=== PATIENT | male | born 1965 | race Caucasian/White ===

== ENCOUNTER 2019-02-11 17:53 | Inpatient (IN) | payer SELFPAY ==
[~2019-02-11] VITALS: Ht 177.8 cm; Wt 74.0 kg
[2019-02-11] MEDS ORDERED: METF500T16 PO (19:13)
[2019-02-11] MEDS ORDERED: IV NORMAL SALINE 1000ML BAG 1,000 ML IV ONE ×2 (19:15→20:00)
[2019-02-11 19:24] LABS: BASO % 0 % (0-3); EOS % 0 % (0-3); HEMATOCRIT 42.9 % (39.0-53.0); HEMOGLOBIN 14.2 g/dL (13.0-17.5); LYMPH # 0.2 x10^3/uL (1.0-4.8); LYMPH % 2 % (24-48); MEAN CORPUSCULAR HEMOGLOBIN 33 pg (25-35); MEAN CORPUSCULAR HGB CONC 33 g/dL (31-37); MEAN CORPUSCULAR VOLUME 99 fL (79-100); MONO # 0.8 x10^3/uL (0.0-1.1); MONO % 7 % (0-9); NEUT # 10.9 x10^3/uL (1.8-7.7); NEUT % 91 % (31-73); PLATELET COUNT 330 x10^3/uL (140-400); RED BLOOD COUNT 4.33 x10^6/uL (4.30-5.70); RED CELL DISTRIBUTION WIDTH 13.9 % (11.5-14.5)
[2019-02-11 19:34] LABS: PROTHROMBIN TIME PATIENT 16.1 SEC (11.7-14.0)
[2019-02-11 19:50] LABS: ALBUMIN 3.2 g/dL (3.4-5.0); ALBUMIN/GLOBULIN RATIO 0.6 (1.0-1.7); CALCIUM 7.3 mg/dL (8.5-10.1); MAGNESIUM 3.1 mg/dL (1.8-2.4); TOTAL BILIRUBIN 0.7 mg/dL (0.2-1.0); TOTAL PROTEIN 8.8 g/dL (6.4-8.2)
[2019-02-11] MEDS ORDERED: ASPIRIN RECTAL 300 MG SUPP. PR ONE (20:00)
[2019-02-11] MEDS ORDERED: INSULIN REGULAR VIAL 150 UNIT in 0.9 % SODIUM CHLORIDE 150ML 150 ML IV PRN (20:00)
[2019-02-11] MEDS ORDERED: INSULIN REGULAR 100 UNIT/ML 3ML VIAL. SQ ONE (20:00)
[2019-02-11] MEDS ORDERED: POTASSIUM CHLORIDE 10MEQ 100 ML IV PRN ×3 (20:00)
[2019-02-11] MEDS ORDERED: INSULIN,REGULAR 150 UNIT DRIP 150 ML IV PRN (20:15)
[2019-02-11 20:18] LABS: % BANDS 4 % (0-9); % LYMPHS 4 % (24-48); % MONOS 8 % (0-10); % SEGS 84 % (35-66); PLATELET CLUMP PRESENT; PLT ESTIMATE ADEQUATE (ADEQUATE)
--- NOTE | 2019-02-11 20:20 | RAD ---
PQRS Compliance Statement: One or more of the following individualized dose reduction techniques were utilized for this examination: 1. Automated exposure control 2. Adjustment of the mA and/or kV according to patient size 3. Use of iterative reconstruction technique CT head without contrast 02/11/2019 7:07 PM INDICATION: Altered mental status COMPARISON: None available TECHNIQUE: Multiple axial CT images of the head were obtained from skull base through the vertex without intravenous contrast. FINDINGS: Head: Ventricles, sulci and basal cisterns are within normal limits. There is no hydrocephalus. Keith-white matter differentiation is normal. There is no acute intracranial hemorrhage. There is no mass, mass effect or midline shift. Posterior fossa is normal in appearance. Visualized portions of the orbits are normal. Paranasal sinuses are well aerated. Mastoid air cells are well aerated. Scalp and calvaria are normal. IMPRESSION: No acute intracranial hemorrhage. Electronically signed by: Pretty Deal MD (02/11/2019 8:17 PM) [facility]
[2019-02-11 20:23] LABS: CREATININE 20.7 mg/dL (0.7-1.3); GFR 2.4
[2019-02-11] MEDS ORDERED: ONDANSETRON PF 4 MG/2 ML VIAL. IV PRN (20:30)
[2019-02-11 20:32] LABS: BASE EXCESS COOX -17 mmol/L (-3-3); HCO3 COOX 8 mmol/L (21-28); METHEMOGLOBIN 0.6 % (0.0-1.9); OXYHEMOGLOBIN 92.3 %; PCO2 COOX 21 mmHg (35-46); PO2 COOX 84 mmHg (75-108); SAT O2 COOX 93 % (92-99)
--- NOTE | 2019-02-11 20:48 | PHYS DOC ---
Past Medical History Past Medical History: Diabetes-Type II Past Medical History Limited due to altered mental status Past Surgical History: No Surgical History Past Surgical History Limited due to altered mental status Additional Information: Nonsmoker Alcohol Use: None Drug Use: None Social History Limited due to altered mental status Adult General Chief Complaint Chief Complaint: ALTERED MENTAL STATUS HPI HPI 53-year-old male presents by private vehicle with his family with report of being "ill �1 week ". Patient reports has been unable to keep any medication or fluid down. Patient reports history of diabetes mellitus. Reports his been noncompliant with his medications. She reports he has felt so weak that he has been unable to ambulate over the last 2 days. Family is concerned as patient intermittently is confused. Denies fever or chills. Reports sore throat. Denies trauma. Denies chest pain or headache. History of presents illness limited due to altered mental status. Review of Systems Review of Systems Constitutional: Denies fever or chills Eyes: Denies redness or eye pain HENT: Denies nasal congestion; reports sore throat Respiratory: Denies cough or shortness of breath Cardiovascular: Denies chest pain or palpitations GI: Reports nausea and vomiting : Denies dysuria or hematuria Musculoskeletal: Denies back pain Integument: Denies rash or skin lesions Neurologic: Reports generalized weakness Review of systems limited due to patient's altered mental status Current Medications Current Medications Current Medications Medications (Trade) Dose Ordered Sig/Ismael Start Time Stop Time Status Last Admin Dose Admin Aspirin (Aspirin Rectal Supp) 300 mg 1X ONCE 02/11/19 20:00 02/11/19 20:03 DC 02/11/19 20:21 300 MG Calcium Gluconate (Calcium Gluconate) 1,000 mg 1X ONCE 02/11/19 21:00 02/11/19 21:01 DC 02/11/19 21:29 1,000 MG Insulin Human Regular 150 ml @ 0 mls/hr CONT PRN PRN 02/11/19 20:15 02/11/19 23:00 02/11/19 20:21 1 MLS/HR Insulin Human Regular (HumuLIN R VIAL) 9 unit 1X ONCE 02/11/19 20:00 02/11/19 20:01 DC 02/11/19 20:21 9 UNIT Insulin Human Regular 150 unit/ Sodium Chloride 151.5 ml @ 0 mls/hr CONT PRN PRN 02/11/19 20:00 Ondansetron HCl (Zofran) 4 mg PRN Q8HRS PRN 02/11/19 20:30 02/12/19 20:29 Potassium Chloride/Water 100 ml @ 100 mls/hr PRN Q1HR PRN 02/11/19 20:00 Sodium Chloride 1,000 ml @ 1,000 mls/hr 1X ONCE 02/11/19 20:00 02/11/19 20:59 DC 02/11/19 20:21 1,000 MLS/HR Allergies Allergies Allergies Coded Allergies Type Severity Reaction Last Updated Verified No Known Drug Allergies 02/11/19 No Physical Exam Physical Exam Constitutional: Well developed, well nourished, no acute distress, dehydration noted HENT: Normocephalic, atraumatic, oropharynx dry Eyes: PERRL, EOMI, conjunctiva normal, no discharge Neck: Normal range of motion, no tenderness, supple, no meningeal signs noted Cardiovascular: Heart rate tachycardic, regular rhythm Lungs & Thorax: Bilateral breath sounds clear to auscultation, no wheezing Abdomen: Soft, no tenderness Skin: Warm, dry, no erythema, dry Back: No tenderness, no CVA tenderness Extremities: No tenderness, ROM intact, no edema Neurologic: Alert and oriented x3, slow to respond, generalized weakness, strength to BLE 4/5 and BUE 4/5, no focal deficits noted Psychologic: Affect normal, judgement normal Current Patient Data Vital Signs Vital Signs Date Time Temp Pulse Resp B/P (MAP) Pulse Ox O2 Delivery O2 Flow Rate FiO2 02/11/19 21:00 102 26 94 02/11/19 19:01 98.0 141/79 (99) Room Air 98.0 Lab Values Laboratory Tests Test 02/11/19 19:00 02/11/19 20:20 White Blood Count 12.0 x10^3/uL (4.0-11.0) H Red Blood Count 4.33 x10^6/uL (4.30-5.70) Hemoglobin 14.2 g/dL (13.0-17.5) Hematocrit 42.9 % (39.0-53.0) Mean Corpuscular Volume 99 fL (79-100) Mean Corpuscular Hemoglobin 33 pg (25-35) Mean Corpuscular Hemoglobin Concent 33 g/dL (31-37) Red Cell Distribution Width 13.9 % (11.5-14.5) Platelet Count 330 x10^3/uL (140-400) Neutrophils (%) (Auto) 91 % (31-73) H Lymphocytes (%) (Auto) 2 % (24-48) L Monocytes (%) (Auto) 7 % (0-9) Eosinophils (%) (Auto) 0 % (0-3) Basophils (%) (Auto) 0 % (0-3) Neutrophils # (Auto) 10.9 x10^3/uL (1.8-7.7) H Lymphocytes # (Auto) 0.2 x10^3/uL (1.0-4.8) L Monocytes # (Auto) 0.8 x10^3/uL (0.0-1.1) Eosinophils # (Auto) 0.0 x10^3/uL (0.0-0.7) Basophils # (Auto) 0.0 x10^3/uL (0.0-0.2) Segmented Neutrophils % 84 % (35-66) H Band Neutrophils % 4 % (0-9) Lymphocytes % 4 % (24-48) L Monocytes % 8 % (0-10) Platelet Estimate Adequate (ADEQUATE) Platelet Clumps, EDTA Present Prothrombin Time 16.1 SEC (11.7-14.0) H Prothrombin Time INR 1.3 (0.8-1.1) H Activated Partial Thromboplast Time 26 SEC (24-38) Sodium Level 141 mmol/L (136-145) Potassium Level 7.0 mmol/L (3.5-5.1) *H Chloride Level 91 mmol/L (98-107) L Carbon Dioxide Level 7 mmol/L (21-32) *L Anion Gap 43 (6-14) H Blood Urea Nitrogen 212 mg/dL (8-26) H Creatinine 20.7 mg/dL (0.7-1.3) H Estimated GFR (Cockcroft-Gault) 2.4 BUN/Creatinine Ratio 10 (6-20) Glucose Level 737 mg/dL (70-99) *H Lactic Acid Level 2.9 mmol/L (0.4-2.0) H Calcium Level 7.3 mg/dL (8.5-10.1) L Magnesium Level 3.1 mg/dL (1.8-2.4) H Total Bilirubin 0.7 mg/dL (0.2-1.0) Aspartate Amino Transferase (AST) 18 U/L (15-37) Alanine Aminotransferase (ALT) 16 U/L (16-63) Alkaline Phosphatase 161 U/L (46-116) H Ammonia < 10 mcmol/L (11-34) L Creatine Kinase 2033 U/L (39-308) H Creatine Kinase MB (Mass) 2.8 ng/mL (0.0-3.6) Creatine Kinase MB Relative Index 0.1 % (0-4) Troponin I Quantitative 0.104 ng/mL (0.000-0.055) Total Protein 8.8 g/dL (6.4-8.2) H Albumin 3.2 g/dL (3.4-5.0) L Albumin/Globulin Ratio 0.6 (1.0-1.7) L Acetone Level Sm pos (NEG) O2 Saturation 93 % (92-99) Arterial Blood pH 7.23 (7.35-7.45) L Arterial Blood pCO2 at Patient Temp 21 mmHg (35-46) L Arterial Blood pO2 at Patient Temp 84 mmHg (75-108) Arterial Blood HCO3 8 mmol/L (21-28) L Arterial Blood Base Excess -17 mmol/L (-3-3) L Oxyhemoglobin 92.3 % Methemoglobin 0.6 % (0.0-1.9) Carbon Monoxide, Quantitative 0.2 % (0.0-1.9) FiO2 21 Laboratory Tests 02/11/19 19:00 Laboratory Tests 02/11/19 19:00 EKG EKG @1904 Sinus tachycardia at 101bpm, NO ST elevation, hyperacute t waves noted, Radiology/Procedures Radiology/Procedures PROCEDURE: CT HEAD WO CONTRAST PQRS Compliance Statement: One or more of the following individualized dose reduction techniques were utilized for this examination: 1. Automated exposure control 2. Adjustment of the mA and/or kV according to patient size 3. Use of iterative reconstruction technique CT head without contrast 02/11/2019 7:07 PM INDICATION: Altered mental status COMPARISON: None available TECHNIQUE: Multiple axial CT images of the head were obtained from skull base through the vertex without intravenous contrast. FINDINGS: Head: Ventricles, sulci and basal cisterns are within normal limits. There is no hydrocephalus. Keith-white matter differentiation is normal. There is no acute intracranial hemorrhage. There is no mass, mass effect or midline shift. Posterior fossa is normal in appearance. Visualized portions of the orbits are normal. Paranasal sinuses are well aerated. Mastoid air cells are well aerated. Scalp and calvaria are normal. IMPRESSION: No acute intracranial hemorrhage. Electronically signed by: Pretty Deal MD (02/11/2019 8:17 PM) [facility] CXR AP (preliminary interpretation by ED physician) Course & Med Decision Making Course & Med Decision Making Pertinent Labs and Imaging studies reviewed. (See chart for details) Patient presents with history of present illness and physical exam concerning for acute diabetic ketoacidosis. Ketosis noted on patient's breath. Patient clinically appears very dry. IV fluid hydration boluses provided of 0.9% normal saline �2. EKG with sinus tachycardia and hyperacute t waves. CT head/chest x- ray without acute process. Labs obtained and posted to chart. Patient acidotic to 7.23 with high anion gap. Hyperkalemia noted. BUN and Creat significantly elevated. Corrected serum sodium 156.3. Lactic acid elevated. 0.45% NS provided at rate. Patient requiring ICU admission for further evaluation and treatment. Discussed with Dr. Howard (hospitalist) who is in agreement with ICU admission. Discussed case with Dr. Argueta (nephrology) who plans to dialyze patient this asia barroso. Requests interventional dialysis cath to be placed. Discussed case with Dr. Mobley (interventional radiology) regarding. Discussed findings and plan with patient and family, who acknowledge understanding and agreement. Dragon Disclaimer Dragon Disclaimer This electronic medical record was generated, in whole or in part, using a voice recognition dictation system. Departure Departure Impression: Primary Impression: DKA (diabetic ketoacidoses) Additional Impressions: Elevated troponin Renal failure Disposition: ADMITTED INPATIENT Admitting Physician: MIRANDA Alberto) Condition: CRITICAL Referrals: NO PCP (PCP) Critical Care Time Critical care time was 45 minutes which includes time at bedside, spent in discussion of patient's care with specialists and/or family members, with interpretation of laboratory and/or radiological studies and is exclusive of procedures. Problem Qualifiers Primary Impression: DKA (diabetic ketoacidoses) Diabetes mellitus type: type 2 Diabetes mellitus complication detail: without coma Qualified Codes: E11.10 - Type 2 diabetes mellitus with ketoacidosis without coma Additional Impressions: Renal failure Renal failure chronicity: acute Acute renal failure type: unspecified Qualified Codes: N17.9 - Acute kidney failure, unspecified SVEN COLLADO DO Feb 11, 2019 20:48
[2019-02-11] MEDS ORDERED: CALCIUM GLUCONATE 1,000 MG/10 ML VIAL. IVP ONE (21:00)
[2019-02-11] MEDS ORDERED: IV 1/2 NORMAL SALINE 1,000 ML IV ONE (21:30)
[2019-02-11 21:59] LABS: BILIRUBIN,URINE MODERATE (NEG); CLARITY,URINE CLEAR; COLOR,URINE YELLOW; NITRITE,URINE NEGATIVE (NEG); PH,URINE 6.5; PROTEIN,URINE 100 mg/dL (NEG-TRACE); UROBILINOGEN,URINE 0.2 mg/dL (0.2 mg/dL)
--- NOTE | 2019-02-11 22:00 | NUR ---
Pt arrived on unit accompanied by ED RN, pt on insulin drip per glucostabilizer and pt is being treated per DKA protocol. Family in waiting room were brought back and signed consent forms for placement of temporary hemodialysis catheter and hemodialysis treatment. ED bridge orders reviewed and drip rates verified.
[2019-02-11 22:08] LABS: BARBITURATES NEG (NEG); BENZODIAZEPINES NEG (NEG); CANNABINOIDS NEG (NEG); COCAINE NEG (NEG); METHADONE NEG (NEG); OPIATES NEG (NEG); PHENCYCLIDINE NEG (NEG)
[2019-02-11 22:09] LABS: SQUAMOUS EPITHELIAL CELL,UR MOD /LPF
[2019-02-11 22:10] LABS: AMPHETAMINE/METHAMPHETAMINE NEG (NEG); BACTERIA,URINE 0 /HPF (0-FEW)
[2019-02-11 22:15] VITALS: BP 169/86
[2019-02-11 22:30] VITALS: BP 163/85
[2019-02-11] MEDS ORDERED: LIDOCAINE WITH 8.4% SOD BICARB 3 ML DISP.SYRIN. ONE (22:37)
[2019-02-11 22:45] VITALS: BP 149/79
[2019-02-11 23:00] VITALS: BP 156/88
[2019-02-11] MEDS ORDERED: LIDOCAINE WITH 8.4% SOD BICARB 3 ML DISP.SYRIN. IJ ONE (23:00)
[2019-02-11 23:06] LABS: CALCIUM 6.9 mg/dL (8.5-10.1); MAGNESIUM 2.9 mg/dL (1.8-2.4); PHOSPHORUS 8.5 mg/dL (2.6-4.7); POTASSIUM 4.9 mmol/L (3.5-5.1)
[2019-02-11 23:15] VITALS: BP 173/96
[2019-02-11 23:17] LABS: GFR 2.5
[2019-02-11] MEDS ORDERED: IV NORMAL SALINE 1000ML BAG 1,000 ML IV PRN ×2 (23:23)
[2019-02-11] MEDS ORDERED: DIALYSIS PATIENT. MC PRN ×2 (23:30)
--- NOTE | 2019-02-11 23:48 | PDOC ---
Exam Security Compliance Specialist Security Compliance Specialist Itz Dispatch Clerk Dispatch Clerk None Pre-Procedure Diagnosis Pre-Procedure Diagnosis SARHA, DKA Post-Procedure Diagnosis Post-Procedure Diagnosis Same Procedure Performed Procedure Performed RIJ Temp HD catheter placement Type of Anesthesia Type of Anesthesia Local Estimated Blood Loss EBL: 10 cc Specimens Specimans None Drain/Tubes Drains/Tubes 20 cm trifusion HD cath Condition of Patient Condition of Patient Stable ZACHARY YOO MD Feb 11, 2019 23:48
[2019-02-12] VITALS (24 sets, daily range): BP systolic 104–165; BP diastolic 65–92
[2019-02-12] MEDS ORDERED: IV 1/2 NORMAL SALINE 1,000 ML IV SCH (00:14)
--- NOTE | 2019-02-12 00:31 | RAD ---
INDICATION: Catheter placement COMPARISON: Earlier same day FINDINGS: Single view of chest obtained. Cardiomediastinal silhouette mildly prominent but could be from portable technique. Hypoexpanded exam the lungs. Interstitial and groundglass opacities bilaterally. Right-sided vascular catheter with tip projecting over the expected location of the atriocaval junction. IMPRESSION: 1. Right-sided central venous catheter with tip near expected location of atriocaval junction. 2. Hypoexpanded exam with mild ground glass interstitial opacities bilaterally. Could be from mild edema unless there is suspicion for infection clinically. Electronically signed by: Negro Barrios MD (02/12/2019 12:28 AM) [facility]
--- NOTE | 2019-02-12 00:39 | NUR ---
Pt's Potassium at 4.9 mEq/L, pt to undergo dialysis, will withhold Potassium replacement due to pt undergoing hemodialysis. Discussed with customs compliance specialist.
--- NOTE | 2019-02-12 00:46 | NUR ---
CXR read by radiology stating trialysis catheter is placed properly and ok to use; also ok to draw labs and administer medication through 3rd lumen.
[2019-02-12] MEDS ORDERED: PIPERACILLIN/TAZOBACTAM 3.375 GM in IV NORMAL SALINE 50ML 50 ML IV SCH (01:00)
[2019-02-12] MEDS: PIPERACILLIN/TAZOBACTAM 2.25 GM in IV NORMAL SALINE 50ML 50 ML IV SCH ×4 (01:07→21:55)
[2019-02-12] MEDS: IV DEXTROSE 5 %-0.45 % NACL 1,000 ML IV SCH ×5 (01:43→17:32)
--- NOTE | 2019-02-12 02:30 | NUR ---
Pt finishing dialysis when pt began seizing. Full body tonic/clonic seizure lasting approximately 40 seconds was monitored by RN's and pt turned to his side until completion of seizure. Dr. Howard called and orders received for Valium IV 2-4 mg PRN for seizure activity. Contacted pharmacy and order was converted to ativan 1-2 mg PRN for seizure activity as valium IV is not currently available. Also received orders to consult neurology, cardiology, and infectious disease. Will continue to monitor pt.
[2019-02-12 03:25] LABS: CALCIUM 8.9 mg/dL (8.5-10.1); CREATININE 12.6 mg/dL (0.7-1.3); GFR 4.2
[2019-02-12 03:28] LABS: MAGNESIUM 2.4 mg/dL (1.8-2.4); PHOSPHORUS 4.6 mg/dL (2.6-4.7)
[2019-02-12 03:33] LABS: CHOLESTEROL/HDL RATIO 4.7
[2019-02-12] MEDS ORDERED: AZITHROMYCIN 500 MG in IV NORMAL SALINE 250ML 250 ML IV ONE (05:00)
[2019-02-12] MEDS ORDERED: IV NORMAL SALINE 250ML 250 ML IV ONE (05:00)
--- NOTE | 2019-02-12 06:21 | EKG ---
[facility] [address] [place] [address] Test Date: 2019-02-11 Test Time: 19:04:27 Pat Name: BK BUTT Department: Room: 111 1 Gender: M Endoscopic Technician: : 1965 Requested By: SVEN COLLADO Order Number: [id number] Reading MD: Sky Palmer MD Measurements Intervals [place] Rate: 101 P: 54 ME: 124 QRS: 42 QRSD: 72 T: 40 QT: 344 QTc: 446 Interpretive Statements SINUS TACHYCARDIA Electronically Signed On 02-12-2019 11:39:20 CDT by Sky Palmer MD
[2019-02-12 07:17] LABS: CALCIUM 6.8 mg/dL (8.5-10.1); CREATININE 14.3 mg/dL (0.7-1.3); GFR 3.7; POTASSIUM 3.5 mmol/L (3.5-5.1)
[2019-02-12 07:21] LABS: MAGNESIUM 1.9 mg/dL (1.8-2.4); PHOSPHORUS 4.5 mg/dL (2.6-4.7)
--- NOTE | 2019-02-12 07:52 | RAD ---
Examination: PORTABLE CHEST 1V History: Altered mental status Comparison/Correlation: None Findings: Portable upright frontal view of the chest was obtained. Heart size and pulmonary vasculature are normal. No focal dense consolidation or pleural effusion. No suspicious bony process. No pneumothorax. Impression: No active disease. Electronically signed by: Car Bradley MD (02/12/2019 7:50 AM) [facility]
[2019-02-12] MEDS: POTASSIUM CHL 20MEQ PREMIX 50 ML IV SCH ×4 (08:05→18:18)
[2019-02-12 08:14] LABS: BASE EXCESS ABG -1 mmol/L (-3-3); HCO3 ABG 22 mmol/L (21-28); PCO2 ABG 32 mmHg (35-46); PO2 ABG 95 mmHg (75-108); SAT O2 ABG 97 % (92-99)
--- NOTE | 2019-02-12 08:21 | NUR ---
SS following for discharge planning. SS reviewed pt chart. Pt is self pay pt. HCFS following for self pay status. Pt is from home and is currently requiring oxygen. No discharge needs noted at this time. SS will continue to follow for discharge planning.
[2019-02-12] MEDS ORDERED: MAGNESIUM SULFATE 4GM 100 ML IV PRN (09:00)
--- NOTE | 2019-02-12 09:09 | NUR ---
Functional screen complete. Pt admitted with one week of feeling very ill. Pt so we 2 days prior to admit that he was unable to walk. Spoke with Mitzi FREY who feels pt would benefit from PT/OT assessment. Please write PT/OT eval and treat orders if you agree. Addendum: 02/12/19 at 0910 by JULIANNE JALLOH PT Amended: Links added.
--- NOTE | 2019-02-12 10:19 | PDOC ---
Infectious Disease Note Vital Sign Vital Signs Vital Signs Date Time Temp Pulse Resp B/P (MAP) Pulse Ox O2 Delivery O2 Flow Rate FiO2 02/12/19 09:00 94 23 139/72 (94) 96 Nasal Cannula 3.0 02/12/19 08:00 97.7 97.7 Labs Lab Laboratory Tests Test 02/11/19 19:00 02/11/19 20:20 02/11/19 21:35 02/11/19 21:50 White Blood Count 12.0 x10^3/uL (4.0-11.0) Red Blood Count 4.33 x10^6/uL (4.30-5.70) Hemoglobin 14.2 g/dL (13.0-17.5) Hematocrit 42.9 % (39.0-53.0) Mean Corpuscular Volume 99 fL (79-100) Mean Corpuscular Hemoglobin 33 pg (25-35) Mean Corpuscular Hemoglobin Concent 33 g/dL (31-37) Red Cell Distribution Width 13.9 % (11.5-14.5) Platelet Count 330 x10^3/uL (140-400) Neutrophils (%) (Auto) 91 % (31-73) Lymphocytes (%) (Auto) 2 % (24-48) Monocytes (%) (Auto) 7 % (0-9) Eosinophils (%) (Auto) 0 % (0-3) Basophils (%) (Auto) 0 % (0-3) Neutrophils # (Auto) 10.9 x10^3/uL (1.8-7.7) Lymphocytes # (Auto) 0.2 x10^3/uL (1.0-4.8) Monocytes # (Auto) 0.8 x10^3/uL (0.0-1.1) Eosinophils # (Auto) 0.0 x10^3/uL (0.0-0.7) Basophils # (Auto) 0.0 x10^3/uL (0.0-0.2) Segmented Neutrophils % 84 % (35-66) Band Neutrophils % 4 % (0-9) Lymphocytes % 4 % (24-48) Monocytes % 8 % (0-10) Platelet Estimate Adequate (ADEQUATE) Platelet Clumps, EDTA Present Prothrombin Time 16.1 SEC (11.7-14.0) Prothromb Time International Ratio 1.3 (0.8-1.1) Activated Partial Thromboplast Time 26 SEC (24-38) Sodium Level 141 mmol/L (136-145) Potassium Level 7.0 mmol/L (3.5-5.1) Chloride Level 91 mmol/L (98-107) Carbon Dioxide Level 7 mmol/L (21-32) Anion Gap 43 (6-14) Blood Urea Nitrogen 212 mg/dL (8-26) Creatinine 20.7 mg/dL (0.7-1.3) Estimated GFR (Cockcroft-Gault) 2.4 BUN/Creatinine Ratio 10 (6-20) Glucose Level 737 mg/dL (70-99) 705 mg/dL (70-99) Lactic Acid Level 2.9 mmol/L (0.4-2.0) Calcium Level 7.3 mg/dL (8.5-10.1) Magnesium Level 3.1 mg/dL (1.8-2.4) Total Bilirubin 0.7 mg/dL (0.2-1.0) Aspartate Amino Transf (AST/SGOT) 18 U/L (15-37) Alanine Aminotransferase (ALT/SGPT) 16 U/L (16-63) Alkaline Phosphatase 161 U/L (46-116) Ammonia < 10 mcmol/L (11-34) Creatine Kinase 2033 U/L (39-308) Creatine Kinase MB (Mass) 2.8 ng/mL (0.0-3.6) Creatine Kinase MB Relative Index 0.1 % (0-4) Troponin I Quantitative 0.104 ng/mL (0.000-0.055) Total Protein 8.8 g/dL (6.4-8.2) Albumin 3.2 g/dL (3.4-5.0) Albumin/Globulin Ratio 0.6 (1.0-1.7) Acetone Level Sm pos (NEG) O2 Saturation 93 % (92-99) Arterial Blood pH 7.23 (7.35-7.45) Arterial Blood pCO2 at Patient Temp 21 mmHg (35-46) Arterial Blood pO2 at Patient Temp 84 mmHg (75-108) Arterial Blood HCO3 8 mmol/L (21-28) Arterial Blood Base Excess -17 mmol/L (-3-3) Oxyhemoglobin 92.3 % Methemoglobin 0.6 % (0.0-1.9) Carbon Monoxide, Quantitative 0.2 % (0.0-1.9) FiO2 21 Urine Collection Type Unknown Urine Color Yellow Urine Clarity Clear Urine pH 6.5 Urine Specific [place] 1.020 Urine Protein 100 mg/dL (NEG-TRACE) Urine Glucose (UA) >=1000 mg/dL (NEG) Urine Ketones (Stick) 15 mg/dL (NEG) Urine Blood Large (NEG) Urine Nitrite Negative (NEG) Urine Bilirubin Moderate (NEG) Urine Urobilinogen Dipstick 0.2 mg/dL (0.2 mg/dL) Urine Leukocyte Esterase Small (NEG) Urine RBC 6-10 /HPF (0-2) Urine WBC 11-20 /HPF (0-4) Urine Squamous Epithelial Cells Mod /LPF Urine Bacteria 0 /HPF (0-FEW) Urine Mucus Mod /LPF Urine Opiates Screen Neg (NEG) Urine Methadone Screen Neg (NEG) Urine Barbiturates Neg (NEG) Urine Phencyclidine Screen Neg (NEG) Urine Amphetamine/Methamphetamine Neg (NEG) Urine Benzodiazepines Screen Neg (NEG) Urine Cocaine Screen Neg (NEG) Urine Cannabinoids Screen Neg (NEG) Urine Ethyl Alcohol Neg (NEG) Test 02/11/19 22:09 02/11/19 22:30 02/11/19 23:18 02/11/19 23:45 Glucose (Fingerstick) 560 mg/dL (70-99) 438 mg/dL (70-99) Sodium Level 147 mmol/L (136-145) Potassium Level 4.9 mmol/L (3.5-5.1) Chloride Level 102 mmol/L (98-107) Carbon Dioxide Level 12 mmol/L (21-32) Anion Gap 33 (6-14) Blood Urea Nitrogen 221 mg/dL (8-26) Creatinine 20.0 mg/dL (0.7-1.3) Estimated GFR (Cockcroft-Gault) 2.5 Glucose Level 605 mg/dL (70-99) Lactic Acid Level 2.9 mmol/L (0.4-2.0) Calcium Level 6.9 mg/dL (8.5-10.1) Phosphorus Level 8.5 mg/dL (2.6-4.7) Magnesium Level 2.9 mg/dL (1.8-2.4) Troponin I Quantitative 0.098 ng/mL (0.000-0.055) Hepatitis B Surface Antigen Nonreactive (Nonreactive) Hepatitis B Surface Antibody Nonreactive Test 02/12/19 00:23 02/12/19 01:26 02/12/19 02:27 02/12/19 02:30 Glucose (Fingerstick) 296 mg/dL (70-99) 147 mg/dL (70-99) 132 mg/dL (70-99) Troponin I Quantitative 0.153 ng/mL (0.000-0.055) Triglycerides Level 344 mg/dL (0-150) Cholesterol Level 201 mg/dL (0-200) LDL Cholesterol, Calculated 89 mg/dL (0-100) VLDL Cholesterol, Calculated 69 mg/dL (0-40) Non-HDL Cholesterol Calculated 158 mg/dL (0-129) HDL Cholesterol 43 mg/dL (40-60) Cholesterol/HDL Ratio 4.7 Test 02/12/19 02:55 02/12/19 03:42 02/12/19 04:50 02/12/19 05:54 Sodium Level 148 mmol/L (136-145) Potassium Level 4.0 mmol/L (3.5-5.1) Chloride Level 99 mmol/L (98-107) Carbon Dioxide Level 23 mmol/L (21-32) Anion Gap 26 (6-14) Blood Urea Nitrogen 114 mg/dL (8-26) Creatinine 12.6 mg/dL (0.7-1.3) Estimated GFR (Cockcroft-Gault) 4.2 Glucose Level 150 mg/dL (70-99) Lactic Acid Level 5.9 mmol/L (0.4-2.0) Calcium Level 8.9 mg/dL (8.5-10.1) Phosphorus Level 4.6 mg/dL (2.6-4.7) Magnesium Level 2.4 mg/dL (1.8-2.4) Glucose (Fingerstick) 228 mg/dL (70-99) 251 mg/dL (70-99) 211 mg/dL (70-99) Test 02/12/19 06:40 02/12/19 07:11 02/12/19 08:00 02/12/19 08:14 Sodium Level 146 mmol/L (136-145) Potassium Level 3.5 mmol/L (3.5-5.1) Chloride Level 102 mmol/L (98-107) Carbon Dioxide Level 23 mmol/L (21-32) Anion Gap 21 (6-14) Blood Urea Nitrogen 122 mg/dL (8-26) Creatinine 14.3 mg/dL (0.7-1.3) Estimated GFR (Cockcroft-Gault) 3.7 Glucose Level 156 mg/dL (70-99) Lactic Acid Level 2.9 mmol/L (0.4-2.0) Calcium Level 6.8 mg/dL (8.5-10.1) Phosphorus Level 4.5 mg/dL (2.6-4.7) Magnesium Level 1.9 mg/dL (1.8-2.4) Glucose (Fingerstick) 130 mg/dL (70-99) 97 mg/dL (70-99) O2 Saturation 97 % (92-99) Arterial Blood pH 7.46 (7.35-7.45) Arterial Blood pCO2 at Patient Temp 32 mmHg (35-46) Arterial Blood pO2 at Patient Temp 95 mmHg (75-108) Arterial Blood HCO3 22 mmol/L (21-28) Arterial Blood Base Excess -1 mmol/L (-3-3) FiO2 2 lpm nc Test 02/12/19 09:23 Glucose (Fingerstick) 145 mg/dL (70-99) Objective Assessment Aspiration Leukocytosis Acute encephalopathy SARAH requiring HD DKA Seizure Pharyngitis Plan Plan of Care Continue Zosyn, renal dose One time dose azithromycin, 02/12 f/u cultures Monitor labs D/w mother at bedside D/w nursing Critically ill Thank you [phone] D/w mother at bedside who states last week he had such a sore throat he could not swallow his meds and had URI symptoms f/u strep screen ordered but not collected - d/w nursing this am CBC this am May need additional studies but clinically he is already improving 35 mins CC time Attending Co-Sign Attending Co-Sign The patient was seen and interviewed as well as examined at the bedside. The chart was reviewed. The case was discussed. Agree with the plan of care. TANIKA JOSEPH APRN Feb 12, 2019 10:19 NEAL MIRANDA MD Feb 12, 2019 11:35
--- NOTE | 2019-02-12 10:40 | PDOC2 ---
NEUROLOGY CONSULT Date of Admission Date of Admission DATE: 02/12/19 TIME: 10:29 Reason for Consult Reason for Consult: Seizures Referring Physician Referring Physician: Dr. Greer Source Source: Caregiver (Mother), Chart review History of Present Illness History of Present Illness The patient is a 53-year-old right-handed male who came to the emergency department yesterday with one week of increasing weakness, confusion, nausea, vomiting, anorexia, and therefore was not compliant with his diabetes medications. He was found to be in renal failure, diabetic ketoacidosis, along with lactic acidosis and evidence of sepsis. He had dialysis early this morning and shortly afterwards, had a 45-second seizure. The patient has remained confused. There is no history of stroke, seizure, or head injury. 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, lives with his aunt, occasional alcohol, no tobacco or street drugs Current Medications Current Medications Current Medications Sodium Chloride 1,000 ml @ 1,000 mls/hr 1X ONCE IV Last administered on 02/11/19at 19:19; Start 02/11/19 at 19:15; Stop 02/11/19 at 20:14; Status DC Sodium Chloride 1,000 ml @ 1,000 mls/hr 1X ONCE IV Last administered on 02/11/19at 20:21; Start 02/11/19 at 20:00; Stop 02/11/19 at 20:59; Status DC Insulin Human Regular (HumuLIN R VIAL) 9 unit 1X ONCE SQ Last administered on 02/11/19at 20:21; Start 02/11/19 at 20:00; Stop 02/11/19 at 20:01; Status DC Insulin Human Regular 150 unit/ Sodium Chloride 151.5 ml @ 0 mls/hr CONT PRN PRN IV PER PROTOCOL; Start 02/11/19 at 20:00 Potassium Chloride/Water 100 ml @ 100 mls/hr PRN Q1HR PRN IV SEE COMMENTS; Start 02/11/19 at 20:00 Potassium Chloride/Water 100 ml @ 100 mls/hr PRN Q1HR PRN IV SEE COMMENTS; Start 02/11/19 at 20:00 Potassium Chloride/Water 100 ml @ 100 mls/hr PRN Q1HR PRN IV SEE COMMENTS; Start 02/11/19 at 20:00 Magnesium Sulfate/ Dextrose 100 ml @ 25 mls/hr PRN DAILY PRN IV SEE COMMENTS; Start 02/12/19 at 09:00 Aspirin (Aspirin Rectal Supp) 300 mg 1X ONCE GA Last administered on 02/11/19at 20:21; Start 02/11/19 at 20:00; Stop 02/11/19 at 20:03; Status DC Insulin Human Regular 150 ml @ 0 mls/hr CONT PRN PRN IV PER PROTOCOL Last administered on 02/11/19at 20:21; Start 02/11/19 at 20:15; Stop 02/11/19 at 23:00; Status DC Ondansetron HCl (Zofran) 4 mg PRN Q8HRS PRN IV NAUSEA/VOMITING; Start 02/11/19 at 20:30; Stop 02/12/19 at 20:29 Calcium Gluconate (Calcium Gluconate) 1,000 mg 1X ONCE IVP Last administered on 02/11/19at 21:29; Start 02/11/19 at 21:00; Stop 02/11/19 at 21:01; Status DC Sodium Chloride 1,000 ml @ 500 mls/hr 1X ONCE IV Last administered on 02/11/19at 21:29; Start 02/11/19 at 21:30; Stop 02/11/19 at 23:29; Status DC Lidocaine/Sodium Bicarbonate (Buffered Lidocaine 1%) 3 ml STK-MED ONCE .ROUTE ; Start 02/11/19 at 22:37; Stop 02/11/19 at 22:37; Status DC Lidocaine/Sodium Bicarbonate (Buffered Lidocaine 1%) 3 ml 1X ONCE IJ Last administered on 02/11/19at 23:10; Start 02/11/19 at 23:00; Stop 02/11/19 at 23:01; Status DC Sodium Chloride 1,000 ml @ 1,000 mls/hr Q1H PRN IV hypotension; Start 02/11/19 at 23:23; Stop 02/12/19 at 05:22; Status DC Sodium Chloride 1,000 ml @ 400 mls/hr Q2H30M PRN IV PATENCY; Start 02/11/19 at 23:23; Stop 02/12/19 at 11:22 Info (PHARMACY MONITORING -- do not chart) 1 each PRN DAILY PRN MC SEE COMMENTS; Start 02/11/19 at 23:30; Status UNV Info (PHARMACY MONITORING -- do not chart) 1 each PRN DAILY PRN MC SEE COMMENTS; Start 02/11/19 at 23:30 Sodium Chloride 1,000 ml @ 250 mls/hr Q4H IV Last administered on 02/12/19at 00:20; Start 02/12/19 at 00:14; Stop 02/12/19 at 01:32; Status DC Piperacillin Sod/ Tazobactam Sod 3.375 gm/Sodium Chloride 50 ml @ 100 mls/hr Q6HRS IV ; Start 02/12/19 at 01:00; Status UNV Piperacillin Sod/ Tazobactam Sod 2.25 gm/Sodium Chloride 50 ml @ 100 mls/hr Q8HRS IV Last administered on 02/12/19at 06:48; Start 02/12/19 at 01:00 Dextrose/Sodium Chloride 1,000 ml @ 250 mls/hr Q4H IV Last administered on 02/12/19at 06:28; Start 02/12/19 at 01:32 Lorazepam (Ativan Inj) 1 mg PRN Q10MIN PRN IV SEIZURE; Start 02/12/19 at 03:00 Sodium Chloride 250 ml @ 250 mls/hr 1X ONCE IV Last administered on 02/12/19at 05:25; Start 02/12/19 at 05:00; Stop 02/12/19 at 05:59; Status DC Azithromycin 500 mg/Sodium Chloride 250 ml @ 250 mls/hr 1X ONCE IV Last administered on 02/12/19at 05:25; Start 02/12/19 at 05:00; Stop 02/12/19 at 05:59; Status DC Potassium Chloride/Water 50 ml @ 25 mls/hr Q2H IV Last administered on 02/12/19at 10:06; Start 02/12/19 at 08:00; Stop 02/12/19 at 11:59 Active Scripts Active Reported Metformin Hcl 500 Mg Tablet 500 Mg PO BIDWMEALS Allergies Allergies: Coded Allergies: No Known Drug Allergies (Unverified , 02/11/19) ROS Review of System Negative for fever, chills, weight loss, shortness of breath, chest pain, indigestion, hematochezia, melena, and dysuria (Before the current illness). Full 14-point review of systems is negative. Physical Exam Physical Examination General: Well-developed, well-nourished white male in no acute distress HEENT: Normocephalic and�atraumatic.�Temporal arteries�pulsatile and nontender. Neck: Supple without bruit, no meningismus� Musculoskeletal: Stability:�see neurologic. Gait exam:�see neurologic. Tone:�see neurologic.�Strength:�see neurologic.� Neurological: Mental Status: orientation, memory, attention span/concentration, language, fund of knowledge: eyes are open with dysconjugate gaze, he does not follow commands. Cranial Nerves:�Pupils equal and reactive to light, extraocular movements are�intact, gazed dysconjugate, visual mcadams are full to threat. There is no facial asymmetry. All other cranial related problems are negative except as mentioned before.�Reflexes:�0+ and symmetric with silent plantar responses. Motor:� withdraws all extremities to pain, nurse thinks he moves the right side less. Coordination and gait:�Not cooperative. Sensory:�Not cooperative.� Vitals VITALS Vital Signs Date Time Temp Pulse Resp B/P (MAP) Pulse Ox O2 Delivery O2 Flow Rate FiO2 02/12/19 09:00 94 23 139/72 (94) 96 Nasal Cannula 3.0 02/12/19 08:00 97.7 97.7 Labs Labs Laboratory Tests Test 02/11/19 19:00 02/11/19 20:20 02/11/19 21:35 02/11/19 21:50 White Blood Count 12.0 x10^3/uL (4.0-11.0) Red Blood Count 4.33 x10^6/uL (4.30-5.70) Hemoglobin 14.2 g/dL (13.0-17.5) Hematocrit 42.9 % (39.0-53.0) Mean Corpuscular Volume 99 fL (79-100) Mean Corpuscular Hemoglobin 33 pg (25-35) Mean Corpuscular Hemoglobin Concent 33 g/dL (31-37) Red Cell Distribution Width 13.9 % (11.5-14.5) Platelet Count 330 x10^3/uL (140-400) Neutrophils (%) (Auto) 91 % (31-73) Lymphocytes (%) (Auto) 2 % (24-48) Monocytes (%) (Auto) 7 % (0-9) Eosinophils (%) (Auto) 0 % (0-3) Basophils (%) (Auto) 0 % (0-3) Neutrophils # (Auto) 10.9 x10^3/uL (1.8-7.7) Lymphocytes # (Auto) 0.2 x10^3/uL (1.0-4.8) Monocytes # (Auto) 0.8 x10^3/uL (0.0-1.1) Eosinophils # (Auto) 0.0 x10^3/uL (0.0-0.7) Basophils # (Auto) 0.0 x10^3/uL (0.0-0.2) Segmented Neutrophils % 84 % (35-66) Band Neutrophils % 4 % (0-9) Lymphocytes % 4 % (24-48) Monocytes % 8 % (0-10) Platelet Estimate Adequate (ADEQUATE) Platelet Clumps, EDTA Present Prothrombin Time 16.1 SEC (11.7-14.0) Prothromb Time International Ratio 1.3 (0.8-1.1) Activated Partial Thromboplast Time 26 SEC (24-38) Sodium Level 141 mmol/L (136-145) Potassium Level 7.0 mmol/L (3.5-5.1) Chloride Level 91 mmol/L (98-107) Carbon Dioxide Level 7 mmol/L (21-32) Anion Gap 43 (6-14) Blood Urea Nitrogen 212 mg/dL (8-26) Creatinine 20.7 mg/dL (0.7-1.3) Estimated GFR (Cockcroft-Gault) 2.4 BUN/Creatinine Ratio 10 (6-20) Glucose Level 737 mg/dL (70-99) 705 mg/dL (70-99) Lactic Acid Level 2.9 mmol/L (0.4-2.0) Calcium Level 7.3 mg/dL (8.5-10.1) Magnesium Level 3.1 mg/dL (1.8-2.4) Total Bilirubin 0.7 mg/dL (0.2-1.0) Aspartate Amino Transf (AST/SGOT) 18 U/L (15-37) Alanine Aminotransferase (ALT/SGPT) 16 U/L (16-63) Alkaline Phosphatase 161 U/L (46-116) Ammonia < 10 mcmol/L (11-34) Creatine Kinase 2033 U/L (39-308) Creatine Kinase MB (Mass) 2.8 ng/mL (0.0-3.6) Creatine Kinase MB Relative Index 0.1 % (0-4) Troponin I Quantitative 0.104 ng/mL (0.000-0.055) Total Protein 8.8 g/dL (6.4-8.2) Albumin 3.2 g/dL (3.4-5.0) Albumin/Globulin Ratio 0.6 (1.0-1.7) Acetone Level Sm pos (NEG) O2 Saturation 93 % (92-99) Arterial Blood pH 7.23 (7.35-7.45) Arterial Blood pCO2 at Patient Temp 21 mmHg (35-46) Arterial Blood pO2 at Patient Temp 84 mmHg (75-108) Arterial Blood HCO3 8 mmol/L (21-28) Arterial Blood Base Excess -17 mmol/L (-3-3) Oxyhemoglobin 92.3 % Methemoglobin 0.6 % (0.0-1.9) Carbon Monoxide, Quantitative 0.2 % (0.0-1.9) FiO2 21 Urine Collection Type Unknown Urine Color Yellow Urine Clarity Clear Urine pH 6.5 Urine Specific [place] 1.020 Urine Protein 100 mg/dL (NEG-TRACE) Urine Glucose (UA) >=1000 mg/dL (NEG) Urine Ketones (Stick) 15 mg/dL (NEG) Urine Blood Large (NEG) Urine Nitrite Negative (NEG) Urine Bilirubin Moderate (NEG) Urine Urobilinogen Dipstick 0.2 mg/dL (0.2 mg/dL) Urine Leukocyte Esterase Small (NEG) Urine RBC 6-10 /HPF (0-2) Urine WBC 11-20 /HPF (0-4) Urine Squamous Epithelial Cells Mod /LPF Urine Bacteria 0 /HPF (0-FEW) Urine Mucus Mod /LPF Urine Opiates Screen Neg (NEG) Urine Methadone Screen Neg (NEG) Urine Barbiturates Neg (NEG) Urine Phencyclidine Screen Neg (NEG) Urine Amphetamine/Methamphetamine Neg (NEG) Urine Benzodiazepines Screen Neg (NEG) Urine Cocaine Screen Neg (NEG) Urine Cannabinoids Screen Neg (NEG) Urine Ethyl Alcohol Neg (NEG) Test 02/11/19 22:09 02/11/19 22:30 02/11/19 23:18 02/11/19 23:45 Glucose (Fingerstick) 560 mg/dL (70-99) 438 mg/dL (70-99) Sodium Level 147 mmol/L (136-145) Potassium Level 4.9 mmol/L (3.5-5.1) Chloride Level 102 mmol/L (98-107) Carbon Dioxide Level 12 mmol/L (21-32) Anion Gap 33 (6-14) Blood Urea Nitrogen 221 mg/dL (8-26) Creatinine 20.0 mg/dL (0.7-1.3) Estimated GFR (Cockcroft-Gault) 2.5 Glucose Level 605 mg/dL (70-99) Lactic Acid Level 2.9 mmol/L (0.4-2.0) Calcium Level 6.9 mg/dL (8.5-10.1) Phosphorus Level 8.5 mg/dL (2.6-4.7) Magnesium Level 2.9 mg/dL (1.8-2.4) Troponin I Quantitative 0.098 ng/mL (0.000-0.055) Hepatitis B Surface Antigen Nonreactive (Nonreactive) Hepatitis B Surface Antibody Nonreactive Test 02/12/19 00:23 02/12/19 01:26 02/12/19 02:27 02/12/19 02:30 Glucose (Fingerstick) 296 mg/dL (70-99) 147 mg/dL (70-99) 132 mg/dL (70-99) Troponin I Quantitative 0.153 ng/mL (0.000-0.055) Triglycerides Level 344 mg/dL (0-150) Cholesterol Level 201 mg/dL (0-200) LDL Cholesterol, Calculated 89 mg/dL (0-100) VLDL Cholesterol, Calculated 69 mg/dL (0-40) Non-HDL Cholesterol Calculated 158 mg/dL (0-129) HDL Cholesterol 43 mg/dL (40-60) Cholesterol/HDL Ratio 4.7 Test 02/12/19 02:55 02/12/19 03:42 02/12/19 04:50 02/12/19 05:54 Sodium Level 148 mmol/L (136-145) Potassium Level 4.0 mmol/L (3.5-5.1) Chloride Level 99 mmol/L (98-107) Carbon Dioxide Level 23 mmol/L (21-32) Anion Gap 26 (6-14) Blood Urea Nitrogen 114 mg/dL (8-26) Creatinine 12.6 mg/dL (0.7-1.3) Estimated GFR (Cockcroft-Gault) 4.2 Glucose Level 150 mg/dL (70-99) Lactic Acid Level 5.9 mmol/L (0.4-2.0) Calcium Level 8.9 mg/dL (8.5-10.1) Phosphorus Level 4.6 mg/dL (2.6-4.7) Magnesium Level 2.4 mg/dL (1.8-2.4) Glucose (Fingerstick) 228 mg/dL (70-99) 251 mg/dL (70-99) 211 mg/dL (70-99) Test 02/12/19 06:40 02/12/19 07:11 02/12/19 08:00 02/12/19 08:14 Sodium Level 146 mmol/L (136-145) Potassium Level 3.5 mmol/L (3.5-5.1) Chloride Level 102 mmol/L (98-107) Carbon Dioxide Level 23 mmol/L (21-32) Anion Gap 21 (6-14) Blood Urea Nitrogen 122 mg/dL (8-26) Creatinine 14.3 mg/dL (0.7-1.3) Estimated GFR (Cockcroft-Gault) 3.7 Glucose Level 156 mg/dL (70-99) Lactic Acid Level 2.9 mmol/L (0.4-2.0) Calcium Level 6.8 mg/dL (8.5-10.1) Phosphorus Level 4.5 mg/dL (2.6-4.7) Magnesium Level 1.9 mg/dL (1.8-2.4) Glucose (Fingerstick) 130 mg/dL (70-99) 97 mg/dL (70-99) O2 Saturation 97 % (92-99) Arterial Blood pH 7.46 (7.35-7.45) Arterial Blood pCO2 at Patient Temp 32 mmHg (35-46) Arterial Blood pO2 at Patient Temp 95 mmHg (75-108) Arterial Blood HCO3 22 mmol/L (21-28) Arterial Blood Base Excess -1 mmol/L (-3-3) FiO2 2 lpm nc Test 02/12/19 09:23 Glucose (Fingerstick) 145 mg/dL (70-99) Laboratory Tests Test 8/6/19 19:00 02/11/19 20:20 02/11/19 21:35 02/11/19 21:50 White Blood Count 12.0 x10^3/uL (4.0-11.0) Red Blood Count 4.33 x10^6/uL (4.30-5.70) Hemoglobin 14.2 g/dL (13.0-17.5) Hematocrit 42.9 % (39.0-53.0) Mean Corpuscular Volume 99 fL (79-100) Mean Corpuscular Hemoglobin 33 pg (25-35) Mean Corpuscular Hemoglobin Concent 33 g/dL (31-37) Red Cell Distribution Width 13.9 % (11.5-14.5) Platelet Count 330 x10^3/uL (140-400) Neutrophils (%) (Auto) 91 % (31-73) Lymphocytes (%) (Auto) 2 % (24-48) Monocytes (%) (Auto) 7 % (0-9) Eosinophils (%) (Auto) 0 % (0-3) Basophils (%) (Auto) 0 % (0-3) Neutrophils # (Auto) 10.9 x10^3/uL (1.8-7.7) Lymphocytes # (Auto) 0.2 x10^3/uL (1.0-4.8) Monocytes # (Auto) 0.8 x10^3/uL (0.0-1.1) Eosinophils # (Auto) 0.0 x10^3/uL (0.0-0.7) Basophils # (Auto) 0.0 x10^3/uL (0.0-0.2) Segmented Neutrophils % 84 % (35-66) Band Neutrophils % 4 % (0-9) Lymphocytes % 4 % (24-48) Monocytes % 8 % (0-10) Platelet Estimate Adequate (ADEQUATE) Platelet Clumps, EDTA Present Prothrombin Time 16.1 SEC (11.7-14.0) Prothromb Time International Ratio 1.3 (0.8-1.1) Activated Partial Thromboplast Time 26 SEC (24-38) Sodium Level 141 mmol/L (136-145) Potassium Level 7.0 mmol/L (3.5-5.1) Chloride Level 91 mmol/L (98-107) Carbon Dioxide Level 7 mmol/L (21-32) Anion Gap 43 (6-14) Blood Urea Nitrogen 212 mg/dL (8-26) Creatinine 20.7 mg/dL (0.7-1.3) Estimated GFR (Cockcroft-Gault) 2.4 BUN/Creatinine Ratio 10 (6-20) Glucose Level 737 mg/dL (70-99) 705 mg/dL (70-99) Lactic Acid Level 2.9 mmol/L (0.4-2.0) Calcium Level 7.3 mg/dL (8.5-10.1) Magnesium Level 3.1 mg/dL (1.8-2.4) Total Bilirubin 0.7 mg/dL (0.2-1.0) Aspartate Amino Transf (AST/SGOT) 18 U/L (15-37) Alanine Aminotransferase (ALT/SGPT) 16 U/L (16-63) Alkaline Phosphatase 161 U/L (46-116) Ammonia < 10 mcmol/L (11-34) Creatine Kinase 2033 U/L (39-308) Creatine Kinase MB (Mass) 2.8 ng/mL (0.0-3.6) Creatine Kinase MB Relative Index 0.1 % (0-4) Troponin I Quantitative 0.104 ng/mL (0.000-0.055) Total Protein 8.8 g/dL (6.4-8.2) Albumin 3.2 g/dL (3.4-5.0) Albumin/Globulin Ratio 0.6 (1.0-1.7) Acetone Level Sm pos (NEG) O2 Saturation 93 % (92-99) Arterial Blood pH 7.23 (7.35-7.45) Arterial Blood pCO2 at Patient Temp 21 mmHg (35-46) Arterial Blood pO2 at Patient Temp 84 mmHg (75-108) Arterial Blood HCO3 8 mmol/L (21-28) Arterial Blood Base Excess -17 mmol/L (-3-3) Oxyhemoglobin 92.3 % Methemoglobin 0.6 % (0.0-1.9) Carbon Monoxide, Quantitative 0.2 % (0.0-1.9) FiO2 21 Urine Collection Type Unknown Urine Color Yellow Urine Clarity Clear Urine pH 6.5 Urine Specific [place] 1.020 Urine Protein 100 mg/dL (NEG-TRACE) Urine Glucose (UA) >=1000 mg/dL (NEG) Urine Ketones (Stick) 15 mg/dL (NEG) Urine Blood Large (NEG) Urine Nitrite Negative (NEG) Urine Bilirubin Moderate (NEG) Urine Urobilinogen Dipstick 0.2 mg/dL (0.2 mg/dL) Urine Leukocyte Esterase Small (NEG) Urine RBC 6-10 /HPF (0-2) Urine WBC 11-20 /HPF (0-4) Urine Squamous Epithelial Cells Mod /LPF Urine Bacteria 0 /HPF (0-FEW) Urine Mucus Mod /LPF Urine Opiates Screen Neg (NEG) Urine Methadone Screen Neg (NEG) Urine Barbiturates Neg (NEG) Urine Phencyclidine Screen Neg (NEG) Urine Amphetamine/Methamphetamine Neg (NEG) Urine Benzodiazepines Screen Neg (NEG) Urine Cocaine Screen Neg (NEG) Urine Cannabinoids Screen Neg (NEG) Urine Ethyl Alcohol Neg (NEG) Test 02/11/19 22:09 02/11/19 22:30 02/11/19 23:18 02/11/19 23:45 Glucose (Fingerstick) 560 mg/dL (70-99) 438 mg/dL (70-99) Sodium Level 147 mmol/L (136-145) Potassium Level 4.9 mmol/L (3.5-5.1) Chloride Level 102 mmol/L (98-107) Carbon Dioxide Level 12 mmol/L (21-32) Anion Gap 33 (6-14) Blood Urea Nitrogen 221 mg/dL (8-26) Creatinine 20.0 mg/dL (0.7-1.3) Estimated GFR (Cockcroft-Gault) 2.5 Glucose Level 605 mg/dL (70-99) Lactic Acid Level 2.9 mmol/L (0.4-2.0) Calcium Level 6.9 mg/dL (8.5-10.1) Phosphorus Level 8.5 mg/dL (2.6-4.7) Magnesium Level 2.9 mg/dL (1.8-2.4) Troponin I Quantitative 0.098 ng/mL (0.000-0.055) Hepatitis B Surface Antigen Nonreactive (Nonreactive) Hepatitis B Surface Antibody Nonreactive Test 02/12/19 00:23 02/12/19 01:26 02/12/19 02:27 02/12/19 02:30 Glucose (Fingerstick) 296 mg/dL (70-99) 147 mg/dL (70-99) 132 mg/dL (70-99) Troponin I Quantitative 0.153 ng/mL (0.000-0.055) Triglycerides Level 344 mg/dL (0-150) Cholesterol Level 201 mg/dL (0-200) LDL Cholesterol, Calculated 89 mg/dL (0-100) VLDL Cholesterol, Calculated 69 mg/dL (0-40) Non-HDL Cholesterol Calculated 158 mg/dL (0-129) HDL Cholesterol 43 mg/dL (40-60) Cholesterol/HDL Ratio 4.7 Test 02/12/19 02:55 02/12/19 03:42 02/12/19 04:50 02/12/19 05:54 Sodium Level 148 mmol/L (136-145) Potassium Level 4.0 mmol/L (3.5-5.1) Chloride Level 99 mmol/L (98-107) Carbon Dioxide Level 23 mmol/L (21-32) Anion Gap 26 (6-14) Blood Urea Nitrogen 114 mg/dL (8-26) Creatinine 12.6 mg/dL (0.7-1.3) Estimated GFR (Cockcroft-Gault) 4.2 Glucose Level 150 mg/dL (70-99) Lactic Acid Level 5.9 mmol/L (0.4-2.0) Calcium Level 8.9 mg/dL (8.5-10.1) Phosphorus Level 4.6 mg/dL (2.6-4.7) Magnesium Level 2.4 mg/dL (1.8-2.4) Glucose (Fingerstick) 228 mg/dL (70-99) 251 mg/dL (70-99) 211 mg/dL (70-99) Test 02/12/19 06:40 02/12/19 07:11 02/12/19 08:00 02/12/19 08:14 Sodium Level 146 mmol/L (136-145) Potassium Level 3.5 mmol/L (3.5-5.1) Chloride Level 102 mmol/L (98-107) Carbon Dioxide Level 23 mmol/L (21-32) Anion Gap 21 (6-14) Blood Urea Nitrogen 122 mg/dL (8-26) Creatinine 14.3 mg/dL (0.7-1.3) Estimated GFR (Cockcroft-Gault) 3.7 Glucose Level 156 mg/dL (70-99) Lactic Acid Level 2.9 mmol/L (0.4-2.0) Calcium Level 6.8 mg/dL (8.5-10.1) Phosphorus Level 4.5 mg/dL (2.6-4.7) Magnesium Level 1.9 mg/dL (1.8-2.4) Glucose (Fingerstick) 130 mg/dL (70-99) 97 mg/dL (70-99) O2 Saturation 97 % (92-99) Arterial Blood pH 7.46 (7.35-7.45) Arterial Blood pCO2 at Patient Temp 32 mmHg (35-46) Arterial Blood pO2 at Patient Temp 95 mmHg (75-108) Arterial Blood HCO3 22 mmol/L (21-28) Arterial Blood Base Excess -1 mmol/L (-3-3) FiO2 2 lpm nc Test 02/12/19 09:23 Glucose (Fingerstick) 145 mg/dL (70-99) Images Images CT head without contrast 02/11/2019 7:07 PM INDICATION: Altered mental status COMPARISON: None available TECHNIQUE: Multiple axial CT images of the head were obtained from skull base through the vertex without intravenous contrast. FINDINGS: Head: Ventricles, sulci and basal cisterns are within normal limits. There is no hydrocephalus. Keith-white matter differentiation is normal. There is no acute intracranial hemorrhage. There is no mass, mass effect or midline shift. Posterior fossa is normal in appearance. Visualized portions of the orbits are normal. Paranasal sinuses are well aerated. Mastoid air cells are well aerated. Scalp and calvaria are normal. IMPRESSION: No acute intracranial hemorrhage. Assessment/Plan Assessment/Plan Impression: Seizure related to metabolic encephalopathy. Metabolic encephalopathy with leukocytosis, diabetic ketoacidosis, renal failure, hypocalcemia, rhabdomyolysis. Note transaminases are normal Recommendations: Lorazepam as needed for seizures but only if they last more than 3-5 minutes, I told the nurse. Seizure precautions EEG MRI brain I will also consider lumbar puncture Fully discussed with patient's mother. Think you for letting me help the patient's care. CITLALLI GONZALEZ MD Feb 12, 2019 10:40
--- NOTE | 2019-02-12 10:59 | PDOC2 ---
CARMELLA DERAS MATRIX SUPERVISOR 02/12/19 1059: CARDIAC CONSULT DATE OF CONSULT Date of Consult DATE: 02/12/19 TIME: 10:47 REASON FOR CONSULT Reason for Consult: Elevated troponin REFERRING PHYSICIAN Referring Physician: Dr. Barrientos SOURCE Source: Chart review, Patient HISTORY OF PRESENT ILLNESS HISTORY OF PRESENT ILLNESS This is a 53 yo male who presented secondary to increasing weakness, confusion, and nausea/vomiting. Family reports he was been ill for over a week. Mother reports cough, congestion, and sore throat since last Sunday. Throat has been so sore he has been unable to eat or take his DM medications. Began significantly weak on Sunday and began having intermittent confusion. Had episode of vomiting x1. No chest pain, dizziness, or diaphoresis. Mother report some mild SOA upon arrival. Labs significantly abnormal upon arrival with BUN 212, Cr 20.7, K+ 7, and glucose 737. Troponin noted to be mildly elevated, which prompted this consult. HD was initiated. Had seizure overnight following HD. PAST MEDICAL HISTORY Cardiovascular: Hyperlipidemia Endocrine: Diabetes PAST SURGICAL HISTORY Past Surgical History: No pertinent history FAMILY HISTORY Family History: Diabetes SOCIAL HISTORY Smoke: No ALCOHOL: none Drugs: None Lives: with Family Domestic Violence: Neg CURRENT MEDICATIONS CURRENT MEDICATIONS Current Medications Medications (Trade) Dose Ordered Sig/Ismael Route PRN Reason Start Time Stop Time Status Last Admin Dose Admin Sodium Chloride 1,000 ml @ 1,000 mls/hr 1X ONCE IV 02/11/19 19:15 02/11/19 20:14 DC 02/11/19 19:19 Sodium Chloride 1,000 ml @ 1,000 mls/hr 1X ONCE IV 02/11/19 20:00 02/11/19 20:59 DC 02/11/19 20:21 Insulin Human Regular (HumuLIN R VIAL) 9 unit 1X ONCE SQ 02/11/19 20:00 02/11/19 20:01 DC 02/11/19 20:21 Aspirin (Aspirin Rectal Supp) 300 mg 1X ONCE UT 02/11/19 20:00 02/11/19 20:03 DC 02/11/19 20:21 Insulin Human Regular 150 ml @ 0 mls/hr CONT PRN PRN IV PER PROTOCOL 02/11/19 20:15 02/11/19 23:00 DC 02/11/19 20:21 Calcium Gluconate (Calcium Gluconate) 1,000 mg 1X ONCE IVP 02/11/19 21:00 02/11/19 21:01 DC 02/11/19 21:29 Sodium Chloride 1,000 ml @ 500 mls/hr 1X ONCE IV 02/11/19 21:30 02/11/19 23:29 DC 02/11/19 21:29 Lidocaine/Sodium Bicarbonate (Buffered Lidocaine 1%) 3 ml 1X ONCE IJ 02/11/19 23:00 02/11/19 23:01 DC 02/11/19 23:10 Sodium Chloride 1,000 ml @ 250 mls/hr Q4H IV 02/12/19 00:14 02/12/19 01:32 DC 02/12/19 00:20 Piperacillin Sod/ Tazobactam Sod 2.25 gm/Sodium Chloride 50 ml @ 100 mls/hr Q8HRS IV 02/12/19 01:00 02/12/19 06:48 Dextrose/Sodium Chloride 1,000 ml @ 250 mls/hr Q4H IV 02/12/19 01:32 02/12/19 06:28 Sodium Chloride 250 ml @ 250 mls/hr 1X ONCE IV 02/12/19 05:00 02/12/19 05:59 DC 02/12/19 05:25 Azithromycin 500 mg/Sodium Chloride 250 ml @ 250 mls/hr 1X ONCE IV 02/12/19 05:00 02/12/19 05:59 DC 02/12/19 05:25 Potassium Chloride/Water 50 ml @ 25 mls/hr Q2H IV 02/12/19 08:00 02/12/19 11:59 02/12/19 10:06 ALLERGIES ALLERGIES: Coded Allergies: No Known Drug Allergies (Unverified , 02/11/19) ROS Review of System 14 point ROS conducted with pertinent positives noted above in HPI. PHYSICAL EXAM General: Alert, No acute distress, Other (non-verbal ) HEENT: Mucous membr. moist/pink Lungs: Other (rales) Heart: Regular rate, Other (distant heart tones) Abdomen: Soft, No tenderness Extremities: No edema, Normal pulses Skin: No breakdown, No significant lesion Neuro: Sensation intact, Other (non-verbal ) Psych/Mental Status: Other (unable to assess ) MUSCULOSKELETAL: No deformity VITALS/I&O VITALS/I&O: Vital Signs Date Time Temp Pulse Resp B/P (MAP) Pulse Ox O2 Delivery O2 Flow Rate FiO2 02/12/19 09:00 94 23 139/72 (94) 96 Nasal Cannula 3.0 02/12/19 08:00 97.7 97.7 I & O 02/11/19 02/11/19 02/12/19 14:59 22:59 06:59 Intake Total 2878 ml Output Total 100 ml 140 ml Balance -100 ml 2738 ml LABS Lab: Laboratory Tests Test 02/11/19 19:00 02/11/19 20:20 02/11/19 21:35 02/11/19 21:50 White Blood Count 12.0 x10^3/uL (4.0-11.0) H Red Blood Count 4.33 x10^6/uL (4.30-5.70) Hemoglobin 14.2 g/dL (13.0-17.5) Hematocrit 42.9 % (39.0-53.0) Mean Corpuscular Volume 99 fL (79-100) Mean Corpuscular Hemoglobin 33 pg (25-35) Mean Corpuscular Hemoglobin Concent 33 g/dL (31-37) Red Cell Distribution Width 13.9 % (11.5-14.5) Platelet Count 330 x10^3/uL (140-400) Neutrophils (%) (Auto) 91 % (31-73) H Lymphocytes (%) (Auto) 2 % (24-48) L Monocytes (%) (Auto) 7 % (0-9) Eosinophils (%) (Auto) 0 % (0-3) Basophils (%) (Auto) 0 % (0-3) Neutrophils # (Auto) 10.9 x10^3/uL (1.8-7.7) H Lymphocytes # (Auto) 0.2 x10^3/uL (1.0-4.8) L Monocytes # (Auto) 0.8 x10^3/uL (0.0-1.1) Eosinophils # (Auto) 0.0 x10^3/uL (0.0-0.7) Basophils # (Auto) 0.0 x10^3/uL (0.0-0.2) Segmented Neutrophils % 84 % (35-66) H Band Neutrophils % 4 % (0-9) Lymphocytes % 4 % (24-48) L Monocytes % 8 % (0-10) Platelet Estimate Adequate (ADEQUATE) Platelet Clumps, EDTA Present Prothrombin Time 16.1 SEC (11.7-14.0) H Prothrombin Time INR 1.3 (0.8-1.1) H Activated Partial Thromboplast Time 26 SEC (24-38) Sodium Level 141 mmol/L (136-145) Potassium Level 7.0 mmol/L (3.5-5.1) *H Chloride Level 91 mmol/L (98-107) L Carbon Dioxide Level 7 mmol/L (21-32) *L Anion Gap 43 (6-14) H Blood Urea Nitrogen 212 mg/dL (8-26) H Creatinine 20.7 mg/dL (0.7-1.3) H Estimated GFR (Cockcroft-Gault) 2.4 BUN/Creatinine Ratio 10 (6-20) Glucose Level 737 mg/dL (70-99) *H 705 mg/dL (70-99) *H Lactic Acid Level 2.9 mmol/L (0.4-2.0) H Calcium Level 7.3 mg/dL (8.5-10.1) L Magnesium Level 3.1 mg/dL (1.8-2.4) H Total Bilirubin 0.7 mg/dL (0.2-1.0) Aspartate Amino Transferase (AST) 18 U/L (15-37) Alanine Aminotransferase (ALT) 16 U/L (16-63) Alkaline Phosphatase 161 U/L (46-116) H Ammonia < 10 mcmol/L (11-34) L Creatine Kinase 2033 U/L (39-308) H Creatine Kinase MB (Mass) 2.8 ng/mL (0.0-3.6) Creatine Kinase MB Relative Index 0.1 % (0-4) Troponin I Quantitative 0.104 ng/mL (0.000-0.055) Total Protein 8.8 g/dL (6.4-8.2) H Albumin 3.2 g/dL (3.4-5.0) L Albumin/Globulin Ratio 0.6 (1.0-1.7) L Acetone Level Sm pos (NEG) O2 Saturation 93 % (92-99) Arterial Blood pH 7.23 (7.35-7.45) L Arterial Blood pCO2 at Patient Temp 21 mmHg (35-46) L Arterial Blood pO2 at Patient Temp 84 mmHg (75-108) Arterial Blood HCO3 8 mmol/L (21-28) L Arterial Blood Base Excess -17 mmol/L (-3-3) L Oxyhemoglobin 92.3 % Methemoglobin 0.6 % (0.0-1.9) Carbon Monoxide, Quantitative 0.2 % (0.0-1.9) FiO2 21 Urine Collection Type Unknown Urine Color Yellow Urine Clarity Clear Urine pH 6.5 Urine Specific [place] 1.020 Urine Protein 100 mg/dL (NEG-TRACE) Urine Glucose (UA) >=1000 mg/dL (NEG) Urine Ketones (Stick) 15 mg/dL (NEG) Urine Blood Large (NEG) Urine Nitrite Negative (NEG) Urine Bilirubin Moderate (NEG) Urine Urobilinogen Dipstick 0.2 mg/dL (0.2 mg/dL) Urine Leukocyte Esterase Small (NEG) Urine RBC 6-10 /HPF (0-2) Urine WBC 11-20 /HPF (0-4) Urine Squamous Epithelial Cells Mod /LPF Urine Bacteria 0 /HPF (0-FEW) Urine Mucus Mod /LPF Urine Opiates Screen Neg (NEG) Urine Methadone Screen Neg (NEG) Urine Barbiturates Neg (NEG) Urine Phencyclidine Screen Neg (NEG) Urine Amphetamine/Methamphetamine Neg (NEG) Urine Benzodiazepines Screen Neg (NEG) Urine Cocaine Screen Neg (NEG) Urine Cannabinoids Screen Neg (NEG) Urine Ethyl Alcohol Neg (NEG) Test 02/11/19 22:09 02/11/19 22:30 02/11/19 23:18 02/11/19 23:45 Glucose (Fingerstick) 560 mg/dL (70-99) *H 438 mg/dL (70-99) H Sodium Level 147 mmol/L (136-145) H Potassium Level 4.9 mmol/L (3.5-5.1) # Chloride Level 102 mmol/L (98-107) Carbon Dioxide Level 12 mmol/L (21-32) L Anion Gap 33 (6-14) H Blood Urea Nitrogen 221 mg/dL (8-26) H Creatinine 20.0 mg/dL (0.7-1.3) H Estimated GFR (Cockcroft-Gault) 2.5 Glucose Level 605 mg/dL (70-99) *H Lactic Acid Level 2.9 mmol/L (0.4-2.0) H Calcium Level 6.9 mg/dL (8.5-10.1) L Phosphorus Level 8.5 mg/dL (2.6-4.7) H Magnesium Level 2.9 mg/dL (1.8-2.4) H Troponin I Quantitative 0.098 ng/mL (0.000-0.055) Hepatitis B Surface Antigen Nonreactive (Nonreactive) Hepatitis B Surface Antibody Nonreactive Test 02/12/19 00:23 02/12/19 01:26 02/12/19 02:27 02/12/19 02:30 Glucose (Fingerstick) 296 mg/dL (70-99) H 147 mg/dL (70-99) H 132 mg/dL (70-99) H Troponin I Quantitative 0.153 ng/mL (0.000-0.055) Triglycerides Level 344 mg/dL (0-150) H Cholesterol Level 201 mg/dL (0-200) H LDL Cholesterol, Calculated 89 mg/dL (0-100) VLDL Cholesterol, Calculated 69 mg/dL (0-40) H Non-HDL Cholesterol Calculated 158 mg/dL (0-129) H HDL Cholesterol 43 mg/dL (40-60) Cholesterol/HDL Ratio 4.7 Test 02/12/19 02:55 02/12/19 03:42 02/12/19 04:50 02/12/19 05:54 Sodium Level 148 mmol/L (136-145) H Potassium Level 4.0 mmol/L (3.5-5.1) Chloride Level 99 mmol/L (98-107) Carbon Dioxide Level 23 mmol/L (21-32) Anion Gap 26 (6-14) H Blood Urea Nitrogen 114 mg/dL (8-26) H Creatinine 12.6 mg/dL (0.7-1.3) H Estimated GFR (Cockcroft-Gault) 4.2 Glucose Level 150 mg/dL (70-99) H Lactic Acid Level 5.9 mmol/L (0.4-2.0) *H Calcium Level 8.9 mg/dL (8.5-10.1) # Phosphorus Level 4.6 mg/dL (2.6-4.7) Magnesium Level 2.4 mg/dL (1.8-2.4) Glucose (Fingerstick) 228 mg/dL (70-99) H 251 mg/dL (70-99) H 211 mg/dL (70-99) H Test 02/12/19 06:40 02/12/19 07:11 02/12/19 08:00 02/12/19 08:14 Sodium Level 146 mmol/L (136-145) H Potassium Level 3.5 mmol/L (3.5-5.1) Chloride Level 102 mmol/L (98-107) Carbon Dioxide Level 23 mmol/L (21-32) Anion Gap 21 (6-14) H Blood Urea Nitrogen 122 mg/dL (8-26) H Creatinine 14.3 mg/dL (0.7-1.3) H Estimated GFR (Cockcroft-Gault) 3.7 Glucose Level 156 mg/dL (70-99) H Lactic Acid Level 2.9 mmol/L (0.4-2.0) H Calcium Level 6.8 mg/dL (8.5-10.1) #L Phosphorus Level 4.5 mg/dL (2.6-4.7) Magnesium Level 1.9 mg/dL (1.8-2.4) Glucose (Fingerstick) 130 mg/dL (70-99) H 97 mg/dL (70-99) O2 Saturation 97 % (92-99) Arterial Blood pH 7.46 (7.35-7.45) H Arterial Blood pCO2 at Patient Temp 32 mmHg (35-46) L Arterial Blood pO2 at Patient Temp 95 mmHg (75-108) Arterial Blood HCO3 22 mmol/L (21-28) Arterial Blood Base Excess -1 mmol/L (-3-3) FiO2 2 lpm nc Test 02/12/19 09:23 02/12/19 10:36 Glucose (Fingerstick) 145 mg/dL (70-99) H 173 mg/dL (70-99) H Laboratory Tests 02/11/19 19:00 Laboratory Tests 02/11/19 19:00 02/11/19 21:35 02/11/19 22:30 02/12/19 02:55 02/12/19 06:40 ASSESSMENT/PLAN ASSESSMENT/PLAN 1. SARAH with hyperkalemia; requiring HD 2. Diabetes II, DKA; as per PCP 3. Mild troponin elevation; highest 0.153. Most probably type II, demand ischemia, multifactorial 4. Metabolic encephalopathy 5. Seizure following HD; now non-verba 6. Leukocytosis, lactic acidosis 7. Hyperlipidemia 8. Hypomagnesemia Recommendations ASA Echo to assess LV systolic function Supportive care from a CV standpoint. CHANNING CERDA MD 02/12/19 9845: CARDIAC CONSULT ASSESSMENT/PLAN ASSESSMENT/PLAN Pt. seen and examined. Agree with above SUPERVISOR [employer] note. New onset DM and ESRD w/ seizure. Trop likely due to above No acute cardiac issues. Supportive care. Will follow along peripherally. CARMELLA DERAS APRN Feb 12, 2019 10:59 CHANNING CERDA MD Feb 12, 2019 18:45
[2019-02-12 11:06] LABS: CALCIUM 6.7 mg/dL (8.5-10.1); CREATININE 14.4 mg/dL (0.7-1.3); GFR 3.6; MAGNESIUM 1.7 mg/dL (1.8-2.4); PHOSPHORUS 4.7 mg/dL (2.6-4.7)
--- NOTE | 2019-02-12 11:26 | CONS ---
DATE OF CONSULTATION: HISTORY OF PRESENT ILLNESS: Following dialysis, he had a witnessed seizure. Neurology has been consulted and a MRI has been ordered. The patient's WBC count was 12,000. Lactic acid 2.9 from 5.9. Urinalysis unremarkable for infection. Blood cultures have been ordered. He is requiring supplemental oxygen. A recent chest x-ray showed interstitial and ground glass opacities bilaterally. He received a one-time dose of azithromycin and is currently on Zosyn. PAST MEDICAL HISTORY: Ten-year history of diabetes type 2. PAST SURGICAL HISTORY: No significant past surgical history. FAMILY HISTORY: Positive for malignant lymphoma, prostate cancer and diabetes. SOCIAL HISTORY: The patient lives with his aunt. 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 He is a nonsmoker. No history of alcohol or drug abuse. ALLERGIES: No known drug allergies. MEDICATIONS: Zosyn. One-time dose of azithromycin. Other medications are available and have been reviewed on the SEP. REVIEW OF SYSTEMS: Unobtainable as the patient is encephalopathic and noncommunicative. PHYSICAL EXAMINATION: VITAL SIGNS: Temperature is 97.7, blood pressure 139/72, heart rate 94, respiratory rate 23, pulse oximetry is 96% on 3 liters oxygen, BMI 24.5. GENERAL: The patient is propped up in bed. His eyes are open, but unresponsive to verbal. HEENT: Pupils equally round. Resists oral exam. NECK: Supple. LUNGS: Upper airway congestion. Nonlabored. HEART: S1 and S2. ABDOMEN: Nondistended, soft, no guarding. Bowel sounds present. GENITOURINARY: Indwelling [place] in place. EXTREMITIES: No gross edema or cyanosis. SKIN: Warm to touch without signs of rash. NEUROLOGIC: His eyes are open. He does not respond to questions or follow commands. LINES: RIJ/HDC (8-6) without signs of any complications. He also has a peripheral IV. LABORATORY SILVERIO: From 02/11; WBC 12.0, hemoglobin 14.2, platelets 330,000, segs 84% and bands 4%. Sodium 146, potassium 3.5, creatinine 14.3, BUN 122, glucose 156. Lactic acid 2.9. Troponin 0.153. Total bilirubin 0.7, AST 18, ALT 16. Ammonia less than 10. Urine toxicology negative. Urinalysis showed wbc's 11 to 20, small leukocyte esterase, blood, moderate squamous epithelial cells and no bacteria. Head CT showed no acute intracranial hemorrhage. MRI brain pending. Chest x-ray per HPI. Carbon dioxide on admission 7. IMPRESSION: 1. Aspiration. 2. Leukocytosis. 3. Acute encephalopathy. 4. Acute kidney injury requiring hemodialysis. 5. Diabetic ketoacidosis. 6. Seizure. PLAN: 1. Continue the Zosyn at renal dose. We will follow up on culture results. Continue to monitor laboratory values. Maintain aspiration precautions. Discussed with mother at bedside. 2. Critically ill. Thank you, Dr. Howard, for asking us to participate in the patient's care. Should you have further questions or concerns, please call. NEAL MIRANDA MD DR: MILAGROS/nts JOB#: [id number] / [id number]
--- NOTE | 2019-02-12 11:36 | PDOC2 ---
CONSULT Date of Consult Date of Consult DATE: 02/12/19 TIME: 11:13 Reason for Consult Reason for Consult: SARAH , Hyperkalemia Source Source: Chart review History of Present Illness Reason for Visit: 53-year-old C male brought to ER by his family with report of being "ill �1 week ". He was unable to keep any medication or fluid down. Pts mom reports he has felt so weak that he has been unable to ambulate over the last 2 days. Family was concerned as patient intermittently is confused. Per his mother he was in a normal state of health ,on Sunday he developed sore throat and unable to take his metformin. He had some chills , No fever. denies NSAID's use except very rarely would take Advil Didn't have any urinary complaints- No dysuria, hematuria . No OTC health supplements, No Rec drug use. No N/V/D . No abdominal pain . Per hx from ER provider, he was non complaint with metformin He has a few sec Sz last night at the end of HD Past Medical History Endocrine: Diabetes Past Surgical History Past Surgical History: No pertinent history Current Problem List Problem List Problems Medical Problems: (1) DKA (diabetic ketoacidoses) Status: Acute (2) Elevated troponin Status: Acute (3) Renal failure Status: Acute Current Medications Current Medications Current Medications Sodium Chloride 1,000 ml @ 1,000 mls/hr 1X ONCE IV Last administered on 02/11/19at 19:19; Start 02/11/19 at 19:15; Stop 02/11/19 at 20:14; Status DC Sodium Chloride 1,000 ml @ 1,000 mls/hr 1X ONCE IV Last administered on 02/11/19at 20:21; Start 02/11/19 at 20:00; Stop 02/11/19 at 20:59; Status DC Insulin Human Regular (HumuLIN R VIAL) 9 unit 1X ONCE SQ Last administered on 02/11/19at 20:21; Start 02/11/19 at 20:00; Stop 02/11/19 at 20:01; Status DC Insulin Human Regular 150 unit/ Sodium Chloride 151.5 ml @ 0 mls/hr CONT PRN PRN IV PER PROTOCOL; Start 02/11/19 at 20:00 Potassium Chloride/Water 100 ml @ 100 mls/hr PRN Q1HR PRN IV SEE COMMENTS; Start 02/11/19 at 20:00 Potassium Chloride/Water 100 ml @ 100 mls/hr PRN Q1HR PRN IV SEE COMMENTS; Start 02/11/19 at 20:00 Potassium Chloride/Water 100 ml @ 100 mls/hr PRN Q1HR PRN IV SEE COMMENTS; Start 02/11/19 at 20:00 Magnesium Sulfate/ Dextrose 100 ml @ 25 mls/hr PRN DAILY PRN IV SEE COMMENTS; Start 02/12/19 at 09:00 Aspirin (Aspirin Rectal Supp) 300 mg 1X ONCE MN Last administered on 02/11/19at 20:21; Start 02/11/19 at 20:00; Stop 02/11/19 at 20:03; Status DC Insulin Human Regular 150 ml @ 0 mls/hr CONT PRN PRN IV PER PROTOCOL Last administered on 02/11/19at 20:21; Start 02/11/19 at 20:15; Stop 02/11/19 at 23:00; Status DC Ondansetron HCl (Zofran) 4 mg PRN Q8HRS PRN IV NAUSEA/VOMITING; Start 02/11/19 at 20:30; Stop 02/12/19 at 20:29 Calcium Gluconate (Calcium Gluconate) 1,000 mg 1X ONCE IVP Last administered on 02/11/19at 21:29; Start 02/11/19 at 21:00; Stop 02/11/19 at 21:01; Status DC Sodium Chloride 1,000 ml @ 500 mls/hr 1X ONCE IV Last administered on 02/11/19at 21:29; Start 02/11/19 at 21:30; Stop 02/11/19 at 23:29; Status DC Lidocaine/Sodium Bicarbonate (Buffered Lidocaine 1%) 3 ml STK-MED ONCE .ROUTE ; Start 02/11/19 at 22:37; Stop 02/11/19 at 22:37; Status DC Lidocaine/Sodium Bicarbonate (Buffered Lidocaine 1%) 3 ml 1X ONCE IJ Last administered on 02/11/19at 23:10; Start 02/11/19 at 23:00; Stop 02/11/19 at 23:01; Status DC Sodium Chloride 1,000 ml @ 1,000 mls/hr Q1H PRN IV hypotension; Start 02/11/19 at 23:23; Stop 02/12/19 at 05:22; Status DC Sodium Chloride 1,000 ml @ 400 mls/hr Q2H30M PRN IV PATENCY; Start 02/11/19 at 23:23; Stop 02/12/19 at 11:22 Info (PHARMACY MONITORING -- do not chart) 1 each PRN DAILY PRN MC SEE COMMENTS; Start 02/11/19 at 23:30; Status UNV Info (PHARMACY MONITORING -- do not chart) 1 each PRN DAILY PRN MC SEE COMMENTS; Start 02/11/19 at 23:30 Sodium Chloride 1,000 ml @ 250 mls/hr Q4H IV Last administered on 02/12/19at 00:20; Start 02/12/19 at 00:14; Stop 02/12/19 at 01:32; Status DC Piperacillin Sod/ Tazobactam Sod 3.375 gm/Sodium Chloride 50 ml @ 100 mls/hr Q6HRS IV ; Start 02/12/19 at 01:00; Status UNV Piperacillin Sod/ Tazobactam Sod 2.25 gm/Sodium Chloride 50 ml @ 100 mls/hr Q8HRS IV Last administered on 02/12/19at 06:48; Start 02/12/19 at 01:00 Dextrose/Sodium Chloride 1,000 ml @ 250 mls/hr Q4H IV Last administered on 02/12/19at 06:28; Start 02/12/19 at 01:32 Lorazepam (Ativan Inj) 1 mg PRN Q10MIN PRN IV SEIZURE; Start 02/12/19 at 03:00 Sodium Chloride 250 ml @ 250 mls/hr 1X ONCE IV Last administered on 02/12/19at 05:25; Start 02/12/19 at 05:00; Stop 02/12/19 at 05:59; Status DC Azithromycin 500 mg/Sodium Chloride 250 ml @ 250 mls/hr 1X ONCE IV Last administered on 02/12/19at 05:25; Start 02/12/19 at 05:00; Stop 02/12/19 at 05:59; Status DC Potassium Chloride/Water 50 ml @ 25 mls/hr Q2H IV Last administered on 02/12/19at 10:06; Start 02/12/19 at 08:00; Stop 02/12/19 at 11:59 Active Scripts Active Reported Metformin Hcl 500 Mg Tablet 500 Mg PO BIDWMEALS Allergies Allergies: Coded Allergies: No Known Drug Allergies (Unverified , 02/11/19) ROS Review of System Unable to Obtain from Pt Physical Exam Physical Exam GEN: NAD HEEN OM moist, o2 by NC NECK: Supple CVS: No Rub RESP: CTA, No Acc. Muscle Use GI: BS + ve, NO Bruit, Non Tender, Non Distended : No CVA tenderness, No Suprapubic Tenderness, [place] + Neuro - Non verbal Skin No rash Vital Signs Vital Signs Date Time Temp Pulse Resp B/P (MAP) Pulse Ox O2 Delivery O2 Flow Rate FiO2 02/12/19 09:00 94 23 139/72 (94) 96 Nasal Cannula 3.0 02/12/19 08:00 97.7 97.7 Assessment & Plan SARAH - ATN , DKA BUN/CR at presentation 200/20 , CK mildly elevated , follow trend Emergent short HD last night to avoid Dysequilibrium syndrome Renal US, Dialyses today Hyperkalemia- 2/2 DKA, SARAH Resolved Metabolic acidosis- 2/2 dka Improved Hypernatremia- Mild DKA- On DKA protocol Per primary Discussed A/P with family and RN at bedside Labs Labs Laboratory Tests Test 02/11/19 19:00 02/11/19 20:20 02/11/19 21:35 02/11/19 21:50 White Blood Count 12.0 x10^3/uL (4.0-11.0) Red Blood Count 4.33 x10^6/uL (4.30-5.70) Hemoglobin 14.2 g/dL (13.0-17.5) Hematocrit 42.9 % (39.0-53.0) Mean Corpuscular Volume 99 fL (79-100) Mean Corpuscular Hemoglobin 33 pg (25-35) Mean Corpuscular Hemoglobin Concent 33 g/dL (31-37) Red Cell Distribution Width 13.9 % (11.5-14.5) Platelet Count 330 x10^3/uL (140-400) Neutrophils (%) (Auto) 91 % (31-73) Lymphocytes (%) (Auto) 2 % (24-48) Monocytes (%) (Auto) 7 % (0-9) Eosinophils (%) (Auto) 0 % (0-3) Basophils (%) (Auto) 0 % (0-3) Neutrophils # (Auto) 10.9 x10^3/uL (1.8-7.7) Lymphocytes # (Auto) 0.2 x10^3/uL (1.0-4.8) Monocytes # (Auto) 0.8 x10^3/uL (0.0-1.1) Eosinophils # (Auto) 0.0 x10^3/uL (0.0-0.7) Basophils # (Auto) 0.0 x10^3/uL (0.0-0.2) Segmented Neutrophils % 84 % (35-66) Band Neutrophils % 4 % (0-9) Lymphocytes % 4 % (24-48) Monocytes % 8 % (0-10) Platelet Estimate Adequate (ADEQUATE) Platelet Clumps, EDTA Present Prothrombin Time 16.1 SEC (11.7-14.0) Prothromb Time International Ratio 1.3 (0.8-1.1) Activated Partial Thromboplast Time 26 SEC (24-38) Sodium Level 141 mmol/L (136-145) Potassium Level 7.0 mmol/L (3.5-5.1) Chloride Level 91 mmol/L (98-107) Carbon Dioxide Level 7 mmol/L (21-32) Anion Gap 43 (6-14) Blood Urea Nitrogen 212 mg/dL (8-26) Creatinine 20.7 mg/dL (0.7-1.3) Estimated GFR (Cockcroft-Gault) 2.4 BUN/Creatinine Ratio 10 (6-20) Glucose Level 737 mg/dL (70-99) 705 mg/dL (70-99) Lactic Acid Level 2.9 mmol/L (0.4-2.0) Calcium Level 7.3 mg/dL (8.5-10.1) Magnesium Level 3.1 mg/dL (1.8-2.4) Total Bilirubin 0.7 mg/dL (0.2-1.0) Aspartate Amino Transf (AST/SGOT) 18 U/L (15-37) Alanine Aminotransferase (ALT/SGPT) 16 U/L (16-63) Alkaline Phosphatase 161 U/L (46-116) Ammonia < 10 mcmol/L (11-34) Creatine Kinase 2033 U/L (39-308) Creatine Kinase MB (Mass) 2.8 ng/mL (0.0-3.6) Creatine Kinase MB Relative Index 0.1 % (0-4) Troponin I Quantitative 0.104 ng/mL (0.000-0.055) Total Protein 8.8 g/dL (6.4-8.2) Albumin 3.2 g/dL (3.4-5.0) Albumin/Globulin Ratio 0.6 (1.0-1.7) Acetone Level Sm pos (NEG) O2 Saturation 93 % (92-99) Arterial Blood pH 7.23 (7.35-7.45) Arterial Blood pCO2 at Patient Temp 21 mmHg (35-46) Arterial Blood pO2 at Patient Temp 84 mmHg (75-108) Arterial Blood HCO3 8 mmol/L (21-28) Arterial Blood Base Excess -17 mmol/L (-3-3) Oxyhemoglobin 92.3 % Methemoglobin 0.6 % (0.0-1.9) Carbon Monoxide, Quantitative 0.2 % (0.0-1.9) FiO2 21 Urine Collection Type Unknown Urine Color Yellow Urine Clarity Clear Urine pH 6.5 Urine Specific Royal 1.020 Urine Protein 100 mg/dL (NEG-TRACE) Urine Glucose (UA) >=1000 mg/dL (NEG) Urine Ketones (Stick) 15 mg/dL (NEG) Urine Blood Large (NEG) Urine Nitrite Negative (NEG) Urine Bilirubin Moderate (NEG) Urine Urobilinogen Dipstick 0.2 mg/dL (0.2 mg/dL) Urine Leukocyte Esterase Small (NEG) Urine RBC 6-10 /HPF (0-2) Urine WBC 11-20 /HPF (0-4) Urine Squamous Epithelial Cells Mod /LPF Urine Bacteria 0 /HPF (0-FEW) Urine Mucus Mod /LPF Urine Opiates Screen Neg (NEG) Urine Methadone Screen Neg (NEG) Urine Barbiturates Neg (NEG) Urine Phencyclidine Screen Neg (NEG) Urine Amphetamine/Methamphetamine Neg (NEG) Urine Benzodiazepines Screen Neg (NEG) Urine Cocaine Screen Neg (NEG) Urine Cannabinoids Screen Neg (NEG) Urine Ethyl Alcohol Neg (NEG) Test 02/11/19 22:09 02/11/19 22:30 02/11/19 23:18 02/11/19 23:45 Glucose (Fingerstick) 560 mg/dL (70-99) 438 mg/dL (70-99) Sodium Level 147 mmol/L (136-145) Potassium Level 4.9 mmol/L (3.5-5.1) Chloride Level 102 mmol/L (98-107) Carbon Dioxide Level 12 mmol/L (21-32) Anion Gap 33 (6-14) Blood Urea Nitrogen 221 mg/dL (8-26) Creatinine 20.0 mg/dL (0.7-1.3) Estimated GFR (Cockcroft-Gault) 2.5 Glucose Level 605 mg/dL (70-99) Lactic Acid Level 2.9 mmol/L (0.4-2.0) Calcium Level 6.9 mg/dL (8.5-10.1) Phosphorus Level 8.5 mg/dL (2.6-4.7) Magnesium Level 2.9 mg/dL (1.8-2.4) Troponin I Quantitative 0.098 ng/mL (0.000-0.055) Hepatitis B Surface Antigen Nonreactive (Nonreactive) Hepatitis B Surface Antibody Nonreactive Test 02/12/19 00:23 02/12/19 01:26 02/12/19 02:27 02/12/19 02:30 Glucose (Fingerstick) 296 mg/dL (70-99) 147 mg/dL (70-99) 132 mg/dL (70-99) Troponin I Quantitative 0.153 ng/mL (0.000-0.055) Triglycerides Level 344 mg/dL (0-150) Cholesterol Level 201 mg/dL (0-200) LDL Cholesterol, Calculated 89 mg/dL (0-100) VLDL Cholesterol, Calculated 69 mg/dL (0-40) Non-HDL Cholesterol Calculated 158 mg/dL (0-129) HDL Cholesterol 43 mg/dL (40-60) Cholesterol/HDL Ratio 4.7 Test 02/12/19 02:55 02/12/19 03:42 02/12/19 04:50 02/12/19 05:54 Sodium Level 148 mmol/L (136-145) Potassium Level 4.0 mmol/L (3.5-5.1) Chloride Level 99 mmol/L (98-107) Carbon Dioxide Level 23 mmol/L (21-32) Anion Gap 26 (6-14) Blood Urea Nitrogen 114 mg/dL (8-26) Creatinine 12.6 mg/dL (0.7-1.3) Estimated GFR (Cockcroft-Gault) 4.2 Glucose Level 150 mg/dL (70-99) Lactic Acid Level 5.9 mmol/L (0.4-2.0) Calcium Level 8.9 mg/dL (8.5-10.1) Phosphorus Level 4.6 mg/dL (2.6-4.7) Magnesium Level 2.4 mg/dL (1.8-2.4) Glucose (Fingerstick) 228 mg/dL (70-99) 251 mg/dL (70-99) 211 mg/dL (70-99) Test 02/12/19 06:40 02/12/19 07:11 02/12/19 08:00 02/12/19 08:14 Sodium Level 146 mmol/L (136-145) Potassium Level 3.5 mmol/L (3.5-5.1) Chloride Level 102 mmol/L (98-107) Carbon Dioxide Level 23 mmol/L (21-32) Anion Gap 21 (6-14) Blood Urea Nitrogen 122 mg/dL (8-26) Creatinine 14.3 mg/dL (0.7-1.3) Estimated GFR (Cockcroft-Gault) 3.7 Glucose Level 156 mg/dL (70-99) Lactic Acid Level 2.9 mmol/L (0.4-2.0) Calcium Level 6.8 mg/dL (8.5-10.1) Phosphorus Level 4.5 mg/dL (2.6-4.7) Magnesium Level 1.9 mg/dL (1.8-2.4) Glucose (Fingerstick) 130 mg/dL (70-99) 97 mg/dL (70-99) O2 Saturation 97 % (92-99) Arterial Blood pH 7.46 (7.35-7.45) Arterial Blood pCO2 at Patient Temp 32 mmHg (35-46) Arterial Blood pO2 at Patient Temp 95 mmHg (75-108) Arterial Blood HCO3 22 mmol/L (21-28) Arterial Blood Base Excess -1 mmol/L (-3-3) FiO2 2 lpm nc Test 02/12/19 09:23 02/12/19 10:36 02/12/19 10:40 Glucose (Fingerstick) 145 mg/dL (70-99) 173 mg/dL (70-99) Sodium Level 145 mmol/L (136-145) Potassium Level 4.0 mmol/L (3.5-5.1) Chloride Level 104 mmol/L (98-107) Carbon Dioxide Level 23 mmol/L (21-32) Anion Gap 18 (6-14) Blood Urea Nitrogen 120 mg/dL (8-26) Creatinine 14.4 mg/dL (0.7-1.3) Estimated GFR (Cockcroft-Gault) 3.6 Glucose Level 174 mg/dL (70-99) Calcium Level 6.7 mg/dL (8.5-10.1) Phosphorus Level 4.7 mg/dL (2.6-4.7) Magnesium Level 1.7 mg/dL (1.8-2.4) Laboratory Tests Test 02/11/19 19:00 02/11/19 20:20 02/11/19 21:35 02/11/19 21:50 White Blood Count 12.0 x10^3/uL (4.0-11.0) Red Blood Count 4.33 x10^6/uL (4.30-5.70) Hemoglobin 14.2 g/dL (13.0-17.5) Hematocrit 42.9 % (39.0-53.0) Mean Corpuscular Volume 99 fL (79-100) Mean Corpuscular Hemoglobin 33 pg (25-35) Mean Corpuscular Hemoglobin Concent 33 g/dL (31-37) Red Cell Distribution Width 13.9 % (11.5-14.5) Platelet Count 330 x10^3/uL (140-400) Neutrophils (%) (Auto) 91 % (31-73) Lymphocytes (%) (Auto) 2 % (24-48) Monocytes (%) (Auto) 7 % (0-9) Eosinophils (%) (Auto) 0 % (0-3) Basophils (%) (Auto) 0 % (0-3) Neutrophils # (Auto) 10.9 x10^3/uL (1.8-7.7) Lymphocytes # (Auto) 0.2 x10^3/uL (1.0-4.8) Monocytes # (Auto) 0.8 x10^3/uL (0.0-1.1) Eosinophils # (Auto) 0.0 x10^3/uL (0.0-0.7) Basophils # (Auto) 0.0 x10^3/uL (0.0-0.2) Segmented Neutrophils % 84 % (35-66) Band Neutrophils % 4 % (0-9) Lymphocytes % 4 % (24-48) Monocytes % 8 % (0-10) Platelet Estimate Adequate (ADEQUATE) Platelet Clumps, EDTA Present Prothrombin Time 16.1 SEC (11.7-14.0) Prothromb Time International Ratio 1.3 (0.8-1.1) Activated Partial Thromboplast Time 26 SEC (24-38) Sodium Level 141 mmol/L (136-145) Potassium Level 7.0 mmol/L (3.5-5.1) Chloride Level 91 mmol/L (98-107) Carbon Dioxide Level 7 mmol/L (21-32) Anion Gap 43 (6-14) Blood Urea Nitrogen 212 mg/dL (8-26) Creatinine 20.7 mg/dL (0.7-1.3) Estimated GFR (Cockcroft-Gault) 2.4 BUN/Creatinine Ratio 10 (6-20) Glucose Level 737 mg/dL (70-99) 705 mg/dL (70-99) Lactic Acid Level 2.9 mmol/L (0.4-2.0) Calcium Level 7.3 mg/dL (8.5-10.1) Magnesium Level 3.1 mg/dL (1.8-2.4) Total Bilirubin 0.7 mg/dL (0.2-1.0) Aspartate Amino Transf (AST/SGOT) 18 U/L (15-37) Alanine Aminotransferase (ALT/SGPT) 16 U/L (16-63) Alkaline Phosphatase 161 U/L (46-116) Ammonia < 10 mcmol/L (11-34) Creatine Kinase 2033 U/L (39-308) Creatine Kinase MB (Mass) 2.8 ng/mL (0.0-3.6) Creatine Kinase MB Relative Index 0.1 % (0-4) Troponin I Quantitative 0.104 ng/mL (0.000-0.055) Total Protein 8.8 g/dL (6.4-8.2) Albumin 3.2 g/dL (3.4-5.0) Albumin/Globulin Ratio 0.6 (1.0-1.7) Acetone Level Sm pos (NEG) O2 Saturation 93 % (92-99) Arterial Blood pH 7.23 (7.35-7.45) Arterial Blood pCO2 at Patient Temp 21 mmHg (35-46) Arterial Blood pO2 at Patient Temp 84 mmHg (75-108) Arterial Blood HCO3 8 mmol/L (21-28) Arterial Blood Base Excess -17 mmol/L (-3-3) Oxyhemoglobin 92.3 % Methemoglobin 0.6 % (0.0-1.9) Carbon Monoxide, Quantitative 0.2 % (0.0-1.9) FiO2 21 Urine Collection Type Unknown Urine Color Yellow Urine Clarity Clear Urine pH 6.5 Urine Specific Royal 1.020 Urine Protein 100 mg/dL (NEG-TRACE) Urine Glucose (UA) >=1000 mg/dL (NEG) Urine Ketones (Stick) 15 mg/dL (NEG) Urine Blood Large (NEG) Urine Nitrite Negative (NEG) Urine Bilirubin Moderate (NEG) Urine Urobilinogen Dipstick 0.2 mg/dL (0.2 mg/dL) Urine Leukocyte Esterase Small (NEG) Urine RBC 6-10 /HPF (0-2) Urine WBC 11-20 /HPF (0-4) Urine Squamous Epithelial Cells Mod /LPF Urine Bacteria 0 /HPF (0-FEW) Urine Mucus Mod /LPF Urine Opiates Screen Neg (NEG) Urine Methadone Screen Neg (NEG) Urine Barbiturates Neg (NEG) Urine Phencyclidine Screen Neg (NEG) Urine Amphetamine/Methamphetamine Neg (NEG) Urine Benzodiazepines Screen Neg (NEG) Urine Cocaine Screen Neg (NEG) Urine Cannabinoids Screen Neg (NEG) Urine Ethyl Alcohol Neg (NEG) Test 02/11/19 22:09 02/11/19 22:30 02/11/19 23:18 02/11/19 23:45 Glucose (Fingerstick) 560 mg/dL (70-99) 438 mg/dL (70-99) Sodium Level 147 mmol/L (136-145) Potassium Level 4.9 mmol/L (3.5-5.1) Chloride Level 102 mmol/L (98-107) Carbon Dioxide Level 12 mmol/L (21-32) Anion Gap 33 (6-14) Blood Urea Nitrogen 221 mg/dL (8-26) Creatinine 20.0 mg/dL (0.7-1.3) Estimated GFR (Cockcroft-Gault) 2.5 Glucose Level 605 mg/dL (70-99) Lactic Acid Level 2.9 mmol/L (0.4-2.0) Calcium Level 6.9 mg/dL (8.5-10.1) Phosphorus Level 8.5 mg/dL (2.6-4.7) Magnesium Level 2.9 mg/dL (1.8-2.4) Troponin I Quantitative 0.098 ng/mL (0.000-0.055) Hepatitis B Surface Antigen Nonreactive (Nonreactive) Hepatitis B Surface Antibody Nonreactive Test 02/12/19 00:23 02/12/19 01:26 02/12/19 02:27 02/12/19 02:30 Glucose (Fingerstick) 296 mg/dL (70-99) 147 mg/dL (70-99) 132 mg/dL (70-99) Troponin I Quantitative 0.153 ng/mL (0.000-0.055) Triglycerides Level 344 mg/dL (0-150) Cholesterol Level 201 mg/dL (0-200) LDL Cholesterol, Calculated 89 mg/dL (0-100) VLDL Cholesterol, Calculated 69 mg/dL (0-40) Non-HDL Cholesterol Calculated 158 mg/dL (0-129) HDL Cholesterol 43 mg/dL (40-60) Cholesterol/HDL Ratio 4.7 Test 02/12/19 02:55 02/12/19 03:42 02/12/19 04:50 02/12/19 05:54 Sodium Level 148 mmol/L (136-145) Potassium Level 4.0 mmol/L (3.5-5.1) Chloride Level 99 mmol/L (98-107) Carbon Dioxide Level 23 mmol/L (21-32) Anion Gap 26 (6-14) Blood Urea Nitrogen 114 mg/dL (8-26) Creatinine 12.6 mg/dL (0.7-1.3) Estimated GFR (Cockcroft-Gault) 4.2 Glucose Level 150 mg/dL (70-99) Lactic Acid Level 5.9 mmol/L (0.4-2.0) Calcium Level 8.9 mg/dL (8.5-10.1) Phosphorus Level 4.6 mg/dL (2.6-4.7) Magnesium Level 2.4 mg/dL (1.8-2.4) Glucose (Fingerstick) 228 mg/dL (70-99) 251 mg/dL (70-99) 211 mg/dL (70-99) Test 02/12/19 06:40 02/12/19 07:11 02/12/19 08:00 02/12/19 08:14 Sodium Level 146 mmol/L (136-145) Potassium Level 3.5 mmol/L (3.5-5.1) Chloride Level 102 mmol/L (98-107) Carbon Dioxide Level 23 mmol/L (21-32) Anion Gap 21 (6-14) Blood Urea Nitrogen 122 mg/dL (8-26) Creatinine 14.3 mg/dL (0.7-1.3) Estimated GFR (Cockcroft-Gault) 3.7 Glucose Level 156 mg/dL (70-99) Lactic Acid Level 2.9 mmol/L (0.4-2.0) Calcium Level 6.8 mg/dL (8.5-10.1) Phosphorus Level 4.5 mg/dL (2.6-4.7) Magnesium Level 1.9 mg/dL (1.8-2.4) Glucose (Fingerstick) 130 mg/dL (70-99) 97 mg/dL (70-99) O2 Saturation 97 % (92-99) Arterial Blood pH 7.46 (7.35-7.45) Arterial Blood pCO2 at Patient Temp 32 mmHg (35-46) Arterial Blood pO2 at Patient Temp 95 mmHg (75-108) Arterial Blood HCO3 22 mmol/L (21-28) Arterial Blood Base Excess -1 mmol/L (-3-3) FiO2 2 lpm nc Test 02/12/19 09:23 02/12/19 10:36 02/12/19 10:40 Glucose (Fingerstick) 145 mg/dL (70-99) 173 mg/dL (70-99) Sodium Level 145 mmol/L (136-145) Potassium Level 4.0 mmol/L (3.5-5.1) Chloride Level 104 mmol/L (98-107) Carbon Dioxide Level 23 mmol/L (21-32) Anion Gap 18 (6-14) Blood Urea Nitrogen 120 mg/dL (8-26) Creatinine 14.4 mg/dL (0.7-1.3) Estimated GFR (Cockcroft-Gault) 3.6 Glucose Level 174 mg/dL (70-99) Calcium Level 6.7 mg/dL (8.5-10.1) Phosphorus Level 4.7 mg/dL (2.6-4.7) Magnesium Level 1.7 mg/dL (1.8-2.4) Review All relevant outside records, renal labs, imaging studies, telemetry/EKG's were reviewed. ROHIT KNOWLES MD Feb 12, 2019 11:36
[2019-02-12 14:45] LABS: BASO % 0 % (0-3); EOS % 0 % (0-3); HEMOGLOBIN 10.1 g/dL (13.0-17.5); LYMPH # 0.5 x10^3/uL (1.0-4.8); LYMPH % 5 % (24-48); MEAN CORPUSCULAR HEMOGLOBIN 33 pg (25-35); MEAN CORPUSCULAR HGB CONC 35 g/dL (31-37); MEAN CORPUSCULAR VOLUME 95 fL (79-100); MONO # 0.8 x10^3/uL (0.0-1.1); MONO % 8 % (0-9); NEUT % 85 % (31-73); PLATELET COUNT 210 x10^3/uL (140-400); RED BLOOD COUNT 3.07 x10^6/uL (4.30-5.70); RED CELL DISTRIBUTION WIDTH 13.1 % (11.5-14.5); WHITE BLOOD COUNT 9.4 x10^3/uL (4.0-11.0)
[2019-02-12] MEDS ORDERED: 0.9 % SODIUM CHLORIDE 10 ML DISP.SYRIN. IV PRN ×2 (15:00)
[2019-02-12] MEDS ORDERED: IV NORMAL SALINE 1000ML BAG 1,000 ML IV PRN ×2 (15:00)
[2019-02-12 15:03] LABS: CREATININE 14.2 mg/dL (0.7-1.3); GFR 3.7; MAGNESIUM 1.7 mg/dL (1.8-2.4); PHOSPHORUS 3.7 mg/dL (2.6-4.7); POTASSIUM 3.7 mmol/L (3.5-5.1)
--- NOTE | 2019-02-12 16:06 | CARD ---
MR#: [id number] Date of Study: 02/12/2019 Ordering Physician: CARMELLA DERAS, Referring Physician: RUFINO GRANDE, Tech: Marii Rodas APPROVED REPORT EXAM: Two-dimensional and M-mode echocardiogram with Doppler and color Doppler. Other Information Quality : AverageHR: 102bpm INDICATION Elevated Troponin 2D DIMENSIONS RVDd2.7 (2.9-3.5cm)Left Atrium(2D)2.2 (1.6-4.0cm) IVSd0.9 (0.7-1.1cm)Aortic Root(2D)3.1 (2.0-3.7cm) LVDd4.5 (3.9-5.9cm)LVOT Diameter2.0 (1.8-2.4cm) PWd0.9 (0.7-1.1cm)LVDs3.0 (2.5-4.0cm) FS (%) 33.1 %SV58.1 ml LVEF(%)61.9 (>50%) Aortic Valve AoV Peak Pablo.138.4cm/sAoV VTI23.9cm AO Peak GR.7.7mmHgLVOT VTI 13.48cm AO Mean GR.7mmHg TDI Lateral E' P. V7.92cm/sMedial E' P. V7.25cm/s Tricuspid Valve TR P. [id number] [id number] TR Peak Gr.[id number] Pulmonary Vein S1 Velocity2.0cm/sS2 Zoshabdp46.32cm/s D2 Uwrxkuxd27.3cm/sPVa [id number] LEFT VENTRICLE The left ventricle is normal size. There is normal left ventricular wall thickness. The left ventricu lar systolic function is normal. The Ejection Fraction is 55-60%. There is normal LV segmental wall m otion. Transmitral Doppler flow pattern is Grade I-abnormal relaxation pattern. RIGHT VENTRICLE The right ventricle is borderline dilated. There is normal right ventricular wall thickness. The righ t ventricular systolic function is normal. ATRIA The left atrium size is normal. The right atrium size is normal. The interatrial septum is intact wit h no evidence for an atrial septal defect or patent foramen ovale as noted on 2-D or Doppler imaging. AORTIC VALVE The aortic valve is calcified but opens well. Doppler and Color Flow revealed no significant aortic r egurgitation. There is no significant aortic valvular stenosis. MITRAL VALVE The mitral valve is normal in structure and function. There is no evidence of mitral valve prolapse. There is no mitral valve stenosis. Doppler and Color Flow revealed no mitral valve regurgitation note d. TRICUSPID VALVE The tricuspid valve is normal in structure and function. Doppler and Color Flow revealed trace tricus pid regurgitation with an estimated PAP of 35 mmHg. There is no tricuspid valve prolapse or vegetatio n. There is no tricuspid valve stenosis. PULMONIC VALVE The pulmonic valve is not well visualized. Doppler and Color Flow revealed no pulmonic valvular regur gitation. GREAT VESSELS The aortic root is normal in size. The IVC is normal in size and collapses >50% with inspiration. PERICARDIAL EFFUSION There is no evidence of significant pericardial effusion. Critical Notification Critical Value: No <Conclusion> The left ventricular systolic function is normal. The Ejection Fraction is 55-60%. There is normal LV segmental wall motion. Trace tricuspid regurgitation with an estimated PAP of 35 mmHg. There is no evidence of significant pericardial effusion. Signed by : Eitan Carolina, Electronically Approved : 02/12/2019 16:05:51
--- NOTE | 2019-02-12 17:05 | RAD ---
PROCEDURE: ULTRASOUND GUIDED RIGHT INTERNAL JUGULAR TEMPORARY HEMODIALYSIS CATHETER PLACEMENT Clinical Indication: 53-year-old male in with diabetic ketoacidosis and acute renal failure requiring emergent dialysis The procedure, risks, and complications, to include pneumothorax, air embolism, bleeding, infection, and arrhythmia, were explained at length to the patient and his family they understood and wished to proceed. Consent form signed. The patient was prepped and draped using maximum sterile technique, including the use of: Current guideline approved cutaneous antisepsis, a large sterile sheet to establish a sterile field. Additionally the operator ground based air defence wore a hat, mask, sterile gloves, a sterile gown during the procedure as well as practiced acceptable hand hygiene prior to placing the line. If ultrasound was utilized, sterile ultrasound technique was followed. Lidocaine was used for local anesthesia. ACCESS: Ultrasound evaluation of the right neck was performed and the internal jugular vein is patent. Utilizing ultrasound guidance, a micropuncture needle was advanced into the internal jugular vein. The needle tip position in the vein was documented and an image saved and sent to PACS. A 0.018" wire was advanced through the micropuncture needle into the SVC. Small dermatotomy was made. Micropuncture needle was removed and replaced with a micropuncture sheath. 0.018" wire and inner dilator were removed and replaced with a 0.035" wire which was advanced into the IVC. The neck access site was serially dilated. A 20 cm trifusion hemodialysis catheter was advanced iwithout complication. 5 cm was left exposed so the internal length was 15 cm. The catheter was sutured to the skin. The catheter was flushed with 1000 U/cc Heparin. Spot radiographicimage of the chest: The temporary hemodialysis catheter is in a satisfactory position at the superior cavoatrial junction. Negative for pneumothorax. Sedation: None. The patient was continually monitored by a member of the Radiology nursing staff. Continual cardiopulmonary monitoring was carried out during the procedure. The patient tolerated the procedure well and there were no immediate complications. Fluoroscopy time: None. Procedure was performed at bedside. COMPLICATIONS: None CONTRAST: None The patient tolerated procedure well. Patient remained within the ICU for the duration of the procedure. IMPRESSION: Successful placement of a temporary right internal jugular Trifusion hemodialysis catheter with ultrasound guidance. Catheter is okay to use. Electronically signed by: Joo Mobley MD (02/12/2019 5:02 PM) [id number]
--- NOTE | 2019-02-12 17:37 | EEG ---
DATE OF SERVICE: 02/12/2019 EEG NUMBER: [id number] OBJECTIVE: The patient is a 53-year-old male with multiple metabolic problems, who had a seizure earlier this morning. DESCRIPTION: This is a digital study. Electrodes are placed according to the international 10-20 system. Bipolar and referential montages are available. Activation procedures typically include hyperventilation and intermittent photic stimulation. INTERPRETATION: The waking background consists of 4-6 Hz, 50-100 microvolt activity without reactivity. Hyperventilation is not performed. Intermittent photic stimulation is noncontributory. IMPRESSION: This electroencephalogram with the patient in an obtunded state is abnormal. There is a moderate, diffuse disturbance of cerebral activity consistent with any of a variety of toxic or metabolic encephalopathies. There is no focal, paroxysmal, or epileptiform activity. Thank you for letting this help with the patient's care. CITLALLI GONZALEZ MD DR: CHRIS/cristiano JOB#: [id number] / [id number]
[2019-02-12] MEDS ORDERED: DIALYSIS PATIENT. MC PRN ×2 (18:00)
[2019-02-12 18:56] LABS: CALCIUM 7.4 mg/dL (8.5-10.1); CREATININE 6.3 mg/dL (0.7-1.3); GFR 9.4; MAGNESIUM 1.5 mg/dL (1.8-2.4); PHOSPHORUS 2.1 mg/dL (2.6-4.7); POTASSIUM 3.5 mmol/L (3.5-5.1)
[2019-02-12] MEDS ORDERED: DEXTROSE 50% 25 GM / 50ML DISP.SYRIN. IV PRN (20:45)
[2019-02-12] MEDS: IV NORMAL SALINE 1000ML BAG 1,000 ML IV SCH (20:49)
[2019-02-12] MEDS: hydrALAZINE 20 MG/ML VIAL. IVP PRN (20:49)
[2019-02-12] MEDS: INSULIN LISPRO 300 UNITS/3 ML INSULN.PEN. SQ SCH (23:40)
--- NOTE | 2019-02-12 23:48 | CONS ---
DATE OF CONSULTATION: 02/12/2019 REFERRING PHYSICIAN: Nicholas Howard MD REASON FOR CONSULTATION: Sepsis. HISTORY OF PRESENT ILLNESS: The patient is a 53-year-old male who is encephalopathic, unable to provide history of present illness, past medical history or review of systems. According to his mother, who is at the bedside, he had not been feeling well for over a week. He complained of a sore throat and difficulty swallowing. He is a diabetic and was unable to swallow his medications. He felt warm and had chills. He became increasingly weak, needing assistance to sit up and seemed confused. On arrival to the ER, he was found to have a glucose level greater than 700. He was in acute renal failure with a creatinine of 20.7, BUN 212 and potassium 7.0. A HD catheter was placed. Dictation Ends Here. NEAL MIRANDA MD DR: ROBB/cristiano JOB#: [id number] / [id number]
[2019-02-13] VITALS (24 sets, daily range): BP systolic 83–167; BP diastolic 48–85
[2019-02-13] MEDS ORDERED: ALBUTEROL SULFATE 2.5 MG/3 ML NEBU. NEB ONE (01:00)
[2019-02-13] MEDS: ONDANSETRON PF 4 MG/2 ML VIAL. IV PRN (03:39)
[2019-02-13] MEDS ORDERED: AZITHROMYCIN 500 MG in IV NORMAL SALINE 250ML 250 ML IV ONE (05:00)
[2019-02-13] MEDS ORDERED: AZITHRMYCN 500MG IVPB FOR OMNI 250 ML IV ONE (05:00)
[2019-02-13 05:39] LABS: INFLUENZA A PATIENT NEGATIVE (NEGATIVE); INFLUENZA B PATIENT NEGATIVE (NEGATIVE)
[2019-02-13] MEDS: PIPERACILLIN/TAZOBACTAM 2.25 GM in IV NORMAL SALINE 50ML 50 ML IV SCH ×3 (05:44→22:21)
[2019-02-13] MEDS: INSULIN LISPRO 300 UNITS/3 ML INSULN.PEN. SQ SCH ×3 (06:00→17:25)
[2019-02-13 06:05] LABS: BASO % 0 % (0-3); EOS % 0 % (0-3); HEMATOCRIT 28.9 % (39.0-53.0); HEMOGLOBIN 9.9 g/dL (13.0-17.5); LYMPH # 0.2 x10^3/uL (1.0-4.8); LYMPH % 2 % (24-48); MEAN CORPUSCULAR HEMOGLOBIN 33 pg (25-35); MEAN CORPUSCULAR HGB CONC 34 g/dL (31-37); MEAN CORPUSCULAR VOLUME 96 fL (79-100); MONO # 0.8 x10^3/uL (0.0-1.1); MONO % 8 % (0-9); NEUT # 8.8 x10^3/uL (1.8-7.7); NEUT % 90 % (31-73); PLATELET COUNT 173 x10^3/uL (140-400); RED BLOOD COUNT 3.01 x10^6/uL (4.30-5.70); RED CELL DISTRIBUTION WIDTH 13.1 % (11.5-14.5); WHITE BLOOD COUNT 9.8 x10^3/uL (4.0-11.0)
[2019-02-13 06:09] LABS: ALBUMIN 2.1 g/dL (3.4-5.0); ALBUMIN/GLOBULIN RATIO 0.6 (1.0-1.7); CALCIUM 7.1 mg/dL (8.5-10.1); CREATININE 8.1 mg/dL (0.7-1.3); POTASSIUM 5.2 mmol/L (3.5-5.1); TOTAL BILIRUBIN 0.9 mg/dL (0.2-1.0); TOTAL PROTEIN 5.8 g/dL (6.4-8.2)
--- NOTE | 2019-02-13 06:42 | NUR ---
Blood glucose is 427 this am, held sliding scale SQ insulin and re-started insulin gtt per glucostabilizer.
--- NOTE | 2019-02-13 08:28 | PDOC ---
Infectious Disease Note Subjective Subjective Comfortable, denies pain/SOA/chills/N/V Low-grade fevers over last 12 hours, Tmax 100.8 Venti-mask FiO2 50% and satting >95% Low UO <20 ml/hr Mother and sister at bedside. They feel he is doing much better, more responsive. ROS ROS per HPI Vital Sign Vital Signs Vital Signs Date Time Temp Pulse Resp B/P (MAP) Pulse Ox O2 Delivery O2 Flow Rate FiO2 02/13/19 07:00 111 30 155/75 (101) 96 Venturi Mask 02/13/19 06:00 100.7 100.7 02/13/19 01:00 4.0 Physical Exam PHYSICAL EXAM GENERAL: Propped up in bed, alert, NAD HEENT: Pupils equally round. Oral cavity clear. NECK: Supple. LUNGS: Improved aeration, nonlabored. HEART: S1 and S2. ABDOMEN: Nondistended, soft, no guarding. Bowel sounds present. GENITOURINARY: Indwelling G[place] in place. EXTREMITIES: No gross edema or cyanosis. SKIN: Warm to touch without signs of rash. NEUROLOGIC: ALert, answering simple questions appropriately RIJ/HDC (8-6) without signs of any complications. PIV Labs Lab Laboratory Tests Test 02/12/19 09:23 02/12/19 10:36 02/12/19 10:40 02/12/19 11:36 Glucose (Fingerstick) 145 mg/dL (70-99) 173 mg/dL (70-99) 183 mg/dL (70-99) Sodium Level 145 mmol/L (136-145) Potassium Level 4.0 mmol/L (3.5-5.1) Chloride Level 104 mmol/L (98-107) Carbon Dioxide Level 23 mmol/L (21-32) Anion Gap 18 (6-14) Blood Urea Nitrogen 120 mg/dL (8-26) Creatinine 14.4 mg/dL (0.7-1.3) Estimated GFR (Cockcroft-Gault) 3.6 Glucose Level 174 mg/dL (70-99) Calcium Level 6.7 mg/dL (8.5-10.1) Phosphorus Level 4.7 mg/dL (2.6-4.7) Magnesium Level 1.7 mg/dL (1.8-2.4) Test 02/12/19 12:00 02/12/19 12:41 02/12/19 14:03 02/12/19 14:40 Group A Streptococcus Rapid Negative (NEGATIVE) Glucose (Fingerstick) 163 mg/dL (70-99) 131 mg/dL (70-99) White Blood Count 9.4 x10^3/uL (4.0-11.0) Red Blood Count 3.07 x10^6/uL (4.30-5.70) Hemoglobin 10.1 g/dL (13.0-17.5) Hematocrit 29.0 % (39.0-53.0) Mean Corpuscular Volume 95 fL (79-100) Mean Corpuscular Hemoglobin 33 pg (25-35) Mean Corpuscular Hemoglobin Concent 35 g/dL (31-37) Red Cell Distribution Width 13.1 % (11.5-14.5) Platelet Count 210 x10^3/uL (140-400) Neutrophils (%) (Auto) 85 % (31-73) Lymphocytes (%) (Auto) 5 % (24-48) Monocytes (%) (Auto) 8 % (0-9) Eosinophils (%) (Auto) 0 % (0-3) Basophils (%) (Auto) 0 % (0-3) Neutrophils # (Auto) 8.0 x10^3/uL (1.8-7.7) Lymphocytes # (Auto) 0.5 x10^3/uL (1.0-4.8) Monocytes # (Auto) 0.8 x10^3/uL (0.0-1.1) Eosinophils # (Auto) 0.0 x10^3/uL (0.0-0.7) Basophils # (Auto) 0.0 x10^3/uL (0.0-0.2) Sodium Level 143 mmol/L (136-145) Potassium Level 3.7 mmol/L (3.5-5.1) Chloride Level 103 mmol/L (98-107) Carbon Dioxide Level 23 mmol/L (21-32) Anion Gap 17 (6-14) Blood Urea Nitrogen 123 mg/dL (8-26) Creatinine 14.2 mg/dL (0.7-1.3) Estimated GFR (Cockcroft-Gault) 3.7 Glucose Level 127 mg/dL (70-99) Calcium Level 7.0 mg/dL (8.5-10.1) Phosphorus Level 3.7 mg/dL (2.6-4.7) Magnesium Level 1.7 mg/dL (1.8-2.4) Test 02/12/19 15:13 02/12/19 16:19 02/12/19 17:23 02/12/19 18:27 Glucose (Fingerstick) 121 mg/dL (70-99) 119 mg/dL (70-99) 127 mg/dL (70-99) 136 mg/dL (70-99) Test 02/12/19 18:37 02/12/19 21:47 02/12/19 23:39 02/13/19 04:55 Sodium Level 140 mmol/L (136-145) Potassium Level 3.5 mmol/L (3.5-5.1) Chloride Level 99 mmol/L (98-107) Carbon Dioxide Level 31 mmol/L (21-32) Anion Gap 10 (6-14) Blood Urea Nitrogen 49 mg/dL (8-26) Creatinine 6.3 mg/dL (0.7-1.3) Estimated GFR (Cockcroft-Gault) 9.4 Glucose Level 139 mg/dL (70-99) Calcium Level 7.4 mg/dL (8.5-10.1) Phosphorus Level 2.1 mg/dL (2.6-4.7) Magnesium Level 1.5 mg/dL (1.8-2.4) Glucose (Fingerstick) 200 mg/dL (70-99) 253 mg/dL (70-99) Influenza Type A Antigen Negative (NEGATIVE) Influenza Type B Antigen Negative (NEGATIVE) Test 02/13/19 05:40 02/13/19 07:10 White Blood Count 9.8 x10^3/uL (4.0-11.0) Red Blood Count 3.01 x10^6/uL (4.30-5.70) Hemoglobin 9.9 g/dL (13.0-17.5) Hematocrit 28.9 % (39.0-53.0) Mean Corpuscular Volume 96 fL (79-100) Mean Corpuscular Hemoglobin 33 pg (25-35) Mean Corpuscular Hemoglobin Concent 34 g/dL (31-37) Red Cell Distribution Width 13.1 % (11.5-14.5) Platelet Count 173 x10^3/uL (140-400) Neutrophils (%) (Auto) 90 % (31-73) Lymphocytes (%) (Auto) 2 % (24-48) Monocytes (%) (Auto) 8 % (0-9) Eosinophils (%) (Auto) 0 % (0-3) Basophils (%) (Auto) 0 % (0-3) Neutrophils # (Auto) 8.8 x10^3/uL (1.8-7.7) Lymphocytes # (Auto) 0.2 x10^3/uL (1.0-4.8) Monocytes # (Auto) 0.8 x10^3/uL (0.0-1.1) Eosinophils # (Auto) 0.0 x10^3/uL (0.0-0.7) Basophils # (Auto) 0.0 x10^3/uL (0.0-0.2) Sodium Level 136 mmol/L (136-145) Potassium Level 5.2 mmol/L (3.5-5.1) Chloride Level 98 mmol/L (98-107) Carbon Dioxide Level 24 mmol/L (21-32) Anion Gap 14 (6-14) Blood Urea Nitrogen 63 mg/dL (8-26) Creatinine 8.1 mg/dL (0.7-1.3) Estimated GFR (Cockcroft-Gault) 7.0 BUN/Creatinine Ratio 8 (6-20) Glucose Level 434 mg/dL (70-99) Glucose (Fingerstick) 427 mg/dL (70-99) 383 mg/dL (70-99) Calcium Level 7.1 mg/dL (8.5-10.1) Total Bilirubin 0.9 mg/dL (0.2-1.0) Aspartate Amino Transf (AST/SGOT) 33 U/L (15-37) Alanine Aminotransferase (ALT/SGPT) 14 U/L (16-63) Alkaline Phosphatase 96 U/L (46-116) Total Protein 5.8 g/dL (6.4-8.2) Albumin 2.1 g/dL (3.4-5.0) Albumin/Globulin Ratio 0.6 (1.0-1.7) Micro Microbiology 02/12/19 Blood Culture - Preliminary, Resulted NO GROWTH AFTER 1 DAY Objective Assessment Aspiration - pharyngitis is better Fever - Group A rapid neg. - Leukocytosis - better Acute encephalopathy SARAH requiring HD DKA Seizure Plan Plan of Care Continue Zosyn, renal dose One time dose azithromycin, 02/12 today and will repeat in am 8 f/u cultures Monitor labs D/w mother and sister at bedside D/w nursing Critically ill Clinically improving Attending Co-Sign Attending Co-Sign The patient was seen and interviewed as well as examined at the bedside. The chart was reviewed. The case was discussed. Agree with the plan of care. TANIKA JOSEPH APRN Feb 13, 2019 08:28 NEAL MIRANDA MD Feb 13, 2019 13:37
[2019-02-13] MEDS: IV NORMAL SALINE 1000ML BAG 1,000 ML IV SCH ×2 (08:40→22:21)
--- NOTE | 2019-02-13 10:23 | PDOC ---
PROGRESS NOTES Assessment Problems Medical Problems: (1) DKA (diabetic ketoacidoses) Status: Acute (2) Elevated troponin Status: Acute (3) Renal failure Status: Acute Seizure related to metabolic encephalopathy, EEG negative for epileptic activity. Metabolic encephalopathy with leukocytosis, diabetic ketoacidosis, renal failure, hypocalcemia, rhabdomyolysis. Much better Plan Lorazepam as needed for seizures but only if they last more than 3-5 minutes Seizure precautions I canceled MRI brain given the marked improvement I will also consider lumbar puncture Discussed with patient's family. Subjective No complaints Objective Vital Signs Date Time Temp Pulse Resp B/P (MAP) Pulse Ox O2 Delivery O2 Flow Rate FiO2 02/13/19 09:00 100 18 135/74 (94) 99 Venturi Mask 02/13/19 08:00 99.0 99.0 02/13/19 08:00 15.0 Intake and Output 02/13/19 06:59 Intake Total 3837 ml Output Total 335 ml Balance 3502 ml IV Total 3837 ml Output Urine Total 335 ml # Bowel Movements 2 PHYSICAL EXAM Alert. Oriented to place and person, does not know the date. PERRL. EOMI. CN: no focal findings. Muscle tone: normal. Muscle strength: 4/5 DTR: 1+ Plantar reflex: Flexor Gait: not examined in bed. Sensory exam: no abnormal findings. No cerebellar signs elicited. Review of Relevant I have reviewed the following items mindy (where applicable) has been applied. Labs Laboratory Tests Test 02/11/19 19:00 02/11/19 20:00 02/11/19 20:20 02/11/19 21:35 White Blood Count 12.0 x10^3/uL (4.0-11.0) Red Blood Count 4.33 x10^6/uL (4.30-5.70) Hemoglobin 14.2 g/dL (13.0-17.5) Hematocrit 42.9 % (39.0-53.0) Mean Corpuscular Volume 99 fL (79-100) Mean Corpuscular Hemoglobin 33 pg (25-35) Mean Corpuscular Hemoglobin Concent 33 g/dL (31-37) Red Cell Distribution Width 13.9 % (11.5-14.5) Platelet Count 330 x10^3/uL (140-400) Neutrophils (%) (Auto) 91 % (31-73) Lymphocytes (%) (Auto) 2 % (24-48) Monocytes (%) (Auto) 7 % (0-9) Eosinophils (%) (Auto) 0 % (0-3) Basophils (%) (Auto) 0 % (0-3) Neutrophils # (Auto) 10.9 x10^3/uL (1.8-7.7) Lymphocytes # (Auto) 0.2 x10^3/uL (1.0-4.8) Monocytes # (Auto) 0.8 x10^3/uL (0.0-1.1) Eosinophils # (Auto) 0.0 x10^3/uL (0.0-0.7) Basophils # (Auto) 0.0 x10^3/uL (0.0-0.2) Segmented Neutrophils % 84 % (35-66) Band Neutrophils % 4 % (0-9) Lymphocytes % 4 % (24-48) Monocytes % 8 % (0-10) Platelet Estimate Adequate (ADEQUATE) Platelet Clumps, EDTA Present Prothrombin Time 16.1 SEC (11.7-14.0) Prothromb Time International Ratio 1.3 (0.8-1.1) Activated Partial Thromboplast Time 26 SEC (24-38) Sodium Level 141 mmol/L (136-145) Potassium Level 7.0 mmol/L (3.5-5.1) Chloride Level 91 mmol/L (98-107) Carbon Dioxide Level 7 mmol/L (21-32) Anion Gap 43 (6-14) Blood Urea Nitrogen 212 mg/dL (8-26) Creatinine 20.7 mg/dL (0.7-1.3) Estimated GFR (Cockcroft-Gault) 2.4 BUN/Creatinine Ratio 10 (6-20) Glucose Level 737 mg/dL (70-99) 705 mg/dL (70-99) Lactic Acid Level 2.9 mmol/L (0.4-2.0) Calcium Level 7.3 mg/dL (8.5-10.1) Magnesium Level 3.1 mg/dL (1.8-2.4) Total Bilirubin 0.7 mg/dL (0.2-1.0) Aspartate Amino Transf (AST/SGOT) 18 U/L (15-37) Alanine Aminotransferase (ALT/SGPT) 16 U/L (16-63) Alkaline Phosphatase 161 U/L (46-116) Ammonia < 10 mcmol/L (11-34) Creatine Kinase 2033 U/L (39-308) Creatine Kinase MB (Mass) 2.8 ng/mL (0.0-3.6) Creatine Kinase MB Relative Index 0.1 % (0-4) Troponin I Quantitative 0.104 ng/mL (0.000-0.055) Total Protein 8.8 g/dL (6.4-8.2) Albumin 3.2 g/dL (3.4-5.0) Albumin/Globulin Ratio 0.6 (1.0-1.7) Acetone Level Sm pos (NEG) Nasal Screen MRSA (PCR) Negative (Negative) O2 Saturation 93 % (92-99) Arterial Blood pH 7.23 (7.35-7.45) Arterial Blood pCO2 at Patient Temp 21 mmHg (35-46) Arterial Blood pO2 at Patient Temp 84 mmHg (75-108) Arterial Blood HCO3 8 mmol/L (21-28) Arterial Blood Base Excess -17 mmol/L (-3-3) Oxyhemoglobin 92.3 % Methemoglobin 0.6 % (0.0-1.9) Carbon Monoxide, Quantitative 0.2 % (0.0-1.9) FiO2 21 Test 02/11/19 21:50 02/11/19 22:09 02/11/19 22:30 02/11/19 23:18 Urine Collection Type Unknown Urine Color Yellow Urine Clarity Clear Urine pH 6.5 Urine Specific [place] 1.020 Urine Protein 100 mg/dL (NEG-TRACE) Urine Glucose (UA) >=1000 mg/dL (NEG) Urine Ketones (Stick) 15 mg/dL (NEG) Urine Blood Large (NEG) Urine Nitrite Negative (NEG) Urine Bilirubin Moderate (NEG) Urine Urobilinogen Dipstick 0.2 mg/dL (0.2 mg/dL) Urine Leukocyte Esterase Small (NEG) Urine RBC 6-10 /HPF (0-2) Urine WBC 11-20 /HPF (0-4) Urine Squamous Epithelial Cells Mod /LPF Urine Bacteria 0 /HPF (0-FEW) Urine Mucus Mod /LPF Urine Opiates Screen Neg (NEG) Urine Methadone Screen Neg (NEG) Urine Barbiturates Neg (NEG) Urine Phencyclidine Screen Neg (NEG) Urine Amphetamine/Methamphetamine Neg (NEG) Urine Benzodiazepines Screen Neg (NEG) Urine Cocaine Screen Neg (NEG) Urine Cannabinoids Screen Neg (NEG) Urine Ethyl Alcohol Neg (NEG) Glucose (Fingerstick) 560 mg/dL (70-99) 438 mg/dL (70-99) Sodium Level 147 mmol/L (136-145) Potassium Level 4.9 mmol/L (3.5-5.1) Chloride Level 102 mmol/L (98-107) Carbon Dioxide Level 12 mmol/L (21-32) Anion Gap 33 (6-14) Blood Urea Nitrogen 221 mg/dL (8-26) Creatinine 20.0 mg/dL (0.7-1.3) Estimated GFR (Cockcroft-Gault) 2.5 Glucose Level 605 mg/dL (70-99) Lactic Acid Level 2.9 mmol/L (0.4-2.0) Calcium Level 6.9 mg/dL (8.5-10.1) Phosphorus Level 8.5 mg/dL (2.6-4.7) Magnesium Level 2.9 mg/dL (1.8-2.4) Troponin I Quantitative 0.098 ng/mL (0.000-0.055) Test 02/11/19 23:45 02/12/19 00:23 02/12/19 01:26 02/12/19 02:27 Hepatitis B Surface Antigen Nonreactive (Nonreactive) Hepatitis B Surface Antibody Nonreactive Glucose (Fingerstick) 296 mg/dL (70-99) 147 mg/dL (70-99) 132 mg/dL (70-99) Test 02/12/19 02:30 02/12/19 02:55 02/12/19 03:42 02/12/19 04:50 Troponin I Quantitative 0.153 ng/mL (0.000-0.055) Triglycerides Level 344 mg/dL (0-150) Cholesterol Level 201 mg/dL (0-200) LDL Cholesterol, Calculated 89 mg/dL (0-100) VLDL Cholesterol, Calculated 69 mg/dL (0-40) Non-HDL Cholesterol Calculated 158 mg/dL (0-129) HDL Cholesterol 43 mg/dL (40-60) Cholesterol/HDL Ratio 4.7 Sodium Level 148 mmol/L (136-145) Potassium Level 4.0 mmol/L (3.5-5.1) Chloride Level 99 mmol/L (98-107) Carbon Dioxide Level 23 mmol/L (21-32) Anion Gap 26 (6-14) Blood Urea Nitrogen 114 mg/dL (8-26) Creatinine 12.6 mg/dL (0.7-1.3) Estimated GFR (Cockcroft-Gault) 4.2 Glucose Level 150 mg/dL (70-99) Lactic Acid Level 5.9 mmol/L (0.4-2.0) Calcium Level 8.9 mg/dL (8.5-10.1) Phosphorus Level 4.6 mg/dL (2.6-4.7) Magnesium Level 2.4 mg/dL (1.8-2.4) Glucose (Fingerstick) 228 mg/dL (70-99) 251 mg/dL (70-99) Test 02/12/19 05:54 02/12/19 06:40 02/12/19 07:11 02/12/19 08:00 Glucose (Fingerstick) 211 mg/dL (70-99) 130 mg/dL (70-99) Sodium Level 146 mmol/L (136-145) Potassium Level 3.5 mmol/L (3.5-5.1) Chloride Level 102 mmol/L (98-107) Carbon Dioxide Level 23 mmol/L (21-32) Anion Gap 21 (6-14) Blood Urea Nitrogen 122 mg/dL (8-26) Creatinine 14.3 mg/dL (0.7-1.3) Estimated GFR (Cockcroft-Gault) 3.7 Glucose Level 156 mg/dL (70-99) Lactic Acid Level 2.9 mmol/L (0.4-2.0) Calcium Level 6.8 mg/dL (8.5-10.1) Phosphorus Level 4.5 mg/dL (2.6-4.7) Magnesium Level 1.9 mg/dL (1.8-2.4) O2 Saturation 97 % (92-99) Arterial Blood pH 7.46 (7.35-7.45) Arterial Blood pCO2 at Patient Temp 32 mmHg (35-46) Arterial Blood pO2 at Patient Temp 95 mmHg (75-108) Arterial Blood HCO3 22 mmol/L (21-28) Arterial Blood Base Excess -1 mmol/L (-3-3) FiO2 2 lpm nc Test 8/7/19 08:14 02/12/19 09:23 02/12/19 10:36 02/12/19 10:40 Glucose (Fingerstick) 97 mg/dL (70-99) 145 mg/dL (70-99) 173 mg/dL (70-99) Sodium Level 145 mmol/L (136-145) Potassium Level 4.0 mmol/L (3.5-5.1) Chloride Level 104 mmol/L (98-107) Carbon Dioxide Level 23 mmol/L (21-32) Anion Gap 18 (6-14) Blood Urea Nitrogen 120 mg/dL (8-26) Creatinine 14.4 mg/dL (0.7-1.3) Estimated GFR (Cockcroft-Gault) 3.6 Glucose Level 174 mg/dL (70-99) Calcium Level 6.7 mg/dL (8.5-10.1) Phosphorus Level 4.7 mg/dL (2.6-4.7) Magnesium Level 1.7 mg/dL (1.8-2.4) Test 02/12/19 11:36 02/12/19 12:00 02/12/19 12:41 02/12/19 14:03 Glucose (Fingerstick) 183 mg/dL (70-99) 163 mg/dL (70-99) 131 mg/dL (70-99) Group A Streptococcus Rapid Negative (NEGATIVE) Test 02/12/19 14:40 02/12/19 15:13 02/12/19 16:19 02/12/19 17:23 White Blood Count 9.4 x10^3/uL (4.0-11.0) Red Blood Count 3.07 x10^6/uL (4.30-5.70) Hemoglobin 10.1 g/dL (13.0-17.5) Hematocrit 29.0 % (39.0-53.0) Mean Corpuscular Volume 95 fL (79-100) Mean Corpuscular Hemoglobin 33 pg (25-35) Mean Corpuscular Hemoglobin Concent 35 g/dL (31-37) Red Cell Distribution Width 13.1 % (11.5-14.5) Platelet Count 210 x10^3/uL (140-400) Neutrophils (%) (Auto) 85 % (31-73) Lymphocytes (%) (Auto) 5 % (24-48) Monocytes (%) (Auto) 8 % (0-9) Eosinophils (%) (Auto) 0 % (0-3) Basophils (%) (Auto) 0 % (0-3) Neutrophils # (Auto) 8.0 x10^3/uL (1.8-7.7) Lymphocytes # (Auto) 0.5 x10^3/uL (1.0-4.8) Monocytes # (Auto) 0.8 x10^3/uL (0.0-1.1) Eosinophils # (Auto) 0.0 x10^3/uL (0.0-0.7) Basophils # (Auto) 0.0 x10^3/uL (0.0-0.2) Sodium Level 143 mmol/L (136-145) Potassium Level 3.7 mmol/L (3.5-5.1) Chloride Level 103 mmol/L (98-107) Carbon Dioxide Level 23 mmol/L (21-32) Anion Gap 17 (6-14) Blood Urea Nitrogen 123 mg/dL (8-26) Creatinine 14.2 mg/dL (0.7-1.3) Estimated GFR (Cockcroft-Gault) 3.7 Glucose Level 127 mg/dL (70-99) Calcium Level 7.0 mg/dL (8.5-10.1) Phosphorus Level 3.7 mg/dL (2.6-4.7) Magnesium Level 1.7 mg/dL (1.8-2.4) Glucose (Fingerstick) 121 mg/dL (70-99) 119 mg/dL (70-99) 127 mg/dL (70-99) Test 02/12/19 18:27 02/12/19 18:37 02/12/19 21:47 02/12/19 23:39 Glucose (Fingerstick) 136 mg/dL (70-99) 200 mg/dL (70-99) 253 mg/dL (70-99) Sodium Level 140 mmol/L (136-145) Potassium Level 3.5 mmol/L (3.5-5.1) Chloride Level 99 mmol/L (98-107) Carbon Dioxide Level 31 mmol/L (21-32) Anion Gap 10 (6-14) Blood Urea Nitrogen 49 mg/dL (8-26) Creatinine 6.3 mg/dL (0.7-1.3) Estimated GFR (Cockcroft-Gault) 9.4 Glucose Level 139 mg/dL (70-99) Calcium Level 7.4 mg/dL (8.5-10.1) Phosphorus Level 2.1 mg/dL (2.6-4.7) Magnesium Level 1.5 mg/dL (1.8-2.4) Test 02/13/19 04:55 02/13/19 05:40 02/13/19 07:10 02/13/19 08:14 Influenza Type A Antigen Negative (NEGATIVE) Influenza Type B Antigen Negative (NEGATIVE) White Blood Count 9.8 x10^3/uL (4.0-11.0) Red Blood Count 3.01 x10^6/uL (4.30-5.70) Hemoglobin 9.9 g/dL (13.0-17.5) Hematocrit 28.9 % (39.0-53.0) Mean Corpuscular Volume 96 fL (79-100) Mean Corpuscular Hemoglobin 33 pg (25-35) Mean Corpuscular Hemoglobin Concent 34 g/dL (31-37) Red Cell Distribution Width 13.1 % (11.5-14.5) Platelet Count 173 x10^3/uL (140-400) Neutrophils (%) (Auto) 90 % (31-73) Lymphocytes (%) (Auto) 2 % (24-48) Monocytes (%) (Auto) 8 % (0-9) Eosinophils (%) (Auto) 0 % (0-3) Basophils (%) (Auto) 0 % (0-3) Neutrophils # (Auto) 8.8 x10^3/uL (1.8-7.7) Lymphocytes # (Auto) 0.2 x10^3/uL (1.0-4.8) Monocytes # (Auto) 0.8 x10^3/uL (0.0-1.1) Eosinophils # (Auto) 0.0 x10^3/uL (0.0-0.7) Basophils # (Auto) 0.0 x10^3/uL (0.0-0.2) Sodium Level 136 mmol/L (136-145) Potassium Level 5.2 mmol/L (3.5-5.1) Chloride Level 98 mmol/L (98-107) Carbon Dioxide Level 24 mmol/L (21-32) Anion Gap 14 (6-14) Blood Urea Nitrogen 63 mg/dL (8-26) Creatinine 8.1 mg/dL (0.7-1.3) Estimated GFR (Cockcroft-Gault) 7.0 BUN/Creatinine Ratio 8 (6-20) Glucose Level 434 mg/dL (70-99) Glucose (Fingerstick) 427 mg/dL (70-99) 383 mg/dL (70-99) 300 mg/dL (70-99) Calcium Level 7.1 mg/dL (8.5-10.1) Total Bilirubin 0.9 mg/dL (0.2-1.0) Aspartate Amino Transf (AST/SGOT) 33 U/L (15-37) Alanine Aminotransferase (ALT/SGPT) 14 U/L (16-63) Alkaline Phosphatase 96 U/L (46-116) Total Protein 5.8 g/dL (6.4-8.2) Albumin 2.1 g/dL (3.4-5.0) Albumin/Globulin Ratio 0.6 (1.0-1.7) Test 02/13/19 09:21 Glucose (Fingerstick) 228 mg/dL (70-99) Laboratory Tests Test 02/12/19 10:36 02/12/19 10:40 02/12/19 11:36 02/12/19 12:00 Glucose (Fingerstick) 173 mg/dL (70-99) 183 mg/dL (70-99) Sodium Level 145 mmol/L (136-145) Potassium Level 4.0 mmol/L (3.5-5.1) Chloride Level 104 mmol/L (98-107) Carbon Dioxide Level 23 mmol/L (21-32) Anion Gap 18 (6-14) Blood Urea Nitrogen 120 mg/dL (8-26) Creatinine 14.4 mg/dL (0.7-1.3) Estimated GFR (Cockcroft-Gault) 3.6 Glucose Level 174 mg/dL (70-99) Calcium Level 6.7 mg/dL (8.5-10.1) Phosphorus Level 4.7 mg/dL (2.6-4.7) Magnesium Level 1.7 mg/dL (1.8-2.4) Group A Streptococcus Rapid Negative (NEGATIVE) Test 02/12/19 12:41 02/12/19 14:03 02/12/19 14:40 02/12/19 15:13 Glucose (Fingerstick) 163 mg/dL (70-99) 131 mg/dL (70-99) 121 mg/dL (70-99) White Blood Count 9.4 x10^3/uL (4.0-11.0) Red Blood Count 3.07 x10^6/uL (4.30-5.70) Hemoglobin 10.1 g/dL (13.0-17.5) Hematocrit 29.0 % (39.0-53.0) Mean Corpuscular Volume 95 fL (79-100) Mean Corpuscular Hemoglobin 33 pg (25-35) Mean Corpuscular Hemoglobin Concent 35 g/dL (31-37) Red Cell Distribution Width 13.1 % (11.5-14.5) Platelet Count 210 x10^3/uL (140-400) Neutrophils (%) (Auto) 85 % (31-73) Lymphocytes (%) (Auto) 5 % (24-48) Monocytes (%) (Auto) 8 % (0-9) Eosinophils (%) (Auto) 0 % (0-3) Basophils (%) (Auto) 0 % (0-3) Neutrophils # (Auto) 8.0 x10^3/uL (1.8-7.7) Lymphocytes # (Auto) 0.5 x10^3/uL (1.0-4.8) Monocytes # (Auto) 0.8 x10^3/uL (0.0-1.1) Eosinophils # (Auto) 0.0 x10^3/uL (0.0-0.7) Basophils # (Auto) 0.0 x10^3/uL (0.0-0.2) Sodium Level 143 mmol/L (136-145) Potassium Level 3.7 mmol/L (3.5-5.1) Chloride Level 103 mmol/L (98-107) Carbon Dioxide Level 23 mmol/L (21-32) Anion Gap 17 (6-14) Blood Urea Nitrogen 123 mg/dL (8-26) Creatinine 14.2 mg/dL (0.7-1.3) Estimated GFR (Cockcroft-Gault) 3.7 Glucose Level 127 mg/dL (70-99) Calcium Level 7.0 mg/dL (8.5-10.1) Phosphorus Level 3.7 mg/dL (2.6-4.7) Magnesium Level 1.7 mg/dL (1.8-2.4) Test 02/12/19 16:19 02/12/19 17:23 02/12/19 18:27 02/12/19 18:37 Glucose (Fingerstick) 119 mg/dL (70-99) 127 mg/dL (70-99) 136 mg/dL (70-99) Sodium Level 140 mmol/L (136-145) Potassium Level 3.5 mmol/L (3.5-5.1) Chloride Level 99 mmol/L (98-107) Carbon Dioxide Level 31 mmol/L (21-32) Anion Gap 10 (6-14) Blood Urea Nitrogen 49 mg/dL (8-26) Creatinine 6.3 mg/dL (0.7-1.3) Estimated GFR (Cockcroft-Gault) 9.4 Glucose Level 139 mg/dL (70-99) Calcium Level 7.4 mg/dL (8.5-10.1) Phosphorus Level 2.1 mg/dL (2.6-4.7) Magnesium Level 1.5 mg/dL (1.8-2.4) Test 02/12/19 21:47 02/12/19 23:39 02/13/19 04:55 02/13/19 05:40 Glucose (Fingerstick) 200 mg/dL (70-99) 253 mg/dL (70-99) 427 mg/dL (70-99) Influenza Type A Antigen Negative (NEGATIVE) Influenza Type B Antigen Negative (NEGATIVE) White Blood Count 9.8 x10^3/uL (4.0-11.0) Red Blood Count 3.01 x10^6/uL (4.30-5.70) Hemoglobin 9.9 g/dL (13.0-17.5) Hematocrit 28.9 % (39.0-53.0) Mean Corpuscular Volume 96 fL (79-100) Mean Corpuscular Hemoglobin 33 pg (25-35) Mean Corpuscular Hemoglobin Concent 34 g/dL (31-37) Red Cell Distribution Width 13.1 % (11.5-14.5) Platelet Count 173 x10^3/uL (140-400) Neutrophils (%) (Auto) 90 % (31-73) Lymphocytes (%) (Auto) 2 % (24-48) Monocytes (%) (Auto) 8 % (0-9) Eosinophils (%) (Auto) 0 % (0-3) Basophils (%) (Auto) 0 % (0-3) Neutrophils # (Auto) 8.8 x10^3/uL (1.8-7.7) Lymphocytes # (Auto) 0.2 x10^3/uL (1.0-4.8) Monocytes # (Auto) 0.8 x10^3/uL (0.0-1.1) Eosinophils # (Auto) 0.0 x10^3/uL (0.0-0.7) Basophils # (Auto) 0.0 x10^3/uL (0.0-0.2) Sodium Level 136 mmol/L (136-145) Potassium Level 5.2 mmol/L (3.5-5.1) Chloride Level 98 mmol/L (98-107) Carbon Dioxide Level 24 mmol/L (21-32) Anion Gap 14 (6-14) Blood Urea Nitrogen 63 mg/dL (8-26) Creatinine 8.1 mg/dL (0.7-1.3) Estimated GFR (Cockcroft-Gault) 7.0 BUN/Creatinine Ratio 8 (6-20) Glucose Level 434 mg/dL (70-99) Calcium Level 7.1 mg/dL (8.5-10.1) Total Bilirubin 0.9 mg/dL (0.2-1.0) Aspartate Amino Transf (AST/SGOT) 33 U/L (15-37) Alanine Aminotransferase (ALT/SGPT) 14 U/L (16-63) Alkaline Phosphatase 96 U/L (46-116) Total Protein 5.8 g/dL (6.4-8.2) Albumin 2.1 g/dL (3.4-5.0) Albumin/Globulin Ratio 0.6 (1.0-1.7) Test 02/13/19 07:10 02/13/19 08:14 02/13/19 09:21 Glucose (Fingerstick) 383 mg/dL (70-99) 300 mg/dL (70-99) 228 mg/dL (70-99) Microbiology 02/12/19 Blood Culture - Preliminary, Resulted NO GROWTH AFTER 1 DAY Medications Current Medications Sodium Chloride 1,000 ml @ 1,000 mls/hr 1X ONCE IV Last administered on 02/11/19at 19:19; Start 02/11/19 at 19:15; Stop 02/11/19 at 20:14; Status DC Sodium Chloride 1,000 ml @ 1,000 mls/hr 1X ONCE IV Last administered on 02/11/19at 20:21; Start 02/11/19 at 20:00; Stop 02/11/19 at 20:59; Status DC Insulin Human Regular (HumuLIN R VIAL) 9 unit 1X ONCE SQ Last administered on 02/11/19at 20:21; Start 02/11/19 at 20:00; Stop 02/11/19 at 20:01; Status DC Insulin Human Regular 150 unit/ Sodium Chloride 151.5 ml @ 0 mls/hr CONT PRN PRN IV PER PROTOCOL Last administered on 02/13/19at 06:10; Start 02/11/19 at 20:00 Potassium Chloride/Water 100 ml @ 100 mls/hr PRN Q1HR PRN IV SEE COMMENTS; Start 02/11/19 at 20:00 Potassium Chloride/Water 100 ml @ 100 mls/hr PRN Q1HR PRN IV SEE COMMENTS; Start 02/11/19 at 20:00 Potassium Chloride/Water 100 ml @ 100 mls/hr PRN Q1HR PRN IV SEE COMMENTS; Start 02/11/19 at 20:00 Magnesium Sulfate/ Dextrose 100 ml @ 25 mls/hr PRN DAILY PRN IV SEE COMMENTS; Start 02/12/19 at 09:00 Aspirin (Aspirin Rectal Supp) 300 mg 1X ONCE OH Last administered on 02/11/19at 20:21; Start 02/11/19 at 20:00; Stop 02/11/19 at 20:03; Status DC Insulin Human Regular 150 ml @ 0 mls/hr CONT PRN PRN IV PER PROTOCOL Last administered on 02/11/19at 20:21; Start 02/11/19 at 20:15; Stop 02/11/19 at 23:00; Status DC Ondansetron HCl (Zofran) 4 mg PRN Q8HRS PRN IV NAUSEA/VOMITING; Start 02/11/19 at 20:30; Stop 02/12/19 at 20:29; Status DC Calcium Gluconate (Calcium Gluconate) 1,000 mg 1X ONCE IVP Last administered on 02/11/19at 21:29; Start 02/11/19 at 21:00; Stop 02/11/19 at 21:01; Status DC Sodium Chloride 1,000 ml @ 500 mls/hr 1X ONCE IV Last administered on 02/11/19at 21:29; Start 02/11/19 at 21:30; Stop 02/11/19 at 23:29; Status DC Lidocaine/Sodium Bicarbonate (Buffered Lidocaine 1%) 3 ml STK-MED ONCE .ROUTE ; Start 02/11/19 at 22:37; Stop 02/11/19 at 22:37; Status DC Lidocaine/Sodium Bicarbonate (Buffered Lidocaine 1%) 3 ml 1X ONCE IJ Last administered on 02/11/19at 23:10; Start 02/11/19 at 23:00; Stop 02/11/19 at 23:01; Status DC Sodium Chloride 1,000 ml @ 1,000 mls/hr Q1H PRN IV hypotension; Start 02/11/19 at 23:23; Stop 02/12/19 at 05:22; Status DC Sodium Chloride 1,000 ml @ 400 mls/hr Q2H30M PRN IV PATENCY; Start 02/11/19 at 23:23; Stop 02/12/19 at 11:22; Status DC Info (PHARMACY MONITORING -- do not chart) 1 each PRN DAILY PRN MC SEE COMMENTS; Start 02/11/19 at 23:30; Status UNV Info (PHARMACY MONITORING -- do not chart) 1 each PRN DAILY PRN MC SEE COMMENTS; Start 02/11/19 at 23:30; Stop 02/12/19 at 18:07; Status DC Sodium Chloride 1,000 ml @ 250 mls/hr Q4H IV Last administered on 02/12/19at 00:20; Start 02/12/19 at 00:14; Stop 02/12/19 at 01:32; Status DC Piperacillin Sod/ Tazobactam Sod 3.375 gm/Sodium Chloride 50 ml @ 100 mls/hr Q6HRS IV ; Start 02/12/19 at 01:00; Status UNV Piperacillin Sod/ Tazobactam Sod 2.25 gm/Sodium Chloride 50 ml @ 100 mls/hr Q8HRS IV Last administered on 02/13/19at 05:44; Start 02/12/19 at 01:00 Dextrose/Sodium Chloride 1,000 ml @ 250 mls/hr Q4H IV Last administered on 02/12/19at 15:39; Start 02/12/19 at 01:32; Stop 02/12/19 at 21:05; Status DC Lorazepam (Ativan Inj) 1 mg PRN Q10MIN PRN IV SEIZURE; Start 02/12/19 at 03:00 Sodium Chloride 250 ml @ 250 mls/hr 1X ONCE IV Last administered on 02/12/19at 05:25; Start 02/12/19 at 05:00; Stop 02/12/19 at 05:59; Status DC Azithromycin 500 mg/Sodium Chloride 250 ml @ 250 mls/hr 1X ONCE IV Last administered on 02/12/19at 05:25; Start 02/12/19 at 05:00; Stop 02/12/19 at 05:59; Status DC Potassium Chloride/Water 50 ml @ 25 mls/hr Q2H IV Last administered on 02/12/19at 10:06; Start 02/12/19 at 08:00; Stop 02/12/19 at 11:59; Status DC Azithromycin 250 ml @ 250 mls/hr 1X ONCE IV ; Start 02/13/19 at 05:00; Stop 02/12/19 at 11:37; Status DC Azithromycin 500 mg/Sodium Chloride 250 ml @ 250 mls/hr 1X ONCE IV Last administered on 02/13/19at 04:33; Start 02/13/19 at 05:00; Stop 02/13/19 at 05:59; Status DC Potassium Chloride/Water 50 ml @ 25 mls/hr Q2H IV Last administered on 02/12/19at 18:18; Start 02/12/19 at 16:00; Stop 02/12/19 at 19:59; Status DC Sodium Chloride 1,000 ml @ 1,000 mls/hr Q1H PRN IV hypotension; Start 02/12/19 at 15:00; Stop 02/12/19 at 20:59; Status DC Sodium Chloride (Normal Saline Flush) 10 ml 1X PRN PRN IV AP catheter pack; Start 02/12/19 at 15:00; Stop 02/13/19 at 14:59 Sodium Chloride (Normal Saline Flush) 10 ml 1X PRN PRN IV NON CLINICAL ADVISOR catheter pack; Start 02/12/19 at 15:00; Stop 02/13/19 at 14:59 Sodium Chloride 1,000 ml @ 400 mls/hr Q2H30M PRN IV PATENCY; Start 02/12/19 at 15:00; Stop 02/13/19 at 02:59; Status DC Info (PHARMACY MONITORING -- do not chart) 1 each PRN DAILY PRN MC SEE COMMENTS; Start 02/12/19 at 18:00; Stop 02/12/19 at 18:07; Status DC Info (PHARMACY MONITORING -- do not chart) 1 each PRN DAILY PRN MC SEE COMMENTS; Start 02/12/19 at 18:00 Sodium Chloride 1,000 ml @ 75 mls/hr [id number] IV Last administered on 02/13/19at 08:40; Start 02/12/19 at 20:45 Dextrose (Dextrose 50%-Water Syringe) 12.5 gm PRN Q15MIN PRN IV SEE COMMENTS; Start 02/12/19 at 20:45 Hydralazine HCl (Apresoline Inj) 10 mg PRN Q4HRS PRN IVP ELEVATED BP, SEE COMMENTS Last administered on 02/12/19at 20:49; Start 02/12/19 at 20:45 Insulin Human Lispro (HumaLOG) 0-5 UNITS Q6HRS SQ Last administered on 02/12/19at 23:40; Start 02/13/19 at 00:00 Albuterol Sulfate (Ventolin Neb Soln) 2.5 mg 1X ONCE NEB Last administered on 02/13/19at 01:01; Start 02/13/19 at 01:00; Stop 02/13/19 at 01:01; Status DC Ondansetron HCl (Zofran) 4 mg PRN Q6HRS PRN IV NAUSEA/VOMITING Last administered on 02/13/19at 03:39; Start 02/13/19 at 03:30 Active Scripts Active Reported Metformin Hcl 500 Mg Tablet 500 Mg PO BIDWMEALS Vitals/I & O Vital Sign - Last 24 Hours 02/12/19 02/12/19 02/12/19 02/12/19 11:00 12:00 12:00 13:00 Temp 99.2 99.2 Pulse 104 101 105 Resp 21 13 20 B/P (MAP) 163/80 (107) 149/76 (100) 146/75 (98) Pulse Ox 94 95 96 O2 Delivery Nasal Cannula Nasal Cannula Nasal Cannula Nasal Cannula O2 Flow Rate 3.0 3.0 3.0 3.0 02/12/19 02/12/19 02/12/19 02/12/19 14:00 15:00 16:00 16:00 Temp 98.8 98.8 Pulse 101 101 96 Resp 17 19 23 B/P (MAP) 149/73 (98) 148/80 (102) 144/68 (93) Pulse Ox 94 95 96 O2 Delivery Nasal Cannula Nasal Cannula Nasal Cannula Nasal Cannula O2 Flow Rate 3.0 3.0 3.0 3.0 02/12/19 02/12/19 02/12/19 02/12/19 17:00 18:00 19:00 20:00 Pulse 96 97 100 Resp 12 13 14 B/P (MAP) 158/78 (104) 151/79 (103) 165/89 (114) Pulse Ox 96 96 94 O2 Delivery Nasal Cannula Nasal Cannula Nasal Cannula Nasal Cannula O2 Flow Rate 3.0 2.0 2.0 2.0 02/12/19 02/12/19 02/12/19 02/12/19 20:00 20:49 21:00 22:00 Temp 99.1 99.8 99.1 99.8 Pulse 102 107 110 118 Resp 18 20 22 B/P (MAP) 162/88 (112) 162/88 140/69 (92) 136/70 (92) Pulse Ox 95 95 94 O2 Delivery Nasal Cannula Nasal Cannula Nasal Cannula O2 Flow Rate 2.0 2.0 2.0 02/12/19 02/12/19 02/13/19 02/13/19 23:00 23:42 00:00 01:00 Temp 100.0 100.0 Pulse 114 118 125 Resp 18 22 25 B/P (MAP) 118/65 (82) 134/79 (97) 110/62 (78) Pulse Ox 95 95 90 O2 Delivery Nasal Cannula Nasal Cannula Nasal Cannula Nasal Cannula O2 Flow Rate 2.0 2.0 2.0 4.0 02/13/19 02/13/19 02/13/1919 02:00 03:00 03:31 04:00 Temp 100.8 100.1 100.8 100.1 Pulse 114 106 115 Resp 24 22 22 B/P (MAP) 114/71 (85) 140/77 (98) 149/68 (95) Pulse Ox 96 96 95 O2 Delivery Venturi Mask Venturi Mask Venturi Mask Venturi Mask 02/13/19 02/13/19 02/13/19 02/13/19 05:00 06:00 07:00 08:00 Temp 100.7 100.7 Pulse 116 110 111 Resp 30 28 30 B/P (MAP) 163/78 (106) 154/70 (98) 155/75 (101) Pulse Ox 98 97 96 O2 Delivery Venturi Mask Venturi Mask Venturi Mask Nasal Cannula O2 Flow Rate 15.0 02/13/19 02/13/19 08:00 09:00 Temp 99.0 99.0 Pulse 112 100 Resp 26 18 B/P (MAP) 166/84 (111) 135/74 (94) Pulse Ox 97 99 O2 Delivery Venturi Mask Venturi Mask Intake and Output 02/12/19 02/12/19 02/13/19 14:59 22:59 06:59 Intake Total 50 ml 2812 ml 975 ml Output Total 95 ml 125 ml 115 ml Balance -45 ml 2687 ml 860 ml CITLALLI GONZALEZ MD Feb 13, 2019 10:23
--- NOTE | 2019-02-13 10:49 | PDOC ---
SUBJECTIVE ROS More alert , No new complaints OBJECTIVE Vital Signs Vital Signs Date Time Temp Pulse Resp B/P (MAP) Pulse Ox O2 Delivery O2 Flow Rate FiO2 02/13/19 09:00 100 18 135/74 (94) 99 Venturi Mask 02/13/19 08:00 99.0 99.0 02/13/19 08:00 15.0 I & 0 Intake and Output 02/13/19 07:00 Intake Total 3837 ml Output Total 335 ml Balance 3502 ml IV Total 3837 ml Output Urine Total 335 ml # Bowel Movements 2 PHYSICAL EXAM Physical Exam GEN: NAD HEEN OM moist, o2 by NC NECK: Supple CVS: No Rub RESP: CTA, No Acc. Muscle Use GI: BS + ve, NO Bruit, Non Tender, Non Distended : No CVA tenderness, No Suprapubic Tenderness, [place] + Neuro - Non verbal Skin No rash DIAGNOSIS/ASSESSMENT Assessment & Plan SARAH - ATN , DKA BUN/CR at presentation 200/20 HD x2 on 02/11 and 02/12 - E-Lytes stable, UOP marginal Monitor, Hold off HD today , Hyperkalemia- 2/2 DKA, SARAH Mild, still high BG Metabolic acidosis- 2/2 dka Improved Hypernatremia- resolved High Blood glucose DM/ DKA- Per primary Discussed A/P with RN at bedside COMMENT/RELEVANT DATA Meds Current Medications Medications (Trade) Dose Ordered Sig/Ismael Start Time Stop Time Status Last Admin Dose Admin Albuterol Sulfate (Ventolin Neb Soln) 2.5 mg 1X ONCE 02/13/19 01:00 02/13/19 01:01 DC 02/13/19 01:01 2.5 MG Aspirin (Aspirin Rectal Supp) 300 mg 1X ONCE 02/11/19 20:00 02/11/19 20:03 DC 02/11/19 20:21 300 MG Azithromycin 250 ml @ 250 mls/hr 1X ONCE 02/13/19 05:00 02/12/19 11:37 DC Azithromycin 500 mg/Sodium Chloride 250 ml @ 250 mls/hr 1X ONCE 02/13/19 05:00 02/13/19 05:59 DC 02/13/19 04:33 250 MLS/HR Calcium Gluconate (Calcium Gluconate) 1,000 mg 1X ONCE 02/11/19 21:00 02/11/19 21:01 DC 02/11/19 21:29 1,000 MG Dextrose (Dextrose 50%-Water Syringe) 12.5 gm PRN Q15MIN PRN 02/12/19 20:45 Dextrose/Sodium Chloride 1,000 ml @ 250 mls/hr Q4H 02/12/19 01:32 02/12/19 21:05 DC 02/12/19 15:39 250 MLS/HR Hydralazine HCl (Apresoline Inj) 10 mg PRN Q4HRS PRN 02/12/19 20:45 02/12/19 20:49 10 MG Info (PHARMACY MONITORING -- do not chart) 1 each PRN DAILY PRN 02/12/19 18:00 Insulin Human Lispro (HumaLOG) 0-5 UNITS Q6HRS 02/13/19 00:00 02/12/19 23:40 2 UNITS Insulin Human Regular 150 ml @ 0 mls/hr CONT PRN PRN 02/11/19 20:15 02/11/19 23:00 DC 02/11/19 20:21 1 MLS/HR Insulin Human Regular (HumuLIN R VIAL) 9 unit 1X ONCE 02/11/19 20:00 02/11/19 20:01 DC 02/11/19 20:21 9 UNIT Insulin Human Regular 150 unit/ Sodium Chloride 151.5 ml @ 0 mls/hr CONT PRN PRN 02/11/19 20:00 02/13/19 06:10 7 MLS/HR Lidocaine/Sodium Bicarbonate (Buffered Lidocaine 1%) 3 ml 1X ONCE 02/11/19 23:00 02/11/19 23:01 DC 02/11/19 23:10 4 ML Lorazepam (Ativan Inj) 1 mg PRN Q10MIN PRN 02/12/19 03:00 Magnesium Sulfate/ Dextrose 100 ml @ 25 mls/hr PRN DAILY PRN 02/12/19 09:00 Ondansetron HCl (Zofran) 4 mg PRN Q6HRS PRN 02/13/19 03:30 02/13/19 03:39 4 MG Piperacillin Sod/ Tazobactam Sod 2.25 gm/Sodium Chloride 50 ml @ 100 mls/hr Q8HRS 02/12/19 01:00 02/13/19 05:44 100 MLS/HR Piperacillin Sod/ Tazobactam Sod 3.375 gm/Sodium Chloride 50 ml @ 100 mls/hr Q6HRS 02/12/19 01:00 UNV Potassium Chloride/Water 50 ml @ 25 mls/hr Q2H 02/12/19 16:00 02/12/19 19:59 DC 02/12/19 18:18 25 MLS/HR Sodium Chloride 1,000 ml @ 75 mls/hr [id number] 02/12/19 20:45 02/13/19 08:40 75 MLS/HR Sodium Chloride (Normal Saline Flush) 10 ml 1X PRN PRN 02/12/19 15:00 02/13/19 14:59 Lab Laboratory Tests Test 02/12/19 11:36 02/12/19 12:00 02/12/19 12:41 02/12/19 14:03 Glucose (Fingerstick) 183 mg/dL (70-99) 163 mg/dL (70-99) 131 mg/dL (70-99) Group A Streptococcus Rapid Negative (NEGATIVE) Test 02/12/19 14:40 02/12/19 15:13 02/12/19 16:19 02/12/19 17:23 White Blood Count 9.4 x10^3/uL (4.0-11.0) Red Blood Count 3.07 x10^6/uL (4.30-5.70) Hemoglobin 10.1 g/dL (13.0-17.5) Hematocrit 29.0 % (39.0-53.0) Mean Corpuscular Volume 95 fL (79-100) Mean Corpuscular Hemoglobin 33 pg (25-35) Mean Corpuscular Hemoglobin Concent 35 g/dL (31-37) Red Cell Distribution Width 13.1 % (11.5-14.5) Platelet Count 210 x10^3/uL (140-400) Neutrophils (%) (Auto) 85 % (31-73) Lymphocytes (%) (Auto) 5 % (24-48) Monocytes (%) (Auto) 8 % (0-9) Eosinophils (%) (Auto) 0 % (0-3) Basophils (%) (Auto) 0 % (0-3) Neutrophils # (Auto) 8.0 x10^3/uL (1.8-7.7) Lymphocytes # (Auto) 0.5 x10^3/uL (1.0-4.8) Monocytes # (Auto) 0.8 x10^3/uL (0.0-1.1) Eosinophils # (Auto) 0.0 x10^3/uL (0.0-0.7) Basophils # (Auto) 0.0 x10^3/uL (0.0-0.2) Sodium Level 143 mmol/L (136-145) Potassium Level 3.7 mmol/L (3.5-5.1) Chloride Level 103 mmol/L (98-107) Carbon Dioxide Level 23 mmol/L (21-32) Anion Gap 17 (6-14) Blood Urea Nitrogen 123 mg/dL (8-26) Creatinine 14.2 mg/dL (0.7-1.3) Estimated GFR (Cockcroft-Gault) 3.7 Glucose Level 127 mg/dL (70-99) Calcium Level 7.0 mg/dL (8.5-10.1) Phosphorus Level 3.7 mg/dL (2.6-4.7) Magnesium Level 1.7 mg/dL (1.8-2.4) Glucose (Fingerstick) 121 mg/dL (70-99) 119 mg/dL (70-99) 127 mg/dL (70-99) Test 02/12/19 18:27 02/12/19 18:37 02/12/19 21:47 02/12/19 23:39 Glucose (Fingerstick) 136 mg/dL (70-99) 200 mg/dL (70-99) 253 mg/dL (70-99) Sodium Level 140 mmol/L (136-145) Potassium Level 3.5 mmol/L (3.5-5.1) Chloride Level 99 mmol/L (98-107) Carbon Dioxide Level 31 mmol/L (21-32) Anion Gap 10 (6-14) Blood Urea Nitrogen 49 mg/dL (8-26) Creatinine 6.3 mg/dL (0.7-1.3) Estimated GFR (Cockcroft-Gault) 9.4 Glucose Level 139 mg/dL (70-99) Calcium Level 7.4 mg/dL (8.5-10.1) Phosphorus Level 2.1 mg/dL (2.6-4.7) Magnesium Level 1.5 mg/dL (1.8-2.4) Test 02/13/19 04:55 02/13/19 05:40 02/13/19 07:10 02/13/19 08:14 Influenza Type A Antigen Negative (NEGATIVE) Influenza Type B Antigen Negative (NEGATIVE) White Blood Count 9.8 x10^3/uL (4.0-11.0) Red Blood Count 3.01 x10^6/uL (4.30-5.70) Hemoglobin 9.9 g/dL (13.0-17.5) Hematocrit 28.9 % (39.0-53.0) Mean Corpuscular Volume 96 fL (79-100) Mean Corpuscular Hemoglobin 33 pg (25-35) Mean Corpuscular Hemoglobin Concent 34 g/dL (31-37) Red Cell Distribution Width 13.1 % (11.5-14.5) Platelet Count 173 x10^3/uL (140-400) Neutrophils (%) (Auto) 90 % (31-73) Lymphocytes (%) (Auto) 2 % (24-48) Monocytes (%) (Auto) 8 % (0-9) Eosinophils (%) (Auto) 0 % (0-3) Basophils (%) (Auto) 0 % (0-3) Neutrophils # (Auto) 8.8 x10^3/uL (1.8-7.7) Lymphocytes # (Auto) 0.2 x10^3/uL (1.0-4.8) Monocytes # (Auto) 0.8 x10^3/uL (0.0-1.1) Eosinophils # (Auto) 0.0 x10^3/uL (0.0-0.7) Basophils # (Auto) 0.0 x10^3/uL (0.0-0.2) Sodium Level 136 mmol/L (136-145) Potassium Level 5.2 mmol/L (3.5-5.1) Chloride Level 98 mmol/L (98-107) Carbon Dioxide Level 24 mmol/L (21-32) Anion Gap 14 (6-14) Blood Urea Nitrogen 63 mg/dL (8-26) Creatinine 8.1 mg/dL (0.7-1.3) Estimated GFR (Cockcroft-Gault) 7.0 BUN/Creatinine Ratio 8 (6-20) Glucose Level 434 mg/dL (70-99) Glucose (Fingerstick) 427 mg/dL (70-99) 383 mg/dL (70-99) 300 mg/dL (70-99) Calcium Level 7.1 mg/dL (8.5-10.1) Total Bilirubin 0.9 mg/dL (0.2-1.0) Aspartate Amino Transf (AST/SGOT) 33 U/L (15-37) Alanine Aminotransferase (ALT/SGPT) 14 U/L (16-63) Alkaline Phosphatase 96 U/L (46-116) Total Protein 5.8 g/dL (6.4-8.2) Albumin 2.1 g/dL (3.4-5.0) Albumin/Globulin Ratio 0.6 (1.0-1.7) Test 02/13/19 09:21 02/13/19 10:21 Glucose (Fingerstick) 228 mg/dL (70-99) 114 mg/dL (70-99) Results All relevant outside records, renal labs, imaging studies, telemetry/EKG's were reviewed. ROHIT KNOWLES MD Feb 13, 2019 10:49
--- NOTE | 2019-02-13 11:39 | PDOC ---
[employer] PROGRESS NOTE Chief Complaint Chief Complaint Acute DKA Altered mental status Seizure SARAH Hyperkalemia T2DM Leukocytosis Lactic acidosis History of Present Illness History of Present Illness 02/13/19 Pt seen and examined in ICU Venti mask at 50% O2 Pt sitting up in bed marked improvement Anion gap trending down (21, 14 today) Vitals/I&O Vitals/I&O: Vital Signs Date Time Temp Pulse Resp B/P (MAP) Pulse Ox O2 Delivery O2 Flow Rate FiO2 02/13/19 09:00 100 18 135/74 (94) 99 Venturi Mask 02/13/19 08:00 99.0 99.0 02/13/19 08:00 15.0 I & O 02/12/19 02/12/19 02/13/19 15:00 23:00 07:00 Intake Total 50 ml 2812 ml 975 ml Output Total 95 ml 130 ml 110 ml Balance -45 ml 2682 ml 865 ml Physical Exam Physical Exam: GENERAL: Propped up in bed, alert, NAD HEENT: Pupils equally round. Oral cavity clear. NECK: Supple. LUNGS: Improved aeration, nonlabored. HEART: S1 and S2. ABDOMEN: Nondistended, soft, no guarding. Bowel sounds present. GENITOURINARY: Indwelling Gresham in place. EXTREMITIES: No gross edema or cyanosis. SKIN: Warm to touch without signs of rash. NEUROLOGIC: ALert, answering simple questions appropriately RIJ/HDC (8-6) without signs of any complications. PIV General: Alert, Oriented X3, Cooperative, No acute distress, Other (non-verbal ) Heart: Regular rate, Other (distant heart tones) Lungs: Crackles Abdomen: Soft, No tenderness Extremities: No clubbing, No edema, Normal pulses Skin: No breakdown, No significant lesion Labs Labs: Laboratory Tests Test 02/12/19 11:36 02/12/19 12:00 02/12/19 12:41 02/12/19 14:03 Glucose (Fingerstick) 183 mg/dL (70-99) 163 mg/dL (70-99) 131 mg/dL (70-99) Group A Streptococcus Rapid Negative (NEGATIVE) Test 02/12/19 14:40 02/12/19 15:13 02/12/19 16:19 02/12/19 17:23 White Blood Count 9.4 x10^3/uL (4.0-11.0) Red Blood Count 3.07 x10^6/uL (4.30-5.70) Hemoglobin 10.1 g/dL (13.0-17.5) Hematocrit 29.0 % (39.0-53.0) Mean Corpuscular Volume 95 fL (79-100) Mean Corpuscular Hemoglobin 33 pg (25-35) Mean Corpuscular Hemoglobin Concent 35 g/dL (31-37) Red Cell Distribution Width 13.1 % (11.5-14.5) Platelet Count 210 x10^3/uL (140-400) Neutrophils (%) (Auto) 85 % (31-73) Lymphocytes (%) (Auto) 5 % (24-48) Monocytes (%) (Auto) 8 % (0-9) Eosinophils (%) (Auto) 0 % (0-3) Basophils (%) (Auto) 0 % (0-3) Neutrophils # (Auto) 8.0 x10^3/uL (1.8-7.7) Lymphocytes # (Auto) 0.5 x10^3/uL (1.0-4.8) Monocytes # (Auto) 0.8 x10^3/uL (0.0-1.1) Eosinophils # (Auto) 0.0 x10^3/uL (0.0-0.7) Basophils # (Auto) 0.0 x10^3/uL (0.0-0.2) Sodium Level 143 mmol/L (136-145) Potassium Level 3.7 mmol/L (3.5-5.1) Chloride Level 103 mmol/L (98-107) Carbon Dioxide Level 23 mmol/L (21-32) Anion Gap 17 (6-14) Blood Urea Nitrogen 123 mg/dL (8-26) Creatinine 14.2 mg/dL (0.7-1.3) Estimated GFR (Cockcroft-Gault) 3.7 Glucose Level 127 mg/dL (70-99) Calcium Level 7.0 mg/dL (8.5-10.1) Phosphorus Level 3.7 mg/dL (2.6-4.7) Magnesium Level 1.7 mg/dL (1.8-2.4) Glucose (Fingerstick) 121 mg/dL (70-99) 119 mg/dL (70-99) 127 mg/dL (70-99) Test 02/12/19 18:27 02/12/19 18:37 02/12/19 21:47 02/12/19 23:39 Glucose (Fingerstick) 136 mg/dL (70-99) 200 mg/dL (70-99) 253 mg/dL (70-99) Sodium Level 140 mmol/L (136-145) Potassium Level 3.5 mmol/L (3.5-5.1) Chloride Level 99 mmol/L (98-107) Carbon Dioxide Level 31 mmol/L (21-32) Anion Gap 10 (6-14) Blood Urea Nitrogen 49 mg/dL (8-26) Creatinine 6.3 mg/dL (0.7-1.3) Estimated GFR (Cockcroft-Gault) 9.4 Glucose Level 139 mg/dL (70-99) Calcium Level 7.4 mg/dL (8.5-10.1) Phosphorus Level 2.1 mg/dL (2.6-4.7) Magnesium Level 1.5 mg/dL (1.8-2.4) Test 02/13/19 04:55 02/13/19 05:40 02/13/19 07:10 02/13/19 08:14 Influenza Type A Antigen Negative (NEGATIVE) Influenza Type B Antigen Negative (NEGATIVE) White Blood Count 9.8 x10^3/uL (4.0-11.0) Red Blood Count 3.01 x10^6/uL (4.30-5.70) Hemoglobin 9.9 g/dL (13.0-17.5) Hematocrit 28.9 % (39.0-53.0) Mean Corpuscular Volume 96 fL (79-100) Mean Corpuscular Hemoglobin 33 pg (25-35) Mean Corpuscular Hemoglobin Concent 34 g/dL (31-37) Red Cell Distribution Width 13.1 % (11.5-14.5) Platelet Count 173 x10^3/uL (140-400) Neutrophils (%) (Auto) 90 % (31-73) Lymphocytes (%) (Auto) 2 % (24-48) Monocytes (%) (Auto) 8 % (0-9) Eosinophils (%) (Auto) 0 % (0-3) Basophils (%) (Auto) 0 % (0-3) Neutrophils # (Auto) 8.8 x10^3/uL (1.8-7.7) Lymphocytes # (Auto) 0.2 x10^3/uL (1.0-4.8) Monocytes # (Auto) 0.8 x10^3/uL (0.0-1.1) Eosinophils # (Auto) 0.0 x10^3/uL (0.0-0.7) Basophils # (Auto) 0.0 x10^3/uL (0.0-0.2) Sodium Level 136 mmol/L (136-145) Potassium Level 5.2 mmol/L (3.5-5.1) Chloride Level 98 mmol/L (98-107) Carbon Dioxide Level 24 mmol/L (21-32) Anion Gap 14 (6-14) Blood Urea Nitrogen 63 mg/dL (8-26) Creatinine 8.1 mg/dL (0.7-1.3) Estimated GFR (Cockcroft-Gault) 7.0 BUN/Creatinine Ratio 8 (6-20) Glucose Level 434 mg/dL (70-99) Glucose (Fingerstick) 427 mg/dL (70-99) 383 mg/dL (70-99) 300 mg/dL (70-99) Calcium Level 7.1 mg/dL (8.5-10.1) Total Bilirubin 0.9 mg/dL (0.2-1.0) Aspartate Amino Transf (AST/SGOT) 33 U/L (15-37) Alanine Aminotransferase (ALT/SGPT) 14 U/L (16-63) Alkaline Phosphatase 96 U/L (46-116) Total Protein 5.8 g/dL (6.4-8.2) Albumin 2.1 g/dL (3.4-5.0) Albumin/Globulin Ratio 0.6 (1.0-1.7) Test 02/13/19 09:21 02/13/19 10:21 Glucose (Fingerstick) 228 mg/dL (70-99) 114 mg/dL (70-99) Review of Systems Review of Systems: Denies RAMIREZ Denies N/V/D Assessment and Plan Assessmemt and Plan Problems Medical Problems: (1) DKA (diabetic ketoacidoses) Status: Acute (2) Elevated troponin Status: Acute (3) Renal failure Status: Acute Assessment Acute DKA Altered mental status Seizure SARAH Hyperkalemia T2DM Leukocytosis Lactic acidosis Plan ICU monitoring Aspiration protocol IV zosyn IV insulin IV fluids HD per nephrology Scapolamine patch Appreciate subspecialist input Comment Review of Relevant I have reviewed the following items mindy (where applicable) has been applied. Medications: Current Medications Medications (Trade) Dose Ordered Sig/Ismael Route PRN Reason Start Time Stop Time Status Last Admin Dose Admin Azithromycin 500 mg/Sodium Chloride 250 ml @ 250 mls/hr 1X ONCE IV 02/13/19 05:00 02/13/19 05:59 DC 02/13/19 04:33 Potassium Chloride/Water 50 ml @ 25 mls/hr Q2H IV 02/12/19 16:00 02/12/19 19:59 DC 02/12/19 18:18 Sodium Chloride 1,000 ml @ 75 mls/hr [id number] IV 02/12/19 20:45 02/13/19 08:40 Hydralazine HCl (Apresoline Inj) 10 mg PRN Q4HRS PRN IVP ELEVATED BP, SEE COMMENTS 02/12/19 20:45 02/12/19 20:49 Insulin Human Lispro (HumaLOG) 0-5 UNITS Q6HRS SQ 02/13/19 00:00 02/12/19 23:40 Albuterol Sulfate (Ventolin Neb Soln) 2.5 mg 1X ONCE NEB 02/13/19 01:00 02/13/19 01:01 DC 02/13/19 01:01 Ondansetron HCl (Zofran) 4 mg PRN Q6HRS PRN IV NAUSEA/VOMITING 02/13/19 03:30 02/13/19 03:39 MONIQUE SIERRA III DO Feb 13, 2019 11:39
--- NOTE | 2019-02-13 11:43 | RAD ---
EXAM: Renal sonogram. HISTORY: Renal insufficiency. TECHNIQUE: Sonographic imaging of the kidneys and bladder was performed. COMPARISON: None. FINDINGS: The right kidney measures 11.3 cm [id number]. The left kidney measures 10.4 cm [id number]. No solid or cystic renal lesion is seen. There is no hydronephrosis. There is a Gresham catheter within a decompressed bladder. The left kidney is not well seen due to respiratory motion. IMPRESSION: Sonographically unremarkable kidneys, with slightly limited evaluation of the left kidney due to respiratory motion. Electronically signed by: Kaya Stone MD (02/13/2019 11:40 AM) [place] [id number]
[2019-02-13] MEDS ORDERED: SCOPOLAMINE 1.5MG PATCH. TD ONE (11:45)
--- NOTE | 2019-02-13 13:28 | PDOC ---
CARDIOLOGY PROGRESS NOTE SUBJECTIVE: No acute events overnight. OBJECTIVE: Vital Signs/I&O: Vital Signs Date Time Temp Pulse Resp B/P (MAP) Pulse Ox O2 Delivery O2 Flow Rate FiO2 02/13/19 09:00 100 18 135/74 (94) 99 Venturi Mask 02/13/19 08:00 99.0 99.0 02/13/19 08:00 15.0 I & O 02/12/19 02/12/19 02/13/19 15:00 23:00 07:00 Intake Total 50 ml 2812 ml 975 ml Output Total 95 ml 130 ml 110 ml Balance -45 ml 2682 ml 865 ml Objective: Cardiac; RRR, no m/r/g Lungs: bilateral rhonchi soft abd no edema. 2+ pulses CURRENT MEDICATIONS: No present cardiac meds. Other meds reviewed. DIAGNOSTIC TESTING: Labs: Cr improved. Blood sugars labile Tele unremarkable. ASSESSMENT: 1. Elevated troponin 2. Diastolic HF due to acute kidney injury 3. Aspiration 4. Seizure disorder PLAN: 1. Continue supportive care for now. 2. Echo stable. No further CV testing needed at this time. 3. F/u on an outpt basis for cardiac risk stratification CHANNING CERDA MD Feb 13, 2019 13:28
--- NOTE | 2019-02-13 16:57 | NUR ---
Motor ,cerebellar cerebral functions intact this afternoon. Communication w all MDs and mother w necessary questions answered. No dialysis 02/13. AM labs will determines am care. BP down when sound asleep(see flow sheet for specifics.) Remains NPO at this time. Oral secretions diminished ,no emesis this afternoon
[2019-02-14] VITALS (24 sets, daily range): BP systolic 102–180; BP diastolic 58–92
[2019-02-14] MEDS: INSULIN LISPRO 300 UNITS/3 ML INSULN.PEN. SQ SCH ×4 (00:33→18:00)
[2019-02-14] MEDS ORDERED: AZITHROMYCIN 500 MG in IV NORMAL SALINE 250ML 250 ML IV ONE (05:00)
[2019-02-14] MEDS: PIPERACILLIN/TAZOBACTAM 2.25 GM in IV NORMAL SALINE 50ML 50 ML IV SCH ×3 (05:54→22:33)
[2019-02-14 06:40] LABS: CALCIUM 7.5 mg/dL (8.5-10.1); GFR 5.5; POTASSIUM 4.9 mmol/L (3.5-5.1)
[2019-02-14 07:18] LABS: BASO % 0 % (0-3); EOS # 0.1 x10^3/uL (0.0-0.7); EOS % 1 % (0-3); HEMATOCRIT 26.5 % (39.0-53.0); LYMPH # 0.3 x10^3/uL (1.0-4.8); LYMPH % 3 % (24-48); MEAN CORPUSCULAR HEMOGLOBIN 33 pg (25-35); MEAN CORPUSCULAR HGB CONC 34 g/dL (31-37); MEAN CORPUSCULAR VOLUME 97 fL (79-100); MONO # 0.8 x10^3/uL (0.0-1.1); MONO % 8 % (0-9); NEUT # 8.2 x10^3/uL (1.8-7.7); NEUT % 87 % (31-73); PLATELET COUNT 154 x10^3/uL (140-400); RED BLOOD COUNT 2.73 x10^6/uL (4.30-5.70); RED CELL DISTRIBUTION WIDTH 12.9 % (11.5-14.5); WHITE BLOOD COUNT 9.4 x10^3/uL (4.0-11.0)
--- NOTE | 2019-02-14 09:11 | PDOC ---
SUBJECTIVE ROS alert , answering questions appropriately OBJECTIVE Vital Signs Vital Signs Date Time Temp Pulse Resp B/P (MAP) Pulse Ox O2 Delivery O2 Flow Rate FiO2 02/14/19 08:00 98.3 68 15 119/64 (82) Nasal Cannula 4.0 98.3 02/14/19 06:00 98 I & 0 Intake and Output 02/14/19 06:59 Intake Total 2140 ml Output Total 425 ml Balance 1715 ml Intake Oral 0 ml IV Total 2140 ml Output Urine Total 425 ml PHYSICAL EXAM Physical Exam GEN: NAD , propped up in bed HEEN OM moist, o2 by NC NECK: Supple CVS: No Rub RESP: CTA, No Acc. Muscle Use GI: BS + ve, NO Bruit, Non Tender, Non Distended : No CVA tenderness, No Suprapubic Tenderness, [place] + Neuro - AxOx 3 Skin No rash DIAGNOSIS/ASSESSMENT Assessment & Plan SARAH - ATN , DKA BUN/CR at presentation 200/20 HD x2 on 02/11 and 02/12 - E-Lytes stable, UOP some improvement , monitor HD today as ordered, Kade Beauchamp Hyperkalemia- 2/2 DKA, SARAH Normal K Metabolic acidosis- 2/2 dka Improved Hypernatremia- resolved DM/ DKA- Per primary Discussed A/P pt, family and RN at bedside COMMENT/RELEVANT DATA Meds Current Medications Medications (Trade) Dose Ordered Sig/Ismael Start Time Stop Time Status Last Admin Dose Admin Albuterol Sulfate (Ventolin Neb Soln) 2.5 mg 1X ONCE 02/13/19 01:00 02/13/19 01:01 DC 02/13/19 01:01 2.5 MG Aspirin (Aspirin Rectal Supp) 300 mg 1X ONCE 02/11/19 20:00 02/11/19 20:03 DC 02/11/19 20:21 300 MG Azithromycin 250 ml @ 250 mls/hr 1X ONCE 02/13/19 05:00 02/12/19 11:37 DC Azithromycin 500 mg/Sodium Chloride 250 ml @ 250 mls/hr 1X ONCE 02/14/19 05:00 02/14/19 05:59 DC 02/14/19 04:32 250 MLS/HR Calcium Gluconate (Calcium Gluconate) 1,000 mg 1X ONCE 02/11/19 21:00 02/11/19 21:01 DC 02/11/19 21:29 1,000 MG Dextrose (Dextrose 50%-Water Syringe) 12.5 gm PRN Q15MIN PRN 02/12/19 20:45 02/13/19 11:44 12.5 GM Dextrose/Sodium Chloride 1,000 ml @ 250 mls/hr Q4H 02/12/19 01:32 02/12/19 21:05 DC 02/12/19 15:39 250 MLS/HR Hydralazine HCl (Apresoline Inj) 10 mg PRN Q4HRS PRN 02/12/19 20:45 02/12/19 20:49 10 MG Info (PHARMACY MONITORING -- do not chart) 1 each PRN DAILY PRN 02/12/19 18:00 Insulin Human Lispro (HumaLOG) 0-5 UNITS Q6HRS 02/13/19 00:00 02/14/19 05:54 2 UNITS Insulin Human Regular 150 ml @ 0 mls/hr CONT PRN PRN 02/11/19 20:15 02/11/19 23:00 DC 02/11/19 20:21 1 MLS/HR Insulin Human Regular (HumuLIN R VIAL) 9 unit 1X ONCE 02/11/19 20:00 02/11/19 20:01 DC 02/11/19 20:21 9 UNIT Insulin Human Regular 150 unit/ Sodium Chloride 151.5 ml @ 0 mls/hr CONT PRN PRN 02/11/19 20:00 02/13/19 06:10 7 MLS/HR Lidocaine/Sodium Bicarbonate (Buffered Lidocaine 1%) 3 ml 1X ONCE 02/11/19 23:00 02/11/19 23:01 DC 02/11/19 23:10 4 ML Lorazepam (Ativan Inj) 1 mg PRN Q10MIN PRN 02/12/19 03:00 Magnesium Sulfate/ Dextrose 100 ml @ 25 mls/hr PRN DAILY PRN 02/12/19 09:00 Ondansetron HCl (Zofran) 4 mg PRN Q6HRS PRN 02/13/19 03:30 02/13/19 03:39 4 MG Piperacillin Sod/ Tazobactam Sod 2.25 gm/Sodium Chloride 50 ml @ 100 mls/hr Q8HRS 02/12/19 01:00 02/14/19 05:54 100 MLS/HR Piperacillin Sod/ Tazobactam Sod 3.375 gm/Sodium Chloride 50 ml @ 100 mls/hr Q6HRS 02/12/19 01:00 UNV Potassium Chloride/Water 50 ml @ 25 mls/hr Q2H 02/12/19 16:00 02/12/19 19:59 DC 02/12/19 18:18 25 MLS/HR Scopolamine (Transderm-Scop) 1 patch 1X ONCE 02/13/19 11:45 02/13/19 11:46 DC 02/13/19 13:44 1 PATCH Sodium Chloride 1,000 ml @ 75 mls/hr [id number] 02/12/19 20:45 02/13/19 22:21 75 MLS/HR Sodium Chloride (Normal Saline Flush) 10 ml 1X PRN PRN 02/12/19 15:00 02/13/19 14:17 DC Lab Laboratory Tests Test 02/13/19 09:21 02/13/19 10:21 02/13/19 11:27 02/13/19 11:54 Glucose (Fingerstick) 228 mg/dL (70-99) 114 mg/dL (70-99) 59 mg/dL (70-99) 130 mg/dL (70-99) Test 02/13/19 17:17 02/14/19 00:28 02/14/19 05:49 02/14/19 05:50 Glucose (Fingerstick) 257 mg/dL (70-99) 268 mg/dL (70-99) 283 mg/dL (70-99) White Blood Count 9.4 x10^3/uL (4.0-11.0) Red Blood Count 2.73 x10^6/uL (4.30-5.70) Hemoglobin 9.0 g/dL (13.0-17.5) Hematocrit 26.5 % (39.0-53.0) Mean Corpuscular Volume 97 fL (79-100) Mean Corpuscular Hemoglobin 33 pg (25-35) Mean Corpuscular Hemoglobin Concent 34 g/dL (31-37) Red Cell Distribution Width 12.9 % (11.5-14.5) Platelet Count 154 x10^3/uL (140-400) Neutrophils (%) (Auto) 87 % (31-73) Lymphocytes (%) (Auto) 3 % (24-48) Monocytes (%) (Auto) 8 % (0-9) Eosinophils (%) (Auto) 1 % (0-3) Basophils (%) (Auto) 0 % (0-3) Neutrophils # (Auto) 8.2 x10^3/uL (1.8-7.7) Lymphocytes # (Auto) 0.3 x10^3/uL (1.0-4.8) Monocytes # (Auto) 0.8 x10^3/uL (0.0-1.1) Eosinophils # (Auto) 0.1 x10^3/uL (0.0-0.7) Basophils # (Auto) 0.0 x10^3/uL (0.0-0.2) Sodium Level 141 mmol/L (136-145) Potassium Level 4.9 mmol/L (3.5-5.1) Chloride Level 103 mmol/L (98-107) Carbon Dioxide Level 21 mmol/L (21-32) Anion Gap 17 (6-14) Blood Urea Nitrogen 88 mg/dL (8-26) Creatinine 10.0 mg/dL (0.7-1.3) Estimated GFR (Cockcroft-Gault) 5.5 Glucose Level 311 mg/dL (70-99) Calcium Level 7.5 mg/dL (8.5-10.1) Results All relevant outside records, renal labs, imaging studies, telemetry/EKG's were reviewed. ROHIT KNOWLES MD Feb 14, 2019 09:11
--- NOTE | 2019-02-14 09:47 | NUR ---
NN :Swallowing easier today as evidenced by ability to take ice chips w/o ensuing coughing episode. Speech consult for detailed evaluation . Abbreviated nursg swallow completed. Ice chips sparingly till evaluation. Mentation clear,voice stronger, mild sore throat. Dr Argueta in,will do dialysis today-patient/family informed. continue POC
--- NOTE | 2019-02-14 11:00 | PDOC ---
Infectious Disease Note Subjective Subjective Enjoyed a grape popsicle Feeling better Now on 4L O2 No fevers last 24 hours Denies chills/SOA/CP/N/V/D ROS ROS per HPI Vital Sign Vital Signs Vital Signs Date Time Temp Pulse Resp B/P (MAP) Pulse Ox O2 Delivery O2 Flow Rate FiO2 02/14/19 10:03 94 21 144/76 (98) 96 Nasal Cannula 4.0 02/14/19 08:00 98.3 98.3 Physical Exam PHYSICAL EXAM GENERAL: Up in the chair, alert, smiling HEENT: Pupils equally round. Oral cavity dry NECK: Supple. LUNGS: Improved aeration, nonlabored. HEART: S1 and S2. ABDOMEN: Nondistended, soft, no guarding. Bowel sounds present. GENITOURINARY: Indwelling [place] in place. EXTREMITIES: No gross edema or cyanosis. SKIN: Warm to touch without signs of rash. NEUROLOGIC: Alert and oriented RIJ/HDC (8-6) without signs of any complications. Labs Lab Laboratory Tests Test 02/13/19 11:27 02/13/19 11:54 02/13/19 17:17 02/14/19 00:28 Glucose (Fingerstick) 59 mg/dL (70-99) 130 mg/dL (70-99) 257 mg/dL (70-99) 268 mg/dL (70-99) Test 02/14/19 05:49 02/14/19 05:50 Glucose (Fingerstick) 283 mg/dL (70-99) White Blood Count 9.4 x10^3/uL (4.0-11.0) Red Blood Count 2.73 x10^6/uL (4.30-5.70) Hemoglobin 9.0 g/dL (13.0-17.5) Hematocrit 26.5 % (39.0-53.0) Mean Corpuscular Volume 97 fL (79-100) Mean Corpuscular Hemoglobin 33 pg (25-35) Mean Corpuscular Hemoglobin Concent 34 g/dL (31-37) Red Cell Distribution Width 12.9 % (11.5-14.5) Platelet Count 154 x10^3/uL (140-400) Neutrophils (%) (Auto) 87 % (31-73) Lymphocytes (%) (Auto) 3 % (24-48) Monocytes (%) (Auto) 8 % (0-9) Eosinophils (%) (Auto) 1 % (0-3) Basophils (%) (Auto) 0 % (0-3) Neutrophils # (Auto) 8.2 x10^3/uL (1.8-7.7) Lymphocytes # (Auto) 0.3 x10^3/uL (1.0-4.8) Monocytes # (Auto) 0.8 x10^3/uL (0.0-1.1) Eosinophils # (Auto) 0.1 x10^3/uL (0.0-0.7) Basophils # (Auto) 0.0 x10^3/uL (0.0-0.2) Sodium Level 141 mmol/L (136-145) Potassium Level 4.9 mmol/L (3.5-5.1) Chloride Level 103 mmol/L (98-107) Carbon Dioxide Level 21 mmol/L (21-32) Anion Gap 17 (6-14) Blood Urea Nitrogen 88 mg/dL (8-26) Creatinine 10.0 mg/dL (0.7-1.3) Estimated GFR (Cockcroft-Gault) 5.5 Glucose Level 311 mg/dL (70-99) Calcium Level 7.5 mg/dL (8.5-10.1) Micro Microbiology 02/12/19 Blood Culture - Preliminary, Resulted NO GROWTH AFTER 2 DAY URINE CULTURE RES 1 Final No growth Objective Assessment Aspiration - pharyngitis is better Fever - Group A rapid neg. Leukocytosis - better Acute encephalopathy SARAH requiring HD DKA Seizure Plan Plan of Care Continue Zosyn, renal dose One time dose azithromycin, 02/12 today and will repeat in am 02/14 now off after today f/u cultures Monitor labs Clinically improving D/w mother Attending Co-Sign Attending Co-Sign The patient was seen and interviewed as well as examined at the bedside. The chart was reviewed. The case was discussed. Agree with the plan of care. TANIKA JOSEPH APRN Feb 14, 2019 11:00 NEAL MIRANDA MD Feb 14, 2019 13:20
[2019-02-14] MEDS ORDERED: IV NORMAL SALINE 1000ML BAG 1,000 ML IV PRN ×2 (11:09)
[2019-02-14] MEDS ORDERED: DIALYSIS PATIENT. MC PRN ×2 (11:15)
[2019-02-14] MEDS ORDERED: ALBUMIN HUMAN 25% 200 ML IV PRN (11:15)
[2019-02-14] MEDS ORDERED: 0.9 % SODIUM CHLORIDE 10 ML DISP.SYRIN. IV PRN ×2 (11:15)
--- NOTE | 2019-02-14 11:35 | PDOC ---
PROGRESS NOTES Assessment Problems Medical Problems: (1) DKA (diabetic ketoacidoses) Status: Acute (2) Elevated troponin Status: Acute (3) Renal failure Status: Acute Seizure related to metabolic encephalopathy, EEG negative for epileptic activity. Metabolic encephalopathy with leukocytosis, diabetic ketoacidosis, renal failure, hypocalcemia, rhabdomyolysis. Much better Plan Lorazepam as needed for seizures but only if they last more than 3-5 minutes Seizure precautions No additional neuro tests needed On-call neurologist will see as needed this weekend Discussed with patient's family. Subjective No complaints Objective Vital Signs Date Time Temp Pulse Resp B/P (MAP) Pulse Ox O2 Delivery O2 Flow Rate FiO2 02/14/19 10:03 94 21 144/76 (98) 96 Nasal Cannula 4.0 02/14/19 08:00 98.3 98.3 Intake and Output 02/14/19 07:00 Intake Total 2140 ml Output Total 440 ml Balance 1700 ml Intake Oral 0 ml IV Total 2140 ml Output Urine Total 440 ml PHYSICAL EXAM Alert. Oriented to place and person, does not know the date. PERRL. EOMI. CN: no focal findings. Muscle tone: normal. Muscle strength: 4/5 DTR: 1+ Plantar reflex: Flexor Gait: not examined in bed. Sensory exam: no abnormal findings. No cerebellar signs elicited. Review of Relevant I have reviewed the following items mindy (where applicable) has been applied. Labs Laboratory Tests Test 02/12/19 11:36 02/12/19 12:00 02/12/19 12:41 02/12/19 14:03 Glucose (Fingerstick) 183 mg/dL (70-99) 163 mg/dL (70-99) 131 mg/dL (70-99) Group A Streptococcus Rapid Negative (NEGATIVE) Test 02/12/19 14:40 02/12/19 15:13 02/12/19 16:19 02/12/19 17:23 White Blood Count 9.4 x10^3/uL (4.0-11.0) Red Blood Count 3.07 x10^6/uL (4.30-5.70) Hemoglobin 10.1 g/dL (13.0-17.5) Hematocrit 29.0 % (39.0-53.0) Mean Corpuscular Volume 95 fL (79-100) Mean Corpuscular Hemoglobin 33 pg (25-35) Mean Corpuscular Hemoglobin Concent 35 g/dL (31-37) Red Cell Distribution Width 13.1 % (11.5-14.5) Platelet Count 210 x10^3/uL (140-400) Neutrophils (%) (Auto) 85 % (31-73) Lymphocytes (%) (Auto) 5 % (24-48) Monocytes (%) (Auto) 8 % (0-9) Eosinophils (%) (Auto) 0 % (0-3) Basophils (%) (Auto) 0 % (0-3) Neutrophils # (Auto) 8.0 x10^3/uL (1.8-7.7) Lymphocytes # (Auto) 0.5 x10^3/uL (1.0-4.8) Monocytes # (Auto) 0.8 x10^3/uL (0.0-1.1) Eosinophils # (Auto) 0.0 x10^3/uL (0.0-0.7) Basophils # (Auto) 0.0 x10^3/uL (0.0-0.2) Sodium Level 143 mmol/L (136-145) Potassium Level 3.7 mmol/L (3.5-5.1) Chloride Level 103 mmol/L (98-107) Carbon Dioxide Level 23 mmol/L (21-32) Anion Gap 17 (6-14) Blood Urea Nitrogen 123 mg/dL (8-26) Creatinine 14.2 mg/dL (0.7-1.3) Estimated GFR (Cockcroft-Gault) 3.7 Glucose Level 127 mg/dL (70-99) Calcium Level 7.0 mg/dL (8.5-10.1) Phosphorus Level 3.7 mg/dL (2.6-4.7) Magnesium Level 1.7 mg/dL (1.8-2.4) Glucose (Fingerstick) 121 mg/dL (70-99) 119 mg/dL (70-99) 127 mg/dL (70-99) Test 02/12/19 18:27 02/12/19 18:37 02/12/19 21:47 02/12/19 23:39 Glucose (Fingerstick) 136 mg/dL (70-99) 200 mg/dL (70-99) 253 mg/dL (70-99) Sodium Level 140 mmol/L (136-145) Potassium Level 3.5 mmol/L (3.5-5.1) Chloride Level 99 mmol/L (98-107) Carbon Dioxide Level 31 mmol/L (21-32) Anion Gap 10 (6-14) Blood Urea Nitrogen 49 mg/dL (8-26) Creatinine 6.3 mg/dL (0.7-1.3) Estimated GFR (Cockcroft-Gault) 9.4 Glucose Level 139 mg/dL (70-99) Calcium Level 7.4 mg/dL (8.5-10.1) Phosphorus Level 2.1 mg/dL (2.6-4.7) Magnesium Level 1.5 mg/dL (1.8-2.4) Test 02/13/19 04:55 02/13/19 05:40 02/13/19 07:10 02/13/19 08:14 Influenza Type A Antigen Negative (NEGATIVE) Influenza Type B Antigen Negative (NEGATIVE) White Blood Count 9.8 x10^3/uL (4.0-11.0) Red Blood Count 3.01 x10^6/uL (4.30-5.70) Hemoglobin 9.9 g/dL (13.0-17.5) Hematocrit 28.9 % (39.0-53.0) Mean Corpuscular Volume 96 fL (79-100) Mean Corpuscular Hemoglobin 33 pg (25-35) Mean Corpuscular Hemoglobin Concent 34 g/dL (31-37) Red Cell Distribution Width 13.1 % (11.5-14.5) Platelet Count 173 x10^3/uL (140-400) Neutrophils (%) (Auto) 90 % (31-73) Lymphocytes (%) (Auto) 2 % (24-48) Monocytes (%) (Auto) 8 % (0-9) Eosinophils (%) (Auto) 0 % (0-3) Basophils (%) (Auto) 0 % (0-3) Neutrophils # (Auto) 8.8 x10^3/uL (1.8-7.7) Lymphocytes # (Auto) 0.2 x10^3/uL (1.0-4.8) Monocytes # (Auto) 0.8 x10^3/uL (0.0-1.1) Eosinophils # (Auto) 0.0 x10^3/uL (0.0-0.7) Basophils # (Auto) 0.0 x10^3/uL (0.0-0.2) Sodium Level 136 mmol/L (136-145) Potassium Level 5.2 mmol/L (3.5-5.1) Chloride Level 98 mmol/L (98-107) Carbon Dioxide Level 24 mmol/L (21-32) Anion Gap 14 (6-14) Blood Urea Nitrogen 63 mg/dL (8-26) Creatinine 8.1 mg/dL (0.7-1.3) Estimated GFR (Cockcroft-Gault) 7.0 BUN/Creatinine Ratio 8 (6-20) Glucose Level 434 mg/dL (70-99) Glucose (Fingerstick) 427 mg/dL (70-99) 383 mg/dL (70-99) 300 mg/dL (70-99) Calcium Level 7.1 mg/dL (8.5-10.1) Total Bilirubin 0.9 mg/dL (0.2-1.0) Aspartate Amino Transf (AST/SGOT) 33 U/L (15-37) Alanine Aminotransferase (ALT/SGPT) 14 U/L (16-63) Alkaline Phosphatase 96 U/L (46-116) Total Protein 5.8 g/dL (6.4-8.2) Albumin 2.1 g/dL (3.4-5.0) Albumin/Globulin Ratio 0.6 (1.0-1.7) Test 02/13/19 09:21 02/13/19 10:21 02/13/19 11:27 02/13/19 11:54 Glucose (Fingerstick) 228 mg/dL (70-99) 114 mg/dL (70-99) 59 mg/dL (70-99) 130 mg/dL (70-99) Test 02/13/19 17:17 02/14/19 00:28 02/14/19 05:49 02/14/19 05:50 Glucose (Fingerstick) 257 mg/dL (70-99) 268 mg/dL (70-99) 283 mg/dL (70-99) White Blood Count 9.4 x10^3/uL (4.0-11.0) Red Blood Count 2.73 x10^6/uL (4.30-5.70) Hemoglobin 9.0 g/dL (13.0-17.5) Hematocrit 26.5 % (39.0-53.0) Mean Corpuscular Volume 97 fL (79-100) Mean Corpuscular Hemoglobin 33 pg (25-35) Mean Corpuscular Hemoglobin Concent 34 g/dL (31-37) Red Cell Distribution Width 12.9 % (11.5-14.5) Platelet Count 154 x10^3/uL (140-400) Neutrophils (%) (Auto) 87 % (31-73) Lymphocytes (%) (Auto) 3 % (24-48) Monocytes (%) (Auto) 8 % (0-9) Eosinophils (%) (Auto) 1 % (0-3) Basophils (%) (Auto) 0 % (0-3) Neutrophils # (Auto) 8.2 x10^3/uL (1.8-7.7) Lymphocytes # (Auto) 0.3 x10^3/uL (1.0-4.8) Monocytes # (Auto) 0.8 x10^3/uL (0.0-1.1) Eosinophils # (Auto) 0.1 x10^3/uL (0.0-0.7) Basophils # (Auto) 0.0 x10^3/uL (0.0-0.2) Sodium Level 141 mmol/L (136-145) Potassium Level 4.9 mmol/L (3.5-5.1) Chloride Level 103 mmol/L (98-107) Carbon Dioxide Level 21 mmol/L (21-32) Anion Gap 17 (6-14) Blood Urea Nitrogen 88 mg/dL (8-26) Creatinine 10.0 mg/dL (0.7-1.3) Estimated GFR (Cockcroft-Gault) 5.5 Glucose Level 311 mg/dL (70-99) Calcium Level 7.5 mg/dL (8.5-10.1) Laboratory Tests Test 02/13/19 11:54 02/13/19 17:17 02/14/19 00:28 02/14/19 05:49 Glucose (Fingerstick) 130 mg/dL (70-99) 257 mg/dL (70-99) 268 mg/dL (70-99) 283 mg/dL (70-99) Test 02/14/19 05:50 White Blood Count 9.4 x10^3/uL (4.0-11.0) Red Blood Count 2.73 x10^6/uL (4.30-5.70) Hemoglobin 9.0 g/dL (13.0-17.5) Hematocrit 26.5 % (39.0-53.0) Mean Corpuscular Volume 97 fL (79-100) Mean Corpuscular Hemoglobin 33 pg (25-35) Mean Corpuscular Hemoglobin Concent 34 g/dL (31-37) Red Cell Distribution Width 12.9 % (11.5-14.5) Platelet Count 154 x10^3/uL (140-400) Neutrophils (%) (Auto) 87 % (31-73) Lymphocytes (%) (Auto) 3 % (24-48) Monocytes (%) (Auto) 8 % (0-9) Eosinophils (%) (Auto) 1 % (0-3) Basophils (%) (Auto) 0 % (0-3) Neutrophils # (Auto) 8.2 x10^3/uL (1.8-7.7) Lymphocytes # (Auto) 0.3 x10^3/uL (1.0-4.8) Monocytes # (Auto) 0.8 x10^3/uL (0.0-1.1) Eosinophils # (Auto) 0.1 x10^3/uL (0.0-0.7) Basophils # (Auto) 0.0 x10^3/uL (0.0-0.2) Sodium Level 141 mmol/L (136-145) Potassium Level 4.9 mmol/L (3.5-5.1) Chloride Level 103 mmol/L (98-107) Carbon Dioxide Level 21 mmol/L (21-32) Anion Gap 17 (6-14) Blood Urea Nitrogen 88 mg/dL (8-26) Creatinine 10.0 mg/dL (0.7-1.3) Estimated GFR (Cockcroft-Gault) 5.5 Glucose Level 311 mg/dL (70-99) Calcium Level 7.5 mg/dL (8.5-10.1) Microbiology 02/12/19 Blood Culture - Preliminary, Resulted NO GROWTH AFTER 2 DAYS 02/11/19 Urine Culture - Final, Complete 02/11/19 Urine Culture Result 1 (SABINE) - Final, Complete Medications Current Medications Sodium Chloride 1,000 ml @ 1,000 mls/hr 1X ONCE IV Last administered on 02/11/19at 19:19; Start 02/11/19 at 19:15; Stop 02/11/19 at 20:14; Status DC Sodium Chloride 1,000 ml @ 1,000 mls/hr 1X ONCE IV Last administered on 02/11/19at 20:21; Start 02/11/19 at 20:00; Stop 02/11/19 at 20:59; Status DC Insulin Human Regular (HumuLIN R VIAL) 9 unit 1X ONCE SQ Last administered on 02/11/19at 20:21; Start 02/11/19 at 20:00; Stop 02/11/19 at 20:01; Status DC Insulin Human Regular 150 unit/ Sodium Chloride 151.5 ml @ 0 mls/hr CONT PRN PRN IV PER PROTOCOL Last administered on 02/13/19at 06:10; Start 02/11/19 at 20:00 Potassium Chloride/Water 100 ml @ 100 mls/hr PRN Q1HR PRN IV SEE COMMENTS; Start 02/11/19 at 20:00 Potassium Chloride/Water 100 ml @ 100 mls/hr PRN Q1HR PRN IV SEE COMMENTS; Start 02/11/19 at 20:00 Potassium Chloride/Water 100 ml @ 100 mls/hr PRN Q1HR PRN IV SEE COMMENTS; Start 02/11/19 at 20:00 Magnesium Sulfate/ Dextrose 100 ml @ 25 mls/hr PRN DAILY PRN IV SEE COMMENTS; Start 02/12/19 at 09:00 Aspirin (Aspirin Rectal Supp) 300 mg 1X ONCE AR Last administered on 02/11/19at 20:21; Start 02/11/19 at 20:00; Stop 02/11/19 at 20:03; Status DC Insulin Human Regular 150 ml @ 0 mls/hr CONT PRN PRN IV PER PROTOCOL Last administered on 02/11/19at 20:21; Start 02/11/19 at 20:15; Stop 02/11/19 at 23:00; Status DC Ondansetron HCl (Zofran) 4 mg PRN Q8HRS PRN IV NAUSEA/VOMITING; Start 02/11/19 at 20:30; Stop 02/12/19 at 20:29; Status DC Calcium Gluconate (Calcium Gluconate) 1,000 mg 1X ONCE IVP Last administered o n 02/11/19at 21:29; Start 02/11/19 at 21:00; Stop 02/11/19 at 21:01; Status DC Sodium Chloride 1,000 ml @ 500 mls/hr 1X ONCE IV Last administered on 02/11/19at 21:29; Start 02/11/19 at 21:30; Stop 02/11/19 at 23:29; Status DC Lidocaine/Sodium Bicarbonate (Buffered Lidocaine 1%) 3 ml STK-MED ONCE .ROUTE ; Start 02/11/19 at 22:37; Stop 02/11/19 at 22:37; Status DC Lidocaine/Sodium Bicarbonate (Buffered Lidocaine 1%) 3 ml 1X ONCE IJ Last administered on 02/11/19at 23:10; Start 02/11/19 at 23:00; Stop 02/11/19 at 23:01; Status DC Sodium Chloride 1,000 ml @ 1,000 mls/hr Q1H PRN IV hypotension; Start 02/11/19 at 23:23; Stop 02/12/19 at 05:22; Status DC Sodium Chloride 1,000 ml @ 400 mls/hr Q2H30M PRN IV PATENCY; Start 02/11/19 at 23:23; Stop 02/12/19 at 11:22; Status DC Info (PHARMACY MONITORING -- do not chart) 1 each PRN DAILY PRN MC SEE COMMENTS; Start 02/11/19 at 23:30; Status UNV Info (PHARMACY MONITORING -- do not chart) 1 each PRN DAILY PRN MC SEE COMMENTS; Start 02/11/19 at 23:30; Stop 02/12/19 at 18:07; Status DC Sodium Chloride 1,000 ml @ 250 mls/hr Q4H IV Last administered on 02/12/19at 00:20; Start 02/12/19 at 00:14; Stop 02/12/19 at 01:32; Status DC Piperacillin Sod/ Tazobactam Sod 3.375 gm/Sodium Chloride 50 ml @ 100 mls/hr Q6HRS IV ; Start 02/12/19 at 01:00; Status UNV Piperacillin Sod/ Tazobactam Sod 2.25 gm/Sodium Chloride 50 ml @ 100 mls/hr Q8HRS IV Last administered on 02/14/19at 05:54; Start 02/12/19 at 01:00 Dextrose/Sodium Chloride 1,000 ml @ 250 mls/hr Q4H IV Last administered on 02/12/19at 15:39; Start 02/12/19 at 01:32; Stop 02/12/19 at 21:05; Status DC Lorazepam (Ativan Inj) 1 mg PRN Q10MIN PRN IV SEIZURE; Start 02/12/19 at 03:00 Sodium Chloride 250 ml @ 250 mls/hr 1X ONCE IV Last administered on 02/12/19at 05:25; Start 02/12/19 at 05:00; Stop 02/12/19 at 05:59; Status DC Azithromycin 500 mg/Sodium Chloride 250 ml @ 250 mls/hr 1X ONCE IV Last administered on 02/12/19at 05:25; Start 02/12/19 at 05:00; Stop 02/12/19 at 05:59; Status DC Potassium Chloride/Water 50 ml @ 25 mls/hr Q2H IV Last administered on 02/12/19at 10:06; Start 02/12/19 at 08:00; Stop 02/12/19 at 11:59; Status DC Azithromycin 250 ml @ 250 mls/hr 1X ONCE IV ; Start 02/13/19 at 05:00; Stop 02/12/19 at 11:37; Status DC Azithromycin 500 mg/Sodium Chloride 250 ml @ 250 mls/hr 1X ONCE IV Last administered on 02/13/19at 04:33; Start 02/13/19 at 05:00; Stop 02/13/19 at 05:59; Status DC Potassium Chloride/Water 50 ml @ 25 mls/hr Q2H IV Last administered on 02/12/19at 18:18; Start 02/12/19 at 16:00; Stop 02/12/19 at 19:59; Status DC Sodium Chloride 1,000 ml @ 1,000 mls/hr Q1H PRN IV hypotension; Start 02/12/19 at 15:00; Stop 02/12/19 at 20:59; Status DC Sodium Chloride (Normal Saline Flush) 10 ml 1X PRN PRN IV AP catheter pack; Start 02/12/19 at 15:00; Stop 02/13/19 at 14:17; Status DC Sodium Chloride (Normal Saline Flush) 10 ml 1X PRN PRN IV [employer] catheter pack; Start 02/12/19 at 15:00; Stop 02/13/19 at 14:17; Status DC Sodium Chloride 1,000 ml @ 400 mls/hr Q2H30M PRN IV PATENCY; Start 02/12/19 at 15:00; Stop 02/13/19 at 02:59; Status DC Info (PHARMACY MONITORING -- do not chart) 1 each PRN DAILY PRN MC SEE COMMENTS; Start 02/12/19 at 18:00; Stop 02/12/19 at 18:07; Status DC Info (PHARMACY MONITORING -- do not chart) 1 each PRN DAILY PRN MC SEE COMMENTS; Start 02/12/19 at 18:00 Sodium Chloride 1,000 ml @ 75 mls/hr [id number] IV Last administered on 02/13/19at 22:21; Start 02/12/19 at 20:45 Dextrose (Dextrose 50%-Water Syringe) 12.5 gm PRN Q15MIN PRN IV SEE COMMENTS Last administered on 02/13/19at 11:44; Start 02/12/19 at 20:45 Hydralazine HCl (Apresoline Inj) 10 mg PRN Q4HRS PRN IVP ELEVATED BP, SEE COMMENTS Last administered on 02/12/19at 20:49; Start 02/12/19 at 20:45 Insulin Human Lispro (HumaLOG) 0-5 UNITS Q6HRS SQ Last administered on 02/14/19at 05:54; Start 02/13/19 at 00:00 Albuterol Sulfate (Ventolin Neb Soln) 2.5 mg 1X ONCE NEB Last administered on 02/13/19at 01:01; Start 02/13/19 at 01:00; Stop 02/13/19 at 01:01; Status DC Ondansetron HCl (Zofran) 4 mg PRN Q6HRS PRN IV NAUSEA/VOMITING Last administered on 02/13/19 03:39; Start 02/13/19 at 03:30 Scopolamine (Transderm-Scop) 1 patch 1X ONCE TD Last administered on 02/13/19 13:44; Start 02/13/19 at 11:45; Stop 02/13/19 at 11:46; Status DC Azithromycin 500 mg/Sodium Chloride 250 ml @ 250 mls/hr 1X ONCE IV Last administered on 02/14/19at 04:32; Start 02/14/19 at 05:00; Stop 02/14/19 at 05:59; Status DC Sodium Chloride 1,000 ml @ 1,000 mls/hr Q1H PRN IV hypotension; Start 02/14/19 at 11:09; Stop 02/14/19 at 17:08 Albumin Human 200 ml @ 200 mls/hr 1X PRN PRN IV Hypotension; Start 02/14/19 at 11:15; Stop 02/14/19 at 17:14 Sodium Chloride (Normal Saline Flush) 10 ml 1X PRN PRN IV AP catheter pack; Start 02/14/19 at 11:15; Stop 02/15/19 at 11:14 Sodium Chloride (Normal Saline Flush) 10 ml 1X PRN PRN IV [employer] catheter pack; Start 02/14/19 at 11:15; Stop 02/15/19 at 11:14 Sodium Chloride 1,000 ml @ 400 mls/hr Q2H30M PRN IV PATENCY; Start 02/14/19 at 11:09; Stop 02/14/19 at 23:08 Info (PHARMACY MONITORING -- do not chart) 1 each PRN DAILY PRN MC SEE COMMENTS; Start 02/14/19 at 11:15; Status UNV Info (PHARMACY MONITORING -- do not chart) 1 each PRN DAILY PRN MC SEE COMMENTS; Start 02/14/19 at 11:15; Status UNV Active Scripts Active Reported Metformin Hcl 500 Mg Tablet 500 Mg PO BIDWMEALS Vitals/I & O Vital Sign - Last 24 Hours 02/13/19 02/13/19 02/13/19 02/13/19 12:00 12:00 13:00 14:00 Temp 98.4 98.4 Resp 21 15 16 B/P (MAP) 161/81 (107) 140/63 (88) 83/48 (60) Pulse Ox 98 98 96 O2 Delivery Nasal Cannula Nasal Cannula Nasal Cannula Nasal Cannula O2 Flow Rate 4.0 4.0 4.0 02/13/19 02/13/19 02/13/19 02/13/19 15:00 16:00 16:00 17:00 Temp 98.6 98.6 Pulse 102 102 107 Resp 21 23 25 B/P (MAP) 138/63 (88) 139/68 (91) 127/67 (87) Pulse Ox 98 97 93 O2 Delivery Nasal Cannula Nasal Cannula Nasal Cannula Nasal Cannula O2 Flow Rate 4.0 4.0 4.0 02/13/19 02/13/19 02/13/19 02/13/19 18:00 19:00 19:41 20:00 Temp 99.0 99.0 Pulse 108 109 106 Resp 23 19 22 B/P (MAP) 126/75 (92) 149/82 (104) 154/66 (95) Pulse Ox 95 93 98 O2 Delivery Nasal Cannula Nasal Cannula Nasal Cannula Nasal Cannula O2 Flow Rate 4.0 4.0 4.0 4.0 02/13/19 02/13/19 02/13/19 02/13/19 21:00 22:00 23:00 23:59 Pulse 104 101 103 Resp 14 17 20 B/P (MAP) 131/69 (89) 140/71 (94) 162/85 (110) Pulse Ox 98 98 98 O2 Delivery Nasal Cannula Nasal Cannula Nasal Cannula Nasal Cannula O2 Flow Rate 4.0 4.0 4.0 2.0 02/14/19 02/14/19 02/14/19 02/14/19 00:00 01:00 02:00 03:00 Temp 98.7 98.7 Pulse 100 106 101 98 Resp 18 16 20 23 B/P (MAP) 143/78 (99) 146/70 (95) 122/76 (91) 151/78 (102) Pulse Ox 94 90 96 99 O2 Delivery Nasal Cannula Nasal Cannula Nasal Cannula Nasal Cannula O2 Flow Rate 2.0 4.0 4.0 4.0 02/14/19 02/14/19 02/14/19 02/14/19 03:40 04:00 05:00 06:00 Temp 99.0 99.0 Pulse 93 107 94 Resp 16 18 14 B/P (MAP) 108/64 (79) 138/92 (107) 141/69 (93) Pulse Ox 98 90 98 O2 Delivery Nasal Cannula Nasal Cannula Nasal Cannula Nasal Cannula O2 Flow Rate 4.0 4.0 4.0 4.0 02/14/19 02/14/19 02/14/19 02/14/19 07:00 08:00 08:00 09:00 Temp 98.3 98.3 Pulse 74 68 92 Resp 16 15 18 B/P (MAP) 119/62 (81) 119/64 (82) 155/80 (105) Pulse Ox 95 O2 Delivery Nasal Cannula Nasal Cannula Nasal Cannula Nasal Cannula O2 Flow Rate 4.0 3.0 4.0 4.0 02/14/19 10:03 Pulse 94 Resp 21 B/P (MAP) 144/76 (98) Pulse Ox 96 O2 Delivery Nasal Cannula O2 Flow Rate 4.0 Intake and Output 02/13/19 02/13/19 02/14/19 15:00 23:00 07:00 Intake Total 50 ml 901 ml 1189 ml Output Total 120 ml 130 ml 190 ml Balance -70 ml 771 ml 999 ml CITLALLI GONZALEZ MD Feb 14, 2019 11:34
[2019-02-14] MEDS: IV NORMAL SALINE 1000ML BAG 1,000 ML IV SCH (12:45)
--- NOTE | 2019-02-14 13:22 | PDOC ---
[facility] PROGRESS NOTE Chief Complaint Chief Complaint Acute DKA Altered mental status Seizure SARAH Hyperkalemia T2DM Leukocytosis Lactic acidosis History of Present Illness History of Present Illness 02/14/19 Pt seen and examined in ICU [place] to BSD Pt sitting up in chair and communicative Anion gap 17 (14, 17 today) DW RN DW family 02/13/19 Pt seen and examined in ICU Venti mask at 50% O2 Pt sitting up in bed marked improvement Anion gap trending down (21, 14 today) Vitals/I&O Vitals/I&O: Vital Signs Date Time Temp Pulse Resp B/P (MAP) Pulse Ox O2 Delivery O2 Flow Rate FiO2 02/14/19 10:03 94 21 144/76 (98) 96 Nasal Cannula 4.0 02/14/19 08:00 98.3 98.3 I & O 02/13/19 02/13/19 02/14/19 14:59 22:59 06:59 Intake Total 50 ml 901 ml 1189 ml Output Total 110 ml 120 ml 195 ml Balance -60 ml 781 ml 994 ml Physical Exam Physical Exam: GENERAL: Up in the chair, alert, smiling HEENT: Pupils equally round. Oral cavity dry NECK: Supple. LUNGS: Improved aeration, nonlabored. HEART: S1 and S2. ABDOMEN: Nondistended, soft, no guarding. Bowel sounds present. GENITOURINARY: Indwelling [place] in place. EXTREMITIES: No gross edema or cyanosis. SKIN: Warm to touch without signs of rash. NEUROLOGIC: Alert and oriented RIJ/HDC (8-6) without signs of any complications. General: Alert, Oriented X3, Cooperative, No acute distress, Other (non-verbal ) Heart: Regular rate, Other (distant heart tones) Lungs: Crackles Abdomen: Soft, No tenderness Extremities: No clubbing, No edema, Normal pulses Skin: No breakdown, No significant lesion Labs Labs: Laboratory Tests Test 02/13/19 17:17 02/14/19 00:28 02/14/19 05:49 02/14/19 05:50 Glucose (Fingerstick) 257 mg/dL (70-99) 268 mg/dL (70-99) 283 mg/dL (70-99) White Blood Count 9.4 x10^3/uL (4.0-11.0) Red Blood Count 2.73 x10^6/uL (4.30-5.70) Hemoglobin 9.0 g/dL (13.0-17.5) Hematocrit 26.5 % (39.0-53.0) Mean Corpuscular Volume 97 fL (79-100) Mean Corpuscular Hemoglobin 33 pg (25-35) Mean Corpuscular Hemoglobin Concent 34 g/dL (31-37) Red Cell Distribution Width 12.9 % (11.5-14.5) Platelet Count 154 x10^3/uL (140-400) Neutrophils (%) (Auto) 87 % (31-73) Lymphocytes (%) (Auto) 3 % (24-48) Monocytes (%) (Auto) 8 % (0-9) Eosinophils (%) (Auto) 1 % (0-3) Basophils (%) (Auto) 0 % (0-3) Neutrophils # (Auto) 8.2 x10^3/uL (1.8-7.7) Lymphocytes # (Auto) 0.3 x10^3/uL (1.0-4.8) Monocytes # (Auto) 0.8 x10^3/uL (0.0-1.1) Eosinophils # (Auto) 0.1 x10^3/uL (0.0-0.7) Basophils # (Auto) 0.0 x10^3/uL (0.0-0.2) Sodium Level 141 mmol/L (136-145) Potassium Level 4.9 mmol/L (3.5-5.1) Chloride Level 103 mmol/L (98-107) Carbon Dioxide Level 21 mmol/L (21-32) Anion Gap 17 (6-14) Blood Urea Nitrogen 88 mg/dL (8-26) Creatinine 10.0 mg/dL (0.7-1.3) Estimated GFR (Cockcroft-Gault) 5.5 Glucose Level 311 mg/dL (70-99) Calcium Level 7.5 mg/dL (8.5-10.1) Test 02/14/19 12:22 Glucose (Fingerstick) 355 mg/dL (70-99) Review of Systems Review of Systems: Denies RAMIREZ Denies N/V/D Assessment and Plan Assessmemt and Plan Problems Medical Problems: (1) DKA (diabetic ketoacidoses) Status: Acute (2) Elevated troponin Status: Acute (3) Renal failure Status: Acute Assessment Acute DKA Altered mental status Seizure SARAH Hyperkalemia T2DM Leukocytosis Lactic acidosis Plan ICU monitoring IV Abx Insulin IV fluids Dialysis Home meds PTOT Appreciate subspecialist input Total time 34 minutes Comment Review of Relevant I have reviewed the following items mindy (where applicable) has been applied. Medications: Current Medications Medications (Trade) Dose Ordered Sig/Ismael Route PRN Reason Start Time Stop Time Status Last Admin Dose Admin Azithromycin 500 mg/Sodium Chloride 250 ml @ 250 mls/hr 1X ONCE IV 02/14/19 05:00 02/14/19 05:59 DC 02/14/19 04:32 MONIQUE SIERRA III DO Feb 14, 2019 13:22
--- NOTE | 2019-02-14 18:18 | NUR ---
1600 NN : Shy baca speech @ bedside for speech eval. Strong recommendation to keep NPO till re evaluation in am. #H dialysis run complete w 1.3 liters removed. Mentation better ,VSS,HR low 100s w good tolerance by patient
--- NOTE | 2019-02-14 19:31 | NUR ---
Coughing episode w desaturation.Mask placed w slooow recovery to 90s. Bed in chair position facilitating respers.
[2019-02-14] MEDS: ONDANSETRON PF 4 MG/2 ML VIAL. IV PRN (22:46)
[2019-02-15] VITALS (19 sets, daily range): BP systolic 118–174; BP diastolic 61–85
[2019-02-15] MEDS: INSULIN LISPRO 300 UNITS/3 ML INSULN.PEN. SQ SCH ×4 (00:24→17:44)
[2019-02-15] MEDS: ONDANSETRON PF 4 MG/2 ML VIAL. IV PRN (06:07)
[2019-02-15] MEDS: PIPERACILLIN/TAZOBACTAM 2.25 GM in IV NORMAL SALINE 50ML 50 ML IV SCH ×3 (06:07→22:35)
[2019-02-15] MEDS: IV NORMAL SALINE 1000ML BAG 1,000 ML IV SCH ×3 (06:07→22:35)
[2019-02-15 06:26] LABS: BASO % 0 % (0-3); EOS # 0.1 x10^3/uL (0.0-0.7); EOS % 2 % (0-3); HEMOGLOBIN 9.2 g/dL (13.0-17.5); LYMPH # 0.6 x10^3/uL (1.0-4.8); LYMPH % 6 % (24-48); MEAN CORPUSCULAR HEMOGLOBIN 33 pg (25-35); MEAN CORPUSCULAR HGB CONC 34 g/dL (31-37); MEAN CORPUSCULAR VOLUME 96 fL (79-100); MONO # 0.8 x10^3/uL (0.0-1.1); MONO % 9 % (0-9); NEUT # 7.2 x10^3/uL (1.8-7.7); NEUT % 83 % (31-73); PLATELET COUNT 133 x10^3/uL (140-400); RED BLOOD COUNT 2.81 x10^6/uL (4.30-5.70); RED CELL DISTRIBUTION WIDTH 13.1 % (11.5-14.5); WHITE BLOOD COUNT 8.7 x10^3/uL (4.0-11.0)
[2019-02-15 06:34] LABS: CALCIUM 8.1 mg/dL (8.5-10.1); CREATININE 5.9 mg/dL (0.7-1.3); GFR 10.2; POTASSIUM 4.6 mmol/L (3.5-5.1)
--- NOTE | 2019-02-15 10:34 | NUR ---
Bedside Swallow Evaluation completed. Please refer to full report for additional information. Impressions: Moderate to moderate-severe oropharyngeal dysphagia w/ pt demonstrating s/s aspiration on own secretions, single ice chips and 1/8 tsp amounts of honey thick liquids. Pt demonstrated absent swallow w/ ice chip trial at today's evaluation as well as 02/14 screening. When swallow was produced w/ honey thick liquid trial, hyolaryngeal excursion was decreased in upward and anterior movement followed by overt s/s aspiration and decreased O2 sats. Additionally pt presents w/ abnormal phonation quality and decreased phonation intensity which pt and pt's mother report are not pt's baseline. Undetermined if general weakness from current medical condition is the primary factor in pt's dysphagia vs other cause. NPO is indicated and duration of need for NPO is unknown at this time. Aggressive oral care indicated lane given pt's dentition status and pt's high potential to aspirate own saliva. Recommendations: Strict NPO for nutrition and meds. Oral care. WASTE BALER f/u for dysphagia and to assess readiness for PO intake. D/w w/ RN Don who will contact physician about need to remain NPO and discuss nutrition options while NPO.
--- NOTE | 2019-02-15 11:51 | PDOC ---
Infectious Disease Note Subjective Subjective c/o mild chest discomfort O2 2 L Denies SOA/cough/F/C/N/V No BM Vital Sign Vital Signs Vital Signs Date Time Temp Pulse Resp B/P (MAP) Pulse Ox O2 Delivery O2 Flow Rate FiO2 02/15/19 10:57 98.6 95 20 161/82 (108) 96 Nasal Cannula 2.0 98.6 Physical Exam PHYSICAL EXAM GENERAL: Up in the chair, alert, smiling HEENT: Pupils equally round. Oral cavity dry, black tongue NECK: Supple. LUNGS: Improved aeration, nonlabored. HEART: S1 and S2. ABDOMEN: Nondistended, soft, no guarding. Bowel sounds present. GENITOURINARY: Indwelling [place] in place. EXTREMITIES: No gross edema or cyanosis. SKIN: Warm to touch without signs of rash. NEUROLOGIC: Alert and oriented x 3 RIJ/HDC (8-6) without signs of any complications. Labs Lab Laboratory Tests Test 02/14/19 12:22 02/14/19 17:49 02/15/19 00:22 02/15/19 05:59 Glucose (Fingerstick) 355 mg/dL (70-99) 152 mg/dL (70-99) 284 mg/dL (70-99) 289 mg/dL (70-99) Test 02/15/19 06:00 White Blood Count 8.7 x10^3/uL (4.0-11.0) Red Blood Count 2.81 x10^6/uL (4.30-5.70) Hemoglobin 9.2 g/dL (13.0-17.5) Hematocrit 27.0 % (39.0-53.0) Mean Corpuscular Volume 96 fL (79-100) Mean Corpuscular Hemoglobin 33 pg (25-35) Mean Corpuscular Hemoglobin Concent 34 g/dL (31-37) Red Cell Distribution Width 13.1 % (11.5-14.5) Platelet Count 133 x10^3/uL (140-400) Neutrophils (%) (Auto) 83 % (31-73) Lymphocytes (%) (Auto) 6 % (24-48) Monocytes (%) (Auto) 9 % (0-9) Eosinophils (%) (Auto) 2 % (0-3) Basophils (%) (Auto) 0 % (0-3) Neutrophils # (Auto) 7.2 x10^3/uL (1.8-7.7) Lymphocytes # (Auto) 0.6 x10^3/uL (1.0-4.8) Monocytes # (Auto) 0.8 x10^3/uL (0.0-1.1) Eosinophils # (Auto) 0.1 x10^3/uL (0.0-0.7) Basophils # (Auto) 0.0 x10^3/uL (0.0-0.2) Sodium Level 140 mmol/L (136-145) Potassium Level 4.6 mmol/L (3.5-5.1) Chloride Level 100 mmol/L (98-107) Carbon Dioxide Level 25 mmol/L (21-32) Anion Gap 15 (6-14) Blood Urea Nitrogen 46 mg/dL (8-26) Creatinine 5.9 mg/dL (0.7-1.3) Estimated GFR (Cockcroft-Gault) 10.2 Glucose Level 301 mg/dL (70-99) Calcium Level 8.1 mg/dL (8.5-10.1) Micro Microbiology 02/12/19 Blood Culture - Preliminary, Resulted NO GROWTH AFTER 3 DAY URINE CULTURE RES 1 Final No growth THROAT CULT RESULT 1 Final Comment Routine respiratory shanel Objective Assessment Aspiration - pharyngitis is better - cults neg - failed swallow study - NPO Fever - Group A rapid neg. Leukocytosis - better Acute encephalopathy SARAH requiring HD DKA Seizure Plan Plan of Care Continue Zosyn, renal dose Off azithromycin, Cultures neg Monitor labs Clinically improving - looks well D/w mother Attending Co-Sign Attending Co-Sign The patient was seen and interviewed as well as examined at the bedside. The chart was reviewed. The case was discussed. Agree with the plan of care. TANIKA JOSEPH APRN Feb 15, 2019 11:51 NEAL MIRANDA MD Feb 15, 2019 12:05
--- NOTE | 2019-02-15 12:06 | PDOC ---
Dialysis Progress Note Dialysis Note Dialysis Note Patient set up for Hemodialysis later today General Appearance: Awake: Alert Oriented x 2 Neck: No JVD or JVP Chest: CTA Brody Heart: S1 S2 Abdomen - Soft NTND Extremities - No Edema ARF/ ATN : Dialysis as below F 180 NR 3.5 Hrs 3 K 2.5 Ca 140 Na 35 HC03 Qb 350 + Qd 500+ Heparin 0 Units Uf 2-3 Kgs or to dry weight as tolerated May give 25-50 gms of 25% Albumin if needed to maintain Hemodynamic stability Treatment plan reviewed and discussed with body shop estimator Vitals Vital Signs Vital Signs Date Time Temp Pulse Resp B/P (MAP) Pulse Ox O2 Delivery O2 Flow Rate FiO2 02/15/19 10:57 98.6 95 20 161/82 (108) 96 Nasal Cannula 2.0 98.6 Labs Last Labs Laboratory Tests Test 02/13/19 17:17 02/14/19 00:28 02/14/19 05:49 02/14/19 05:50 Glucose (Fingerstick) 257 mg/dL (70-99) 268 mg/dL (70-99) 283 mg/dL (70-99) White Blood Count 9.4 x10^3/uL (4.0-11.0) Red Blood Count 2.73 x10^6/uL (4.30-5.70) Hemoglobin 9.0 g/dL (13.0-17.5) Hematocrit 26.5 % (39.0-53.0) Mean Corpuscular Volume 97 fL (79-100) Mean Corpuscular Hemoglobin 33 pg (25-35) Mean Corpuscular Hemoglobin Concent 34 g/dL (31-37) Red Cell Distribution Width 12.9 % (11.5-14.5) Platelet Count 154 x10^3/uL (140-400) Neutrophils (%) (Auto) 87 % (31-73) Lymphocytes (%) (Auto) 3 % (24-48) Monocytes (%) (Auto) 8 % (0-9) Eosinophils (%) (Auto) 1 % (0-3) Basophils (%) (Auto) 0 % (0-3) Neutrophils # (Auto) 8.2 x10^3/uL (1.8-7.7) Lymphocytes # (Auto) 0.3 x10^3/uL (1.0-4.8) Monocytes # (Auto) 0.8 x10^3/uL (0.0-1.1) Eosinophils # (Auto) 0.1 x10^3/uL (0.0-0.7) Basophils # (Auto) 0.0 x10^3/uL (0.0-0.2) Sodium Level 141 mmol/L (136-145) Potassium Level 4.9 mmol/L (3.5-5.1) Chloride Level 103 mmol/L (98-107) Carbon Dioxide Level 21 mmol/L (21-32) Anion Gap 17 (6-14) Blood Urea Nitrogen 88 mg/dL (8-26) Creatinine 10.0 mg/dL (0.7-1.3) Estimated GFR (Cockcroft-Gault) 5.5 Glucose Level 311 mg/dL (70-99) Calcium Level 7.5 mg/dL (8.5-10.1) Test 02/14/19 12:22 02/14/19 17:49 02/15/19 00:22 02/15/19 05:59 Glucose (Fingerstick) 355 mg/dL (70-99) 152 mg/dL (70-99) 284 mg/dL (70-99) 289 mg/dL (70-99) Test 02/15/19 06:00 White Blood Count 8.7 x10^3/uL (4.0-11.0) Red Blood Count 2.81 x10^6/uL (4.30-5.70) Hemoglobin 9.2 g/dL (13.0-17.5) Hematocrit 27.0 % (39.0-53.0) Mean Corpuscular Volume 96 fL (79-100) Mean Corpuscular Hemoglobin 33 pg (25-35) Mean Corpuscular Hemoglobin Concent 34 g/dL (31-37) Red Cell Distribution Width 13.1 % (11.5-14.5) Platelet Count 133 x10^3/uL (140-400) Neutrophils (%) (Auto) 83 % (31-73) Lymphocytes (%) (Auto) 6 % (24-48) Monocytes (%) (Auto) 9 % (0-9) Eosinophils (%) (Auto) 2 % (0-3) Basophils (%) (Auto) 0 % (0-3) Neutrophils # (Auto) 7.2 x10^3/uL (1.8-7.7) Lymphocytes # (Auto) 0.6 x10^3/uL (1.0-4.8) Monocytes # (Auto) 0.8 x10^3/uL (0.0-1.1) Eosinophils # (Auto) 0.1 x10^3/uL (0.0-0.7) Basophils # (Auto) 0.0 x10^3/uL (0.0-0.2) Sodium Level 140 mmol/L (136-145) Potassium Level 4.6 mmol/L (3.5-5.1) Chloride Level 100 mmol/L (98-107) Carbon Dioxide Level 25 mmol/L (21-32) Anion Gap 15 (6-14) Blood Urea Nitrogen 46 mg/dL (8-26) Creatinine 5.9 mg/dL (0.7-1.3) Estimated GFR (Cockcroft-Gault) 10.2 Glucose Level 301 mg/dL (70-99) Calcium Level 8.1 mg/dL (8.5-10.1) Laboratory Tests Test 02/14/19 12:22 02/14/19 17:49 02/15/19 00:22 02/15/19 05:59 Glucose (Fingerstick) 355 mg/dL (70-99) 152 mg/dL (70-99) 284 mg/dL (70-99) 289 mg/dL (70-99) Test 02/15/19 06:00 White Blood Count 8.7 x10^3/uL (4.0-11.0) Red Blood Count 2.81 x10^6/uL (4.30-5.70) Hemoglobin 9.2 g/dL (13.0-17.5) Hematocrit 27.0 % (39.0-53.0) Mean Corpuscular Volume 96 fL (79-100) Mean Corpuscular Hemoglobin 33 pg (25-35) Mean Corpuscular Hemoglobin Concent 34 g/dL (31-37) Red Cell Distribution Width 13.1 % (11.5-14.5) Platelet Count 133 x10^3/uL (140-400) Neutrophils (%) (Auto) 83 % (31-73) Lymphocytes (%) (Auto) 6 % (24-48) Monocytes (%) (Auto) 9 % (0-9) Eosinophils (%) (Auto) 2 % (0-3) Basophils (%) (Auto) 0 % (0-3) Neutrophils # (Auto) 7.2 x10^3/uL (1.8-7.7) Lymphocytes # (Auto) 0.6 x10^3/uL (1.0-4.8) Monocytes # (Auto) 0.8 x10^3/uL (0.0-1.1) Eosinophils # (Auto) 0.1 x10^3/uL (0.0-0.7) Basophils # (Auto) 0.0 x10^3/uL (0.0-0.2) Sodium Level 140 mmol/L (136-145) Potassium Level 4.6 mmol/L (3.5-5.1) Chloride Level 100 mmol/L (98-107) Carbon Dioxide Level 25 mmol/L (21-32) Anion Gap 15 (6-14) Blood Urea Nitrogen 46 mg/dL (8-26) Creatinine 5.9 mg/dL (0.7-1.3) Estimated GFR (Cockcroft-Gault) 10.2 Glucose Level 301 mg/dL (70-99) Calcium Level 8.1 mg/dL (8.5-10.1) Assessment Assessment Problems Medical Problems: (1) DKA (diabetic ketoacidoses) Status: Acute (2) Elevated troponin Status: Acute (3) Renal failure Status: Acute Plan Plan of Care Problems Medical Problems: (1) DKA (diabetic ketoacidoses) Status: Acute (2) Elevated troponin Status: Acute (3) Renal failure Status: Acute JG XIONG MD Feb 15, 2019 12:06
--- NOTE | 2019-02-15 17:50 | PDOC ---
PROGRESS NOTES Chief Complaint Chief Complaint Acute DKA, resolved Altered mental status, resolved Seizure, resolved SARAH now on HD per nephro Hyperkalemia, resolved T2DM Leukocytosis Lactic acidosis Dysphagia History of Present Illness History of Present Illness 03/18/19: no issues overnight. wants something to eat continue zosyn, renally dosed cultures negative, including group A strep check barium swallow today given dysphagia continue to adjust insulin as needed 02/14/19 Pt seen and examined in ICU [place] to BSD Pt sitting up in chair and communicative Anion gap 17 (14, 17 today) DW RN DW family 02/13/19 Pt seen and examined in ICU Venti mask at 50% O2 Pt sitting up in bed marked improvement Anion gap trending down (21, 14 today) Vitals Vitals Vital Signs Date Time Temp Pulse Resp B/P (MAP) Pulse Ox O2 Delivery O2 Flow Rate FiO2 02/15/19 16:30 Nasal Cannula 2.0 02/15/19 16:23 98.0 110 26 134/68 (90) 98 98.0 Physical Exam Physical Exam GENERAL: Up in the chair, alert, smiling HEENT: Pupils equally round. Oral cavity dry, black tongue NECK: Supple. LUNGS: Improved aeration, nonlabored. HEART: S1 and S2. ABDOMEN: Nondistended, soft, no guarding. Bowel sounds present. GENITOURINARY: Indwelling [place] in place. EXTREMITIES: No gross edema or cyanosis. SKIN: Warm to touch without signs of rash. NEUROLOGIC: Alert and oriented x 3 RIJ/HDC (8-6) without signs of any complications. General: Alert, Oriented X3, Cooperative, No acute distress, Other (non-verbal ) Heart: Regular rate, Other (distant heart tones) Lungs: Crackles Abdomen: Soft, No tenderness Extremities: No clubbing, No edema, Normal pulses Skin: No breakdown, No significant lesion Labs LABS Laboratory Tests Test 02/14/19 17:49 02/15/19 00:22 02/15/19 05:59 02/15/19 06:00 Glucose (Fingerstick) 152 mg/dL (70-99) 284 mg/dL (70-99) 289 mg/dL (70-99) White Blood Count 8.7 x10^3/uL (4.0-11.0) Red Blood Count 2.81 x10^6/uL (4.30-5.70) Hemoglobin 9.2 g/dL (13.0-17.5) Hematocrit 27.0 % (39.0-53.0) Mean Corpuscular Volume 96 fL (79-100) Mean Corpuscular Hemoglobin 33 pg (25-35) Mean Corpuscular Hemoglobin Concent 34 g/dL (31-37) Red Cell Distribution Width 13.1 % (11.5-14.5) Platelet Count 133 x10^3/uL (140-400) Neutrophils (%) (Auto) 83 % (31-73) Lymphocytes (%) (Auto) 6 % (24-48) Monocytes (%) (Auto) 9 % (0-9) Eosinophils (%) (Auto) 2 % (0-3) Basophils (%) (Auto) 0 % (0-3) Neutrophils # (Auto) 7.2 x10^3/uL (1.8-7.7) Lymphocytes # (Auto) 0.6 x10^3/uL (1.0-4.8) Monocytes # (Auto) 0.8 x10^3/uL (0.0-1.1) Eosinophils # (Auto) 0.1 x10^3/uL (0.0-0.7) Basophils # (Auto) 0.0 x10^3/uL (0.0-0.2) Sodium Level 140 mmol/L (136-145) Potassium Level 4.6 mmol/L (3.5-5.1) Chloride Level 100 mmol/L (98-107) Carbon Dioxide Level 25 mmol/L (21-32) Anion Gap 15 (6-14) Blood Urea Nitrogen 46 mg/dL (8-26) Creatinine 5.9 mg/dL (0.7-1.3) Estimated GFR (Cockcroft-Gault) 10.2 Glucose Level 301 mg/dL (70-99) Calcium Level 8.1 mg/dL (8.5-10.1) Test 02/15/19 12:20 Glucose (Fingerstick) 278 mg/dL (70-99) Assessment and Plan Assessmemt and Plan Problems Medical Problems: (1) DKA (diabetic ketoacidoses) Status: Acute (2) Elevated troponin Status: Acute (3) Renal failure Status: Acute Comment Review of Relevant I have reviewed the following items mindy (where applicable) has been applied. Labs Laboratory Tests Test 02/14/19 00:28 02/14/19 05:49 02/14/19 05:50 02/14/19 12:22 Glucose (Fingerstick) 268 mg/dL (70-99) 283 mg/dL (70-99) 355 mg/dL (70-99) White Blood Count 9.4 x10^3/uL (4.0-11.0) Red Blood Count 2.73 x10^6/uL (4.30-5.70) Hemoglobin 9.0 g/dL (13.0-17.5) Hematocrit 26.5 % (39.0-53.0) Mean Corpuscular Volume 97 fL (79-100) Mean Corpuscular Hemoglobin 33 pg (25-35) Mean Corpuscular Hemoglobin Concent 34 g/dL (31-37) Red Cell Distribution Width 12.9 % (11.5-14.5) Platelet Count 154 x10^3/uL (140-400) Neutrophils (%) (Auto) 87 % (31-73) Lymphocytes (%) (Auto) 3 % (24-48) Monocytes (%) (Auto) 8 % (0-9) Eosinophils (%) (Auto) 1 % (0-3) Basophils (%) (Auto) 0 % (0-3) Neutrophils # (Auto) 8.2 x10^3/uL (1.8-7.7) Lymphocytes # (Auto) 0.3 x10^3/uL (1.0-4.8) Monocytes # (Auto) 0.8 x10^3/uL (0.0-1.1) Eosinophils # (Auto) 0.1 x10^3/uL (0.0-0.7) Basophils # (Auto) 0.0 x10^3/uL (0.0-0.2) Sodium Level 141 mmol/L (136-145) Potassium Level 4.9 mmol/L (3.5-5.1) Chloride Level 103 mmol/L (98-107) Carbon Dioxide Level 21 mmol/L (21-32) Anion Gap 17 (6-14) Blood Urea Nitrogen 88 mg/dL (8-26) Creatinine 10.0 mg/dL (0.7-1.3) Estimated GFR (Cockcroft-Gault) 5.5 Glucose Level 311 mg/dL (70-99) Calcium Level 7.5 mg/dL (8.5-10.1) Test 02/14/19 17:49 02/15/19 00:22 02/15/19 05:59 02/15/19 06:00 Glucose (Fingerstick) 152 mg/dL (70-99) 284 mg/dL (70-99) 289 mg/dL (70-99) White Blood Count 8.7 x10^3/uL (4.0-11.0) Red Blood Count 2.81 x10^6/uL (4.30-5.70) Hemoglobin 9.2 g/dL (13.0-17.5) Hematocrit 27.0 % (39.0-53.0) Mean Corpuscular Volume 96 fL (79-100) Mean Corpuscular Hemoglobin 33 pg (25-35) Mean Corpuscular Hemoglobin Concent 34 g/dL (31-37) Red Cell Distribution Width 13.1 % (11.5-14.5) Platelet Count 133 x10^3/uL (140-400) Neutrophils (%) (Auto) 83 % (31-73) Lymphocytes (%) (Auto) 6 % (24-48) Monocytes (%) (Auto) 9 % (0-9) Eosinophils (%) (Auto) 2 % (0-3) Basophils (%) (Auto) 0 % (0-3) Neutrophils # (Auto) 7.2 x10^3/uL (1.8-7.7) Lymphocytes # (Auto) 0.6 x10^3/uL (1.0-4.8) Monocytes # (Auto) 0.8 x10^3/uL (0.0-1.1) Eosinophils # (Auto) 0.1 x10^3/uL (0.0-0.7) Basophils # (Auto) 0.0 x10^3/uL (0.0-0.2) Sodium Level 140 mmol/L (136-145) Potassium Level 4.6 mmol/L (3.5-5.1) Chloride Level 100 mmol/L (98-107) Carbon Dioxide Level 25 mmol/L (21-32) Anion Gap 15 (6-14) Blood Urea Nitrogen 46 mg/dL (8-26) Creatinine 5.9 mg/dL (0.7-1.3) Estimated GFR (Cockcroft-Gault) 10.2 Glucose Level 301 mg/dL (70-99) Calcium Level 8.1 mg/dL (8.5-10.1) Test 02/15/19 12:20 Glucose (Fingerstick) 278 mg/dL (70-99) Laboratory Tests Test 02/14/19 17:49 02/15/19 00:22 02/15/19 05:59 02/15/19 06:00 Glucose (Fingerstick) 152 mg/dL (70-99) 284 mg/dL (70-99) 289 mg/dL (70-99) White Blood Count 8.7 x10^3/uL (4.0-11.0) Red Blood Count 2.81 x10^6/uL (4.30-5.70) Hemoglobin 9.2 g/dL (13.0-17.5) Hematocrit 27.0 % (39.0-53.0) Mean Corpuscular Volume 96 fL (79-100) Mean Corpuscular Hemoglobin 33 pg (25-35) Mean Corpuscular Hemoglobin Concent 34 g/dL (31-37) Red Cell Distribution Width 13.1 % (11.5-14.5) Platelet Count 133 x10^3/uL (140-400) Neutrophils (%) (Auto) 83 % (31-73) Lymphocytes (%) (Auto) 6 % (24-48) Monocytes (%) (Auto) 9 % (0-9) Eosinophils (%) (Auto) 2 % (0-3) Basophils (%) (Auto) 0 % (0-3) Neutrophils # (Auto) 7.2 x10^3/uL (1.8-7.7) Lymphocytes # (Auto) 0.6 x10^3/uL (1.0-4.8) Monocytes # (Auto) 0.8 x10^3/uL (0.0-1.1) Eosinophils # (Auto) 0.1 x10^3/uL (0.0-0.7) Basophils # (Auto) 0.0 x10^3/uL (0.0-0.2) Sodium Level 140 mmol/L (136-145) Potassium Level 4.6 mmol/L (3.5-5.1) Chloride Level 100 mmol/L (98-107) Carbon Dioxide Level 25 mmol/L (21-32) Anion Gap 15 (6-14) Blood Urea Nitrogen 46 mg/dL (8-26) Creatinine 5.9 mg/dL (0.7-1.3) Estimated GFR (Cockcroft-Gault) 10.2 Glucose Level 301 mg/dL (70-99) Calcium Level 8.1 mg/dL (8.5-10.1) Test 02/15/19 12:20 Glucose (Fingerstick) 278 mg/dL (70-99) Microbiology 02/12/19 Throat Culture - Final, Complete 02/12/19 - Final, Complete 02/12/19 Blood Culture - Preliminary, Resulted NO GROWTH AFTER 3 DAYS 02/11/19 Urine Culture - Final, Complete 02/11/19 Urine Culture Result 1 (SABINE) - Final, Complete Medications Current Medications Sodium Chloride 1,000 ml @ 1,000 mls/hr 1X ONCE IV Last administered on 02/11/19at 19:19; Start 02/11/19 at 19:15; Stop 02/11/19 at 20:14; Status DC Sodium Chloride 1,000 ml @ 1,000 mls/hr 1X ONCE IV Last administered on 02/11/19at 20:21; Start 02/11/19 at 20:00; Stop 02/11/19 at 20:59; Status DC Insulin Human Regular (HumuLIN R VIAL) 9 unit 1X ONCE SQ Last administered on 02/11/19at 20:21; Start 02/11/19 at 20:00; Stop 02/11/19 at 20:01; Status DC Insulin Human Regular 150 unit/ Sodium Chloride 151.5 ml @ 0 mls/hr CONT PRN PRN IV PER PROTOCOL Last administered on 02/13/19at 06:10; Start 02/11/19 at 20:00 Potassium Chloride/Water 100 ml @ 100 mls/hr PRN Q1HR PRN IV SEE COMMENTS; Start 02/11/19 at 20:00 Potassium Chloride/Water 100 ml @ 100 mls/hr PRN Q1HR PRN IV SEE COMMENTS; Start 02/11/19 at 20:00 Potassium Chloride/Water 100 ml @ 100 mls/hr PRN Q1HR PRN IV SEE COMMENTS; Start 02/11/19 at 20:00 Magnesium Sulfate/ Dextrose 100 ml @ 25 mls/hr PRN DAILY PRN IV SEE COMMENTS; Start 02/12/19 at 09:00 Aspirin (Aspirin Rectal Supp) 300 mg 1X ONCE MI Last administered on 02/11/19at 20:21; Start 02/11/19 at 20:00; Stop 02/11/19 at 20:03; Status DC Insulin Human Regular 150 ml @ 0 mls/hr CONT PRN PRN IV PER PROTOCOL Last administered on 02/11/19at 20:21; Start 02/11/19 at 20:15; Stop 02/11/19 at 23:00; Status DC Ondansetron HCl (Zofran) 4 mg PRN Q8HRS PRN IV NAUSEA/VOMITING; Start 02/11/19 at 20:30; Stop 02/12/19 at 20:29; Status DC Calcium Gluconate (Calcium Gluconate) 1,000 mg 1X ONCE IVP Last administered on 02/11/19at 21:29; Start 02/11/19 at 21:00; Stop 02/11/19 at 21:01; Status DC Sodium Chloride 1,000 ml @ 500 mls/hr 1X ONCE IV Last administered on 02/11/19at 21:29; Start 02/11/19 at 21:30; Stop 02/11/19 at 23:29; Status DC Lidocaine/Sodium Bicarbonate (Buffered Lidocaine 1%) 3 ml STK-MED ONCE .ROUTE ; Start 02/11/19 at 22:37; Stop 02/11/19 at 22:37; Status DC Lidocaine/Sodium Bicarbonate (Buffered Lidocaine 1%) 3 ml 1X ONCE IJ Last administered on 02/11/19at 23:10; Start 02/11/19 at 23:00; Stop 02/11/19 at 23:01; Status DC Sodium Chloride 1,000 ml @ 1,000 mls/hr Q1H PRN IV hypotension; Start 02/11/19 at 23:23; Stop 02/12/19 at 05:22; Status DC Sodium Chloride 1,000 ml @ 400 mls/hr Q2H30M PRN IV PATENCY; Start 02/11/19 at 23:23; Stop 02/12/19 at 11:22; Status DC Info (PHARMACY MONITORING -- do not chart) 1 each PRN DAILY PRN MC SEE COMMENTS; Start 02/11/19 at 23:30; Status UNV Info (PHARMACY MONITORING -- do not chart) 1 each PRN DAILY PRN MC SEE COMMENTS; Start 02/11/19 at 23:30; Stop 02/12/19 at 18:07; Status DC Sodium Chloride 1,000 ml @ 250 mls/hr Q4H IV Last administered on 02/12/19at 00:20; Start 02/12/19 at 00:14; Stop 02/12/19 at 01:32; Status DC Piperacillin Sod/ Tazobactam Sod 3.375 gm/Sodium Chloride 50 ml @ 100 mls/hr Q6HRS IV ; Start 02/12/19 at 01:00; Status UNV Piperacillin Sod/ Tazobactam Sod 2.25 gm/Sodium Chloride 50 ml @ 100 mls/hr Q8HRS IV Last administered on 02/15/19at 06:08; Start 02/12/19 at 01:00 Dextrose/Sodium Chloride 1,000 ml @ 250 mls/hr Q4H IV Last administered on 02/12/19at 15:39; Start 02/12/19 at 01:32; Stop 02/12/19 at 21:05; Status DC Lorazepam (Ativan Inj) 1 mg PRN Q10MIN PRN IV SEIZURE; Start 02/12/19 at 03:00 Sodium Chloride 250 ml @ 250 mls/hr 1X ONCE IV Last administered on 02/12/19at 05:25; Start 02/12/19 at 05:00; Stop 02/12/19 at 05:59; Status DC Azithromycin 500 mg/Sodium Chloride 250 ml @ 250 mls/hr 1X ONCE IV Last administered on 02/12/19at 05:25; Start 02/12/19 at 05:00; Stop 02/12/19 at 05:59; Status DC Potassium Chloride/Water 50 ml @ 25 mls/hr Q2H IV Last administered on 02/12/19at 10:06; Start 02/12/19 at 08:00; Stop 02/12/19 at 11:59; Status DC Azithromycin 250 ml @ 250 mls/hr 1X ONCE IV ; Start 02/13/19 at 05:00; Stop 02/12/19 at 11:37; Status DC Azithromycin 500 mg/Sodium Chloride 250 ml @ 250 mls/hr 1X ONCE IV Last a dministered on 02/13/19at 04:33; Start 02/13/19 at 05:00; Stop 02/13/19 at 05:59; Status DC Potassium Chloride/Water 50 ml @ 25 mls/hr Q2H IV Last administered on 02/12/19at 18:18; Start 02/12/19 at 16:00; Stop 02/12/19 at 19:59; Status DC Sodium Chloride 1,000 ml @ 1,000 mls/hr Q1H PRN IV hypotension; Start 02/12/19 at 15:00; Stop 02/12/19 at 20:59; Status DC Sodium Chloride (Normal Saline Flush) 10 ml 1X PRN PRN IV AP catheter pack; Start 02/12/19 at 15:00; Stop 02/13/19 at 14:17; Status DC Sodium Chloride (Normal Saline Flush) 10 ml 1X PRN PRN IV [employer] catheter pack; Start 02/12/19 at 15:00; Stop 02/13/19 at 14:17; Status DC Sodium Chloride 1,000 ml @ 400 mls/hr Q2H30M PRN IV PATENCY; Start 02/12/19 at 15:00; Stop 02/13/19 at 02:59; Status DC Info (PHARMACY MONITORING -- do not chart) 1 each PRN DAILY PRN MC SEE COMMENTS; Start 02/12/19 at 18:00; Stop 02/12/19 at 18:07; Status DC Info (PHARMACY MONITORING -- do not chart) 1 each PRN DAILY PRN MC SEE COMMENTS; Start 02/12/19 at 18:00 Sodium Chloride 1,000 ml @ 75 mls/hr [id number] IV Last administered on 02/15/19at 06:08; Start 02/12/19 at 20:45 Dextrose (Dextrose 50%-Water Syringe) 12.5 gm PRN Q15MIN PRN IV SEE COMMENTS Last administered on 02/13/19at 11:44; Start 02/12/19 at 20:45 Hydralazine HCl (Apresoline Inj) 10 mg PRN Q4HRS PRN IVP ELEVATED BP, SEE COMMENTS Last administered on 02/12/19at 20:49; Start 02/12/19 at 20:45 Insulin Human Lispro (HumaLOG) 0-5 UNITS Q6HRS SQ Last administered on 02/15/19at 12:23; Start 02/13/19 at 00:00 Albuterol Sulfate (Ventolin Neb Soln) 2.5 mg 1X ONCE NEB Last administered on 02/13/19at 01:01; Start 02/13/19 at 01:00; Stop 02/13/19 at 01:01; Status DC Ondansetron HCl (Zofran) 4 mg PRN Q6HRS PRN IV NAUSEA/VOMITING Last administered on 02/15/19at 06:08; Start 02/13/19 at 03:30 Scopolamine (Transderm-Scop) 1 patch 1X ONCE TD Last administered on 02/13/19at 13:44; Start 02/13/19 at 11:45; Stop 02/13/19 at 11:46; Status DC Azithromycin 500 mg/Sodium Chloride 250 ml @ 250 mls/hr 1X ONCE IV Last administered on 02/14/19at 04:32; Start 02/14/19 at 05:00; Stop 02/14/19 at 05:59; Status DC Sodium Chloride 1,000 ml @ 1,000 mls/hr Q1H PRN IV hypotension; Start 02/14/19 at 11:09; Stop 02/14/19 at 17:08; Status DC Albumin Human 200 ml @ 200 mls/hr 1X PRN PRN IV Hypotension; Start 02/14/19 at 11:15; Stop 02/14/19 at 17:14; Status DC Sodium Chloride (Normal Saline Flush) 10 ml 1X PRN PRN IV AP catheter pack; Start 02/14/19 at 11:15; Stop 02/15/19 at 11:14; Status DC Sodium Chloride (Normal Saline Flush) 10 ml 1X PRN PRN IV [employer] catheter pack; Start 02/14/19 at 11:15; Stop 02/15/19 at 11:14; Status DC Sodium Chloride 1,000 ml @ 400 mls/hr Q2H30M PRN IV PATENCY; Start 02/14/19 at 11:09; Stop 02/14/19 at 23:08; Status DC Info (PHARMACY MONITORING -- do not chart) 1 each PRN DAILY PRN MC SEE COMMENTS; Start 02/14/19 at 11:15; Status UNV Info (PHARMACY MONITORING -- do not chart) 1 each PRN DAILY PRN MC SEE COMMENTS; Start 02/14/19 at 11:15; Status UNV Active Scripts Active Reported Metformin Hcl 500 Mg Tablet 500 Mg PO BIDWMEALS Vitals/I & O Vital Sign - Last 24 Hours 02/14/19 02/14/19 02/14/19 02/14/19 18:00 19:00 20:00 20:00 Temp 98.7 98.7 Pulse 106 112 107 Resp 33 30 30 B/P (MAP) 133/67 (89) 105/72 (83) 105/72 (83) Pulse Ox 98 O2 Delivery Venturi Mask Venturi Mask Nasal Cannula Nasal Cannula O2 Flow Rate 15.0 15.0 6.0 02/14/19 02/14/19 02/14/19 02/15/19 21:00 22:00 23:00 00:00 Temp 98.6 98.6 Pulse 105 107 103 103 Resp 21 20 26 21 B/P (MAP) 132/72 (92) 133/67 (89) 154/71 (98) 122/62 (82) Pulse Ox 98 97 96 97 O2 Delivery Nasal Cannula Nasal Cannula Nasal Cannula Nasal Cannula O2 Flow Rate 6.0 3.0 3.0 3.0 02/15/19 02/15/19 02/15/19 02/15/19 00:00 01:00 02:00 03:00 Pulse 102 96 96 Resp 24 23 21 B/P (MAP) 122/62 (82) 118/61 (80) 145/80 (101) Pulse Ox 97 96 98 O2 Delivery Nasal Cannula Nasal Cannula Nasal Cannula Nasal Cannula O2 Flow Rate 3.0 3.0 3.0 02/15/19 02/15/19 02/15/19 02/15/19 04:00 04:00 05:00 06:00 Temp 98.4 98.4 Pulse 90 93 95 Resp 25 24 24 B/P (MAP) 119/68 (85) 145/74 (97) 145/74 (97) Pulse Ox 97 93 93 O2 Delivery Nasal Cannula Nasal Cannula Nasal Cannula Nasal Cannula O2 Flow Rate 3.0 2.0 2.0 02/15/19 02/15/19 02/15/19 02/15/19 07:20 07:52 08:13 08:58 Temp 98.1 98.1 Pulse 92 91 89 Resp 22 25 28 B/P (MAP) 141/73 (95) 140/65 (90) 138/65 (89) O2 Delivery Room Air Nasal Cannula Nasal Cannula Nasal Cannula O2 Flow Rate 2.0 2.0 2.0 02/15/19 02/15/19 02/15/19 02/15/19 10:00 10:57 12:15 12:26 Temp 98.6 98.6 98.6 98.6 Pulse 94 95 90 Resp 20 20 B/P (MAP) 165/77 (106) 161/82 (108) 157/81 (106) Pulse Ox 92 96 94 O2 Delivery Nasal Cannula Nasal Cannula Nasal Cannula Nasal Cannula O2 Flow Rate 2.0 2.0 2.0 2.0 02/15/19 02/15/19 02/15/19 02/15/19 13:00 14:06 15:01 16:23 Temp 98.4 98.6 98.3 98.0 98.4 98.6 98.3 98.0 Pulse 96 87 82 110 Resp 26 B/P (MAP) 125/71 (89) 139/66 (90) 174/71 (105) 134/68 (90) Pulse Ox 96 96 96 98 O2 Delivery Nasal Cannula Nasal Cannula Nasal Cannula Room Air O2 Flow Rate 2.0 2.0 2.0 02/15/19 16:30 O2 Delivery Nasal Cannula O2 Flow Rate 2.0 Intake and Output 02/14/19 02/14/19 02/15/19 15:00 23:00 07:00 Intake Total 10 ml 800 ml 815 ml Output Total 165 ml 95 ml 55 ml Balance -155 ml 705 ml 760 ml JH HERNADEZ MD Feb 15, 2019 17:50
[2019-02-15] MEDS: MORPHINE SULFATE 2 MG/ML VIAL. IV PRN (22:07)
[2019-02-16] MEDS: INSULIN LISPRO 300 UNITS/3 ML INSULN.PEN. SQ SCH ×4 (00:41→18:00)
[2019-02-16 03:47] VITALS: BP 151/83
[2019-02-16] MEDS: PIPERACILLIN/TAZOBACTAM 2.25 GM in IV NORMAL SALINE 50ML 50 ML IV SCH ×3 (05:46→21:13)
[2019-02-16 06:12] LABS: CALCIUM 8.2 mg/dL (8.5-10.1); CREATININE 4.2 mg/dL (0.7-1.3); POTASSIUM 4.3 mmol/L (3.5-5.1)
[2019-02-16 06:49] LABS: BASO % 0 % (0-3); EOS # 0.3 x10^3/uL (0.0-0.7); EOS % 3 % (0-3); HEMATOCRIT 26.8 % (39.0-53.0); HEMOGLOBIN 9.1 g/dL (13.0-17.5); LYMPH # 0.5 x10^3/uL (1.0-4.8); LYMPH % 6 % (24-48); MEAN CORPUSCULAR HEMOGLOBIN 33 pg (25-35); MEAN CORPUSCULAR HGB CONC 34 g/dL (31-37); MEAN CORPUSCULAR VOLUME 96 fL (79-100); MONO # 0.9 x10^3/uL (0.0-1.1); MONO % 10 % (0-9); NEUT # 7.5 x10^3/uL (1.8-7.7); NEUT % 80 % (31-73); PLATELET COUNT 118 x10^3/uL (140-400); RED BLOOD COUNT 2.79 x10^6/uL (4.30-5.70); RED CELL DISTRIBUTION WIDTH 12.6 % (11.5-14.5); WHITE BLOOD COUNT 9.4 x10^3/uL (4.0-11.0)
[2019-02-16 07:52] VITALS: BP 155/80
--- NOTE | 2019-02-16 09:31 | PDOC ---
Infectious Disease Note Subjective Subjective Participating in physical therapy Unsteady gait Matt pain/SOA/N/V/D/F/C ROS ROS per HPI Vital Sign Vital Signs Vital Signs Date Time Temp Pulse Resp B/P (MAP) Pulse Ox O2 Delivery O2 Flow Rate FiO2 02/16/19 07:52 97.9 92 18 155/80 (105) 95 Nasal Cannula 2.0 97.9 Physical Exam PHYSICAL EXAM GENERAL: Up in the chair, alert, smiling, performing exercises HEENT: Pupils equally round. Oral cavity dry, black tongue NECK: Supple. LUNGS: Improved aeration, nonlabored. HEART: S1 and S2. ABDOMEN: Nondistended, soft, no guarding. Bowel sounds present. GENITOURINARY: Indwelling G[place] in place. EXTREMITIES: No gross edema or cyanosis. SKIN: Warm to touch without signs of rash. NEUROLOGIC: Alert and oriented x 3 RIJ/HDC (8-6) without signs of any complications. Labs Lab Laboratory Tests Test 02/15/19 12:20 02/15/19 17:37 02/16/19 00:17 02/16/19 05:45 Glucose (Fingerstick) 278 mg/dL (70-99) 132 mg/dL (70-99) 205 mg/dL (70-99) White Blood Count 9.4 x10^3/uL (4.0-11.0) Red Blood Count 2.79 x10^6/uL (4.30-5.70) Hemoglobin 9.1 g/dL (13.0-17.5) Hematocrit 26.8 % (39.0-53.0) Mean Corpuscular Volume 96 fL (79-100) Mean Corpuscular Hemoglobin 33 pg (25-35) Mean Corpuscular Hemoglobin Concent 34 g/dL (31-37) Red Cell Distribution Width 12.6 % (11.5-14.5) Platelet Count 118 x10^3/uL (140-400) Neutrophils (%) (Auto) 80 % (31-73) Lymphocytes (%) (Auto) 6 % (24-48) Monocytes (%) (Auto) 10 % (0-9) Eosinophils (%) (Auto) 3 % (0-3) Basophils (%) (Auto) 0 % (0-3) Neutrophils # (Auto) 7.5 x10^3/uL (1.8-7.7) Lymphocytes # (Auto) 0.5 x10^3/uL (1.0-4.8) Monocytes # (Auto) 0.9 x10^3/uL (0.0-1.1) Eosinophils # (Auto) 0.3 x10^3/uL (0.0-0.7) Basophils # (Auto) 0.0 x10^3/uL (0.0-0.2) Sodium Level 140 mmol/L (136-145) Potassium Level 4.3 mmol/L (3.5-5.1) Chloride Level 100 mmol/L (98-107) Carbon Dioxide Level 25 mmol/L (21-32) Anion Gap 15 (6-14) Blood Urea Nitrogen 32 mg/dL (8-26) Creatinine 4.2 mg/dL (0.7-1.3) Estimated GFR (Cockcroft-Gault) 15.0 Glucose Level 231 mg/dL (70-99) Calcium Level 8.2 mg/dL (8.5-10.1) Test 02/16/19 06:30 Glucose (Fingerstick) 225 mg/dL (70-99) Micro Microbiology 02/12/19 Blood Culture - Preliminary, Resulted NO GROWTH AFTER 4 DAY URINE CULTURE RES 1 Final No growth THROAT CULT RESULT 1 Final Comment Routine respiratory shanel Objective Assessment Aspiration - pharyngitis is better - cults neg Dysphagia, failed swallow study - NPO Fever - Group A rapid neg. Leukocytosis - better Acute encephalopathy - improved SARAH requiring HD DKA Seizure Plan Plan of Care Continue Zosyn, renal dose Off azithromycin, Cultures neg Monitor labs PT/OT Clinically improving - looks well D/w family Attending Co-Sign Attending Co-Sign The patient was seen and interviewed as well as examined at the bedside. The chart was reviewed. The case was discussed. Agree with the plan of care. TANIKA JOSEPH APRN Feb 16, 2019 09:31 NEAL MIRANDA MD Feb 16, 2019 12:38
[2019-02-16] MEDS: MORPHINE SULFATE 2 MG/ML VIAL. IV PRN ×2 (10:39→23:05)
--- NOTE | 2019-02-16 10:44 | PDOC ---
PROGRESS NOTES Chief Complaint Chief Complaint impression Acute DKA, resolved Altered mental status, resolved Seizure, resolved SARAH now on HD per nephro Sonographically unremarkable kidneys, with slightly limited evaluation of the left kidney due to respiratory motion. Hyperkalemia, resolved T2DM Leukocytosis Lactic acidosis Dysphagia /// Moderate to moderate-severe oropharyngeal dysphagia w/ pt demonstrating s/s aspiration on own secretions, Unsteady gait 38 min pt exam, chart review, > 50% of time spent with exam, chart review, pt care coordination History of Present Illness History of Present Illness 02/16/19: continue zosyn, renally dosed cultures negative, including group A strep continue to adjust insulin as needed 02/14/19 Pt seen and examined in ICU [place] to BSD Pt sitting up in chair and communicative Anion gap 17 (14, 17 today) DW RN DW family 02/13/19 Pt seen and examined in ICU Venti mask at 50% O2 Pt sitting up in bed marked improvement Anion gap trending down (21, 14 today) Vitals Vitals Vital Signs Date Time Temp Pulse Resp B/P (MAP) Pulse Ox O2 Delivery O2 Flow Rate FiO2 02/16/19 10:39 Nasal Cannula 2.0 02/16/19 07:52 97.9 92 18 155/80 (105) 95 97.9 Physical Exam Physical Exam GENERAL: Up in the chair, HEENT: Pupils equally round. Oral cavity dry, black tongue NECK: Supple. LUNGS: Improved aeration, nonlabored. HEART: S1 and S2. ABDOMEN: Nondistended, soft, no guarding. Bowel sounds present. GENITOURINARY: Indwelling [place] in place. EXTREMITIES: No gross edema or cyanosis. SKIN: Warm to touch without signs of rash. NEUROLOGIC: Alert and oriented x 3 RIJ/HDC (8-6) without signs of any complications. General: Alert, Oriented X3, Cooperative, No acute distress, Other (non-verbal ) Heart: Regular rate, Normal S1, Other (distant heart tones) Lungs: Crackles Abdomen: Soft, No tenderness Extremities: No clubbing, No edema, Normal pulses Skin: No breakdown, No significant lesion Labs LABS Impressions: Moderate to moderate-severe oropharyngeal dysphagia w/ pt demonstra ting s/s aspiration on own secretions, single ice chips and 1/8 tsp amounts of honey thick liquids. Pt demonstrated absent swallow w/ ice chip trial at today's evaluation as well as 02/14 screening. When swallow was produced w/ honey thick liquid trial, hyolaryngeal excursion was decreased in upward and anterior movement followed by overt s/s aspiration and decreased O2 sats. Additionally pt presents w/ abnormal phonation quality and decreased phonation intensity which pt and pt's mother report are not pt's baseline. Undetermined if general weakness from current medical condition is the primary factor in pt's dysphagia vs other cause. NPO is indicated and duration of need for NPO is unknown at this time. Aggressive oral care indicated lane given pt's dentition status and pt's high potential to aspirate own saliva. Recommendations: Strict NPO for nutrition and meds. Oral care. [employer] f/u for dysphagia and to assess readiness for PO intake. D/w w/ RN Don who will contact physician about need to remain NPO and discuss nutrition options while NPO. EXAM: Renal sonogram. HISTORY: Renal insufficiency. TECHNIQUE: Sonographic imaging of the kidneys and bladder was performed. COMPARISON: None. FINDINGS: The right kidney measures 11.3 cm [id number]. The left kidney measures 10.4 cm [id number]. No solid or cystic renal lesion is seen. There is no hydronephrosis. There is a [place] catheter within a decompressed bladder. The left kidney is not well seen due to respiratory motion. IMPRESSION: Sonographically unremarkable kidneys, with slightly limited evaluation of the left kidney due to respiratory motion. Electronically signed by: Kaya Stone MD (02/13/2019 11:40 AM) [facility] Laboratory Tests Test 02/15/19 12:20 02/15/19 17:37 02/16/19 00:17 02/16/19 05:45 Glucose (Fingerstick) 278 mg/dL (70-99) 132 mg/dL (70-99) 205 mg/dL (70-99) White Blood Count 9.4 x10^3/uL (4.0-11.0) Red Blood Count 2.79 x10^6/uL (4.30-5.70) Hemoglobin 9.1 g/dL (13.0-17.5) Hematocrit 26.8 % (39.0-53.0) Mean Corpuscular Volume 96 fL (79-100) Mean Corpuscular Hemoglobin 33 pg (25-35) Mean Corpuscular Hemoglobin Concent 34 g/dL (31-37) Red Cell Distribution Width 12.6 % (11.5-14.5) Platelet Count 118 x10^3/uL (140-400) Neutrophils (%) (Auto) 80 % (31-73) Lymphocytes (%) (Auto) 6 % (24-48) Monocytes (%) (Auto) 10 % (0-9) Eosinophils (%) (Auto) 3 % (0-3) Basophils (%) (Auto) 0 % (0-3) Neutrophils # (Auto) 7.5 x10^3/uL (1.8-7.7) Lymphocytes # (Auto) 0.5 x10^3/uL (1.0-4.8) Monocytes # (Auto) 0.9 x10^3/uL (0.0-1.1) Eosinophils # (Auto) 0.3 x10^3/uL (0.0-0.7) Basophils # (Auto) 0.0 x10^3/uL (0.0-0.2) Sodium Level 140 mmol/L (136-145) Potassium Level 4.3 mmol/L (3.5-5.1) Chloride Level 100 mmol/L (98-107) Carbon Dioxide Level 25 mmol/L (21-32) Anion Gap 15 (6-14) Blood Urea Nitrogen 32 mg/dL (8-26) Creatinine 4.2 mg/dL (0.7-1.3) Estimated GFR (Cockcroft-Gault) 15.0 Glucose Level 231 mg/dL (70-99) Calcium Level 8.2 mg/dL (8.5-10.1) Test 02/16/19 06:30 Glucose (Fingerstick) 225 mg/dL (70-99) Assessment and Plan Assessmemt and Plan Problems Medical Problems: (1) DKA (diabetic ketoacidoses) Status: Acute (2) Elevated troponin Status: Acute (3) Renal failure Status: Acute Comment Review of Relevant I have reviewed the following items mindy (where applicable) has been applied. Labs Laboratory Tests Test 02/14/19 12:22 02/14/19 17:49 02/15/19 00:22 02/15/19 05:59 Glucose (Fingerstick) 355 mg/dL (70-99) 152 mg/dL (70-99) 284 mg/dL (70-99) 289 mg/dL (70-99) Test 02/15/19 06:00 02/15/19 12:20 02/15/19 17:37 02/16/19 00:17 White Blood Count 8.7 x10^3/uL (4.0-11.0) Red Blood Count 2.81 x10^6/uL (4.30-5.70) Hemoglobin 9.2 g/dL (13.0-17.5) Hematocrit 27.0 % (39.0-53.0) Mean Corpuscular Volume 96 fL (79-100) Mean Corpuscular Hemoglobin 33 pg (25-35) Mean Corpuscular Hemoglobin Concent 34 g/dL (31-37) Red Cell Distribution Width 13.1 % (11.5-14.5) Platelet Count 133 x10^3/uL (140-400) Neutrophils (%) (Auto) 83 % (31-73) Lymphocytes (%) (Auto) 6 % (24-48) Monocytes (%) (Auto) 9 % (0-9) Eosinophils (%) (Auto) 2 % (0-3) Basophils (%) (Auto) 0 % (0-3) Neutrophils # (Auto) 7.2 x10^3/uL (1.8-7.7) Lymphocytes # (Auto) 0.6 x10^3/uL (1.0-4.8) Monocytes # (Auto) 0.8 x10^3/uL (0.0-1.1) Eosinophils # (Auto) 0.1 x10^3/uL (0.0-0.7) Basophils # (Auto) 0.0 x10^3/uL (0.0-0.2) Sodium Level 140 mmol/L (136-145) Potassium Level 4.6 mmol/L (3.5-5.1) Chloride Level 100 mmol/L (98-107) Carbon Dioxide Level 25 mmol/L (21-32) Anion Gap 15 (6-14) Blood Urea Nitrogen 46 mg/dL (8-26) Creatinine 5.9 mg/dL (0.7-1.3) Estimated GFR (Cockcroft-Gault) 10.2 Glucose Level 301 mg/dL (70-99) Calcium Level 8.1 mg/dL (8.5-10.1) Glucose (Fingerstick) 278 mg/dL (70-99) 132 mg/dL (70-99) 205 mg/dL (70-99) Test 02/16/19 05:45 02/16/19 06:30 White Blood Count 9.4 x10^3/uL (4.0-11.0) Red Blood Count 2.79 x10^6/uL (4.30-5.70) Hemoglobin 9.1 g/dL (13.0-17.5) Hematocrit 26.8 % (39.0-53.0) Mean Corpuscular Volume 96 fL (79-100) Mean Corpuscular Hemoglobin 33 pg (25-35) Mean Corpuscular Hemoglobin Concent 34 g/dL (31-37) Red Cell Distribution Width 12.6 % (11.5-14.5) Platelet Count 118 x10^3/uL (140-400) Neutrophils (%) (Auto) 80 % (31-73) Lymphocytes (%) (Auto) 6 % (24-48) Monocytes (%) (Auto) 10 % (0-9) Eosinophils (%) (Auto) 3 % (0-3) Basophils (%) (Auto) 0 % (0-3) Neutrophils # (Auto) 7.5 x10^3/uL (1.8-7.7) Lymphocytes # (Auto) 0.5 x10^3/uL (1.0-4.8) Monocytes # (Auto) 0.9 x10^3/uL (0.0-1.1) Eosinophils # (Auto) 0.3 x10^3/uL (0.0-0.7) Basophils # (Auto) 0.0 x10^3/uL (0.0-0.2) Sodium Level 140 mmol/L (136-145) Potassium Level 4.3 mmol/L (3.5-5.1) Chloride Level 100 mmol/L (98-107) Carbon Dioxide Level 25 mmol/L (21-32) Anion Gap 15 (6-14) Blood Urea Nitrogen 32 mg/dL (8-26) Creatinine 4.2 mg/dL (0.7-1.3) Estimated GFR (Cockcroft-Gault) 15.0 Glucose Level 231 mg/dL (70-99) Calcium Level 8.2 mg/dL (8.5-10.1) Glucose (Fingerstick) 225 mg/dL (70-99) Laboratory Tests Test 02/15/19 12:20 02/15/19 17:37 02/16/19 00:17 02/16/19 05:45 Glucose (Fingerstick) 278 mg/dL (70-99) 132 mg/dL (70-99) 205 mg/dL (70-99) White Blood Count 9.4 x10^3/uL (4.0-11.0) Red Blood Count 2.79 x10^6/uL (4.30-5.70) Hemoglobin 9.1 g/dL (13.0-17.5) Hematocrit 26.8 % (39.0-53.0) Mean Corpuscular Volume 96 fL (79-100) Mean Corpuscular Hemoglobin 33 pg (25-35) Mean Corpuscular Hemoglobin Concent 34 g/dL (31-37) Red Cell Distribution Width 12.6 % (11.5-14.5) Platelet Count 118 x10^3/uL (140-400) Neutrophils (%) (Auto) 80 % (31-73) Lymphocytes (%) (Auto) 6 % (24-48) Monocytes (%) (Auto) 10 % (0-9) Eosinophils (%) (Auto) 3 % (0-3) Basophils (%) (Auto) 0 % (0-3) Neutrophils # (Auto) 7.5 x10^3/uL (1.8-7.7) Lymphocytes # (Auto) 0.5 x10^3/uL (1.0-4.8) Monocytes # (Auto) 0.9 x10^3/uL (0.0-1.1) Eosinophils # (Auto) 0.3 x10^3/uL (0.0-0.7) Basophils # (Auto) 0.0 x10^3/uL (0.0-0.2) Sodium Level 140 mmol/L (136-145) Potassium Level 4.3 mmol/L (3.5-5.1) Chloride Level 100 mmol/L (98-107) Carbon Dioxide Level 25 mmol/L (21-32) Anion Gap 15 (6-14) Blood Urea Nitrogen 32 mg/dL (8-26) Creatinine 4.2 mg/dL (0.7-1.3) Estimated GFR (Cockcroft-Gault) 15.0 Glucose Level 231 mg/dL (70-99) Calcium Level 8.2 mg/dL (8.5-10.1) Test 02/16/19 06:30 Glucose (Fingerstick) 225 mg/dL (70-99) Microbiology 02/12/19 Throat Culture - Final, Complete 02/12/19 - Final, Complete 02/12/19 Blood Culture - Preliminary, Resulted NO GROWTH AFTER 4 DAYS 02/11/19 Urine Culture - Final, Complete 02/11/19 Urine Culture Result 1 (SABINE) - Final, Complete Medications Current Medications Sodium Chloride 1,000 ml @ 1,000 mls/hr 1X ONCE IV Last administered on 02/11/19at 19:19; Start 02/11/19 at 19:15; Stop 02/11/19 at 20:14; Status DC Sodium Chloride 1,000 ml @ 1,000 mls/hr 1X ONCE IV Last administered on 02/11/19at 20:21; Start 02/11/19 at 20:00; Stop 02/11/19 at 20:59; Status DC Insulin Human Regular (HumuLIN R VIAL) 9 unit 1X ONCE SQ Last administered on 02/11/19at 20:21; Start 02/11/19 at 20:00; Stop 02/11/19 at 20:01; Status DC Insulin Human Regular 150 unit/ Sodium Chloride 151.5 ml @ 0 mls/hr CONT PRN PRN IV PER PROTOCOL Last administered on 02/13/19at 06:10; Start 02/11/19 at 20:00 Potassium Chloride/Water 100 ml @ 100 mls/hr PRN Q1HR PRN IV SEE COMMENTS; Start 02/11/19 at 20:00 Potassium Chloride/Water 100 ml @ 100 mls/hr PRN Q1HR PRN IV SEE COMMENTS; Start 02/11/19 at 20:00 Potassium Chloride/Water 100 ml @ 100 mls/hr PRN Q1HR PRN IV SEE COMMENTS; Start 02/11/19 at 20:00 Magnesium Sulfate/ Dextrose 100 ml @ 25 mls/hr PRN DAILY PRN IV SEE COMMENTS; Start 02/12/19 at 09:00 Aspirin (Aspirin Rectal Supp) 300 mg 1X ONCE MO Last administered on 02/11/19at 20:21; Start 02/11/19 at 20:00; Stop 02/11/19 at 20:03; Status DC Insulin Human Regular 150 ml @ 0 mls/hr CONT PRN PRN IV PER PROTOCOL Last administered on 02/11/19at 20:21; Start 02/11/19 at 20:15; Stop 02/11/19 at 23:00; Status DC Ondansetron HCl (Zofran) 4 mg PRN Q8HRS PRN IV NAUSEA/VOMITING; Start 02/11/19 at 20:30; Stop 02/12/19 at 20:29; Status DC Calcium Gluconate (Calcium Gluconate) 1,000 mg 1X ONCE IVP Last administered on 02/11/19at 21:29; Start 02/11/19 at 21:00; Stop 02/11/19 at 21:01; Status DC Sodium Chloride 1,000 ml @ 500 mls/hr 1X ONCE IV Last administered on 02/11/19at 21:29; Start 02/11/19 at 21:30; Stop 02/11/19 at 23:29; Status DC Lidocaine/Sodium Bicarbonate (Buffered Lidocaine 1%) 3 ml STK-MED ONCE .ROUTE ; Start 02/11/19 at 22:37; Stop 02/11/19 at 22:37; Status DC Lidocaine/Sodium Bicarbonate (Buffered Lidocaine 1%) 3 ml 1X ONCE IJ Last administered on 02/11/19at 23:10; Start 02/11/19 at 23:00; Stop 02/11/19 at 23:01; Status DC Sodium Chloride 1,000 ml @ 1,000 mls/hr Q1H PRN IV hypotension; Start 02/11/19 at 23:23; Stop 02/12/19 at 05:22; Status DC Sodium Chloride 1,000 ml @ 400 mls/hr Q2H30M PRN IV PATENCY; Start 02/11/19 at 23:23; Stop 02/12/19 at 11:22; Status DC Info (PHARMACY MONITORING -- do not chart) 1 each PRN DAILY PRN MC SEE COMMENTS; Start 02/11/19 at 23:30; Status UNV Info (PHARMACY MONITORING -- do not chart) 1 each PRN DAILY PRN MC SEE COMMENTS; Start 02/11/19 at 23:30; Stop 02/12/19 at 18:07; Status DC Sodium Chloride 1,000 ml @ 250 mls/hr Q4H IV Last administered on 02/12/19at 00:20; Start 02/12/19 at 00:14; Stop 02/12/19 at 01:32; Status DC Piperacillin Sod/ Tazobactam Sod 3.375 gm/Sodium Chloride 50 ml @ 100 mls/hr Q6HRS IV ; Start 02/12/19 at 01:00; Status UNV Piperacillin Sod/ Tazobactam Sod 2.25 gm/Sodium Chloride 50 ml @ 100 mls/hr Q8HRS IV Last administered on 02/16/19at 05:46; Start 02/12/19 at 01:00 Dextrose/Sodium Chloride 1,000 ml @ 250 mls/hr Q4H IV Last administered on 02/12/19at 15:39; Start 02/12/19 at 01:32; Stop 02/12/19 at 21:05; Status DC Lorazepam (Ativan Inj) 1 mg PRN Q10MIN PRN IV SEIZURE; Start 02/12/19 at 03:00 Sodium Chloride 250 ml @ 250 mls/hr 1X ONCE IV Last administered on 02/12/19at 05:25; Start 02/12/19 at 05:00; Stop 02/12/19 at 05:59; Status DC Azithromycin 500 mg/Sodium Chloride 250 ml @ 250 mls/hr 1X ONCE IV Last administered on 02/12/19at 05:25; Start 02/12/19 at 05:00; Stop 02/12/19 at 05:59; Status DC Potassium Chloride/Water 50 ml @ 25 mls/hr Q2H IV Last administered on 02/12/19at 10:06; Start 02/12/19 at 08:00; Stop 02/12/19 at 11:59; Status DC Azithromycin 250 ml @ 250 mls/hr 1X ONCE IV ; Start 02/13/19 at 05:00; Stop 02/12/19 at 11:37; Status DC Azithromycin 500 mg/Sodium Chloride 250 ml @ 250 mls/hr 1X ONCE IV Last administered on 02/13/19at 04:33; Start 02/13/19 at 05:00; Stop 02/13/19 at 05:59; Status DC Potassium Chloride/Water 50 ml @ 25 mls/hr Q2H IV Last administered on 02/12/19at 18:18; Start 02/12/19 at 16:00; Stop 02/12/19 at 19:59; Status DC Sodium Chloride 1,000 ml @ 1,000 mls/hr Q1H PRN IV hypotension; Start 02/12/19 at 15:00; Stop 02/12/19 at 20:59; Status DC Sodium Chloride (Normal Saline Flush) 10 ml 1X PRN PRN IV AP catheter pack; Start 02/12/19 at 15:00; Stop 02/13/19 at 14:17; Status DC Sodium Chloride (Normal Saline Flush) 10 ml 1X PRN PRN IV CORRECTIONS OFFICER catheter pack; Start 02/12/19 at 15:00; Stop 02/13/19 at 14:17; Status DC Sodium Chloride 1,000 ml @ 400 mls/hr Q2H30M PRN IV PATENCY; Start 02/12/19 at 15:00; Stop 02/13/19 at 02:59; Status DC Info (PHARMACY MONITORING -- do not chart) 1 each PRN DAILY PRN MC SEE COMMENTS; Start 02/12/19 at 18:00; Stop 02/12/19 at 18:07; Status DC Info (PHARMACY MONITORING -- do not chart) 1 each PRN DAILY PRN MC SEE COMMENTS; Start 02/12/19 at 18:00 Sodium Chloride 1,000 ml @ 75 mls/hr [id number] IV Last administered on 02/15/19at 22:35; Start 02/12/19 at 20:45 Dextrose (Dextrose 50%-Water Syringe) 12.5 gm PRN Q15MIN PRN IV SEE COMMENTS Last administered on 02/13/19at 11:44; Start 02/12/19 at 20:45 Hydralazine HCl (Apresoline Inj) 10 mg PRN Q4HRS PRN IVP ELEVATED BP, SEE COMMENTS Last administered on 02/12/19at 20:49; Start 02/12/19 at 20:45 Insulin Human Lispro (HumaLOG) 0-5 UNITS Q6HRS SQ Last administered on 02/15/19at 12:23; Start 02/13/19 at 00:00 Albuterol Sulfate (Ventolin Neb Soln) 2.5 mg 1X ONCE NEB Last administered on 02/13/19at 01:01; Start 02/13/19 at 01:00; Stop 02/13/19 at 01:01; Status DC Ondansetron HCl (Zofran) 4 mg PRN Q6HRS PRN IV NAUSEA/VOMITING Last administered on 02/15/19at 06:08; Start 02/13/19 at 03:30 Scopolamine (Transderm-Scop) 1 patch 1X ONCE TD Last administered on 02/13/19at 13:44; Start 02/13/19 at 11:45; Stop 02/13/19 at 11:46; Status DC Azithromycin 500 mg/Sodium Chloride 250 ml @ 250 mls/hr 1X ONCE IV Last administered on 02/14/19at 04:32; Start 02/14/19 at 05:00; Stop 02/14/19 at 05:59; Status DC Sodium Chloride 1,000 ml @ 1,000 mls/hr Q1H PRN IV hypotension; Start 02/14/19 at 11:09; Stop 02/14/19 at 17:08; Status DC Albumin Human 200 ml @ 200 mls/hr 1X PRN PRN IV Hypotension; Start 02/14/19 at 11:15; Stop 02/14/19 at 17:14; Status DC Sodium Chloride (Normal Saline Flush) 10 ml 1X PRN PRN IV AP catheter pack; Start 02/14/19 at 11:15; Stop 02/15/19 at 11:14; Status DC Sodium Chloride (Normal Saline Flush) 10 ml 1X PRN PRN IV CORRECTIONS OFFICER catheter pack; Start 02/14/19 at 11:15; Stop 02/15/19 at 11:14; Status DC Sodium Chloride 1,000 ml @ 400 mls/hr Q2H30M PRN IV PATENCY; Start 02/14/19 at 11:09; Stop 02/14/19 at 23:08; Status DC Info (PHARMACY MONITORING -- do not chart) 1 each PRN DAILY PRN MC SEE COMMENTS; Start 02/14/19 at 11:15; Status UNV Info (PHARMACY MONITORING -- do not chart) 1 each PRN DAILY PRN MC SEE COMMENTS; Start 02/14/19 at 11:15; Status UNV Morphine Sulfate (Morphine Sulfate) 2 mg PRN Q4HRS PRN IV PAIN Last administered on 02/16/19at 10:39; Start 02/15/19 at 21:30 Active Scripts Active Reported Metformin Hcl 500 Mg Tablet 500 Mg PO BIDWMEALS Vitals/I & O Vital Sign - Last 24 Hours 02/15/19 02/15/19 02/15/19 02/15/19 10:57 12:15 12:26 13:00 Temp 98.6 98.6 98.4 98.6 98.6 98.4 Pulse 95 90 96 Resp B/P (MAP) 161/82 (108) 157/81 (106) 125/71 (89) Pulse Ox 96 94 96 O2 Delivery Nasal Cannula Nasal Cannula Nasal Cannula Nasal Cannula O2 Flow Rate 2.0 2.0 2.0 2.0 02/15/19 02/15/19 02/15/19 02/15/19 14:06 15:01 16:23 16:30 Temp 98.6 98.3 98.0 98.6 98.3 98.0 Pulse 87 82 110 Resp B/P (MAP) 139/66 (90) 174/71 (105) 134/68 (90) Pulse Ox 96 96 98 O2 Delivery Nasal Cannula Nasal Cannula Room Air Nasal Cannula O2 Flow Rate 2.0 2.0 2.0 02/15/19 02/15/19 02/15/19 02/16/19 17:00 20:00 23:49 03:47 Temp 98.3 98.5 98.3 98.5 Pulse 92 103 93 Resp 18 B/P (MAP) 142/84 (103) 150/85 (106) 151/83 (105) Pulse Ox 98 93 95 O2 Delivery Room Air Nasal Cannula Nasal Cannula Nasal Cannula O2 Flow Rate 2.0 2.0 2.0 02/16/19 02/16/19 07:52 10:39 Temp 97.9 97.9 Pulse 92 Resp 18 B/P (MAP) 155/80 (105) Pulse Ox 95 O2 Delivery Nasal Cannula Nasal Cannula O2 Flow Rate 2.0 2.0 Intake and Output 02/15/19 02/15/19 02/16/19 14:59 22:59 06:59 Intake Total 0 ml 1741 ml 0 ml Output Total 205 ml 60 ml 400 ml Balance -205 ml 1681 ml -400 ml RUFINO GRANDE MD Feb 16, 2019 10:44
--- NOTE | 2019-02-16 10:46 | PDOC1 ---
History and Physical Date of Admission Date of Admission DATE: 02/11/19 TIME: 10:45 Identification/Chief Complaint Chief Complaint seen in er , presents by private vehicle with his family with report of being "ill �1 week ". Patient reports has been unable to keep any medication or fluid down. Patient reports history of diabetes mellitus. Reports his been noncompliant with his medications. he reports he has felt so weak that he has been unable to ambulate over the last 2 days. Family is concerned as patient intermittently is confused. Denies fever or chills. Reports sore throat. Denies trauma. Denies chest pain or headache. History of presents illness limited due to altered mental status. Past Medical History Past Medical History Past Medical History Past Medical History: Diabetes-Type II Past Medical History Limited due to altered mental status Past Surgical History: No Surgical History Past Surgical History Limited due to altered mental status Additional Information: Nonsmoker Alcohol Use: None Drug Use: None Social History Limited due to altered mental status fhx diabetes Cardiovascular: Hyperlipidemia Endocrine: Diabetes Past Surgical History Past Surgical History: No pertinent history Family History Family History: Diabetes Social History Smoke: No ALCOHOL: none Drugs: None Current Problem List Problem List Problems Medical Problems: (1) DKA (diabetic ketoacidoses) Status: Acute (2) Elevated troponin Status: Acute (3) Renal failure Status: Acute Current Medications Current Medications Current Medications Sodium Chloride 1,000 ml @ 1,000 mls/hr 1X ONCE IV Last administered on 02/11/19at 19:19; Start 02/11/19 at 19:15; Stop 02/11/19 at 20:14; Status DC Sodium Chloride 1,000 ml @ 1,000 mls/hr 1X ONCE IV Last administered on 02/11/19at 20:21; Start 02/11/19 at 20:00; Stop 02/11/19 at 20:59; Status DC Insulin Human Regular (HumuLIN R VIAL) 9 unit 1X ONCE SQ Last administered on 02/11/19at 20:21; Start 02/11/19 at 20:00; Stop 02/11/19 at 20:01; Status DC Insulin Human Regular 150 unit/ Sodium Chloride 151.5 ml @ 0 mls/hr CONT PRN PRN IV PER PROTOCOL Last administered on 02/13/19at 06:10; Start 02/11/19 at 20:00 Potassium Chloride/Water 100 ml @ 100 mls/hr PRN Q1HR PRN IV SEE COMMENTS; Start 02/11/19 at 20:00 Potassium Chloride/Water 100 ml @ 100 mls/hr PRN Q1HR PRN IV SEE COMMENTS; Start 02/11/19 at 20:00 Potassium Chloride/Water 100 ml @ 100 mls/hr PRN Q1HR PRN IV SEE COMMENTS; Start 02/11/19 at 20:00 Magnesium Sulfate/ Dextrose 100 ml @ 25 mls/hr PRN DAILY PRN IV SEE COMMENTS; Start 02/12/19 at 09:00 Aspirin (Aspirin Rectal Supp) 300 mg 1X ONCE NV Last administered on 02/11/19at 20:21; Start 02/11/19 at 20:00; Stop 02/11/19 at 20:03; Status DC Insulin Human Regular 150 ml @ 0 mls/hr CONT PRN PRN IV PER PROTOCOL Last administered on 02/11/19at 20:21; Start 02/11/19 at 20:15; Stop 02/11/19 at 23:00; Status DC Ondansetron HCl (Zofran) 4 mg PRN Q8HRS PRN IV NAUSEA/VOMITING; Start 02/11/19 at 20:30; Stop 02/12/19 at 20:29; Status DC Calcium Gluconate (Calcium Gluconate) 1,000 mg 1X ONCE IVP Last administered on 02/11/19at 21:29; Start 02/11/19 at 21:00; Stop 02/11/19 at 21:01; Status DC Sodium Chloride 1,000 ml @ 500 mls/hr 1X ONCE IV Last administered on 02/11/19at 21:29; Start 02/11/19 at 21:30; Stop 02/11/19 at 23:29; Status DC Lidocaine/Sodium Bicarbonate (Buffered Lidocaine 1%) 3 ml STK-MED ONCE .ROUTE ; Start 02/11/19 at 22:37; Stop 02/11/19 at 22:37; Status DC Lidocaine/Sodium Bicarbonate (Buffered Lidocaine 1%) 3 ml 1X ONCE IJ Last administered on 02/11/19at 23:10; Start 02/11/19 at 23:00; Stop 02/11/19 at 23:01; Status DC Sodium Chloride 1,000 ml @ 1,000 mls/hr Q1H PRN IV hypotension; Start 02/11/19 at 23:23; Stop 02/12/19 at 05:22; Status DC Sodium Chloride 1,000 ml @ 400 mls/hr Q2H30M PRN IV PATENCY; Start 02/11/19 at 23:23; Stop 02/12/19 at 11:22; Status DC Info (PHARMACY MONITORING -- do not chart) 1 each PRN DAILY PRN MC SEE COMMENTS; Start 02/11/19 at 23:30; Status UNV Info (PHARMACY MONITORING -- do not chart) 1 each PRN DAILY PRN MC SEE COMMENTS; Start 02/11/19 at 23:30; Stop 02/12/19 at 18:07; Status DC Sodium Chloride 1,000 ml @ 250 mls/hr Q4H IV Last administered on 02/12/19at 00:20; Start 02/12/19 at 00:14; Stop 02/12/19 at 01:32; Status DC Piperacillin Sod/ Tazobactam Sod 3.375 gm/Sodium Chloride 50 ml @ 100 mls/hr Q6HRS IV ; Start 02/12/19 at 01:00; Status UNV Piperacillin Sod/ Tazobactam Sod 2.25 gm/Sodium Chloride 50 ml @ 100 mls/hr Q8HRS IV Last administered on 02/16/19at 05:46; Start 02/12/19 at 01:00 Dextrose/Sodium Chloride 1,000 ml @ 250 mls/hr Q4H IV Last administered on 02/12/19at 15:39; Start 02/12/19 at 01:32; Stop 02/12/19 at 21:05; Status DC Lorazepam (Ativan Inj) 1 mg PRN Q10MIN PRN IV SEIZURE; Start 02/12/19 at 03:00 Sodium Chloride 250 ml @ 250 mls/hr 1X ONCE IV Last administered on 02/12/19at 05:25; Start 02/12/19 at 05:00; Stop 02/12/19 at 05:59; Status DC Azithromycin 500 mg/Sodium Chloride 250 ml @ 250 mls/hr 1X ONCE IV Last administered on 02/12/19at 05:25; Start 02/12/19 at 05:00; Stop 02/12/19 at 05:59; Status DC Potassium Chloride/Water 50 ml @ 25 mls/hr Q2H IV Last administered on 02/12/19at 10:06; Start 02/12/19 at 08:00; Stop 02/12/19 at 11:59; Status DC Azithromycin 250 ml @ 250 mls/hr 1X ONCE IV ; Start 02/13/19 at 05:00; Stop 02/12/19 at 11:37; Status DC Azithromycin 500 mg/Sodium Chloride 250 ml @ 250 mls/hr 1X ONCE IV Last administered on 02/13/19at 04:33; Start 02/13/19 at 05:00; Stop 02/13/19 at 05:59; Status DC Potassium Chloride/Water 50 ml @ 25 mls/hr Q2H IV Last administered on 02/12/19at 18:18; Start 02/12/19 at 16:00; Stop 02/12/19 at 19:59; Status DC Sodium Chloride 1,000 ml @ 1,000 mls/hr Q1H PRN IV hypotension; Start 02/12/19 at 15:00; Stop 02/12/19 at 20:59; Status DC Sodium Chloride (Normal Saline Flush) 10 ml 1X PRN PRN IV AP catheter pack; Start 02/12/19 at 15:00; Stop 02/13/19 at 14:17; Status DC Sodium Chloride (Normal Saline Flush) 10 ml 1X PRN PRN IV ABRASIVE SAWYER catheter pack; Start 02/12/19 at 15:00; Stop 02/13/19 at 14:17; Status DC Sodium Chloride 1,000 ml @ 400 mls/hr Q2H30M PRN IV PATENCY; Start 02/12/19 at 15:00; Stop 02/13/19 at 02:59; Status DC Info (PHARMACY MONITORING -- do not chart) 1 each PRN DAILY PRN MC SEE COMMENTS; Start 02/12/19 at 18:00; Stop 02/12/19 at 18:07; Status DC Info (PHARMACY MONITORING -- do not chart) 1 each PRN DAILY PRN MC SEE COMMENTS; Start 02/12/19 at 18:00 Sodium Chloride 1,000 ml @ 75 mls/hr [id number] IV Last administered on 02/15/19at 22:35; Start 02/12/19 at 20:45 Dextrose (Dextrose 50%-Water Syringe) 12.5 gm PRN Q15MIN PRN IV SEE COMMENTS Last administered on 02/13/19at 11:44; Start 02/12/19 at 20:45 Hydralazine HCl (Apresoline Inj) 10 mg PRN Q4HRS PRN IVP ELEVATED BP, SEE COMMENTS Last administered on 02/12/19at 20:49; Start 02/12/19 at 20:45 Insulin Human Lispro (HumaLOG) 0-5 UNITS Q6HRS SQ Last administered on 02/15/19at 12:23; Start 02/13/19 at 00:00 Albuterol Sulfate (Ventolin Neb Soln) 2.5 mg 1X ONCE NEB Last administered on 02/13/19at 01:01; Start 02/13/19 at 01:00; Stop 02/13/19 at 01:01; Status DC Ondansetron HCl (Zofran) 4 mg PRN Q6HRS PRN IV NAUSEA/VOMITING Last administered on 02/15/19at 06:08; Start 02/13/19 at 03:30 Scopolamine (Transderm-Scop) 1 patch 1X ONCE TD Last administered on 02/13/19at 13:44; Start 02/13/19 at 11:45; Stop 02/13/19 at 11:46; Status DC Azithromycin 500 mg/Sodium Chloride 250 ml @ 250 mls/hr 1X ONCE IV Last administered on 02/14/19at 04:32; Start 02/14/19 at 05:00; Stop 02/14/19 at 05:59; Status DC Sodium Chloride 1,000 ml @ 1,000 mls/hr Q1H PRN IV hypotension; Start 02/14/19 at 11:09; Stop 02/14/19 at 17:08; Status DC Albumin Human 200 ml @ 200 mls/hr 1X PRN PRN IV Hypotension; Start 02/14/19 at 11:15; Stop 02/14/19 at 17:14; Status DC Sodium Chloride (Normal Saline Flush) 10 ml 1X PRN PRN IV AP catheter pack; Start 02/14/19 at 11:15; Stop 02/15/19 at 11:14; Status DC Sodium Chloride (Normal Saline Flush) 10 ml 1X PRN PRN IV ABRASIVE SAWYER catheter pack; Start 02/14/19 at 11:15; Stop 02/15/19 at 11:14; Status DC Sodium Chloride 1,000 ml @ 400 mls/hr Q2H30M PRN IV PATENCY; Start 02/14/19 at 11:09; Stop 02/14/19 at 23:08; Status DC Info (PHARMACY MONITORING -- do not chart) 1 each PRN DAILY PRN MC SEE COMMENTS; Start 02/14/19 at 11:15; Status UNV Info (PHARMACY MONITORING -- do not chart) 1 each PRN DAILY PRN MC SEE COMMENTS; Start 02/14/19 at 11:15; Status UNV Morphine Sulfate (Morphine Sulfate) 2 mg PRN Q4HRS PRN IV PAIN Last administered on 02/16/19at 10:39; Start 02/15/19 at 21:30 Active Scripts Active Reported Metformin Hcl 500 Mg Tablet 500 Mg PO BIDWMEALS Allergies Allergies: Coded Allergies: No Known Drug Allergies (Unverified , 02/11/19) ROS Review of System HPI HPI 53-year-old male presents by private vehicle with his family with report of viry martinez "ill �1 week ". Patient reports has been unable to keep any medication or fluid down. Patient reports history of diabetes mellitus. Reports his been noncompliant with his medications. She reports he has felt so weak that he has been unable to ambulate over the last 2 days. Family is concerned as patient intermittently is confused. Denies fever or chills. Reports sore throat. Denies trauma. Denies chest pain or headache. History of presents illness limited due to altered mental status. Review of Systems Review of Systems Constitutional: Denies fever or chills Eyes: Denies redness or eye pain HENT: Denies nasal congestion; reports sore throat Respiratory: Denies cough or shortness of breath Cardiovascular: Denies chest pain or palpitations GI: Reports nausea and vomiting : Denies dysuria or hematuria Musculoskeletal: Denies back pain Integument: Denies rash or skin lesions Neurologic: Reports generalized weakness Review of systems limited due to patient's altered mental status Current Medications Current Medications Current Medications Medications (Trade) Dose Ordered Sig/Ismael Start Time Stop Time Status Last Admin Dose Admin Aspirin (Aspirin Rectal Supp) 300 mg 1X ONCE 02/11/19 20:00 02/11/19 20:03 DC 02/11/19 20:21 300 MG Calcium Gluconate (Calcium Gluconate) 1,000 mg 1X ONCE 02/11/19 21:00 02/11/19 21:01 DC 02/11/19 21:29 1,000 MG Insulin Human Regular 150 ml @ 0 mls/hr CONT PRN PRN 02/11/19 20:15 02/11/19 23:00 02/11/19 20:21 1 MLS/HR Insulin Human Regular (HumuLIN R VIAL) 9 unit 1X ONCE 02/11/19 20:00 02/11/19 20:01 DC 02/11/19 20:21 9 UNIT Insulin Human Regular 150 unit/ Sodium Chloride 151.5 ml @ 0 mls/hr CONT PRN PRN 02/11/19 20:00 Ondansetron HCl (Zofran) 4 mg PRN Q8HRS PRN 02/11/19 20:30 02/12/19 20:29 Potassium Chloride/Water 100 ml @ 100 mls/hr PRN Q1HR PRN 02/11/19 20:00 Sodium Chloride 1,000 ml @ 1,000 mls/hr 1X ONCE 02/11/19 20:00 02/11/19 20:59 DC 02/11/19 20:21 1,000 MLS/HR Allergies Allergies Allergies Coded Allergies Type Severity Reaction Last Updated Verified No Known Drug Allergies 02/11/19 No Physical Exam Physical Exam Constitutional: Well developed, well nourished, no acute distress, dehydration noted HENT: Normocephalic, atraumatic, oropharynx dry Eyes: PERRL, EOMI, conjunctiva normal, no discharge Neck: Normal range of motion, no tenderness, supple, no meningeal signs noted Cardiovascular: Heart rate tachycardic, regular rhythm Lungs & Thorax: Bilateral breath sounds clear to auscultation, no wheezing Abdomen: Soft, no tenderness Skin: Warm, dry, no erythema, dry Back: No tenderness, no CVA tenderness Extremities: No tenderness, ROM intact, no edema Neurologic: Alert and oriented x3, slow to respond, generalized weakness, strength to BLE 4/5 and BUE 4/5, no focal deficits noted Psychologic: Affect normal, judgement normal Vitals Vitals Vital Signs Date Time Temp Pulse Resp B/P (MAP) Pulse Ox O2 Delivery O2 Flow Rate FiO2 02/16/19 10:39 Nasal Cannula 2.0 02/16/19 07:52 97.9 92 18 155/80 (105) 95 97.9 Labs Labs Laboratory Tests Test 02/14/19 12:22 02/14/19 17:49 02/15/19 00:22 02/15/19 05:59 Glucose (Fingerstick) 355 mg/dL (70-99) 152 mg/dL (70-99) 284 mg/dL (70-99) 289 mg/dL (70-99) Test 02/15/19 06:00 02/15/19 12:20 02/15/19 17:37 02/16/19 00:17 White Blood Count 8.7 x10^3/uL (4.0-11.0) Red Blood Count 2.81 x10^6/uL (4.30-5.70) Hemoglobin 9.2 g/dL (13.0-17.5) Hematocrit 27.0 % (39.0-53.0) Mean Corpuscular Volume 96 fL (79-100) Mean Corpuscular Hemoglobin 33 pg (25-35) Mean Corpuscular Hemoglobin Concent 34 g/dL (31-37) Red Cell Distribution Width 13.1 % (11.5-14.5) Platelet Count 133 x10^3/uL (140-400) Neutrophils (%) (Auto) 83 % (31-73) Lymphocytes (%) (Auto) 6 % (24-48) Monocytes (%) (Auto) 9 % (0-9) Eosinophils (%) (Auto) 2 % (0-3) Basophils (%) (Auto) 0 % (0-3) Neutrophils # (Auto) 7.2 x10^3/uL (1.8-7.7) Lymphocytes # (Auto) 0.6 x10^3/uL (1.0-4.8) Monocytes # (Auto) 0.8 x10^3/uL (0.0-1.1) Eosinophils # (Auto) 0.1 x10^3/uL (0.0-0.7) Basophils # (Auto) 0.0 x10^3/uL (0.0-0.2) Sodium Level 140 mmol/L (136-145) Potassium Level 4.6 mmol/L (3.5-5.1) Chloride Level 100 mmol/L (98-107) Carbon Dioxide Level 25 mmol/L (21-32) Anion Gap 15 (6-14) Blood Urea Nitrogen 46 mg/dL (8-26) Creatinine 5.9 mg/dL (0.7-1.3) Estimated GFR (Cockcroft-Gault) 10.2 Glucose Level 301 mg/dL (70-99) Calcium Level 8.1 mg/dL (8.5-10.1) Glucose (Fingerstick) 278 mg/dL (70-99) 132 mg/dL (70-99) 205 mg/dL (70-99) Test 02/16/19 05:45 02/16/19 06:30 White Blood Count 9.4 x10^3/uL (4.0-11.0) Red Blood Count 2.79 x10^6/uL (4.30-5.70) Hemoglobin 9.1 g/dL (13.0-17.5) Hematocrit 26.8 % (39.0-53.0) Mean Corpuscular Volume 96 fL (79-100) Mean Corpuscular Hemoglobin 33 pg (25-35) Mean Corpuscular Hemoglobin Concent 34 g/dL (31-37) Red Cell Distribution Width 12.6 % (11.5-14.5) Platelet Count 118 x10^3/uL (140-400) Neutrophils (%) (Auto) 80 % (31-73) Lymphocytes (%) (Auto) 6 % (24-48) Monocytes (%) (Auto) 10 % (0-9) Eosinophils (%) (Auto) 3 % (0-3) Basophils (%) (Auto) 0 % (0-3) Neutrophils # (Auto) 7.5 x10^3/uL (1.8-7.7) Lymphocytes # (Auto) 0.5 x10^3/uL (1.0-4.8) Monocytes # (Auto) 0.9 x10^3/uL (0.0-1.1) Eosinophils # (Auto) 0.3 x10^3/uL (0.0-0.7) Basophils # (Auto) 0.0 x10^3/uL (0.0-0.2) Sodium Level 140 mmol/L (136-145) Potassium Level 4.3 mmol/L (3.5-5.1) Chloride Level 100 mmol/L (98-107) Carbon Dioxide Level 25 mmol/L (21-32) Anion Gap 15 (6-14) Blood Urea Nitrogen 32 mg/dL (8-26) Creatinine 4.2 mg/dL (0.7-1.3) Estimated GFR (Cockcroft-Gault) 15.0 Glucose Level 231 mg/dL (70-99) Calcium Level 8.2 mg/dL (8.5-10.1) Glucose (Fingerstick) 225 mg/dL (70-99) Laboratory Tests Test 02/15/19 12:20 02/15/19 17:37 02/16/19 00:17 02/16/19 05:45 Glucose (Fingerstick) 278 mg/dL (70-99) 132 mg/dL (70-99) 205 mg/dL (70-99) White Blood Count 9.4 x10^3/uL (4.0-11.0) Red Blood Count 2.79 x10^6/uL (4.30-5.70) Hemoglobin 9.1 g/dL (13.0-17.5) Hematocrit 26.8 % (39.0-53.0) Mean Corpuscular Volume 96 fL (79-100) Mean Corpuscular Hemoglobin 33 pg (25-35) Mean Corpuscular Hemoglobin Concent 34 g/dL (31-37) Red Cell Distribution Width 12.6 % (11.5-14.5) Platelet Count 118 x10^3/uL (140-400) Neutrophils (%) (Auto) 80 % (31-73) Lymphocytes (%) (Auto) 6 % (24-48) Monocytes (%) (Auto) 10 % (0-9) Eosinophils (%) (Auto) 3 % (0-3) Basophils (%) (Auto) 0 % (0-3) Neutrophils # (Auto) 7.5 x10^3/uL (1.8-7.7) Lymphocytes # (Auto) 0.5 x10^3/uL (1.0-4.8) Monocytes # (Auto) 0.9 x10^3/uL (0.0-1.1) Eosinophils # (Auto) 0.3 x10^3/uL (0.0-0.7) Basophils # (Auto) 0.0 x10^3/uL (0.0-0.2) Sodium Level 140 mmol/L (136-145) Potassium Level 4.3 mmol/L (3.5-5.1) Chloride Level 100 mmol/L (98-107) Carbon Dioxide Level 25 mmol/L (21-32) Anion Gap 15 (6-14) Blood Urea Nitrogen 32 mg/dL (8-26) Creatinine 4.2 mg/dL (0.7-1.3) Estimated GFR (Cockcroft-Gault) 15.0 Glucose Level 231 mg/dL (70-99) Calcium Level 8.2 mg/dL (8.5-10.1) Test 02/16/19 06:30 Glucose (Fingerstick) 225 mg/dL (70-99) Images Images CT head without contrast 02/11/2019 7:07 PM INDICATION: Altered mental status COMPARISON: None available TECHNIQUE: Multiple axial CT images of the head were obtained from skull base through the vertex without intravenous contrast. FINDINGS: Head: Ventricles, sulci and basal cisterns are within normal limits. There is no hydrocephalus. Keith-white matter differentiation is normal. There is no acute intracranial hemorrhage. There is no mass, mass effect or midline shift. Posterior fossa is normal in appearance. Visualized portions of the orbits are normal. Paranasal sinuses are well aerated. Mastoid air cells are well aerated. Scalp and calvaria are normal. IMPRESSION: No acute intracranial hemorrhage. 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
[2019-02-16 11:13] VITALS: BP 111/62
[2019-02-16 15:21] VITALS: BP 152/79
[2019-02-16] MEDS ORDERED: IV NORMAL SALINE 1000ML BAG 1,000 ML IV SCH (18:00)
[2019-02-16 19:24] VITALS: BP 170/80
[2019-02-16] MEDS: hydrALAZINE 20 MG/ML VIAL. IVP PRN (21:14)
[2019-02-16 23:48] VITALS: BP 162/70
[2019-02-17] MEDS: INSULIN LISPRO 300 UNITS/3 ML INSULN.PEN. SQ SCH ×4 (00:29→18:00)
[2019-02-17 03:56] VITALS: BP 106/60
[2019-02-17] MEDS: PIPERACILLIN/TAZOBACTAM 2.25 GM in IV NORMAL SALINE 50ML 50 ML IV SCH (05:54)
[2019-02-17 06:12] LABS: BASO % 0 % (0-3); EOS # 0.3 x10^3/uL (0.0-0.7); EOS % 3 % (0-3); HEMATOCRIT 26.1 % (39.0-53.0); HEMOGLOBIN 8.9 g/dL (13.0-17.5); LYMPH # 0.4 x10^3/uL (1.0-4.8); LYMPH % 4 % (24-48); MEAN CORPUSCULAR HEMOGLOBIN 33 pg (25-35); MEAN CORPUSCULAR HGB CONC 34 g/dL (31-37); MEAN CORPUSCULAR VOLUME 96 fL (79-100); MONO % 9 % (0-9); NEUT # 8.5 x10^3/uL (1.8-7.7); NEUT % 83 % (31-73); PLATELET COUNT 125 x10^3/uL (140-400); RED BLOOD COUNT 2.71 x10^6/uL (4.30-5.70); RED CELL DISTRIBUTION WIDTH 12.9 % (11.5-14.5); WHITE BLOOD COUNT 10.2 x10^3/uL (4.0-11.0)
[2019-02-17 06:19] LABS: CALCIUM 8.3 mg/dL (8.5-10.1); CREATININE 6.5 mg/dL (0.7-1.3); GFR 9.1; POTASSIUM 4.2 mmol/L (3.5-5.1)
[2019-02-17 07:00] VITALS: BP 157/79
[2019-02-17] MEDS ORDERED: IV NORMAL SALINE 1000ML BAG 1,000 ML IV PRN ×2 (07:39)
[2019-02-17] MEDS ORDERED: DIALYSIS PATIENT. MC PRN (07:45)
[2019-02-17] MEDS ORDERED: diphenhydrAMINE 50 MG/ML VIAL IV PRN ×2 (07:45)
--- NOTE | 2019-02-17 10:36 | NUR ---
SW following pt. Discussed with VICENTE Figueroa, Pt is a transfer from ICU and is self pay. ID following and IV Zosyn. PT/OT recommends Acute rehab- pt is min assist/standby with roller walker-walked 5 feet. SW unable to do rehab screen as pt is self pay. Will continue to follow.
--- NOTE | 2019-02-17 10:42 | PDOC ---
PROGRESS NOTES Chief Complaint Chief Complaint impression Acute DKA, resolved Altered mental status, resolved Seizure, resolved SARAH now on HD per nephro Sonographically unremarkable kidneys, with slightly limited evaluation of the left kidney due to respiratory motion. Hyperkalemia, resolved T2DM Leukocytosis Lactic acidosis Dysphagia /// Moderate to moderate-severe oropharyngeal dysphagia w/ pt demonstrating s/s aspiration on own secretions, Unsteady gait 29 min pt exam, chart review, > 50% of time spent with exam, chart review, pt care coordination History of Present Illness History of Present Illness 02/16/19: continue zosyn, renally dosed cultures negative, including group A strep continue to adjust insulin as needed 02/14/19 Pt seen and examined in ICU [place] to BSD Pt sitting up in chair and communicative Anion gap 17 (14, 17 today) DW RN DW family 02/13/19 Pt seen and examined in ICU Venti mask at 50% O2 Pt sitting up in bed marked improvement Anion gap trending down (21, 14 today) 02/17 OP HD WILL HAVE IR CONVERT TEMP TO TUNNELED HD CATHETER Vitals Vitals Vital Signs Date Time Temp Pulse Resp B/P (MAP) Pulse Ox O2 Delivery O2 Flow Rate FiO2 02/17/19 08:09 Nasal Cannula 2.0 02/17/19 07:00 97.7 87 20 157/79 (105) 94 97.7 Physical Exam Physical Exam GENERAL: Up in the chair, HEENT: Pupils equally round. Oral cavity dry, black tongue NECK: Supple. LUNGS: Improved aeration, nonlabored. HEART: S1 and S2. ABDOMEN: Nondistended, soft, no guarding. Bowel sounds present. GENITOURINARY: Indwelling [place] in place. EXTREMITIES: No gross edema or cyanosis. SKIN: Warm to touch without signs of rash. NEUROLOGIC: Alert and oriented x 3 RIJ/HDC (8-6) without signs of any complications. General: Alert, Oriented X3, Cooperative, No acute distress, Other (non-verbal ) Heart: Regular rate, Normal S1, Other (distant heart tones) Lungs: Crackles Abdomen: Soft, No tenderness Extremities: No clubbing, No edema, Normal pulses Skin: No breakdown, No significant lesion Labs LABS Laboratory Tests Test 02/16/19 11:52 02/16/19 18:20 02/17/19 00:24 02/17/19 05:58 Glucose (Fingerstick) 236 mg/dL (70-99) 227 mg/dL (70-99) 219 mg/dL (70-99) 247 mg/dL (70-99) Test 02/17/19 06:00 White Blood Count 10.2 x10^3/uL (4.0-11.0) Red Blood Count 2.71 x10^6/uL (4.30-5.70) Hemoglobin 8.9 g/dL (13.0-17.5) Hematocrit 26.1 % (39.0-53.0) Mean Corpuscular Volume 96 fL (79-100) Mean Corpuscular Hemoglobin 33 pg (25-35) Mean Corpuscular Hemoglobin Concent 34 g/dL (31-37) Red Cell Distribution Width 12.9 % (11.5-14.5) Platelet Count 125 x10^3/uL (140-400) Neutrophils (%) (Auto) 83 % (31-73) Lymphocytes (%) (Auto) 4 % (24-48) Monocytes (%) (Auto) 9 % (0-9) Eosinophils (%) (Auto) 3 % (0-3) Basophils (%) (Auto) 0 % (0-3) Neutrophils # (Auto) 8.5 x10^3/uL (1.8-7.7) Lymphocytes # (Auto) 0.4 x10^3/uL (1.0-4.8) Monocytes # (Auto) 1.0 x10^3/uL (0.0-1.1) Eosinophils # (Auto) 0.3 x10^3/uL (0.0-0.7) Basophils # (Auto) 0.0 x10^3/uL (0.0-0.2) Sodium Level 144 mmol/L (136-145) Potassium Level 4.2 mmol/L (3.5-5.1) Chloride Level 105 mmol/L (98-107) Carbon Dioxide Level 25 mmol/L (21-32) Anion Gap 14 (6-14) Blood Urea Nitrogen 49 mg/dL (8-26) Creatinine 6.5 mg/dL (0.7-1.3) Estimated GFR (Cockcroft-Gault) 9.1 Glucose Level 254 mg/dL (70-99) Calcium Level 8.3 mg/dL (8.5-10.1) Assessment and Plan Assessmemt and Plan Problems Medical Problems: (1) DKA (diabetic ketoacidoses) Status: Acute (2) Elevated troponin Status: Acute (3) Renal failure Status: Acute Comment Review of Relevant I have reviewed the following items mindy (where applicable) has been applied. Labs Laboratory Tests Test 02/15/19 12:20 02/15/19 17:37 02/16/19 00:17 02/16/19 05:45 Glucose (Fingerstick) 278 mg/dL (70-99) 132 mg/dL (70-99) 205 mg/dL (70-99) White Blood Count 9.4 x10^3/uL (4.0-11.0) Red Blood Count 2.79 x10^6/uL (4.30-5.70) Hemoglobin 9.1 g/dL (13.0-17.5) Hematocrit 26.8 % (39.0-53.0) Mean Corpuscular Volume 96 fL (79-100) Mean Corpuscular Hemoglobin 33 pg (25-35) Mean Corpuscular Hemoglobin Concent 34 g/dL (31-37) Red Cell Distribution Width 12.6 % (11.5-14.5) Platelet Count 118 x10^3/uL (140-400) Neutrophils (%) (Auto) 80 % (31-73) Lymphocytes (%) (Auto) 6 % (24-48) Monocytes (%) (Auto) 10 % (0-9) Eosinophils (%) (Auto) 3 % (0-3) Basophils (%) (Auto) 0 % (0-3) Neutrophils # (Auto) 7.5 x10^3/uL (1.8-7.7) Lymphocytes # (Auto) 0.5 x10^3/uL (1.0-4.8) Monocytes # (Auto) 0.9 x10^3/uL (0.0-1.1) Eosinophils # (Auto) 0.3 x10^3/uL (0.0-0.7) Basophils # (Auto) 0.0 x10^3/uL (0.0-0.2) Sodium Level 140 mmol/L (136-145) Potassium Level 4.3 mmol/L (3.5-5.1) Chloride Level 100 mmol/L (98-107) Carbon Dioxide Level 25 mmol/L (21-32) Anion Gap 15 (6-14) Blood Urea Nitrogen 32 mg/dL (8-26) Creatinine 4.2 mg/dL (0.7-1.3) Estimated GFR (Cockcroft-Gault) 15.0 Glucose Level 231 mg/dL (70-99) Calcium Level 8.2 mg/dL (8.5-10.1) Test 02/16/19 06:30 02/16/19 11:52 02/16/19 18:20 02/17/19 00:24 Glucose (Fingerstick) 225 mg/dL (70-99) 236 mg/dL (70-99) 227 mg/dL (70-99) 219 mg/dL (70-99) Test 02/17/19 05:58 02/17/19 06:00 Glucose (Fingerstick) 247 mg/dL (70-99) White Blood Count 10.2 x10^3/uL (4.0-11.0) Red Blood Count 2.71 x10^6/uL (4.30-5.70) Hemoglobin 8.9 g/dL (13.0-17.5) Hematocrit 26.1 % (39.0-53.0) Mean Corpuscular Volume 96 fL (79-100) Mean Corpuscular Hemoglobin 33 pg (25-35) Mean Corpuscular Hemoglobin Concent 34 g/dL (31-37) Red Cell Distribution Width 12.9 % (11.5-14.5) Platelet Count 125 x10^3/uL (140-400) Neutrophils (%) (Auto) 83 % (31-73) Lymphocytes (%) (Auto) 4 % (24-48) Monocytes (%) (Auto) 9 % (0-9) Eosinophils (%) (Auto) 3 % (0-3) Basophils (%) (Auto) 0 % (0-3) Neutrophils # (Auto) 8.5 x10^3/uL (1.8-7.7) Lymphocytes # (Auto) 0.4 x10^3/uL (1.0-4.8) Monocytes # (Auto) 1.0 x10^3/uL (0.0-1.1) Eosinophils # (Auto) 0.3 x10^3/uL (0.0-0.7) Basophils # (Auto) 0.0 x10^3/uL (0.0-0.2) Sodium Level 144 mmol/L (136-145) Potassium Level 4.2 mmol/L (3.5-5.1) Chloride Level 105 mmol/L (98-107) Carbon Dioxide Level 25 mmol/L (21-32) Anion Gap 14 (6-14) Blood Urea Nitrogen 49 mg/dL (8-26) Creatinine 6.5 mg/dL (0.7-1.3) Estimated GFR (Cockcroft-Gault) 9.1 Glucose Level 254 mg/dL (70-99) Calcium Level 8.3 mg/dL (8.5-10.1) Laboratory Tests Test 02/16/19 11:52 02/16/19 18:20 02/17/19 00:24 02/17/19 05:58 Glucose (Fingerstick) 236 mg/dL (70-99) 227 mg/dL (70-99) 219 mg/dL (70-99) 247 mg/dL (70-99) Test 02/17/19 06:00 White Blood Count 10.2 x10^3/uL (4.0-11.0) Red Blood Count 2.71 x10^6/uL (4.30-5.70) Hemoglobin 8.9 g/dL (13.0-17.5) Hematocrit 26.1 % (39.0-53.0) Mean Corpuscular Volume 96 fL (79-100) Mean Corpuscular Hemoglobin 33 pg (25-35) Mean Corpuscular Hemoglobin Concent 34 g/dL (31-37) Red Cell Distribution Width 12.9 % (11.5-14.5) Platelet Count 125 x10^3/uL (140-400) Neutrophils (%) (Auto) 83 % (31-73) Lymphocytes (%) (Auto) 4 % (24-48) Monocytes (%) (Auto) 9 % (0-9) Eosinophils (%) (Auto) 3 % (0-3) Basophils (%) (Auto) 0 % (0-3) Neutrophils # (Auto) 8.5 x10^3/uL (1.8-7.7) Lymphocytes # (Auto) 0.4 x10^3/uL (1.0-4.8) Monocytes # (Auto) 1.0 x10^3/uL (0.0-1.1) Eosinophils # (Auto) 0.3 x10^3/uL (0.0-0.7) Basophils # (Auto) 0.0 x10^3/uL (0.0-0.2) Sodium Level 144 mmol/L (136-145) Potassium Level 4.2 mmol/L (3.5-5.1) Chloride Level 105 mmol/L (98-107) Carbon Dioxide Level 25 mmol/L (21-32) Anion Gap 14 (6-14) Blood Urea Nitrogen 49 mg/dL (8-26) Creatinine 6.5 mg/dL (0.7-1.3) Estimated GFR (Cockcroft-Gault) 9.1 Glucose Level 254 mg/dL (70-99) Calcium Level 8.3 mg/dL (8.5-10.1) Microbiology 02/12/19 Throat Culture - Final, Complete 02/12/19 - Final, Complete 02/12/19 Blood Culture - Final, Complete NO GROWTH AFTER 5 DAYS 02/11/19 Urine Culture - Final, Complete 02/11/19 Urine Culture Result 1 (SABINE) - Final, Complete Medications Current Medications Sodium Chloride 1,000 ml @ 1,000 mls/hr 1X ONCE IV Last administered on 02/11/19at 19:19; Start 02/11/19 at 19:15; Stop 02/11/19 at 20:14; Status DC Sodium Chloride 1,000 ml @ 1,000 mls/hr 1X ONCE IV Last administered on 02/11/19at 20:21; Start 02/11/19 at 20:00; Stop 02/11/19 at 20:59; Status DC Insulin Human Regular (HumuLIN R VIAL) 9 unit 1X ONCE SQ Last administered on 02/11/19at 20:21; Start 02/11/19 at 20:00; Stop 02/11/19 at 20:01; Status DC Insulin Human Regular 150 unit/ Sodium Chloride 151.5 ml @ 0 mls/hr CONT PRN PRN IV PER PROTOCOL Last administered on 02/13/19at 06:10; Start 02/11/19 at 20:00 Potassium Chloride/Water 100 ml @ 100 mls/hr PRN Q1HR PRN IV SEE COMMENTS; Start 02/11/19 at 20:00 Potassium Chloride/Water 100 ml @ 100 mls/hr PRN Q1HR PRN IV SEE COMMENTS; Start 02/11/19 at 20:00 Potassium Chloride/Water 100 ml @ 100 mls/hr PRN Q1HR PRN IV SEE COMMENTS; Start 02/11/19 at 20:00 Magnesium Sulfate/ Dextrose 100 ml @ 25 mls/hr PRN DAILY PRN IV SEE COMMENTS; Start 02/12/19 at 09:00 Aspirin (Aspirin Rectal Supp) 300 mg 1X ONCE CA Last administered on 02/11/19at 20:21; Start 02/11/19 at 20:00; Stop 02/11/19 at 20:03; Status DC Insulin Human Regular 150 ml @ 0 mls/hr CONT PRN PRN IV PER PROTOCOL Last administered on 02/11/19at 20:21; Start 02/11/19 at 20:15; Stop 02/11/19 at 23:00; Status DC Ondansetron HCl (Zofran) 4 mg PRN Q8HRS PRN IV NAUSEA/VOMITING; Start 02/11/19 at 20:30; Stop 02/12/19 at 20:29; Status DC Calcium Gluconate (Calcium Gluconate) 1,000 mg 1X ONCE IVP Last administered on 02/11/19at 21:29; Start 02/11/19 at 21:00; Stop 02/11/19 at 21:01; Status DC Sodium Chloride 1,000 ml @ 500 mls/hr 1X ONCE IV Last administered on 02/11/19at 21:29; Start 02/11/19 at 21:30; Stop 02/11/19 at 23:29; Status DC Lidocaine/Sodium Bicarbonate (Buffered Lidocaine 1%) 3 ml STK-MED ONCE .ROUTE ; Start 02/11/19 at 22:37; Stop 02/11/19 at 22:37; Status DC Lidocaine/Sodium Bicarbonate (Buffered Lidocaine 1%) 3 ml 1X ONCE IJ Last administered on 02/11/19at 23:10; Start 02/11/19 at 23:00; Stop 02/11/19 at 23:01; Status DC Sodium Chloride 1,000 ml @ 1,000 mls/hr Q1H PRN IV hypotension; Start 02/11/19 at 23:23; Stop 02/12/19 at 05:22; Status DC Sodium Chloride 1,000 ml @ 400 mls/hr Q2H30M PRN IV PATENCY; Start 02/11/19 at 23:23; Stop 02/12/19 at 11:22; Status DC Info (PHARMACY MONITORING -- do not chart) 1 each PRN DAILY PRN MC SEE COMMENTS; Start 02/11/19 at 23:30; Status UNV Info (PHARMACY MONITORING -- do not chart) 1 each PRN DAILY PRN MC SEE C OMMENTS; Start 02/11/19 at 23:30; Stop 02/12/19 at 18:07; Status DC Sodium Chloride 1,000 ml @ 250 mls/hr Q4H IV Last administered on 02/12/19at 00:20; Start 02/12/19 at 00:14; Stop 02/12/19 at 01:32; Status DC Piperacillin Sod/ Tazobactam Sod 3.375 gm/Sodium Chloride 50 ml @ 100 mls/hr Q6HRS IV ; Start 02/12/19 at 01:00; Status UNV Piperacillin Sod/ Tazobactam Sod 2.25 gm/Sodium Chloride 50 ml @ 100 mls/hr Q8HRS IV Last administered on 02/17/19at 05:59; Start 02/12/19 at 01:00 Dextrose/Sodium Chloride 1,000 ml @ 250 mls/hr Q4H IV Last administered on 02/12/19at 15:39; Start 02/12/19 at 01:32; Stop 02/12/19 at 21:05; Status DC Lorazepam (Ativan Inj) 1 mg PRN Q10MIN PRN IV SEIZURE; Start 02/12/19 at 03:00 Sodium Chloride 250 ml @ 250 mls/hr 1X ONCE IV Last administered on 02/12/19at 05:25; Start 02/12/19 at 05:00; Stop 02/12/19 at 05:59; Status DC Azithromycin 500 mg/Sodium Chloride 250 ml @ 250 mls/hr 1X ONCE IV Last administered on 02/12/19at 05:25; Start 02/12/19 at 05:00; Stop 02/12/19 at 05:59; Status DC Potassium Chloride/Water 50 ml @ 25 mls/hr Q2H IV Last administered on 02/12/19at 10:06; Start 02/12/19 at 08:00; Stop 02/12/19 at 11:59; Status DC Azithromycin 250 ml @ 250 mls/hr 1X ONCE IV ; Start 02/13/19 at 05:00; Stop 02/12/19 at 11:37; Status DC Azithromycin 500 mg/Sodium Chloride 250 ml @ 250 mls/hr 1X ONCE IV Last administered on 02/13/19at 04:33; Start 02/13/19 at 05:00; Stop 02/13/19 at 05:59; Status DC Potassium Chloride/Water 50 ml @ 25 mls/hr Q2H IV Last administered on 02/12/19at 18:18; Start 02/12/19 at 16:00; Stop 02/12/19 at 19:59; Status DC Sodium Chloride 1,000 ml @ 1,000 mls/hr Q1H PRN IV hypotension; Start 02/12/19 at 15:00; Stop 02/12/19 at 20:59; Status DC Sodium Chloride (Normal Saline Flush) 10 ml 1X PRN PRN IV AP catheter pack; Start 02/12/19 at 15:00; Stop 02/13/19 at 14:17; Status DC Sodium Chloride (Normal Saline Flush) 10 ml 1X PRN PRN IV VEHICLE MONITOR TECHNICIAN catheter pack; Start 02/12/19 at 15:00; Stop 02/13/19 at 14:17; Status DC Sodium Chloride 1,000 ml @ 400 mls/hr Q2H30M PRN IV PATENCY; Start 02/12/19 at 15:00; Stop 02/13/19 at 02:59; Status DC Info (PHARMACY MONITORING -- do not chart) 1 each PRN DAILY PRN MC SEE RICH TS; Start 02/12/19 at 18:00; Stop 02/12/19 at 18:07; Status DC Info (PHARMACY MONITORING -- do not chart) 1 each PRN DAILY PRN MC SEE COMMENTS; Start 02/12/19 at 18:00; Status Cancel Sodium Chloride 1,000 ml @ 75 mls/hr [id number] IV Last administered on 02/15/19at 22:35; Start 02/12/19 at 20:45; Stop 02/16/19 at 13:48; Status DC Dextrose (Dextrose 50%-Water Syringe) 12.5 gm PRN Q15MIN PRN IV SEE COMMENTS Last administered on 02/13/19at 11:44; Start 02/12/19 at 20:45 Hydralazine HCl (Apresoline Inj) 10 mg PRN Q4HRS PRN IVP ELEVATED BP, SEE COMMENTS Last administered on 02/16/19at 21:14; Start 02/12/19 at 20:45 Insulin Human Lispro (HumaLOG) 0-5 UNITS Q6HRS SQ Last administered on 02/15/19at 12:23; Start 02/13/19 at 00:00 Albuterol Sulfate (Ventolin Neb Soln) 2.5 mg 1X ONCE NEB Last administered on 02/13/19at 01:01; Start 02/13/19 at 01:00; Stop 02/13/19 at 01:01; Status DC Ondansetron HCl (Zofran) 4 mg PRN Q6HRS PRN IV NAUSEA/VOMITING Last administered on 02/15/19at 06:08; Start 02/13/19 at 03:30 Scopolamine (Transderm-Scop) 1 patch 1X ONCE TD Last administered on 02/13/19at 13:44; Start 02/13/19 at 11:45; Stop 02/13/19 at 11:46; Status DC Azithromycin 500 mg/Sodium Chloride 250 ml @ 250 mls/hr 1X ONCE IV Last administered on 02/14/19at 04:32; Start 02/14/19 at 05:00; Stop 02/14/19 at 05:59; Status DC Sodium Chloride 1,000 ml @ 1,000 mls/hr Q1H PRN IV hypotension; Start 02/14/19 at 11:09; Stop 02/14/19 at 17:08; Status DC Albumin Human 200 ml @ 200 mls/hr 1X PRN PRN IV Hypotension; Start 02/14/19 at 11:15; Stop 02/14/19 at 17:14; Status DC Sodium Chloride (Normal Saline Flush) 10 ml 1X PRN PRN IV AP catheter pack; Start 02/14/19 at 11:15; Stop 02/15/19 at 11:14; Status DC Sodium Chloride (Normal Saline Flush) 10 ml 1X PRN PRN IV VEHICLE MONITOR TECHNICIAN catheter pack; Start 02/14/19 at 11:15; Stop 02/15/19 at 11:14; Status DC Sodium Chloride 1,000 ml @ 400 mls/hr Q2H30M PRN IV PATENCY; Start 02/14/19 at 11:09; Stop 02/14/19 at 23:08; Status DC Info (PHARMACY MONITORING -- do not chart) 1 each PRN DAILY PRN MC SEE COMMENTS; Start 02/14/19 at 11:15; Status UNV Info (PHARMACY MONITORING -- do not chart) 1 each PRN DAILY PRN MC SEE COMMENTS; Start 02/14/19 at 11:15; Status UNV Morphine Sulfate (Morphine Sulfate) 2 mg PRN Q4HRS PRN IV PAIN Last administered on 02/16/19at 23:05; Start 02/15/19 at 21:30 Sodium Chloride 1,000 ml @ 50 mls/hr Q20H IV Last administered on 02/16/19at 18:29; Start 02/16/19 at 18:00 Sodium Chloride 1,000 ml @ 1,000 mls/hr Q1H PRN IV hypotension; Start 02/17/19 at 07:39; Stop 02/17/19 at 13:38 Diphenhydramine HCl (Benadryl) 25 mg 1X PRN PRN IV ITCHING; Start 02/17/19 at 07:45; Stop 02/18/19 at 07:44 Diphenhydramine HCl (Benadryl) 25 mg 1X PRN PRN IV ITCHING; Start 02/17/19 at 07:45; Stop 02/18/19 at 07:44 Sodium Chloride 1,000 ml @ 400 mls/hr Q2H30M PRN IV PATENCY; Start 02/17/19 at 07:39; Stop 02/17/19 at 19:38 Info (PHARMACY MONITORING -- do not chart) 1 each PRN DAILY PRN MC SEE COMMENTS; Start 02/17/19 at 07:45 Active Scripts Active Reported Metformin Hcl 500 Mg Tablet 500 Mg PO BIDWMEALS Vitals/I & O Vital Sign - Last 24 Hours 02/16/19 02/16/19 02/16/19 02/16/19 11:13 12:37 15:21 19:24 Temp 97.7 98.0 97.7 97.7 98.0 97.7 Pulse 88 88 87 Resp 18 18 18 B/P (MAP) 111/62 (78) 152/79 (103) 170/80 (110) Pulse Ox 98 97 96 O2 Delivery Nasal Cannula Nasal Cannula Nasal Cannula Nasal Cannula O2 Flow Rate 2.0 2.0 2.0 2.0 02/16/19 02/16/19 02/16/19 02/17/19 20:00 21:14 23:48 03:56 Temp 98.1 98.1 98.1 98.1 Pulse 87 98 70 Resp 18 18 B/P (MAP) 170/80 162/70 (100) 106/60 (75) Pulse Ox 94 96 O2 Delivery Nasal Cannula Nasal Cannula Nasal Cannula O2 Flow Rate 2.0 2.0 2.0 02/17/19 02/17/19 07:00 08:09 Temp 97.7 97.7 Pulse 87 Resp 20 B/P (MAP) 157/79 (105) Pulse Ox 94 O2 Delivery Nasal Cannula Nasal Cannula O2 Flow Rate 2.0 2.0 Intake and Output 02/16/19 02/16/19 02/17/19 15:00 23:00 07:00 Intake Total 0 ml 0 ml Output Total 350 ml 300 ml 300 ml Balance -350 ml -300 ml -300 ml RUFINO GRANDE MD Feb 17, 2019 10:42
[2019-02-17] MEDS: ASPIRIN CHEWABLE 81 MG TABLET. PO SCH (12:30)
--- NOTE | 2019-02-17 12:33 | PDOC ---
Renal-Progress Notes Subjective Notes Notes NO COMPLAINTS History of Present Illness Hx of present illness STABLE Vitals Vitals Vital Signs Date Time Temp Pulse Resp B/P (MAP) Pulse Ox O2 Delivery O2 Flow Rate FiO2 02/17/19 08:09 Nasal Cannula 2.0 02/17/19 07:00 97.7 87 20 157/79 (105) 94 97.7 Weight Weight [ ] I.O. Intake and Output Intake and Output 02/17/19 07:00 Intake Total 0 ml Output Total 950 ml Balance -950 ml Intake Oral 0 ml Output Urine Total 950 ml Labs Labs Laboratory Tests Test 02/16/19 18:20 02/17/19 00:24 02/17/19 05:58 02/17/19 06:00 Glucose (Fingerstick) 227 mg/dL (70-99) 219 mg/dL (70-99) 247 mg/dL (70-99) White Blood Count 10.2 x10^3/uL (4.0-11.0) Red Blood Count 2.71 x10^6/uL (4.30-5.70) Hemoglobin 8.9 g/dL (13.0-17.5) Hematocrit 26.1 % (39.0-53.0) Mean Corpuscular Volume 96 fL (79-100) Mean Corpuscular Hemoglobin 33 pg (25-35) Mean Corpuscular Hemoglobin Concent 34 g/dL (31-37) Red Cell Distribution Width 12.9 % (11.5-14.5) Platelet Count 125 x10^3/uL (140-400) Neutrophils (%) (Auto) 83 % (31-73) Lymphocytes (%) (Auto) 4 % (24-48) Monocytes (%) (Auto) 9 % (0-9) Eosinophils (%) (Auto) 3 % (0-3) Basophils (%) (Auto) 0 % (0-3) Neutrophils # (Auto) 8.5 x10^3/uL (1.8-7.7) Lymphocytes # (Auto) 0.4 x10^3/uL (1.0-4.8) Monocytes # (Auto) 1.0 x10^3/uL (0.0-1.1) Eosinophils # (Auto) 0.3 x10^3/uL (0.0-0.7) Basophils # (Auto) 0.0 x10^3/uL (0.0-0.2) Sodium Level 144 mmol/L (136-145) Potassium Level 4.2 mmol/L (3.5-5.1) Chloride Level 105 mmol/L (98-107) Carbon Dioxide Level 25 mmol/L (21-32) Anion Gap 14 (6-14) Blood Urea Nitrogen 49 mg/dL (8-26) Creatinine 6.5 mg/dL (0.7-1.3) Estimated GFR (Cockcroft-Gault) 9.1 Glucose Level 254 mg/dL (70-99) Calcium Level 8.3 mg/dL (8.5-10.1) Test 02/17/19 12:14 Glucose (Fingerstick) 133 mg/dL (70-99) Micro Micro Microbiology 02/12/19 Throat Culture - Final, Complete 02/12/19 - Final, Complete 02/12/19 Blood Culture - Final, Complete NO GROWTH AFTER 5 DAYS 02/11/19 Urine Culture - Final, Complete 02/11/19 Urine Culture Result 1 (SABINE) - Final, Complete Review of Systems Constitutional: yes: alert, oriented Ears/Nose/Throat: Yes: no symptom reported Eyes: Yes: no symptom reported Pulmonary: Yes no symptom reported Cardiovascular: Yes no symptom reported Gastrointestional: Yes: no symptom reported Genitourinary: Yes: no symptom reported Musculoskeletal: Yes: no symptom reported Skin: Yes no symptom reported Psychiatric/Neurological: Yes: no symptom reported Endocrine: Yes: no symptom reported Physical Exam General Appearance: no apparent distress Skin: warm Respiratory: bilateral CTA Heart: S1S2, RRR Abdomen: soft, bowel sounds present Genitourinary: bladder flat Extremities: pulses present Neurology: alert, oriented Assessment Assessment IMP ASRAH-NOT ENOUGH CLEARANCE-POSSIBLE ESRD SINCE WE HAVE NO BASELINE ANEMIA HTN DM II DKA-RESOLED PLAN HD TODAY UF TO DW START BRAD SW WILL NEED TO SET UP OP HD WILL HAVE IR CONVERT TEMP TO TUNNELED HD CATHETER JONI COX MD Feb 17, 2019 12:33
--- NOTE | 2019-02-17 13:25 | PDOC ---
Infectious Disease Note Subjective Subjective Participating in physical therapy Unsteady gait Matt pain/SOA/N/V/D/F/C Vital Sign Vital Signs Vital Signs Date Time Temp Pulse Resp B/P (MAP) Pulse Ox O2 Delivery O2 Flow Rate FiO2 02/17/19 08:09 Nasal Cannula 2.0 02/17/19 07:00 97.7 87 20 157/79 (105) 94 97.7 Physical Exam PHYSICAL EXAM GENERAL: Up in the chair, HEENT: Pupils equally round. Oral cavity dry, black tongue NECK: Supple. LUNGS: Improved aeration, nonlabored. HEART: S1 and S2. ABDOMEN: Nondistended, soft, no guarding. Bowel sounds present. GENITOURINARY: Indwelling [place] in place. EXTREMITIES: No gross edema or cyanosis. SKIN: Warm to touch without signs of rash. NEUROLOGIC: Alert and oriented x 3 RIJ/HDC (8-6) without signs of any complications. Labs Lab Laboratory Tests Test 02/16/19 18:20 02/17/19 00:24 02/17/19 05:58 02/17/19 06:00 Glucose (Fingerstick) 227 mg/dL (70-99) 219 mg/dL (70-99) 247 mg/dL (70-99) White Blood Count 10.2 x10^3/uL (4.0-11.0) Red Blood Count 2.71 x10^6/uL (4.30-5.70) Hemoglobin 8.9 g/dL (13.0-17.5) Hematocrit 26.1 % (39.0-53.0) Mean Corpuscular Volume 96 fL (79-100) Mean Corpuscular Hemoglobin 33 pg (25-35) Mean Corpuscular Hemoglobin Concent 34 g/dL (31-37) Red Cell Distribution Width 12.9 % (11.5-14.5) Platelet Count 125 x10^3/uL (140-400) Neutrophils (%) (Auto) 83 % (31-73) Lymphocytes (%) (Auto) 4 % (24-48) Monocytes (%) (Auto) 9 % (0-9) Eosinophils (%) (Auto) 3 % (0-3) Basophils (%) (Auto) 0 % (0-3) Neutrophils # (Auto) 8.5 x10^3/uL (1.8-7.7) Lymphocytes # (Auto) 0.4 x10^3/uL (1.0-4.8) Monocytes # (Auto) 1.0 x10^3/uL (0.0-1.1) Eosinophils # (Auto) 0.3 x10^3/uL (0.0-0.7) Basophils # (Auto) 0.0 x10^3/uL (0.0-0.2) Sodium Level 144 mmol/L (136-145) Potassium Level 4.2 mmol/L (3.5-5.1) Chloride Level 105 mmol/L (98-107) Carbon Dioxide Level 25 mmol/L (21-32) Anion Gap 14 (6-14) Blood Urea Nitrogen 49 mg/dL (8-26) Creatinine 6.5 mg/dL (0.7-1.3) Estimated GFR (Cockcroft-Gault) 9.1 Glucose Level 254 mg/dL (70-99) Calcium Level 8.3 mg/dL (8.5-10.1) Test 02/17/19 12:14 Glucose (Fingerstick) 133 mg/dL (70-99) Micro Microbiology 02/12/19 Throat Culture - Final, Complete 02/12/19 - Final, Complete 02/12/19 Blood Culture - Final, Complete NO GROWTH AFTER 5 DAYS 02/11/19 Urine Culture - Final, Complete 02/11/19 Urine Culture Result 1 (SABINE) - Final, Complete Objective Assessment Aspiration - pharyngitis is better - cults neg Dysphagia, failed swallow study - NPO Fever - Group A rapid neg. Leukocytosis - better Acute encephalopathy - improved SARAH requiring HD DKA Seizure Plan Plan of Care change Zosyn, renal dose to po augmentin Off azithromycin, Cultures neg Monitor labs PT/OT Clinically improving - looks well D/w family LUCRETIA XIONG MD Feb 17, 2019 13:25
[2019-02-17 15:00] VITALS: BP 175/76
[2019-02-17] MEDS: AMINO AC 3%/ELECTROLYTE/GLYCER 1,000 ML IV SCH (17:02)
[2019-02-17] MEDS: MORPHINE SULFATE 2 MG/ML VIAL. IV PRN (18:07)
[2019-02-17 19:04] VITALS: BP 112/82
[2019-02-17] MEDS: ATORVASTATIN CALCIUM 20 MG TABLET PO SCH (19:14)
[2019-02-17] MEDS: AMOXICILLIN/K CLAV 500/125MG TABLET. PO SCH (19:14)
[2019-02-17] MEDS: LACTOBACILLUS RHAMNOSUS GG 1 CAPSULE. PO SCH (19:14)
[2019-02-17] MEDS: DARBEPOETIN ALFA 60 MCG/0.3 ML DISP.SYRIN. SQ SCH (19:41)
--- NOTE | 2019-02-17 19:47 | PDOC ---
PROGRESS NOTES Assessment Assessment IMPRESSION: Metabolic encephalopathy. Seizure, provoked. Hyperglycemia, glucose level 737 on 02/11/19. Diabetic ketoacidosis. DM, poorly controlled. Leukocytosis. Hyperkalemia. Hypocalcemia. Rhabdomyolysis. Acute renal failure. HTN. HLD. RECOMMENDATIONS/PLAN: Treat medical diseases. Continue ASA daily. Continue Lipitor HS. Control hyperglycemia. 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 Full 14-point review of systems is negative. MEDICATIONS: Refer to MAR PHYSICAL EXAMINATION: General appearance in no acute distress. HEENT: Normocephalic and nontraumatic. Eyes, nose, ears, and throat are unremarkable. Hearing decrease. Neck is supple. No lymphadenopathy. No bruits are heard over the carotid artery. No Crepitus. Cardiovascular: S1, S2, regular rate and rhythm. Pulmonary: Clear to auscultation bilaterally. Abdomen: Bowel sounds are positive. Abdomen is soft, nontender, and nondistended. Extremities: No rash, lesions, or edema. No restriction of range of motion NEUROLOGICAL EXAMINATION: Alert. Oriented to time, place and person. PERRL. EOMI. CN: no focal findings. Muscle tone: within normal. Muscle strength: 5- DTR: 2 Plantar reflex: Flexor response bilaterally Gait: not examined in bed. Sensory exam: no abnormal findings. No cerebellar signs elicited. F-T-N test fine. Objective Objective Vital Signs Date Time Temp Pulse Resp B/P (MAP) Pulse Ox O2 Delivery O2 Flow Rate FiO2 02/17/19 18:44 96 Nasal Cannula 2.0 02/17/19 15:00 97.3 99 18 175/76 (109) 97.3 Intake and Output 02/17/19 07:00 Intake Total 0 ml Output Total 950 ml Balance -950 ml Intake Oral 0 ml Output Urine Total 950 ml Vitals Signs Vitals VS - Last 72 Hours, by Label Date Time Temp Pulse Resp B/P (MAP) Pulse Ox O2 Delivery O2 Flow Rate FiO2 02/17/19 18:44 96 Nasal Cannula 2.0 02/17/19 18:07 96 Nasal Cannula 2.0 02/17/19 15:00 97.3 99 18 175/76 (109) 96 Nasal Cannula 2.0 97.3 02/17/19 08:09 Nasal Cannula 2.0 02/17/19 07:00 97.7 87 20 157/79 (105) 94 Nasal Cannula 2.0 97.7 02/17/19 03:56 98.1 70 18 106/60 (75) 96 Nasal Cannula 2.0 98.1 02/16/19 23:48 98.1 98 18 162/70 (100) 94 Nasal Cannula 2.0 98.1 02/16/19 21:14 87 170/80 02/16/19 20:00 Nasal Cannula 2.0 02/16/19 19:24 97.7 87 18 170/80 (110) 96 Nasal Cannula 2.0 97.7 02/16/19 15:21 98.0 88 18 152/79 (103) 97 Nasal Cannula 2.0 98.0 02/16/19 12:37 Nasal Cannula 2.0 02/16/19 11:13 97.7 88 18 111/62 (78) 98 Nasal Cannula 2.0 97.7 02/16/19 10:39 Nasal Cannula 2.0 02/16/19 07:52 97.9 92 18 155/80 (105) 95 Nasal Cannula 2.0 97.9 02/16/19 07:35 Nasal Cannula 2.0 Laboratory Laboratory Laboratory Tests Test 02/17/19 00:24 02/17/19 05:58 02/17/19 06:00 02/17/19 12:14 Glucose (Fingerstick) 219 mg/dL (70-99) 247 mg/dL (70-99) 133 mg/dL (70-99) White Blood Count 10.2 x10^3/uL (4.0-11.0) Red Blood Count 2.71 x10^6/uL (4.30-5.70) Hemoglobin 8.9 g/dL (13.0-17.5) Hematocrit 26.1 % (39.0-53.0) Mean Corpuscular Volume 96 fL (79-100) Mean Corpuscular Hemoglobin 33 pg (25-35) Mean Corpuscular Hemoglobin Concent 34 g/dL (31-37) Red Cell Distribution Width 12.9 % (11.5-14.5) Platelet Count 125 x10^3/uL (140-400) Neutrophils (%) (Auto) 83 % (31-73) Lymphocytes (%) (Auto) 4 % (24-48) Monocytes (%) (Auto) 9 % (0-9) Eosinophils (%) (Auto) 3 % (0-3) Basophils (%) (Auto) 0 % (0-3) Neutrophils # (Auto) 8.5 x10^3/uL (1.8-7.7) Lymphocytes # (Auto) 0.4 x10^3/uL (1.0-4.8) Monocytes # (Auto) 1.0 x10^3/uL (0.0-1.1) Eosinophils # (Auto) 0.3 x10^3/uL (0.0-0.7) Basophils # (Auto) 0.0 x10^3/uL (0.0-0.2) Sodium Level 144 mmol/L (136-145) Potassium Level 4.2 mmol/L (3.5-5.1) Chloride Level 105 mmol/L (98-107) Carbon Dioxide Level 25 mmol/L (21-32) Anion Gap 14 (6-14) Blood Urea Nitrogen 49 mg/dL (8-26) Creatinine 6.5 mg/dL (0.7-1.3) Estimated GFR (Cockcroft-Gault) 9.1 Glucose Level 254 mg/dL (70-99) Calcium Level 8.3 mg/dL (8.5-10.1) Hepatitis B Core Total Antibody Nonreactive (Nonreactive) Test 02/17/19 18:11 Glucose (Fingerstick) 214 mg/dL (70-99) Microbiology 02/12/19 Throat Culture - Final, Complete 02/12/19 - Final, Complete 02/12/19 Blood Culture - Final, Complete NO GROWTH AFTER 5 DAYS 02/11/19 Urine Culture - Final, Complete 02/11/19 Urine Culture Result 1 (SABINE) - Final, Complete Medication Medications Current Medications Amino Acids/ Glycerin/ Electrolytes 1,000 ml @ 80 mls/hr [id number] IV Last administered on 02/17/19at 17:02; Start 02/17/19 at 15:15 Amoxicillin/ Clavulanate Potassium (Augmentin 500/ 125mg) 1 tab BID PO ; Start 02/17/19 at 21:00 Aspirin (Children'S Aspirin) 81 mg [id number] PO ; Start 02/17/19 at 12:30 Atorvastatin Calcium (Lipitor) 20 mg QHS PO ; Start 02/17/19 at 21:00 Darbepoetin Michael (ARANESP for DIALYSIS PTS) 60 mcg [id number] SQ ; Start 02/17/19 at 21:00 Diphenhydramine HCl (Benadryl) 25 mg 1X PRN PRN IV ITCHING; Start 02/17/19 at 07:45; Stop 02/18/19 at 07:44 Diphenhydramine HCl (Benadryl) 25 mg 1X PRN PRN IV ITCHING; Start 02/17/19 at 07:45; Stop 02/18/19 at 07:44 Info (PHARMACY MONITORING -- do not chart) 1 each PRN DAILY PRN MC SEE COMMENTS; Start 02/17/19 at 07:45 Lactobacillus Rhamnosus (Culturelle) 1 cap BID PO ; Start 02/17/19 at 21:00 Sodium Chloride 1,000 ml @ 400 mls/hr Q2H30M PRN IV PATENCY; Start 02/17/19 at 07:39; Stop 02/17/19 at 19:38; Status DC Sodium Chloride 1,000 ml @ 1,000 mls/hr Q1H PRN IV hypotension; Start 02/17/19 at 07:39; Stop 02/17/19 at 13:38; Status DC Comment Review of Relevant I have reviewed the following items mindy (where applicable) has been applied. VINCENT CALIXTO MD Feb 17, 2019 19:47
[2019-02-17 23:45] VITALS: BP 146/81
[2019-02-18] VITALS (7 sets, daily range): BP systolic 141–166; BP diastolic 71–85
[2019-02-18] MEDS: AMINO AC 3%/ELECTROLYTE/GLYCER 1,000 ML IV SCH ×2 (05:42→20:03)
[2019-02-18] MEDS: INSULIN LISPRO 300 UNITS/3 ML INSULN.PEN. SQ SCH ×4 (05:54→17:25)
[2019-02-18 06:11] LABS: BASO % 0 % (0-3); EOS # 0.2 x10^3/uL (0.0-0.7); EOS % 2 % (0-3); HEMOGLOBIN 8.9 g/dL (13.0-17.5); LYMPH # 0.5 x10^3/uL (1.0-4.8); LYMPH % 4 % (24-48); MEAN CORPUSCULAR HEMOGLOBIN 33 pg (25-35); MEAN CORPUSCULAR HGB CONC 34 g/dL (31-37); MEAN CORPUSCULAR VOLUME 96 fL (79-100); MONO % 9 % (0-9); NEUT # 9.5 x10^3/uL (1.8-7.7); NEUT % 85 % (31-73); PLATELET COUNT 157 x10^3/uL (140-400); RED BLOOD COUNT 2.72 x10^6/uL (4.30-5.70); RED CELL DISTRIBUTION WIDTH 12.7 % (11.5-14.5); WHITE BLOOD COUNT 11.2 x10^3/uL (4.0-11.0)
[2019-02-18 06:25] LABS: CALCIUM 8.6 mg/dL (8.5-10.1); CREATININE 4.6 mg/dL (0.7-1.3); GFR 13.5; POTASSIUM 4.2 mmol/L (3.5-5.1)
[2019-02-18] MEDS: ASPIRIN CHEWABLE 81 MG TABLET. PO SCH (08:00)
[2019-02-18] MEDS: AMOXICILLIN/K CLAV 500/125MG TABLET. PO SCH (09:00)
[2019-02-18] MEDS: LACTOBACILLUS RHAMNOSUS GG 1 CAPSULE. PO SCH ×2 (09:00→19:52)
--- NOTE | 2019-02-18 09:33 | PDOC ---
PROGRESS NOTES Chief Complaint Chief Complaint impression Acute DKA, resolved Altered mental status, resolved Seizure, resolved SARAH now on HD per nephro Sonographically unremarkable kidneys, with slightly limited evaluation of the left kidney due to respiratory motion. Hyperkalemia, resolved T2DM Leukocytosis Lactic acidosis Dysphagia /// Moderate to moderate-severe oropharyngeal dysphagia w/ pt demonstrating s/s aspiration on own secretions, Unsteady gait 26 min pt exam, chart review, > 50% of time spent with exam, chart review, pt care coordination History of Present Illness History of Present Illness 02/18/19: renal dose to po augmentin Off azithromycin, cultures negative, including group A strep continue to adjust insulin as needed 02/14/19 Pt seen and examined in ICU [place] to BSD Pt sitting up in chair and communicative Anion gap 17 (14, 17 today) DW RN DW family 02/13/19 Pt seen and examined in ICU Venti mask at 50% O2 Pt sitting up in bed marked improvement Anion gap trending down ( 02/17 OP HD WILL HAVE IR CONVERT TEMP TO TUNNELED HD CATHETER Vitals Vitals Vital Signs Date Time Temp Pulse Resp B/P (MAP) Pulse Ox O2 Delivery O2 Flow Rate FiO2 02/18/19 07:00 97.8 94 18 166/83 (110) 93 Nasal Cannula 2.0 97.8 Physical Exam Physical Exam GENERAL: Up in the chair, HEENT: Pupils equally round. Oral cavity dry, black tongue NECK: Supple. LUNGS: Improved aeration, nonlabored. HEART: S1 and S2. ABDOMEN: Nondistended, soft, no guarding. Bowel sounds present. GENITOURINARY: Indwelling [place] in place. EXTREMITIES: No gross edema or cyanosis. SKIN: Warm to touch without signs of rash. NEUROLOGIC: Alert and oriented x 3 RIJ/HDC (8-6) without signs of any complications. General: Alert, Oriented X3, Cooperative, No acute distress, Other (non-verbal ) Heart: Regular rate, Normal S1, Other (distant heart tones) Lungs: Crackles Abdomen: Soft, No tenderness Extremities: No clubbing, No edema, Normal pulses Skin: No breakdown, No significant lesion Labs LABS Laboratory Tests Test 02/17/19 12:14 02/17/19 18:11 02/18/19 01:11 02/18/19 05:49 Glucose (Fingerstick) 133 mg/dL (70-99) 214 mg/dL (70-99) 266 mg/dL (70-99) 278 mg/dL (70-99) Test 02/18/19 06:00 02/18/19 08:05 White Blood Count 11.2 x10^3/uL (4.0-11.0) Red Blood Count 2.72 x10^6/uL (4.30-5.70) Hemoglobin 8.9 g/dL (13.0-17.5) Hematocrit 26.0 % (39.0-53.0) Mean Corpuscular Volume 96 fL (79-100) Mean Corpuscular Hemoglobin 33 pg (25-35) Mean Corpuscular Hemoglobin Concent 34 g/dL (31-37) Red Cell Distribution Width 12.7 % (11.5-14.5) Platelet Count 157 x10^3/uL (140-400) Neutrophils (%) (Auto) 85 % (31-73) Lymphocytes (%) (Auto) 4 % (24-48) Monocytes (%) (Auto) 9 % (0-9) Eosinophils (%) (Auto) 2 % (0-3) Basophils (%) (Auto) 0 % (0-3) Neutrophils # (Auto) 9.5 x10^3/uL (1.8-7.7) Lymphocytes # (Auto) 0.5 x10^3/uL (1.0-4.8) Monocytes # (Auto) 1.0 x10^3/uL (0.0-1.1) Eosinophils # (Auto) 0.2 x10^3/uL (0.0-0.7) Basophils # (Auto) 0.0 x10^3/uL (0.0-0.2) Sodium Level 138 mmol/L (136-145) Potassium Level 4.2 mmol/L (3.5-5.1) Chloride Level 99 mmol/L (98-107) Carbon Dioxide Level 25 mmol/L (21-32) Anion Gap 14 (6-14) Blood Urea Nitrogen 35 mg/dL (8-26) Creatinine 4.6 mg/dL (0.7-1.3) Estimated GFR (Cockcroft-Gault) 13.5 Glucose Level 306 mg/dL (70-99) Calcium Level 8.6 mg/dL (8.5-10.1) Glucose (Fingerstick) 299 mg/dL (70-99) Assessment and Plan Assessmemt and Plan Problems Medical Problems: (1) DKA (diabetic ketoacidoses) Status: Acute (2) Elevated troponin Status: Acute (3) Renal failure Status: Acute Comment Review of Relevant I have reviewed the following items mindy (where applicable) has been applied. Labs Laboratory Tests Test 02/16/19 11:52 02/16/19 18:20 02/17/19 00:24 02/17/19 05:58 Glucose (Fingerstick) 236 mg/dL (70-99) 227 mg/dL (70-99) 219 mg/dL (70-99) 247 mg/dL (70-99) Test 02/17/19 06:00 02/17/19 12:14 02/17/19 18:11 02/18/19 01:11 White Blood Count 10.2 x10^3/uL (4.0-11.0) Red Blood Count 2.71 x10^6/uL (4.30-5.70) Hemoglobin 8.9 g/dL (13.0-17.5) Hematocrit 26.1 % (39.0-53.0) Mean Corpuscular Volume 96 fL (79-100) Mean Corpuscular Hemoglobin 33 pg (25-35) Mean Corpuscular Hemoglobin Concent 34 g/dL (31-37) Red Cell Distribution Width 12.9 % (11.5-14.5) Platelet Count 125 x10^3/uL (140-400) Neutrophils (%) (Auto) 83 % (31-73) Lymphocytes (%) (Auto) 4 % (24-48) Monocytes (%) (Auto) 9 % (0-9) Eosinophils (%) (Auto) 3 % (0-3) Basophils (%) (Auto) 0 % (0-3) Neutrophils # (Auto) 8.5 x10^3/uL (1.8-7.7) Lymphocytes # (Auto) 0.4 x10^3/uL (1.0-4.8) Monocytes # (Auto) 1.0 x10^3/uL (0.0-1.1) Eosinophils # (Auto) 0.3 x10^3/uL (0.0-0.7) Basophils # (Auto) 0.0 x10^3/uL (0.0-0.2) Sodium Level 144 mmol/L (136-145) Potassium Level 4.2 mmol/L (3.5-5.1) Chloride Level 105 mmol/L (98-107) Carbon Dioxide Level 25 mmol/L (21-32) Anion Gap 14 (6-14) Blood Urea Nitrogen 49 mg/dL (8-26) Creatinine 6.5 mg/dL (0.7-1.3) Estimated GFR (Cockcroft-Gault) 9.1 Glucose Level 254 mg/dL (70-99) Calcium Level 8.3 mg/dL (8.5-10.1) Hepatitis B Core Total Antibody Nonreactive (Nonreactive) Glucose (Fingerstick) 133 mg/dL (70-99) 214 mg/dL (70-99) 266 mg/dL (70-99) Test 02/18/19 05:49 02/18/19 06:00 02/18/19 08:05 Glucose (Fingerstick) 278 mg/dL (70-99) 299 mg/dL (70-99) White Blood Count 11.2 x10^3/uL (4.0-11.0) Red Blood Count 2.72 x10^6/uL (4.30-5.70) Hemoglobin 8.9 g/dL (13.0-17.5) Hematocrit 26.0 % (39.0-53.0) Mean Corpuscular Volume 96 fL (79-100) Mean Corpuscular Hemoglobin 33 pg (25-35) Mean Corpuscular Hemoglobin Concent 34 g/dL (31-37) Red Cell Distribution Width 12.7 % (11.5-14.5) Platelet Count 157 x10^3/uL (140-400) Neutrophils (%) (Auto) 85 % (31-73) Lymphocytes (%) (Auto) 4 % (24-48) Monocytes (%) (Auto) 9 % (0-9) Eosinophils (%) (Auto) 2 % (0-3) Basophils (%) (Auto) 0 % (0-3) Neutrophils # (Auto) 9.5 x10^3/uL (1.8-7.7) Lymphocytes # (Auto) 0.5 x10^3/uL (1.0-4.8) Monocytes # (Auto) 1.0 x10^3/uL (0.0-1.1) Eosinophils # (Auto) 0.2 x10^3/uL (0.0-0.7) Basophils # (Auto) 0.0 x10^3/uL (0.0-0.2) Sodium Level 138 mmol/L (136-145) Potassium Level 4.2 mmol/L (3.5-5.1) Chloride Level 99 mmol/L (98-107) Carbon Dioxide Level 25 mmol/L (21-32) Anion Gap 14 (6-14) Blood Urea Nitrogen 35 mg/dL (8-26) Creatinine 4.6 mg/dL (0.7-1.3) Estimated GFR (Cockcroft-Gault) 13.5 Glucose Level 306 mg/dL (70-99) Calcium Level 8.6 mg/dL (8.5-10.1) Laboratory Tests Test 02/17/19 12:14 02/17/19 18:11 02/18/19 01:11 02/18/19 05:49 Glucose (Fingerstick) 133 mg/dL (70-99) 214 mg/dL (70-99) 266 mg/dL (70-99) 278 mg/dL (70-99) Test 02/18/19 06:00 02/18/19 08:05 White Blood Count 11.2 x10^3/uL (4.0-11.0) Red Blood Count 2.72 x10^6/uL (4.30-5.70) Hemoglobin 8.9 g/dL (13.0-17.5) Hematocrit 26.0 % (39.0-53.0) Mean Corpuscular Volume 96 fL (79-100) Mean Corpuscular Hemoglobin 33 pg (25-35) Mean Corpuscular Hemoglobin Concent 34 g/dL (31-37) Red Cell Distribution Width 12.7 % (11.5-14.5) Platelet Count 157 x10^3/uL (140-400) Neutrophils (%) (Auto) 85 % (31-73) Lymphocytes (%) (Auto) 4 % (24-48) Monocytes (%) (Auto) 9 % (0-9) Eosinophils (%) (Auto) 2 % (0-3) Basophils (%) (Auto) 0 % (0-3) Neutrophils # (Auto) 9.5 x10^3/uL (1.8-7.7) Lymphocytes # (Auto) 0.5 x10^3/uL (1.0-4.8) Monocytes # (Auto) 1.0 x10^3/uL (0.0-1.1) Eosinophils # (Auto) 0.2 x10^3/uL (0.0-0.7) Basophils # (Auto) 0.0 x10^3/uL (0.0-0.2) Sodium Level 138 mmol/L (136-145) Potassium Level 4.2 mmol/L (3.5-5.1) Chloride Level 99 mmol/L (98-107) Carbon Dioxide Level 25 mmol/L (21-32) Anion Gap 14 (6-14) Blood Urea Nitrogen 35 mg/dL (8-26) Creatinine 4.6 mg/dL (0.7-1.3) Estimated GFR (Cockcroft-Gault) 13.5 Glucose Level 306 mg/dL (70-99) Calcium Level 8.6 mg/dL (8.5-10.1) Glucose (Fingerstick) 299 mg/dL (70-99) Microbiology 02/12/19 Throat Culture - Final, Complete 02/12/19 - Final, Complete 02/12/19 Blood Culture - Final, Complete NO GROWTH AFTER 5 DAYS 02/11/19 Urine Culture - Final, Complete 02/11/19 Urine Culture Result 1 (SABINE) - Final, Complete Medications Current Medications Sodium Chloride 1,000 ml @ 1,000 mls/hr 1X ONCE IV Last administered on 02/11/19at 19:19; Start 02/11/19 at 19:15; Stop 02/11/19 at 20:14; Status DC Sodium Chloride 1,000 ml @ 1,000 mls/hr 1X ONCE IV Last administered on 02/11/19at 20:21; Start 02/11/19 at 20:00; Stop 02/11/19 at 20:59; Status DC Insulin Human Regular (HumuLIN R VIAL) 9 unit 1X ONCE SQ Last administered on 02/11/19at 20:21; Start 02/11/19 at 20:00; Stop 02/11/19 at 20:01; Status DC Insulin Human Regular 150 unit/ Sodium Chloride 151.5 ml @ 0 mls/hr CONT PRN PRN IV PER PROTOCOL Last administered on 02/13/19at 06:10; Start 02/11/19 at 20:00 Potassium Chloride/Water 100 ml @ 100 mls/hr PRN Q1HR PRN IV SEE COMMENTS; Start 02/11/19 at 20:00 Potassium Chloride/Water 100 ml @ 100 mls/hr PRN Q1HR PRN IV SEE COMMENTS; Start 02/11/19 at 20:00 Potassium Chloride/Water 100 ml @ 100 mls/hr PRN Q1HR PRN IV SEE COMMENTS; Start 02/11/19 at 20:00 Magnesium Sulfate/ Dextrose 100 ml @ 25 mls/hr PRN DAILY PRN IV SEE COMMENTS; Start 02/12/19 at 09:00 Aspirin (Aspirin Rectal Supp) 300 mg 1X ONCE MT Last administered on 02/11/19at 20:21; Start 02/11/19 at 20:00; Stop 02/11/19 at 20:03; Status DC Insulin Human Regular 150 ml @ 0 mls/hr CONT PRN PRN IV PER PROTOCOL Last administered on 02/11/19at 20:21; Start 02/11/19 at 20:15; Stop 02/11/19 at 23:00; Status DC Ondansetron HCl (Zofran) 4 mg PRN Q8HRS PRN IV NAUSEA/VOMITING; Start 02/11/19 at 20:30; Stop 02/12/19 at 20:29; Status DC Calcium Gluconate (Calcium Gluconate) 1,000 mg 1X ONCE IVP Last administered on 02/11/19at 21:29; Start 02/11/19 at 21:00; Stop 02/11/19 at 21:01; Status DC Sodium Chloride 1,000 ml @ 500 mls/hr 1X ONCE IV Last administered on 02/11/19at 21:29; Start 02/11/19 at 21:30; Stop 02/11/19 at 23:29; Status DC Lidocaine/Sodium Bicarbonate (Buffered Lidocaine 1%) 3 ml STK-MED ONCE .ROUTE ; Start 02/11/19 at 22:37; Stop 02/11/19 at 22:37; Status DC Lidocaine/Sodium Bicarbonate (Buffered Lidocaine 1%) 3 ml 1X ONCE IJ Last administered on 02/11/19at 23:10; Start 02/11/19 at 23:00; Stop 02/11/19 at 23:01; Status DC Sodium Chloride 1,000 ml @ 1,000 mls/hr Q1H PRN IV hypotension; Start 02/11/19 at 23:23; Stop 02/12/19 at 05:22; Status DC Sodium Chloride 1,000 ml @ 400 mls/hr Q2H30M PRN IV PATENCY; Start 02/11/19 at 23:23; Stop 02/12/19 at 11:22; Status DC Info (PHARMACY MONITORING -- do not chart) 1 each PRN DAILY PRN MC SEE COMMENTS; Start 02/11/19 at 23:30; Status UNV Info (PHARMACY MONITORING -- do not chart) 1 each PRN DAILY PRN MC SEE COMMENTS; Start 02/11/19 at 23:30; Stop 02/12/19 at 18:07; Status DC Sodium Chloride 1,000 ml @ 250 mls/hr Q4H IV Last administered on 02/12/19at 00:20; Start 02/12/19 at 00:14; Stop 02/12/19 at 01:32; Status DC Piperacillin Sod/ Tazobactam Sod 3.375 gm/Sodium Chloride 50 ml @ 100 mls/hr Q6HRS IV ; Start 02/12/19 at 01:00; Status UNV Piperacillin Sod/ Tazobactam Sod 2.25 gm/Sodium Chloride 50 ml @ 100 mls/hr Q8HRS IV Last administered on 02/17/19at 05:59; Start 02/12/19 at 01:00; Stop 02/17/19 at 13:26; Status DC Dextrose/Sodium Chloride 1,000 ml @ 250 mls/hr Q4H IV Last administered on 02/12/19at 15:39; Start 02/12/19 at 01:32; Stop 02/12/19 at 21:05; Status DC Lorazepam (Ativan Inj) 1 mg PRN Q10MIN PRN IV SEIZURE; Start 02/12/19 at 03:00 Sodium Chloride 250 ml @ 250 mls/hr 1X ONCE IV Last administered on 02/12/19at 05:25; Start 02/12/19 at 05:00; Stop 02/12/19 at 05:59; Status DC Azithromycin 500 mg/Sodium Chloride 250 ml @ 250 mls/hr 1X ONCE IV Last administered on 02/12/19at 05:25; Start 02/12/19 at 05:00; Stop 02/12/19 at 05:59; Status DC Potassium Chloride/Water 50 ml @ 25 mls/hr Q2H IV Last administered on 02/12/19at 10:06; Start 02/12/19 at 08:00; Stop 02/12/19 at 11:59; Status DC Azithromycin 250 ml @ 250 mls/hr 1X ONCE IV ; Start 02/13/19 at 05:00; Stop 02/12/19 at 11:37; Status DC Azithromycin 500 mg/Sodium Chloride 250 ml @ 250 mls/hr 1X ONCE IV Last administered on 02/13/19at 04:33; Start 02/13/19 at 05:00; Stop 02/13/19 at 05:59; Status DC Potassium Chloride/Water 50 ml @ 25 mls/hr Q2H IV Last administered on 02/12/19at 18:18; Start 02/12/19 at 16:00; Stop 02/12/19 at 19:59; Status DC Sodium Chloride 1,000 ml @ 1,000 mls/hr Q1H PRN IV hypotension; Start 02/12/19 at 15:00; Stop 02/12/19 at 20:59; Status DC Sodium Chloride (Normal Saline Flush) 10 ml 1X PRN PRN IV AP catheter pack; Start 02/12/19 at 15:00; Stop 02/13/19 at 14:17; Status DC Sodium Chloride (Normal Saline Flush) 10 ml 1X PRN PRN IV INSTALLATION & MAINTENANCE EXECUTIVE catheter pack; Start 02/12/19 at 15:00; Stop 02/13/19 at 14:17; Status DC Sodium Chloride 1,000 ml @ 400 mls/hr Q2H30M PRN IV PATENCY; Start 02/12/19 at 15:00; Stop 02/13/19 at 02:59; Status DC Info (PHARMACY MONITORING -- do not chart) 1 each PRN DAILY PRN MC SEE COMMENTS; Start 02/12/19 at 18:00; Stop 02/12/19 at 18:07; Status DC Info (PHARMACY MONITORING -- do not chart) 1 each PRN DAILY PRN MC SEE COMMENTS; Start 02/12/19 at 18:00; Status Cancel Sodium Chloride 1,000 ml @ 75 mls/hr [id number] IV Last administered on 02/15/19at 22:35; Start 02/12/19 at 20:45; Stop 02/16/19 at 13:48; Status DC Dextrose (Dextrose 50%-Water Syringe) 12.5 gm PRN Q15MIN PRN IV SEE COMMENTS Last administered on 02/13/19at 11:44; Start 02/12/19 at 20:45 Hydralazine HCl (Apresoline Inj) 10 mg PRN Q4HRS PRN IVP ELEVATED BP, SEE COMMENTS Last administered on 02/16/19at 21:14; Start 02/12/19 at 20:45 Insulin Human Lispro (HumaLOG) 0-5 UNITS Q6HRS SQ Last administered on 02/18/19at 05:54; Start 02/13/19 at 00:00 Albuterol Sulfate (Ventolin Neb Soln) 2.5 mg 1X ONCE NEB Last administered on 02/13/19at 01:01; Start 02/13/19 at 01:00; Stop 02/13/19 at 01:01; Status DC Ondansetron HCl (Zofran) 4 mg PRN Q6HRS PRN IV NAUSEA/VOMITING Last administered on 02/15/19at 06:08; Start 02/13/19 at 03:30 Scopolamine (Transderm-Scop) 1 patch 1X ONCE TD Last administered on 02/13/19at 13:44; Start 02/13/19 at 11:45; Stop 02/13/19 at 11:46; Status DC Azithromycin 500 mg/Sodium Chloride 250 ml @ 250 mls/hr 1X ONCE IV Last administered on 02/14/19at 04:32; Start 02/14/19 at 05:00; Stop 02/14/19 at 05:59; Status DC Sodium Chloride 1,000 ml @ 1,000 mls/hr Q1H PRN IV hypotension; Start 02/14/19 at 11:09; Stop 02/14/19 at 17:08; Status DC Albumin Human 200 ml @ 200 mls/hr 1X PRN PRN IV Hypotension; Start 02/14/19 at 11:15; Stop 02/14/19 at 17:14; Status DC Sodium Chloride (Normal Saline Flush) 10 ml 1X PRN PRN IV AP catheter pack; Start 02/14/19 at 11:15; Stop 02/15/19 at 11:14; Status DC Sodium Chloride (Normal Saline Flush) 10 ml 1X PRN PRN IV INSTALLATION & MAINTENANCE EXECUTIVE catheter pack; Start 02/14/19 at 11:15; Stop 02/15/19 at 11:14; Status DC Sodium Chloride 1,000 ml @ 400 mls/hr Q2H30M PRN IV PATENCY; Start 02/14/19 at 11:09; Stop 02/14/19 at 23:08; Status DC Info (PHARMACY MONITORING -- do not chart) 1 each PRN DAILY PRN MC SEE COMMENTS; Start 02/14/19 at 11:15; Status UNV Info (PHARMACY MONITORING -- do not chart) 1 each PRN DAILY PRN MC SEE COMMENTS; Start 02/14/19 at 11:15; Status UNV Morphine Sulfate (Morphine Sulfate) 2 mg PRN Q4HRS PRN IV PAIN Last administered on 02/17/19at 18:07; Start 02/15/19 at 21:30 Sodium Chloride 1,000 ml @ 50 mls/hr Q20H IV Last administered on 02/16/19at 18:29; Start 02/16/19 at 18:00; Stop 02/17/19 at 15:12; Status DC Sodium Chloride 1,000 ml @ 1,000 mls/hr Q1H PRN IV hypotension; Start 02/17/19 at 07:39; Stop 02/17/19 at 13:38; Status DC Diphenhydramine HCl (Benadryl) 25 mg 1X PRN PRN IV ITCHING; Start 02/17/19 at 07:45; Stop 02/18/19 at 07:44; Status DC Diphenhydramine HCl (Benadryl) 25 mg 1X PRN PRN IV ITCHING; Start 02/17/19 at 07:45; Stop 02/18/19 at 07:44; Status DC Sodium Chloride 1,000 ml @ 400 mls/hr Q2H30M PRN IV PATENCY; Start 02/17/19 at 07:39; Stop 02/17/19 at 19:38; Status DC Info (PHARMACY MONITORING -- do not chart) 1 each PRN DAILY PRN MC SEE COMMENTS; Start 02/17/19 at 07:45 Aspirin (Children'S Aspirin) 81 mg [id number] PO ; Start 02/17/19 at 12:30 Atorvastatin Calcium (Lipitor) 20 mg QHS PO ; Start 02/17/19 at 21:00 Darbepoetin Michael (ARANESP for DIALYSIS PTS) 60 mcg WEEKLYHS SQ Last administered on 02/17/19at 19:41; Start 02/17/19 at 21:00 Amoxicillin/ Clavulanate Potassium (Augmentin 500/ 125mg) 1 tab BID PO ; Start 02/17/19 at 21:00 Amino Acids/ Glycerin/ Electrolytes 1,000 ml @ 80 mls/hr [id number] IV Last administered on 02/18/19at 05:42; Start 02/17/19 at 15:15 Lactobacillus Rhamnosus (Culturelle) 1 cap BID PO ; Start 02/17/19 at 21:00 Active Scripts Active Reported Metformin Hcl 500 Mg Tablet 500 Mg PO BIDWMEALS Vitals/I & O Vital Sign - Last 24 Hours 02/17/19 02/17/19 02/17/19 02/17/19 15:00 18:07 18:44 19:04 Temp 97.3 98.2 97.3 98.2 Pulse 99 95 Resp 18 18 B/P (MAP) 175/76 (109) 112/82 (92) Pulse Ox 96 96 96 94 O2 Delivery Nasal Cannula Nasal Cannula Nasal Cannula Nasal Cannula O2 Flow Rate 2.0 2.0 2.0 2.0 02/17/19 02/17/19 02/18/19 02/18/19 20:00 23:45 03:55 07:00 Temp 98.7 98.8 97.8 98.7 98.8 97.8 Pulse 93 93 94 Resp 18 18 18 B/P (MAP) 146/81 (102) 163/85 (111) 166/83 (110) Pulse Ox 94 95 93 O2 Delivery Nasal Cannula Nasal Cannula Nasal Cannula Nasal Cannula O2 Flow Rate 2.0 2.0 2.0 2.0 Intake and Output 02/17/19 02/17/19 02/18/19 15:00 23:00 07:00 Output Total 450 ml 350 ml Balance -450 ml -350 ml RUFINO GRANDE MD Feb 18, 2019 09:33
--- NOTE | 2019-02-18 11:20 | PDOC ---
Infectious Disease Note Subjective Subjective pt is feeling ok, throat is feeling better ROS ROS no n/v/d/sob Vital Sign Vital Signs Vital Signs Date Time Temp Pulse Resp B/P (MAP) Pulse Ox O2 Delivery O2 Flow Rate FiO2 02/18/19 08:00 Nasal Cannula 2.0 02/18/19 07:00 97.8 94 18 166/83 (110) 93 97.8 Physical Exam PHYSICAL EXAM GENERAL: Up in the chair, HEENT: Pupils equally round. Oral cavity dry, black tongue NECK: Supple. LUNGS: Improved aeration, nonlabored. HEART: S1 and S2. ABDOMEN: Nondistended, soft, no guarding. Bowel sounds present. GENITOURINARY: Indwelling [place] in place. EXTREMITIES: No gross edema or cyanosis. SKIN: Warm to touch without signs of rash. NEUROLOGIC: Alert and oriented x 3 RIJ/HDC (8-6) without signs of any complications. Labs Lab Laboratory Tests Test 02/17/19 12:14 02/17/19 18:11 02/18/19 01:11 02/18/19 05:49 Glucose (Fingerstick) 133 mg/dL (70-99) 214 mg/dL (70-99) 266 mg/dL (70-99) 278 mg/dL (70-99) Test 02/18/19 06:00 02/18/19 08:05 White Blood Count 11.2 x10^3/uL (4.0-11.0) Red Blood Count 2.72 x10^6/uL (4.30-5.70) Hemoglobin 8.9 g/dL (13.0-17.5) Hematocrit 26.0 % (39.0-53.0) Mean Corpuscular Volume 96 fL (79-100) Mean Corpuscular Hemoglobin 33 pg (25-35) Mean Corpuscular Hemoglobin Concent 34 g/dL (31-37) Red Cell Distribution Width 12.7 % (11.5-14.5) Platelet Count 157 x10^3/uL (140-400) Neutrophils (%) (Auto) 85 % (31-73) Lymphocytes (%) (Auto) 4 % (24-48) Monocytes (%) (Auto) 9 % (0-9) Eosinophils (%) (Auto) 2 % (0-3) Basophils (%) (Auto) 0 % (0-3) Neutrophils # (Auto) 9.5 x10^3/uL (1.8-7.7) Lymphocytes # (Auto) 0.5 x10^3/uL (1.0-4.8) Monocytes # (Auto) 1.0 x10^3/uL (0.0-1.1) Eosinophils # (Auto) 0.2 x10^3/uL (0.0-0.7) Basophils # (Auto) 0.0 x10^3/uL (0.0-0.2) Sodium Level 138 mmol/L (136-145) Potassium Level 4.2 mmol/L (3.5-5.1) Chloride Level 99 mmol/L (98-107) Carbon Dioxide Level 25 mmol/L (21-32) Anion Gap 14 (6-14) Blood Urea Nitrogen 35 mg/dL (8-26) Creatinine 4.6 mg/dL (0.7-1.3) Estimated GFR (Cockcroft-Gault) 13.5 Glucose Level 306 mg/dL (70-99) Calcium Level 8.6 mg/dL (8.5-10.1) Glucose (Fingerstick) 299 mg/dL (70-99) Micro Microbiology 02/12/19 Throat Culture - Final, Complete 02/12/19 - Final, Complete 02/12/19 Blood Culture - Final, Complete NO GROWTH AFTER 5 DAYS 02/11/19 Urine Culture - Final, Complete 02/11/19 Urine Culture Result 1 (SABINE) - Final, Complete Objective Assessment Aspiration - pharyngitis is better - cults neg Dysphagia, failed swallow study - NPO ? etilogy Fever - Group A rapid neg. Leukocytosis - better Acute encephalopathy - improved SARAH requiring HD DKA Seizure Plan Plan of Care change Zosyn, renal dose to po augmentin Off azithromycin, Cultures neg Monitor labs PT/OT May need MRI head Clinically improving - looks well D/w family LUCRETIA XIONG MD Feb 18, 2019 11:20
[2019-02-18] MEDS ORDERED: MIDAZOLAM HCL/PF 2 MG/2 ML VIAL. ONE (13:05)
[2019-02-18] MEDS ORDERED: fentaNYL PF VIAL 100 MCG/2 ML VIAL ONE (13:05)
[2019-02-18] MEDS ORDERED: LIDOCAINE 1%/EPI 1:100,000 20 ML VIAL. ONE (13:16)
[2019-02-18] MEDS ORDERED: fentaNYL PF VIAL 100 MCG/2 ML VIAL IV ONE (14:00)
[2019-02-18] MEDS ORDERED: MIDAZOLAM HCL/PF 2 MG/2 ML VIAL. IV ONE (14:00)
[2019-02-18] MEDS ORDERED: IOHEXOL 240 MG/ML 50ML VIAL. IV ONE (14:00)
[2019-02-18] MEDS ORDERED: LIDOCAINE 1%/EPI 1:100,000 20 ML VIAL. SQ ONE (14:00)
--- NOTE | 2019-02-18 16:37 | PDOC ---
Renal-Progress Notes Subjective Notes Notes NO NEW COMPLAINTS History of Present Illness Hx of present illness STABLE Vitals Vitals Vital Signs Date Time Temp Pulse Resp B/P (MAP) Pulse Ox O2 Delivery O2 Flow Rate FiO2 02/18/19 15:00 97.5 91 18 155/75 (101) 96 Nasal Cannula 2.0 97.5 Weight Weight [ ] I.O. Intake and Output Intake and Output 02/18/19 07:00 Output Total 800 ml Balance -800 ml Output Urine Total 800 ml Labs Labs Laboratory Tests Test 02/17/19 18:11 02/18/19 01:11 02/18/19 05:49 02/18/19 06:00 Glucose (Fingerstick) 214 mg/dL (70-99) 266 mg/dL (70-99) 278 mg/dL (70-99) White Blood Count 11.2 x10^3/uL (4.0-11.0) Red Blood Count 2.72 x10^6/uL (4.30-5.70) Hemoglobin 8.9 g/dL (13.0-17.5) Hematocrit 26.0 % (39.0-53.0) Mean Corpuscular Volume 96 fL (79-100) Mean Corpuscular Hemoglobin 33 pg (25-35) Mean Corpuscular Hemoglobin Concent 34 g/dL (31-37) Red Cell Distribution Width 12.7 % (11.5-14.5) Platelet Count 157 x10^3/uL (140-400) Neutrophils (%) (Auto) 85 % (31-73) Lymphocytes (%) (Auto) 4 % (24-48) Monocytes (%) (Auto) 9 % (0-9) Eosinophils (%) (Auto) 2 % (0-3) Basophils (%) (Auto) 0 % (0-3) Neutrophils # (Auto) 9.5 x10^3/uL (1.8-7.7) Lymphocytes # (Auto) 0.5 x10^3/uL (1.0-4.8) Monocytes # (Auto) 1.0 x10^3/uL (0.0-1.1) Eosinophils # (Auto) 0.2 x10^3/uL (0.0-0.7) Basophils # (Auto) 0.0 x10^3/uL (0.0-0.2) Sodium Level 138 mmol/L (136-145) Potassium Level 4.2 mmol/L (3.5-5.1) Chloride Level 99 mmol/L (98-107) Carbon Dioxide Level 25 mmol/L (21-32) Anion Gap 14 (6-14) Blood Urea Nitrogen 35 mg/dL (8-26) Creatinine 4.6 mg/dL (0.7-1.3) Estimated GFR (Cockcroft-Gault) 13.5 Glucose Level 306 mg/dL (70-99) Calcium Level 8.6 mg/dL (8.5-10.1) Test 02/18/19 08:05 02/18/19 11:40 Glucose (Fingerstick) 299 mg/dL (70-99) 325 mg/dL (70-99) Micro Micro Microbiology 02/12/19 Throat Culture - Final, Complete 02/12/19 - Final, Complete 02/12/19 Blood Culture - Final, Complete NO GROWTH AFTER 5 DAYS 02/11/19 Urine Culture - Final, Complete 02/11/19 Urine Culture Result 1 (SABINE) - Final, Complete Review of Systems Constitutional: yes: alert, oriented Ears/Nose/Throat: Yes: no symptom reported Eyes: Yes: no symptom reported Pulmonary: Yes no symptom reported Cardiovascular: Yes no symptom reported Gastrointestional: Yes: no symptom reported Genitourinary: Yes: no symptom reported Musculoskeletal: Yes: no symptom reported Skin: Yes no symptom reported Psychiatric/Neurological: Yes: no symptom reported Endocrine: Yes: no symptom reported Physical Exam General Appearance: no apparent distress Skin: warm Respiratory: bilateral CTA Heart: S1S2, RRR Abdomen: soft, bowel sounds present Genitourinary: bladder flat Extremities: pulses present Neurology: alert, oriented Assessment Assessment IMP SARAH-NOT ENOUGH CLEARANCE-POSSIBLE ESRD SINCE WE HAVE NO BASELINE ANEMIA HTN DM II DKA-RESOLED PLAN HD TOMORROW CONT BRAD SW WILL NEED TO SET UP OP HD WILL HAVE IR CONVERT TEMP TO TUNNELED HD CATHETER JONI COX MD Feb 18, 2019 16:37
[2019-02-18] MEDS: ATORVASTATIN CALCIUM 20 MG TABLET PO SCH (19:52)
--- NOTE | 2019-02-18 20:29 | PDOC ---
PROGRESS NOTES Assessment Assessment Metabolic encephalopathy. Seizure, provoked. Hyperglycemia, glucose level 737 on 02/11/19. Diabetic ketoacidosis. DM, poorly controlled. Leukocytosis. Hyperkalemia. Hypocalcemia. Rhabdomyolysis. Acute renal failure. HTN. HLD. RECOMMENDATIONS/PLAN: Treat medical diseases. Continue ASA daily. Continue Lipitor HS. Control hyperglycemia. Discussed with his mother at bedside on 02/18/19. 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 Full 14-point review of systems is negative. MEDICATIONS: Refer to MAR PHYSICAL EXAMINATION: General appearance in no acute distress. HEENT: Normocephalic and nontraumatic. Eyes, nose, ears, and throat are unremarkable. Hearing decrease. Neck is supple. No lymphadenopathy. No bruits are heard over the carotid artery. No Crepitus. Cardiovascular: S1, S2, regular rate and rhythm. Pulmonary: Clear to auscultation bilaterally. Abdomen: Bowel sounds are positive. Abdomen is soft, nontender, and nondistended. Extremities: No rash, lesions, or edema. No restriction of range of motion NEUROLOGICAL EXAMINATION: Alert. Oriented to time, place and person. PERRL. EOMI. CN: no focal findings. Muscle tone: within normal. Muscle strength: 4+ DTR: 1-2 Plantar reflex: Flexor response bilaterally Gait: not examined in bed. Sensory exam: no abnormal findings. No cerebellar signs elicited. F-T-N test fine. Objective Objective Vital Signs Date Time Temp Pulse Resp B/P (MAP) Pulse Ox O2 Delivery O2 Flow Rate FiO2 02/18/19 15:00 97.5 91 18 155/75 (101) 96 Nasal Cannula 2.0 97.5 Intake and Output 02/18/19 07:00 Output Total 800 ml Balance -800 ml Output Urine Total 800 ml Vitals Signs Vitals VS - Last 72 Hours, by Label Date Time Temp Pulse Resp B/P (MAP) Pulse Ox O2 Delivery O2 Flow Rate FiO2 02/18/19 15:00 97.5 91 18 155/75 (101) 96 Nasal Cannula 2.0 97.5 02/18/19 14:13 97 18 92 Nasal Cannula 3.0 02/18/19 14:06 18 93 Nasal Cannula 2.0 02/18/19 11:00 97.4 98 18 163/80 (107) 92 Nasal Cannula 2.0 97.4 02/18/19 08:00 Nasal Cannula 2.0 02/18/19 07:00 97.8 94 18 166/83 (110) 93 Nasal Cannula 2.0 97.8 02/18/19 03:55 98.8 93 18 163/85 (111) 95 Nasal Cannula 2.0 98.8 02/17/19 23:45 98.7 93 18 146/81 (102) 94 Nasal Cannula 2.0 98.7 02/17/19 20:00 Nasal Cannula 2.0 02/17/19 19:04 98.2 95 18 112/82 (92) 94 Nasal Cannula 2.0 98.2 02/17/19 18:44 96 Nasal Cannula 2.0 02/17/19 18:07 96 Nasal Cannula 2.0 02/17/19 15:00 97.3 99 18 175/76 (109) 96 Nasal Cannula 2.0 97.3 02/17/19 08:09 Nasal Cannula 2.0 02/17/19 07:00 97.7 87 20 157/79 (105) 94 Nasal Cannula 2.0 97.7 Laboratory Laboratory Laboratory Tests Test 02/18/19 01:11 02/18/19 05:49 02/18/19 06:00 02/18/19 08:05 Glucose (Fingerstick) 266 mg/dL (70-99) 278 mg/dL (70-99) 299 mg/dL (70-99) White Blood Count 11.2 x10^3/uL (4.0-11.0) Red Blood Count 2.72 x10^6/uL (4.30-5.70) Hemoglobin 8.9 g/dL (13.0-17.5) Hematocrit 26.0 % (39.0-53.0) Mean Corpuscular Volume 96 fL (79-100) Mean Corpuscular Hemoglobin 33 pg (25-35) Mean Corpuscular Hemoglobin Concent 34 g/dL (31-37) Red Cell Distribution Width 12.7 % (11.5-14.5) Platelet Count 157 x10^3/uL (140-400) Neutrophils (%) (Auto) 85 % (31-73) Lymphocytes (%) (Auto) 4 % (24-48) Monocytes (%) (Auto) 9 % (0-9) Eosinophils (%) (Auto) 2 % (0-3) Basophils (%) (Auto) 0 % (0-3) Neutrophils # (Auto) 9.5 x10^3/uL (1.8-7.7) Lymphocytes # (Auto) 0.5 x10^3/uL (1.0-4.8) Monocytes # (Auto) 1.0 x10^3/uL (0.0-1.1) Eosinophils # (Auto) 0.2 x10^3/uL (0.0-0.7) Basophils # (Auto) 0.0 x10^3/uL (0.0-0.2) Sodium Level 138 mmol/L (136-145) Potassium Level 4.2 mmol/L (3.5-5.1) Chloride Level 99 mmol/L (98-107) Carbon Dioxide Level 25 mmol/L (21-32) Anion Gap 14 (6-14) Blood Urea Nitrogen 35 mg/dL (8-26) Creatinine 4.6 mg/dL (0.7-1.3) Estimated GFR (Cockcroft-Gault) 13.5 Glucose Level 306 mg/dL (70-99) Calcium Level 8.6 mg/dL (8.5-10.1) Test 02/18/19 11:40 02/18/19 16:48 Glucose (Fingerstick) 325 mg/dL (70-99) 362 mg/dL (70-99) Microbiology 02/12/19 Throat Culture - Final, Complete 02/12/19 - Final, Complete 02/12/19 Blood Culture - Final, Complete NO GROWTH AFTER 5 DAYS 02/11/19 Urine Culture - Final, Complete 02/11/19 Urine Culture Result 1 (SABINE) - Final, Complete Medication Medications Current Medications Amoxicillin/ Clavulanate Potassium (Augmentin 500/ 125mg) 1 tab BID PO ; Start 02/17/19 at 21:00; Stop 02/18/19 at 16:44; Status DC Amoxicillin/ Clavulanate Potassium (Augmentin 500/ 125mg) 1 tab QHS PO ; Start 02/18/19 at 21:00; Stop 02/18/19 at 17:20; Status DC Atorvastatin Calcium (Lipitor) 20 mg QHS PO ; Start 02/17/19 at 21:00 Darbepoetin Michael (ARANESP for DIALYSIS PTS) 60 mcg WEEKLYHS SQ Last administered on 02/17/19at 19:41; Start 02/17/19 at 21:00 Fentanyl Citrate (Fentanyl 2ml Vial) 100 mcg 1X ONCE IV Last administered on 02/18/19at 14:06; Start 02/18/19 at 14:00; Stop 02/18/19 at 14:03; Status DC Fentanyl Citrate (Fentanyl 2ml Vial) 100 mcg STK-MED ONCE .ROUTE ; Start 02/18/19 at 13:05; Stop 02/18/19 at 13:06; Status DC Iohexol (Omnipaque 240 Mg/ml) 50 ml 1X ONCE IV ; Start 02/18/19 at 14:00; Stop 02/18/19 at 14:07; Status DC Lactobacillus Rhamnosus (Culturelle) 1 cap BID PO ; Start 02/17/19 at 21:00 Lidocaine/ Epinephrine (LIDOCAINE 1%-EPI 1:100,000 Multi-Dose) 20 ml 1X ONCE SQ Last administered on 02/18/19at 14:06; Start 02/18/19 at 14:00; Stop 02/18/19 at 14:03; Status DC Lidocaine/ Epinephrine (LIDOCAINE 1%-EPI 1:100,000 Multi-Dose) 20 ml STK-MED ONCE .ROUTE ; Start 02/18/19 at 13:16; Stop 02/18/19 at 13:16; Status DC Midazolam HCl (Versed) 2 mg 1X ONCE IV Last administered on 02/18/19at 14:06; Start 02/18/19 at 14:00; Stop 02/18/19 at 14:03; Status DC Midazolam HCl (Versed) 2 mg STK-MED ONCE .ROUTE ; Start 02/18/19 at 13:05; Stop 02/18/19 at 13:06; Status DC Comment Review of Relevant I have reviewed the following items mindy (where applicable) has been applied. VINCENT CALIXTO MD Feb 18, 2019 20:29
[2019-02-18] MEDS ORDERED: AMOXICILLIN/K CLAV 500/125MG TABLET. PO SCH (21:00)
[2019-02-19] MEDS: INSULIN LISPRO 300 UNITS/3 ML INSULN.PEN. SQ SCH ×5 (01:24→21:18)
[2019-02-19 03:20] VITALS: BP 157/79
[2019-02-19] MEDS: AMINO AC 3%/ELECTROLYTE/GLYCER 1,000 ML IV SCH ×2 (06:46→17:15)
[2019-02-19 07:35] VITALS: BP 161/79
[2019-02-19] MEDS: ASPIRIN CHEWABLE 81 MG TABLET. PO SCH (08:00)
[2019-02-19] MEDS ORDERED: IV NORMAL SALINE 1000ML BAG 1,000 ML IV PRN ×2 (08:53)
[2019-02-19] MEDS ORDERED: DIALYSIS PATIENT. MC PRN ×2 (09:00)
[2019-02-19] MEDS ORDERED: ALBUMIN HUMAN 25% 200 ML IV PRN (09:00)
[2019-02-19] MEDS ORDERED: 0.9 % SODIUM CHLORIDE 10 ML DISP.SYRIN. IV PRN ×2 (09:00)
[2019-02-19] MEDS: LACTOBACILLUS RHAMNOSUS GG 1 CAPSULE. PO SCH ×2 (09:00→21:10)
--- NOTE | 2019-02-19 09:40 | PDOC ---
PROGRESS NOTES Chief Complaint Chief Complaint impression Acute DKA, resolved Altered mental status, resolved Seizure, resolved SARAH now on HD per nephro Sonographically unremarkable kidneys, with slightly limited evaluation of the left kidney due to respiratory motion. Hyperkalemia, resolved T2DM Leukocytosis Lactic acidosis Dysphagia /// Moderate to moderate-severe oropharyngeal dysphagia w/ pt demonstrating s/s aspiration on own secretions, Unsteady gait consider mri head 36 min pt exam, chart review, > 50% of time spent with exam, chart review, pt care coordination History of Present Illness History of Present Illness 02/18/19: renal dose to po augmentin Off azithromycin, cultures negative, including group A strep continue to adjust insulin as needed 02/14/19 Pt seen and examined in ICU [place] to BSD Pt sitting up in chair and communicative Anion gap 17 (14, 17 today) DW RN DW family 02/13/19 Pt seen and examined in ICU Venti mask at 50% O2 Pt sitting up in bed marked improvement Anion gap trending down ( 02/17 OP HD WILL HAVE IR CONVERT TEMP TO TUNNELED HD CATHETER Vitals Vitals Vital Signs Date Time Temp Pulse Resp B/P (MAP) Pulse Ox O2 Delivery O2 Flow Rate FiO2 02/19/19 07:35 97.7 89 20 161/79 (106) 95 Nasal Cannula 2.0 97.7 Physical Exam Physical Exam GENERAL: Up in the chair, HEENT: Pupils equally round. Oral cavity dry, black tongue NECK: Supple. LUNGS: Improved aeration, nonlabored. HEART: S1 and S2. ABDOMEN: Nondistended, soft, no guarding. Bowel sounds present. GENITOURINARY: Indwelling [place] in place. EXTREMITIES: No gross edema or cyanosis. SKIN: Warm to touch without signs of rash. NEUROLOGIC: Alert and oriented x 3 RIJ/HDC (8-6) without signs of any complications. General: Alert, Oriented X3, Cooperative, No acute distress, Other (non-verbal ) Heart: Regular rate, Normal S1, Other (distant heart tones) Lungs: Crackles Abdomen: Normal bowel sounds, Soft, No tenderness Extremities: No clubbing, No edema, Normal pulses Skin: No breakdown, No significant lesion Labs LABS Laboratory Tests Test 02/18/19 11:40 02/18/19 16:48 02/19/19 00:25 02/19/19 05:52 Glucose (Fingerstick) 325 mg/dL (70-99) 362 mg/dL (70-99) 323 mg/dL (70-99) 326 mg/dL (70-99) Assessment and Plan Assessmemt and Plan Problems Medical Problems: (1) DKA (diabetic ketoacidoses) Status: Acute (2) Elevated troponin Status: Acute (3) Renal failure Status: Acute Comment Review of Relevant I have reviewed the following items mindy (where applicable) has been applied. Labs Laboratory Tests Test 02/17/19 12:14 02/17/19 18:11 02/18/19 01:11 02/18/19 05:49 Glucose (Fingerstick) 133 mg/dL (70-99) 214 mg/dL (70-99) 266 mg/dL (70-99) 278 mg/dL (70-99) Test 02/18/19 06:00 02/18/19 08:05 02/18/19 11:40 02/18/19 16:48 White Blood Count 11.2 x10^3/uL (4.0-11.0) Red Blood Count 2.72 x10^6/uL (4.30-5.70) Hemoglobin 8.9 g/dL (13.0-17.5) Hematocrit 26.0 % (39.0-53.0) Mean Corpuscular Volume 96 fL (79-100) Mean Corpuscular Hemoglobin 33 pg (25-35) Mean Corpuscular Hemoglobin Concent 34 g/dL (31-37) Red Cell Distribution Width 12.7 % (11.5-14.5) Platelet Count 157 x10^3/uL (140-400) Neutrophils (%) (Auto) 85 % (31-73) Lymphocytes (%) (Auto) 4 % (24-48) Monocytes (%) (Auto) 9 % (0-9) Eosinophils (%) (Auto) 2 % (0-3) Basophils (%) (Auto) 0 % (0-3) Neutrophils # (Auto) 9.5 x10^3/uL (1.8-7.7) Lymphocytes # (Auto) 0.5 x10^3/uL (1.0-4.8) Monocytes # (Auto) 1.0 x10^3/uL (0.0-1.1) Eosinophils # (Auto) 0.2 x10^3/uL (0.0-0.7) Basophils # (Auto) 0.0 x10^3/uL (0.0-0.2) Sodium Level 138 mmol/L (136-145) Potassium Level 4.2 mmol/L (3.5-5.1) Chloride Level 99 mmol/L (98-107) Carbon Dioxide Level 25 mmol/L (21-32) Anion Gap 14 (6-14) Blood Urea Nitrogen 35 mg/dL (8-26) Creatinine 4.6 mg/dL (0.7-1.3) Estimated GFR (Cockcroft-Gault) 13.5 Glucose Level 306 mg/dL (70-99) Calcium Level 8.6 mg/dL (8.5-10.1) Glucose (Fingerstick) 299 mg/dL (70-99) 325 mg/dL (70-99) 362 mg/dL (70-99) Test 02/19/19 00:25 02/19/19 05:52 Glucose (Fingerstick) 323 mg/dL (70-99) 326 mg/dL (70-99) Laboratory Tests Test 02/18/19 11:40 02/18/19 16:48 02/19/19 00:25 02/19/19 05:52 Glucose (Fingerstick) 325 mg/dL (70-99) 362 mg/dL (70-99) 323 mg/dL (70-99) 326 mg/dL (70-99) Microbiology 02/12/19 Throat Culture - Final, Complete 02/12/19 - Final, Complete 02/12/19 Blood Culture - Final, Complete NO GROWTH AFTER 5 DAYS 02/11/19 Urine Culture - Final, Complete 02/11/19 Urine Culture Result 1 (SABINE) - Final, Complete Medications Current Medications Sodium Chloride 1,000 ml @ 1,000 mls/hr 1X ONCE IV Last administered on 02/11/19at 19:19; Start 02/11/19 at 19:15; Stop 02/11/19 at 20:14; Status DC Sodium Chloride 1,000 ml @ 1,000 mls/hr 1X ONCE IV Last administered on 02/11/19at 20:21; Start 02/11/19 at 20:00; Stop 02/11/19 at 20:59; Status DC Insulin Human Regular (HumuLIN R VIAL) 9 unit 1X ONCE SQ Last administered on 02/11/19at 20:21; Start 02/11/19 at 20:00; Stop 02/11/19 at 20:01; Status DC Insulin Human Regular 150 unit/ Sodium Chloride 151.5 ml @ 0 mls/hr CONT PRN PRN IV PER PROTOCOL Last administered on 02/13/19at 06:10; Start 02/11/19 at 20:00 Potassium Chloride/Water 100 ml @ 100 mls/hr PRN Q1HR PRN IV SEE COMMENTS; Start 02/11/19 at 20:00 Potassium Chloride/Water 100 ml @ 100 mls/hr PRN Q1HR PRN IV SEE COMMENTS; Start 02/11/19 at 20:00 Potassium Chloride/Water 100 ml @ 100 mls/hr PRN Q1HR PRN IV SEE COMMENTS; Start 02/11/19 at 20:00 Magnesium Sulfate/ Dextrose 100 ml @ 25 mls/hr PRN DAILY PRN IV SEE COMMENTS; Start 02/12/19 at 09:00 Aspirin (Aspirin Rectal Supp) 300 mg 1X ONCE IL Last administered on 02/11/19at 20:21; Start 02/11/19 at 20:00; Stop 02/11/19 at 20:03; Status DC Insulin Human Regular 150 ml @ 0 mls/hr CONT PRN PRN IV PER PROTOCOL Last administered on 02/11/19at 20:21; Start 02/11/19 at 20:15; Stop 02/11/19 at 23:00; Status DC Ondansetron HCl (Zofran) 4 mg PRN Q8HRS PRN IV NAUSEA/VOMITING; Start 02/11/19 at 20:30; Stop 02/12/19 at 20:29; Status DC Calcium Gluconate (Calcium Gluconate) 1,000 mg 1X ONCE IVP Last administered on 02/11/19at 21:29; Start 02/11/19 at 21:00; Stop 02/11/19 at 21:01; Status DC Sodium Chloride 1,000 ml @ 500 mls/hr 1X ONCE IV Last administered on 02/11/19at 21:29; Start 02/11/19 at 21:30; Stop 02/11/19 at 23:29; Status DC Lidocaine/Sodium Bicarbonate (Buffered Lidocaine 1%) 3 ml STK-MED ONCE .ROUTE ; Start 02/11/19 at 22:37; Stop 02/11/19 at 22:37; Status DC Lidocaine/Sodium Bicarbonate (Buffered Lidocaine 1%) 3 ml 1X ONCE IJ Last a dministered on 02/11/19at 23:10; Start 02/11/19 at 23:00; Stop 02/11/19 at 23:01; Status DC Sodium Chloride 1,000 ml @ 1,000 mls/hr Q1H PRN IV hypotension; Start 02/11/19 at 23:23; Stop 02/12/19 at 05:22; Status DC Sodium Chloride 1,000 ml @ 400 mls/hr Q2H30M PRN IV PATENCY; Start 02/11/19 at 23:23; Stop 02/12/19 at 11:22; Status DC Info (PHARMACY MONITORING -- do not chart) 1 each PRN DAILY PRN MC SEE COMMENTS; Start 02/11/19 at 23:30; Status UNV Info (PHARMACY MONITORING -- do not chart) 1 each PRN DAILY PRN MC SEE COMMENTS; Start 02/11/19 at 23:30; Stop 02/12/19 at 18:07; Status DC Sodium Chloride 1,000 ml @ 250 mls/hr Q4H IV Last administered on 02/12/19at 00:20; Start 02/12/19 at 00:14; Stop 02/12/19 at 01:32; Status DC Piperacillin Sod/ Tazobactam Sod 3.375 gm/Sodium Chloride 50 ml @ 100 mls/hr Q6HRS IV ; Start 02/12/19 at 01:00; Status UNV Piperacillin Sod/ Tazobactam Sod 2.25 gm/Sodium Chloride 50 ml @ 100 mls/hr Q8HRS IV Last administered on 02/17/19at 05:59; Start 02/12/19 at 01:00; Stop 02/17/19 at 13:26; Status DC Dextrose/Sodium Chloride 1,000 ml @ 250 mls/hr Q4H IV Last administered on 02/12/19at 15:39; Start 02/12/19 at 01:32; Stop 02/12/19 at 21:05; Status DC Lorazepam (Ativan Inj) 1 mg PRN Q10MIN PRN IV SEIZURE; Start 02/12/19 at 03:00 Sodium Chloride 250 ml @ 250 mls/hr 1X ONCE IV Last administered on 02/12/19at 05:25; Start 02/12/19 at 05:00; Stop 02/12/19 at 05:59; Status DC Azithromycin 500 mg/Sodium Chloride 250 ml @ 250 mls/hr 1X ONCE IV Last administered on 02/12/19at 05:25; Start 02/12/19 at 05:00; Stop 02/12/19 at 05:59; Status DC Potassium Chloride/Water 50 ml @ 25 mls/hr Q2H IV Last administered on 02/12/19at 10:06; Start 02/12/19 at 08:00; Stop 02/12/19 at 11:59; Status DC Azithromycin 250 ml @ 250 mls/hr 1X ONCE IV ; Start 02/13/19 at 05:00; Stop 02/12/19 at 11:37; Status DC Azithromycin 500 mg/Sodium Chloride 250 ml @ 250 mls/hr 1X ONCE IV Last administered on 02/13/19at 04:33; Start 02/13/19 at 05:00; Stop 02/13/19 at 05:59; Status DC Potassium Chloride/Water 50 ml @ 25 mls/hr Q2H IV Last administered on 02/12/19at 18:18; Start 02/12/19 at 16:00; Stop 02/12/19 at 19:59; Status DC Sodium Chloride 1,000 ml @ 1,000 mls/hr Q1H PRN IV hypotension; Start 02/12/19 at 15:00; Stop 02/12/19 at 20:59; Status DC Sodium Chloride (Normal Saline Flush) 10 ml 1X PRN PRN IV AP catheter pack; Start 02/12/19 at 15:00; Stop 02/13/19 at 14:17; Status DC Sodium Chloride (Normal Saline Flush) 10 ml 1X PRN PRN IV PRODUCTION GRIP catheter pack; Start 02/12/19 at 15:00; Stop 02/13/19 at 14:17; Status DC Sodium Chloride 1,000 ml @ 400 mls/hr Q2H30M PRN IV PATENCY; Start 02/12/19 at 15:00; Stop 02/13/19 at 02:59; Status DC Info (PHARMACY MONITORING -- do not chart) 1 each PRN DAILY PRN MC SEE COMMENTS; Start 02/12/19 at 18:00; Stop 02/12/19 at 18:07; Status DC Info (PHARMACY MONITORING -- do not chart) 1 each PRN DAILY PRN MC SEE COMMENTS; Start 02/12/19 at 18:00; Status Cancel Sodium Chloride 1,000 ml @ 75 mls/hr [id number] IV Last administered on 02/15/19at 22:35; Start 02/12/19 at 20:45; Stop 02/16/19 at 13:48; Status DC Dextrose (Dextrose 50%-Water Syringe) 12.5 gm PRN Q15MIN PRN IV SEE COMMENTS Last administered on 02/13/19at 11:44; Start 02/12/19 at 20:45 Hydralazine HCl (Apresoline Inj) 10 mg PRN Q4HRS PRN IVP ELEVATED BP, SEE COMMENTS Last administered on 02/16/19at 21:14; Start 02/12/19 at 20:45 Insulin Human Lispro (HumaLOG) 0-5 UNITS Q6HRS SQ Last administered on 02/19/19at 05:57; Start 02/13/19 at 00:00 Albuterol Sulfate (Ventolin Neb Soln) 2.5 mg 1X ONCE NEB Last administered on 02/13/19at 01:01; Start 02/13/19 at 01:00; Stop 02/13/19 at 01:01; Status DC Ondansetron HCl (Zofran) 4 mg PRN Q6HRS PRN IV NAUSEA/VOMITING Last administered on 02/15/19at 06:08; Start 02/13/19 at 03:30 Scopolamine (Transderm-Scop) 1 patch 1X ONCE TD Last administered on 02/13/19at 13:44; Start 02/13/19 at 11:45; Stop 02/13/19 at 11:46; Status DC Azithromycin 500 mg/Sodium Chloride 250 ml @ 250 mls/hr 1X ONCE IV Last administered on 02/14/19at 04:32; Start 02/14/19 at 05:00; Stop 02/14/19 at 05:59; Status DC Sodium Chloride 1,000 ml @ 1,000 mls/hr Q1H PRN IV hypotension; Start 02/14/19 at 11:09; Stop 02/14/19 at 17:08; Status DC Albumin Human 200 ml @ 200 mls/hr 1X PRN PRN IV Hypotension; Start 02/14/19 at 11:15; Stop 02/14/19 at 17:14; Status DC Sodium Chloride (Normal Saline Flush) 10 ml 1X PRN PRN IV AP catheter pack; Start 02/14/19 at 11:15; Stop 02/15/19 at 11:14; Status DC Sodium Chloride (Normal Saline Flush) 10 ml 1X PRN PRN IV PRODUCTION GRIP catheter pack; Start 02/14/19 at 11:15; Stop 02/15/19 at 11:14; Status DC Sodium Chloride 1,000 ml @ 400 mls/hr Q2H30M PRN IV PATENCY; Start 02/14/19 at 11:09; Stop 02/14/19 at 23:08; Status DC Info (PHARMACY MONITORING -- do not chart) 1 each PRN DAILY PRN MC SEE COMMENTS; Start 02/14/19 at 11:15; Status UNV Info (PHARMACY MONITORING -- do not chart) 1 each PRN DAILY PRN MC SEE COMMENTS; Start 02/14/19 at 11:15; Status UNV Morphine Sulfate (Morphine Sulfate) 2 mg PRN Q4HRS PRN IV PAIN Last ad ministered on 02/17/19at 18:07; Start 02/15/19 at 21:30 Sodium Chloride 1,000 ml @ 50 mls/hr Q20H IV Last administered on 02/16/19at 18:29; Start 02/16/19 at 18:00; Stop 02/17/19 at 15:12; Status DC Sodium Chloride 1,000 ml @ 1,000 mls/hr Q1H PRN IV hypotension; Start 02/17/19 at 07:39; Stop 02/17/19 at 13:38; Status DC Diphenhydramine HCl (Benadryl) 25 mg 1X PRN PRN IV ITCHING; Start 02/17/19 at 07:45; Stop 02/18/19 at 07:44; Status DC Diphenhydramine HCl (Benadryl) 25 mg 1X PRN PRN IV ITCHING; Start 02/17/19 at 07:45; Stop 02/18/19 at 07:44; Status DC Sodium Chloride 1,000 ml @ 400 mls/hr Q2H30M PRN IV PATENCY; Start 02/17/19 at 07:39; Stop 02/17/19 at 19:38; Status DC Info (PHARMACY MONITORING -- do not chart) 1 each PRN DAILY PRN MC SEE COMMENT S; Start 02/17/19 at 07:45 Aspirin (Children'S Aspirin) 81 mg DAILYWBKFT PO ; Start 02/17/19 at 12:30 Atorvastatin Calcium (Lipitor) 20 mg QHS PO ; Start 02/17/19 at 21:00 Darbepoetin Michael (ARANESP for DIALYSIS PTS) 60 mcg WEEKLYHS SQ Last administered on 02/17/19at 19:41; Start 02/17/19 at 21:00 Amoxicillin/ Clavulanate Potassium (Augmentin 500/ 125mg) 1 tab BID PO ; Start 02/17/19 at 21:00; Stop 02/18/19 at 16:44; Status DC Amino Acids/ Glycerin/ Electrolytes 1,000 ml @ 80 mls/hr [id number] IV Last administered on 02/19/19at 06:46; Start 02/17/19 at 15:15 Lactobacillus Rhamnosus (Culturelle) 1 cap BID PO ; Start 02/17/19 at 21:00 Midazolam HCl (Versed) 2 mg STK-MED ONCE .ROUTE ; Start 02/18/19 at 13:05; Stop 02/18/19 at 13:06; Status DC Fentanyl Citrate (Fentanyl 2ml Vial) 100 mcg STK-MED ONCE .ROUTE ; Start 02/18/19 at 13:05; Stop 02/18/19 at 13:06; Status DC Lidocaine/ Epinephrine (LIDOCAINE 1%-EPI 1:100,000 Multi-Dose) 20 ml STK-MED ONCE .ROUTE ; Start 02/18/19 at 13:16; Stop 02/18/19 at 13:16; Status DC Midazolam HCl (Versed) 2 mg 1X ONCE IV Last administered on 02/18/19at 14:06; Start 02/18/19 at 14:00; Stop 02/18/19 at 14:03; Status DC Fentanyl Citrate (Fentanyl 2ml Vial) 100 mcg 1X ONCE IV Last administered on 02/18/19at 14:06; Start 02/18/19 at 14:00; Stop 02/18/19 at 14:03; Status DC Lidocaine/ Epinephrine (LIDOCAINE 1%-EPI 1:100,000 Multi-Dose) 20 ml 1X ONCE SQ Last administered on 02/18/19at 14:06; Start 02/18/19 at 14:00; Stop 02/18/19 at 14:03; Status DC Iohexol (Omnipaque 240 Mg/ml) 50 ml 1X ONCE IV ; Start 02/18/19 at 14:00; Stop 02/18/19 at 14:07; Status DC Amoxicillin/ Clavulanate Potassium (Augmentin 500/ 125mg) 1 tab QHS PO ; Start 02/18/19 at 21:00; Stop 02/18/19 at 17:20; Status DC Sodium Chloride 1,000 ml @ 1,000 mls/hr Q1H PRN IV hypotension; Start 02/19/19 at 08:53; Stop 02/19/19 at 14:52 Albumin Human 200 ml @ 200 mls/hr 1X PRN PRN IV Hypotension; Start 02/19/19 at 09:00; Stop 02/19/19 at 14:59 Sodium Chloride (Normal Saline Flush) 10 ml 1X PRN PRN IV AP catheter pack; S tart 02/19/19 at 09:00; Stop 02/20/19 at 08:59 Sodium Chloride (Normal Saline Flush) 10 ml 1X PRN PRN IV PRODUCTION GRIP catheter pack; Start 02/19/19 at 09:00; Stop 02/20/19 at 08:59 Sodium Chloride 1,000 ml @ 400 mls/hr Q2H30M PRN IV PATENCY; Start 02/19/19 at 08:53; Stop 02/19/19 at 20:52 Info (PHARMACY MONITORING -- do not chart) 1 each PRN DAILY PRN MC SEE COMMENTS; Start 02/19/19 at 09:00; Status UNV Info (PHARMACY MONITORING -- do not chart) 1 each PRN DAILY PRN MC SEE COMMENTS; Start 02/19/19 at 09:00 Active Scripts Active Reported Metformin Hcl 500 Mg Tablet 500 Mg PO BIDWMEALS Vitals/I & O Vital Sign - Last 24 Hours 02/18/19 02/18/19 02/18/19 02/18/19 11:00 14:06 14:13 15:00 Temp 97.4 97.5 97.4 97.5 Pulse 98 97 91 Resp 18 18 18 18 B/P (MAP) 163/80 (107) 155/75 (101) Pulse Ox 92 93 92 96 O2 Delivery Nasal Cannula Nasal Cannula Nasal Cannula Nasal Cannula O2 Flow Rate 2.0 2.0 3.0 2.0 02/18/19 02/18/19 02/18/19 02/19/19 19:17 20:00 23:00 03:20 Temp 97.6 98.3 98.4 97.6 98.3 98.4 Pulse 88 86 90 Resp 18 18 18 B/P (MAP) 141/80 (100) 161/77 (105) 157/79 (105) Pulse Ox 94 96 93 O2 Delivery Nasal Cannula Nasal Cannula Nasal Cannula Nasal Cannula O2 Flow Rate 2.0 2.0 2.0 2.0 02/19/19 07:35 Temp 97.7 97.7 Pulse 89 Resp 20 B/P (MAP) 161/79 (106) Pulse Ox 95 O2 Delivery Nasal Cannula O2 Flow Rate 2.0 Intake and Output 02/18/19 02/18/19 02/19/19 14:59 22:59 06:59 Intake Total 0 ml Output Total 550 ml 450 ml 650 ml Balance -550 ml -450 ml -650 ml RUFINO GRANDE MD Feb 19, 2019 09:40
--- NOTE | 2019-02-19 12:01 | PDOC ---
Infectious Disease Note Subjective Subjective pt is feeling ok, throat is feeling better ROS ROS no n/v/d/sob Vital Sign Vital Signs Vital Signs Date Time Temp Pulse Resp B/P (MAP) Pulse Ox O2 Delivery O2 Flow Rate FiO2 02/19/19 08:00 Nasal Cannula 2.0 02/19/19 07:35 97.7 89 20 161/79 (106) 95 97.7 Physical Exam PHYSICAL EXAM GENERAL: Up in the chair, HEENT: Pupils equally round. Oral cavity dry, black tongue NECK: Supple. LUNGS: Improved aeration, nonlabored. HEART: S1 and S2. ABDOMEN: Nondistended, soft, no guarding. Bowel sounds present. GENITOURINARY: Indwelling [place] in place. EXTREMITIES: No gross edema or cyanosis. SKIN: Warm to touch without signs of rash. NEUROLOGIC: Alert and oriented x 3 RIJ/HDC (8-6) without signs of any complications. Labs Lab Laboratory Tests Test 02/18/19 16:48 02/19/19 00:25 02/19/19 05:52 Glucose (Fingerstick) 362 mg/dL (70-99) 323 mg/dL (70-99) 326 mg/dL (70-99) Micro Microbiology 02/12/19 Throat Culture - Final, Complete 02/12/19 - Final, Complete 02/12/19 Blood Culture - Final, Complete NO GROWTH AFTER 5 DAYS 02/11/19 Urine Culture - Final, Complete 02/11/19 Urine Culture Result 1 (SABINE) - Final, Complete Objective Assessment Aspiration - pharyngitis is better - cults neg Dysphagia, failed swallow study - NPO ? etilogy Fever - Group A rapid neg. Leukocytosis - better Acute encephalopathy - improved SARAH requiring HD DKA Seizure Plan Plan of Care off antibiotics Cultures neg Monitor labs PT/OT May need MRI head Clinically improving - looks well D/w family LUCRETIA XIONG MD Feb 19, 2019 12:01
[2019-02-19] MEDS ORDERED: BARIUM SULFATE 40% (APPLE) 148 GM PWD. PO ONE (14:15)
--- NOTE | 2019-02-19 14:32 | PDOC ---
Renal-Progress Notes Subjective Notes Notes NO NEW COMPLAINTS History of Present Illness Hx of present illness STABLE Vitals Vitals Vital Signs Date Time Temp Pulse Resp B/P (MAP) Pulse Ox O2 Delivery O2 Flow Rate FiO2 02/19/19 08:00 Nasal Cannula 2.0 02/19/19 07:35 97.7 89 20 161/79 (106) 95 97.7 Weight Weight [ ] I.O. Intake and Output Intake and Output 02/19/19 07:00 Intake Total 0 ml Output Total 1650 ml Balance -1650 ml Intake Oral 0 ml Output Urine Total 1650 ml Labs Labs Laboratory Tests Test 02/18/19 16:48 02/19/19 00:25 02/19/19 05:52 02/19/19 13:55 Glucose (Fingerstick) 362 mg/dL (70-99) 323 mg/dL (70-99) 326 mg/dL (70-99) 174 mg/dL (70-99) Micro Micro Microbiology 02/12/19 Throat Culture - Final, Complete 02/12/19 - Final, Complete 02/12/19 Blood Culture - Final, Complete NO GROWTH AFTER 5 DAYS 02/11/19 Urine Culture - Final, Complete 02/11/19 Urine Culture Result 1 (SABINE) - Final, Complete Review of Systems Constitutional: yes: alert, oriented Ears/Nose/Throat: Yes: no symptom reported Eyes: Yes: no symptom reported Pulmonary: Yes no symptom reported Cardiovascular: Yes no symptom reported Gastrointestional: Yes: no symptom reported Genitourinary: Yes: no symptom reported Musculoskeletal: Yes: no symptom reported Skin: Yes no symptom reported Psychiatric/Neurological: Yes: no symptom reported Endocrine: Yes: no symptom reported Physical Exam General Appearance: no apparent distress Skin: warm Respiratory: bilateral CTA Heart: S1S2, RRR Abdomen: soft, bowel sounds present Genitourinary: bladder flat Extremities: pulses present Neurology: alert, oriented Assessment Assessment IMP SARAH-NOT ENOUGH CLEARANCE-POSSIBLE ESRD SINCE WE HAVE NO BASELINE ANEMIA HTN DM II DKA-RESOLED S/P TUNNELED HD CATHETER PLAN HD TODAY UF TO DW CONT BRAD SW WILL NEED TO SET UP OP HD WILL HAVE IR CONVERT TEMP TO TUNNELED HD CATHETER JONI COX MD Feb 19, 2019 14:32
[2019-02-19 15:20] VITALS: BP 137/76
[2019-02-19 16:32] LABS: BASO # 0.1 x10^3/uL (0.0-0.2); BASO % 1 % (0-3); EOS # 0.1 x10^3/uL (0.0-0.7); EOS % 1 % (0-3); HEMATOCRIT 28.5 % (39.0-53.0); HEMOGLOBIN 9.7 g/dL (13.0-17.5); LYMPH # 0.4 x10^3/uL (1.0-4.8); LYMPH % 3 % (24-48); MEAN CORPUSCULAR HEMOGLOBIN 32 pg (25-35); MEAN CORPUSCULAR HGB CONC 34 g/dL (31-37); MEAN CORPUSCULAR VOLUME 95 fL (79-100); MONO # 1.1 x10^3/uL (0.0-1.1); MONO % 8 % (0-9); NEUT # 12.6 x10^3/uL (1.8-7.7); NEUT % 88 % (31-73); PLATELET COUNT 170 x10^3/uL (140-400); RED CELL DISTRIBUTION WIDTH 12.6 % (11.5-14.5); WHITE BLOOD COUNT 14.2 x10^3/uL (4.0-11.0)
--- NOTE | 2019-02-19 16:33 | RAD ---
Exam: Video Swallowing Study Date: 02/19/2019 History: Clinical suspicion for aspiration Comparison: None Procedure: Video fluoroscopy of the neck was performed from the lateral projection following ingestion of various consistency barium which was administered by the speech pathologist. Fluoroscopy time: 1.4 minutes Findings/ Impression: There was aspiration with thin consistency barium were administered to the patient. When patient administered himself the various contrast materials no definite aspiration. Please see speech pathology's report for further details of examination. Electronically signed by: Vinh Harris MD (02/19/2019 4:30 PM) [facility]
[2019-02-19 16:43] LABS: CALCIUM 8.9 mg/dL (8.5-10.1); CREATININE 3.1 mg/dL (0.7-1.3); GFR 21.3; POTASSIUM 4.3 mmol/L (3.5-5.1)
[2019-02-19] MEDS: MORPHINE SULFATE 2 MG/ML VIAL. IV PRN (16:44)
[2019-02-19 17:09] LABS: % EOS 1 % (0-5); % LYMPHS 2 % (24-48); % MONOS 7 % (0-10); % SEGS 90 % (35-66)
[2019-02-19 17:10] LABS: PLT ESTIMATE ADEQUATE (ADEQUATE)
[2019-02-19 17:12] LABS: TOXIC GRANULATION SLIGHT
--- NOTE | 2019-02-19 17:46 | PDOC ---
PROGRESS NOTES Assessment Assessment Metabolic encephalopathy. Seizure, provoked. Hyperglycemia, glucose level 737 on 02/11/19. Diabetic ketoacidosis. DM, poorly controlled. Leukocytosis. Hyperkalemia. Hypocalcemia. Rhabdomyolysis. Acute renal failure. HTN. HLD. Dysphagia, passed swallow test reportedly. RECOMMENDATIONS/PLAN: Treat medical diseases. Continue ASA daily. Continue Lipitor HS. Control hyperglycemia. Discussed with his mother again at bedside on 02/19/19. 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 Full 14-point review of systems is negative. MEDICATIONS: Refer to MAR PHYSICAL EXAMINATION: General appearance in no acute distress. HEENT: Normocephalic and nontraumatic. Eyes, nose, ears, and throat are unremarkable. Hearing decrease. Neck is supple. No lymphadenopathy. No bruits are heard over the carotid artery. No Crepitus. Cardiovascular: S1, S2, regular rate and rhythm. Pulmonary: Clear to auscultation bilaterally. Abdomen: Bowel sounds are positive. Abdomen is soft, nontender, and nondistended. Extremities: No rash, lesions, or edema. No restriction of range of motion NEUROLOGICAL EXAMINATION: Alert. Oriented to time, place and person. PERRL. EOMI. CN: no focal findings. Muscle tone: within normal. Muscle strength: 4+ DTR: 1-2 Plantar reflex: Flexor response bilaterally Gait: not examined in bed. Sensory exam: no abnormal findings. No cerebellar signs elicited. F-T-N test fine. Objective Objective Vital Signs Date Time Temp Pulse Resp B/P (MAP) Pulse Ox O2 Delivery O2 Flow Rate FiO2 02/19/19 17:23 95 Nasal Cannula 2.0 02/19/19 15:20 99.2 100 20 137/76 (96) 99.2 Intake and Output 02/19/19 07:00 Intake Total 0 ml Output Total 1650 ml Balance -1650 ml Intake Oral 0 ml Output Urine Total 1650 ml Vitals Signs Vitals VS - Last 72 Hours, by Label Date Time Temp Pulse Resp B/P (MAP) Pulse Ox O2 Delivery O2 Flow Rate FiO2 02/19/19 17:23 95 Nasal Cannula 2.0 02/19/19 16:44 95 Nasal Cannula 2.0 02/19/19 15:20 99.2 100 20 137/76 (96) 96 Nasal Cannula 2.0 99.2 02/19/19 08:00 Nasal Cannula 2.0 02/19/19 07:35 97.7 89 20 161/79 (106) 95 Nasal Cannula 2.0 97.7 02/19/19 03:20 98.4 90 18 157/79 (105) 93 Nasal Cannula 2.0 98.4 02/18/19 23:00 98.3 86 18 161/77 (105) 96 Nasal Cannula 2.0 98.3 02/18/19 20:00 Nasal Cannula 2.0 02/18/19 19:17 97.6 88 18 141/80 (100) 94 Nasal Cannula 2.0 97.6 02/18/19 15:00 97.5 91 18 155/75 (101) 96 Nasal Cannula 2.0 97.5 02/18/19 14:13 97 18 92 Nasal Cannula 3.0 02/18/19 14:06 18 93 Nasal Cannula 2.0 02/18/19 11:00 97.4 98 18 163/80 (107) 92 Nasal Cannula 2.0 97.4 02/18/19 08:00 Nasal Cannula 2.0 02/18/19 07:00 97.8 94 18 166/83 (110) 93 Nasal Cannula 2.0 97.8 Laboratory Laboratory Laboratory Tests Test 02/19/19 00:25 02/19/19 05:52 02/19/19 13:55 02/19/19 16:25 Glucose (Fingerstick) 323 mg/dL (70-99) 326 mg/dL (70-99) 174 mg/dL (70-99) White Blood Count 14.2 x10^3/uL (4.0-11.0) Red Blood Count 3.00 x10^6/uL (4.30-5.70) Hemoglobin 9.7 g/dL (13.0-17.5) Hematocrit 28.5 % (39.0-53.0) Mean Corpuscular Volume 95 fL (79-100) Mean Corpuscular Hemoglobin 32 pg (25-35) Mean Corpuscular Hemoglobin Concent 34 g/dL (31-37) Red Cell Distribution Width 12.6 % (11.5-14.5) Platelet Count 170 x10^3/uL (140-400) Neutrophils (%) (Auto) 88 % (31-73) Lymphocytes (%) (Auto) 3 % (24-48) Monocytes (%) (Auto) 8 % (0-9) Eosinophils (%) (Auto) 1 % (0-3) Basophils (%) (Auto) 1 % (0-3) Neutrophils # (Auto) 12.6 x10^3/uL (1.8-7.7) Lymphocytes # (Auto) 0.4 x10^3/uL (1.0-4.8) Monocytes # (Auto) 1.1 x10^3/uL (0.0-1.1) Eosinophils # (Auto) 0.1 x10^3/uL (0.0-0.7) Basophils # (Auto) 0.1 x10^3/uL (0.0-0.2) Segmented Neutrophils % 90 % (35-66) Lymphocytes % 2 % (24-48) Monocytes % 7 % (0-10) Eosinophils % 1 % (0-5) Toxic Granulation Slight Platelet Estimate Adequate (ADEQUATE) Sodium Level 137 mmol/L (136-145) Potassium Level 4.3 mmol/L (3.5-5.1) Chloride Level 98 mmol/L (98-107) Carbon Dioxide Level 24 mmol/L (21-32) Anion Gap 15 (6-14) Blood Urea Nitrogen 23 mg/dL (8-26) Creatinine 3.1 mg/dL (0.7-1.3) Estimated GFR (Cockcroft-Gault) 21.3 Glucose Level 251 mg/dL (70-99) Calcium Level 8.9 mg/dL (8.5-10.1) Test 02/19/19 17:07 Glucose (Fingerstick) 245 mg/dL (70-99) Microbiology 02/12/19 Throat Culture - Final, Complete 02/12/19 - Final, Complete 02/12/19 Blood Culture - Final, Complete NO GROWTH AFTER 5 DAYS 02/11/19 Urine Culture - Final, Complete 02/11/19 Urine Culture Result 1 (SABINE) - Final, Complete Medication Medications Current Medications Albumin Human 200 ml @ 200 mls/hr 1X PRN PRN IV Hypotension; Start 02/19/19 at 09:00; Stop 02/19/19 at 14:59; Status DC Amoxicillin/ Clavulanate Potassium (Augmentin 500/ 125mg) 1 tab QHS PO ; Start 02/18/19 at 21:00; Stop 02/18/19 at 17:20; Status DC Barium Sulfate (Varibar Thin Liquid Apple) 148 gm 1X ONCE PO Last administered on 02/19/19at 14:39; Start 02/19/19 at 14:15; Stop 02/19/19 at 14:16; Status DC Info (PHARMACY MONITORING -- do not chart) 1 each PRN DAILY PRN MC SEE COMMENTS; Start 02/19/19 at 09:00 Info (PHARMACY MONITORING -- do not chart) 1 each PRN DAILY PRN MC SEE COMMENTS; Start 02/19/19 at 09:00; Status UNV Insulin Human Lispro (HumaLOG) 0-5 UNITS QIDACHS SQ ; Start 02/19/19 at 16:30 Sodium Chloride 1,000 ml @ 400 mls/hr Q2H30M PRN IV PATENCY; Start 02/19/19 at 08:53; Stop 02/19/19 at 20:52 Sodium Chloride 1,000 ml @ 1,000 mls/hr Q1H PRN IV hypotension; Start 02/19/19 at 08:53; Stop 02/19/19 at 14:52; Status DC Sodium Chloride (Normal Saline Flush) 10 ml 1X PRN PRN IV AP catheter pack; Start 02/19/19 at 09:00; Stop 02/20/19 at 08:59 Sodium Chloride (Normal Saline Flush) 10 ml 1X PRN PRN IV PHOTOGRAPHS CURATOR catheter pack; Start 02/19/19 at 09:00; Stop 02/20/19 at 08:59 Comment Review of Relevant I have reviewed the following items mindy (where applicable) has been applied. VINCENT CALIXTO MD Feb 19, 2019 17:46
[2019-02-19 19:20] VITALS: BP 140/79
[2019-02-19] MEDS: ATORVASTATIN CALCIUM 20 MG TABLET PO SCH (21:10)
[2019-02-19 23:12] VITALS: BP 141/76
[2019-02-20 03:39] VITALS: BP 161/81
[2019-02-20 04:55] LABS: BASO % 0 % (0-3); EOS # 0.1 x10^3/uL (0.0-0.7); EOS % 1 % (0-3); HEMATOCRIT 26.7 % (39.0-53.0); HEMOGLOBIN 9.2 g/dL (13.0-17.5); LYMPH # 0.5 x10^3/uL (1.0-4.8); LYMPH % 4 % (24-48); MEAN CORPUSCULAR HEMOGLOBIN 33 pg (25-35); MEAN CORPUSCULAR HGB CONC 35 g/dL (31-37); MEAN CORPUSCULAR VOLUME 95 fL (79-100); MONO # 1.1 x10^3/uL (0.0-1.1); MONO % 10 % (0-9); NEUT # 9.2 x10^3/uL (1.8-7.7); NEUT % 84 % (31-73); PLATELET COUNT 185 x10^3/uL (140-400); RED BLOOD COUNT 2.81 x10^6/uL (4.30-5.70); RED CELL DISTRIBUTION WIDTH 12.7 % (11.5-14.5)
[2019-02-20] MEDS: AMINO AC 3%/ELECTROLYTE/GLYCER 1,000 ML IV SCH ×3 (05:04→21:29)
[2019-02-20 05:20] LABS: ALBUMIN 1.9 g/dL (3.4-5.0); ALBUMIN/GLOBULIN RATIO 0.4 (1.0-1.7); CALCIUM 8.8 mg/dL (8.5-10.1); CREATININE 4.3 mg/dL (0.7-1.3); GFR 14.6; POTASSIUM 4.5 mmol/L (3.5-5.1); TOTAL BILIRUBIN 0.7 mg/dL (0.2-1.0); TOTAL PROTEIN 6.3 g/dL (6.4-8.2)
[2019-02-20 07:51] VITALS: BP 147/80
[2019-02-20] MEDS: ASPIRIN CHEWABLE 81 MG TABLET. PO SCH (08:36)
[2019-02-20] MEDS: LACTOBACILLUS RHAMNOSUS GG 1 CAPSULE. PO SCH ×2 (08:36→21:04)
[2019-02-20] MEDS: INSULIN LISPRO 300 UNITS/3 ML INSULN.PEN. SQ SCH ×4 (08:43→21:15)
--- NOTE | 2019-02-20 09:57 | RAD ---
MRI Brain without contrast History: Dysphagia Technique: Multiplanar, multisequential noncontrast MR imaging was performed of the brain. Comparison: None Findings: There is mild motion. There is no evidence of recent infarct or cytotoxic edema. The ventricles, sulci, and cisterns are within normal limits in size and configuration. There is no significant midline shift, intraaxial mass effect, or focal abnormal extra-axial fluid collection. There is minimal T2 and FLAIR hyperintense signal near the bilateral frontal horns, also small focus right frontal deep white matter. Left vertebral artery flow-void is hypoplastic. The mastoid air cells are aerated. The cerebellar tonsils are normal in location. There is no significant abnormality of the pineal gland or pituitary gland. There is mild bilateral ethmoid air cell mucosal thickening. There is preserved marrow signal of the clivus. Impression: 1. There is minimal T2 and FLAIR hyperintense signal of the frontal horns and right frontal deep white matter, nonspecific findings likely nonspecific gliosis, degree of which can be seen in asymptomatic individuals. Findings could be due to sequela of chronic microvascular ischemic disease. Otherwise no other significant intracranial abnormality is identified. Electronically signed by: Jose Bower MD (02/20/2019 9:54 AM) [id number]
[2019-02-20 11:20] VITALS: BP 136/75
--- NOTE | 2019-02-20 11:22 | PDOC ---
Infectious Disease Note Subjective Subjective pt is feeling better, passed swallow eval ROS ROS no n/v/d/ Vital Sign Vital Signs Vital Signs Date Time Temp Pulse Resp B/P (MAP) Pulse Ox O2 Delivery O2 Flow Rate FiO2 02/20/19 11:20 97.3 84 18 136/75 (95) 96 Nasal Cannula 2.0 97.3 Physical Exam PHYSICAL EXAM GENERAL: Up in the chair, HEENT: Pupils equally round. Oral cavity dry, black tongue NECK: Supple. LUNGS: Improved aeration, nonlabored. HEART: S1 and S2. ABDOMEN: Nondistended, soft, no guarding. Bowel sounds present. GENITOURINARY: Indwelling Garcia in place. EXTREMITIES: No gross edema or cyanosis. SKIN: Warm to touch without signs of rash. NEUROLOGIC: Alert and oriented x 3 RIJ/HDC (8-6) without signs of any complications. Labs Lab Laboratory Tests Test 02/19/19 13:55 02/19/19 16:25 02/19/19 17:07 02/19/19 19:46 Glucose (Fingerstick) 174 mg/dL (70-99) 245 mg/dL (70-99) 262 mg/dL (70-99) White Blood Count 14.2 x10^3/uL (4.0-11.0) Red Blood Count 3.00 x10^6/uL (4.30-5.70) Hemoglobin 9.7 g/dL (13.0-17.5) Hematocrit 28.5 % (39.0-53.0) Mean Corpuscular Volume 95 fL (79-100) Mean Corpuscular Hemoglobin 32 pg (25-35) Mean Corpuscular Hemoglobin Concent 34 g/dL (31-37) Red Cell Distribution Width 12.6 % (11.5-14.5) Platelet Count 170 x10^3/uL (140-400) Neutrophils (%) (Auto) 88 % (31-73) Lymphocytes (%) (Auto) 3 % (24-48) Monocytes (%) (Auto) 8 % (0-9) Eosinophils (%) (Auto) 1 % (0-3) Basophils (%) (Auto) 1 % (0-3) Neutrophils # (Auto) 12.6 x10^3/uL (1.8-7.7) Lymphocytes # (Auto) 0.4 x10^3/uL (1.0-4.8) Monocytes # (Auto) 1.1 x10^3/uL (0.0-1.1) Eosinophils # (Auto) 0.1 x10^3/uL (0.0-0.7) Basophils # (Auto) 0.1 x10^3/uL (0.0-0.2) Segmented Neutrophils % 90 % (35-66) Lymphocytes % 2 % (24-48) Monocytes % 7 % (0-10) Eosinophils % 1 % (0-5) Toxic Granulation Slight Platelet Estimate Adequate (ADEQUATE) Sodium Level 137 mmol/L (136-145) Potassium Level 4.3 mmol/L (3.5-5.1) Chloride Level 98 mmol/L (98-107) Carbon Dioxide Level 24 mmol/L (21-32) Anion Gap 15 (6-14) Blood Urea Nitrogen 23 mg/dL (8-26) Creatinine 3.1 mg/dL (0.7-1.3) Estimated GFR (Cockcroft-Gault) 21.3 Glucose Level 251 mg/dL (70-99) Calcium Level 8.9 mg/dL (8.5-10.1) Test 02/20/19 03:55 02/20/19 07:20 White Blood Count 11.0 x10^3/uL (4.0-11.0) Red Blood Count 2.81 x10^6/uL (4.30-5.70) Hemoglobin 9.2 g/dL (13.0-17.5) Hematocrit 26.7 % (39.0-53.0) Mean Corpuscular Volume 95 fL (79-100) Mean Corpuscular Hemoglobin 33 pg (25-35) Mean Corpuscular Hemoglobin Concent 35 g/dL (31-37) Red Cell Distribution Width 12.7 % (11.5-14.5) Platelet Count 185 x10^3/uL (140-400) Neutrophils (%) (Auto) 84 % (31-73) Lymphocytes (%) (Auto) 4 % (24-48) Monocytes (%) (Auto) 10 % (0-9) Eosinophils (%) (Auto) 1 % (0-3) Basophils (%) (Auto) 0 % (0-3) Neutrophils # (Auto) 9.2 x10^3/uL (1.8-7.7) Lymphocytes # (Auto) 0.5 x10^3/uL (1.0-4.8) Monocytes # (Auto) 1.1 x10^3/uL (0.0-1.1) Eosinophils # (Auto) 0.1 x10^3/uL (0.0-0.7) Basophils # (Auto) 0.0 x10^3/uL (0.0-0.2) Sodium Level 135 mmol/L (136-145) Potassium Level 4.5 mmol/L (3.5-5.1) Chloride Level 96 mmol/L (98-107) Carbon Dioxide Level 27 mmol/L (21-32) Anion Gap 12 (6-14) Blood Urea Nitrogen 37 mg/dL (8-26) Creatinine 4.3 mg/dL (0.7-1.3) Estimated GFR (Cockcroft-Gault) 14.6 BUN/Creatinine Ratio 9 (6-20) Glucose Level 302 mg/dL (70-99) Calcium Level 8.8 mg/dL (8.5-10.1) Total Bilirubin 0.7 mg/dL (0.2-1.0) Aspartate Amino Transf (AST/SGOT) 16 U/L (15-37) Alanine Aminotransferase (ALT/SGPT) 21 U/L (16-63) Alkaline Phosphatase 161 U/L (46-116) Total Protein 6.3 g/dL (6.4-8.2) Albumin 1.9 g/dL (3.4-5.0) Albumin/Globulin Ratio 0.4 (1.0-1.7) Glucose (Fingerstick) 305 mg/dL (70-99) Micro Microbiology 02/12/19 Throat Culture - Final, Complete 02/12/19 - Final, Complete 02/12/19 Blood Culture - Final, Complete NO GROWTH AFTER 5 DAYS 02/11/19 Urine Culture - Final, Complete 02/11/19 Urine Culture Result 1 (SABINE) - Final, Complete Objective Assessment Aspiration - pharyngitis is better - cults neg Dysphagia, failed swallow study - NPO ? etilogy Fever - Group A rapid neg. Leukocytosis - better Acute encephalopathy - improved SARAH requiring HD DKA Seizure Plan Plan of Care off antibiotics Cultures neg Monitor labs PT/OT d/c garcia Clinically improving - looks well D/w family LUCRETIA XIONG MD Feb 20, 2019 11:22
--- NOTE | 2019-02-20 11:35 | RAD ---
Conversion of a right internal jugular temporary dialysis catheter to tunneled catheter 02/18/2019 3:05 PM Indication: Need for longer term dialysis access Discussion: The risks and benefits of the procedure were discussed the patient. Informed consent was obtained. Timeout procedure was performed. The right neck and chest prepped and draped using sterile barrier technique. All elements of maximal sterile barrier technique including the use of a cap, mask, sterile gown, sterile gloves, large sterile sheet, appropriate hand hygiene, and 2% chlorhexidine for cutaneous antisepsis (or acceptable alternative antiseptic per current guidelines) were followed for this procedure. Fluoroscopic evaluation demonstrates the pre-existing catheter to be in the appropriate position. A guidewire was advanced through the pre-existing catheter, into the IVC. A tunneled dialysis catheter was advanced from a small dermatotomy several inches inferior to the right clavicle to the access site. The pre-existing catheter was removed over a wire. A peel-away sheath was placed. The wire was removed and the new catheter was advanced through the peel-away sheath such that its catheter tip was at the mid right atrium with the patient supine. The new catheter was found to flush and aspirate normally. The catheter was secured in place. Sterile dressings were applied. Total fluoroscopy time: 1.6 minutes Dose area product: 4 Gycmn2 The procedure was performed under conscious sedation including continuous cardiopulmonary monitoring via a dedicated sedation nurse. [id number] sedation time: 15 minutes Impression: Conversion of a temporary dialysis catheter to a tunneled dialysis catheter as described
--- NOTE | 2019-02-20 11:45 | PDOC ---
[facility] [facility] PROGRESS NOTE Chief Complaint Chief Complaint Unsteady Gait Acute DKA Altered mental status Seizure SARAH Hyperkalemia T2DM Leukocytosis Lactic acidosis Dysphagia History of Present Illness History of Present Illness 02/20/19 Pt seen/examined at bedside Pt returned from MRI of head, await results Pt has [place] to bsd Previous Days Notes per Dr. Howard 02/18/19: renal dose to po augmentin Off azithromycin, cultures negative, including group A strep continue to adjust insulin as needed 02/14/19 Pt seen and examined in ICU [place] to BSD Pt sitting up in chair and communicative Anion gap 17 (14, 17 today) DW RN DW family 02/13/19 Pt seen and examined in ICU Venti mask at 50% O2 Pt sitting up in bed marked improvement Anion gap trending down ( 02/17 OP HD WILL HAVE IR CONVERT TEMP TO TUNNELED HD CATHETER Vitals/I&O Vitals/I&O: Vital Signs Date Time Temp Pulse Resp B/P (MAP) Pulse Ox O2 Delivery O2 Flow Rate FiO2 02/20/19 11:20 97.3 84 18 136/75 (95) 96 Nasal Cannula 2.0 97.3 I & O 02/19/19 02/19/19 02/20/19 15:00 23:00 07:00 Intake Total 0 ml 230 ml 220 ml Output Total 625 ml 250 ml Balance 0 ml -395 ml -30 ml Physical Exam General: Alert, Oriented X3, Cooperative, No acute distress Heart: Regular rate, Normal S1, Other (distant heart tones) Lungs: Crackles Abdomen: Normal bowel sounds, Soft, No tenderness Extremities: No clubbing, No edema, Normal pulses Skin: No breakdown, No significant lesion Labs Labs: Laboratory Tests Test 02/19/19 13:55 02/19/19 16:25 02/19/19 17:07 02/19/19 19:46 Glucose (Fingerstick) 174 mg/dL (70-99) 245 mg/dL (70-99) 262 mg/dL (70-99) White Blood Count 14.2 x10^3/uL (4.0-11.0) Red Blood Count 3.00 x10^6/uL (4.30-5.70) Hemoglobin 9.7 g/dL (13.0-17.5) Hematocrit 28.5 % (39.0-53.0) Mean Corpuscular Volume 95 fL (79-100) Mean Corpuscular Hemoglobin 32 pg (25-35) Mean Corpuscular Hemoglobin Concent 34 g/dL (31-37) Red Cell Distribution Width 12.6 % (11.5-14.5) Platelet Count 170 x10^3/uL (140-400) Neutrophils (%) (Auto) 88 % (31-73) Lymphocytes (%) (Auto) 3 % (24-48) Monocytes (%) (Auto) 8 % (0-9) Eosinophils (%) (Auto) 1 % (0-3) Basophils (%) (Auto) 1 % (0-3) Neutrophils # (Auto) 12.6 x10^3/uL (1.8-7.7) Lymphocytes # (Auto) 0.4 x10^3/uL (1.0-4.8) Monocytes # (Auto) 1.1 x10^3/uL (0.0-1.1) Eosinophils # (Auto) 0.1 x10^3/uL (0.0-0.7) Basophils # (Auto) 0.1 x10^3/uL (0.0-0.2) Segmented Neutrophils % 90 % (35-66) Lymphocytes % 2 % (24-48) Monocytes % 7 % (0-10) Eosinophils % 1 % (0-5) Toxic Granulation Slight Platelet Estimate Adequate (ADEQUATE) Sodium Level 137 mmol/L (136-145) Potassium Level 4.3 mmol/L (3.5-5.1) Chloride Level 98 mmol/L (98-107) Carbon Dioxide Level 24 mmol/L (21-32) Anion Gap 15 (6-14) Blood Urea Nitrogen 23 mg/dL (8-26) Creatinine 3.1 mg/dL (0.7-1.3) Estimated GFR (Cockcroft-Gault) 21.3 Glucose Level 251 mg/dL (70-99) Calcium Level 8.9 mg/dL (8.5-10.1) Test 02/20/19 03:55 02/20/19 07:20 White Blood Count 11.0 x10^3/uL (4.0-11.0) Red Blood Count 2.81 x10^6/uL (4.30-5.70) Hemoglobin 9.2 g/dL (13.0-17.5) Hematocrit 26.7 % (39.0-53.0) Mean Corpuscular Volume 95 fL (79-100) Mean Corpuscular Hemoglobin 33 pg (25-35) Mean Corpuscular Hemoglobin Concent 35 g/dL (31-37) Red Cell Distribution Width 12.7 % (11.5-14.5) Platelet Count 185 x10^3/uL (140-400) Neutrophils (%) (Auto) 84 % (31-73) Lymphocytes (%) (Auto) 4 % (24-48) Monocytes (%) (Auto) 10 % (0-9) Eosinophils (%) (Auto) 1 % (0-3) Basophils (%) (Auto) 0 % (0-3) Neutrophils # (Auto) 9.2 x10^3/uL (1.8-7.7) Lymphocytes # (Auto) 0.5 x10^3/uL (1.0-4.8) Monocytes # (Auto) 1.1 x10^3/uL (0.0-1.1) Eosinophils # (Auto) 0.1 x10^3/uL (0.0-0.7) Basophils # (Auto) 0.0 x10^3/uL (0.0-0.2) Sodium Level 135 mmol/L (136-145) Potassium Level 4.5 mmol/L (3.5-5.1) Chloride Level 96 mmol/L (98-107) Carbon Dioxide Level 27 mmol/L (21-32) Anion Gap 12 (6-14) Blood Urea Nitrogen 37 mg/dL (8-26) Creatinine 4.3 mg/dL (0.7-1.3) Estimated GFR (Cockcroft-Gault) 14.6 BUN/Creatinine Ratio 9 (6-20) Glucose Level 302 mg/dL (70-99) Calcium Level 8.8 mg/dL (8.5-10.1) Total Bilirubin 0.7 mg/dL (0.2-1.0) Aspartate Amino Transf (AST/SGOT) 16 U/L (15-37) Alanine Aminotransferase (ALT/SGPT) 21 U/L (16-63) Alkaline Phosphatase 161 U/L (46-116) Total Protein 6.3 g/dL (6.4-8.2) Albumin 1.9 g/dL (3.4-5.0) Albumin/Globulin Ratio 0.4 (1.0-1.7) Glucose (Fingerstick) 305 mg/dL (70-99) Review of Systems Review of Systems: No CO pain No confusion Assessment and Plan Assessmemt and Plan Problems Medical Problems: (1) DKA (diabetic ketoacidoses) Status: Acute (2) Elevated troponin Status: Acute (3) Renal failure Status: Acute Assessment Unsteady Gait Acute DKA Altered mental status Seizure SARAH Hyperkalemia T2DM Leukocytosis Lactic acidosis Dysphagia Plan O2 per NC Await MRI results Home meds PT/OT DVT prophylaxis Full code Await chair time for renal failure Comment Review of Relevant I have reviewed the following items mindy (where applicable) has been applied. Medications: Current Medications Medications (Trade) Dose Ordered Sig/Ismael Route PRN Reason Start Time Stop Time Status Last Admin Dose Admin Barium Sulfate (Varibar Thin Liquid Apple) 148 gm 1X ONCE PO 02/19/19 14:15 02/19/19 14:16 DC 02/19/19 14:39 Insulin Human Lispro (HumaLOG) 0-5 UNITS QIDACHS SQ 02/19/19 16:30 02/20/19 08:43 MONIQUE SIERRA III DO Feb 20, 2019 11:45
--- NOTE | 2019-02-20 12:16 | PDOC ---
Renal-Progress Notes Subjective Notes Notes NO NEW COMPLAINTS History of Present Illness Hx of present illness STABLE Vitals Vitals Vital Signs Date Time Temp Pulse Resp B/P (MAP) Pulse Ox O2 Delivery O2 Flow Rate FiO2 02/20/19 11:20 97.3 84 18 136/75 (95) 96 Nasal Cannula 2.0 97.3 Weight Weight [ ] I.O. Intake and Output Intake and Output 02/20/19 07:00 Intake Total 450 ml Output Total 875 ml Balance -425 ml Intake Oral 450 ml Output Urine Total 875 ml Labs Labs Laboratory Tests Test 02/19/19 13:55 02/19/19 16:25 02/19/19 17:07 02/19/19 19:46 Glucose (Fingerstick) 174 mg/dL (70-99) 245 mg/dL (70-99) 262 mg/dL (70-99) White Blood Count 14.2 x10^3/uL (4.0-11.0) Red Blood Count 3.00 x10^6/uL (4.30-5.70) Hemoglobin 9.7 g/dL (13.0-17.5) Hematocrit 28.5 % (39.0-53.0) Mean Corpuscular Volume 95 fL (79-100) Mean Corpuscular Hemoglobin 32 pg (25-35) Mean Corpuscular Hemoglobin Concent 34 g/dL (31-37) Red Cell Distribution Width 12.6 % (11.5-14.5) Platelet Count 170 x10^3/uL (140-400) Neutrophils (%) (Auto) 88 % (31-73) Lymphocytes (%) (Auto) 3 % (24-48) Monocytes (%) (Auto) 8 % (0-9) Eosinophils (%) (Auto) 1 % (0-3) Basophils (%) (Auto) 1 % (0-3) Neutrophils # (Auto) 12.6 x10^3/uL (1.8-7.7) Lymphocytes # (Auto) 0.4 x10^3/uL (1.0-4.8) Monocytes # (Auto) 1.1 x10^3/uL (0.0-1.1) Eosinophils # (Auto) 0.1 x10^3/uL (0.0-0.7) Basophils # (Auto) 0.1 x10^3/uL (0.0-0.2) Segmented Neutrophils % 90 % (35-66) Lymphocytes % 2 % (24-48) Monocytes % 7 % (0-10) Eosinophils % 1 % (0-5) Toxic Granulation Slight Platelet Estimate Adequate (ADEQUATE) Sodium Level 137 mmol/L (136-145) Potassium Level 4.3 mmol/L (3.5-5.1) Chloride Level 98 mmol/L (98-107) Carbon Dioxide Level 24 mmol/L (21-32) Anion Gap 15 (6-14) Blood Urea Nitrogen 23 mg/dL (8-26) Creatinine 3.1 mg/dL (0.7-1.3) Estimated GFR (Cockcroft-Gault) 21.3 Glucose Level 251 mg/dL (70-99) Calcium Level 8.9 mg/dL (8.5-10.1) Test 02/20/19 03:55 02/20/19 07:20 02/20/19 11:51 White Blood Count 11.0 x10^3/uL (4.0-11.0) Red Blood Count 2.81 x10^6/uL (4.30-5.70) Hemoglobin 9.2 g/dL (13.0-17.5) Hematocrit 26.7 % (39.0-53.0) Mean Corpuscular Volume 95 fL (79-100) Mean Corpuscular Hemoglobin 33 pg (25-35) Mean Corpuscular Hemoglobin Concent 35 g/dL (31-37) Red Cell Distribution Width 12.7 % (11.5-14.5) Platelet Count 185 x10^3/uL (140-400) Neutrophils (%) (Auto) 84 % (31-73) Lymphocytes (%) (Auto) 4 % (24-48) Monocytes (%) (Auto) 10 % (0-9) Eosinophils (%) (Auto) 1 % (0-3) Basophils (%) (Auto) 0 % (0-3) Neutrophils # (Auto) 9.2 x10^3/uL (1.8-7.7) Lymphocytes # (Auto) 0.5 x10^3/uL (1.0-4.8) Monocytes # (Auto) 1.1 x10^3/uL (0.0-1.1) Eosinophils # (Auto) 0.1 x10^3/uL (0.0-0.7) Basophils # (Auto) 0.0 x10^3/uL (0.0-0.2) Sodium Level 135 mmol/L (136-145) Potassium Level 4.5 mmol/L (3.5-5.1) Chloride Level 96 mmol/L (98-107) Carbon Dioxide Level 27 mmol/L (21-32) Anion Gap 12 (6-14) Blood Urea Nitrogen 37 mg/dL (8-26) Creatinine 4.3 mg/dL (0.7-1.3) Estimated GFR (Cockcroft-Gault) 14.6 BUN/Creatinine Ratio 9 (6-20) Glucose Level 302 mg/dL (70-99) Calcium Level 8.8 mg/dL (8.5-10.1) Total Bilirubin 0.7 mg/dL (0.2-1.0) Aspartate Amino Transf (AST/SGOT) 16 U/L (15-37) Alanine Aminotransferase (ALT/SGPT) 21 U/L (16-63) Alkaline Phosphatase 161 U/L (46-116) Total Protein 6.3 g/dL (6.4-8.2) Albumin 1.9 g/dL (3.4-5.0) Albumin/Globulin Ratio 0.4 (1.0-1.7) Glucose (Fingerstick) 305 mg/dL (70-99) 314 mg/dL (70-99) Micro Micro Microbiology 02/12/19 Throat Culture - Final, Complete 02/12/19 - Final, Complete 02/12/19 Blood Culture - Final, Complete NO GROWTH AFTER 5 DAYS 02/11/19 Urine Culture - Final, Complete 02/11/19 Urine Culture Result 1 (SABINE) - Final, Complete Review of Systems Constitutional: yes: alert, oriented Ears/Nose/Throat: Yes: no symptom reported Eyes: Yes: no symptom reported Pulmonary: Yes no symptom reported Cardiovascular: Yes no symptom reported Gastrointestional: Yes: no symptom reported Genitourinary: Yes: no symptom reported Musculoskeletal: Yes: no symptom reported Skin: Yes no symptom reported Psychiatric/Neurological: Yes: no symptom reported Endocrine: Yes: no symptom reported Physical Exam General Appearance: no apparent distress Skin: warm Respiratory: bilateral CTA Heart: S1S2, RRR Abdomen: soft, bowel sounds present Genitourinary: bladder flat Extremities: pulses present Neurology: alert, oriented Assessment Assessment IMP SARAH-NOT ENOUGH CLEARANCE-POSSIBLE ESRD SINCE WE HAVE NO BASELINE ANEMIA HTN DM II DKA-RESOLED S/P TUNNELED HD 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
[2019-02-20 15:46] VITALS: BP 138/74
--- NOTE | 2019-02-20 16:56 | PDOC ---
PROGRESS NOTES Assessment Assessment Metabolic encephalopathy. Seizure, provoked. Hyperglycemia, glucose level 737 on 02/11/19. Diabetic ketoacidosis. DM, poorly controlled. Leukocytosis. Hyperkalemia. Hypocalcemia. Rhabdomyolysis. Acute renal failure. HTN. HLD. Dysphagia, passed swallow test reportedly. No evidence of acute CVA this time. RECOMMENDATIONS/PLAN: Treat medical diseases. Continue ASA daily. Continue Lipitor HS. Control hyperglycemia. Discussed with his mother again at bedside on 02/20/19. 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 Full 14-point review of systems is negative. MEDICATIONS: Refer to [facility] PHYSICAL EXAMINATION: General appearance in no acute distress. HEENT: Normocephalic and nontraumatic. Eyes, nose, ears, and throat are unremarkable. Hearing decrease. Neck is supple. No lymphadenopathy. No bruits are heard over the carotid artery. No Crepitus. Cardiovascular: S1, S2, regular rate and rhythm. Pulmonary: Clear to auscultation bilaterally. Abdomen: Bowel sounds are positive. Abdomen is soft, nontender, and nondistended. Extremities: No rash, lesions, or edema. No restriction of range of motion NEUROLOGICAL EXAMINATION: Alert. Oriented to time, place and person. PERRL. EOMI. CN: no focal findings. Muscle tone: within normal. Muscle strength: 4+ DTR: 1-2 Plantar reflex: Flexor response bilaterally Gait: Able to walk in room. Sensory exam: no abnormal findings. No cerebellar signs elicited. F-T-N test fine. Objective Objective Vital Signs Date Time Temp Pulse Resp B/P (MAP) Pulse Ox O2 Delivery O2 Flow Rate FiO2 02/20/19 15:46 97.4 87 18 138/74 (95) 95 Nasal Cannula 2.0 97.4 Intake and Output 02/20/19 07:00 Intake Total 450 ml Output Total 875 ml Balance -425 ml Intake Oral 450 ml Output Urine Total 875 ml Vitals Signs Vitals VS - Last 72 Hours, by Label Date Time Temp Pulse Resp B/P (MAP) Pulse Ox O2 Delivery O2 Flow Rate FiO2 02/20/19 15:46 97.4 87 18 138/74 (95) 95 Nasal Cannula 2.0 97.4 02/20/19 11:20 97.3 84 18 136/75 (95) 96 Nasal Cannula 2.0 97.3 02/20/19 08:00 Nasal Cannula 2.0 02/20/19 07:51 97.8 87 20 147/80 (102) 95 Nasal Cannula 2.0 97.8 02/20/19 03:39 98.1 88 18 161/81 (107) 97 Nasal Cannula 2.0 98.1 02/19/19 23:12 98.3 96 18 141/76 (97) 95 Nasal Cannula 2.0 98.3 02/19/19 20:00 Nasal Cannula 2.0 02/19/19 19:20 97.3 96 18 140/79 (99) 96 Nasal Cannula 2.0 97.3 02/19/19 17:23 95 Nasal Cannula 2.0 02/19/19 16:44 95 Nasal Cannula 2.0 02/19/19 15:20 99.2 100 20 137/76 (96) 96 Nasal Cannula 2.0 99.2 02/19/19 08:00 Nasal Cannula 2.0 02/19/19 07:35 97.7 89 20 161/79 (106) 95 Nasal Cannula 2.0 97.7 Laboratory Laboratory Laboratory Tests Test 02/19/19 17:07 02/19/19 19:46 02/20/19 03:55 02/20/19 07:20 Glucose (Fingerstick) 245 mg/dL (70-99) 262 mg/dL (70-99) 305 mg/dL (70-99) White Blood Count 11.0 x10^3/uL (4.0-11.0) Red Blood Count 2.81 x10^6/uL (4.30-5.70) Hemoglobin 9.2 g/dL (13.0-17.5) Hematocrit 26.7 % (39.0-53.0) Mean Corpuscular Volume 95 fL (79-100) Mean Corpuscular Hemoglobin 33 pg (25-35) Mean Corpuscular Hemoglobin Concent 35 g/dL (31-37) Red Cell Distribution Width 12.7 % (11.5-14.5) Platelet Count 185 x10^3/uL (140-400) Neutrophils (%) (Auto) 84 % (31-73) Lymphocytes (%) (Auto) 4 % (24-48) Monocytes (%) (Auto) 10 % (0-9) Eosinophils (%) (Auto) 1 % (0-3) Basophils (%) (Auto) 0 % (0-3) Neutrophils # (Auto) 9.2 x10^3/uL (1.8-7.7) Lymphocytes # (Auto) 0.5 x10^3/uL (1.0-4.8) Monocytes # (Auto) 1.1 x10^3/uL (0.0-1.1) Eosinophils # (Auto) 0.1 x10^3/uL (0.0-0.7) Basophils # (Auto) 0.0 x10^3/uL (0.0-0.2) Sodium Level 135 mmol/L (136-145) Potassium Level 4.5 mmol/L (3.5-5.1) Chloride Level 96 mmol/L (98-107) Carbon Dioxide Level 27 mmol/L (21-32) Anion Gap 12 (6-14) Blood Urea Nitrogen 37 mg/dL (8-26) Creatinine 4.3 mg/dL (0.7-1.3) Estimated GFR (Cockcroft-Gault) 14.6 BUN/Creatinine Ratio 9 (6-20) Glucose Level 302 mg/dL (70-99) Calcium Level 8.8 mg/dL (8.5-10.1) Total Bilirubin 0.7 mg/dL (0.2-1.0) Aspartate Amino Transf (AST/SGOT) 16 U/L (15-37) Alanine Aminotransferase (ALT/SGPT) 21 U/L (16-63) Alkaline Phosphatase 161 U/L (46-116) Total Protein 6.3 g/dL (6.4-8.2) Albumin 1.9 g/dL (3.4-5.0) Albumin/Globulin Ratio 0.4 (1.0-1.7) Test 02/20/19 11:51 Glucose (Fingerstick) 314 mg/dL (70-99) Microbiology 02/12/19 Throat Culture - Final, Complete 02/12/19 - Final, Complete 02/12/19 Blood Culture - Final, Complete NO GROWTH AFTER 5 DAYS 02/11/19 Urine Culture - Final, Complete 02/11/19 Urine Culture Result 1 (SABINE) - Final, Complete Comment Review of Relevant I have reviewed the following items mindy (where applicable) has been applied. VINCENT CALIXTO MD Feb 20, 2019 16:56
[2019-02-20] MEDS: MORPHINE SULFATE 2 MG/ML VIAL. IV PRN (18:20)
[2019-02-20 19:42] VITALS: BP 156/81
[2019-02-20] MEDS: ATORVASTATIN CALCIUM 20 MG TABLET PO SCH (21:04)
[2019-02-20 23:15] VITALS: BP 101/74
[2019-02-21 03:26] VITALS: BP 148/70
[2019-02-21 04:45] LABS: BASO # 0.1 x10^3/uL (0.0-0.2); BASO % 1 % (0-3); EOS # 0.1 x10^3/uL (0.0-0.7); EOS % 1 % (0-3); HEMATOCRIT 26.5 % (39.0-53.0); HEMOGLOBIN 9.3 g/dL (13.0-17.5); LYMPH # 0.5 x10^3/uL (1.0-4.8); LYMPH % 5 % (24-48); MEAN CORPUSCULAR HEMOGLOBIN 33 pg (25-35); MEAN CORPUSCULAR HGB CONC 35 g/dL (31-37); MEAN CORPUSCULAR VOLUME 94 fL (79-100); MONO # 1.1 x10^3/uL (0.0-1.1); MONO % 11 % (0-9); NEUT # 8.2 x10^3/uL (1.8-7.7); NEUT % 82 % (31-73); PLATELET COUNT 229 x10^3/uL (140-400); RED BLOOD COUNT 2.82 x10^6/uL (4.30-5.70); RED CELL DISTRIBUTION WIDTH 12.5 % (11.5-14.5)
[2019-02-21 05:03] LABS: CALCIUM 9.5 mg/dL (8.5-10.1); CREATININE 5.6 mg/dL (0.7-1.3); GFR 10.8; POTASSIUM 4.8 mmol/L (3.5-5.1)
[2019-02-21 07:00] VITALS: BP 144/74
[2019-02-21] MEDS ORDERED: IV NORMAL SALINE 1000ML BAG 1,000 ML IV PRN ×2 (07:14)
[2019-02-21] MEDS ORDERED: DIALYSIS PATIENT. MC PRN (07:15)
[2019-02-21] MEDS ORDERED: ALBUMIN HUMAN 25% 200 ML IV PRN (07:15)
[2019-02-21] MEDS ORDERED: ACETAMINOPHEN 500 MG TABLET PO PRN (07:15)
[2019-02-21] MEDS ORDERED: 0.9 % SODIUM CHLORIDE 10 ML DISP.SYRIN. IV PRN ×2 (07:15)
[2019-02-21] MEDS ORDERED: diphenhydrAMINE 50 MG/ML VIAL IV PRN ×2 (07:15)
[2019-02-21] MEDS: LACTOBACILLUS RHAMNOSUS GG 1 CAPSULE. PO SCH ×2 (08:27→21:07)
[2019-02-21] MEDS: ASPIRIN CHEWABLE 81 MG TABLET. PO SCH (08:27)
[2019-02-21] MEDS: INSULIN LISPRO 300 UNITS/3 ML INSULN.PEN. SQ SCH ×4 (08:30→21:12)
--- NOTE | 2019-02-21 13:00 | PDOC ---
[facility] PROGRESS NOTE Chief Complaint Chief Complaint Unsteady Gait Acute DKA Altered mental status Seizure SARAH Hyperkalemia T2DM Leukocytosis Lactic acidosis Dysphagia History of Present Illness History of Present Illness 02/21/19 Pt seen/examined in HD MRI indicates no significant findings DW 02/20/19 Pt seen/examined at bedside Pt returned from MRI of head, await results Pt has [place] to bsd Previous Days Notes per Dr. Howard 02/18/19: renal dose to po augmentin Off azithromycin, cultures negative, including group A strep continue to adjust insulin as needed 02/14/19 Pt seen and examined in ICU [place] to BSD Pt sitting up in chair and communicative Anion gap 17 (14, 17 today) DW RN DW family 02/13/19 Pt seen and examined in ICU Venti mask at 50% O2 Pt sitting up in bed marked improvement Anion gap trending down ( 02/17 OP HD WILL HAVE IR CONVERT TEMP TO TUNNELED HD CATHETER Vitals/I&O Vitals/I&O: Vital Signs Date Time Temp Pulse Resp B/P (MAP) Pulse Ox O2 Delivery O2 Flow Rate FiO2 02/21/19 07:56 Nasal Cannula 2.0 02/21/19 07:00 98.4 84 20 144/74 (97) 95 98.4 I & O 02/20/19 02/20/19 02/21/19 14:59 22:59 06:59 Intake Total 220 ml 300 ml 50 ml Output Total 250 ml 350 ml Balance -30 ml 300 ml -300 ml Physical Exam General: Alert, Oriented X3, Cooperative, No acute distress Heart: Regular rate, Normal S1, Other (distant heart tones) Lungs: Crackles Abdomen: Normal bowel sounds, Soft, No tenderness Extremities: No clubbing, No edema, Normal pulses Skin: No breakdown, No significant lesion Labs Labs: Laboratory Tests Test 02/20/19 17:00 02/20/19 19:13 02/21/19 04:35 02/21/19 07:44 Glucose (Fingerstick) 302 mg/dL (70-99) 303 mg/dL (70-99) 351 mg/dL (70-99) White Blood Count 10.0 x10^3/uL (4.0-11.0) Red Blood Count 2.82 x10^6/uL (4.30-5.70) Hemoglobin 9.3 g/dL (13.0-17.5) Hematocrit 26.5 % (39.0-53.0) Mean Corpuscular Volume 94 fL (79-100) Mean Corpuscular Hemoglobin 33 pg (25-35) Mean Corpuscular Hemoglobin Concent 35 g/dL (31-37) Red Cell Distribution Width 12.5 % (11.5-14.5) Platelet Count 229 x10^3/uL (140-400) Neutrophils (%) (Auto) 82 % (31-73) Lymphocytes (%) (Auto) 5 % (24-48) Monocytes (%) (Auto) 11 % (0-9) Eosinophils (%) (Auto) 1 % (0-3) Basophils (%) (Auto) 1 % (0-3) Neutrophils # (Auto) 8.2 x10^3/uL (1.8-7.7) Lymphocytes # (Auto) 0.5 x10^3/uL (1.0-4.8) Monocytes # (Auto) 1.1 x10^3/uL (0.0-1.1) Eosinophils # (Auto) 0.1 x10^3/uL (0.0-0.7) Basophils # (Auto) 0.1 x10^3/uL (0.0-0.2) Sodium Level 134 mmol/L (136-145) Potassium Level 4.8 mmol/L (3.5-5.1) Chloride Level 97 mmol/L (98-107) Carbon Dioxide Level 26 mmol/L (21-32) Anion Gap 11 (6-14) Blood Urea Nitrogen 58 mg/dL (8-26) Creatinine 5.6 mg/dL (0.7-1.3) Estimated GFR (Cockcroft-Gault) 10.8 Glucose Level 335 mg/dL (70-99) Calcium Level 9.5 mg/dL (8.5-10.1) Review of Systems Review of Systems: CO being tired No confusion Assessment and Plan Assessmemt and Plan Problems Medical Problems: (1) DKA (diabetic ketoacidoses) Status: Acute (2) Elevated troponin Status: Acute (3) Renal failure Status: Acute Assessment Unsteady Gait Acute DKA Altered mental status Seizure SARAH Hyperkalemia T2DM Leukocytosis Lactic acidosis Dysphagia Plan DVT prophylaxis Home meds PT/OT Full code Appreciate subspecialist input Awaiting chair time for HD Comment Review of Relevant I have reviewed the following items mindy (where applicable) has been applied. MONIQUE SIERRA III DO Feb 21, 2019 13:00
--- NOTE | 2019-02-21 14:35 | PDOC ---
PROGRESS NOTES Assessment Assessment Metabolic encephalopathy. Seizure, provoked. Hyperglycemia, glucose level 737 on 02/11/19. Diabetic ketoacidosis. DM, poorly controlled. Leukocytosis. Hyperkalemia. Hypocalcemia. Rhabdomyolysis. Acute renal failure. HTN. HLD. Dysphagia, passed swallow test reportedly. No evidence of acute CVA this time. RECOMMENDATIONS/PLAN: Treat medical diseases. Continue ASA daily. Continue Lipitor HS. Dialysis. Control hyperglycemia. 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 Full 14-point review of systems is negative. MEDICATIONS: Refer to [facility] PHYSICAL EXAMINATION: General appearance in no acute distress. HEENT: Normocephalic and nontraumatic. Eyes, nose, ears, and throat are unremarkable. Hearing decrease. Neck is supple. No lymphadenopathy. No bruits are heard over the carotid artery. No Crepitus. Cardiovascular: S1, S2, regular rate and rhythm. Pulmonary: Clear to auscultation bilaterally. Abdomen: Bowel sounds are positive. Abdomen is soft, nontender, and nondistended. Extremities: No rash, lesions, or edema. No restriction of range of motion NEUROLOGICAL EXAMINATION: Alert. Oriented to time, place and person. PERRL. EOMI. CN: no focal findings. Muscle tone: within normal. Muscle strength: 4+ DTR: 1-2 Plantar reflex: Flexor response bilaterally Gait: Able to walk in room. Sensory exam: no abnormal findings. No cerebellar signs elicited. F-T-N test fine. Objective Objective Vital Signs Date Time Temp Pulse Resp B/P (MAP) Pulse Ox O2 Delivery O2 Flow Rate FiO2 02/21/19 07:56 Nasal Cannula 2.0 02/21/19 07:00 98.4 84 20 144/74 (97) 95 98.4 Intake and Output 02/21/19 07:00 Intake Total 570 ml Output Total 600 ml Balance -30 ml Intake Oral 570 ml Output Urine Total 600 ml Vitals Signs Vitals VS - Last 72 Hours, by Label Date Time Temp Pulse Resp B/P (MAP) Pulse Ox O2 Delivery O2 Flow Rate FiO2 02/21/19 07:56 Nasal Cannula 2.0 02/21/19 07:00 98.4 84 20 144/74 (97) 95 Nasal Cannula 2.0 98.4 02/21/19 03:26 98.2 86 18 148/70 (96) 94 Nasal Cannula 2.0 98.2 02/20/19 23:15 97.6 89 18 101/74 (83) 94 Nasal Cannula 2.0 97.6 02/20/19 22:59 95 Nasal Cannula 2.0 02/20/19 20:00 Nasal Cannula 2.0 02/20/19 19:42 98.1 85 18 156/81 (106) 95 Nasal Cannula 2.0 98.1 02/20/19 15:46 97.4 87 18 138/74 (95) 95 Nasal Cannula 2.0 97.4 02/20/19 11:20 97.3 84 18 136/75 (95) 96 Nasal Cannula 2.0 97.3 02/20/19 08:00 Nasal Cannula 2.0 02/20/19 07:51 97.8 87 20 147/80 (102) 95 Nasal Cannula 2.0 97.8 Laboratory Laboratory Laboratory Tests Test 02/20/19 17:00 02/20/19 19:13 02/21/19 04:35 02/21/19 07:44 Glucose (Fingerstick) 302 mg/dL (70-99) 303 mg/dL (70-99) 351 mg/dL (70-99) White Blood Count 10.0 x10^3/uL (4.0-11.0) Red Blood Count 2.82 x10^6/uL (4.30-5.70) Hemoglobin 9.3 g/dL (13.0-17.5) Hematocrit 26.5 % (39.0-53.0) Mean Corpuscular Volume 94 fL (79-100) Mean Corpuscular Hemoglobin 33 pg (25-35) Mean Corpuscular Hemoglobin Concent 35 g/dL (31-37) Red Cell Distribution Width 12.5 % (11.5-14.5) Platelet Count 229 x10^3/uL (140-400) Neutrophils (%) (Auto) 82 % (31-73) Lymphocytes (%) (Auto) 5 % (24-48) Monocytes (%) (Auto) 11 % (0-9) Eosinophils (%) (Auto) 1 % (0-3) Basophils (%) (Auto) 1 % (0-3) Neutrophils # (Auto) 8.2 x10^3/uL (1.8-7.7) Lymphocytes # (Auto) 0.5 x10^3/uL (1.0-4.8) Monocytes # (Auto) 1.1 x10^3/uL (0.0-1.1) Eosinophils # (Auto) 0.1 x10^3/uL (0.0-0.7) Basophils # (Auto) 0.1 x10^3/uL (0.0-0.2) Sodium Level 134 mmol/L (136-145) Potassium Level 4.8 mmol/L (3.5-5.1) Chloride Level 97 mmol/L (98-107) Carbon Dioxide Level 26 mmol/L (21-32) Anion Gap 11 (6-14) Blood Urea Nitrogen 58 mg/dL (8-26) Creatinine 5.6 mg/dL (0.7-1.3) Estimated GFR (Cockcroft-Gault) 10.8 Glucose Level 335 mg/dL (70-99) Calcium Level 9.5 mg/dL (8.5-10.1) Microbiology 02/12/19 Throat Culture - Final, Complete 02/12/19 - Final, Complete 02/12/19 Blood Culture - Final, Complete NO GROWTH AFTER 5 DAYS 02/11/19 Urine Culture - Final, Complete 02/11/19 Urine Culture Result 1 (SABINE) - Final, Complete Medication Medications Current Medications Acetaminophen (Tylenol) 500 mg 1X PRN PRN PO MILD PAIN / TEMP; Start 02/21/19 at 07:15; Stop 02/22/19 at 07:14 Albumin Human 200 ml @ 200 mls/hr 1X PRN PRN IV Hypotension; Start 02/21/19 at 07:15; Stop 02/21/19 at 13:14; Status DC Diphenhydramine HCl (Benadryl) 25 mg 1X PRN PRN IV ITCHING; Start 02/21/19 at 07:15; Stop 02/22/19 at 07:14 Diphenhydramine HCl (Benadryl) 25 mg 1X PRN PRN IV ITCHING; Start 02/21/19 at 07:15; Stop 02/22/19 at 07:14 Info (PHARMACY MONITORING -- do not chart) 1 each PRN DAILY PRN MC SEE COMMENTS; Start 02/21/19 at 07:15 Sodium Chloride 1,000 ml @ 400 mls/hr Q2H30M PRN IV PATENCY; Start 02/21/19 at 07:14; Stop 02/21/19 at 19:13 Sodium Chloride 1,000 ml @ 1,000 mls/hr Q1H PRN IV hypotension; Start 02/21/19 at 07:14; Stop 02/21/19 at 13:13; Status DC Sodium Chloride (Normal Saline Flush) 10 ml 1X PRN PRN IV AP catheter pack; Start 02/21/19 at 07:15; Stop 02/22/19 at 07:14 Sodium Chloride (Normal Saline Flush) 10 ml 1X PRN PRN IV ASSOCIATE FINANCIAL ANALYST catheter pack; Start 02/21/19 at 07:15; Stop 02/22/19 at 07:14 Comment Review of Relevant I have reviewed the following items mindy (where applicable) has been applied. VINCENT CALIXTO MD Feb 21, 2019 14:35
[2019-02-21 15:52] VITALS: BP 126/70
--- NOTE | 2019-02-21 16:28 | PDOC ---
Renal-Progress Notes Subjective Notes Notes NOTHING NEW History of Present Illness Hx of present illness STABLE Vitals Vitals Vital Signs Date Time Temp Pulse Resp B/P (MAP) Pulse Ox O2 Delivery O2 Flow Rate FiO2 02/21/19 15:52 99.0 97 18 126/70 (88) 97 Nasal Cannula 2.0 99.0 Weight Weight [ ] I.O. Intake and Output Intake and Output 02/21/19 06:59 Intake Total 570 ml Output Total 600 ml Balance -30 ml Intake Oral 570 ml Output Urine Total 600 ml Labs Labs Laboratory Tests Test 02/20/19 17:00 02/20/19 19:13 02/21/19 04:35 02/21/19 07:44 Glucose (Fingerstick) 302 mg/dL (70-99) 303 mg/dL (70-99) 351 mg/dL (70-99) White Blood Count 10.0 x10^3/uL (4.0-11.0) Red Blood Count 2.82 x10^6/uL (4.30-5.70) Hemoglobin 9.3 g/dL (13.0-17.5) Hematocrit 26.5 % (39.0-53.0) Mean Corpuscular Volume 94 fL (79-100) Mean Corpuscular Hemoglobin 33 pg (25-35) Mean Corpuscular Hemoglobin Concent 35 g/dL (31-37) Red Cell Distribution Width 12.5 % (11.5-14.5) Platelet Count 229 x10^3/uL (140-400) Neutrophils (%) (Auto) 82 % (31-73) Lymphocytes (%) (Auto) 5 % (24-48) Monocytes (%) (Auto) 11 % (0-9) Eosinophils (%) (Auto) 1 % (0-3) Basophils (%) (Auto) 1 % (0-3) Neutrophils # (Auto) 8.2 x10^3/uL (1.8-7.7) Lymphocytes # (Auto) 0.5 x10^3/uL (1.0-4.8) Monocytes # (Auto) 1.1 x10^3/uL (0.0-1.1) Eosinophils # (Auto) 0.1 x10^3/uL (0.0-0.7) Basophils # (Auto) 0.1 x10^3/uL (0.0-0.2) Sodium Level 134 mmol/L (136-145) Potassium Level 4.8 mmol/L (3.5-5.1) Chloride Level 97 mmol/L (98-107) Carbon Dioxide Level 26 mmol/L (21-32) Anion Gap 11 (6-14) Blood Urea Nitrogen 58 mg/dL (8-26) Creatinine 5.6 mg/dL (0.7-1.3) Estimated GFR (Cockcroft-Gault) 10.8 Glucose Level 335 mg/dL (70-99) Calcium Level 9.5 mg/dL (8.5-10.1) Micro Micro Microbiology 02/12/19 Throat Culture - Final, Complete 02/12/19 - Final, Complete 02/12/19 Blood Culture - Final, Complete NO GROWTH AFTER 5 DAYS 02/11/19 Urine Culture - Final, Complete 02/11/19 Urine Culture Result 1 (SABINE) - Final, Complete Review of Systems Constitutional: yes: alert, oriented Ears/Nose/Throat: Yes: no symptom reported Eyes: Yes: no symptom reported Pulmonary: Yes no symptom reported Cardiovascular: Yes no symptom reported Gastrointestional: Yes: no symptom reported Genitourinary: Yes: no symptom reported Musculoskeletal: Yes: no symptom reported Skin: Yes no symptom reported Psychiatric/Neurological: Yes: no symptom reported Endocrine: Yes: no symptom reported Physical Exam General Appearance: no apparent distress Skin: warm Respiratory: bilateral CTA Heart: S1S2, RRR Abdomen: soft, bowel sounds present Genitourinary: bladder flat Extremities: pulses present Neurology: alert, oriented Assessment Assessment IMP SARAH-NOT ENOUGH CLEARANCE-POSSIBLE ESRD SINCE WE HAVE NO BASELINE ANEMIA HTN DM II DKA-RESOLED S/P TUNNELED HD CATHETER PLAN HD TODAY UF TO DW CONT BRAD SW WILL NEED TO SET UP OP HD JONI COX MD Feb 21, 2019 16:28
[2019-02-21 19:10] VITALS: BP 128/73
[2019-02-21] MEDS: AMINO AC 3%/ELECTROLYTE/GLYCER 1,000 ML IV SCH (19:15)
[2019-02-21] MEDS: ATORVASTATIN CALCIUM 20 MG TABLET PO SCH (21:07)
[2019-02-21 23:10] VITALS: BP 129/71
[2019-02-22 03:10] VITALS: BP 127/69
[2019-02-22] MEDS: MORPHINE SULFATE 2 MG/ML VIAL. IV PRN (05:11)
[2019-02-22] MEDS: AMINO AC 3%/ELECTROLYTE/GLYCER 1,000 ML IV SCH (05:56)
[2019-02-22 07:47] VITALS: BP 137/75
[2019-02-22 09:19] LABS: BASO # 0.1 x10^3/uL (0.0-0.2); BASO % 1 % (0-3); EOS # 0.1 x10^3/uL (0.0-0.7); EOS % 1 % (0-3); HEMATOCRIT 25.9 % (39.0-53.0); LYMPH # 0.5 x10^3/uL (1.0-4.8); LYMPH % 5 % (24-48); MEAN CORPUSCULAR HEMOGLOBIN 33 pg (25-35); MEAN CORPUSCULAR HGB CONC 35 g/dL (31-37); MEAN CORPUSCULAR VOLUME 95 fL (79-100); MONO % 11 % (0-9); NEUT # 7.6 x10^3/uL (1.8-7.7); NEUT % 82 % (31-73); PLATELET COUNT 280 x10^3/uL (140-400); RED BLOOD COUNT 2.72 x10^6/uL (4.30-5.70); RED CELL DISTRIBUTION WIDTH 12.8 % (11.5-14.5); WHITE BLOOD COUNT 9.3 x10^3/uL (4.0-11.0)
[2019-02-22] MEDS: ASPIRIN CHEWABLE 81 MG TABLET. PO SCH (09:20)
[2019-02-22] MEDS: LACTOBACILLUS RHAMNOSUS GG 1 CAPSULE. PO SCH ×2 (09:20→21:08)
[2019-02-22] MEDS: INSULIN LISPRO 300 UNITS/3 ML INSULN.PEN. SQ SCH ×4 (09:22→21:00)
[2019-02-22 09:37] LABS: CALCIUM 8.9 mg/dL (8.5-10.1); CREATININE 4.2 mg/dL (0.7-1.3); POTASSIUM 4.8 mmol/L (3.5-5.1)
[2019-02-22 11:08] VITALS: BP 151/76
--- NOTE | 2019-02-22 13:22 | PDOC ---
[facility] PROGRESS NOTE Chief Complaint Chief Complaint Unsteady Gait Acute DKA Altered mental status Seizure SARAH Hyperkalemia T2DM Leukocytosis Lactic acidosis Dysphagia History of Present Illness History of Present Illness 02/22/19 Resting w/ NAD DW RN who said she is titrating off O2 02/21/19 Pt seen/examined in HD MRI indicates no significant findings DW 02/20/19 Pt seen/examined at bedside Pt returned from MRI of head, await results Pt has [place] to bsd Previous Days Notes per Dr. Howard 02/18/19: renal dose to po augmentin Off azithromycin, cultures negative, including group A strep continue to adjust insulin as needed 02/14/19 Pt seen and examined in ICU [place] to BSD Pt sitting up in chair and communicative Anion gap 17 (14, 17 today) CHUCKY RN DW family 02/13/19 Pt seen and examined in ICU Venti mask at 50% O2 Pt sitting up in bed marked improvement Anion gap trending down ( 02/17 OP HD WILL HAVE IR CONVERT TEMP TO TUNNELED HD CATHETER Vitals/I&O Vitals/I&O: Vital Signs Date Time Temp Pulse Resp B/P (MAP) Pulse Ox O2 Delivery O2 Flow Rate FiO2 02/22/19 11:08 98.4 101 18 151/76 (101) 91 Room Air 98.4 02/22/19 08:00 2.0 I & O 02/21/19 02/21/19 02/22/19 15:00 23:00 07:00 Intake Total 180 ml 1000 ml 0 ml Output Total 400 ml 400 ml 100 ml Balance -220 ml 600 ml -100 ml Physical Exam General: Alert, Oriented X3, Cooperative, No acute distress Heart: Regular rate, Normal S1, Other (distant heart tones) Lungs: Crackles Abdomen: Normal bowel sounds, Soft, No tenderness Extremities: No clubbing, No edema, Normal pulses Skin: No breakdown, No significant lesion Labs Labs: Laboratory Tests Test 02/21/19 17:39 02/21/19 20:56 02/22/19 07:27 02/22/19 08:45 Glucose (Fingerstick) 220 mg/dL (70-99) 284 mg/dL (70-99) 284 mg/dL (70-99) White Blood Count 9.3 x10^3/uL (4.0-11.0) Red Blood Count 2.72 x10^6/uL (4.30-5.70) Hemoglobin 9.0 g/dL (13.0-17.5) Hematocrit 25.9 % (39.0-53.0) Mean Corpuscular Volume 95 fL (79-100) Mean Corpuscular Hemoglobin 33 pg (25-35) Mean Corpuscular Hemoglobin Concent 35 g/dL (31-37) Red Cell Distribution Width 12.8 % (11.5-14.5) Platelet Count 280 x10^3/uL (140-400) Neutrophils (%) (Auto) 82 % (31-73) Lymphocytes (%) (Auto) 5 % (24-48) Monocytes (%) (Auto) 11 % (0-9) Eosinophils (%) (Auto) 1 % (0-3) Basophils (%) (Auto) 1 % (0-3) Neutrophils # (Auto) 7.6 x10^3/uL (1.8-7.7) Lymphocytes # (Auto) 0.5 x10^3/uL (1.0-4.8) Monocytes # (Auto) 1.0 x10^3/uL (0.0-1.1) Eosinophils # (Auto) 0.1 x10^3/uL (0.0-0.7) Basophils # (Auto) 0.1 x10^3/uL (0.0-0.2) Sodium Level 134 mmol/L (136-145) Potassium Level 4.8 mmol/L (3.5-5.1) Chloride Level 97 mmol/L (98-107) Carbon Dioxide Level 26 mmol/L (21-32) Anion Gap 11 (6-14) Blood Urea Nitrogen 39 mg/dL (8-26) Creatinine 4.2 mg/dL (0.7-1.3) Estimated GFR (Cockcroft-Gault) 15.0 Glucose Level 322 mg/dL (70-99) Calcium Level 8.9 mg/dL (8.5-10.1) Test 02/22/19 11:45 Glucose (Fingerstick) 322 mg/dL (70-99) Review of Systems Review of Systems: Unable to obtain, pt resting with NAD Assessment and Plan Assessmemt and Plan Problems Medical Problems: (1) DKA (diabetic ketoacidoses) Status: Acute (2) Elevated troponin Status: Acute (3) Renal failure Status: Acute Assessment Unsteady Gait Acute DKA Altered mental status Seizure SARAH Hyperkalemia T2DM Leukocytosis Lactic acidosis Dysphagia Plan Discontinue PPN Titrate off O2 Awaiting chair time When he has a chair time he will be D/C to home with his mom and sister Home meds DVT prophylaxis Full code PT/OT Comment Review of Relevant I have reviewed the following items mindy (where applicable) has been applied. MONIQUE SIERRA III DO Feb 22, 2019 13:22
--- NOTE | 2019-02-22 15:01 | PDOC ---
PROGRESS NOTES Assessment Assessment Metabolic encephalopathy. Seizure, provoked. Hyperglycemia, glucose level 737 on 02/11/19. Diabetic ketoacidosis. DM, poorly controlled. Leukocytosis. Hyperkalemia. Hypocalcemia. Rhabdomyolysis. Acute renal failure. HTN. HLD. Dysphagia, passed swallow test reportedly. No evidence of acute CVA this time. RECOMMENDATIONS/PLAN: Treat medical diseases. Continue ASA daily. Continue Lipitor HS. Dialysis. Control hyperglycemia. OT/PT. Discussed with his mother at bedside again on 02/22/19. 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 Full 14-point review of systems is negative. MEDICATIONS: Refer to [facility] PHYSICAL EXAMINATION: General appearance in no acute distress. HEENT: Normocephalic and nontraumatic. Eyes, nose, ears, and throat are unremarkable. Hearing decrease. Neck is supple. No lymphadenopathy. No bruits are heard over the carotid artery. No Crepitus. Cardiovascular: S1, S2, regular rate and rhythm. Pulmonary: Clear to auscultation bilaterally. Abdomen: Bowel sounds are positive. Abdomen is soft, nontender, and nondistended. Extremities: No rash, lesions, or edema. No restriction of range of motion NEUROLOGICAL EXAMINATION: Alert. Oriented to time, place and person. PERRL. EOMI. CN: no focal findings. Muscle tone: within normal. Muscle strength: 4+ DTR: 1-2 Plantar reflex: Flexor response bilaterally Gait: Able to walk in room. Sensory exam: no abnormal findings. No cerebellar signs elicited. F-T-N test fine. Objective Objective Vital Signs Date Time Temp Pulse Resp B/P (MAP) Pulse Ox O2 Delivery O2 Flow Rate FiO2 02/22/19 11:08 98.4 101 18 151/76 (101) 91 Room Air 98.4 02/22/19 08:00 2.0 Intake and Output 02/22/19 07:00 Intake Total 1180 ml Output Total 900 ml Balance 280 ml Intake Oral 180 ml IV Total 1000 ml Output Urine Total 900 ml Vitals Signs Vitals VS - Last 72 Hours, by Label Date Time Temp Pulse Resp B/P (MAP) Pulse Ox O2 Delivery O2 Flow Rate FiO2 02/22/19 11:08 98.4 101 18 151/76 (101) 91 Room Air 98.4 02/22/19 08:00 Nasal Cannula 2.0 02/22/19 07:47 98.9 92 17 137/75 (95) 98 Nasal Cannula 2.0 98.9 02/22/19 05:11 18 Room Air 02/22/19 03:10 98.1 82 16 127/69 (88) 97 Nasal Cannula 2.0 98.1 02/21/19 23:10 98.5 85 16 129/71 (90) 98 Nasal Cannula 2.0 98.5 02/21/19 20:17 Nasal Cannula 2.0 02/21/19 19:10 98.2 86 16 128/73 (91) 98 Nasal Cannula 2.0 98.2 02/21/19 15:52 99.0 97 18 126/70 (88) 97 Nasal Cannula 2.0 99.0 02/21/19 07:56 Nasal Cannula 2.0 02/21/19 07:00 98.4 84 20 144/74 (97) 95 Nasal Cannula 2.0 98.4 Laboratory Laboratory Laboratory Tests Test 02/21/19 17:39 02/21/19 20:56 02/22/19 07:27 02/22/19 08:45 Glucose (Fingerstick) 220 mg/dL (70-99) 284 mg/dL (70-99) 284 mg/dL (70-99) White Blood Count 9.3 x10^3/uL (4.0-11.0) Red Blood Count 2.72 x10^6/uL (4.30-5.70) Hemoglobin 9.0 g/dL (13.0-17.5) Hematocrit 25.9 % (39.0-53.0) Mean Corpuscular Volume 95 fL (79-100) Mean Corpuscular Hemoglobin 33 pg (25-35) Mean Corpuscular Hemoglobin Concent 35 g/dL (31-37) Red Cell Distribution Width 12.8 % (11.5-14.5) Platelet Count 280 x10^3/uL (140-400) Neutrophils (%) (Auto) 82 % (31-73) Lymphocytes (%) (Auto) 5 % (24-48) Monocytes (%) (Auto) 11 % (0-9) Eosinophils (%) (Auto) 1 % (0-3) Basophils (%) (Auto) 1 % (0-3) Neutrophils # (Auto) 7.6 x10^3/uL (1.8-7.7) Lymphocytes # (Auto) 0.5 x10^3/uL (1.0-4.8) Monocytes # (Auto) 1.0 x10^3/uL (0.0-1.1) Eosinophils # (Auto) 0.1 x10^3/uL (0.0-0.7) Basophils # (Auto) 0.1 x10^3/uL (0.0-0.2) Sodium Level 134 mmol/L (136-145) Potassium Level 4.8 mmol/L (3.5-5.1) Chloride Level 97 mmol/L (98-107) Carbon Dioxide Level 26 mmol/L (21-32) Anion Gap 11 (6-14) Blood Urea Nitrogen 39 mg/dL (8-26) Creatinine 4.2 mg/dL (0.7-1.3) Estimated GFR (Cockcroft-Gault) 15.0 Glucose Level 322 mg/dL (70-99) Calcium Level 8.9 mg/dL (8.5-10.1) Test 02/22/19 11:45 Glucose (Fingerstick) 322 mg/dL (70-99) Microbiology 02/12/19 Throat Culture - Final, Complete 02/12/19 - Final, Complete 02/12/19 Blood Culture - Final, Complete NO GROWTH AFTER 5 DAYS 02/11/19 Urine Culture - Final, Complete 02/11/19 Urine Culture Result 1 (SABINE) - Final, Complete Comment Review of Relevant I have reviewed the following items mindy (where applicable) has been applied. VINCENT CALIXTO MD Feb 22, 2019 15:01
[2019-02-22 15:25] VITALS: BP 150/74
[2019-02-22] MEDS ORDERED: INSULIN LISPRO 300 UNITS/3 ML VIAL. SQ ONE (17:15)
[2019-02-22 19:15] VITALS: BP 134/77
[2019-02-22] MEDS: ATORVASTATIN CALCIUM 20 MG TABLET PO SCH (21:08)
[2019-02-22 23:15] VITALS: BP 140/73
[2019-02-23 03:15] VITALS: BP 134/79
[2019-02-23 07:20] VITALS: BP 146/77
[2019-02-23] MEDS: ASPIRIN CHEWABLE 81 MG TABLET. PO SCH (08:06)
[2019-02-23] MEDS: LACTOBACILLUS RHAMNOSUS GG 1 CAPSULE. PO SCH ×2 (08:06→20:55)
[2019-02-23] MEDS: INSULIN LISPRO 300 UNITS/3 ML INSULN.PEN. SQ SCH ×4 (08:16→21:00)
[2019-02-23 10:14] LABS: BASO # 0.1 x10^3/uL (0.0-0.2); BASO % 1 % (0-3); EOS # 0.1 x10^3/uL (0.0-0.7); EOS % 1 % (0-3); HEMATOCRIT 28.2 % (39.0-53.0); HEMOGLOBIN 9.8 g/dL (13.0-17.5); LYMPH # 0.5 x10^3/uL (1.0-4.8); LYMPH % 6 % (24-48); MEAN CORPUSCULAR HEMOGLOBIN 33 pg (25-35); MEAN CORPUSCULAR HGB CONC 35 g/dL (31-37); MEAN CORPUSCULAR VOLUME 95 fL (79-100); MONO # 0.9 x10^3/uL (0.0-1.1); MONO % 11 % (0-9); NEUT % 81 % (31-73); PLATELET COUNT 284 x10^3/uL (140-400); RED BLOOD COUNT 2.97 x10^6/uL (4.30-5.70); RED CELL DISTRIBUTION WIDTH 12.7 % (11.5-14.5); WHITE BLOOD COUNT 8.6 x10^3/uL (4.0-11.0)
[2019-02-23 10:31] LABS: CALCIUM 9.1 mg/dL (8.5-10.1); CREATININE 5.2 mg/dL (0.7-1.3); GFR 11.8; POTASSIUM 3.9 mmol/L (3.5-5.1)
[2019-02-23 11:02] VITALS: BP 129/71
--- NOTE | 2019-02-23 13:22 | PDOC ---
[facility] [facility] PROGRESS NOTE Chief Complaint Chief Complaint Unsteady Gait Acute DKA Altered mental status Seizure SARAH Hyperkalemia T2DM Leukocytosis Lactic acidosis Dysphagia History of Present Illness History of Present Illness 02/23/19 Pt seen/examined at bedside DW pt and his mom 02/22/19 Resting w/ NAD DW RN who said she is titrating off O2 02/21/19 Pt seen/examined in HD MRI indicates no significant findings DW 02/20/19 Pt seen/examined at bedside Pt returned from MRI of head, await results Pt has [place] to bsd Previous Days Notes per Dr. Howard 02/18/19: renal dose to po augmentin Off azithromycin, cultures negative, including group A strep continue to adjust insulin as needed 02/14/19 Pt seen and examined in ICU [place] to BSD Pt sitting up in chair and communicative Anion gap 17 (14, 17 today) CHUCKY RN DW family 02/13/19 Pt seen and examined in ICU Venti mask at 50% O2 Pt sitting up in bed marked improvement Anion gap trending down ( 02/17 OP HD WILL HAVE IR CONVERT TEMP TO TUNNELED HD CATHETER Vitals/I&O Vitals/I&O: Vital Signs Date Time Temp Pulse Resp B/P (MAP) Pulse Ox O2 Delivery O2 Flow Rate FiO2 02/23/19 11:02 97.8 96 18 129/71 (90) 100 Room Air 97.8 02/22/19 08:00 2.0 I & O 02/22/19 02/22/19 02/23/19 15:00 23:00 07:00 Intake Total 480 ml 200 ml 100 ml Output Total 300 ml Balance 480 ml 200 ml -200 ml Physical Exam General: Alert, Oriented X3, Cooperative, No acute distress Heart: Regular rate, Normal S1, Other (distant heart tones) Lungs: Crackles Abdomen: Normal bowel sounds, Soft, No tenderness Extremities: No clubbing, No edema, Normal pulses Skin: No breakdown, No significant lesion Labs Labs: Laboratory Tests Test 02/22/19 16:51 02/22/19 21:07 02/23/19 07:35 02/23/19 09:27 Glucose (Fingerstick) 429 mg/dL (70-99) 206 mg/dL (70-99) 265 mg/dL (70-99) White Blood Count 8.6 x10^3/uL (4.0-11.0) Red Blood Count 2.97 x10^6/uL (4.30-5.70) Hemoglobin 9.8 g/dL (13.0-17.5) Hematocrit 28.2 % (39.0-53.0) Mean Corpuscular Volume 95 fL (79-100) Mean Corpuscular Hemoglobin 33 pg (25-35) Mean Corpuscular Hemoglobin Concent 35 g/dL (31-37) Red Cell Distribution Width 12.7 % (11.5-14.5) Platelet Count 284 x10^3/uL (140-400) Neutrophils (%) (Auto) 81 % (31-73) Lymphocytes (%) (Auto) 6 % (24-48) Monocytes (%) (Auto) 11 % (0-9) Eosinophils (%) (Auto) 1 % (0-3) Basophils (%) (Auto) 1 % (0-3) Neutrophils # (Auto) 7.0 x10^3/uL (1.8-7.7) Lymphocytes # (Auto) 0.5 x10^3/uL (1.0-4.8) Monocytes # (Auto) 0.9 x10^3/uL (0.0-1.1) Eosinophils # (Auto) 0.1 x10^3/uL (0.0-0.7) Basophils # (Auto) 0.1 x10^3/uL (0.0-0.2) Sodium Level 135 mmol/L (136-145) Potassium Level 3.9 mmol/L (3.5-5.1) Chloride Level 97 mmol/L (98-107) Carbon Dioxide Level 26 mmol/L (21-32) Anion Gap 12 (6-14) Blood Urea Nitrogen 51 mg/dL (8-26) Creatinine 5.2 mg/dL (0.7-1.3) Estimated GFR (Cockcroft-Gault) 11.8 Glucose Level 268 mg/dL (70-99) Calcium Level 9.1 mg/dL (8.5-10.1) Test 02/23/19 11:36 Glucose (Fingerstick) 256 mg/dL (70-99) Review of Systems Review of Systems: No confusion No CO pain Assessment and Plan Assessmemt and Plan Problems Medical Problems: (1) DKA (diabetic ketoacidoses) Status: Acute (2) Elevated troponin Status: Acute (3) Renal failure Status: Acute Assessment Unsteady Gait Acute DKA Altered mental status Seizure SARAH Hyperkalemia T2DM Leukocytosis Lactic acidosis Dysphagia Plan Await chair time When he has a chair time he will be D/C to home with his mom and sister DVT prophylaxis Home meds Labs PT/OT Full code Comment Review of Relevant I have reviewed the following items mindy (where applicable) has been applied. Medications: Current Medications Medications (Trade) Dose Ordered Sig/Ismael Route PRN Reason Start Time Stop Time Status Last Admin Dose Admin Insulin Human Lispro (HumaLOG) 10 units 1X ONCE SQ 02/22/19 17:15 02/22/19 17:16 DC 02/22/19 17:24 MONIQUE SIERRA III DO Feb 23, 2019 13:22
--- NOTE | 2019-02-23 14:21 | PDOC ---
PROGRESS NOTES Assessment Assessment Metabolic encephalopathy. Seizure, provoked. Hyperglycemia, glucose level 737 on 02/11/19. Diabetic ketoacidosis. DM, poorly controlled. Leukocytosis. Hyperkalemia. Hypocalcemia. Rhabdomyolysis. Acute renal failure. HTN. HLD. Dysphagia, passed swallow test reportedly. No evidence of acute CVA this time. RECOMMENDATIONS/PLAN: Treat medical diseases. Continue ASA daily. Continue Lipitor HS. Dialysis. Control hyperglycemia. OT/PT. Discussed with his mother at bedside again on 02/23/19. 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 Full 14-point review of systems is negative. MEDICATIONS: Refer to [facility] PHYSICAL EXAMINATION: General appearance in no acute distress. HEENT: Normocephalic and nontraumatic. Eyes, nose, ears, and throat are unremarkable. Hearing decrease. Neck is supple. No lymphadenopathy. No bruits are heard over the carotid artery. No Crepitus. Cardiovascular: S1, S2, regular rate and rhythm. Pulmonary: Clear to auscultation bilaterally. Abdomen: Bowel sounds are positive. Abdomen is soft, nontender, and nondistended. Extremities: No rash, lesions, or edema. No restriction of range of motion NEUROLOGICAL EXAMINATION: Alert. Oriented to time, place and person. PERRL. EOMI. CN: no focal findings. Muscle tone: within normal. Muscle strength: 4+ DTR: 1-2 Plantar reflex: Flexor response bilaterally Gait: Able to walk with a walker in room. Sensory exam: no abnormal findings. No cerebellar signs elicited. F-T-N test fine. Objective Objective Vital Signs Date Time Temp Pulse Resp B/P (MAP) Pulse Ox O2 Delivery O2 Flow Rate FiO2 02/23/19 11:02 97.8 96 18 129/71 (90) 100 Room Air 97.8 02/22/19 08:00 2.0 Intake and Output 02/23/19 07:00 Intake Total 780 ml Output Total 300 ml Balance 480 ml Intake Oral 780 ml Output Urine Total 300 ml # Voids 1 # Bowel Movements 1 Vitals Signs Vitals VS - Last 72 Hours, by Label Date Time Temp Pulse Resp B/P (MAP) Pulse Ox O2 Delivery O2 Flow Rate FiO2 02/23/19 11:02 97.8 96 18 129/71 (90) 100 Room Air 97.8 02/23/19 08:00 Room Air 02/23/19 07:20 98.2 97 17 146/77 (100) 94 Room Air 98.2 02/23/19 03:15 99.1 86 17 134/79 (97) 92 Room Air 99.1 02/22/19 23:15 98.5 84 17 140/73 (95) 92 Room Air 98.5 02/22/19 20:00 Room Air 02/22/19 19:15 98.8 88 20 134/77 (96) 94 Room Air 98.8 02/22/19 15:25 97.7 92 18 150/74 (99) 91 Room Air 97.7 02/22/19 11:08 98.4 101 18 151/76 (101) 91 Room Air 98.4 02/22/19 08:00 Nasal Cannula 2.0 02/22/19 07:47 98.9 92 17 137/75 (95) 98 Nasal Cannula 2.0 98.9 Laboratory Laboratory Laboratory Tests Test 02/22/19 16:51 02/22/19 21:07 02/23/19 07:35 02/23/19 09:27 Glucose (Fingerstick) 429 mg/dL (70-99) 206 mg/dL (70-99) 265 mg/dL (70-99) White Blood Count 8.6 x10^3/uL (4.0-11.0) Red Blood Count 2.97 x10^6/uL (4.30-5.70) Hemoglobin 9.8 g/dL (13.0-17.5) Hematocrit 28.2 % (39.0-53.0) Mean Corpuscular Volume 95 fL (79-100) Mean Corpuscular Hemoglobin 33 pg (25-35) Mean Corpuscular Hemoglobin Concent 35 g/dL (31-37) Red Cell Distribution Width 12.7 % (11.5-14.5) Platelet Count 284 x10^3/uL (140-400) Neutrophils (%) (Auto) 81 % (31-73) Lymphocytes (%) (Auto) 6 % (24-48) Monocytes (%) (Auto) 11 % (0-9) Eosinophils (%) (Auto) 1 % (0-3) Basophils (%) (Auto) 1 % (0-3) Neutrophils # (Auto) 7.0 x10^3/uL (1.8-7.7) Lymphocytes # (Auto) 0.5 x10^3/uL (1.0-4.8) Monocytes # (Auto) 0.9 x10^3/uL (0.0-1.1) Eosinophils # (Auto) 0.1 x10^3/uL (0.0-0.7) Basophils # (Auto) 0.1 x10^3/uL (0.0-0.2) Sodium Level 135 mmol/L (136-145) Potassium Level 3.9 mmol/L (3.5-5.1) Chloride Level 97 mmol/L (98-107) Carbon Dioxide Level 26 mmol/L (21-32) Anion Gap 12 (6-14) Blood Urea Nitrogen 51 mg/dL (8-26) Creatinine 5.2 mg/dL (0.7-1.3) Estimated GFR (Cockcroft-Gault) 11.8 Glucose Level 268 mg/dL (70-99) Calcium Level 9.1 mg/dL (8.5-10.1) Test 02/23/19 11:36 Glucose (Fingerstick) 256 mg/dL (70-99) Microbiology 02/12/19 Throat Culture - Final, Complete 02/12/19 - Final, Complete 02/12/19 Blood Culture - Final, Complete NO GROWTH AFTER 5 DAYS 02/11/19 Urine Culture - Final, Complete 02/11/19 Urine Culture Result 1 (SABINE) - Final, Complete Medication Medications Current Medications Insulin Human Lispro (HumaLOG) 10 units 1X ONCE SQ Last administered on 02/22/19at 17:24; Start 02/22/19 at 17:15; Stop 02/22/19 at 17:16; Status DC Comment Review of Relevant I have reviewed the following items mindy (where applicable) has been applied. VINCENT CALIXTO MD Feb 23, 2019 14:21
[2019-02-23 15:30] VITALS: BP 133/80
[2019-02-23 19:15] VITALS: BP 139/70
[2019-02-23] MEDS: ATORVASTATIN CALCIUM 20 MG TABLET PO SCH (20:55)
[2019-02-23 23:15] VITALS: BP 140/74
[2019-02-24] VITALS (7 sets, daily range): BP systolic 127–137; BP diastolic 73–83
[2019-02-24 04:55] LABS: BASO # 0.1 x10^3/uL (0.0-0.2); BASO % 1 % (0-3); EOS # 0.2 x10^3/uL (0.0-0.7); EOS % 3 % (0-3); HEMATOCRIT 26.4 % (39.0-53.0); HEMOGLOBIN 9.3 g/dL (13.0-17.5); LYMPH # 0.4 x10^3/uL (1.0-4.8); LYMPH % 6 % (24-48); MEAN CORPUSCULAR HEMOGLOBIN 33 pg (25-35); MEAN CORPUSCULAR HGB CONC 35 g/dL (31-37); MEAN CORPUSCULAR VOLUME 95 fL (79-100); MONO # 0.9 x10^3/uL (0.0-1.1); MONO % 12 % (0-9); NEUT # 5.6 x10^3/uL (1.8-7.7); NEUT % 78 % (31-73); PLATELET COUNT 260 x10^3/uL (140-400); RED BLOOD COUNT 2.79 x10^6/uL (4.30-5.70); RED CELL DISTRIBUTION WIDTH 12.5 % (11.5-14.5); WHITE BLOOD COUNT 7.2 x10^3/uL (4.0-11.0)
[2019-02-24 05:35] LABS: CALCIUM 8.9 mg/dL (8.5-10.1); CREATININE 5.7 mg/dL (0.7-1.3); GFR 10.6; POTASSIUM 3.8 mmol/L (3.5-5.1)
[2019-02-24] MEDS ORDERED: IV NORMAL SALINE 1000ML BAG 1,000 ML IV PRN ×2 (07:43)
[2019-02-24] MEDS ORDERED: 0.9 % SODIUM CHLORIDE 10 ML DISP.SYRIN. IV PRN ×2 (07:45)
[2019-02-24] MEDS ORDERED: ALBUMIN HUMAN 25% 200 ML IV PRN (07:45)
[2019-02-24] MEDS ORDERED: DIALYSIS PATIENT. MC PRN ×2 (07:45)
[2019-02-24] MEDS: INSULIN LISPRO 300 UNITS/3 ML INSULN.PEN. SQ SCH ×4 (07:54→19:39)
--- NOTE | 2019-02-24 08:00 | NUR ---
Report to Rodrigo FREYclerical office worker, patient blood sugar 277, to give SSE, see emar. Patient verb.understanding POC. Patient to dialysis per bed.
--- NOTE | 2019-02-24 10:18 | PDOC ---
PROGRESS NOTES Assessment Problems Medical Problems: (1) DKA (diabetic ketoacidoses) Status: Acute (2) Elevated troponin Status: Acute (3) Renal failure Status: Acute Metabolic encephalopathy. Seizure, provoked, EEG negative for epileptic activity. Rhabdomyolysis. Dysphagia, passed swallow test reportedly. No evidence of acute CVA Plan Treat medical diseases. Continue ASA daily. Continue Lipitor HS. OT/PT. Subjective No complaints Objective Vital Signs Date Time Temp Pulse Resp B/P (MAP) Pulse Ox O2 Delivery O2 Flow Rate FiO2 02/24/19 08:00 Room Air 02/24/19 07:00 98.6 87 18 127/73 (91) 93 98.6 Intake and Output 02/24/19 06:59 Intake Total 1010 ml Output Total 500 ml Balance 510 ml Intake Oral 1010 ml Output Urine Total 500 ml # Voids 4 # Bowel Movements 2 PHYSICAL EXAM Alert. Oriented to time, place and person. PERRL. EOMI. CN: no focal findings. Muscle tone: normal. Muscle strength: 4+/5 DTR: 1+ Plantar reflex: flexor Gait: not examined in bed. Sensory exam: no abnormal findings. No cerebellar signs elicited. Review of Relevant I have reviewed the following items mindy (where applicable) has been applied. Labs Laboratory Tests Test 02/22/19 11:45 02/22/19 16:51 02/22/19 21:07 02/23/19 07:35 Glucose (Fingerstick) 322 mg/dL (70-99) 429 mg/dL (70-99) 206 mg/dL (70-99) 265 mg/dL (70-99) Test 02/23/19 09:27 02/23/19 11:36 02/23/19 16:20 02/23/19 20:56 White Blood Count 8.6 x10^3/uL (4.0-11.0) Red Blood Count 2.97 x10^6/uL (4.30-5.70) Hemoglobin 9.8 g/dL (13.0-17.5) Hematocrit 28.2 % (39.0-53.0) Mean Corpuscular Volume 95 fL (79-100) Mean Corpuscular Hemoglobin 33 pg (25-35) Mean Corpuscular Hemoglobin Concent 35 g/dL (31-37) Red Cell Distribution Width 12.7 % (11.5-14.5) Platelet Count 284 x10^3/uL (140-400) Neutrophils (%) (Auto) 81 % (31-73) Lymphocytes (%) (Auto) 6 % (24-48) Monocytes (%) (Auto) 11 % (0-9) Eosinophils (%) (Auto) 1 % (0-3) Basophils (%) (Auto) 1 % (0-3) Neutrophils # (Auto) 7.0 x10^3/uL (1.8-7.7) Lymphocytes # (Auto) 0.5 x10^3/uL (1.0-4.8) Monocytes # (Auto) 0.9 x10^3/uL (0.0-1.1) Eosinophils # (Auto) 0.1 x10^3/uL (0.0-0.7) Basophils # (Auto) 0.1 x10^3/uL (0.0-0.2) Sodium Level 135 mmol/L (136-145) Potassium Level 3.9 mmol/L (3.5-5.1) Chloride Level 97 mmol/L (98-107) Carbon Dioxide Level 26 mmol/L (21-32) Anion Gap 12 (6-14) Blood Urea Nitrogen 51 mg/dL (8-26) Creatinine 5.2 mg/dL (0.7-1.3) Estimated GFR (Cockcroft-Gault) 11.8 Glucose Level 268 mg/dL (70-99) Calcium Level 9.1 mg/dL (8.5-10.1) Glucose (Fingerstick) 256 mg/dL (70-99) 303 mg/dL (70-99) 266 mg/dL (70-99) Test 02/24/19 04:10 02/24/19 07:14 White Blood Count 7.2 x10^3/uL (4.0-11.0) Red Blood Count 2.79 x10^6/uL (4.30-5.70) Hemoglobin 9.3 g/dL (13.0-17.5) Hematocrit 26.4 % (39.0-53.0) Mean Corpuscular Volume 95 fL (79-100) Mean Corpuscular Hemoglobin 33 pg (25-35) Mean Corpuscular Hemoglobin Concent 35 g/dL (31-37) Red Cell Distribution Width 12.5 % (11.5-14.5) Platelet Count 260 x10^3/uL (140-400) Neutrophils (%) (Auto) 78 % (31-73) Lymphocytes (%) (Auto) 6 % (24-48) Monocytes (%) (Auto) 12 % (0-9) Eosinophils (%) (Auto) 3 % (0-3) Basophils (%) (Auto) 1 % (0-3) Neutrophils # (Auto) 5.6 x10^3/uL (1.8-7.7) Lymphocytes # (Auto) 0.4 x10^3/uL (1.0-4.8) Monocytes # (Auto) 0.9 x10^3/uL (0.0-1.1) Eosinophils # (Auto) 0.2 x10^3/uL (0.0-0.7) Basophils # (Auto) 0.1 x10^3/uL (0.0-0.2) Sodium Level 135 mmol/L (136-145) Potassium Level 3.8 mmol/L (3.5-5.1) Chloride Level 96 mmol/L (98-107) Carbon Dioxide Level 24 mmol/L (21-32) Anion Gap 15 (6-14) Blood Urea Nitrogen 57 mg/dL (8-26) Creatinine 5.7 mg/dL (0.7-1.3) Estimated GFR (Cockcroft-Gault) 10.6 Glucose Level 282 mg/dL (70-99) Calcium Level 8.9 mg/dL (8.5-10.1) Glucose (Fingerstick) 277 mg/dL (70-99) Laboratory Tests Test 02/23/19 11:36 02/23/19 16:20 02/23/19 20:56 02/24/19 04:10 Glucose (Fingerstick) 256 mg/dL (70-99) 303 mg/dL (70-99) 266 mg/dL (70-99) White Blood Count 7.2 x10^3/uL (4.0-11.0) Red Blood Count 2.79 x10^6/uL (4.30-5.70) Hemoglobin 9.3 g/dL (13.0-17.5) Hematocrit 26.4 % (39.0-53.0) Mean Corpuscular Volume 95 fL (79-100) Mean Corpuscular Hemoglobin 33 pg (25-35) Mean Corpuscular Hemoglobin Concent 35 g/dL (31-37) Red Cell Distribution Width 12.5 % (11.5-14.5) Platelet Count 260 x10^3/uL (140-400) Neutrophils (%) (Auto) 78 % (31-73) Lymphocytes (%) (Auto) 6 % (24-48) Monocytes (%) (Auto) 12 % (0-9) Eosinophils (%) (Auto) 3 % (0-3) Basophils (%) (Auto) 1 % (0-3) Neutrophils # (Auto) 5.6 x10^3/uL (1.8-7.7) Lymphocytes # (Auto) 0.4 x10^3/uL (1.0-4.8) Monocytes # (Auto) 0.9 x10^3/uL (0.0-1.1) Eosinophils # (Auto) 0.2 x10^3/uL (0.0-0.7) Basophils # (Auto) 0.1 x10^3/uL (0.0-0.2) Sodium Level 135 mmol/L (136-145) Potassium Level 3.8 mmol/L (3.5-5.1) Chloride Level 96 mmol/L (98-107) Carbon Dioxide Level 24 mmol/L (21-32) Anion Gap 15 (6-14) Blood Urea Nitrogen 57 mg/dL (8-26) Creatinine 5.7 mg/dL (0.7-1.3) Estimated GFR (Cockcroft-Gault) 10.6 Glucose Level 282 mg/dL (70-99) Calcium Level 8.9 mg/dL (8.5-10.1) Test 02/24/19 07:14 Glucose (Fingerstick) 277 mg/dL (70-99) Microbiology 02/12/19 Throat Culture - Final, Complete 02/12/19 - Final, Complete 02/12/19 Blood Culture - Final, Complete NO GROWTH AFTER 5 DAYS 02/11/19 Urine Culture - Final, Complete 02/11/19 Urine Culture Result 1 (SABINE) - Final, Complete Medications Current Medications Sodium Chloride 1,000 ml @ 1,000 mls/hr 1X ONCE IV Last administered on 02/11/19at 19:19; Start 02/11/19 at 19:15; Stop 02/11/19 at 20:14; Status DC Sodium Chloride 1,000 ml @ 1,000 mls/hr 1X ONCE IV Last administered on 02/11/19at 20:21; Start 02/11/19 at 20:00; Stop 02/11/19 at 20:59; Status DC Insulin Human Regular (HumuLIN R VIAL) 9 unit 1X ONCE SQ Last administered on 02/11/19at 20:21; Start 02/11/19 at 20:00; Stop 02/11/19 at 20:01; Status DC Insulin Human Regular 150 unit/ Sodium Chloride 151.5 ml @ 0 mls/hr CONT PRN PRN IV PER PROTOCOL Last administered on 02/13/19at 06:10; Start 02/11/19 at 20:00; Stop 02/23/19 at 17:03; Status DC Potassium Chloride/Water 100 ml @ 100 mls/hr PRN Q1HR PRN IV SEE COMMENTS; Start 02/11/19 at 20:00 Potassium Chloride/Water 100 ml @ 100 mls/hr PRN Q1HR PRN IV SEE COMMENTS; Start 02/11/19 at 20:00 Potassium Chloride/Water 100 ml @ 100 mls/hr PRN Q1HR PRN IV SEE COMMENTS; Start 02/11/19 at 20:00 Magnesium Sulfate/ Dextrose 100 ml @ 25 mls/hr PRN DAILY PRN IV SEE COMMENTS; Start 02/12/19 at 09:00 Aspirin (Aspirin Rectal Supp) 300 mg 1X ONCE GA Last administered on 02/11/19at 20:21; Start 02/11/19 at 20:00; Stop 02/11/19 at 20:03; Status DC Insulin Human Regular 150 ml @ 0 mls/hr CONT PRN PRN IV PER PROTOCOL Last administered on 02/11/19at 20:21; Start 02/11/19 at 20:15; Stop 02/11/19 at 23:00; Status DC Ondansetron HCl (Zofran) 4 mg PRN Q8HRS PRN IV NAUSEA/VOMITING; Start 02/11/19 at 20:30; Stop 02/12/19 at 20:29; Status DC Calcium Gluconate (Calcium Gluconate) 1,000 mg 1X ONCE IVP Last administered on 02/11/19at 21:29; Start 02/11/19 at 21:00; Stop 02/11/19 at 21:01; Status DC Sodium Chloride 1,000 ml @ 500 mls/hr 1X ONCE IV Last administered on 02/11/19at 21:29; Start 02/11/19 at 21:30; Stop 02/11/19 at 23:29; Status DC Lidocaine/Sodium Bicarbonate (Buffered Lidocaine 1%) 3 ml STK-MED ONCE .ROUTE ; Start 02/11/19 at 22:37; Stop 02/11/19 at 22:37; Status DC Lidocaine/Sodium Bicarbonate (Buffered Lidocaine 1%) 3 ml 1X ONCE IJ Last administered on 02/11/19at 23:10; Start 02/11/19 at 23:00; Stop 02/11/19 at 23:01; Status DC Sodium Chloride 1,000 ml @ 1,000 mls/hr Q1H PRN IV hypotension; Start 02/11/19 at 23:23; Stop 02/12/19 at 05:22; Status DC Sodium Chloride 1,000 ml @ 400 mls/hr Q2H30M PRN IV PATENCY; Start 02/11/19 at 23:23; Stop 02/12/19 at 11:22; Status DC Info (PHARMACY MONITORING -- do not chart) 1 each PRN DAILY PRN MC SEE COMMENTS; Start 02/11/19 at 23:30; Status UNV Info (PHARMACY MONITORING -- do not chart) 1 each PRN DAILY PRN MC SEE COMMENTS; Start 02/11/19 at 23:30; Stop 02/12/19 at 18:07; Status DC Sodium Chloride 1,000 ml @ 250 mls/hr Q4H IV Last administered on 02/12/19at 00:20; Start 02/12/19 at 00:14; Stop 02/12/19 at 01:32; Status DC Piperacillin Sod/ Tazobactam Sod 3.375 gm/Sodium Chloride 50 ml @ 100 mls/hr Q6HRS IV ; Start 02/12/19 at 01:00; Status UNV Piperacillin Sod/ Tazobactam Sod 2.25 gm/Sodium Chloride 50 ml @ 100 mls/hr Q8HRS IV Last administered on 02/17/19at 05:59; Start 02/12/19 at 01:00; Stop 02/17/19 at 13:26; Status DC Dextrose/Sodium Chloride 1,000 ml @ 250 mls/hr Q4H IV Last administered on 02/12/19at 15:39; Start 02/12/19 at 01:32; Stop 02/12/19 at 21:05; Status DC Lorazepam (Ativan Inj) 1 mg PRN Q10MIN PRN IV SEIZURE; Start 02/12/19 at 03:00 Sodium Chloride 250 ml @ 250 mls/hr 1X ONCE IV Last administered on 02/12/19at 05:25; Start 02/12/19 at 05:00; Stop 02/12/19 at 05:59; Status DC Azithromycin 500 mg/Sodium Chloride 250 ml @ 250 mls/hr 1X ONCE IV Last adm inistered on 02/12/19at 05:25; Start 02/12/19 at 05:00; Stop 02/12/19 at 05:59; Status DC Potassium Chloride/Water 50 ml @ 25 mls/hr Q2H IV Last administered on 02/12/19at 10:06; Start 02/12/19 at 08:00; Stop 02/12/19 at 11:59; Status DC Azithromycin 250 ml @ 250 mls/hr 1X ONCE IV ; Start 02/13/19 at 05:00; Stop 02/12/19 at 11:37; Status DC Azithromycin 500 mg/Sodium Chloride 250 ml @ 250 mls/hr 1X ONCE IV Last administered on 02/13/19at 04:33; Start 02/13/19 at 05:00; Stop 02/13/19 at 05:59; Status DC Potassium Chloride/Water 50 ml @ 25 mls/hr Q2H IV Last administered on 02/12/19at 18:18; Start 02/12/19 at 16:00; Stop 02/12/19 at 19:59; Status DC Sodium Chloride 1,000 ml @ 1,000 mls/hr Q1H PRN IV hypotension; Start 02/12/19 at 15:00; Stop 02/12/19 at 20:59; Status DC Sodium Chloride (Normal Saline Flush) 10 ml 1X PRN PRN IV AP catheter pack; Start 02/12/19 at 15:00; Stop 02/13/19 at 14:17; Status DC Sodium Chloride (Normal Saline Flush) 10 ml 1X PRN PRN IV TANK TERMINAL GAUGER catheter pack; Start 02/12/19 at 15:00; Stop 02/13/19 at 14:17; Status DC Sodium Chloride 1,000 ml @ 400 mls/hr Q2H30M PRN IV PATENCY; Start 02/12/19 at 15:00; Stop 02/13/19 at 02:59; Status DC Info (PHARMACY MONITORING -- do not chart) 1 each PRN DAILY PRN MC SEE COMMENTS; Start 02/12/19 at 18:00; Stop 02/12/19 at 18:07; Status DC Info (PHARMACY MONITORING -- do not chart) 1 each PRN DAILY PRN MC SEE COMMENTS; Start 02/12/19 at 18:00; Status Cancel Sodium Chloride 1,000 ml @ 75 mls/hr [id number] IV Last administered on 02/15/19at 22:35; Start 02/12/19 at 20:45; Stop 02/16/19 at 13:48; Status DC Dextrose (Dextrose 50%-Water Syringe) 12.5 gm PRN Q15MIN PRN IV SEE COMMENTS Last administered on 02/13/19at 11:44; Start 02/12/19 at 20:45 Hydralazine HCl (Apresoline Inj) 10 mg PRN Q4HRS PRN IVP ELEVATED BP, SEE COMMENTS Last administered on 02/16/19at 21:14; Start 02/12/19 at 20:45 Insulin Human Lispro (HumaLOG) 0-5 UNITS Q6HRS SQ Last administered on 02/19/19at 05:57; Start 02/13/19 at 00:00; Stop 02/19/19 at 15:54; Status DC Albuterol Sulfate (Ventolin Neb Soln) 2.5 mg 1X ONCE NEB Last administered on 02/13/19at 01:01; Start 02/13/19 at 01:00; Stop 02/13/19 at 01:01; Status DC Ondansetron HCl (Zofran) 4 mg PRN Q6HRS PRN IV NAUSEA/VOMITING Last administered on 02/15/19at 06:08; Start 02/13/19 at 03:30 Scopolamine (Transderm-Scop) 1 patch 1X ONCE TD Last administered on 02/13/19at 13:44; Start 02/13/19 at 11:45; Stop 02/13/19 at 11:46; Status DC Azithromycin 500 mg/Sodium Chloride 250 ml @ 250 mls/hr 1X ONCE IV Last administered on 02/14/19at 04:32; Start 02/14/19 at 05:00; Stop 02/14/19 at 05:59; Status DC Sodium Chloride 1,000 ml @ 1,000 mls/hr Q1H PRN IV hypotension; Start 02/14/19 at 11:09; Stop 02/14/19 at 17:08; Status DC Albumin Human 200 ml @ 200 mls/hr 1X PRN PRN IV Hypotension; Start 02/14/19 at 11:15; Stop 02/14/19 at 17:14; Status DC Sodium Chloride (Normal Saline Flush) 10 ml 1X PRN PRN IV AP catheter pack; Start 02/14/19 at 11:15; Stop 02/15/19 at 11:14; Status DC Sodium Chloride (Normal Saline Flush) 10 ml 1X PRN PRN IV TANK TERMINAL GAUGER catheter pack; Start 02/14/19 at 11:15; Stop 02/15/19 at 11:14; Status DC Sodium Chloride 1,000 ml @ 400 mls/hr Q2H30M PRN IV PATENCY; Start 02/14/19 at 11:09; Stop 02/14/19 at 23:08; Status DC Info (PHARMACY MONITORING -- do not chart) 1 each PRN DAILY PRN MC SEE COMMENTS; Start 02/14/19 at 11:15; Status UNV Info (PHARMACY MONITORING -- do not chart) 1 each PRN DAILY PRN MC SEE COMMENTS; Start 02/14/19 at 11:15; Status UNV Morphine Sulfate (Morphine Sulfate) 2 mg PRN Q4HRS PRN IV PAIN Last administered on 02/22/19at 05:11; Start 02/15/19 at 21:30 Sodium Chloride 1,000 ml @ 50 mls/hr Q20H IV Last administered on 02/16/19at 18:29; Start 02/16/19 at 18:00; Stop 02/17/19 at 15:12; Status DC Sodium Chloride 1,000 ml @ 1,000 mls/hr Q1H PRN IV hypotension; Start 02/17/19 at 07:39; Stop 02/17/19 at 13:38; Status DC Diphenhydramine HCl (Benadryl) 25 mg 1X PRN PRN IV ITCHING; Start 02/17/19 at 07:45; Stop 02/18/19 at 07:44; Status DC Diphenhydramine HCl (Benadryl) 25 mg 1X PRN PRN IV ITCHING; Start 02/17/19 at 07:45; Stop 02/18/19 at 07:44; Status DC Sodium Chloride 1,000 ml @ 400 mls/hr Q2H30M PRN IV PATENCY; Start 02/17/19 at 07:39; Stop 02/17/19 at 19:38; Status DC Info (PHARMACY MONITORING -- do not chart) 1 each PRN DAILY PRN MC SEE COMMENTS; Start 02/17/19 at 07:45; Stop 02/21/19 at 14:29; Status DC Aspirin (Children'S Aspirin) 81 mg [id number] PO Last administered on 02/23/19at 08:07; Start 02/17/19 at 12:30 Atorvastatin Calcium (Lipitor) 20 mg QHS PO Last administered on 02/23/19at 20:55; Start 02/17/19 at 21:00 Darbepoetin Michael (ARANESP for DIALYSIS PTS) 60 mcg [id number] SQ Last administered on 02/17/19at 19:41; Start 02/17/19 at 21:00 Amoxicillin/ Clavulanate Potassium (Augmentin 500/ 125mg) 1 tab BID PO ; Start 02/17/19 at 21:00; Stop 02/18/19 at 16:44; Status DC Amino Acids/ Glycerin/ Electrolytes 1,000 ml @ 80 mls/hr [id number] IV Last administered on 02/22/19at 05:57; Start 02/17/19 at 15:15; Stop 02/22/19 at 17:26; Status DC Lactobacillus Rhamnosus (Culturelle) 1 cap BID PO Last administered on 02/23/19at 20:55; Start 02/17/19 at 21:00 Midazolam HCl (Versed) 2 mg STK-MED ONCE .ROUTE ; Start 02/18/19 at 13:05; Stop 02/18/19 at 13:06; Status DC Fentanyl Citrate (Fentanyl 2ml Vial) 100 mcg STK-MED ONCE .ROUTE ; Start 02/18/19 at 13:05; Stop 02/18/19 at 13:06; Status DC Lidocaine/ Epinephrine (LIDOCAINE 1%-EPI 1:100,000 Multi-Dose) 20 ml STK-MED ONCE .ROUTE ; Start 02/18/19 at 13:16; Stop 02/18/19 at 13:16; Status DC Midazolam HCl (Versed) 2 mg 1X ONCE IV Last administered on 02/18/19at 14:06; Start 02/18/19 at 14:00; Stop 02/18/19 at 14:03; Status DC Fentanyl Citrate (Fentanyl 2ml Vial) 100 mcg 1X ONCE IV Last administered on 02/18/19at 14:06; Start 02/18/19 at 14:00; Stop 02/18/19 at 14:03; Status DC Lidocaine/ Epinephrine (LIDOCAINE 1%-EPI 1:100,000 Multi-Dose) 20 ml 1X ONCE SQ Last administered on 02/18/19at 14:06; Start 02/18/19 at 14:00; Stop 02/18/19 at 14:03; Status DC Iohexol (Omnipaque 240 Mg/ml) 50 ml 1X ONCE IV ; Start 02/18/19 at 14:00; Stop 02/18/19 at 14:07; Status DC Amoxicillin/ Clavulanate Potassium (Augmentin 500/ 125mg) 1 tab QHS PO ; Start 02/18/19 at 21:00; Stop 02/18/19 at 17:20; Status DC Sodium Chloride 1,000 ml @ 1,000 mls/hr Q1H PRN IV hypotension; Start 02/19/19 at 08:53; Stop 02/19/19 at 14:52; Status DC Albumin Human 200 ml @ 200 mls/hr 1X PRN PRN IV Hypotension; Start 02/19/19 at 09:00; Stop 02/19/19 at 14:59; Status DC Sodium Chloride (Normal Saline Flush) 10 ml 1X PRN PRN IV AP catheter pack; Start 02/19/19 at 09:00; Stop 02/20/19 at 08:59; Status DC Sodium Chloride (Normal Saline Flush) 10 ml 1X PRN PRN IV TANK TERMINAL GAUGER catheter pack; Start 02/19/19 at 09:00; Stop 02/20/19 at 08:59; Status DC Sodium Chloride 1,000 ml @ 400 mls/hr Q2H30M PRN IV PATENCY; Start 02/19/19 at 08:53; Stop 02/19/19 at 20:52; Status DC Info (PHARMACY MONITORING -- do not chart) 1 each PRN DAILY PRN MC SEE COMMENTS; Start 02/19/19 at 09:00; Status UNV Info (PHARMACY MONITORING -- do not chart) 1 each PRN DAILY PRN MC SEE COMMENTS; Start 02/19/19 at 09:00; Stop 02/21/19 at 14:29; Status DC Barium Sulfate (Varibar Thin Liquid Apple) 148 gm 1X ONCE PO Last administered on 02/19/19at 14:39; Start 02/19/19 at 14:15; Stop 02/19/19 at 14:16; Status DC Insulin Human Lispro (HumaLOG) 0-5 UNITS QIDACHS SQ Last administered on 02/24/19at 07:54; Start 02/19/19 at 16:30 Sodium Chloride 1,000 ml @ 1,000 mls/hr Q1H PRN IV hypotension; Start 02/21/19 at 07:14; Stop 02/21/19 at 13:13; Status DC Albumin Human 200 ml @ 200 mls/hr 1X PRN PRN IV Hypotension; Start 02/21/19 at 07:15; Stop 02/21/19 at 13:14; Status DC Acetaminophen (Tylenol) 500 mg 1X PRN PRN PO MILD PAIN / TEMP Last administered on 02/21/19at 20:09; Start 02/21/19 at 07:15; Stop 02/22/19 at 07:14; Status DC Diphenhydramine HCl (Benadryl) 25 mg 1X PRN PRN IV ITCHING; Start 02/21/19 at 07:15; Stop 02/22/19 at 07:14; Status DC Diphenhydramine HCl (Benadryl) 25 mg 1X PRN PRN IV ITCHING; Start 02/21/19 at 07:15; Stop 02/22/19 at 07:14; Status DC Sodium Chloride (Normal Saline Flush) 10 ml 1X PRN PRN IV AP catheter pack; Start 02/21/19 at 07:15; Stop 02/22/19 at 07:14; Status DC Sodium Chloride (Normal Saline Flush) 10 ml 1X PRN PRN IV TANK TERMINAL GAUGER catheter pack; Start 02/21/19 at 07:15; Stop 02/22/19 at 07:14; Status DC Sodium Chloride 1,000 ml @ 400 mls/hr Q2H30M PRN IV PATENCY; Start 02/21/19 at 07:14; Stop 02/21/19 at 19:13; Status DC Info (PHARMACY MONITORING -- do not chart) 1 each PRN DAILY PRN MC SEE COMMENTS; Start 02/21/19 at 07:15 Insulin Human Lispro (HumaLOG) 10 units 1X ONCE SQ Last administered on 02/22/19at 17:24; Start 02/22/19 at 17:15; Stop 02/22/19 at 17:16; Status DC Sodium Chloride 1,000 ml @ 1,000 mls/hr Q1H PRN IV hypotension; Start 02/24/19 at 07:43; Stop 02/24/19 at 13:42 Albumin Human 200 ml @ 200 mls/hr 1X PRN PRN IV Hypotension; Start 02/24/19 at 07:45; Stop 02/24/19 at 13:44 Sodium Chloride (Normal Saline Flush) 10 ml 1X PRN PRN IV AP catheter pack; Start 02/24/19 at 07:45; Stop 02/25/19 at 07:44 Sodium Chloride (Normal Saline Flush) 10 ml 1X PRN PRN IV TANK TERMINAL GAUGER catheter pack; Start 02/24/19 at 07:45; Stop 02/25/19 at 07:44 Sodium Chloride 1,000 ml @ 400 mls/hr Q2H30M PRN IV PATENCY; Start 02/24/19 at 07:43; Stop 02/24/19 at 19:42 Info (PHARMACY MONITORING -- do not chart) 1 each PRN DAILY PRN MC SEE COMMENTS; Start 02/24/19 at 07:45; Status UNV Info (PHARMACY MONITORING -- do not chart) 1 each PRN DAILY PRN MC SEE COMMENTS; Start 02/24/19 at 07:45 Active Scripts Active Reported Metformin Hcl 500 Mg Tablet 500 Mg PO BIDWMEALS Vitals/I & O Vital Sign - Last 24 Hours 02/23/19 02/23/19 02/23/19 02/23/19 11:02 15:30 19:15 20:00 Temp 97.8 97.7 98.1 97.8 97.7 98.1 Pulse 96 97 82 Resp 18 18 16 B/P (MAP) 129/71 (90) 133/80 (97) 139/70 (93) Pulse Ox 100 95 96 O2 Delivery Room Air Room Air Room Air Room Air 02/23/19 02/24/19 02/24/19 02/24/19 23:15 03:15 07:00 08:00 Temp 97.7 98.4 98.6 97.7 98.4 98.6 Pulse 85 90 87 Resp 16 16 18 B/P (MAP) 140/74 (96) 133/83 (100) 127/73 (91) Pulse Ox 94 93 93 O2 Delivery Room Air Room Air Room Air Room Air Intake and Output 02/23/19 02/23/19 02/24/19 14:59 22:59 06:59 Intake Total 460 ml 300 ml 250 ml Output Total 300 ml 200 ml Balance 460 ml 0 ml 50 ml CITLALLI GONZALEZ MD Feb 24, 2019 10:18
--- NOTE | 2019-02-24 10:46 | PDOC ---
SUBJECTIVE ROS Seen on HD , tolerating well OBJECTIVE Vital Signs Vital Signs Date Time Temp Pulse Resp B/P (MAP) Pulse Ox O2 Delivery O2 Flow Rate FiO2 02/24/19 08:00 Room Air 02/24/19 07:00 98.6 87 18 127/73 (91) 93 98.6 I & 0 Intake and Output 02/24/19 07:00 Intake Total 1010 ml Output Total 500 ml Balance 510 ml Intake Oral 1010 ml Output Urine Total 500 ml # Voids 4 # Bowel Movements 2 PHYSICAL EXAM Physical Exam GENERAL: NAD HEENT: OM moist NECK: Supple. LUNGS: Improved aeration, nonlabored. HEART: S1 and S2. ABDOMEN: Nondistended, soft, EXTREMITIES: No gross edema SKIN: No rash. NEUROLOGIC: Alert and oriented x 3 DIAGNOSIS/ASSESSMENT Assessment & Plan ? New Onset ESRD- has been on HD MWF , as no renal recovery noted Seen on HD , tolerating well, continue as ordered, Kade Dawson Awaiting OP chair time Access- Tunneled HDC SARAH - suspected ATN at presentation BUN/CR at presentation 200/20 , No baseline available Was initiated on HD ,No improvement in renal function Anemia- On BRAD per protocol HTN - stable DM II- per primary DKA- at presntation Resolved COMMENT/RELEVANT DATA Meds Current Medications Medications (Trade) Dose Ordered Sig/Ismael Start Time Stop Time Status Last Admin Dose Admin Acetaminophen (Tylenol) 500 mg 1X PRN PRN 02/21/19 07:15 02/22/19 07:14 DC 02/21/19 20:09 500 MG Albumin Human 200 ml @ 200 mls/hr 1X PRN PRN 02/24/19 07:45 02/24/19 13:44 Albuterol Sulfate (Ventolin Neb Soln) 2.5 mg 1X ONCE 02/13/19 01:00 02/13/19 01:01 DC 02/13/19 01:01 2.5 MG Amino Acids/ Glycerin/ Electrolytes 1,000 ml @ 80 mls/hr [id number] 02/17/19 15:15 02/22/19 17:26 DC 02/22/19 05:57 80 MLS/HR Amoxicillin/ Clavulanate Potassium (Augmentin 500/ 125mg) 1 tab QHS 02/18/19 21:00 02/18/19 17:20 DC Aspirin (Aspirin Rectal Supp) 300 mg 1X ONCE 02/11/19 20:00 02/11/19 20:03 DC 02/11/19 20:21 300 MG Aspirin (Children'S Aspirin) 81 mg [id number] 02/17/19 12:30 02/23/19 08:07 81 MG Atorvastatin Calcium (Lipitor) 20 mg QHS 02/17/19 21:00 02/23/19 20:55 20 MG Azithromycin 250 ml @ 250 mls/hr 1X ONCE 02/13/19 05:00 02/12/19 11:37 DC Azithromycin 500 mg/Sodium Chloride 250 ml @ 250 mls/hr 1X ONCE 02/14/19 05:00 02/14/19 05:59 DC 02/14/19 04:32 250 MLS/HR Barium Sulfate (Varibar Thin Liquid Apple) 148 gm 1X ONCE 02/19/19 14:15 02/19/19 14:16 DC 02/19/19 14:39 148 GM Calcium Gluconate (Calcium Gluconate) 1,000 mg 1X ONCE 02/11/19 21:00 02/11/19 21:01 DC 02/11/19 21:29 1,000 MG Darbepoetin Michael (ARANESP for DIALYSIS PTS) 60 mcg [id number] 02/17/19 21:00 02/17/19 19:41 60 MCG Dextrose (Dextrose 50%-Water Syringe) 12.5 gm PRN Q15MIN PRN 02/12/19 20:45 02/13/19 11:44 12.5 GM Dextrose/Sodium Chloride 1,000 ml @ 250 mls/hr Q4H 02/12/19 01:32 02/12/19 21:05 DC 02/12/19 15:39 250 MLS/HR Diphenhydramine HCl (Benadryl) 25 mg 1X PRN PRN 02/21/19 07:15 02/22/19 07:14 DC Fentanyl Citrate (Fentanyl 2ml Vial) 100 mcg 1X ONCE 02/18/19 14:00 02/18/19 14:03 DC 02/18/19 14:06 100 MCG Hydralazine HCl (Apresoline Inj) 10 mg PRN Q4HRS PRN 02/12/19 20:45 02/16/19 21:14 10 MG Info (PHARMACY MONITORING -- do not chart) 1 each PRN DAILY PRN 02/24/19 07:45 Insulin Human Lispro (HumaLOG) 10 units 1X ONCE 02/22/19 17:15 02/22/19 17:16 DC 02/22/19 17:24 10 UNITS Insulin Human Regular 150 ml @ 0 mls/hr CONT PRN PRN 02/11/19 20:15 02/11/19 23:00 DC 02/11/19 20:21 1 MLS/HR Insulin Human Regular (HumuLIN R VIAL) 9 unit 1X ONCE 02/11/19 20:00 02/11/19 20:01 DC 02/11/19 20:21 9 UNIT Insulin Human Regular 150 unit/ Sodium Chloride 151.5 ml @ 0 mls/hr CONT PRN PRN 02/11/19 20:00 02/23/19 17:03 DC 02/13/19 06:10 7 MLS/HR Iohexol (Omnipaque 240 Mg/ml) 50 ml 1X ONCE 02/18/19 14:00 02/18/19 14:07 DC Lactobacillus Rhamnosus (Culturelle) 1 cap BID 02/17/19 21:00 02/23/19 20:55 1 CAP Lidocaine/ Epinephrine (LIDOCAINE 1%-EPI 1:100,000 Multi-Dose) 20 ml 1X ONCE 02/18/19 14:00 02/18/19 14:03 DC 02/18/19 14:06 8 ML Lidocaine/Sodium Bicarbonate (Buffered Lidocaine 1%) 3 ml 1X ONCE 02/11/19 23:00 02/11/19 23:01 DC 02/11/19 23:10 4 ML Lorazepam (Ativan Inj) 1 mg PRN Q10MIN PRN 02/12/19 03:00 Magnesium Sulfate/ Dextrose 100 ml @ 25 mls/hr PRN DAILY PRN 02/12/19 09:00 Midazolam HCl (Versed) 2 mg 1X ONCE 02/18/19 14:00 02/18/19 14:03 DC 02/18/19 14:06 1 MG Morphine Sulfate (Morphine Sulfate) 2 mg PRN Q4HRS PRN 02/15/19 21:30 02/22/19 05:11 2 MG Ondansetron HCl (Zofran) 4 mg PRN Q6HRS PRN 02/13/19 03:30 02/15/19 06:08 4 MG Piperacillin Sod/ Tazobactam Sod 2.25 gm/Sodium Chloride 50 ml @ 100 mls/hr Q8HRS 02/12/19 01:00 02/17/19 13:26 DC 02/17/19 05:59 100 MLS/HR Piperacillin Sod/ Tazobactam Sod 3.375 gm/Sodium Chloride 50 ml @ 100 mls/hr Q6HRS 02/12/19 01:00 UNV Potassium Chloride/Water 50 ml @ 25 mls/hr Q2H 02/12/19 16:00 02/12/19 19:59 DC 02/12/19 18:18 25 MLS/HR Scopolamine (Transderm-Scop) 1 patch 1X ONCE 02/13/19 11:45 02/13/19 11:46 DC 02/13/19 13:44 1 PATCH Sodium Chloride 1,000 ml @ 400 mls/hr Q2H30M PRN 02/24/19 07:43 02/24/19 19:42 Sodium Chloride (Normal Saline Flush) 10 ml 1X PRN PRN 02/24/19 07:45 02/25/19 07:44 Lab Laboratory Tests Test 02/23/19 11:36 02/23/19 16:20 02/23/19 20:56 02/24/19 04:10 Glucose (Fingerstick) 256 mg/dL (70-99) 303 mg/dL (70-99) 266 mg/dL (70-99) White Blood Count 7.2 x10^3/uL (4.0-11.0) Red Blood Count 2.79 x10^6/uL (4.30-5.70) Hemoglobin 9.3 g/dL (13.0-17.5) Hematocrit 26.4 % (39.0-53.0) Mean Corpuscular Volume 95 fL (79-100) Mean Corpuscular Hemoglobin 33 pg (25-35) Mean Corpuscular Hemoglobin Concent 35 g/dL (31-37) Red Cell Distribution Width 12.5 % (11.5-14.5) Platelet Count 260 x10^3/uL (140-400) Neutrophils (%) (Auto) 78 % (31-73) Lymphocytes (%) (Auto) 6 % (24-48) Monocytes (%) (Auto) 12 % (0-9) Eosinophils (%) (Auto) 3 % (0-3) Basophils (%) (Auto) 1 % (0-3) Neutrophils # (Auto) 5.6 x10^3/uL (1.8-7.7) Lymphocytes # (Auto) 0.4 x10^3/uL (1.0-4.8) Monocytes # (Auto) 0.9 x10^3/uL (0.0-1.1) Eosinophils # (Auto) 0.2 x10^3/uL (0.0-0.7) Basophils # (Auto) 0.1 x10^3/uL (0.0-0.2) Sodium Level 135 mmol/L (136-145) Potassium Level 3.8 mmol/L (3.5-5.1) Chloride Level 96 mmol/L (98-107) Carbon Dioxide Level 24 mmol/L (21-32) Anion Gap 15 (6-14) Blood Urea Nitrogen 57 mg/dL (8-26) Creatinine 5.7 mg/dL (0.7-1.3) Estimated GFR (Cockcroft-Gault) 10.6 Glucose Level 282 mg/dL (70-99) Calcium Level 8.9 mg/dL (8.5-10.1) Test 02/24/19 07:14 Glucose (Fingerstick) 277 mg/dL (70-99) Results All relevant outside records, renal labs, imaging studies, telemetry/EKG's were reviewed. ROHIT KNOWLES MD Feb 24, 2019 10:46
--- NOTE | 2019-02-24 11:02 | NUR ---
SS following up with discharge planning. Pt is self pay pt. [facility] following for self pay status. Pt is from home and is currently on room air. Pt may need hemodialysis chair time at discharge. SS currently awaiting final determination on status from nephrology. SS will continue to follow for discharge planning.
--- NOTE | 2019-02-24 12:19 | NUR ---
Patient return from dialysis per bed. Patient alert and oriented times four. Patient family at bedside. Side rails up times two, call light at hand. Continue cares and monitor. Patient blood sugar 138, no insulin for noon meal per SSI. Patient verb. understanding POC.
[2019-02-24] MEDS: ASPIRIN CHEWABLE 81 MG TABLET. PO SCH (13:16)
[2019-02-24] MEDS: LACTOBACILLUS RHAMNOSUS GG 1 CAPSULE. PO SCH ×2 (13:16→19:33)
--- NOTE | 2019-02-24 13:39 | PDOC ---
PROGRESS NOTES Objective Objective Vital Signs Date Time Temp Pulse Resp B/P (MAP) Pulse Ox O2 Delivery O2 Flow Rate FiO2 02/24/19 12:21 95 137/79 (98) 02/24/19 11:00 98.5 18 94 Room Air 98.5 02/22/19 08:00 2.0 Intake and Output 02/24/19 07:00 Intake Total 1010 ml Output Total 500 ml Balance 510 ml Intake Oral 1010 ml Output Urine Total 500 ml # Voids 4 # Bowel Movements 2 Assessment Assessment Problems Medical Problems: (1) DKA (diabetic ketoacidoses) Status: Acute (2) Elevated troponin Status: Acute (3) Renal failure Status: Acute Comment Labs Laboratory Tests Test 02/22/19 16:51 02/22/19 21:07 02/23/19 07:35 02/23/19 09:27 Glucose (Fingerstick) 429 mg/dL (70-99) 206 mg/dL (70-99) 265 mg/dL (70-99) White Blood Count 8.6 x10^3/uL (4.0-11.0) Red Blood Count 2.97 x10^6/uL (4.30-5.70) Hemoglobin 9.8 g/dL (13.0-17.5) Hematocrit 28.2 % (39.0-53.0) Mean Corpuscular Volume 95 fL (79-100) Mean Corpuscular Hemoglobin 33 pg (25-35) Mean Corpuscular Hemoglobin Concent 35 g/dL (31-37) Red Cell Distribution Width 12.7 % (11.5-14.5) Platelet Count 284 x10^3/uL (140-400) Neutrophils (%) (Auto) 81 % (31-73) Lymphocytes (%) (Auto) 6 % (24-48) Monocytes (%) (Auto) 11 % (0-9) Eosinophils (%) (Auto) 1 % (0-3) Basophils (%) (Auto) 1 % (0-3) Neutrophils # (Auto) 7.0 x10^3/uL (1.8-7.7) Lymphocytes # (Auto) 0.5 x10^3/uL (1.0-4.8) Monocytes # (Auto) 0.9 x10^3/uL (0.0-1.1) Eosinophils # (Auto) 0.1 x10^3/uL (0.0-0.7) Basophils # (Auto) 0.1 x10^3/uL (0.0-0.2) Sodium Level 135 mmol/L (136-145) Potassium Level 3.9 mmol/L (3.5-5.1) Chloride Level 97 mmol/L (98-107) Carbon Dioxide Level 26 mmol/L (21-32) Anion Gap 12 (6-14) Blood Urea Nitrogen 51 mg/dL (8-26) Creatinine 5.2 mg/dL (0.7-1.3) Estimated GFR (Cockcroft-Gault) 11.8 Glucose Level 268 mg/dL (70-99) Calcium Level 9.1 mg/dL (8.5-10.1) Test 02/23/19 11:36 02/23/19 16:20 02/23/19 20:56 02/24/19 04:10 Glucose (Fingerstick) 256 mg/dL (70-99) 303 mg/dL (70-99) 266 mg/dL (70-99) White Blood Count 7.2 x10^3/uL (4.0-11.0) Red Blood Count 2.79 x10^6/uL (4.30-5.70) Hemoglobin 9.3 g/dL (13.0-17.5) Hematocrit 26.4 % (39.0-53.0) Mean Corpuscular Volume 95 fL (79-100) Mean Corpuscular Hemoglobin 33 pg (25-35) Mean Corpuscular Hemoglobin Concent 35 g/dL (31-37) Red Cell Distribution Width 12.5 % (11.5-14.5) Platelet Count 260 x10^3/uL (140-400) Neutrophils (%) (Auto) 78 % (31-73) Lymphocytes (%) (Auto) 6 % (24-48) Monocytes (%) (Auto) 12 % (0-9) Eosinophils (%) (Auto) 3 % (0-3) Basophils (%) (Auto) 1 % (0-3) Neutrophils # (Auto) 5.6 x10^3/uL (1.8-7.7) Lymphocytes # (Auto) 0.4 x10^3/uL (1.0-4.8) Monocytes # (Auto) 0.9 x10^3/uL (0.0-1.1) Eosinophils # (Auto) 0.2 x10^3/uL (0.0-0.7) Basophils # (Auto) 0.1 x10^3/uL (0.0-0.2) Sodium Level 135 mmol/L (136-145) Potassium Level 3.8 mmol/L (3.5-5.1) Chloride Level 96 mmol/L (98-107) Carbon Dioxide Level 24 mmol/L (21-32) Anion Gap 15 (6-14) Blood Urea Nitrogen 57 mg/dL (8-26) Creatinine 5.7 mg/dL (0.7-1.3) Estimated GFR (Cockcroft-Gault) 10.6 Glucose Level 282 mg/dL (70-99) Calcium Level 8.9 mg/dL (8.5-10.1) Test 02/24/19 07:14 02/24/19 11:59 Glucose (Fingerstick) 277 mg/dL (70-99) 138 mg/dL (70-99) Laboratory Tests Test 02/23/19 16:20 02/23/19 20:56 02/24/19 04:10 02/24/19 07:14 Glucose (Fingerstick) 303 mg/dL (70-99) 266 mg/dL (70-99) 277 mg/dL (70-99) White Blood Count 7.2 x10^3/uL (4.0-11.0) Red Blood Count 2.79 x10^6/uL (4.30-5.70) Hemoglobin 9.3 g/dL (13.0-17.5) Hematocrit 26.4 % (39.0-53.0) Mean Corpuscular Volume 95 fL (79-100) Mean Corpuscular Hemoglobin 33 pg (25-35) Mean Corpuscular Hemoglobin Concent 35 g/dL (31-37) Red Cell Distribution Width 12.5 % (11.5-14.5) Platelet Count 260 x10^3/uL (140-400) Neutrophils (%) (Auto) 78 % (31-73) Lymphocytes (%) (Auto) 6 % (24-48) Monocytes (%) (Auto) 12 % (0-9) Eosinophils (%) (Auto) 3 % (0-3) Basophils (%) (Auto) 1 % (0-3) Neutrophils # (Auto) 5.6 x10^3/uL (1.8-7.7) Lymphocytes # (Auto) 0.4 x10^3/uL (1.0-4.8) Monocytes # (Auto) 0.9 x10^3/uL (0.0-1.1) Eosinophils # (Auto) 0.2 x10^3/uL (0.0-0.7) Basophils # (Auto) 0.1 x10^3/uL (0.0-0.2) Sodium Level 135 mmol/L (136-145) Potassium Level 3.8 mmol/L (3.5-5.1) Chloride Level 96 mmol/L (98-107) Carbon Dioxide Level 24 mmol/L (21-32) Anion Gap 15 (6-14) Blood Urea Nitrogen 57 mg/dL (8-26) Creatinine 5.7 mg/dL (0.7-1.3) Estimated GFR (Cockcroft-Gault) 10.6 Glucose Level 282 mg/dL (70-99) Calcium Level 8.9 mg/dL (8.5-10.1) Test 02/24/19 11:59 Glucose (Fingerstick) 138 mg/dL (70-99) Microbiology 02/12/19 Throat Culture - Final, Complete 02/12/19 - Final, Complete 02/12/19 Blood Culture - Final, Complete NO GROWTH AFTER 5 DAYS 02/11/19 Urine Culture - Final, Complete 02/11/19 Urine Culture Result 1 (SABINE) - Final, Complete Medications Current Medications Sodium Chloride 1,000 ml @ 1,000 mls/hr 1X ONCE IV Last administered on 02/11/19at 19:19; Start 02/11/19 at 19:15; Stop 02/11/19 at 20:14; Status DC Sodium Chloride 1,000 ml @ 1,000 mls/hr 1X ONCE IV Last administered on 02/11/19at 20:21; Start 02/11/19 at 20:00; Stop 02/11/19 at 20:59; Status DC Insulin Human Regular (HumuLIN R VIAL) 9 unit 1X ONCE SQ Last administered on 02/11/19at 20:21; Start 02/11/19 at 20:00; Stop 02/11/19 at 20:01; Status DC Insulin Human Regular 150 unit/ Sodium Chloride 151.5 ml @ 0 mls/hr CONT PRN PRN IV PER PROTOCOL Last administered on 02/13/19at 06:10; Start 02/11/19 at 20:00; Stop 02/23/19 at 17:03; Status DC Potassium Chloride/Water 100 ml @ 100 mls/hr PRN Q1HR PRN IV SEE COMMENTS; Start 02/11/19 at 20:00 Potassium Chloride/Water 100 ml @ 100 mls/hr PRN Q1HR PRN IV SEE COMMENTS; Start 02/11/19 at 20:00 Potassium Chloride/Water 100 ml @ 100 mls/hr PRN Q1HR PRN IV SEE COMMENTS; Start 02/11/19 at 20:00 Magnesium Sulfate/ Dextrose 100 ml @ 25 mls/hr PRN DAILY PRN IV SEE COMMENTS; Start 02/12/19 at 09:00 Aspirin (Aspirin Rectal Supp) 300 mg 1X ONCE NC Last administered on 02/11/19at 20:21; Start 02/11/19 at 20:00; Stop 02/11/19 at 20:03; Status DC Insulin Human Regular 150 ml @ 0 mls/hr CONT PRN PRN IV PER PROTOCOL Last administered on 02/11/19at 20:21; Start 02/11/19 at 20:15; Stop 02/11/19 at 23:00; Status DC Ondansetron HCl (Zofran) 4 mg PRN Q8HRS PRN IV NAUSEA/VOMITING; Start 02/11/19 at 20:30; Stop 02/12/19 at 20:29; Status DC Calcium Gluconate (Calcium Gluconate) 1,000 mg 1X ONCE IVP Last administered on 02/11/19at 21:29; Start 02/11/19 at 21:00; Stop 02/11/19 at 21:01; Status DC Sodium Chloride 1,000 ml @ 500 mls/hr 1X ONCE IV Last administered on 02/11/19at 21:29; Start 02/11/19 at 21:30; Stop 02/11/19 at 23:29; Status DC Lidocaine/Sodium Bicarbonate (Buffered Lidocaine 1%) 3 ml STK-MED ONCE .ROUTE ; Start 02/11/19 at 22:37; Stop 02/11/19 at 22:37; Status DC Lidocaine/Sodium Bicarbonate (Buffered Lidocaine 1%) 3 ml 1X ONCE IJ Last administered on 02/11/19at 23:10; Start 02/11/19 at 23:00; Stop 02/11/19 at 23:01; Status DC Sodium Chloride 1,000 ml @ 1,000 mls/hr Q1H PRN IV hypotension; Start 02/11/19 at 23:23; Stop 02/12/19 at 05:22; Status DC Sodium Chloride 1,000 ml @ 400 mls/hr Q2H30M PRN IV PATENCY; Start 02/11/19 at 23:23; Stop 02/12/19 at 11:22; Status DC Info (PHARMACY MONITORING -- do not chart) 1 each PRN DAILY PRN MC SEE COMMENTS; Start 02/11/19 at 23:30; Status UNV Info (PHARMACY MONITORING -- do not chart) 1 each PRN DAILY PRN MC SEE COMMENTS; Start 02/11/19 at 23:30; Stop 02/12/19 at 18:07; Status DC Sodium Chloride 1,000 ml @ 250 mls/hr Q4H IV Last administered on 02/12/19at 00:20; Start 02/12/19 at 00:14; Stop 02/12/19 at 01:32; Status DC Piperacillin Sod/ Tazobactam Sod 3.375 gm/Sodium Chloride 50 ml @ 100 mls/hr Q6HRS IV ; Start 02/12/19 at 01:00; Status UNV Piperacillin Sod/ Tazobactam Sod 2.25 gm/Sodium Chloride 50 ml @ 100 mls/hr Q8HRS IV Last administered on 02/17/19at 05:59; Start 02/12/19 at 01:00; Stop 02/17/19 at 13:26; Status DC Dextrose/Sodium Chloride 1,000 ml @ 250 mls/hr Q4H IV Last administered on 02/12/19at 15:39; Start 02/12/19 at 01:32; Stop 02/12/19 at 21:05; Status DC Lorazepam (Ativan Inj) 1 mg PRN Q10MIN PRN IV SEIZURE; Start 02/12/19 at 03:00 Sodium Chloride 250 ml @ 250 mls/hr 1X ONCE IV Last administered on 02/12/19at 05:25; Start 02/12/19 at 05:00; Stop 02/12/19 at 05:59; Status DC Azithromycin 500 mg/Sodium Chloride 250 ml @ 250 mls/hr 1X ONCE IV Last administered on 02/12/19at 05:25; Start 02/12/19 at 05:00; Stop 02/12/19 at 05:59; Status DC Potassium Chloride/Water 50 ml @ 25 mls/hr Q2H IV Last administered on 02/12/19at 10:06; Start 02/12/19 at 08:00; Stop 02/12/19 at 11:59; Status DC Azithromycin 250 ml @ 250 mls/hr 1X ONCE IV ; Start 02/13/19 at 05:00; Stop 02/12/19 at 11:37; Status DC Azithromycin 500 mg/Sodium Chloride 250 ml @ 250 mls/hr 1X ONCE IV Last administered on 02/13/19at 04:33; Start 02/13/19 at 05:00; Stop 02/13/19 at 05:59; Status DC Potassium Chloride/Water 50 ml @ 25 mls/hr Q2H IV Last administered on 02/12/19at 18:18; Start 02/12/19 at 16:00; Stop 02/12/19 at 19:59; Status DC Sodium Chloride 1,000 ml @ 1,000 mls/hr Q1H PRN IV hypotension; Start 02/12/19 at 15:00; Stop 02/12/19 at 20:59; Status DC Sodium Chloride (Normal Saline Flush) 10 ml 1X PRN PRN IV AP catheter pack; Start 02/12/19 at 15:00; Stop 02/13/19 at 14:17; Status DC Sodium Chloride (Normal Saline Flush) 10 ml 1X PRN PRN IV BANK OFFICER catheter pack; Start 02/12/19 at 15:00; Stop 02/13/19 at 14:17; Status DC Sodium Chloride 1,000 ml @ 400 mls/hr Q2H30M PRN IV PATENCY; Start 02/12/19 at 15:00; Stop 02/13/19 at 02:59; Status DC Info (PHARMACY MONITORING -- do not chart) 1 each PRN DAILY PRN MC SEE COMMENTS; Start 02/12/19 at 18:00; Stop 02/12/19 at 18:07; Status DC Info (PHARMACY MONITORING -- do not chart) 1 each PRN DAILY PRN MC SEE CO MMENTS; Start 02/12/19 at 18:00; Status Cancel Sodium Chloride 1,000 ml @ 75 mls/hr [id number] IV Last administered on 02/15/19at 22:35; Start 02/12/19 at 20:45; Stop 02/16/19 at 13:48; Status DC Dextrose (Dextrose 50%-Water Syringe) 12.5 gm PRN Q15MIN PRN IV SEE COMMENTS Last administered on 02/13/19at 11:44; Start 02/12/19 at 20:45 Hydralazine HCl (Apresoline Inj) 10 mg PRN Q4HRS PRN IVP ELEVATED BP, SEE COMMENTS Last administered on 02/16/19at 21:14; Start 02/12/19 at 20:45 Insulin Human Lispro (HumaLOG) 0-5 UNITS Q6HRS SQ Last administered on 02/19/19at 05:57; Start 02/13/19 at 00:00; Stop 02/19/19 at 15:54; Status DC Albuterol Sulfate (Ventolin Neb Soln) 2.5 mg 1X ONCE NEB Last administered on 02/13/19at 01:01; Start 02/13/19 at 01:00; Stop 02/13/19 at 01:01; Status DC Ondansetron HCl (Zofran) 4 mg PRN Q6HRS PRN IV NAUSEA/VOMITING Last administered on 02/15/19at 06:08; Start 02/13/19 at 03:30 Scopolamine (Transderm-Scop) 1 patch 1X ONCE TD Last administered on 02/13/19at 13:44; Start 02/13/19 at 11:45; Stop 02/13/19 at 11:46; Status DC Azithromycin 500 mg/Sodium Chloride 250 ml @ 250 mls/hr 1X ONCE IV Last administered on 02/14/19at 04:32; Start 02/14/19 at 05:00; Stop 02/14/19 at 05:59; Status DC Sodium Chloride 1,000 ml @ 1,000 mls/hr Q1H PRN IV hypotension; Start 02/14/19 at 11:09; Stop 02/14/19 at 17:08; Status DC Albumin Human 200 ml @ 200 mls/hr 1X PRN PRN IV Hypotension; Start 02/14/19 at 11:15; Stop 02/14/19 at 17:14; Status DC Sodium Chloride (Normal Saline Flush) 10 ml 1X PRN PRN IV AP catheter pack; Start 02/14/19 at 11:15; Stop 02/15/19 at 11:14; Status DC Sodium Chloride (Normal Saline Flush) 10 ml 1X PRN PRN IV BANK OFFICER catheter pack; Start 02/14/19 at 11:15; Stop 02/15/19 at 11:14; Status DC Sodium Chloride 1,000 ml @ 400 mls/hr Q2H30M PRN IV PATENCY; Start 02/14/19 at 11:09; Stop 02/14/19 at 23:08; Status DC Info (PHARMACY MONITORING -- do not chart) 1 each PRN DAILY PRN MC SEE COMMENTS; Start 02/14/19 at 11:15; Status UNV Info (PHARMACY MONITORING -- do not chart) 1 each PRN DAILY PRN MC SEE COMMENTS ; Start 02/14/19 at 11:15; Status UNV Morphine Sulfate (Morphine Sulfate) 2 mg PRN Q4HRS PRN IV PAIN Last administered on 02/22/19at 05:11; Start 02/15/19 at 21:30 Sodium Chloride 1,000 ml @ 50 mls/hr Q20H IV Last administered on 02/16/19at 18:29; Start 02/16/19 at 18:00; Stop 02/17/19 at 15:12; Status DC Sodium Chloride 1,000 ml @ 1,000 mls/hr Q1H PRN IV hypotension; Start 02/17/19 at 07:39; Stop 02/17/19 at 13:38; Status DC Diphenhydramine HCl (Benadryl) 25 mg 1X PRN PRN IV ITCHING; Start 02/17/19 at 07:45; Stop 02/18/19 at 07:44; Status DC Diphenhydramine HCl (Benadryl) 25 mg 1X PRN PRN IV ITCHING; Start 02/17/19 at 07:45; Stop 02/18/19 at 07:44; Status DC Sodium Chloride 1,000 ml @ 400 mls/hr Q2H30M PRN IV PATENCY; Start 02/17/19 at 07:39; Stop 02/17/19 at 19:38; Status DC Info (PHARMACY MONITORING -- do not chart) 1 each PRN DAILY PRN MC SEE COMMENTS; Start 02/17/19 at 07:45; Stop 02/21/19 at 14:29; Status DC Aspirin (Children'S Aspirin) 81 mg [id number] PO Last administered on 02/24/19at 13:16; Start 02/17/19 at 12:30 Atorvastatin Calcium (Lipitor) 20 mg QHS PO Last administered on 02/23/19at 20:55; Start 02/17/19 at 21:00 Darbepoetin Michael (ARANESP for DIALYSIS PTS) 60 mcg WEEKLYHS SQ Last administered on 02/17/19at 19:41; Start 02/17/19 at 21:00 Amoxicillin/ Clavulanate Potassium (Augmentin 500/ 125mg) 1 tab BID PO ; Start 02/17/19 at 21:00; Stop 02/18/19 at 16:44; Status DC Amino Acids/ Glycerin/ Electrolytes 1,000 ml @ 80 mls/hr [id number] IV Last administered on 02/22/19at 05:57; Start 02/17/19 at 15:15; Stop 02/22/19 at 17:26; Status DC Lactobacillus Rhamnosus (Culturelle) 1 cap BID PO Last administered on 9at 13:16; Start 02/17/19 at 21:00 Midazolam HCl (Versed) 2 mg STK-MED ONCE .ROUTE ; Start 02/18/19 at 13:05; Stop 02/18/19 at 13:06; Status DC Fentanyl Citrate (Fentanyl 2ml Vial) 100 mcg STK-MED ONCE .ROUTE ; Start 02/18/19 at 13:05; Stop 02/18/19 at 13:06; Status DC Lidocaine/ Epinephrine (LIDOCAINE 1%-EPI 1:100,000 Multi-Dose) 20 ml STK-MED ONCE .ROUTE ; Start 02/18/19 at 13:16; Stop 02/18/19 at 13:16; Status DC Midazolam HCl (Versed) 2 mg 1X ONCE IV Last administered on 02/18/19at 14:06; Start 02/18/19 at 14:00; Stop 02/18/19 at 14:03; Status DC Fentanyl Citrate (Fentanyl 2ml Vial) 100 mcg 1X ONCE IV Last administered on 02/18/19at 14:06; Start 02/18/19 at 14:00; Stop 02/18/19 at 14:03; Status DC Lidocaine/ Epinephrine (LIDOCAINE 1%-EPI 1:100,000 Multi-Dose) 20 ml 1X ONCE SQ Last administered on 02/18/19at 14:06; Start 02/18/19 at 14:00; Stop 02/18/19 at 14:03; Status DC Iohexol (Omnipaque 240 Mg/ml) 50 ml 1X ONCE IV ; Start 02/18/19 at 14:00; Stop 02/18/19 at 14:07; Status DC Amoxicillin/ Clavulanate Potassium (Augmentin 500/ 125mg) 1 tab QHS PO ; Start 02/18/19 at 21:00; Stop 02/18/19 at 17:20; Status DC Sodium Chloride 1,000 ml @ 1,000 mls/hr Q1H PRN IV hypotension; Start 02/19/19 at 08:53; Stop 02/19/19 at 14:52; Status DC Albumin Human 200 ml @ 200 mls/hr 1X PRN PRN IV Hypotension; Start 02/19/19 at 09:00; Stop 02/19/19 at 14:59; Status DC Sodium Chloride (Normal Saline Flush) 10 ml 1X PRN PRN IV AP catheter pack; Start 02/19/19 at 09:00; Stop 02/20/19 at 08:59; Status DC Sodium Chloride (Normal Saline Flush) 10 ml 1X PRN PRN IV BANK OFFICER catheter pack; Start 02/19/19 at 09:00; Stop 02/20/19 at 08:59; Status DC Sodium Chloride 1,000 ml @ 400 mls/hr Q2H30M PRN IV PATENCY; Start 02/19/19 at 08:53; Stop 02/19/19 at 20:52; Status DC Info (PHARMACY MONITORING -- do not chart) 1 each PRN DAILY PRN MC SEE COMMENTS; Start 02/19/19 at 09:00; Status UNV Info (PHARMACY MONITORING -- do not chart) 1 each PRN DAILY PRN MC SEE COMMENTS; Start 02/19/19 at 09:00; Stop 02/21/19 at 14:29; Status DC Barium Sulfate (Varibar Thin Liquid Apple) 148 gm 1X ONCE PO Last administered on 02/19/19at 14:39; Start 02/19/19 at 14:15; Stop 02/19/19 at 14:16; Status DC Insulin Human Lispro (HumaLOG) 0-5 UNITS QIDACHS SQ Last administered on 02/24/19at 07:54; Start 02/19/19 at 16:30 Sodium Chloride 1,000 ml @ 1,000 mls/hr Q1H PRN IV hypotension; Start 02/21/19 at 07:14; Stop 02/21/19 at 13:13; Status DC Albumin Human 200 ml @ 200 mls/hr 1X PRN PRN IV Hypotension; Start 02/21/19 at 07:15; Stop 02/21/19 at 13:14; Status DC Acetaminophen (Tylenol) 500 mg 1X PRN PRN PO MILD PAIN / TEMP Last administered on 02/21/19at 20:09; Start 02/21/19 at 07:15; Stop 02/22/19 at 07:14; Status DC Diphenhydramine HCl (Benadryl) 25 mg 1X PRN PRN IV ITCHING; Start 02/21/19 at 07:15; Stop 02/22/19 at 07:14; Status DC Diphenhydramine HCl (Benadryl) 25 mg 1X PRN PRN IV ITCHING; Start 02/21/19 at 07:15; Stop 02/22/19 at 07:14; Status DC Sodium Chloride (Normal Saline Flush) 10 ml 1X PRN PRN IV AP catheter pack; Start 02/21/19 at 07:15; Stop 02/22/19 at 07:14; Status DC Sodium Chloride (Normal Saline Flush) 10 ml 1X PRN PRN IV BANK OFFICER catheter pack; Start 02/21/19 at 07:15; Stop 02/22/19 at 07:14; Status DC Sodium Chloride 1,000 ml @ 400 mls/hr Q2H30M PRN IV PATENCY; Start 02/21/19 at 07:14; Stop 02/21/19 at 19:13; Status DC Info (PHARMACY MONITORING -- do not chart) 1 each PRN DAILY PRN MC SEE COMMENTS; Start 02/21/19 at 07:15 Insulin Human Lispro (HumaLOG) 10 units 1X ONCE SQ Last administered on 02/22/19at 17:24; Start 02/22/19 at 17:15; Stop 02/22/19 at 17:16; Status DC Sodium Chloride 1,000 ml @ 1,000 mls/hr Q1H PRN IV hypotension; Start 02/24/19 at 07:43; Stop 02/24/19 at 13:42 Albumin Human 200 ml @ 200 mls/hr 1X PRN PRN IV Hypotension; Start 02/24/19 at 07:45; Stop 02/24/19 at 13:44 Sodium Chloride (Normal Saline Flush) 10 ml 1X PRN PRN IV AP catheter pack; Start 02/24/19 at 07:45; Stop 02/25/19 at 07:44 Sodium Chloride (Normal Saline Flush) 10 ml 1X PRN PRN IV BANK OFFICER catheter pack; Start 02/24/19 at 07:45; Stop 02/25/19 at 07:44 Sodium Chloride 1,000 ml @ 400 mls/hr Q2H30M PRN IV PATENCY; Start 02/24/19 at 07:43; Stop 02/24/19 at 19:42 Info (PHARMACY MONITORING -- do not chart) 1 each PRN DAILY PRN MC SEE COMMENTS; Start 02/24/19 at 07:45; Status UNV Info (PHARMACY MONITORING -- do not chart) 1 each PRN DAILY PRN MC SEE COMMENTS; Start 02/24/19 at 07:45 Active Scripts Active Reported Metformin Hcl 500 Mg Tablet 500 Mg PO BIDWMEALS Vitals/I & O Vital Sign - Last 24 Hours 02/23/19 02/23/19 02/23/19 02/23/19 15:30 19:15 20:00 23:15 Temp 97.7 98.1 97.7 97.7 98.1 97.7 Pulse 97 82 85 Resp 18 16 16 B/P (MAP) 133/80 (97) 139/70 (93) 140/74 (96) Pulse Ox 95 96 94 O2 Delivery Room Air Room Air Room Air Room Air 02/24/19 02/24/19 02/24/19 02/24/19 03:15 07:00 08:00 11:00 Temp 98.4 98.6 98.5 98.4 98.6 98.5 Pulse 90 87 89 Resp 16 18 18 B/P (MAP) 133/83 (100) 127/73 (91) 137/82 (100) Pulse Ox 93 93 94 O2 Delivery Room Air Room Air Room Air Room Air 02/24/19 12:21 Pulse 95 B/P (MAP) 137/79 (98) Intake and Output 02/23/19 02/23/19 02/24/19 15:00 23:00 07:00 Intake Total 460 ml 300 ml 250 ml Output Total 300 ml 200 ml Balance 460 ml 0 ml 50 ml MONIQUE SIERRA III DO Feb 24, 2019 13:39
--- NOTE | 2019-02-24 14:03 | PDOC ---
[facility] PROGRESS NOTE Chief Complaint Chief Complaint Unsteady Gait Acute DKA Altered mental status Seizure SARAH Hyperkalemia T2DM Leukocytosis Lactic acidosis Dysphagia History of Present Illness History of Present Illness 02/24/19 Pt seen and examined at bedside Pt is resting comfortably on HD CHUCKY RN 02/23/19 Pt seen/examined at bedside DW pt and his mom 02/22/19 Resting w/ NAD DW RN who said she is titrating off O2 02/21/19 Pt seen/examined in HD MRI indicates no significant findings DW 02/20/19 Pt seen/examined at bedside Pt returned from MRI of head, await results Pt has [place] to bsd Previous Days Notes per Dr. Howard 02/18/19: renal dose to po augmentin Off azithromycin, cultures negative, including group A strep continue to adjust insulin as needed 02/14/19 Pt seen and examined in ICU [place] to BSD Pt sitting up in chair and communicative Anion gap 17 (14, 17 today) DW RN DW family 02/13/19 Pt seen and examined in ICU Venti mask at 50% O2 Pt sitting up in bed marked improvement Anion gap trending down ( 02/17 OP HD WILL HAVE IR CONVERT TEMP TO TUNNELED HD CATHETER Vitals/I&O Vitals/I&O: Vital Signs Date Time Temp Pulse Resp B/P (MAP) Pulse Ox O2 Delivery O2 Flow Rate FiO2 02/24/19 12:21 95 137/79 (98) 02/24/19 11:00 98.5 18 94 Room Air 98.5 I & O 02/23/19 02/23/19 02/24/19 14:59 22:59 06:59 Intake Total 460 ml 300 ml 250 ml Output Total 300 ml 200 ml Balance 460 ml 0 ml 50 ml Physical Exam General: Alert, Oriented X3, Cooperative, No acute distress Heart: Regular rate, Normal S1, Other (distant heart tones) Lungs: Crackles Abdomen: Normal bowel sounds, Soft, No tenderness Extremities: No clubbing, No edema, Normal pulses Skin: No breakdown, No significant lesion Labs Labs: Laboratory Tests Test 02/23/19 16:20 02/23/19 20:56 02/24/19 04:10 02/24/19 07:14 Glucose (Fingerstick) 303 mg/dL (70-99) 266 mg/dL (70-99) 277 mg/dL (70-99) White Blood Count 7.2 x10^3/uL (4.0-11.0) Red Blood Count 2.79 x10^6/uL (4.30-5.70) Hemoglobin 9.3 g/dL (13.0-17.5) Hematocrit 26.4 % (39.0-53.0) Mean Corpuscular Volume 95 fL (79-100) Mean Corpuscular Hemoglobin 33 pg (25-35) Mean Corpuscular Hemoglobin Concent 35 g/dL (31-37) Red Cell Distribution Width 12.5 % (11.5-14.5) Platelet Count 260 x10^3/uL (140-400) Neutrophils (%) (Auto) 78 % (31-73) Lymphocytes (%) (Auto) 6 % (24-48) Monocytes (%) (Auto) 12 % (0-9) Eosinophils (%) (Auto) 3 % (0-3) Basophils (%) (Auto) 1 % (0-3) Neutrophils # (Auto) 5.6 x10^3/uL (1.8-7.7) Lymphocytes # (Auto) 0.4 x10^3/uL (1.0-4.8) Monocytes # (Auto) 0.9 x10^3/uL (0.0-1.1) Eosinophils # (Auto) 0.2 x10^3/uL (0.0-0.7) Basophils # (Auto) 0.1 x10^3/uL (0.0-0.2) Sodium Level 135 mmol/L (136-145) Potassium Level 3.8 mmol/L (3.5-5.1) Chloride Level 96 mmol/L (98-107) Carbon Dioxide Level 24 mmol/L (21-32) Anion Gap 15 (6-14) Blood Urea Nitrogen 57 mg/dL (8-26) Creatinine 5.7 mg/dL (0.7-1.3) Estimated GFR (Cockcroft-Gault) 10.6 Glucose Level 282 mg/dL (70-99) Calcium Level 8.9 mg/dL (8.5-10.1) Test 02/24/19 11:59 Glucose (Fingerstick) 138 mg/dL (70-99) Review of Systems Review of Systems: No change of vision No headaches Assessment and Plan Assessmemt and Plan Problems Medical Problems: (1) DKA (diabetic ketoacidoses) Status: Acute (2) Elevated troponin Status: Acute (3) Renal failure Status: Acute Assessment Unsteady Gait Acute DKA Altered mental status Seizure SARAH Hyperkalemia T2DM Leukocytosis Lactic acidosis Dysphagia Plan Await chair time When he has a chair time he will be D/C to home with his mom and sister DVT prophylaxis Home meds Labs PT/OT Full code Comment Review of Relevant I have reviewed the following items mindy (where applicable) has been applied. MONIQUE SIERRA III DO Feb 24, 2019 14:03
[2019-02-24] MEDS: ATORVASTATIN CALCIUM 20 MG TABLET PO SCH (19:33)
[2019-02-25] MEDS: DARBEPOETIN ALFA 60 MCG/0.3 ML DISP.SYRIN. SQ SCH (00:30)
[2019-02-25 03:29] VITALS: BP 136/70
[2019-02-25] MEDS: MORPHINE SULFATE 2 MG/ML VIAL. IV PRN (04:14)
[2019-02-25 04:31] LABS: BASO # 0.1 x10^3/uL (0.0-0.2); BASO % 1 % (0-3); EOS # 0.2 x10^3/uL (0.0-0.7); EOS % 3 % (0-3); HEMATOCRIT 26.7 % (39.0-53.0); HEMOGLOBIN 9.2 g/dL (13.0-17.5); LYMPH # 0.6 x10^3/uL (1.0-4.8); LYMPH % 8 % (24-48); MEAN CORPUSCULAR HEMOGLOBIN 33 pg (25-35); MEAN CORPUSCULAR HGB CONC 35 g/dL (31-37); MEAN CORPUSCULAR VOLUME 95 fL (79-100); MONO # 0.9 x10^3/uL (0.0-1.1); MONO % 14 % (0-9); NEUT # 4.9 x10^3/uL (1.8-7.7); NEUT % 74 % (31-73); PLATELET COUNT 231 x10^3/uL (140-400); RED BLOOD COUNT 2.81 x10^6/uL (4.30-5.70); RED CELL DISTRIBUTION WIDTH 12.7 % (11.5-14.5); WHITE BLOOD COUNT 6.7 x10^3/uL (4.0-11.0)
[2019-02-25 04:46] LABS: CALCIUM 8.8 mg/dL (8.5-10.1); CREATININE 3.8 mg/dL (0.7-1.3); GFR 16.9; POTASSIUM 4.1 mmol/L (3.5-5.1)
[2019-02-25 07:00] VITALS: BP 119/64
[2019-02-25] MEDS: LACTOBACILLUS RHAMNOSUS GG 1 CAPSULE. PO SCH ×2 (08:23→20:44)
[2019-02-25] MEDS: ASPIRIN CHEWABLE 81 MG TABLET. PO SCH (08:23)
[2019-02-25] MEDS: INSULIN LISPRO 300 UNITS/3 ML INSULN.PEN. SQ SCH ×4 (08:31→20:52)
--- NOTE | 2019-02-25 10:20 | PDOC ---
[facility] [facility] PROGRESS NOTE Chief Complaint Chief Complaint Unsteady Gait Acute DKA Altered mental status Seizure SARAH Hyperkalemia T2DM Leukocytosis Lactic acidosis Dysphagia History of Present Illness History of Present Illness 02/25/19 Pt seen and examined at bedside Pt in NAD and eating breakfast while sitting up comfortably DW RN 02/24/19 Pt seen and examined at bedside Pt is resting comfortably on HD CHUCKY RN 02/23/19 Pt seen/examined at bedside DW pt and his mom 02/22/19 Resting w/ NAD DW RN who said she is titrating off O2 02/21/19 Pt seen/examined in HD MRI indicates no significant findings DW 02/20/19 Pt seen/examined at bedside Pt returned from MRI of head, await results Pt has [place] to bsd Previous Days Notes per Dr. Howard 02/18/19: renal dose to po augmentin Off azithromycin, cultures negative, including group A strep continue to adjust insulin as needed 02/14/19 Pt seen and examined in ICU [place] to BSD Pt sitting up in chair and communicative Anion gap 17 (14, 17 today) DW RN DW family 02/13/19 Pt seen and examined in ICU Venti mask at 50% O2 Pt sitting up in bed marked improvement Anion gap trending down ( 02/17 OP HD WILL HAVE IR CONVERT TEMP TO TUNNELED HD CATHETER Vitals/I&O Vitals/I&O: Vital Signs Date Time Temp Pulse Resp B/P (MAP) Pulse Ox O2 Delivery O2 Flow Rate FiO2 02/25/19 07:00 98.7 92 18 119/64 (82) 95 Room Air 98.7 I & O 02/24/19 02/24/19 02/25/19 15:00 23:00 07:00 Intake Total 220 ml 340 ml Output Total 250 ml Balance 220 ml 90 ml Physical Exam General: Alert, Oriented X3, Cooperative, No acute distress Heart: Regular rate, Normal S1, Other (distant heart tones) Lungs: Crackles Abdomen: Normal bowel sounds, Soft, No tenderness Extremities: No clubbing, No edema, Normal pulses Skin: No breakdown, No significant lesion Labs Labs: Laboratory Tests Test 02/24/19 11:59 02/24/19 16:52 02/24/19 19:17 02/25/19 04:10 Glucose (Fingerstick) 138 mg/dL (70-99) 271 mg/dL (70-99) 285 mg/dL (70-99) White Blood Count 6.7 x10^3/uL (4.0-11.0) Red Blood Count 2.81 x10^6/uL (4.30-5.70) Hemoglobin 9.2 g/dL (13.0-17.5) Hematocrit 26.7 % (39.0-53.0) Mean Corpuscular Volume 95 fL (79-100) Mean Corpuscular Hemoglobin 33 pg (25-35) Mean Corpuscular Hemoglobin Concent 35 g/dL (31-37) Red Cell Distribution Width 12.7 % (11.5-14.5) Platelet Count 231 x10^3/uL (140-400) Neutrophils (%) (Auto) 74 % (31-73) Lymphocytes (%) (Auto) 8 % (24-48) Monocytes (%) (Auto) 14 % (0-9) Eosinophils (%) (Auto) 3 % (0-3) Basophils (%) (Auto) 1 % (0-3) Neutrophils # (Auto) 4.9 x10^3/uL (1.8-7.7) Lymphocytes # (Auto) 0.6 x10^3/uL (1.0-4.8) Monocytes # (Auto) 0.9 x10^3/uL (0.0-1.1) Eosinophils # (Auto) 0.2 x10^3/uL (0.0-0.7) Basophils # (Auto) 0.1 x10^3/uL (0.0-0.2) Sodium Level 139 mmol/L (136-145) Potassium Level 4.1 mmol/L (3.5-5.1) Chloride Level 100 mmol/L (98-107) Carbon Dioxide Level 29 mmol/L (21-32) Anion Gap 10 (6-14) Blood Urea Nitrogen 30 mg/dL (8-26) Creatinine 3.8 mg/dL (0.7-1.3) Estimated GFR (Cockcroft-Gault) 16.9 Glucose Level 260 mg/dL (70-99) Calcium Level 8.8 mg/dL (8.5-10.1) Test 02/25/19 07:17 Glucose (Fingerstick) 292 mg/dL (70-99) Review of Systems Review of Systems: Pt denies difficulty swallowing Pt denies vision change Assessment and Plan Assessmemt and Plan Problems Medical Problems: (1) DKA (diabetic ketoacidoses) Status: Acute (2) Elevated troponin Status: Acute (3) Renal failure Status: Acute Assessment Unsteady Gait Acute DKA Altered mental status Seizure SARAH Hyperkalemia T2DM Leukocytosis Lactic acidosis Dysphagia Plan Await chair time When he has a chair time he will be D/C to home with his mom and sister Renal Diet Labs Home meds DVT prophylaxis PT/OT Full code Comment Review of Relevant I have reviewed the following items mindy (where applicable) has been applied. MONIQUE SIERRA III DO Feb 25, 2019 10:20
[2019-02-25 11:00] VITALS: BP 117/69
--- NOTE | 2019-02-25 12:01 | PDOC ---
PROGRESS NOTES Assessment Problems Medical Problems: (1) DKA (diabetic ketoacidoses) Status: Acute (2) Elevated troponin Status: Acute (3) Renal failure Status: Acute Metabolic encephalopathy. Seizure, provoked, EEG negative for epileptic activity. Rhabdomyolysis. Dysphagia, passed swallow test reportedly. No evidence of acute CVA Plan Treat medical diseases. Continue ASA daily. Continue Lipitor HS. OT/PT. Subjective No complaints Objective Vital Signs Date Time Temp Pulse Resp B/P (MAP) Pulse Ox O2 Delivery O2 Flow Rate FiO2 02/25/19 11:00 98.0 84 18 117/69 (85) 95 Room Air 98.0 Intake and Output0 02/25/19 06:59 Intake Total 560 ml Output Total 250 ml Balance 310 ml Intake Oral 560 ml Output Urine Total 250 ml # Voids 1 PHYSICAL EXAM Alert. Oriented to time, place and person. PERRL. EOMI. CN: no focal findings. Muscle tone: normal. Muscle strength: 4+/5 DTR: 1+ Plantar reflex: flexor Gait: not examined in bed. Sensory exam: no abnormal findings. No cerebellar signs elicited. Review of Relevant I have reviewed the following items mindy (where applicable) has been applied. Labs Laboratory Tests Test 02/23/19 16:20 02/23/19 20:56 02/24/19 04:10 02/24/19 07:14 Glucose (Fingerstick) 303 mg/dL (70-99) 266 mg/dL (70-99) 277 mg/dL (70-99) White Blood Count 7.2 x10^3/uL (4.0-11.0) Red Blood Count 2.79 x10^6/uL (4.30-5.70) Hemoglobin 9.3 g/dL (13.0-17.5) Hematocrit 26.4 % (39.0-53.0) Mean Corpuscular Volume 95 fL (79-100) Mean Corpuscular Hemoglobin 33 pg (25-35) Mean Corpuscular Hemoglobin Concent 35 g/dL (31-37) Red Cell Distribution Width 12.5 % (11.5-14.5) Platelet Count 260 x10^3/uL (140-400) Neutrophils (%) (Auto) 78 % (31-73) Lymphocytes (%) (Auto) 6 % (24-48) Monocytes (%) (Auto) 12 % (0-9) Eosinophils (%) (Auto) 3 % (0-3) Basophils (%) (Auto) 1 % (0-3) Neutrophils # (Auto) 5.6 x10^3/uL (1.8-7.7) Lymphocytes # (Auto) 0.4 x10^3/uL (1.0-4.8) Monocytes # (Auto) 0.9 x10^3/uL (0.0-1.1) Eosinophils # (Auto) 0.2 x10^3/uL (0.0-0.7) Basophils # (Auto) 0.1 x10^3/uL (0.0-0.2) Sodium Level 135 mmol/L (136-145) Potassium Level 3.8 mmol/L (3.5-5.1) Chloride Level 96 mmol/L (98-107) Carbon Dioxide Level 24 mmol/L (21-32) Anion Gap 15 (6-14) Blood Urea Nitrogen 57 mg/dL (8-26) Creatinine 5.7 mg/dL (0.7-1.3) Estimated GFR (Cockcroft-Gault) 10.6 Glucose Level 282 mg/dL (70-99) Calcium Level 8.9 mg/dL (8.5-10.1) Test 02/24/19 11:59 02/24/19 16:52 02/24/19 19:17 02/25/19 04:10 Glucose (Fingerstick) 138 mg/dL (70-99) 271 mg/dL (70-99) 285 mg/dL (70-99) White Blood Count 6.7 x10^3/uL (4.0-11.0) Red Blood Count 2.81 x10^6/uL (4.30-5.70) Hemoglobin 9.2 g/dL (13.0-17.5) Hematocrit 26.7 % (39.0-53.0) Mean Corpuscular Volume 95 fL (79-100) Mean Corpuscular Hemoglobin 33 pg (25-35) Mean Corpuscular Hemoglobin Concent 35 g/dL (31-37) Red Cell Distribution Width 12.7 % (11.5-14.5) Platelet Count 231 x10^3/uL (140-400) Neutrophils (%) (Auto) 74 % (31-73) Lymphocytes (%) (Auto) 8 % (24-48) Monocytes (%) (Auto) 14 % (0-9) Eosinophils (%) (Auto) 3 % (0-3) Basophils (%) (Auto) 1 % (0-3) Neutrophils # (Auto) 4.9 x10^3/uL (1.8-7.7) Lymphocytes # (Auto) 0.6 x10^3/uL (1.0-4.8) Monocytes # (Auto) 0.9 x10^3/uL (0.0-1.1) Eosinophils # (Auto) 0.2 x10^3/uL (0.0-0.7) Basophils # (Auto) 0.1 x10^3/uL (0.0-0.2) Sodium Level 139 mmol/L (136-145) Potassium Level 4.1 mmol/L (3.5-5.1) Chloride Level 100 mmol/L (98-107) Carbon Dioxide Level 29 mmol/L (21-32) Anion Gap 10 (6-14) Blood Urea Nitrogen 30 mg/dL (8-26) Creatinine 3.8 mg/dL (0.7-1.3) Estimated GFR (Cockcroft-Gault) 16.9 Glucose Level 260 mg/dL (70-99) Calcium Level 8.8 mg/dL (8.5-10.1) Test 02/25/19 07:17 02/25/19 11:34 Glucose (Fingerstick) 292 mg/dL (70-99) 248 mg/dL (70-99) Laboratory Tests Test 02/24/19 16:52 02/24/19 19:17 02/25/19 04:10 02/25/19 07:17 Glucose (Fingerstick) 271 mg/dL (70-99) 285 mg/dL (70-99) 292 mg/dL (70-99) White Blood Count 6.7 x10^3/uL (4.0-11.0) Red Blood Count 2.81 x10^6/uL (4.30-5.70) Hemoglobin 9.2 g/dL (13.0-17.5) Hematocrit 26.7 % (39.0-53.0) Mean Corpuscular Volume 95 fL (79-100) Mean Corpuscular Hemoglobin 33 pg (25-35) Mean Corpuscular Hemoglobin Concent 35 g/dL (31-37) Red Cell Distribution Width 12.7 % (11.5-14.5) Platelet Count 231 x10^3/uL (140-400) Neutrophils (%) (Auto) 74 % (31-73) Lymphocytes (%) (Auto) 8 % (24-48) Monocytes (%) (Auto) 14 % (0-9) Eosinophils (%) (Auto) 3 % (0-3) Basophils (%) (Auto) 1 % (0-3) Neutrophils # (Auto) 4.9 x10^3/uL (1.8-7.7) Lymphocytes # (Auto) 0.6 x10^3/uL (1.0-4.8) Monocytes # (Auto) 0.9 x10^3/uL (0.0-1.1) Eosinophils # (Auto) 0.2 x10^3/uL (0.0-0.7) Basophils # (Auto) 0.1 x10^3/uL (0.0-0.2) Sodium Level 139 mmol/L (136-145) Potassium Level 4.1 mmol/L (3.5-5.1) Chloride Level 100 mmol/L (98-107) Carbon Dioxide Level 29 mmol/L (21-32) Anion Gap 10 (6-14) Blood Urea Nitrogen 30 mg/dL (8-26) Creatinine 3.8 mg/dL (0.7-1.3) Estimated GFR (Cockcroft-Gault) 16.9 Glucose Level 260 mg/dL (70-99) Calcium Level 8.8 mg/dL (8.5-10.1) Test 02/25/19 11:34 Glucose (Fingerstick) 248 mg/dL (70-99) Microbiology 02/12/19 Throat Culture - Final, Complete 02/12/19 - Final, Complete 02/12/19 Blood Culture - Final, Complete NO GROWTH AFTER 5 DAYS 02/11/19 Urine Culture - Final, Complete 02/11/19 Urine Culture Result 1 (SABINE) - Final, Complete Medications Current Medications Sodium Chloride 1,000 ml @ 1,000 mls/hr 1X ONCE IV Last administered on 02/11/19at 19:19; Start 02/11/19 at 19:15; Stop 02/11/19 at 20:14; Status DC Sodium Chloride 1,000 ml @ 1,000 mls/hr 1X ONCE IV Last administered on 02/11/19at 20:21; Start 02/11/19 at 20:00; Stop 02/11/19 at 20:59; Status DC Insulin Human Regular (HumuLIN R VIAL) 9 unit 1X ONCE SQ Last administered on 02/11/19at 20:21; Start 02/11/19 at 20:00; Stop 02/11/19 at 20:01; Status DC Insulin Human Regular 150 unit/ Sodium Chloride 151.5 ml @ 0 mls/hr CONT PRN PRN IV PER PROTOCOL Last administered on 02/13/19at 06:10; Start 02/11/19 at 20:00; Stop 02/23/19 at 17:03; Status DC Potassium Chloride/Water 100 ml @ 100 mls/hr PRN Q1HR PRN IV SEE COMMENTS; Start 02/11/19 at 20:00 Potassium Chloride/Water 100 ml @ 100 mls/hr PRN Q1HR PRN IV SEE COMMENTS; Start 02/11/19 at 20:00 Potassium Chloride/Water 100 ml @ 100 mls/hr PRN Q1HR PRN IV SEE COMMENTS; Start 02/11/19 at 20:00 Magnesium Sulfate/ Dextrose 100 ml @ 25 mls/hr PRN DAILY PRN IV SEE COMMENTS; Start 02/12/19 at 09:00 Aspirin (Aspirin Rectal Supp) 300 mg 1X ONCE [place] Last administered on 02/11/19at 20:21; Start 02/11/19 at 20:00; Stop 02/11/19 at 20:03; Status DC Insulin Human Regular 150 ml @ 0 mls/hr CONT PRN PRN IV PER PROTOCOL Last administered on 02/11/19at 20:21; Start 02/11/19 at 20:15; Stop 02/11/19 at 23:00; Status DC Ondansetron HCl (Zofran) 4 mg PRN Q8HRS PRN IV NAUSEA/VOMITING; Start 02/11/19 at 20:30; Stop 02/12/19 at 20:29; Status DC Calcium Gluconate (Calcium Gluconate) 1,000 mg 1X ONCE IVP Last administered on 02/11/19at 21:29; Start 02/11/19 at 21:00; Stop 02/11/19 at 21:01; Status DC Sodium Chloride 1,000 ml @ 500 mls/hr 1X ONCE IV Last administered on 02/11/19at 21:29; Start 02/11/19 at 21:30; Stop 02/11/19 at 23:29; Status DC Lidocaine/Sodium Bicarbonate (Buffered Lidocaine 1%) 3 ml STK-MED ONCE .ROUTE ; Start 02/11/19 at 22:37; Stop 02/11/19 at 22:37; Status DC Lidocaine/Sodium Bicarbonate (Buffered Lidocaine 1%) 3 ml 1X ONCE IJ Last administered on 02/11/19at 23:10; Start 02/11/19 at 23:00; Stop 02/11/19 at 23:01; Status DC Sodium Chloride 1,000 ml @ 1,000 mls/hr Q1H PRN IV hypotension; Start 02/11/19 at 23:23; Stop 02/12/19 at 05:22; Status DC Sodium Chloride 1,000 ml @ 400 mls/hr Q2H30M PRN IV PATENCY; Start 02/11/19 at 23:23; Stop 02/12/19 at 11:22; Status DC Info (PHARMACY MONITORING -- do not chart) 1 each PRN DAILY PRN MC SEE COMMENTS; Start 02/11/19 at 23:30; Status UNV Info (PHARMACY MONITORING -- do not chart) 1 each PRN DAILY PRN MC SEE COMMENTS; Start 02/11/19 at 23:30; Stop 02/12/19 at 18:07; Status DC Sodium Chloride 1,000 ml @ 250 mls/hr Q4H IV Last administered on 02/12/19at 00:20; Start 02/12/19 at 00:14; Stop 02/12/19 at 01:32; Status DC Piperacillin Sod/ Tazobactam Sod 3.375 gm/Sodium Chloride 50 ml @ 100 mls/hr Q6HRS IV ; Start 02/12/19 at 01:00; Status UNV Piperacillin Sod/ Tazobactam Sod 2.25 gm/Sodium Chloride 50 ml @ 100 mls/hr Q8HRS IV Last administered on 02/17/19at 05:59; Start 02/12/19 at 01:00; Stop 02/17/19 at 13:26; Status DC Dextrose/Sodium Chloride 1,000 ml @ 250 mls/hr Q4H IV Last administered on 02/12/19at 15:39; Start 02/12/19 at 01:32; Stop 02/12/19 at 21:05; Status DC Lorazepam (Ativan Inj) 1 mg PRN Q10MIN PRN IV SEIZURE; Start 02/12/19 at 03:00 Sodium Chloride 250 ml @ 250 mls/hr 1X ONCE IV Last administered on 02/12/19at 05:25; Start 02/12/19 at 05:00; Stop 02/12/19 at 05:59; Status DC Azithromycin 500 mg/Sodium Chloride 250 ml @ 250 mls/hr 1X ONCE IV Last administered on 02/12/19at 05:25; Start 02/12/19 at 05:00; Stop 02/12/19 at 05:59; Status DC Potassium Chloride/Water 50 ml @ 25 mls/hr Q2H IV Last administered on 02/12/19at 10:06; Start 02/12/19 at 08:00; Stop 02/12/19 at 11:59; Status DC Azithromycin 250 ml @ 250 mls/hr 1X ONCE IV ; Start 02/13/19 at 05:00; Stop 02/12/19 at 11:37; Status DC Azithromycin 500 mg/Sodium Chloride 250 ml @ 250 mls/hr 1X ONCE IV Last administered on 02/13/19at 04:33; Start 02/13/19 at 05:00; Stop 02/13/19 at 05:59; Status DC Potassium Chloride/Water 50 ml @ 25 mls/hr Q2H IV Last administered on 02/12/19at 18:18; Start 02/12/19 at 16:00; Stop 02/12/19 at 19:59; Status DC Sodium Chloride 1,000 ml @ 1,000 mls/hr Q1H PRN IV hypotension; Start 02/12/19 at 15:00; Stop 02/12/19 at 20:59; Status DC Sodium Chloride (Normal Saline Flush) 10 ml 1X PRN PRN IV AP catheter pack; Start 02/12/19 at 15:00; Stop 02/13/19 at 14:17; Status DC Sodium Chloride (Normal Saline Flush) 10 ml 1X PRN PRN IV MARKETING SPECIALIST catheter pack; Start 02/12/19 at 15:00; Stop 02/13/19 at 14:17; Status DC Sodium Chloride 1,000 ml @ 400 mls/hr Q2H30M PRN IV PATENCY; Start 02/12/19 at 15:00; Stop 02/13/19 at 02:59; Status DC Info (PHARMACY MONITORING -- do not chart) 1 each PRN DAILY PRN MC SEE COMMENTS; Start 02/12/19 at 18:00; Stop 02/12/19 at 18:07; Status DC Info (PHARMACY MONITORING -- do not chart) 1 each PRN DAILY PRN MC SEE COMMENTS; Start 02/12/19 at 18:00; Status Cancel Sodium Chloride 1,000 ml @ 75 mls/hr [id number] IV Last administered on 02/15/19at 22:35; Start 02/12/19 at 20:45; Stop 02/16/19 at 13:48; Status DC Dextrose (Dextrose 50%-Water Syringe) 12.5 gm PRN Q15MIN PRN IV SEE COMMENTS Last administered on 02/13/19at 11:44; Start 02/12/19 at 20:45 Hydralazine HCl (Apresoline Inj) 10 mg PRN Q4HRS PRN IVP ELEVATED BP, SEE COMMENTS Last administered on 02/16/19at 21:14; Start 02/12/19 at 20:45 Insulin Human Lispro (HumaLOG) 0-5 UNITS Q6HRS SQ Last administered on 02/19/19at 05:57; Start 02/13/19 at 00:00; Stop 02/19/19 at 15:54; Status DC Albuterol Sulfate (Ventolin Neb Soln) 2.5 mg 1X ONCE NEB Last administered on 02/13/19at 01:01; Start 02/13/19 at 01:00; Stop 02/13/19 at 01:01; Status DC Ondansetron HCl (Zofran) 4 mg PRN Q6HRS PRN IV NAUSEA/VOMITING Last administered on 02/15/19at 06:08; Start 02/13/19 at 03:30 Scopolamine (Transderm-Scop) 1 patch 1X ONCE TD Last administered on 02/13/19at 13:44; Start 02/13/19 at 11:45; Stop 02/13/19 at 11:46; Status DC Azithromycin 500 mg/Sodium Chloride 250 ml @ 250 mls/hr 1X ONCE IV Last administered on 02/14/19at 04:32; Start 02/14/19 at 05:00; Stop 02/14/19 at 05:59; Status DC Sodium Chloride 1,000 ml @ 1,000 mls/hr Q1H PRN IV hypotension; Start 02/14/19 at 11:09; Stop 02/14/19 at 17:08; Status DC Albumin Human 200 ml @ 200 mls/hr 1X PRN PRN IV Hypotension; Start 02/14/19 at 11:15; Stop 02/14/19 at 17:14; Status DC Sodium Chloride (Normal Saline Flush) 10 ml 1X PRN PRN IV AP catheter pack; Start 02/14/19 at 11:15; Stop 02/15/19 at 11:14; Status DC Sodium Chloride (Normal Saline Flush) 10 ml 1X PRN PRN IV MARKETING SPECIALIST catheter pack; Start 02/14/19 at 11:15; Stop 02/15/19 at 11:14; Status DC Sodium Chloride 1,000 ml @ 400 mls/hr Q2H30M PRN IV PATENCY; Start 02/14/19 at 11:09; Stop 02/14/19 at 23:08; Status DC Info (PHARMACY MONITORING -- do not chart) 1 each PRN DAILY PRN MC SEE COMMENTS; Start 02/14/19 at 11:15; Status UNV Info (PHARMACY MONITORING -- do not chart) 1 each PRN DAILY PRN MC SEE COMMENTS; Start 02/14/19 at 11:15; Status UNV Morphine Sulfate (Morphine Sulfate) 2 mg PRN Q4HRS PRN IV PAIN Last administered on 02/25/19at 04:14; Start 02/15/19 at 21:30 Sodium Chloride 1,000 ml @ 50 mls/hr Q20H IV Last administered on 02/16/19at 18:29; Start 02/16/19 at 18:00; Stop 02/17/19 at 15:12; Status DC Sodium Chloride 1,000 ml @ 1,000 mls/hr Q1H PRN IV hypotension; Start 02/17/19 at 07:39; Stop 02/17/19 at 13:38; Status DC Diphenhydramine HCl (Benadryl) 25 mg 1X PRN PRN IV ITCHING; Start 02/17/19 at 07:45; Stop 02/18/19 at 07:44; Status DC Diphenhydramine HCl (Benadryl) 25 mg 1X PRN PRN IV ITCHING; Start 02/17/19 at 07:45; Stop 02/18/19 at 07:44; Status DC Sodium Chloride 1,000 ml @ 400 mls/hr Q2H30M PRN IV PATENCY; Start 02/17/19 at 07:39; Stop 02/17/19 at 19:38; Status DC Info (PHARMACY MONITORING -- do not chart) 1 each PRN DAILY PRN MC SEE COMMENTS; Start 02/17/19 at 07:45; Stop 02/21/19 at 14:29; Status DC Aspirin (Children'S Aspirin) 81 mg [id number] PO Last administered on 02/25/19at 08:32; Start 02/17/19 at 12:30 Atorvastatin Calcium (Lipitor) 20 mg QHS PO Last administered on 02/24/19at 19:40; Start 02/17/19 at 21:00 Darbepoetin Michael (ARANESP for DIALYSIS PTS) 60 mcg WEEKLYHS SQ Last a dministered on 02/25/19at 00:30; Start 02/17/19 at 21:00 Amoxicillin/ Clavulanate Potassium (Augmentin 500/ 125mg) 1 tab BID PO ; Start 02/17/19 at 21:00; Stop 02/18/19 at 16:44; Status DC Amino Acids/ Glycerin/ Electrolytes 1,000 ml @ 80 mls/hr [id number] IV Last administered on 02/22/19at 05:57; Start 02/17/19 at 15:15; Stop 02/22/19 at 17:26; Status DC Lactobacillus Rhamnosus (Culturelle) 1 cap BID PO Last administered on 02/25/19at 08:32; Start 02/17/19 at 21:00 Midazolam HCl (Versed) 2 mg STK-MED ONCE .ROUTE ; Start 02/18/19 at 13:05; Stop 02/18/19 at 13:06; Status DC Fentanyl Citrate (Fentanyl 2ml Vial) 100 mcg STK-MED ONCE .ROUTE ; Start 02/18/19 at 13:05; Stop 02/18/19 at 13:06; Status DC Lidocaine/ Epinephrine (LIDOCAINE 1%-EPI 1:100,000 Multi-Dose) 20 ml STK-MED ONCE .ROUTE ; Start 02/18/19 at 13:16; Stop 02/18/19 at 13:16; Status DC Midazolam HCl (Versed) 2 mg 1X ONCE IV Last administered on 02/18/19at 14:06; Start 02/18/19 at 14:00; Stop 02/18/19 at 14:03; Status DC Fentanyl Citrate (Fentanyl 2ml Vial) 100 mcg 1X ONCE IV Last administered on 02/18/19at 14:06; Start 02/18/19 at 14:00; Stop 02/18/19 at 14:03; Status DC Lidocaine/ Epinephrine (LIDOCAINE 1%-EPI 1:100,000 Multi-Dose) 20 ml 1X ONCE SQ Last administered on 02/18/19at 14:06; Start 02/18/19 at 14:00; Stop 02/18/19 at 14:03; Status DC Iohexol (Omnipaque 240 Mg/ml) 50 ml 1X ONCE IV ; Start 02/18/19 at 14:00; Stop 02/18/19 at 14:07; Status DC Amoxicillin/ Clavulanate Potassium (Augmentin 500/ 125mg) 1 tab QHS PO ; Start 02/18/19 at 21:00; Stop 02/18/19 at 17:20; Status DC Sodium Chloride 1,000 ml @ 1,000 mls/hr Q1H PRN IV hypotension; Start 02/19/19 at 08:53; Stop 02/19/19 at 14:52; Status DC Albumin Human 200 ml @ 200 mls/hr 1X PRN PRN IV Hypotension; Start 02/19/19 at 09:00; Stop 02/19/19 at 14:59; Status DC Sodium Chloride (Normal Saline Flush) 10 ml 1X PRN PRN IV AP catheter pack; Start 02/19/19 at 09:00; Stop 02/20/19 at 08:59; Status DC Sodium Chloride (Normal Saline Flush) 10 ml 1X PRN PRN IV MARKETING SPECIALIST catheter pack; Start 02/19/19 at 09:00; Stop 02/20/19 at 08:59; Status DC Sodium Chloride 1,000 ml @ 400 mls/hr Q2H30M PRN IV PATENCY; Start 02/19/19 at 08:53; Stop 02/19/19 at 20:52; Status DC Info (PHARMACY MONITORING -- do not chart) 1 each PRN DAILY PRN MC SEE COMMENTS; Start 02/19/19 at 09:00; Status UNV Info (PHARMACY MONITORING -- do not chart) 1 each PRN DAILY PRN MC SEE COMMENTS; Start 02/19/19 at 09:00; Stop 02/21/19 at 14:29; Status DC Barium Sulfate (Varibar Thin Liquid Apple) 148 gm 1X ONCE PO Last administered on 02/19/19at 14:39; Start 02/19/19 at 14:15; Stop 02/19/19 at 14:16; Status DC Insulin Human Lispro (HumaLOG) 0-5 UNITS QIDACHS SQ Last administered on 02/25/19at 08:32; Start 02/19/19 at 16:30 Sodium Chloride 1,000 ml @ 1,000 mls/hr Q1H PRN IV hypotension; Start 02/21/19 at 07:14; Stop 02/21/19 at 13:13; Status DC Albumin Human 200 ml @ 200 mls/hr 1X PRN PRN IV Hypotension; Start 02/21/19 at 07:15; Stop 02/21/19 at 13:14; Status DC Acetaminophen (Tylenol) 500 mg 1X PRN PRN PO MILD PAIN / TEMP Last administered on 02/21/19at 20:09; Start 02/21/19 at 07:15; Stop 02/22/19 at 07:14; Status DC Diphenhydramine HCl (Benadryl) 25 mg 1X PRN PRN IV ITCHING; Start 02/21/19 at 07:15; Stop 02/22/19 at 07:14; Status DC Diphenhydramine HCl (Benadryl) 25 mg 1X PRN PRN IV ITCHING; Start 02/21/19 at 07:15; Stop 02/22/19 at 07:14; Status DC Sodium Chloride (Normal Saline Flush) 10 ml 1X PRN PRN IV AP catheter pack; Start 02/21/19 at 07:15; Stop 02/22/19 at 07:14; Status DC Sodium Chloride (Normal Saline Flush) 10 ml 1X PRN PRN IV MARKETING SPECIALIST catheter pack; Start 02/21/19 at 07:15; Stop 02/22/19 at 07:14; Status DC Sodium Chloride 1,000 ml @ 400 mls/hr Q2H30M PRN IV PATENCY; Start 02/21/19 at 07:14; Stop 02/21/19 at 19:13; Status DC Info (PHARMACY MONITORING -- do not chart) 1 each PRN DAILY PRN MC SEE COMMENTS; Start 02/21/19 at 07:15 Insulin Human Lispro (HumaLOG) 10 units 1X ONCE SQ Last administered on 02/22/19at 17:24; Start 02/22/19 at 17:15; Stop 02/22/19 at 17:16; Status DC Sodium Chloride 1,000 ml @ 1,000 mls/hr Q1H PRN IV hypotension; Start 02/24/19 at 07:43; Stop 02/24/19 at 13:42; Status DC Albumin Human 200 ml @ 200 mls/hr 1X PRN PRN IV Hypotension; Start 02/24/19 at 07:45; Stop 02/24/19 at 13:44; Status DC Sodium Chloride (Normal Saline Flush) 10 ml 1X PRN PRN IV AP catheter pack; Start 02/24/19 at 07:45; Stop 02/25/19 at 07:44; Status DC Sodium Chloride (Normal Saline Flush) 10 ml 1X PRN PRN IV 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3 98.2 98.1 98.3 Pulse 95 89 88 87 Resp 17 18 18 B/P (MAP) 137/79 (98) 130/73 (92) 136/74 (94) 128/73 (91) Pulse Ox 91 92 92 O2 Delivery Room Air Room Air Room Air 02/25/19 02/25/19 02/25/19 03:29 07:00 11:00 Temp 98.2 98.7 98.0 98.2 98.7 98.0 Pulse 85 92 84 Resp 18 B/P (MAP) 136/70 (92) 119/64 (82) 117/69 (85) Pulse Ox 92 95 95 O2 Delivery Room Air Room Air Room Air Intake and Output 02/24/19 02/24/19 02/25/19 14:59 22:59 06:59 Intake Total 220 ml 340 ml Output Total 250 ml Balance 220 ml 90 ml CITLALLI GONZALEZ MD Feb 25, 2019 12:01
--- NOTE | 2019-02-25 12:19 | PDOC ---
SUBJECTIVE ROS No Complaints, mother at bedside. Pt states Good UOP, OBJECTIVE Vital Signs Vital Signs Date Time Temp Pulse Resp B/P (MAP) Pulse Ox O2 Delivery O2 Flow Rate FiO2 02/25/19 11:00 98.0 84 18 117/69 (85) 95 Room Air 98.0 I & 0 Intake and Output 02/25/19 06:59 Intake Total 560 ml Output Total 250 ml Balance 310 ml Intake Oral 560 ml Output Urine Total 250 ml # Voids 1 PHYSICAL EXAM Physical Exam GENERAL: NAD HEENT: OM moist NECK: Supple. LUNGS: Improved aeration, nonlabored. HEART: S1 and S2. ABDOMEN: Nondistended, soft, EXTREMITIES: No gross edema SKIN: No rash. NEUROLOGIC: Alert and oriented x 3 DIAGNOSIS/ASSESSMENT Assessment & Plan ? New Onset ESRD- has been on HD MWF , as no renal recovery noted per labs No indiccation for HD today Pt reports good uop, ? accuracy of recorded uop Awaiting OP chair time Access- Tunneled HDC SARAH - suspected ATN at presentation BUN/CR at presentation 200/20 , No baseline available Was initiated on HD ,No improvement in renal function Anemia- On BRAD per protocol HTN - stable DM II- per primary DKA- at presentation Resolved COMMENT/RELEVANT DATA Meds Current Medications Medications (Trade) Dose Ordered Sig/Ismael Start Time Stop Time Status Last Admin Dose Admin Acetaminophen (Tylenol) 500 mg 1X PRN PRN 02/21/19 07:15 02/22/19 07:14 DC 02/21/19 20:09 500 MG Albumin Human 200 ml @ 200 mls/hr 1X PRN PRN 02/24/19 07:45 02/24/19 13:44 DC Albuterol Sulfate (Ventolin Neb Soln) 2.5 mg 1X ONCE 02/13/19 01:00 02/13/19 01:01 DC 02/13/19 01:01 2.5 MG Amino Acids/ Glycerin/ Electrolytes 1,000 ml @ 80 mls/hr [id number] 02/17/19 15:15 02/22/19 17:26 DC 02/22/19 05:57 80 MLS/HR Amoxicillin/ Clavulanate Potassium (Augmentin 500/ 125mg) 1 tab QHS 02/18/19 21:00 02/18/19 17:20 DC Aspirin (Aspirin Rectal Supp) 300 mg 1X ONCE 02/11/19 20:00 02/11/19 20:03 DC 02/11/19 20:21 300 MG Aspirin (Children'S Aspirin) 81 mg [id number] 02/17/19 12:30 02/25/19 08:32 81 MG Atorvastatin Calcium (Lipitor) 20 mg QHS 02/17/19 21:00 02/24/19 19:40 20 MG Azithromycin 250 ml @ 250 mls/hr 1X ONCE 02/13/19 05:00 02/12/19 11:37 DC Azithromycin 500 mg/Sodium Chloride 250 ml @ 250 mls/hr 1X ONCE 02/14/19 05:00 02/14/19 05:59 DC 02/14/19 04:32 250 MLS/HR Barium Sulfate (Varibar Thin Liquid Apple) 148 gm 1X ONCE 02/19/19 14:15 02/19/19 14:16 DC 02/19/19 14:39 148 GM Calcium Gluconate (Calcium Gluconate) 1,000 mg 1X ONCE 02/11/19 21:00 02/11/19 21:01 DC 02/11/19 21:29 1,000 MG Darbepoetin Michael (ARANESP for DIALYSIS PTS) 60 mcg WEEKLYHS 02/17/19 21:00 02/25/19 00:30 60 MCG Dextrose (Dextrose 50%-Water Syringe) 12.5 gm PRN Q15MIN PRN 02/12/19 20:45 02/13/19 11:44 12.5 GM Dextrose/Sodium Chloride 1,000 ml @ 250 mls/hr Q4H 02/12/19 01:32 02/12/19 21:05 DC 02/12/19 15:39 250 MLS/HR Diphenhydramine HCl (Benadryl) 25 mg 1X PRN PRN 02/21/19 07:15 02/22/19 07:14 DC Fentanyl Citrate (Fentanyl 2ml Vial) 100 mcg 1X ONCE 02/18/19 14:00 02/18/19 14:03 DC 02/18/19 14:06 100 MCG Hydralazine HCl (Apresoline Inj) 10 mg PRN Q4HRS PRN 02/12/19 20:45 02/16/19 21:14 10 MG Info (PHARMACY MONITORING -- do not chart) 1 each PRN DAILY PRN 02/24/19 07:45 Insulin Human Lispro (HumaLOG) 10 units 1X ONCE 02/22/19 17:15 02/22/19 17:16 DC 02/22/19 17:24 10 UNITS Insulin Human Regular 150 ml @ 0 mls/hr CONT PRN PRN 02/11/19 20:15 02/11/19 23:00 DC 02/11/19 20:21 1 MLS/HR Insulin Human Regular (HumuLIN R VIAL) 9 unit 1X ONCE 02/11/19 20:00 02/11/19 20:01 DC 02/11/19 20:21 9 UNIT Insulin Human Regular 150 unit/ Sodium Chloride 151.5 ml @ 0 mls/hr CONT PRN PRN 02/11/19 20:00 02/23/19 17:03 DC 02/13/19 06:10 7 MLS/HR Iohexol (Omnipaque 240 Mg/ml) 50 ml 1X ONCE 02/18/19 14:00 02/18/19 14:07 DC Lactobacillus Rhamnosus (Culturelle) 1 cap BID 02/17/19 21:00 02/25/19 08:32 1 CAP Lidocaine/ Epinephrine (LIDOCAINE 1%-EPI 1:100,000 Multi-Dose) 20 ml 1X ONCE 02/18/19 14:00 02/18/19 14:03 DC 02/18/19 14:06 8 ML Lidocaine/Sodium Bicarbonate (Buffered Lidocaine 1%) 3 ml 1X ONCE 02/11/19 23:00 02/11/19 23:01 DC 02/11/19 23:10 4 ML Lorazepam (Ativan Inj) 1 mg PRN Q10MIN PRN 02/12/19 03:00 Magnesium Sulfate/ Dextrose 100 ml @ 25 mls/hr PRN DAILY PRN 02/12/19 09:00 Midazolam HCl (Versed) 2 mg 1X ONCE 02/18/19 14:00 02/18/19 14:03 DC 02/18/19 14:06 1 MG Morphine Sulfate (Morphine Sulfate) 2 mg PRN Q4HRS PRN 02/15/19 21:30 02/25/19 04:14 2 MG Ondansetron HCl (Zofran) 4 mg PRN Q6HRS PRN 02/13/19 03:30 02/15/19 06:08 4 MG Piperacillin Sod/ Tazobactam Sod 2.25 gm/Sodium Chloride 50 ml @ 100 mls/hr Q8HRS 02/12/19 01:00 02/17/19 13:26 DC 02/17/19 05:59 100 MLS/HR Piperacillin Sod/ Tazobactam Sod 3.375 gm/Sodium Chloride 50 ml @ 100 mls/hr Q6HRS 02/12/19 01:00 UNV Potassium Chloride/Water 50 ml @ 25 mls/hr Q2H 02/12/19 16:00 02/12/19 19:59 DC 02/12/19 18:18 25 MLS/HR Scopolamine (Transderm-Scop) 1 patch 1X ONCE 02/13/19 11:45 02/13/19 11:46 DC 02/13/19 13:44 1 PATCH Sodium Chloride 1,000 ml @ 400 mls/hr Q2H30M PRN 02/24/19 07:43 02/24/19 19:42 DC Sodium Chloride (Normal Saline Flush) 10 ml 1X PRN PRN 02/24/19 07:45 02/25/19 07:44 DC Lab Laboratory Tests Test 02/24/19 16:52 02/24/19 19:17 02/25/19 04:10 02/25/19 07:17 Glucose (Fingerstick) 271 mg/dL (70-99) 285 mg/dL (70-99) 292 mg/dL (70-99) White Blood Count 6.7 x10^3/uL (4.0-11.0) Red Blood Count 2.81 x10^6/uL (4.30-5.70) Hemoglobin 9.2 g/dL (13.0-17.5) Hematocrit 26.7 % (39.0-53.0) Mean Corpuscular Volume 95 fL (79-100) Mean Corpuscular Hemoglobin 33 pg (25-35) Mean Corpuscular Hemoglobin Concent 35 g/dL (31-37) Red Cell Distribution Width 12.7 % (11.5-14.5) Platelet Count 231 x10^3/uL (140-400) Neutrophils (%) (Auto) 74 % (31-73) Lymphocytes (%) (Auto) 8 % (24-48) Monocytes (%) (Auto) 14 % (0-9) Eosinophils (%) (Auto) 3 % (0-3) Basophils (%) (Auto) 1 % (0-3) Neutrophils # (Auto) 4.9 x10^3/uL (1.8-7.7) Lymphocytes # (Auto) 0.6 x10^3/uL (1.0-4.8) Monocytes # (Auto) 0.9 x10^3/uL (0.0-1.1) Eosinophils # (Auto) 0.2 x10^3/uL (0.0-0.7) Basophils # (Auto) 0.1 x10^3/uL (0.0-0.2) Sodium Level 139 mmol/L (136-145) Potassium Level 4.1 mmol/L (3.5-5.1) Chloride Level 100 mmol/L (98-107) Carbon Dioxide Level 29 mmol/L (21-32) Anion Gap 10 (6-14) Blood Urea Nitrogen 30 mg/dL (8-26) Creatinine 3.8 mg/dL (0.7-1.3) Estimated GFR (Cockcroft-Gault) 16.9 Glucose Level 260 mg/dL (70-99) Calcium Level 8.8 mg/dL (8.5-10.1) Test 02/25/19 11:34 Glucose (Fingerstick) 248 mg/dL (70-99) Results All relevant outside records, renal labs, imaging studies, telemetry/EKG's were reviewed. ROHIT KNOWLES MD Feb 25, 2019 12:19
[2019-02-25 15:00] VITALS: BP 118/67
--- NOTE | 2019-02-25 16:06 | NUR ---
SW phoned and faxed referral to [facility] Admission. Pt acceptance and admission pending. Discussed with pt and pt's mother in room.
[2019-02-25 19:38] VITALS: BP 139/79
[2019-02-25] MEDS: ATORVASTATIN CALCIUM 20 MG TABLET PO SCH (20:45)
[2019-02-25] MEDS: INSULIN GLARGINE SYRINGE. SQ SCH (21:13)
[2019-02-25 23:50] VITALS: BP 117/66
[2019-02-26 03:58] VITALS: BP 130/74
[2019-02-26 07:15] VITALS: BP 130/77
[2019-02-26] MEDS: INSULIN LISPRO 300 UNITS/3 ML INSULN.PEN. SQ SCH ×4 (07:30→21:42)
[2019-02-26] MEDS ORDERED: IV NORMAL SALINE 1000ML BAG 1,000 ML IV PRN ×2 (07:34)
[2019-02-26] MEDS ORDERED: ALBUMIN HUMAN 25% 200 ML IV PRN (07:45)
[2019-02-26] MEDS ORDERED: DIALYSIS PATIENT. MC PRN ×2 (07:45)
[2019-02-26] MEDS ORDERED: 0.9 % SODIUM CHLORIDE 10 ML DISP.SYRIN. IV PRN ×2 (07:45)
[2019-02-26] MEDS: ASPIRIN CHEWABLE 81 MG TABLET. PO SCH (08:00)
[2019-02-26] MEDS: LACTOBACILLUS RHAMNOSUS GG 1 CAPSULE. PO SCH ×2 (09:00→21:43)
[2019-02-26 09:03] LABS: BASO # 0.1 x10^3/uL (0.0-0.2); BASO % 2 % (0-3); EOS # 0.2 x10^3/uL (0.0-0.7); EOS % 3 % (0-3); HEMATOCRIT 27.1 % (39.0-53.0); HEMOGLOBIN 9.3 g/dL (13.0-17.5); LYMPH # 0.7 x10^3/uL (1.0-4.8); LYMPH % 10 % (24-48); MEAN CORPUSCULAR HEMOGLOBIN 33 pg (25-35); MEAN CORPUSCULAR HGB CONC 34 g/dL (31-37); MEAN CORPUSCULAR VOLUME 95 fL (79-100); MONO # 0.9 x10^3/uL (0.0-1.1); MONO % 14 % (0-9); NEUT # 4.6 x10^3/uL (1.8-7.7); NEUT % 71 % (31-73); PLATELET COUNT 229 x10^3/uL (140-400); RED BLOOD COUNT 2.85 x10^6/uL (4.30-5.70); RED CELL DISTRIBUTION WIDTH 12.7 % (11.5-14.5); WHITE BLOOD COUNT 6.4 x10^3/uL (4.0-11.0)
[2019-02-26 09:12] LABS: CALCIUM 8.9 mg/dL (8.5-10.1); CREATININE 4.8 mg/dL (0.7-1.3); GFR 12.9
--- NOTE | 2019-02-26 09:51 | PDOC ---
SUBJECTIVE ROS No Complaints, seen on HD OBJECTIVE Vital Signs Vital Signs Date Time Temp Pulse Resp B/P (MAP) Pulse Ox O2 Delivery O2 Flow Rate FiO2 02/26/19 07:15 97.9 90 20 130/77 (94) 95 Room Air 97.9 I & 0 Intake and Output 02/26/19 06:59 Intake Total 450 ml Output Total 450 ml Balance 0 ml Intake Oral 450 ml Output Urine Total 450 ml PHYSICAL EXAM Physical Exam GENERAL: NAD HEENT: OM moist NECK: Supple. LUNGS: Improved aeration, nonlabored. HEART: S1 and S2. ABDOMEN: Nondistended, soft, EXTREMITIES: No gross edema SKIN: No rash. 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 Awaiting OP chair time Access- Tunneled HDC SARAH - suspected ATN at presentation BUN/CR at presentation 200/20 , No baseline available Was initiated on HD ,No improvement in renal function Anemia- On BRAD per protocol HTN - stable DM II- per primary DKA- at presentation Resolved COMMENT/RELEVANT DATA Meds Current Medications Medications (Trade) Dose Ordered Sig/Ismael Start Time Stop Time Status Last Admin Dose Admin Acetaminophen (Tylenol) 500 mg 1X PRN PRN 02/21/19 07:15 02/22/19 07:14 DC 02/21/19 20:09 500 MG Albumin Human 200 ml @ 200 mls/hr 1X PRN PRN 02/26/19 07:45 02/26/19 13:44 Albuterol Sulfate (Ventolin Neb Soln) 2.5 mg 1X ONCE 02/13/19 01:00 02/13/19 01:01 DC 02/13/19 01:01 2.5 MG Amino Acids/ Glycerin/ Electrolytes 1,000 ml @ 80 mls/hr [id number] 02/17/19 15:15 02/22/19 17:26 DC 02/22/19 05:57 80 MLS/HR Amoxicillin/ Clavulanate Potassium (Augmentin 500/ 125mg) 1 tab QHS 02/18/19 21:00 02/18/19 17:20 DC Aspirin (Aspirin Rectal Supp) 300 mg 1X ONCE 02/11/19 20:00 02/11/19 20:03 DC 02/11/19 20:21 300 MG Aspirin (Children'S Aspirin) 81 mg [id number] 02/17/19 12:30 02/25/19 08:32 81 MG Atorvastatin Calcium (Lipitor) 20 mg QHS 02/17/19 21:00 02/25/19 20:52 20 MG Azithromycin 250 ml @ 250 mls/hr 1X ONCE 02/13/19 05:00 02/12/19 11:37 DC Azithromycin 500 mg/Sodium Chloride 250 ml @ 250 mls/hr 1X ONCE 02/14/19 05:00 02/14/19 05:59 DC 02/14/19 04:32 250 MLS/HR Barium Sulfate (Varibar Thin Liquid Apple) 148 gm 1X ONCE 02/19/19 14:15 02/19/19 14:16 DC 02/19/19 14:39 148 GM Calcium Gluconate (Calcium Gluconate) 1,000 mg 1X ONCE 02/11/19 21:00 02/11/19 21:01 DC 02/11/19 21:29 1,000 MG Darbepoetin Michael (ARANESP for DIALYSIS PTS) 60 mcg WEEKLYHS 02/17/19 21:00 02/25/19 00:30 60 MCG Dextrose (Dextrose 50%-Water Syringe) 12.5 gm PRN Q15MIN PRN 02/12/19 20:45 02/13/19 11:44 12.5 GM Dextrose/Sodium Chloride 1,000 ml @ 250 mls/hr Q4H 02/12/19 01:32 02/12/19 21:05 DC 02/12/19 15:39 250 MLS/HR Diphenhydramine HCl (Benadryl) 25 mg 1X PRN PRN 02/21/19 07:15 02/22/19 07:14 DC Fentanyl Citrate (Fentanyl 2ml Vial) 100 mcg 1X ONCE 02/18/19 14:00 02/18/19 14:03 DC 02/18/19 14:06 100 MCG Hydralazine HCl (Apresoline Inj) 10 mg PRN Q4HRS PRN 02/12/19 20:45 02/16/19 21:14 10 MG Info (PHARMACY MONITORING -- do not chart) 1 each PRN DAILY PRN 02/26/19 07:45 Insulin Glargine (Lantus Syringe) 10 unit QHS 02/25/19 21:00 02/25/19 21:45 10 UNIT Insulin Human Lispro (HumaLOG) 10 units 1X ONCE 02/22/19 17:15 02/22/19 17:16 DC 02/22/19 17:24 10 UNITS Insulin Human Regular 150 ml @ 0 mls/hr CONT PRN PRN 02/11/19 20:15 02/11/19 23:00 DC 02/11/19 20:21 1 MLS/HR Insulin Human Regular (HumuLIN R VIAL) 9 unit 1X ONCE 02/11/19 20:00 02/11/19 20:01 DC 02/11/19 20:21 9 UNIT Insulin Human Regular 150 unit/ Sodium Chloride 151.5 ml @ 0 mls/hr CONT PRN PRN 02/11/19 20:00 02/23/19 17:03 DC 02/13/19 06:10 7 MLS/HR Iohexol (Omnipaque 240 Mg/ml) 50 ml 1X ONCE 02/18/19 14:00 02/18/19 14:07 DC Lactobacillus Rhamnosus (Culturelle) 1 cap BID 02/17/19 21:00 02/25/19 20:52 1 CAP Lidocaine/ Epinephrine (LIDOCAINE 1%-EPI 1:100,000 Multi-Dose) 20 ml 1X ONCE 02/18/19 14:00 02/18/19 14:03 DC 02/18/19 14:06 8 ML Lidocaine/Sodium Bicarbonate (Buffered Lidocaine 1%) 3 ml 1X ONCE 02/11/19 23:00 02/11/19 23:01 DC 02/11/19 23:10 4 ML Lorazepam (Ativan Inj) 1 mg PRN Q10MIN PRN 02/12/19 03:00 Magnesium Sulfate/ Dextrose 100 ml @ 25 mls/hr PRN DAILY PRN 02/12/19 09:00 Midazolam HCl (Versed) 2 mg 1X ONCE 02/18/19 14:00 02/18/19 14:03 DC 02/18/19 14:06 1 MG Morphine Sulfate (Morphine Sulfate) 2 mg PRN Q4HRS PRN 02/15/19 21:30 02/25/19 04:14 2 MG Ondansetron HCl (Zofran) 4 mg PRN Q6HRS PRN 02/13/19 03:30 02/15/19 06:08 4 MG Piperacillin Sod/ Tazobactam Sod 2.25 gm/Sodium Chloride 50 ml @ 100 mls/hr Q8HRS 02/12/19 01:00 02/17/19 13:26 DC 02/17/19 05:59 100 MLS/HR Piperacillin Sod/ Tazobactam Sod 3.375 gm/Sodium Chloride 50 ml @ 100 mls/hr Q6HRS 02/12/19 01:00 UNV Potassium Chloride/Water 50 ml @ 25 mls/hr Q2H 02/12/19 16:00 02/12/19 19:59 DC 02/12/19 18:18 25 MLS/HR Scopolamine (Transderm-Scop) 1 patch 1X ONCE 02/13/19 11:45 02/13/19 11:46 DC 02/13/19 13:44 1 PATCH Sodium Chloride 1,000 ml @ 400 mls/hr Q2H30M PRN 02/26/19 07:34 02/26/19 19:33 Sodium Chloride (Normal Saline Flush) 10 ml 1X PRN PRN 02/26/19 07:45 02/27/19 07:44 Lab Laboratory Tests Test 02/25/19 11:34 02/25/19 17:03 02/25/19 19:16 02/26/19 07:14 Glucose (Fingerstick) 248 mg/dL (70-99) 317 mg/dL (70-99) 290 mg/dL (70-99) 199 mg/dL (70-99) Test 02/26/19 08:45 White Blood Count 6.4 x10^3/uL (4.0-11.0) Red Blood Count 2.85 x10^6/uL (4.30-5.70) Hemoglobin 9.3 g/dL (13.0-17.5) Hematocrit 27.1 % (39.0-53.0) Mean Corpuscular Volume 95 fL (79-100) Mean Corpuscular Hemoglobin 33 pg (25-35) Mean Corpuscular Hemoglobin Concent 34 g/dL (31-37) Red Cell Distribution Width 12.7 % (11.5-14.5) Platelet Count 229 x10^3/uL (140-400) Neutrophils (%) (Auto) 71 % (31-73) Lymphocytes (%) (Auto) 10 % (24-48) Monocytes (%) (Auto) 14 % (0-9) Eosinophils (%) (Auto) 3 % (0-3) Basophils (%) (Auto) 2 % (0-3) Neutrophils # (Auto) 4.6 x10^3/uL (1.8-7.7) Lymphocytes # (Auto) 0.7 x10^3/uL (1.0-4.8) Monocytes # (Auto) 0.9 x10^3/uL (0.0-1.1) Eosinophils # (Auto) 0.2 x10^3/uL (0.0-0.7) Basophils # (Auto) 0.1 x10^3/uL (0.0-0.2) Sodium Level 139 mmol/L (136-145) Potassium Level 4.0 mmol/L (3.5-5.1) Chloride Level 100 mmol/L (98-107) Carbon Dioxide Level 28 mmol/L (21-32) Anion Gap 11 (6-14) Blood Urea Nitrogen 39 mg/dL (8-26) Creatinine 4.8 mg/dL (0.7-1.3) Estimated GFR (Cockcroft-Gault) 12.9 Glucose Level 251 mg/dL (70-99) Calcium Level 8.9 mg/dL (8.5-10.1) Results All relevant outside records, renal labs, imaging studies, telemetry/EKG's were reviewed. ROHIT KNOWLES MD Feb 26, 2019 09:50
--- NOTE | 2019-02-26 10:31 | NUR ---
SW following pt. Spoke with [facility], approval for insurability and admission is still pending. Will continue to follow.
--- NOTE | 2019-02-26 13:09 | PDOC ---
[employer] PROGRESS NOTE Chief Complaint Chief Complaint ESRD Unsteady Gait Acute DKA Altered mental status Seizure SARAH Hyperkalemia T2DM Leukocytosis Lactic acidosis Dysphagia History of Present Illness History of Present Illness 02/26/19 Pt seen and examined at bedside and in NAD Pt expresses he is ready to go home DW RN 02/25/19 Pt seen and examined at bedside Pt in NAD and eating breakfast while sitting up comfortably DW RN 02/24/19 Pt seen and examined at bedside Pt is resting comfortably on HD DW RN 02/23/19 Pt seen/examined at bedside DW pt and his mom 02/22/19 Resting w/ NAD DW RN who said she is titrating off O2 02/21/19 Pt seen/examined in HD MRI indicates no significant findings DW 02/20/19 Pt seen/examined at bedside Pt returned from MRI of head, await results Pt has [place] to bsd Previous Days Notes per Dr. Howard 02/18/19: renal dose to po augmentin Off azithromycin, cultures negative, including group A strep continue to adjust insulin as needed 02/14/19 Pt seen and examined in ICU [place] to BSD Pt sitting up in chair and communicative Anion gap 17 (14, 17 today) DW RN DW family 02/13/19 Pt seen and examined in ICU Venti mask at 50% O2 Pt sitting up in bed marked improvement Anion gap trending down ( 02/17 OP HD WILL HAVE IR CONVERT TEMP TO TUNNELED HD CATHETER Vitals/I&O Vitals/I&O: Vital Signs Date Time Temp Pulse Resp B/P (MAP) Pulse Ox O2 Delivery O2 Flow Rate FiO2 02/26/19 08:00 Room Air 02/26/19 07:15 97.9 90 20 130/77 (94) 95 97.9 I & O 02/25/19 02/25/19 02/26/19 15:00 23:00 07:00 Intake Total 100 ml 250 ml 100 ml Output Total 450 ml Balance 100 ml -200 ml 100 ml Physical Exam General: Alert, Oriented X3, Cooperative, No acute distress Heart: Regular rate, Normal S1, Other (distant heart tones) Lungs: Crackles Abdomen: Normal bowel sounds, Soft, No tenderness Extremities: No clubbing, No edema, Normal pulses Skin: No breakdown, No significant lesion Labs Labs: Laboratory Tests Test 02/25/19 17:03 02/25/19 19:16 02/26/19 07:14 02/26/19 08:45 Glucose (Fingerstick) 317 mg/dL (70-99) 290 mg/dL (70-99) 199 mg/dL (70-99) White Blood Count 6.4 x10^3/uL (4.0-11.0) Red Blood Count 2.85 x10^6/uL (4.30-5.70) Hemoglobin 9.3 g/dL (13.0-17.5) Hematocrit 27.1 % (39.0-53.0) Mean Corpuscular Volume 95 fL (79-100) Mean Corpuscular Hemoglobin 33 pg (25-35) Mean Corpuscular Hemoglobin Concent 34 g/dL (31-37) Red Cell Distribution Width 12.7 % (11.5-14.5) Platelet Count 229 x10^3/uL (140-400) Neutrophils (%) (Auto) 71 % (31-73) Lymphocytes (%) (Auto) 10 % (24-48) Monocytes (%) (Auto) 14 % (0-9) Eosinophils (%) (Auto) 3 % (0-3) Basophils (%) (Auto) 2 % (0-3) Neutrophils # (Auto) 4.6 x10^3/uL (1.8-7.7) Lymphocytes # (Auto) 0.7 x10^3/uL (1.0-4.8) Monocytes # (Auto) 0.9 x10^3/uL (0.0-1.1) Eosinophils # (Auto) 0.2 x10^3/uL (0.0-0.7) Basophils # (Auto) 0.1 x10^3/uL (0.0-0.2) Sodium Level 139 mmol/L (136-145) Potassium Level 4.0 mmol/L (3.5-5.1) Chloride Level 100 mmol/L (98-107) Carbon Dioxide Level 28 mmol/L (21-32) Anion Gap 11 (6-14) Blood Urea Nitrogen 39 mg/dL (8-26) Creatinine 4.8 mg/dL (0.7-1.3) Estimated GFR (Cockcroft-Gault) 12.9 Glucose Level 251 mg/dL (70-99) Calcium Level 8.9 mg/dL (8.5-10.1) Review of Systems Review of Systems: Denies vision change Denies headache Assessment and Plan Assessmemt and Plan Problems Medical Problems: (1) DKA (diabetic ketoacidoses) Status: Acute (2) Elevated troponin Status: Acute (3) Renal failure Status: Acute Assessment ESRD Unsteady Gait Acute DKA Altered mental status Seizure SARAH Hyperkalemia T2DM Leukocytosis Lactic acidosis Dysphagia Plan M-W-F Dialysis Renal Diet Labs Home meds DVT prophylaxis PT/OT Full code Discharge disposition pending Comment Review of Relevant I have reviewed the following items mindy (where applicable) has been applied. Medications: Current Medications Medications (Trade) Dose Ordered Sig/Ismael Route PRN Reason Start Time Stop Time Status Last Admin Dose Admin Insulin Glargine (Lantus Syringe) 10 unit QHS SQ 02/25/19 21:00 02/25/19 21:45 MONIQUE SIERRA III DO Feb 26, 2019 13:09
[2019-02-26 13:16] VITALS: BP 117/78
[2019-02-26 15:03] VITALS: BP 122/66
[2019-02-26 19:57] VITALS: BP 122/77
[2019-02-26] MEDS: ATORVASTATIN CALCIUM 20 MG TABLET PO SCH (21:43)
[2019-02-26] MEDS: INSULIN GLARGINE SYRINGE. SQ SCH (21:43)
[2019-02-26 23:14] VITALS: BP 110/72
[2019-02-27 03:36] VITALS: BP 104/68
[2019-02-27 07:15] VITALS: BP 117/72
[2019-02-27] MEDS: LACTOBACILLUS RHAMNOSUS GG 1 CAPSULE. PO SCH (08:51)
[2019-02-27] MEDS: ASPIRIN CHEWABLE 81 MG TABLET. PO SCH (08:51)
[2019-02-27] MEDS: INSULIN LISPRO 300 UNITS/3 ML INSULN.PEN. SQ SCH ×2 (09:39→11:30)
[2019-02-27 10:10] LABS: BASO # 0.1 x10^3/uL (0.0-0.2); BASO % 1 % (0-3); EOS # 0.2 x10^3/uL (0.0-0.7); EOS % 3 % (0-3); HEMATOCRIT 30.8 % (39.0-53.0); HEMOGLOBIN 10.5 g/dL (13.0-17.5); LYMPH # 0.8 x10^3/uL (1.0-4.8); LYMPH % 11 % (24-48); MEAN CORPUSCULAR HEMOGLOBIN 33 pg (25-35); MEAN CORPUSCULAR HGB CONC 34 g/dL (31-37); MEAN CORPUSCULAR VOLUME 95 fL (79-100); MONO # 0.9 x10^3/uL (0.0-1.1); MONO % 13 % (0-9); NEUT % 72 % (31-73); PLATELET COUNT 241 x10^3/uL (140-400); RED BLOOD COUNT 3.23 x10^6/uL (4.30-5.70); RED CELL DISTRIBUTION WIDTH 13.3 % (11.5-14.5); WHITE BLOOD COUNT 6.9 x10^3/uL (4.0-11.0)
[2019-02-27 10:25] LABS: CALCIUM 9.3 mg/dL (8.5-10.1); GFR 15.9; POTASSIUM 4.3 mmol/L (3.5-5.1)
--- NOTE | 2019-02-27 11:03 | PDOC ---
[employer] PROGRESS NOTE Chief Complaint Chief Complaint ESRD Unsteady Gait Acute DKA Altered mental status Seizure SARAH Hyperkalemia T2DM Leukocytosis Lactic acidosis Dysphagia History of Present Illness History of Present Illness 02/27/19 Pt seen and examined at bedside and is sitting in bed talking comfortably Pt verbally expresses his desire to go home 02/26/19 Pt seen and examined at bedside and in NAD Pt expresses he is ready to go home DW RN 02/25/19 Pt seen and examined at bedside Pt in NAD and eating breakfast while sitting up comfortably DW RN 02/24/19 Pt seen and examined at bedside Pt is resting comfortably on HD DW RN 02/23/19 Pt seen/examined at bedside DW pt and his mom 02/22/19 Resting w/ NAD DW RN who said she is titrating off O2 02/21/19 Pt seen/examined in HD MRI indicates no significant findings DW 02/20/19 Pt seen/examined at bedside Pt returned from MRI of head, await results Pt has [place] to bsd Previous Days Notes per Dr. Howard 02/18/19: renal dose to po augmentin Off azithromycin, cultures negative, including group A strep continue to adjust insulin as needed 02/14/19 Pt seen and examined in ICU [place] to BSD Pt sitting up in chair and communicative Anion gap 17 (14, 17 today) DW RN DW family 02/13/19 Pt seen and examined in ICU Venti mask at 50% O2 Pt sitting up in bed marked improvement Anion gap trending down ( 02/17 OP HD WILL HAVE IR CONVERT TEMP TO TUNNELED HD CATHETER Vitals/I&O Vitals/I&O: Vital Signs Date Time Temp Pulse Resp B/P (MAP) Pulse Ox O2 Delivery O2 Flow Rate FiO2 02/27/19 08:00 Room Air 02/27/19 07:15 98.1 88 20 117/72 (87) 95 98.1 I & O 02/26/19 02/26/19 02/27/19 14:59 22:59 06:59 Intake Total 120 ml 350 ml 50 ml Output Total 0 ml Balance 120 ml 350 ml 50 ml Physical Exam General: Alert, Oriented X3, Cooperative, No acute distress Heart: Regular rate, Normal S1, Other (distant heart tones) Lungs: Crackles Abdomen: Normal bowel sounds, Soft, No tenderness Extremities: No clubbing, No edema, Normal pulses Skin: No breakdown, No significant lesion Labs Labs: Laboratory Tests Test 02/26/19 13:09 02/26/19 17:15 02/26/19 20:31 02/27/19 07:17 Glucose (Fingerstick) 144 mg/dL (70-99) 203 mg/dL (70-99) 341 mg/dL (70-99) 228 mg/dL (70-99) Test 02/27/19 08:47 White Blood Count 6.9 x10^3/uL (4.0-11.0) Red Blood Count 3.23 x10^6/uL (4.30-5.70) Hemoglobin 10.5 g/dL (13.0-17.5) Hematocrit 30.8 % (39.0-53.0) Mean Corpuscular Volume 95 fL (79-100) Mean Corpuscular Hemoglobin 33 pg (25-35) Mean Corpuscular Hemoglobin Concent 34 g/dL (31-37) Red Cell Distribution Width 13.3 % (11.5-14.5) Platelet Count 241 x10^3/uL (140-400) Neutrophils (%) (Auto) 72 % (31-73) Lymphocytes (%) (Auto) 11 % (24-48) Monocytes (%) (Auto) 13 % (0-9) Eosinophils (%) (Auto) 3 % (0-3) Basophils (%) (Auto) 1 % (0-3) Neutrophils # (Auto) 5.0 x10^3/uL (1.8-7.7) Lymphocytes # (Auto) 0.8 x10^3/uL (1.0-4.8) Monocytes # (Auto) 0.9 x10^3/uL (0.0-1.1) Eosinophils # (Auto) 0.2 x10^3/uL (0.0-0.7) Basophils # (Auto) 0.1 x10^3/uL (0.0-0.2) Sodium Level 138 mmol/L (136-145) Potassium Level 4.3 mmol/L (3.5-5.1) Chloride Level 98 mmol/L (98-107) Carbon Dioxide Level 29 mmol/L (21-32) Anion Gap 11 (6-14) Blood Urea Nitrogen 30 mg/dL (8-26) Creatinine 4.0 mg/dL (0.7-1.3) Estimated GFR (Cockcroft-Gault) 15.9 Glucose Level 222 mg/dL (70-99) Calcium Level 9.3 mg/dL (8.5-10.1) Review of Systems Review of Systems: Denies headache Denies vision change Assessment and Plan Assessmemt and Plan Problems Medical Problems: (1) DKA (diabetic ketoacidoses) Status: Acute (2) Elevated troponin Status: Acute (3) Renal failure Status: Acute Assessment ESRD Unsteady Gait Acute DKA Altered mental status Seizure SARAH Hyperkalemia T2DM Leukocytosis Lactic acidosis Dysphagia Plan M-W-F Dialysis Labs Renal Diet DVT prophylaxis PT/OT Home meds Full code Plan is to discharge today Comment Review of Relevant I have reviewed the following items mindy (where applicable) has been applied. MONIQUE SIERRA III DO Feb 27, 2019 11:03
[2019-02-27 11:13] VITALS: BP 106/66
--- NOTE | 2019-02-27 11:21 | DS ---
DATE OF DISCHARGE: 02/27/2019 ADMISSION DIAGNOSES: Diabetic ketoacidosis, sepsis, elevated troponin, seizure, metabolic encephalopathy, acute kidney injury, hyperkalemia, diabetes, leukocytosis and lactic acidosis. DISCHARGE DIAGNOSES: New diagnosis of end-stage renal disease (we now have him on dialysis), resolving sepsis, resolving metabolic encephalopathy, resolving diabetic ketoacidosis. CONSULTS: Dr. Singletary, Infectious Disease; Dr. Argueta, Nephrology; Dr. Bartlett, Neurology. PROCEDURES: Dialysis catheter placement. HOSPITAL COURSE: The patient is a pleasant elderly male who basically presented with septic and in DKA. He was admitted. He also had acute kidney injury. We gave him fluids and IV antibiotics. He was observed in the ICU for several days. His creatinine never really rebounded much. We ended up having to start dialysis. The sepsis has resolved. For the past few days, he looks great. We have confirmed he is going to need dialysis for the life. Insurance is pending, but the patient wants to go home. I did see him and examined this morning, he looks great, heart tones are normal. Lungs are clear. We plan to discharge with outpatient dialysis. DISPOSITION: Home. ACTIVITY: As tolerated. DIET: Renal. MEDICATIONS: Please see the MRAD. TOTAL TIME: 39 minutes. MONIQUE SIERRA DO DR: JENNY/cristiano JOB#: [id number] / [id number]
--- NOTE | 2019-02-27 13:20 | PDOC ---
SUBJECTIVE ROS No Complaints OBJECTIVE Vital Signs Vital Signs Date Time Temp Pulse Resp B/P (MAP) Pulse Ox O2 Delivery O2 Flow Rate FiO2 02/27/19 11:13 98.7 109 20 106/66 (79) 96 Room Air 98.7 I & 0 Intake and Output 02/27/19 07:00 Intake Total 520 ml Output Total 0 ml Balance 520 ml Intake Oral 520 ml Output Urine Total 0 ml PHYSICAL EXAM Physical Exam GENERAL: NAD HEENT: OM moist NECK: Supple. LUNGS: Improved aeration, nonlabored. HEART: S1 and S2. ABDOMEN: Nondistended, soft, EXTREMITIES: No gross edema SKIN: No rash. NEUROLOGIC: Alert and oriented x 3 DIAGNOSIS/ASSESSMENT Assessment & Plan New Onset ESRD - has been on HD MWF , no renal recovery Currently MWF dialysis, no indication today Awaiting OP chair time Access- Tunneled HDC SARAH - suspected ATN at presentation BUN/CR at presentation 200/20 , No baseline available Was initiated on HD ,No improvement in renal function Anemia- On BRAD per protocol HTN - stable DM II- per primary DKA- at presentation Resolved COMMENT/RELEVANT DATA Meds Current Medications Medications (Trade) Dose Ordered Sig/Ismael Start Time Stop Time Status Last Admin Dose Admin Acetaminophen (Tylenol) 500 mg 1X PRN PRN 02/21/19 07:15 02/22/19 07:14 DC 02/21/19 20:09 500 MG Albumin Human 200 ml @ 200 mls/hr 1X PRN PRN 02/26/19 07:45 02/26/19 13:44 DC Albuterol Sulfate (Ventolin Neb Soln) 2.5 mg 1X ONCE 02/13/19 01:00 02/13/19 01:01 DC 02/13/19 01:01 2.5 MG Amino Acids/ Glycerin/ Electrolytes 1,000 ml @ 80 mls/hr [id number] 02/17/19 15:15 02/22/19 17:26 DC 02/22/19 05:57 80 MLS/HR Amoxicillin/ Clavulanate Potassium (Augmentin 500/ 125mg) 1 tab QHS 02/18/19 21:00 02/18/19 17:20 DC Aspirin (Aspirin Rectal Supp) 300 mg 1X ONCE 02/11/19 20:00 02/11/19 20:03 DC 02/11/19 20:21 300 MG Aspirin (Children'S Aspirin) 81 mg [id number] 02/17/19 12:30 02/27/19 09:39 81 MG Atorvastatin Calcium (Lipitor) 20 mg QHS 02/17/19 21:00 02/25/19 20:52 20 MG Azithromycin 250 ml @ 250 mls/hr 1X ONCE 02/13/19 05:00 02/12/19 11:37 DC Azithromycin 500 mg/Sodium Chloride 250 ml @ 250 mls/hr 1X ONCE 02/14/19 05:00 02/14/19 05:59 DC 02/14/19 04:32 250 MLS/HR Barium Sulfate (Varibar Thin Liquid Apple) 148 gm 1X ONCE 02/19/19 14:15 02/19/19 14:16 DC 02/19/19 14:39 148 GM Calcium Gluconate (Calcium Gluconate) 1,000 mg 1X ONCE 02/11/19 21:00 02/11/19 21:01 DC 02/11/19 21:29 1,000 MG Darbepoetin Michael (ARANESP for DIALYSIS PTS) 60 mcg WEEKLYHS 02/17/19 21:00 02/25/19 00:30 60 MCG Dextrose (Dextrose 50%-Water Syringe) 12.5 gm PRN Q15MIN PRN 02/12/19 20:45 02/13/19 11:44 12.5 GM Dextrose/Sodium Chloride 1,000 ml @ 250 mls/hr Q4H 02/12/19 01:32 02/12/19 21:05 DC 02/12/19 15:39 250 MLS/HR Diphenhydramine HCl (Benadryl) 25 mg 1X PRN PRN 02/21/19 07:15 02/22/19 07:14 DC Fentanyl Citrate (Fentanyl 2ml Vial) 100 mcg 1X ONCE 02/18/19 14:00 02/18/19 14:03 DC 02/18/19 14:06 100 MCG Hydralazine HCl (Apresoline Inj) 10 mg PRN Q4HRS PRN 02/12/19 20:45 02/16/19 21:14 10 MG Info (PHARMACY MONITORING -- do not chart) 1 each PRN DAILY PRN 02/26/19 07:45 Insulin Glargine (Lantus Syringe) 10 unit QHS 02/25/19 21:00 02/26/19 21:43 10 UNIT Insulin Human Lispro (HumaLOG) 10 units 1X ONCE 02/22/19 17:15 02/22/19 17:16 DC 02/22/19 17:24 10 UNITS Insulin Human Regular 150 ml @ 0 mls/hr CONT PRN PRN 02/11/19 20:15 02/11/19 23:00 DC 02/11/19 20:21 1 MLS/HR Insulin Human Regular (HumuLIN R VIAL) 9 unit 1X ONCE 02/11/19 20:00 02/11/19 20:01 DC 02/11/19 20:21 9 UNIT Insulin Human Regular 150 unit/ Sodium Chloride 151.5 ml @ 0 mls/hr CONT PRN PRN 02/11/19 20:00 02/23/19 17:03 DC 02/13/19 06:10 7 MLS/HR Iohexol (Omnipaque 240 Mg/ml) 50 ml 1X ONCE 02/18/19 14:00 02/18/19 14:07 DC Lactobacillus Rhamnosus (Culturelle) 1 cap BID 02/17/19 21:00 02/27/19 09:39 1 CAP Lidocaine/ Epinephrine (LIDOCAINE 1%-EPI 1:100,000 Multi-Dose) 20 ml 1X ONCE 02/18/19 14:00 02/18/19 14:03 DC 02/18/19 14:06 8 ML Lidocaine/Sodium Bicarbonate (Buffered Lidocaine 1%) 3 ml 1X ONCE 02/11/19 23:00 02/11/19 23:01 DC 02/11/19 23:10 4 ML Lorazepam (Ativan Inj) 1 mg PRN Q10MIN PRN 02/12/19 03:00 Magnesium Sulfate/ Dextrose 100 ml @ 25 mls/hr PRN DAILY PRN 02/12/19 09:00 Midazolam HCl (Versed) 2 mg 1X ONCE 02/18/19 14:00 02/18/19 14:03 DC 02/18/19 14:06 1 MG Morphine Sulfate (Morphine Sulfate) 2 mg PRN Q4HRS PRN 02/15/19 21:30 02/25/19 04:14 2 MG Ondansetron HCl (Zofran) 4 mg PRN Q6HRS PRN 02/13/19 03:30 02/15/19 06:08 4 MG Piperacillin Sod/ Tazobactam Sod 2.25 gm/Sodium Chloride 50 ml @ 100 mls/hr Q8HRS 02/12/19 01:00 02/17/19 13:26 DC 02/17/19 05:59 100 MLS/HR Piperacillin Sod/ Tazobactam Sod 3.375 gm/Sodium Chloride 50 ml @ 100 mls/hr Q6HRS 02/12/19 01:00 UNV Potassium Chloride/Water 50 ml @ 25 mls/hr Q2H 02/12/19 16:00 02/12/19 19:59 DC 02/12/19 18:18 25 MLS/HR Scopolamine (Transderm-Scop) 1 patch 1X ONCE 02/13/19 11:45 02/13/19 11:46 DC 02/13/19 13:44 1 PATCH Sodium Chloride 1,000 ml @ 400 mls/hr Q2H30M PRN 02/26/19 07:34 02/26/19 19:33 DC Sodium Chloride (Normal Saline Flush) 10 ml 1X PRN PRN 02/26/19 07:45 02/26/19 19:00 DC Lab Laboratory Tests Test 02/26/19 17:15 02/26/19 20:31 02/27/19 07:17 02/27/19 08:47 Glucose (Fingerstick) 203 mg/dL (70-99) 341 mg/dL (70-99) 228 mg/dL (70-99) White Blood Count 6.9 x10^3/uL (4.0-11.0) Red Blood Count 3.23 x10^6/uL (4.30-5.70) Hemoglobin 10.5 g/dL (13.0-17.5) Hematocrit 30.8 % (39.0-53.0) Mean Corpuscular Volume 95 fL (79-100) Mean Corpuscular Hemoglobin 33 pg (25-35) Mean Corpuscular Hemoglobin Concent 34 g/dL (31-37) Red Cell Distribution Width 13.3 % (11.5-14.5) Platelet Count 241 x10^3/uL (140-400) Neutrophils (%) (Auto) 72 % (31-73) Lymphocytes (%) (Auto) 11 % (24-48) Monocytes (%) (Auto) 13 % (0-9) Eosinophils (%) (Auto) 3 % (0-3) Basophils (%) (Auto) 1 % (0-3) Neutrophils # (Auto) 5.0 x10^3/uL (1.8-7.7) Lymphocytes # (Auto) 0.8 x10^3/uL (1.0-4.8) Monocytes # (Auto) 0.9 x10^3/uL (0.0-1.1) Eosinophils # (Auto) 0.2 x10^3/uL (0.0-0.7) Basophils # (Auto) 0.1 x10^3/uL (0.0-0.2) Sodium Level 138 mmol/L (136-145) Potassium Level 4.3 mmol/L (3.5-5.1) Chloride Level 98 mmol/L (98-107) Carbon Dioxide Level 29 mmol/L (21-32) Anion Gap 11 (6-14) Blood Urea Nitrogen 30 mg/dL (8-26) Creatinine 4.0 mg/dL (0.7-1.3) Estimated GFR (Cockcroft-Gault) 15.9 Glucose Level 222 mg/dL (70-99) Calcium Level 9.3 mg/dL (8.5-10.1) Test 02/27/19 11:31 Glucose (Fingerstick) 245 mg/dL (70-99) Results All relevant outside records, renal labs, imaging studies, telemetry/EKG's were reviewed. ROHIT KNOWLES MD Feb 27, 2019 13:20
--- NOTE | 2019-02-27 14:00 | NUR ---
Pt escorted down to Main Entrance via wheelchair by Katerina FONG, patient faired well. Educated on insulin and diet prior to leaving.
[2019-02-27 19:55] VITALS: BP 154/84
--- NOTE | 2019-02-28 10:28 | NUR ---
POST DC note: Pt has a confirmed chair time on MWF at 1415 at [facility]. SW phoned pt's mother and provided her with location and scheduled. Pt is scheduled today at 1415 and pt's mother agreeable to take pt to clinic today. Discussed with Robyn at [facility].
== END 2019-02-27 19:00 | disposition home or self-care (01) | DRG 871 ==
LOC: ER 17:53 → 1 WEST ICU 21:29 → 6 SOUTH 02-15 19:46
PROVIDERS: ADMIT Family Medicine; ATTEND Family Medicine
PROC: 02HV33Z Insertion of Infusion Device into Superior Vena Cava, Percutaneous Approach (ICD-10-PCS; principal; 2019-02-11)
PROC: B543ZZA Ultrasonography of Right Jugular Veins, Guidance (ICD-10-PCS; 2019-02-11)
PROC: 5A1D70Z Performance of Urinary Filtration, Intermittent, Less than 6 Hours Per Day (ICD-10-PCS; 2019-02-11)
PROC: 5A1D70Z Performance of Urinary Filtration, Intermittent, Less than 6 Hours Per Day (ICD-10-PCS; 2019-02-12)
PROC: 5A1D70Z Performance of Urinary Filtration, Intermittent, Less than 6 Hours Per Day (ICD-10-PCS; 2019-02-14)
PROC: 5A1D70Z Performance of Urinary Filtration, Intermittent, Less than 6 Hours Per Day (ICD-10-PCS; 2019-02-17)
PROC: 02PYX3Z Removal of Infusion Device from Great Vessel, External Approach (ICD-10-PCS; 2019-02-18)
PROC: 02H633Z Insertion of Infusion Device into Right Atrium, Percutaneous Approach (ICD-10-PCS; 2019-02-18)
PROC: 0JH63XZ Insertion of Tunneled Vascular Access Device into Chest Subcutaneous Tissue and Fascia, Percutaneous Approach (ICD-10-PCS; 2019-02-18)
PROC: B2141ZZ Fluoroscopy of Right Heart using Low Osmolar Contrast (ICD-10-PCS; 2019-02-18)
PROC: 5A1D70Z Performance of Urinary Filtration, Intermittent, Less than 6 Hours Per Day (ICD-10-PCS; 2019-02-19)
PROC: 5A1D70Z Performance of Urinary Filtration, Intermittent, Less than 6 Hours Per Day (ICD-10-PCS; 2019-02-21)
PROC: 5A1D70Z Performance of Urinary Filtration, Intermittent, Less than 6 Hours Per Day (ICD-10-PCS; 2019-02-24)
PROC: 5A1D70Z Performance of Urinary Filtration, Intermittent, Less than 6 Hours Per Day (ICD-10-PCS; 2019-02-26)
DX: A41.9 Sepsis, unspecified organism (principal); E11.10 Type 2 diabetes mellitus with ketoacidosis without coma; G93.41 Metabolic encephalopathy; N18.6 End stage renal disease; N17.0 Acute kidney failure with tubular necrosis; I13.2 Hypertensive heart and chronic kidney disease with heart failure and with stage 5 chronic kidney disease, or end stage renal disease; I50.30 Unspecified diastolic (congestive) heart failure; M62.82 Rhabdomyolysis; I24.8 Other forms of acute ischemic heart disease; E11.22 Type 2 diabetes mellitus with diabetic chronic kidney disease; E78.5 Hyperlipidemia, unspecified; E83.42 Hypomagnesemia; E83.51 Hypocalcemia; E87.5 Hyperkalemia; G40.909 Epilepsy, unspecified, not intractable, without status epilepticus; J02.9 Acute pharyngitis, unspecified; E86.0 Dehydration; D64.9 Anemia, unspecified; R13.12 Dysphagia, oropharyngeal phase; Z79.82 Long term (current) use of aspirin; Z80.42 Family history of malignant neoplasm of prostate; Z80.7 Family history of other malignant neoplasms of lymphoid, hematopoietic and related tissues; Z82.49 Family history of ischemic heart disease and other diseases of the circulatory system; Z83.3 Family history of diabetes mellitus; Z91.14 Patient's other noncompliance with medication regimen; Z99.2 Dependence on renal dialysis; Z79.899 Other long term (current) drug therapy
CPT/HCPCS: 36415; 36556; 36558; 36600; 51702; 51798; 70450; 70551; 71045; 74230; 76770; 76937; 77001; 80048; 80053; 80061; 80307; 81001; 82010; 82140; 82553; 82805; 82947; 82962; 83605; 83735; 83930; 84100; 84484; 85007; 85025; 85610; 85730; 86704; 86706; 87040; 87070; 87086; 87340; 87641; 87804; 87880; 93005; 93306; 94640; 95816; 96361; 96365; 96372; 99152; A4215; C1750; C1892; J0360; J0456; J0610; J0882; J1815; J2250; J2270; J2405; J2543; J3010; J3480; J3490; J7030; J7042; J7050; J7613; 92526; 92610; 92611; 97110; 97116; 97530; 97535; 99291-25; G0378

== ENCOUNTER 2019-03-11 09:16 | Observation (INO) | payer SELFPAY ==
[~2019-03-11] VITALS: Ht 177.8 cm; Wt 72.1 kg
[~2019-03-11 09:16] MED LIST: METF500T16 PO
--- NOTE | 2019-03-11 09:29 | PHYS DOC ---
Past Medical History Past Medical History: Diabetes-Type II (SVEN DALTON APRN) Past Surgical History: No Surgical History (SVEN DALTON APRN) Alcohol Use: None Drug Use: None (SVEN DALTON APRN) Adult General Chief Complaint Chief Complaint: DIALYSIS PROBLEM HPI HPI Patient is a 53 year old male that presents to the ER stating that his dialysis port clogged yesterday while he was getting dialysis. He states his putting 3 weeks ago as a temporary port and that he gets dialysis on Sunday and Sunday. Denies any other symptoms. (SVEN DALTON APRN) Review of Systems Review of Systems Constitutional: Denies fever or chills [] Eyes: Denies change in visual acuity, redness, or eye pain [] HENT: Denies nasal congestion or sore throat [] Respiratory: Denies cough or shortness of breath [] Cardiovascular: No additional information not addressed in HPI [] GI: Denies abdominal pain, nausea, vomiting, bloody stools or diarrhea [] : Denies dysuria or hematuria [] Musculoskeletal: Denies back pain or joint pain [] Integument: Denies rash or skin lesions [] Neurologic: Denies headache, focal weakness or sensory changes [] Endocrine: Denies polyuria or polydipsia [] Complete systems were reviewed and found to be within normal limits, except as documented in this note. (SVEN DALTON APRN) Allergies Allergies Allergies Coded Allergies Type Severity Reaction Last Updated Verified No Known Drug Allergies 02/11/19 No (DWIGHT FORD MD) Physical Exam Physical Exam Constitutional: Well developed, well nourished, no acute distress, non-toxic appearance. [] HENT: Normocephalic, atraumatic, bilateral external ears normal, oropharynx moist, no oral exudates, nose normal. [] Eyes: PERRLA, EOMI, conjunctiva normal, no discharge. [] Neck: Normal range of motion, no tenderness, supple, no stridor. [] Cardiovascular:Heart rate regular rhythm, no murmur [] Lungs & Thorax: Bilateral breath sounds clear to auscultation [] Abdomen: Bowel sounds normal, soft, no tenderness, no masses, no pulsatile masses. [] Skin: Warm, dry, no erythema, no rash. [] Back: No tenderness, no CVA tenderness. [] Extremities: No tenderness, no cyanosis, no clubbing, ROM intact, no edema. [] Neurologic: Alert and oriented X 3, normal motor function, normal sensory function, no focal deficits noted. [] Psychologic: Affect normal, judgement normal, mood normal. [] (SVEN DALTON APRN) Current Patient Data Vital Signs Vital Signs Date Time Temp Pulse Resp B/P (MAP) Pulse Ox O2 Delivery O2 Flow Rate FiO2 03/11/19 10:55 98 18 124/76 (92) 96 Room Air 03/11/19 09:21 98.7 98.7 (DWIGHT FORD MD) Lab Values Laboratory Tests Test 03/11/19 09:35 White Blood Count 6.0 x10^3/uL (4.0-11.0) Red Blood Count 2.89 x10^6/uL (4.30-5.70) L Hemoglobin 9.5 g/dL (13.0-17.5) L Hematocrit 27.9 % (39.0-53.0) L Mean Corpuscular Volume 96 fL (79-100) Mean Corpuscular Hemoglobin 33 pg (25-35) Mean Corpuscular Hemoglobin Concent 34 g/dL (31-37) Red Cell Distribution Width 14.0 % (11.5-14.5) Platelet Count 247 x10^3/uL (140-400) Neutrophils (%) (Auto) 74 % (31-73) H Lymphocytes (%) (Auto) 13 % (24-48) L Monocytes (%) (Auto) 9 % (0-9) Eosinophils (%) (Auto) 3 % (0-3) Basophils (%) (Auto) 2 % (0-3) Neutrophils # (Auto) 4.4 x10^3/uL (1.8-7.7) Lymphocytes # (Auto) 0.8 x10^3/uL (1.0-4.8) L Monocytes # (Auto) 0.5 x10^3/uL (0.0-1.1) Eosinophils # (Auto) 0.2 x10^3/uL (0.0-0.7) Basophils # (Auto) 0.1 x10^3/uL (0.0-0.2) Prothrombin Time 12.8 SEC (11.7-14.0) Prothrombin Time INR 1.0 (0.8-1.1) Sodium Level 138 mmol/L (136-145) Potassium Level 4.1 mmol/L (3.5-5.1) Chloride Level 99 mmol/L (98-107) Carbon Dioxide Level 30 mmol/L (21-32) Anion Gap 9 (6-14) Blood Urea Nitrogen 12 mg/dL (8-26) Creatinine 2.8 mg/dL (0.7-1.3) H Estimated GFR (Cockcroft-Gault) 24.0 BUN/Creatinine Ratio 4 (6-20) L Glucose Level 436 mg/dL (70-99) H Hemoglobin A1c 10.0 % (4.8-5.6) H Calcium Level 8.9 mg/dL (8.5-10.1) Total Bilirubin 0.4 mg/dL (0.2-1.0) Aspartate Amino Transferase (AST) 14 U/L (15-37) L Alanine Aminotransferase (ALT) 28 U/L (16-63) Alkaline Phosphatase 166 U/L (46-116) H Total Protein 7.4 g/dL (6.4-8.2) Albumin 3.0 g/dL (3.4-5.0) L Albumin/Globulin Ratio 0.7 (1.0-1.7) L Laboratory Tests 03/11/19 09:35 Laboratory Tests 03/11/19 09:35 (DWIGHT FORD MD) Lab Values Laboratory Tests Test 03/11/19 09:35 White Blood Count 6.0 x10^3/uL (4.0-11.0) Red Blood Count 2.89 x10^6/uL (4.30-5.70) L Hemoglobin 9.5 g/dL (13.0-17.5) L Hematocrit 27.9 % (39.0-53.0) L Mean Corpuscular Volume 96 fL (79-100) Mean Corpuscular Hemoglobin 33 pg (25-35) Mean Corpuscular Hemoglobin Concent 34 g/dL (31-37) Red Cell Distribution Width 14.0 % (11.5-14.5) Platelet Count 247 x10^3/uL (140-400) Neutrophils (%) (Auto) 74 % (31-73) H Lymphocytes (%) (Auto) 13 % (24-48) L Monocytes (%) (Auto) 9 % (0-9) Eosinophils (%) (Auto) 3 % (0-3) Basophils (%) (Auto) 2 % (0-3) Neutrophils # (Auto) 4.4 x10^3/uL (1.8-7.7) Lymphocytes # (Auto) 0.8 x10^3/uL (1.0-4.8) L Monocytes # (Auto) 0.5 x10^3/uL (0.0-1.1) Eosinophils # (Auto) 0.2 x10^3/uL (0.0-0.7) Basophils # (Auto) 0.1 x10^3/uL (0.0-0.2) Prothrombin Time 12.8 SEC (11.7-14.0) Prothrombin Time INR 1.0 (0.8-1.1) Sodium Level 138 mmol/L (136-145) Potassium Level 4.1 mmol/L (3.5-5.1) Chloride Level 99 mmol/L (98-107) Carbon Dioxide Level 30 mmol/L (21-32) Anion Gap 9 (6-14) Blood Urea Nitrogen 12 mg/dL (8-26) Creatinine 2.8 mg/dL (0.7-1.3) H Estimated GFR (Cockcroft-Gault) 24.0 BUN/Creatinine Ratio 4 (6-20) L Glucose Level 436 mg/dL (70-99) H Calcium Level 8.9 mg/dL (8.5-10.1) Total Bilirubin 0.4 mg/dL (0.2-1.0) Aspartate Amino Transferase (AST) 14 U/L (15-37) L Alanine Aminotransferase (ALT) 28 U/L (16-63) Alkaline Phosphatase 166 U/L (46-116) H Total Protein 7.4 g/dL (6.4-8.2) Albumin 3.0 g/dL (3.4-5.0) L Albumin/Globulin Ratio 0.7 (1.0-1.7) L Laboratory Tests 03/11/19 09:35 Laboratory Tests 03/11/19 09:35 (SVEN DALTON APRN) EKG EKG [] (SVEN DALTON APRN) Radiology/Procedures Radiology/Procedures [] (SVEN DALTON APRN) Course & Med Decision Making Course & Med Decision Making Pertinent Labs and Imaging studies reviewed. (See chart for details) Will obtain basic set of labs and then call Dr. Argueta his [place]. Labs are unremarkable with exception of glucose of 436 (will give 10 of IV insulin) and creatinine of 2.8 which has improved since last set of labs. Discussed with Dr. Argueta ([id number]) who asked that the patient be admitted to hosp ital and IR be consulted. Will page Dr. Dukes. Dr. Dukes agrees to admission ([id number]). IR performed procedure and fixed HD shunt. HD catheter is now working. BG is 172. Nursing discussed with Dr. Dukes who is ok with patient being discharged but is unable to do it currently due to being away from hospital. Will d/c home (1600). (SVEN DALTON APRN) Course & Med Decision Making Staff Physician Addendum: I was working in the ER during the course of this patient's visit. I was available for consultation as needed, but I was not directly involved in the care of this patient. (DWIGHT FORD MD) Dragon Disclaimer Dragon Disclaimer This electronic medical record was generated, in whole or in part, using a voice recognition dictation system. (SVEN DALTON APRN) Departure Departure Impression: Primary Impression: Dialysis catheter clot or failure Additional Impression: Hyperglycemia Disposition: 01 HOME, SELF-CARE Admitting Physician: MIRANDA (SVEN DALTON APRN) Condition: STABLE Referrals: NO PCP (PCP) Patient Instructions: Dialysis (AV) Shunt, Malfunction Additional Instructions: Thank you for visiting [facility]. We appreciate you trusting us with your care. If any additional problems come up don't hesitate to return to visit us. Please follow up with your primary care provider so they can plan ad ditional care if needed and know about the problem that you had. If symptoms worsen come back to the Emergency Department. Any concerning symptoms that start such as chest pain, shortness of air, weakness or numbness on one side of the body, running high fevers or any other concerning symptoms return to the ER. Please obtain a primary care doctor for further care, please continue with dialysis as scheduled tomorrow. Scripts No Active Prescriptions or Reported Meds Problem Qualifiers SVEN DALTON APRN Mar 11, 2019 09:29 DWIGHT FORD MD Mar 14, 2019 08:25
[2019-03-11 09:55] LABS: CALCIUM 8.9 mg/dL (8.5-10.1); CREATININE 2.8 mg/dL (0.7-1.3); POTASSIUM 4.1 mmol/L (3.5-5.1)
[2019-03-11 10:01] LABS: ALBUMIN/GLOBULIN RATIO 0.7 (1.0-1.7); TOTAL BILIRUBIN 0.4 mg/dL (0.2-1.0); TOTAL PROTEIN 7.4 g/dL (6.4-8.2)
[2019-03-11 10:11] LABS: BASO # 0.1 x10^3/uL (0.0-0.2); BASO % 2 % (0-3); EOS # 0.2 x10^3/uL (0.0-0.7); EOS % 3 % (0-3); HEMATOCRIT 27.9 % (39.0-53.0); HEMOGLOBIN 9.5 g/dL (13.0-17.5); LYMPH # 0.8 x10^3/uL (1.0-4.8); LYMPH % 13 % (24-48); MEAN CORPUSCULAR HEMOGLOBIN 33 pg (25-35); MEAN CORPUSCULAR HGB CONC 34 g/dL (31-37); MEAN CORPUSCULAR VOLUME 96 fL (79-100); MONO # 0.5 x10^3/uL (0.0-1.1); MONO % 9 % (0-9); NEUT # 4.4 x10^3/uL (1.8-7.7); NEUT % 74 % (31-73); PLATELET COUNT 247 x10^3/uL (140-400); RED BLOOD COUNT 2.89 x10^6/uL (4.30-5.70)
[2019-03-11] MEDS ORDERED: ACETAMINOPHEN 500 MG TABLET PO PRN (11:00)
[2019-03-11] MEDS ORDERED: INSULIN REGULAR 100 UNIT/ML 3ML VIAL. IV ONE (11:00)
[2019-03-11] MEDS ORDERED: ACETAMINOPHEN/CODEINE 300/30MG TABLET. PO PRN (11:00)
[2019-03-11] MEDS ORDERED: ONDANSETRON PF 4 MG/2 ML VIAL. IV PRN (11:00)
[2019-03-11] MEDS ORDERED: DEXTROSE 50% 25 GM / 50ML DISP.SYRIN. IV PRN (11:00)
[2019-03-11] MEDS ORDERED: IV DEXTROSE 5% 250 ML BAG. IV PRN (11:00)
[2019-03-11] MEDS ORDERED: MORPHINE SULFATE 2 MG/ML VIAL. IV PRN (11:00)
[2019-03-11] MEDS ORDERED: INSULIN LISPRO 300 UNITS/3 ML VIAL. SQ SCH (12:00)
--- NOTE | 2019-03-11 12:25 | PDOC1 ---
History and Physical Date of Admission Date of Admission DATE: 03/11/19 TIME: 12:19 Identification/Chief Complaint Chief Complaint Malfunctioning HD catheter Source Source: Caregiver, Chart review, Patient History of Present Illness History of Present Illness 53-year-old male, I see at the emergency room, sent in by renal service because of reports of malfunctioning HD catheter. He was able to complete dialysis yesterday, he has a right permanent catheter for the past 3 weeks. He's a recent dialysis for uncontrolled diabetes, and unable to afford insulin. Blood sugars are running 300s at home. Also hypertension which is rather controlled. Hemoglobin 9.5, creatinine 2.8 with GFR of 29. Patient's last meal was this morning 8 AM. I'm consulting IR, making nothing by mouth until we are sure that there is no procedure to be done today Full code Seen at ER #20 Past Medical History Cardiovascular: HTN, Hyperlipidemia Endocrine: Diabetes Past Surgical History Past Surgical History: No pertinent history Family History Family History: Diabetes Social History Smoke: No ALCOHOL: none Drugs: None Current Problem List Problem List Problems Medical Problems: (1) Dialysis catheter clot or failure Status: Acute (2) Hyperglycemia Status: Acute Current Medications Current Medications Current Medications Insulin Human Regular (HumuLIN R VIAL) 10 unit 1X ONCE IV Last administered on 03/11/19at 10:28; Start 03/11/19 at 11:00; Stop 03/11/19 at 11:01; Status DC Insulin Human Lispro (HumaLOG) 0-9 UNITS TIDWMEALS SQ ; Start 03/11/19 at 12:00 Dextrose (Dextrose 50%-Water Syringe) 12.5 gm PRN Q15MIN PRN IV SEE COMMENTS; Start 03/11/19 at 11:00 Dextrose 250 ml PRN Q15MIN PRN IV SEE COMMENTS; Start 03/11/19 at 11:00 Acetaminophen (Tylenol) 500 mg PRN Q6HRS PRN PO MILD PAIN / TEMP; Start 03/11/19 at 11:00 Acetaminophen/ Codeine Phosphate (Tylenol #3) 1 tab PRN Q6HRS PRN PO MODERATE PAIN; Start 03/11/19 at 11:00 Ondansetron HCl (Zofran) 4 mg PRN Q6HRS PRN IV NAUSEA/VOMITING; Start 03/11/19 at 11:00 Morphine Sulfate (Morphine Sulfate) 2 mg PRN Q2HR PRN IV PAIN; Start 03/11/19 at 11:00 Active Scripts Active No Active Prescriptions or Reported Medications Allergies Allergies: Coded Allergies: No Known Drug Allergies (Unverified , 02/11/19) ROS Review of System A 14 point ROS was completed with the following noted as positive: Other systems reviewed and negative. \CONSTITUTIONAL: No fever or chills EYES: No recent changes SKIN: No rash or itching CARDIOVASCULAR: No chest pain, syncope, palpitations, or edema RESPIRATORY: No SOB or cough GASTROINTESTINAL: No nausea, vomiting or abdominal pain NEUROLOGICAL: No headaches or weakness ENDOCRINE: No cold or heat intolerance GENITOURINARY: No urgency or frequency of urination MUSCULOSKELETAL: No back pain or joint pain LYMPHATICS: No enlarged lymph nodes PSYCHIATRIC: No anxiety or depression Physical Exam General: Alert, Oriented X3, Cooperative, No acute distress, Other (right permanent HD catheter) HEENT: Atraumatic, PERRLA, EOMI Lungs: Clear to auscultation, Normal air movement Heart: S1S2, RRR, no thrills, no rubs, no gallops, no murmurs Cardiovascular: S1 Abdomen: Normal bowel sounds, Soft, No tenderness, No hepatosplenomegaly, No masses Rectal Exam: not examined, mass PELVIC: Nml ext genitalia Extremities: No clubbing, No cyanosis, No edema, Normal pulses, No tenderness/swelling Skin: No rashes, No breakdown, No significant lesion Neuro: Normal gait, Normal speech, Strength at 5/5 X4 ext, Normal tone, Sensation intact, Cranial nerves 3-12 NL, Reflexes 2+ Psych/Mental Status: Mental status NL, Mood NL Vitals Vitals Vital Signs Date Time Temp Pulse Resp B/P (MAP) Pulse Ox O2 Delivery O2 Flow Rate FiO2 03/11/19 09:55 86 18 104/72 (83) 98 Room Air 03/11/19 09:21 98.7 98.7 Labs Labs Laboratory Tests Test 03/11/19 09:35 White Blood Count 6.0 x10^3/uL (4.0-11.0) Red Blood Count 2.89 x10^6/uL (4.30-5.70) Hemoglobin 9.5 g/dL (13.0-17.5) Hematocrit 27.9 % (39.0-53.0) Mean Corpuscular Volume 96 fL (79-100) Mean Corpuscular Hemoglobin 33 pg (25-35) Mean Corpuscular Hemoglobin Concent 34 g/dL (31-37) Red Cell Distribution Width 14.0 % (11.5-14.5) Platelet Count 247 x10^3/uL (140-400) Neutrophils (%) (Auto) 74 % (31-73) Lymphocytes (%) (Auto) 13 % (24-48) Monocytes (%) (Auto) 9 % (0-9) Eosinophils (%) (Auto) 3 % (0-3) Basophils (%) (Auto) 2 % (0-3) Neutrophils # (Auto) 4.4 x10^3/uL (1.8-7.7) Lymphocytes # (Auto) 0.8 x10^3/uL (1.0-4.8) Monocytes # (Auto) 0.5 x10^3/uL (0.0-1.1) Eosinophils # (Auto) 0.2 x10^3/uL (0.0-0.7) Basophils # (Auto) 0.1 x10^3/uL (0.0-0.2) Sodium Level 138 mmol/L (136-145) Potassium Level 4.1 mmol/L (3.5-5.1) Chloride Level 99 mmol/L (98-107) Carbon Dioxide Level 30 mmol/L (21-32) Anion Gap 9 (6-14) Blood Urea Nitrogen 12 mg/dL (8-26) Creatinine 2.8 mg/dL (0.7-1.3) Estimated GFR (Cockcroft-Gault) 24.0 BUN/Creatinine Ratio 4 (6-20) Glucose Level 436 mg/dL (70-99) Calcium Level 8.9 mg/dL (8.5-10.1) Total Bilirubin 0.4 mg/dL (0.2-1.0) Aspartate Amino Transf (AST/SGOT) 14 U/L (15-37) Alanine Aminotransferase (ALT/SGPT) 28 U/L (16-63) Alkaline Phosphatase 166 U/L (46-116) Total Protein 7.4 g/dL (6.4-8.2) Albumin 3.0 g/dL (3.4-5.0) Albumin/Globulin Ratio 0.7 (1.0-1.7) Laboratory Tests Test 03/11/19 09:35 White Blood Count 6.0 x10^3/uL (4.0-11.0) Red Blood Count 2.89 x10^6/uL (4.30-5.70) Hemoglobin 9.5 g/dL (13.0-17.5) Hematocrit 27.9 % (39.0-53.0) Mean Corpuscular Volume 96 fL (79-100) Mean Corpuscular Hemoglobin 33 pg (25-35) Mean Corpuscular Hemoglobin Concent 34 g/dL (31-37) Red Cell Distribution Width 14.0 % (11.5-14.5) Platelet Count 247 x10^3/uL (140-400) Neutrophils (%) (Auto) 74 % (31-73) Lymphocytes (%) (Auto) 13 % (24-48) Monocytes (%) (Auto) 9 % (0-9) Eosinophils (%) (Auto) 3 % (0-3) Basophils (%) (Auto) 2 % (0-3) Neutrophils # (Auto) 4.4 x10^3/uL (1.8-7.7) Lymphocytes # (Auto) 0.8 x10^3/uL (1.0-4.8) Monocytes # (Auto) 0.5 x10^3/uL (0.0-1.1) Eosinophils # (Auto) 0.2 x10^3/uL (0.0-0.7) Basophils # (Auto) 0.1 x10^3/uL (0.0-0.2) Sodium Level 138 mmol/L (136-145) Potassium Level 4.1 mmol/L (3.5-5.1) Chloride Level 99 mmol/L (98-107) Carbon Dioxide Level 30 mmol/L (21-32) Anion Gap 9 (6-14) Blood Urea Nitrogen 12 mg/dL (8-26) Creatinine 2.8 mg/dL (0.7-1.3) Estimated GFR (Cockcroft-Gault) 24.0 BUN/Creatinine Ratio 4 (6-20) Glucose Level 436 mg/dL (70-99) Calcium Level 8.9 mg/dL (8.5-10.1) Total Bilirubin 0.4 mg/dL (0.2-1.0) Aspartate Amino Transf (AST/SGOT) 14 U/L (15-37) Alanine Aminotransferase (ALT/SGPT) 28 U/L (16-63) Alkaline Phosphatase 166 U/L (46-116) Total Protein 7.4 g/dL (6.4-8.2) Albumin 3.0 g/dL (3.4-5.0) Albumin/Globulin Ratio 0.7 (1.0-1.7) VTE Prophylaxis Ordered VTE Prophylaxis Devices: Yes VTE Pharmacological Prophylaxi: Yes Assessment/Plan Assessment/Plan None functioning right permanent HD catheter Anemia of ESRD ESRD on Sunday AOCD Hypertension controlled DM 2 insulin req but none compliant bec of cost issues PLAn: Med surg floor NPO until IR consult HD per renal Renal consult Ok to resume home meds except any blood thinners, nsaids, asa in case IR intervention FULL CODE dw ROSI THOMPSON MD Mar 11, 2019 12:25
[2019-03-11 13:04] LABS: PROTHROMBIN TIME PATIENT 12.8 SEC (11.7-14.0)
[2019-03-11] MEDS ORDERED: MIDAZOLAM HCL/PF 2 MG/2 ML VIAL. IV ONE (14:45)
[2019-03-11] MEDS ORDERED: LIDOCAINE 1%/EPI 1:100,000 20 ML VIAL. INJ ONE (14:45)
[2019-03-11] MEDS ORDERED: fentaNYL PF VIAL 100 MCG/2 ML VIAL IV ONE (14:45)
[2019-03-11 15:38] VITALS: BP 149/78
--- NOTE | 2019-03-11 16:02 | RAD ---
Chest radiograph 03/11/2019 1:16 PM INDICATION: Dialysis catheter positioned COMPARISON: 02/11/2019 TECHNIQUE: Portable upright frontal view of the chest is provided. FINDINGS: The cardiomediastinal silhouette is within normal limits. Right IJ dialysis catheter is identified with the distal tip projecting over the cavoatrial junction. There are no pleural effusions. There is no pulmonary vascular congestion. There is no pneumothorax. The lungs are clear. No significant osseous abnormality is identified. IMPRESSION: No acute cardiopulmonary process. Right IJ dialysis catheter is identified with the distal tip projecting over the cavoatrial junction. Electronically signed by: Pretty Deal MD (03/11/2019 3:59 PM) [facility]
--- NOTE | 2019-03-11 16:16 | RAD ---
Replacement of right internal jugular tunnel dialysis catheter 03/11/2019 Indication: Nonfunctional right internal jugular dialysis catheter Discussion: The procedure was explained in its entirety to the patient or the patients designated service representative by a member of the treatment team, including a discussion of the risks, benefits and commonly accepted alternatives to the procedure, as well as the expected consequences of no therapy whatsoever. Discussion of the risks included, but was not limited to, those that are most frequent and those that are rare but possibly severe or life-threatening, as well as the possibility of unforeseen complications. All elements of maximal sterile barrier technique including the use of a cap, mask, sterile gown, sterile gloves, large sterile sheet, appropriate hand hygiene, and 2% chlorhexidine for cutaneous antisepsis (or acceptable alternative antiseptic per current guidelines) were followed for this procedure. The right neck and chest including the pre-existing catheter were prepped and draped as described. A guidewire was advanced into the IVC. The catheter was removed over this wire. A new 28 cm tip to cuff palindrome dialysis catheter was advanced such the catheter tip was in the mid right atrium with the patient supine. The new catheter was found to flush and aspirate normally. The new catheter was flushed, secured in place, and sterile dressings were applied. No immediate complications were identified. Fluoroscopy time: 1.5 MIN Dose area product:: 2 Gycm2 IMPRESSION: Replacement of right internal jugular tunneled hemodialysis catheter as described
--- NOTE | 2019-03-11 18:04 | PDOC3 ---
Discharge Summary Visit Information Date of Admission: Mar 11, 2019 Date of Discharge: Mar 11, 2019 Admitting Diagnosis Comment: malfunctioning HD cath, resolved - fixed by IR Final Diagnosis Problems Medical Problems: (1) Dialysis catheter clot or failure Status: Acute (2) Hyperglycemia Status: Acute Brief Hospital Course Allergies Allergies Coded Allergies Type Severity Reaction Last Updated Verified No Known Drug Allergies 02/11/19 No Vital Signs Vital Signs Date Time Temp Pulse Resp B/P (MAP) Pulse Ox O2 Delivery O2 Flow Rate FiO2 03/11/19 15:38 149/78 (101) 03/11/19 14:25 82 18 98 Room Air 03/11/19 09:21 98.7 98.7 Lab Results Laboratory Tests Test 03/11/19 09:35 03/11/19 15:39 White Blood Count 6.0 x10^3/uL (4.0-11.0) Red Blood Count 2.89 x10^6/uL (4.30-5.70) Hemoglobin 9.5 g/dL (13.0-17.5) Hematocrit 27.9 % (39.0-53.0) Mean Corpuscular Volume 96 fL (79-100) Mean Corpuscular Hemoglobin 33 pg (25-35) Mean Corpuscular Hemoglobin Concent 34 g/dL (31-37) Red Cell Distribution Width 14.0 % (11.5-14.5) Platelet Count 247 x10^3/uL (140-400) Neutrophils (%) (Auto) 74 % (31-73) Lymphocytes (%) (Auto) 13 % (24-48) Monocytes (%) (Auto) 9 % (0-9) Eosinophils (%) (Auto) 3 % (0-3) Basophils (%) (Auto) 2 % (0-3) Neutrophils # (Auto) 4.4 x10^3/uL (1.8-7.7) Lymphocytes # (Auto) 0.8 x10^3/uL (1.0-4.8) Monocytes # (Auto) 0.5 x10^3/uL (0.0-1.1) Eosinophils # (Auto) 0.2 x10^3/uL (0.0-0.7) Basophils # (Auto) 0.1 x10^3/uL (0.0-0.2) Prothrombin Time 12.8 SEC (11.7-14.0) Prothromb Time International Ratio 1.0 (0.8-1.1) Sodium Level 138 mmol/L (136-145) Potassium Level 4.1 mmol/L (3.5-5.1) Chloride Level 99 mmol/L (98-107) Carbon Dioxide Level 30 mmol/L (21-32) Anion Gap 9 (6-14) Blood Urea Nitrogen 12 mg/dL (8-26) Creatinine 2.8 mg/dL (0.7-1.3) Estimated GFR (Cockcroft-Gault) 24.0 BUN/Creatinine Ratio 4 (6-20) Glucose Level 436 mg/dL (70-99) Calcium Level 8.9 mg/dL (8.5-10.1) Total Bilirubin 0.4 mg/dL (0.2-1.0) Aspartate Amino Transf (AST/SGOT) 14 U/L (15-37) Alanine Aminotransferase (ALT/SGPT) 28 U/L (16-63) Alkaline Phosphatase 166 U/L (46-116) Total Protein 7.4 g/dL (6.4-8.2) Albumin 3.0 g/dL (3.4-5.0) Albumin/Globulin Ratio 0.7 (1.0-1.7) Glucose (Fingerstick) 172 mg/dL (70-99) Laboratory Tests Test 03/11/19 09:35 03/11/19 15:39 White Blood Count 6.0 x10^3/uL (4.0-11.0) Red Blood Count 2.89 x10^6/uL (4.30-5.70) Hemoglobin 9.5 g/dL (13.0-17.5) Hematocrit 27.9 % (39.0-53.0) Mean Corpuscular Volume 96 fL (79-100) Mean Corpuscular Hemoglobin 33 pg (25-35) Mean Corpuscular Hemoglobin Concent 34 g/dL (31-37) Red Cell Distribution Width 14.0 % (11.5-14.5) Platelet Count 247 x10^3/uL (140-400) Neutrophils (%) (Auto) 74 % (31-73) Lymphocytes (%) (Auto) 13 % (24-48) Monocytes (%) (Auto) 9 % (0-9) Eosinophils (%) (Auto) 3 % (0-3) Basophils (%) (Auto) 2 % (0-3) Neutrophils # (Auto) 4.4 x10^3/uL (1.8-7.7) Lymphocytes # (Auto) 0.8 x10^3/uL (1.0-4.8) Monocytes # (Auto) 0.5 x10^3/uL (0.0-1.1) Eosinophils # (Auto) 0.2 x10^3/uL (0.0-0.7) Basophils # (Auto) 0.1 x10^3/uL (0.0-0.2) Prothrombin Time 12.8 SEC (11.7-14.0) Prothromb Time International Ratio 1.0 (0.8-1.1) Sodium Level 138 mmol/L (136-145) Potassium Level 4.1 mmol/L (3.5-5.1) Chloride Level 99 mmol/L (98-107) Carbon Dioxide Level 30 mmol/L (21-32) Anion Gap 9 (6-14) Blood Urea Nitrogen 12 mg/dL (8-26) Creatinine 2.8 mg/dL (0.7-1.3) Estimated GFR (Cockcroft-Gault) 24.0 BUN/Creatinine Ratio 4 (6-20) Glucose Level 436 mg/dL (70-99) Calcium Level 8.9 mg/dL (8.5-10.1) Total Bilirubin 0.4 mg/dL (0.2-1.0) Aspartate Amino Transf (AST/SGOT) 14 U/L (15-37) Alanine Aminotransferase (ALT/SGPT) 28 U/L (16-63) Alkaline Phosphatase 166 U/L (46-116) Total Protein 7.4 g/dL (6.4-8.2) Albumin 3.0 g/dL (3.4-5.0) Albumin/Globulin Ratio 0.7 (1.0-1.7) Glucose (Fingerstick) 172 mg/dL (70-99) Brief Hospital Course Mr. Ramírez is a 53 old [sex] who presented with [ ] History of Present Illness 53-year-old male, I see at the emergency room, sent in by renal service because of reports of malfunctioning HD catheter. He was able to complete dialysis yesterday, he has a right permanent catheter for the past 3 weeks. He's a recent dialysis for uncontrolled diabetes, and unable to afford insulin. Blood sugars are running 300s at home. Also hypertension which is rather controlled. Hemoglobin 9.5, creatinine 2.8 with GFR of 29. Patient's last meal was this morning 8 AM. I'm consulting IR, making nothing by mouth until we are sure that there is no procedure to be done today COURSE; IR fixed it, functioning fine now, HOME TODAY Discharge Information Condition at Discharge: Improved, Stable Disposition/Orders: D/C to Home No Active Prescriptions or Reported Meds ROSI THOMPSON MD Mar 11, 2019 18:04
== END 2019-03-11 18:12 | disposition home or self-care (01) ==
LOC: ER 09:16 → ED HOLD 10:55 → 5 SOUTH 16:42 → ED HOLD 16:42
PROVIDERS: ADMIT Internal Medicine; ATTEND Internal Medicine
DX: T82.41XA Breakdown (mechanical) of vascular dialysis catheter, initial encounter (principal); E11.22 Type 2 diabetes mellitus with diabetic chronic kidney disease; I12.0 Hypertensive chronic kidney disease with stage 5 chronic kidney disease or end stage renal disease; N18.6 End stage renal disease; D63.1 Anemia in chronic kidney disease; Z99.2 Dependence on renal dialysis; E78.5 Hyperlipidemia, unspecified; E11.65 Type 2 diabetes mellitus with hyperglycemia; Z83.3 Family history of diabetes mellitus; Y71.2 Prosthetic and other implants, materials and accessory cardiovascular devices associated with adverse incidents
CPT/HCPCS: 36415; 36581; 71045; 77001; 80053; 82962; 83036; 85025; 85610; 96365; 96375; 99284; C1750; C1769; G0378; J0690; J1815; J3490; G0379

== ENCOUNTER 2019-04-26 12:41 | Inpatient (IN) | payer SELFPAY ==
[~2019-04-26] VITALS: Ht 177.8 cm; Wt 74.2 kg
[2019-04-26 14:13] LABS: BASO # 0.2 x10^3/uL (0.0-0.2); BASO % 4 % (0-3); EOS # 0.5 x10^3/uL (0.0-0.7); EOS % 10 % (0-3); HEMATOCRIT 38.8 % (39.0-53.0); LYMPH # 0.9 x10^3/uL (1.0-4.8); LYMPH % 17 % (24-48); MEAN CORPUSCULAR HEMOGLOBIN 32 pg (25-35); MEAN CORPUSCULAR HGB CONC 34 g/dL (31-37); MEAN CORPUSCULAR VOLUME 95 fL (79-100); MONO # 0.5 x10^3/uL (0.0-1.1); MONO % 9 % (0-9); NEUT # 3.2 x10^3/uL (1.8-7.7); NEUT % 60 % (31-73); PLATELET COUNT 279 x10^3/uL (140-400); RED BLOOD COUNT 4.09 x10^6/uL (4.30-5.70); RED CELL DISTRIBUTION WIDTH 13.8 % (11.5-14.5); WHITE BLOOD COUNT 5.3 x10^3/uL (4.0-11.0)
[2019-04-26 14:23] LABS: PROTHROMBIN TIME PATIENT 12.3 SEC (11.7-14.0)
[2019-04-26 14:34] LABS: ALBUMIN 3.7 g/dL (3.4-5.0); CALCIUM 8.9 mg/dL (8.5-10.1); CREATININE 2.2 mg/dL (0.7-1.3); GFR 31.7; POTASSIUM 4.8 mmol/L (3.5-5.1); TOTAL BILIRUBIN 0.2 mg/dL (0.2-1.0); TOTAL PROTEIN 7.5 g/dL (6.4-8.2)
--- NOTE | 2019-04-26 14:35 | RAD ---
Exam performed: One view chest. Indication: Catheter fell out Date of Service: 04/26/2019 1:51 PM Comparison: One view chest from 03/11/2019. Single AP upright portable view chest findings: Cardiomediastinal silhouette is within limits of normal. No acute infiltrates, effusion or pneumothorax is detected. The bony structures are normal. Impression: No acute cardiopulmonary process is detected. Electronically signed by: Jessy Hayden MD (04/26/2019 2:32 PM) [facility]
[2019-04-26 14:44] LABS: % BASOS 1 % (0-3); % EOS 9 % (0-5); % LYMPHS 19 % (24-48); % MONOS 8 % (0-10); % SEGS 63 % (35-66); PLT ESTIMATE ADEQUATE (ADEQUATE)
[2019-04-26] MEDS ORDERED: INSULIN REGULAR 100 UNIT/ML 3ML VIAL. IV ONE (15:45)
--- NOTE | 2019-04-26 15:58 | PHYS DOC ---
Past Medical History Past Medical History: Diabetes-Type II Past Surgical History: No Surgical History Alcohol Use: None Drug Use: None Adult General Chief Complaint Chief Complaint: DIALYSIS PROBLEM HPI HPI Patient is a 53 year old male dialysis catheter fell out he said it just fell out while he was standing there denies any trauma no bleeding no shortness of breath had dialysis yesterday he says he has most of his medications but he does not know what they are he claims he does not have a doctor here at all. Review of Systems Review of Systems Constitutional: Denies fever or chills [] Eyes: Denies change in visual acuity, redness, or eye pain [] Musculoskeletal: Denies back pain or joint pain [] Integument: Denies rash or skin lesions [] Neurologic: Denies headache, focal weakness or sensory changes [] Endocrine: Denies polyuria or polydipsia [] All other systems were reviewed and found to be within normal limits, except as documented in this note. Current Medications Current Medications Current Medications Medications (Trade) Dose Ordered Sig/Ismael Start Time Stop Time Status Last Admin Dose Admin Insulin Human Regular (HumuLIN R VIAL) 5 unit 1X ONCE 04/26/19 15:45 04/26/19 15:46 DC Allergies Allergies Allergies Coded Allergies Type Severity Reaction Last Updated Verified No Known Drug Allergies 02/11/19 No Physical Exam Physical Exam Constitutional: Well developed, well nourished, no acute distress, non-toxic appearance. [] HENT: Normocephalic, atraumatic, bilateral external ears normal, oropharynx mois t, no oral exudates, nose normal. [] Eyes: PERRLA, EOMI, conjunctiva normal, no discharge. [] Neck: Normal range of motion, no tenderness, supple, no stridor. [] Cardiovascular:Heart rate regular rhythm, no murmur [] Lungs & Thorax: Bilateral breath sounds clear to auscultation []there is a recent appearing hole in the right chest no active bleeding no crepitus no hematoma no signs of infection Abdomen: Bowel sounds normal, soft, no tenderness, no masses, no pulsatile masses. [] Skin: Warm, dry, no erythema, no rash. [] Back: No tenderness, no CVA tenderness. [] Extremities: No tenderness, no cyanosis, no clubbing, ROM intact, no edema. [] Neurologic: Alert and oriented X 3, normal motor function, normal sensory function, no focal deficits noted. [] Psychologic: Affect normal, judgement normal, mood normal. [] Current Patient Data Vital Signs Vital Signs Date Time Temp Pulse Resp B/P (MAP) Pulse Ox O2 Delivery O2 Flow Rate FiO2 04/26/19 13:30 98.4 99 18 147/85 (105) 98 Room Air 98.4 Lab Values Laboratory Tests Test 04/26/19 14:00 White Blood Count 5.3 x10^3/uL (4.0-11.0) Red Blood Count 4.09 x10^6/uL (4.30-5.70) L Hemoglobin 13.0 g/dL (13.0-17.5) Hematocrit 38.8 % (39.0-53.0) L Mean Corpuscular Volume 95 fL (79-100) Mean Corpuscular Hemoglobin 32 pg (25-35) Mean Corpuscular Hemoglobin Concent 34 g/dL (31-37) Red Cell Distribution Width 13.8 % (11.5-14.5) Platelet Count 279 x10^3/uL (140-400) Neutrophils (%) (Auto) 60 % (31-73) Lymphocytes (%) (Auto) 17 % (24-48) L Monocytes (%) (Auto) 9 % (0-9) Eosinophils (%) (Auto) 10 % (0-3) H Basophils (%) (Auto) 4 % (0-3) H Neutrophils # (Auto) 3.2 x10^3/uL (1.8-7.7) Lymphocytes # (Auto) 0.9 x10^3/uL (1.0-4.8) L Monocytes # (Auto) 0.5 x10^3/uL (0.0-1.1) Eosinophils # (Auto) 0.5 x10^3/uL (0.0-0.7) Basophils # (Auto) 0.2 x10^3/uL (0.0-0.2) Segmented Neutrophils % 63 % (35-66) Lymphocytes % 19 % (24-48) L Monocytes % 8 % (0-10) Eosinophils % 9 % (0-5) H Basophils % 1 % (0-3) Platelet Estimate Adequate (ADEQUATE) Prothrombin Time 12.3 SEC (11.7-14.0) Prothrombin Time INR 0.9 (0.8-1.1) Sodium Level 130 mmol/L (136-145) L Potassium Level 4.8 mmol/L (3.5-5.1) Chloride Level 95 mmol/L (98-107) L Carbon Dioxide Level 29 mmol/L (21-32) Anion Gap 6 (6-14) Blood Urea Nitrogen 22 mg/dL (8-26) Creatinine 2.2 mg/dL (0.7-1.3) H Estimated GFR (Cockcroft-Gault) 31.7 BUN/Creatinine Ratio 10 (6-20) Glucose Level 635 mg/dL (70-99) *H Calcium Level 8.9 mg/dL (8.5-10.1) Total Bilirubin 0.2 mg/dL (0.2-1.0) Aspartate Amino Transferase (AST) 12 U/L (15-37) L Alanine Aminotransferase (ALT) 27 U/L (16-63) Alkaline Phosphatase 209 U/L (46-116) H Troponin I Quantitative < 0.017 ng/mL (0.000-0.055) GJ-Nhq-H-Type Natriuretic Peptide 126 pg/mL (0-124) H Total Protein 7.5 g/dL (6.4-8.2) Albumin 3.7 g/dL (3.4-5.0) Albumin/Globulin Ratio 1.0 (1.0-1.7) Laboratory Tests 04/26/19 14:00 Laboratory Tests 04/26/19 14:00 EKG EKG []Normal sinus rhythm rate 87 no STEMI no hyperkalemia changes intervals normal Radiology/Procedures Radiology/Procedures [] Impressions: Chest x-ray clear Course & Med Decision Making Course & Med Decision Making Pertinent Labs and Imaging studies reviewed. (See chart for details) []Discussed with Anita for admission for care complaining of replacement dialysis catheter and treatment of hyperglycemia insulin was given in the emergency room I held off on IV fluids due to patient's end-stage renal status and no dialysis access at this time although does not need any kind of emergency dialysis i at this time however does not have any good primary care follow-up he tells me Dragon Disclaimer Dragon Disclaimer This electronic medical record was generated, in whole or in part, using a voice recognition dictation system. Departure Departure Impression: Primary Impression: Dialysis catheter clot or failure Additional Impression: Hyperglycemia Disposition: 09 ADMITTED INPATIENT Admitting Physician: HIMS Condition: STABLE Referrals: NO PCP (PCP) Scripts No Active Prescriptions or Reported Meds Problem Qualifiers DWIGHT FORD MD Apr 26, 2019 15:57
--- NOTE | 2019-04-26 16:00 | PDOC1 ---
History and Physical Date of Admission Date of Admission DATE: 04/26/19 TIME: 15:57 Identification/Chief Complaint Chief Complaint seen in er , 53 year old male dialysis catheter fell out he said it just fell out while he was standing there denies any trauma no bleeding no shortness of breath had dialysis yesterday DR KNOWLES IS [employer] Past Medical History Past Medical History Past Medical History Cardiovascular: HTN, Hyperlipidemia //ESRD Endocrine: Diabetes Past Surgical History Past Surgical History: No pertinent history Family History Family History: Diabetes Social History Smoke: No ALCOHOL: none Drugs: None disabled Cardiovascular: HTN, Hyperlipidemia Endocrine: Diabetes Past Surgical History Past Surgical History: No pertinent history Family History Family History: Diabetes, Hypertension Social History Smoke: No ALCOHOL: none Drugs: None Current Medications Current Medications Current Medications Insulin Human Regular (HumuLIN R VIAL) 5 unit 1X ONCE IV ; Start 04/26/19 at 15:45; Stop 04/26/19 at 15:46; Status DC Active Scripts Active No Active Prescriptions or Reported Medications Allergies Allergies: Coded Allergies: No Known Drug Allergies (Unverified , 02/11/19) ROS Review of System Review of Systems Review of Systems Constitutional: Denies fever or chills [] Eyes: Denies change in visual acuity, redness, or eye pain [] Musculoskeletal: Denies back pain or joint pain [] Integument: Denies rash or skin lesions [] Neurologic: Denies headache, focal weakness or sensory changes [] Endocrine: Denies polyuria or polydipsia [] 14 PT systems were reviewed and found to be within normal limits, except as documented ALLERGY AND IMMUNOLOGY: No: Hives, Insect Bite Sensitivity, Itchy/Watery Eyes, Nasal Congestion, Post Nasal Drip, Seasonal Allergies, Other Hematological and Lymphatic: No: Bleeding Problems, Blood Clots, Blood Transfusions, Brusing, Night Sweats, Pallor, Swollen Lymph Nodes, Other Respiratory: No: Cough, Hemoptysis, Orthopnea, Pleuritic Pain, Shortness of breath, SOB with excertion, Sputum Changes, Stridor, Tachypnea, Wheezing, Other Gastrointestinal: Yes Nausea; No Vomiting, No Abdominal Pain, No Diarrhea, No Constipation, No Melena, No Hematochezia, No Other Physical Exam Physical Exam Physical Exam Physical Exam Constitutional: Well developed, well nourished, no acute distress, non-toxic appearance. [] HENT: Normocephalic, atraumatic, bilateral external ears normal, oropharynx moist, no oral exudates, nose normal. [] Eyes: PERRLA, EOMI, conjunctiva normal, no discharge. [] Neck: Normal range of motion, no tenderness, supple, no stridor. [] Cardiovascular:Heart rate regular rhythm, no murmur [] Lungs & Thorax: Bilateral breath sounds clear to auscultation []there is a recent appearing hole in the right chest no active bleeding no crepitus no hematoma no signs of infection Abdomen: Bowel sounds normal, soft, no tenderness, no masses, no pulsatile masses. [] Skin: Warm, dry, no erythema, no rash. [] Back: No tenderness, no CVA tenderness. [] Extremities: No tenderness, no cyanosis, no clubbing, ROM intact, no edema. [] Neurologic: Alert and oriented X 3, normal motor function, normal sensory function, no focal deficits noted. [] Psychologic: Affect normal, judgement normal, mood normal. [] General: Alert, Oriented X3, Cooperative, No acute distress HEENT: Atraumatic, PERRLA, EOMI, Mucous membr. moist/pink Lungs: Clear to auscultation, Normal air movement Heart: no thrills Abdomen: Soft Rectal Exam: not examined Extremities: No cyanosis Neuro: Normal speech, Cranial nerves 3-12 NL Psych/Mental Status: Mental status NL, Mood NL Vitals Vitals Vital Signs Date Time Temp Pulse Resp B/P (MAP) Pulse Ox O2 Delivery O2 Flow Rate FiO2 04/26/19 13:30 98.4 99 18 147/85 (105) 98 Room Air 98.4 Labs Labs Laboratory Tests Test 04/26/19 14:00 White Blood Count 5.3 x10^3/uL (4.0-11.0) Red Blood Count 4.09 x10^6/uL (4.30-5.70) Hemoglobin 13.0 g/dL (13.0-17.5) Hematocrit 38.8 % (39.0-53.0) Mean Corpuscular Volume 95 fL (79-100) Mean Corpuscular Hemoglobin 32 pg (25-35) Mean Corpuscular Hemoglobin Concent 34 g/dL (31-37) Red Cell Distribution Width 13.8 % (11.5-14.5) Platelet Count 279 x10^3/uL (140-400) Neutrophils (%) (Auto) 60 % (31-73) Lymphocytes (%) (Auto) 17 % (24-48) Monocytes (%) (Auto) 9 % (0-9) Eosinophils (%) (Auto) 10 % (0-3) Basophils (%) (Auto) 4 % (0-3) Neutrophils # (Auto) 3.2 x10^3/uL (1.8-7.7) Lymphocytes # (Auto) 0.9 x10^3/uL (1.0-4.8) Monocytes # (Auto) 0.5 x10^3/uL (0.0-1.1) Eosinophils # (Auto) 0.5 x10^3/uL (0.0-0.7) Basophils # (Auto) 0.2 x10^3/uL (0.0-0.2) Segmented Neutrophils % 63 % (35-66) Lymphocytes % 19 % (24-48) Monocytes % 8 % (0-10) Eosinophils % 9 % (0-5) Basophils % 1 % (0-3) Platelet Estimate Adequate (ADEQUATE) Prothrombin Time 12.3 SEC (11.7-14.0) Prothromb Time International Ratio 0.9 (0.8-1.1) Sodium Level 130 mmol/L (136-145) Potassium Level 4.8 mmol/L (3.5-5.1) Chloride Level 95 mmol/L (98-107) Carbon Dioxide Level 29 mmol/L (21-32) Anion Gap 6 (6-14) Blood Urea Nitrogen 22 mg/dL (8-26) Creatinine 2.2 mg/dL (0.7-1.3) Estimated GFR (Cockcroft-Gault) 31.7 BUN/Creatinine Ratio 10 (6-20) Glucose Level 635 mg/dL (70-99) Calcium Level 8.9 mg/dL (8.5-10.1) Total Bilirubin 0.2 mg/dL (0.2-1.0) Aspartate Amino Transf (AST/SGOT) 12 U/L (15-37) Alanine Aminotransferase (ALT/SGPT) 27 U/L (16-63) Alkaline Phosphatase 209 U/L (46-116) Troponin I Quantitative < 0.017 ng/mL (0.000-0.055) DY-Skg-I-Type Natriuretic Peptide 126 pg/mL (0-124) Total Protein 7.5 g/dL (6.4-8.2) Albumin 3.7 g/dL (3.4-5.0) Albumin/Globulin Ratio 1.0 (1.0-1.7) Laboratory Tests Test 04/26/19 14:00 White Blood Count 5.3 x10^3/uL (4.0-11.0) Red Blood Count 4.09 x10^6/uL (4.30-5.70) Hemoglobin 13.0 g/dL (13.0-17.5) Hematocrit 38.8 % (39.0-53.0) Mean Corpuscular Volume 95 fL (79-100) Mean Corpuscular Hemoglobin 32 pg (25-35) Mean Corpuscular Hemoglobin Concent 34 g/dL (31-37) Red Cell Distribution Width 13.8 % (11.5-14.5) Platelet Count 279 x10^3/uL (140-400) Neutrophils (%) (Auto) 60 % (31-73) Lymphocytes (%) (Auto) 17 % (24-48) Monocytes (%) (Auto) 9 % (0-9) Eosinophils (%) (Auto) 10 % (0-3) Basophils (%) (Auto) 4 % (0-3) Neutrophils # (Auto) 3.2 x10^3/uL (1.8-7.7) Lymphocytes # (Auto) 0.9 x10^3/uL (1.0-4.8) Monocytes # (Auto) 0.5 x10^3/uL (0.0-1.1) Eosinophils # (Auto) 0.5 x10^3/uL (0.0-0.7) Basophils # (Auto) 0.2 x10^3/uL (0.0-0.2) Segmented Neutrophils % 63 % (35-66) Lymphocytes % 19 % (24-48) Monocytes % 8 % (0-10) Eosinophils % 9 % (0-5) Basophils % 1 % (0-3) Platelet Estimate Adequate (ADEQUATE) Prothrombin Time 12.3 SEC (11.7-14.0) Prothromb Time International Ratio 0.9 (0.8-1.1) Sodium Level 130 mmol/L (136-145) Potassium Level 4.8 mmol/L (3.5-5.1) Chloride Level 95 mmol/L (98-107) Carbon Dioxide Level 29 mmol/L (21-32) Anion Gap 6 (6-14) Blood Urea Nitrogen 22 mg/dL (8-26) Creatinine 2.2 mg/dL (0.7-1.3) Estimated GFR (Cockcroft-Gault) 31.7 BUN/Creatinine Ratio 10 (6-20) Glucose Level 635 mg/dL (70-99) Calcium Level 8.9 mg/dL (8.5-10.1) Total Bilirubin 0.2 mg/dL (0.2-1.0) Aspartate Amino Transf (AST/SGOT) 12 U/L (15-37) Alanine Aminotransferase (ALT/SGPT) 27 U/L (16-63) Alkaline Phosphatase 209 U/L (46-116) Troponin I Quantitative < 0.017 ng/mL (0.000-0.055) MN-Zfi-Y-Type Natriuretic Peptide 126 pg/mL (0-124) Total Protein 7.5 g/dL (6.4-8.2) Albumin 3.7 g/dL (3.4-5.0) Albumin/Globulin Ratio 1.0 (1.0-1.7) Images Images DICATION Elevated Troponin 2D DIMENSIONS RVDd 2.7 (2.9-3.5cm) Left Atrium(2D) 2.2 (1.6-4.0cm) IVSd 0.9 (0.7-1.1cm) Aortic Root(2D) 3.1 (2.0-3.7cm) LVDd 4.5 (3.9-5.9cm) LVOT Diameter 2.0 (1.8-2.4cm) PWd 0.9 (0.7-1.1cm) LVDs 3.0 (2.5-4.0cm) FS (%) 33.1 % SV 58.1 ml LVEF(%) 61.9 (>50%) Aortic Valve AoV Peak Pablo. 138.4cm/s AoV VTI 23.9cm AO Peak GR. 7.7mmHg LVOT VTI 13.48cm AO Mean GR. 7mmHg TDI Lateral E' P. V 7.92cm/s Medial E' P. V 7.25cm/s Tricuspid Valve TR P. Velocity 267cm/s RAP ESTIMATE 3mmHg TR Peak Gr. 32mmHg RVSP 35mmHg Pulmonary Vein S1 Velocity 2.0cm/s S2 Velocity 53.32cm/s D2 Velocity 53.3cm/s PVa duration 86msec LEFT VENTRICLE The left ventricle is normal size. There is normal left ventricular wall thickness. The left ventricular systolic function is normal. The Ejection Fraction is 55-60%. There is normal LV segmental wall motion. Transmitral Doppler flow pattern is Grade I-abnormal relaxation pattern. RIGHT VENTRICLE The right ventricle is borderline dilated. There is normal right ventricular wall thickness. The right ventricular systolic function is normal. ATRIA The left atrium size is normal. The right atrium size is normal. The interatrial septum is intact with no evidence for an atrial septal defect or patent foramen ovale as noted on 2-D or Doppler imaging. AORTIC VALVE The aortic valve is calcified but opens well. Doppler and Color Flow revealed no significant aortic regurgitation. There is no significant aortic valvular stenosis. MITRAL VALVE The mitral valve is normal in structure and function. There is no evidence of mitral valve prolapse. There is no mitral valve stenosis. Doppler and Color Flow revealed no mitral valve regurgitation noted. TRICUSPID VALVE The tricuspid valve is normal in structure and function. Doppler and Color Flow revealed trace tricuspid regurgitation with an estimated PAP of 35 mmHg. There is no tricuspid valve prolapse or vegetation. There is no tricuspid valve stenosis. PULMONIC VALVE The pulmonic valve is not well visualized. Doppler and Color Flow revealed no pulmonic valvular regurgitation. GREAT VESSELS The aortic root is normal in size. The IVC is normal in size and collapses >50% with inspiration. PERICARDIAL EFFUSION There is no evidence of significant pericardial effusion. Critical Notification Critical Value: No <Conclusion> The left ventricular systolic function is normal. The Ejection Fraction is 55-60%. There is normal LV segmental wall motion. Trace tricuspid regurgitation with an estimated PAP of 35 mmHg. There is no evidence of significant pericardial effusion. Signed by : Yvonne Cosby, Electronically Approved : 02/12/2019 16:05:51 DICTATED and SIGNED BY: YVONNE COSBY MD DATE: 02/12/19 5972 MRI Brain without contrast History: Dysphagia Technique: Multiplanar, multisequential noncontrast MR imaging was performed of the brain. Comparison: None Findings: There is mild motion. There is no evidence of recent infarct or cytotoxic edema. The ventricles, sulci, and cisterns are within normal limits in size and configuration. There is no significant midline shift, intraaxial mass effect, or focal abnormal extra-axial fluid collection. There is minimal T2 and FLAIR hyperintense signal near the bilateral frontal horns, also small focus right frontal deep white matter. Left vertebral artery flow-void is hypoplastic. The mastoid air cells are aerated. The cerebellar tonsils are normal in location. There is no significant abnormality of the pineal gland or pituitary gland. There is mild bilateral ethmoid air cell mucosal thickening. There is preserved marrow signal of the clivus. Impression: 1. There is minimal T2 and FLAIR hyperintense signal of the frontal horns and right frontal deep white matter, nonspecific findings likely nonspecific gliosis, degree of which can be seen in asymptomatic individuals. Findings could be due to sequela of chronic microvascular ischemic disease. Otherwise no other significant intracranial abnormality is identified. Electronically signed by: Vanessa Bojorquez MD (02/20/2019 9:54 AM) [id number] DICTATED and SIGNED BY: VANESSA BOJORQUEZ MD DATE: 02/20/19 0954 VTE Prophylaxis Ordered VTE Prophylaxis Devices: Yes VTE Pharmacological Prophylaxi: Yes Assessment/Plan Assessment/Plan DIAGNOSIS/ASSESSMENT ESRD - has been on HD MWF , no renal recovery Access- Tunneled HDC OUT SARAH - suspected ATN at presentation Was initiated on HD ,No improvement in renal function Anemia- On BRAD per protocol HTN - stable DM II- UNCONTROLLED PLAN ADMIT CONSULT NEPHROLOGY DIALYSIS CATHETER SS INSULIN IV NS DVT PROPHYLAXIS, HEPARIN 54 MIN PT EXAM, CHART REVIEW, > 50% OF TIME SPENT WITH EXAM, CHART REVIEW, PT CARE COORDINATION RUFINO GRANDE MD Apr 26, 2019 16:00
[2019-04-26] MEDS ORDERED: 0.9 % SODIUM CHLORIDE 10 ML DISP.SYRIN. IV PRN (18:00)
[2019-04-26] MEDS ORDERED: LORazepam 0.5 MG TABLET PO PRN (18:00)
[2019-04-26] MEDS ORDERED: ONDANSETRON PF 4 MG/2 ML VIAL. IV PRN (18:00)
[2019-04-26] MEDS ORDERED: DEXTROSE 50% 25 GM / 50ML DISP.SYRIN. IV PRN (18:00)
[2019-04-26] MEDS ORDERED: DOCUSATE SODIUM 100 MG CAPSULE. PO PRN (18:00)
[2019-04-26] MEDS ORDERED: ALBUTEROL SULFATE 2.5 MG/3 ML NEBU. NEB PRN (18:00)
[2019-04-26] MEDS ORDERED: ACETAMINOPHEN 325 MG TABLET. PO PRN (18:00)
[2019-04-26] MEDS ORDERED: IV NORMAL SALINE 1000ML BAG 1,000 ML IV SCH (18:00)
[2019-04-26] MEDS: INSULIN LISPRO 300 UNITS/3 ML VIAL. SQ SCH (18:11)
[2019-04-26 19:00] VITALS: BP 118/69
[2019-04-26] MEDS: HEPARIN for SUB-Q USE 5,000 UNIT/ML VIAL. SQ SCH (22:59)
[2019-04-26 23:00] VITALS: BP 122/78
[2019-04-27 03:32] VITALS: BP 104/66
[2019-04-27 06:36] LABS: BASO # 0.2 x10^3/uL (0.0-0.2); BASO % 3 % (0-3); EOS # 0.6 x10^3/uL (0.0-0.7); EOS % 9 % (0-3); HEMATOCRIT 37.4 % (39.0-53.0); HEMOGLOBIN 12.3 g/dL (13.0-17.5); LYMPH # 1.8 x10^3/uL (1.0-4.8); LYMPH % 27 % (24-48); MEAN CORPUSCULAR HEMOGLOBIN 31 pg (25-35); MEAN CORPUSCULAR HGB CONC 33 g/dL (31-37); MEAN CORPUSCULAR VOLUME 95 fL (79-100); MONO # 0.6 x10^3/uL (0.0-1.1); MONO % 9 % (0-9); NEUT # 3.5 x10^3/uL (1.8-7.7); NEUT % 52 % (31-73); PLATELET COUNT 283 x10^3/uL (140-400); RED BLOOD COUNT 3.94 x10^6/uL (4.30-5.70); RED CELL DISTRIBUTION WIDTH 13.6 % (11.5-14.5); WHITE BLOOD COUNT 6.8 x10^3/uL (4.0-11.0)
[2019-04-27] MEDS: HEPARIN for SUB-Q USE 5,000 UNIT/ML VIAL. SQ SCH ×3 (06:41→21:38)
[2019-04-27 06:48] LABS: ALBUMIN 3.3 g/dL (3.4-5.0); CALCIUM 8.9 mg/dL (8.5-10.1); CREATININE 1.9 mg/dL (0.7-1.3); GFR 37.6; PHOSPHORUS 4.5 mg/dL (2.6-4.7)
[2019-04-27 07:00] VITALS: BP 133/79
[2019-04-27] MEDS: INSULIN LISPRO 300 UNITS/3 ML VIAL. SQ SCH ×3 (08:34→17:43)
--- NOTE | 2019-04-27 08:50 | PDOC ---
PROGRESS NOTES Chief Complaint Chief Complaint A/P: ESRD - has been on HD MWF , no renal recovery - Access- Tunneled HDC OUT. Has been outpatient on dialysis since 02/28/19 SARAH - suspected ATN at presentation - Was initiated on HD ,No improvement in renal function Anemia- On BRAD per protocol HTN - stable DM II- UNCONTROLLED, glucose in 600s on admit PLAN ADMIT CONSULT NEPHROLOGY DIALYSIS CATHETER SS INSULIN IV NS DVT PROPHYLAXIS, HEPARIN History of Present Illness History of Present Illness Mr Ramírez is a 53yo M w/ PMHx DM2, HTN, new ESRD, anemia who presents after his dialysis catheter fell out. Found with glucose of 635 and elevated Cr consistent with his renal disease. He notes the sutures had come undone earlier this week and was told not to worry about it. He says he thinks the catheter broke in half. No SOB or CP today. HD cath site clean puncture wound. CXR negative for retained catheter. Vitals Vitals Vital Signs Date Time Temp Pulse Resp B/P (MAP) Pulse Ox O2 Delivery O2 Flow Rate FiO2 04/27/19 03:32 97.6 92 16 104/66 (79) 98 Room Air 97.6 Physical Exam General: Alert, Oriented X3, Cooperative, No acute distress Lungs: Crackles Abdomen: Soft Extremities: No cyanosis Labs LABS Laboratory Tests Test 04/26/19 14:00 04/26/19 17:20 04/26/19 20:14 04/27/19 06:04 White Blood Count 5.3 x10^3/uL (4.0-11.0) 6.8 x10^3/uL (4.0-11.0) Red Blood Count 4.09 x10^6/uL (4.30-5.70) 3.94 x10^6/uL (4.30-5.70) Hemoglobin 13.0 g/dL (13.0-17.5) 12.3 g/dL (13.0-17.5) Hematocrit 38.8 % (39.0-53.0) 37.4 % (39.0-53.0) Mean Corpuscular Volume 95 fL (79-100) 95 fL (79-100) Mean Corpuscular Hemoglobin 32 pg (25-35) 31 pg (25-35) Mean Corpuscular Hemoglobin Concent 34 g/dL (31-37) 33 g/dL (31-37) Red Cell Distribution Width 13.8 % (11.5-14.5) 13.6 % (11.5-14.5) Platelet Count 279 x10^3/uL (140-400) 283 x10^3/uL (140-400) Neutrophils (%) (Auto) 60 % (31-73) 52 % (31-73) Lymphocytes (%) (Auto) 17 % (24-48) 27 % (24-48) Monocytes (%) (Auto) 9 % (0-9) 9 % (0-9) Eosinophils (%) (Auto) 10 % (0-3) 9 % (0-3) Basophils (%) (Auto) 4 % (0-3) 3 % (0-3) Neutrophils # (Auto) 3.2 x10^3/uL (1.8-7.7) 3.5 x10^3/uL (1.8-7.7) Lymphocytes # (Auto) 0.9 x10^3/uL (1.0-4.8) 1.8 x10^3/uL (1.0-4.8) Monocytes # (Auto) 0.5 x10^3/uL (0.0-1.1) 0.6 x10^3/uL (0.0-1.1) Eosinophils # (Auto) 0.5 x10^3/uL (0.0-0.7) 0.6 x10^3/uL (0.0-0.7) Basophils # (Auto) 0.2 x10^3/uL (0.0-0.2) 0.2 x10^3/uL (0.0-0.2) Segmented Neutrophils % 63 % (35-66) Lymphocytes % 19 % (24-48) Monocytes % 8 % (0-10) Eosinophils % 9 % (0-5) Basophils % 1 % (0-3) Platelet Estimate Adequate (ADEQUATE) Prothrombin Time 12.3 SEC (11.7-14.0) Prothromb Time International Ratio 0.9 (0.8-1.1) Sodium Level 130 mmol/L (136-145) 139 mmol/L (136-145) Potassium Level 4.8 mmol/L (3.5-5.1) 4.0 mmol/L (3.5-5.1) Chloride Level 95 mmol/L (98-107) 102 mmol/L (98-107) Carbon Dioxide Level 29 mmol/L (21-32) 28 mmol/L (21-32) Anion Gap 6 (6-14) 9 (6-14) Blood Urea Nitrogen 22 mg/dL (8-26) 25 mg/dL (8-26) Creatinine 2.2 mg/dL (0.7-1.3) 1.9 mg/dL (0.7-1.3) Estimated GFR (Cockcroft-Gault) 31.7 37.6 BUN/Creatinine Ratio 10 (6-20) Glucose Level 635 mg/dL (70-99) 286 mg/dL (70-99) Calcium Level 8.9 mg/dL (8.5-10.1) 8.9 mg/dL (8.5-10.1) Total Bilirubin 0.2 mg/dL (0.2-1.0) Aspartate Amino Transf (AST/SGOT) 12 U/L (15-37) Alanine Aminotransferase (ALT/SGPT) 27 U/L (16-63) Alkaline Phosphatase 209 U/L (46-116) Troponin I Quantitative < 0.017 ng/mL (0.000-0.055) OU-Huk-I-Type Natriuretic Peptide 126 pg/mL (0-124) Total Protein 7.5 g/dL (6.4-8.2) Albumin 3.7 g/dL (3.4-5.0) 3.3 g/dL (3.4-5.0) Albumin/Globulin Ratio 1.0 (1.0-1.7) Glucose (Fingerstick) 259 mg/dL (70-99) 176 mg/dL (70-99) Phosphorus Level 4.5 mg/dL (2.6-4.7) Test 04/27/19 07:48 Glucose (Fingerstick) 279 mg/dL (70-99) Assessment and Plan Assessmemt and Plan Problems Medical Problems: (1) Complication, dialysis catheter clot or failure Status: Acute (2) Hyperglycemia Status: Acute Comment Review of Relevant I have reviewed the following items mindy (where applicable) has been applied. Labs Laboratory Tests Test 04/26/19 14:00 04/26/19 17:20 04/26/19 20:14 04/27/19 06:04 White Blood Count 5.3 x10^3/uL (4.0-11.0) 6.8 x10^3/uL (4.0-11.0) Red Blood Count 4.09 x10^6/uL (4.30-5.70) 3.94 x10^6/uL (4.30-5.70) Hemoglobin 13.0 g/dL (13.0-17.5) 12.3 g/dL (13.0-17.5) Hematocrit 38.8 % (39.0-53.0) 37.4 % (39.0-53.0) Mean Corpuscular Volume 95 fL (79-100) 95 fL (79-100) Mean Corpuscular Hemoglobin 32 pg (25-35) 31 pg (25-35) Mean Corpuscular Hemoglobin Concent 34 g/dL (31-37) 33 g/dL (31-37) Red Cell Distribution Width 13.8 % (11.5-14.5) 13.6 % (11.5-14.5) Platelet Count 279 x10^3/uL (140-400) 283 x10^3/uL (140-400) Neutrophils (%) (Auto) 60 % (31-73) 52 % (31-73) Lymphocytes (%) (Auto) 17 % (24-48) 27 % (24-48) Monocytes (%) (Auto) 9 % (0-9) 9 % (0-9) Eosinophils (%) (Auto) 10 % (0-3) 9 % (0-3) Basophils (%) (Auto) 4 % (0-3) 3 % (0-3) Neutrophils # (Auto) 3.2 x10^3/uL (1.8-7.7) 3.5 x10^3/uL (1.8-7.7) Lymphocytes # (Auto) 0.9 x10^3/uL (1.0-4.8) 1.8 x10^3/uL (1.0-4.8) Monocytes # (Auto) 0.5 x10^3/uL (0.0-1.1) 0.6 x10^3/uL (0.0-1.1) Eosinophils # (Auto) 0.5 x10^3/uL (0.0-0.7) 0.6 x10^3/uL (0.0-0.7) Basophils # (Auto) 0.2 x10^3/uL (0.0-0.2) 0.2 x10^3/uL (0.0-0.2) Segmented Neutrophils % 63 % (35-66) Lymphocytes % 19 % (24-48) Monocytes % 8 % (0-10) Eosinophils % 9 % (0-5) Basophils % 1 % (0-3) Platelet Estimate Adequate (ADEQUATE) Prothrombin Time 12.3 SEC (11.7-14.0) Prothromb Time International Ratio 0.9 (0.8-1.1) Sodium Level 130 mmol/L (136-145) 139 mmol/L (136-145) Potassium Level 4.8 mmol/L (3.5-5.1) 4.0 mmol/L (3.5-5.1) Chloride Level 95 mmol/L (98-107) 102 mmol/L (98-107) Carbon Dioxide Level 29 mmol/L (21-32) 28 mmol/L (21-32) Anion Gap 6 (6-14) 9 (6-14) Blood Urea Nitrogen 22 mg/dL (8-26) 25 mg/dL (8-26) Creatinine 2.2 mg/dL (0.7-1.3) 1.9 mg/dL (0.7-1.3) Estimated GFR (Cockcroft-Gault) 31.7 37.6 BUN/Creatinine Ratio 10 (6-20) Glucose Level 635 mg/dL (70-99) 286 mg/dL (70-99) Calcium Level 8.9 mg/dL (8.5-10.1) 8.9 mg/dL (8.5-10.1) Total Bilirubin 0.2 mg/dL (0.2-1.0) Aspartate Amino Transf (AST/SGOT) 12 U/L (15-37) Alanine Aminotransferase (ALT/SGPT) 27 U/L (16-63) Alkaline Phosphatase 209 U/L (46-116) Troponin I Quantitative < 0.017 ng/mL (0.000-0.055) IC-Dnq-M-Type Natriuretic Peptide 126 pg/mL (0-124) Total Protein 7.5 g/dL (6.4-8.2) Albumin 3.7 g/dL (3.4-5.0) 3.3 g/dL (3.4-5.0) Albumin/Globulin Ratio 1.0 (1.0-1.7) Glucose (Fingerstick) 259 mg/dL (70-99) 176 mg/dL (70-99) Phosphorus Level 4.5 mg/dL (2.6-4.7) Test 04/27/19 07:48 Glucose (Fingerstick) 279 mg/dL (70-99) Laboratory Tests Test 04/26/19 14:00 04/26/19 17:20 04/26/19 20:14 04/27/19 06:04 White Blood Count 5.3 x10^3/uL (4.0-11.0) 6.8 x10^3/uL (4.0-11.0) Red Blood Count 4.09 x10^6/uL (4.30-5.70) 3.94 x10^6/uL (4.30-5.70) Hemoglobin 13.0 g/dL (13.0-17.5) 12.3 g/dL (13.0-17.5) Hematocrit 38.8 % (39.0-53.0) 37.4 % (39.0-53.0) Mean Corpuscular Volume 95 fL (79-100) 95 fL (79-100) Mean Corpuscular Hemoglobin 32 pg (25-35) 31 pg (25-35) Mean Corpuscular Hemoglobin Concent 34 g/dL (31-37) 33 g/dL (31-37) Red Cell Distribution Width 13.8 % (11.5-14.5) 13.6 % (11.5-14.5) Platelet Count 279 x10^3/uL (140-400) 283 x10^3/uL (140-400) Neutrophils (%) (Auto) 60 % (31-73) 52 % (31-73) Lymphocytes (%) (Auto) 17 % (24-48) 27 % (24-48) Monocytes (%) (Auto) 9 % (0-9) 9 % (0-9) Eosinophils (%) (Auto) 10 % (0-3) 9 % (0-3) Basophils (%) (Auto) 4 % (0-3) 3 % (0-3) Neutrophils # (Auto) 3.2 x10^3/uL (1.8-7.7) 3.5 x10^3/uL (1.8-7.7) Lymphocytes # (Auto) 0.9 x10^3/uL (1.0-4.8) 1.8 x10^3/uL (1.0-4.8) Monocytes # (Auto) 0.5 x10^3/uL (0.0-1.1) 0.6 x10^3/uL (0.0-1.1) Eosinophils # (Auto) 0.5 x10^3/uL (0.0-0.7) 0.6 x10^3/uL (0.0-0.7) Basophils # (Auto) 0.2 x10^3/uL (0.0-0.2) 0.2 x10^3/uL (0.0-0.2) Segmented Neutrophils % 63 % (35-66) Lymphocytes % 19 % (24-48) Monocytes % 8 % (0-10) Eosinophils % 9 % (0-5) Basophils % 1 % (0-3) Platelet Estimate Adequate (ADEQUATE) Prothrombin Time 12.3 SEC (11.7-14.0) Prothromb Time International Ratio 0.9 (0.8-1.1) Sodium Level 130 mmol/L (136-145) 139 mmol/L (136-145) Potassium Level 4.8 mmol/L (3.5-5.1) 4.0 mmol/L (3.5-5.1) Chloride Level 95 mmol/L (98-107) 102 mmol/L (98-107) Carbon Dioxide Level 29 mmol/L (21-32) 28 mmol/L (21-32) Anion Gap 6 (6-14) 9 (6-14) Blood Urea Nitrogen 22 mg/dL (8-26) 25 mg/dL (8-26) Creatinine 2.2 mg/dL (0.7-1.3) 1.9 mg/dL (0.7-1.3) Estimated GFR (Cockcroft-Gault) 31.7 37.6 BUN/Creatinine Ratio 10 (6-20) Glucose Level 635 mg/dL (70-99) 286 mg/dL (70-99) Calcium Level 8.9 mg/dL (8.5-10.1) 8.9 mg/dL (8.5-10.1) Total Bilirubin 0.2 mg/dL (0.2-1.0) Aspartate Amino Transf (AST/SGOT) 12 U/L (15-37) Alanine Aminotransferase (ALT/SGPT) 27 U/L (16-63) Alkaline Phosphatase 209 U/L (46-116) Troponin I Quantitative < 0.017 ng/mL (0.000-0.055) WX-Tok-I-Type Natriuretic Peptide 126 pg/mL (0-124) Total Protein 7.5 g/dL (6.4-8.2) Albumin 3.7 g/dL (3.4-5.0) 3.3 g/dL (3.4-5.0) Albumin/Globulin Ratio 1.0 (1.0-1.7) Glucose (Fingerstick) 259 mg/dL (70-99) 176 mg/dL (70-99) Phosphorus Level 4.5 mg/dL (2.6-4.7) Test 04/27/19 07:48 Glucose (Fingerstick) 279 mg/dL (70-99) Medications Current Medications Insulin Human Regular (HumuLIN R VIAL) 5 unit 1X ONCE IV Last administered on 04/26/19at 16:14; Start 04/26/19 at 15:45; Stop 04/26/19 at 15:46; Status DC Sodium Chloride 1,000 ml @ 30 mls/hr Q24H IV ; Start 04/26/19 at 18:00; Stop 04/26/19 at 18:03; Status DC Insulin Human Lispro (HumaLOG) 0-5 UNITS TIDWMEALS SQ Last administered on 04/27/19at 08:34; Start 04/26/19 at 18:00 Dextrose (Dextrose 50%-Water Syringe) 12.5 gm PRN Q15MIN PRN IV SEE COMMENTS; Start 04/26/19 at 18:00 Sodium Chloride (Normal Saline Flush) 3 ml QSHIFT PRN IV AFTER MEDS AND BLOOD DRAWS; Start 04/26/19 at 18:00 Ondansetron HCl (Zofran) 4 mg PRN Q4HRS PRN IV NAUSEA/VOMITING; Start 04/26/19 at 18:00 Acetaminophen (Tylenol) 650 mg PRN Q4HRS PRN PO TEMP OVER 100.4F OR MILD PAIN; Start 04/26/19 at 18:00 Docusate Sodium (Colace) 100 mg PRN BID PRN PO CONSTIPATION; Start 04/26/19 at 18:00 Albuterol Sulfate (Ventolin Neb Soln) 2.5 mg PRN Q4HRS PRN NEB SHORTNESS OF BREATH; Start 04/26/19 at 18:00 Lorazepam (Ativan) 0.5 mg PRN Q4HRS PRN PO ANXIETY / AGITATION; Start 04/26/19 at 18:00 Heparin Sodium (Porcine) (Heparin Sodium) 5,000 unit Q8HRS SQ Last administered on 04/27/19at 06:41; Start 04/26/19 at 22:00 Active Scripts Active No Active Prescriptions or Reported Medications Vitals/I & O Vital Sign - Last 24 Hours 04/26/19 04/26/19 04/26/19 04/26/19 13:30 14:00 14:30 15:00 Temp 98.4 98.4 Pulse 99 87 87 89 Resp 18 18 18 15 B/P (MAP) 147/85 (105) 123/73 (90) 99/62 (74) 115/62 (79) Pulse Ox 98 98 98 99 O2 Delivery Room Air Room Air Room Air Room Air 04/26/19 04/26/19 04/26/19 04/26/19 15:30 16:00 16:30 17:41 Pulse 87 88 95 Resp 16 16 14 B/P (MAP) 107/69 (82) 102/69 (80) 99/67 (78) Pulse Ox 96 96 97 O2 Delivery Room Air Room Air Room Air Room Air 04/26/19 04/26/19 04/26/19 04/27/19 19:00 20:00 23:00 03:32 Temp 98.2 97.9 97.6 98.2 97.9 97.6 Pulse 92 88 92 Resp 18 16 16 B/P (MAP) 118/69 (85) 122/78 (93) 104/66 (79) Pulse Ox 96 97 98 O2 Delivery Room Air Room Air Room Air Room Air Intake and Output 04/26/19 04/26/19 04/27/19 15:00 23:00 07:00 Intake Total 0 ml Balance 0 ml VON HORTON MD Apr 27, 2019 08:50
[2019-04-27 11:00] VITALS: BP 119/79
--- NOTE | 2019-04-27 12:03 | PDOC2 ---
CONSULT Date of Consult Date of Consult DATE: 04/27/19 TIME: 12:03 Reason for Consult Reason for Consult: ?ESRD Source Source: Chart review, Patient History of Present Illness Reason for Visit: Mr Ramírez is a 53yo M w/ PMHx DM2, HTN, new ESRD, anemia who presents after his dialysis catheter fell out. Found with glucose of 635 . He notes the sutures had come undone earlier this week and was told not to worry about it. He says he thinks the catheter broke in half. Denies any sob, No N/V. No CP, Reports Good UOP Past Medical History Cardiovascular: HTN, Hyperlipidemia Endocrine: Diabetes Past Surgical History Past Surgical History: No pertinent history Family History Family History: Diabetes, Hypertension Social History No ALCOHOL: none Drugs: None Lives: with Family Domestic Violence: Neg Current Problem List Problem List Problems Medical Problems: (1) Complication, dialysis catheter clot or failure Status: Acute (2) Hyperglycemia Status: Acute Current Medications Current Medications Current Medications Insulin Human Regular (HumuLIN R VIAL) 5 unit 1X ONCE IV Last administered on 04/26/19at 16:14; Start 04/26/19 at 15:45; Stop 04/26/19 at 15:46; Status DC Sodium Chloride 1,000 ml @ 30 mls/hr Q24H IV ; Start 04/26/19 at 18:00; Stop 04/26/19 at 18:03; Status DC Insulin Human Lispro (HumaLOG) 0-5 UNITS TIDWMEALS SQ Last administered on 04/27/19at 08:34; Start 04/26/19 at 18:00 Dextrose (Dextrose 50%-Water Syringe) 12.5 gm PRN Q15MIN PRN IV SEE COMMENTS; Start 04/26/19 at 18:00 Sodium Chloride (Normal Saline Flush) 3 ml QSHIFT PRN IV AFTER MEDS AND BLOOD DRAWS; Start 04/26/19 at 18:00 Ondansetron HCl (Zofran) 4 mg PRN Q4HRS PRN IV NAUSEA/VOMITING; Start 04/26/19 at 18:00 Acetaminophen (Tylenol) 650 mg PRN Q4HRS PRN PO TEMP OVER 100.4F OR MILD PAIN; Start 04/26/19 at 18:00 Docusate Sodium (Colace) 100 mg PRN BID PRN PO CONSTIPATION; Start 04/26/19 at 18:00 Albuterol Sulfate (Ventolin Neb Soln) 2.5 mg PRN Q4HRS PRN NEB SHORTNESS OF BREATH; Start 04/26/19 at 18:00 Lorazepam (Ativan) 0.5 mg PRN Q4HRS PRN PO ANXIETY / AGITATION; Start 04/26/19 at 18:00 Heparin Sodium (Porcine) (Heparin Sodium) 5,000 unit Q8HRS SQ Last administered on 04/27/19at 06:41; Start 04/26/19 at 22:00 Insulin Glargine (Lantus Syringe) 10 unit QHS SQ ; Start 04/27/19 at 21:00 Active Scripts Active No Active Prescriptions or Reported Medications Allergies Allergies: Coded Allergies: No Known Drug Allergies (Unverified , 02/11/19) ROS Review of System Per HPI, rest negative Physical Exam Physical Exam GENERAL: NAD HEENT: OM moist NECK: Supple. LUNGS: CTA, nonlabored. HEART: S1 and S2. ABDOMEN: Nondistended, soft, EXTREMITIES: No gross edema SKIN: No rash. NEUROLOGIC: Alert and oriented x 3 No [place] Vital Signs Vital Signs Date Time Temp Pulse Resp B/P (MAP) Pulse Ox O2 Delivery O2 Flow Rate FiO2 04/27/19 11:00 98.6 97 16 119/79 (92) 92 Room Air 98.6 Assessment & Plan ESRD - Dx at last admission , currently on MWF HD ? Possibility of recovering SARAH/ATN - BUN/Cr cw CKD stage 3, Monitor labs in am and UOP If no recovery - will need to place new Tunneled HDC Hx of SARAH - At last admission (Feb 2019) presented with BUN/Cr 200/20 Was initiated on HD with No improvement in renal function Anemia- No indication of BRAD HTN - stable DM II- per primary DW RN to call me with labs in am before placing HDC Labs Labs Laboratory Tests Test 04/26/19 14:00 04/26/19 17:20 04/26/19 20:14 04/27/19 06:04 White Blood Count 5.3 x10^3/uL (4.0-11.0) 6.8 x10^3/uL (4.0-11.0) Red Blood Count 4.09 x10^6/uL (4.30-5.70) 3.94 x10^6/uL (4.30-5.70) Hemoglobin 13.0 g/dL (13.0-17.5) 12.3 g/dL (13.0-17.5) Hematocrit 38.8 % (39.0-53.0) 37.4 % (39.0-53.0) Mean Corpuscular Volume 95 fL (79-100) 95 fL (79-100) Mean Corpuscular Hemoglobin 32 pg (25-35) 31 pg (25-35) Mean Corpuscular Hemoglobin Concent 34 g/dL (31-37) 33 g/dL (31-37) Red Cell Distribution Width 13.8 % (11.5-14.5) 13.6 % (11.5-14.5) Platelet Count 279 x10^3/uL (140-400) 283 x10^3/uL (140-400) Neutrophils (%) (Auto) 60 % (31-73) 52 % (31-73) Lymphocytes (%) (Auto) 17 % (24-48) 27 % (24-48) Monocytes (%) (Auto) 9 % (0-9) 9 % (0-9) Eosinophils (%) (Auto) 10 % (0-3) 9 % (0-3) Basophils (%) (Auto) 4 % (0-3) 3 % (0-3) Neutrophils # (Auto) 3.2 x10^3/uL (1.8-7.7) 3.5 x10^3/uL (1.8-7.7) Lymphocytes # (Auto) 0.9 x10^3/uL (1.0-4.8) 1.8 x10^3/uL (1.0-4.8) Monocytes # (Auto) 0.5 x10^3/uL (0.0-1.1) 0.6 x10^3/uL (0.0-1.1) Eosinophils # (Auto) 0.5 x10^3/uL (0.0-0.7) 0.6 x10^3/uL (0.0-0.7) Basophils # (Auto) 0.2 x10^3/uL (0.0-0.2) 0.2 x10^3/uL (0.0-0.2) Segmented Neutrophils % 63 % (35-66) Lymphocytes % 19 % (24-48) Monocytes % 8 % (0-10) Eosinophils % 9 % (0-5) Basophils % 1 % (0-3) Platelet Estimate Adequate (ADEQUATE) Prothrombin Time 12.3 SEC (11.7-14.0) Prothromb Time International Ratio 0.9 (0.8-1.1) Sodium Level 130 mmol/L (136-145) 139 mmol/L (136-145) Potassium Level 4.8 mmol/L (3.5-5.1) 4.0 mmol/L (3.5-5.1) Chloride Level 95 mmol/L (98-107) 102 mmol/L (98-107) Carbon Dioxide Level 29 mmol/L (21-32) 28 mmol/L (21-32) Anion Gap 6 (6-14) 9 (6-14) Blood Urea Nitrogen 22 mg/dL (8-26) 25 mg/dL (8-26) Creatinine 2.2 mg/dL (0.7-1.3) 1.9 mg/dL (0.7-1.3) Estimated GFR (Cockcroft-Gault) 31.7 37.6 BUN/Creatinine Ratio 10 (6-20) Glucose Level 635 mg/dL (70-99) 286 mg/dL (70-99) Calcium Level 8.9 mg/dL (8.5-10.1) 8.9 mg/dL (8.5-10.1) Total Bilirubin 0.2 mg/dL (0.2-1.0) Aspartate Amino Transf (AST/SGOT) 12 U/L (15-37) Alanine Aminotransferase (ALT/SGPT) 27 U/L (16-63) Alkaline Phosphatase 209 U/L (46-116) Troponin I Quantitative < 0.017 ng/mL (0.000-0.055) MQ-Ufn-D-Type Natriuretic Peptide 126 pg/mL (0-124) Total Protein 7.5 g/dL (6.4-8.2) Albumin 3.7 g/dL (3.4-5.0) 3.3 g/dL (3.4-5.0) Albumin/Globulin Ratio 1.0 (1.0-1.7) Glucose (Fingerstick) 259 mg/dL (70-99) 176 mg/dL (70-99) Phosphorus Level 4.5 mg/dL (2.6-4.7) Test 04/27/19 07:48 04/27/19 11:29 Glucose (Fingerstick) 279 mg/dL (70-99) 248 mg/dL (70-99) Laboratory Tests Test 04/26/19 14:00 04/26/19 17:20 04/26/19 20:14 04/27/19 06:04 White Blood Count 5.3 x10^3/uL (4.0-11.0) 6.8 x10^3/uL (4.0-11.0) Red Blood Count 4.09 x10^6/uL (4.30-5.70) 3.94 x10^6/uL (4.30-5.70) Hemoglobin 13.0 g/dL (13.0-17.5) 12.3 g/dL (13.0-17.5) Hematocrit 38.8 % (39.0-53.0) 37.4 % (39.0-53.0) Mean Corpuscular Volume 95 fL (79-100) 95 fL (79-100) Mean Corpuscular Hemoglobin 32 pg (25-35) 31 pg (25-35) Mean Corpuscular Hemoglobin Concent 34 g/dL (31-37) 33 g/dL (31-37) Red Cell Distribution Width 13.8 % (11.5-14.5) 13.6 % (11.5-14.5) Platelet Count 279 x10^3/uL (140-400) 283 x10^3/uL (140-400) Neutrophils (%) (Auto) 60 % (31-73) 52 % (31-73) Lymphocytes (%) (Auto) 17 % (24-48) 27 % (24-48) Monocytes (%) (Auto) 9 % (0-9) 9 % (0-9) Eosinophils (%) (Auto) 10 % (0-3) 9 % (0-3) Basophils (%) (Auto) 4 % (0-3) 3 % (0-3) Neutrophils # (Auto) 3.2 x10^3/uL (1.8-7.7) 3.5 x10^3/uL (1.8-7.7) Lymphocytes # (Auto) 0.9 x10^3/uL (1.0-4.8) 1.8 x10^3/uL (1.0-4.8) Monocytes # (Auto) 0.5 x10^3/uL (0.0-1.1) 0.6 x10^3/uL (0.0-1.1) Eosinophils # (Auto) 0.5 x10^3/uL (0.0-0.7) 0.6 x10^3/uL (0.0-0.7) Basophils # (Auto) 0.2 x10^3/uL (0.0-0.2) 0.2 x10^3/uL (0.0-0.2) Segmented Neutrophils % 63 % (35-66) Lymphocytes % 19 % (24-48) Monocytes % 8 % (0-10) Eosinophils % 9 % (0-5) Basophils % 1 % (0-3) Platelet Estimate Adequate (ADEQUATE) Prothrombin Time 12.3 SEC (11.7-14.0) Prothromb Time International Ratio 0.9 (0.8-1.1) Sodium Level 130 mmol/L (136-145) 139 mmol/L (136-145) Potassium Level 4.8 mmol/L (3.5-5.1) 4.0 mmol/L (3.5-5.1) Chloride Level 95 mmol/L (98-107) 102 mmol/L (98-107) Carbon Dioxide Level 29 mmol/L (21-32) 28 mmol/L (21-32) Anion Gap 6 (6-14) 9 (6-14) Blood Urea Nitrogen 22 mg/dL (8-26) 25 mg/dL (8-26) Creatinine 2.2 mg/dL (0.7-1.3) 1.9 mg/dL (0.7-1.3) Estimated GFR (Cockcroft-Gault) 31.7 37.6 BUN/Creatinine Ratio 10 (6-20) Glucose Level 635 mg/dL (70-99) 286 mg/dL (70-99) Calcium Level 8.9 mg/dL (8.5-10.1) 8.9 mg/dL (8.5-10.1) Total Bilirubin 0.2 mg/dL (0.2-1.0) Aspartate Amino Transf (AST/SGOT) 12 U/L (15-37) Alanine Aminotransferase (ALT/SGPT) 27 U/L (16-63) Alkaline Phosphatase 209 U/L (46-116) Troponin I Quantitative < 0.017 ng/mL (0.000-0.055) MC-Mmg-D-Type Natriuretic Peptide 126 pg/mL (0-124) Total Protein 7.5 g/dL (6.4-8.2) Albumin 3.7 g/dL (3.4-5.0) 3.3 g/dL (3.4-5.0) Albumin/Globulin Ratio 1.0 (1.0-1.7) Glucose (Fingerstick) 259 mg/dL (70-99) 176 mg/dL (70-99) Phosphorus Level 4.5 mg/dL (2.6-4.7) Test 04/27/19 07:48 04/27/19 11:29 Glucose (Fingerstick) 279 mg/dL (70-99) 248 mg/dL (70-99) Review All relevant outside records, renal labs, imaging studies, telemetry/EKG's were reviewed. ROHIT KNOWLES MD Apr 27, 2019 12:03
[2019-04-27 14:48] VITALS: BP 114/69
[2019-04-27 19:45] VITALS: BP 116/73
[2019-04-27] MEDS ORDERED: INSULIN GLARGINE SYRINGE. SQ SCH (21:00)
[2019-04-27 22:55] VITALS: BP 112/70
[2019-04-28] MEDS: HEPARIN for SUB-Q USE 5,000 UNIT/ML VIAL. SQ SCH ×3 (06:07→21:16)
[2019-04-28 07:00] VITALS: BP 110/74
[2019-04-28] MEDS ORDERED: DEXTROSE 50% 25 GM / 50ML DISP.SYRIN. IV PRN (08:15)
--- NOTE | 2019-04-28 08:15 | EKG ---
[facility] [address] [place] [address] Test Date: 2019-04-26 Test Time: 13:55:36 Pat Name: BK BUTT Department: Room: Gender: M Tech Intern: : 1965 Requested By: DWIGHT FORD Order Number: [id number] Reading MD: Measurements Intervals [place] Rate: 87 P: 51 FL: 150 QRS: 28 QRSD: 74 T: 42 QT: 340 QTc: 410 Interpretive Statements SINUS RHYTHM NORMAL ECG RI6.01 No previous ECG available for comparison
[2019-04-28 09:05] LABS: CALCIUM 9.1 mg/dL (8.5-10.1); CREATININE 1.8 mg/dL (0.7-1.3); POTASSIUM 3.6 mmol/L (3.5-5.1)
--- NOTE | 2019-04-28 09:37 | NUR ---
Received BMP results, notified Dr. Argueta, new order to cancel IR consult for new dialysis catheter, and to start 24 hour urine for creatine clearance.
--- NOTE | 2019-04-28 09:53 | PDOC ---
PROGRESS NOTES Chief Complaint Chief Complaint HTN,stable - not on any meds DM 2 - on unrecalled 1 pill, uncontrolled, unknown hgba1c SARAH, ESRD prev on HD Good UO HD cath, malfunction(fell off) History of Present Illness History of Present Illness NO sxs HD cath fell off intact MAkes good UO REnal has ordered to hold off re insertion HD cath by IGNACIO pollock do 24 hr urine BP ok, but BS high! HE tells me an unrecalled 1 pill for DM that he takes PLAn: Inc lantus to 15 qhs from 10 (started by colleague) Start glyburide BID NO metformin Check hgba1c 24 hr urine Avoid nephrotoxins, NO PT needs Dw RN Lynn Vitals Vitals Vital Signs Date Time Temp Pulse Resp B/P (MAP) Pulse Ox O2 Delivery O2 Flow Rate FiO2 04/28/19 07:57 Room Air 04/28/19 07:00 97.7 89 18 110/74 (86) 100 97.7 Physical Exam General: Alert, Oriented X3, Cooperative, No acute distress Heart: Regular rate, Normal S1, Normal S2, No murmurs Lungs: Clear Abdomen: Normal bowel sounds, Soft, No tenderness Extremities: No clubbing, No cyanosis, No edema Skin: No rashes, No breakdown, No significant lesion Labs LABS Laboratory Tests Test 04/27/19 11:29 04/27/19 16:11 04/27/19 20:46 04/28/19 08:18 Glucose (Fingerstick) 248 mg/dL (70-99) 240 mg/dL (70-99) 251 mg/dL (70-99) Sodium Level 140 mmol/L (136-145) Potassium Level 3.6 mmol/L (3.5-5.1) Chloride Level 102 mmol/L (98-107) Carbon Dioxide Level 28 mmol/L (21-32) Anion Gap 10 (6-14) Blood Urea Nitrogen 27 mg/dL (8-26) Creatinine 1.8 mg/dL (0.7-1.3) Estimated GFR (Cockcroft-Gault) 40.0 Glucose Level 214 mg/dL (70-99) Calcium Level 9.1 mg/dL (8.5-10.1) Review of Systems Review of Systems neg 14 pt reviewed with him Assessment and Plan Assessmemt and Plan Problems Medical Problems: (1) Complication, dialysis catheter clot or failure Status: Acute (2) Hyperglycemia Status: Acute Comment Review of Relevant I have reviewed the following items mindy (where applicable) has been applied. Labs Laboratory Tests Test 04/26/19 14:00 04/26/19 17:20 04/26/19 20:14 04/27/19 06:04 White Blood Count 5.3 x10^3/uL (4.0-11.0) 6.8 x10^3/uL (4.0-11.0) Red Blood Count 4.09 x10^6/uL (4.30-5.70) 3.94 x10^6/uL (4.30-5.70) Hemoglobin 13.0 g/dL (13.0-17.5) 12.3 g/dL (13.0-17.5) Hematocrit 38.8 % (39.0-53.0) 37.4 % (39.0-53.0) Mean Corpuscular Volume 95 fL (79-100) 95 fL (79-100) Mean Corpuscular Hemoglobin 32 pg (25-35) 31 pg (25-35) Mean Corpuscular Hemoglobin Concent 34 g/dL (31-37) 33 g/dL (31-37) Red Cell Distribution Width 13.8 % (11.5-14.5) 13.6 % (11.5-14.5) Platelet Count 279 x10^3/uL (140-400) 283 x10^3/uL (140-400) Neutrophils (%) (Auto) 60 % (31-73) 52 % (31-73) Lymphocytes (%) (Auto) 17 % (24-48) 27 % (24-48) Monocytes (%) (Auto) 9 % (0-9) 9 % (0-9) Eosinophils (%) (Auto) 10 % (0-3) 9 % (0-3) Basophils (%) (Auto) 4 % (0-3) 3 % (0-3) Neutrophils # (Auto) 3.2 x10^3/uL (1.8-7.7) 3.5 x10^3/uL (1.8-7.7) Lymphocytes # (Auto) 0.9 x10^3/uL (1.0-4.8) 1.8 x10^3/uL (1.0-4.8) Monocytes # (Auto) 0.5 x10^3/uL (0.0-1.1) 0.6 x10^3/uL (0.0-1.1) Eosinophils # (Auto) 0.5 x10^3/uL (0.0-0.7) 0.6 x10^3/uL (0.0-0.7) Basophils # (Auto) 0.2 x10^3/uL (0.0-0.2) 0.2 x10^3/uL (0.0-0.2) Segmented Neutrophils % 63 % (35-66) Lymphocytes % 19 % (24-48) Monocytes % 8 % (0-10) Eosinophils % 9 % (0-5) Basophils % 1 % (0-3) Platelet Estimate Adequate (ADEQUATE) Prothrombin Time 12.3 SEC (11.7-14.0) Prothromb Time International Ratio 0.9 (0.8-1.1) Sodium Level 130 mmol/L (136-145) 139 mmol/L (136-145) Potassium Level 4.8 mmol/L (3.5-5.1) 4.0 mmol/L (3.5-5.1) Chloride Level 95 mmol/L (98-107) 102 mmol/L (98-107) Carbon Dioxide Level 29 mmol/L (21-32) 28 mmol/L (21-32) Anion Gap 6 (6-14) 9 (6-14) Blood Urea Nitrogen 22 mg/dL (8-26) 25 mg/dL (8-26) Creatinine 2.2 mg/dL (0.7-1.3) 1.9 mg/dL (0.7-1.3) Estimated GFR (Cockcroft-Gault) 31.7 37.6 BUN/Creatinine Ratio 10 (6-20) Glucose Level 635 mg/dL (70-99) 286 mg/dL (70-99) Calcium Level 8.9 mg/dL (8.5-10.1) 8.9 mg/dL (8.5-10.1) Total Bilirubin 0.2 mg/dL (0.2-1.0) Aspartate Amino Transf (AST/SGOT) 12 U/L (15-37) Alanine Aminotransferase (ALT/SGPT) 27 U/L (16-63) Alkaline Phosphatase 209 U/L (46-116) Troponin I Quantitative < 0.017 ng/mL (0.000-0.055) RN-Lsj-D-Type Natriuretic Peptide 126 pg/mL (0-124) Total Protein 7.5 g/dL (6.4-8.2) Albumin 3.7 g/dL (3.4-5.0) 3.3 g/dL (3.4-5.0) Albumin/Globulin Ratio 1.0 (1.0-1.7) Glucose (Fingerstick) 259 mg/dL (70-99) 176 mg/dL (70-99) Phosphorus Level 4.5 mg/dL (2.6-4.7) Test 04/27/19 07:48 04/27/19 11:29 04/27/19 16:11 04/27/19 20:46 Glucose (Fingerstick) 279 mg/dL (70-99) 248 mg/dL (70-99) 240 mg/dL (70-99) 251 mg/dL (70-99) Test 04/28/19 08:18 Sodium Level 140 mmol/L (136-145) Potassium Level 3.6 mmol/L (3.5-5.1) Chloride Level 102 mmol/L (98-107) Carbon Dioxide Level 28 mmol/L (21-32) Anion Gap 10 (6-14) Blood Urea Nitrogen 27 mg/dL (8-26) Creatinine 1.8 mg/dL (0.7-1.3) Estimated GFR (Cockcroft-Gault) 40.0 Glucose Level 214 mg/dL (70-99) Calcium Level 9.1 mg/dL (8.5-10.1) Laboratory Tests Test 04/27/19 11:29 04/27/19 16:11 04/27/19 20:46 04/28/19 08:18 Glucose (Fingerstick) 248 mg/dL (70-99) 240 mg/dL (70-99) 251 mg/dL (70-99) Sodium Level 140 mmol/L (136-145) Potassium Level 3.6 mmol/L (3.5-5.1) Chloride Level 102 mmol/L (98-107) Carbon Dioxide Level 28 mmol/L (21-32) Anion Gap 10 (6-14) Blood Urea Nitrogen 27 mg/dL (8-26) Creatinine 1.8 mg/dL (0.7-1.3) Estimated GFR (Cockcroft-Gault) 40.0 Glucose Level 214 mg/dL (70-99) Calcium Level 9.1 mg/dL (8.5-10.1) Medications Current Medications Insulin Human Regular (HumuLIN R VIAL) 5 unit 1X ONCE IV Last administered on 04/26/19at 16:14; Start 04/26/19 at 15:45; Stop 04/26/19 at 15:46; Status DC Sodium Chloride 1,000 ml @ 30 mls/hr Q24H IV ; Start 04/26/19 at 18:00; Stop 04/26/19 at 18:03; Status DC Insulin Human Lispro (HumaLOG) 0-5 UNITS TIDWMEALS SQ Last administered on 04/27/19at 17:43; Start 04/26/19 at 18:00; Stop 04/28/19 at 08:12; Status DC Dextrose (Dextrose 50%-Water Syringe) 12.5 gm PRN Q15MIN PRN IV SEE COMMENTS; Start 04/26/19 at 18:00; Stop 04/28/19 at 08:17; Status DC Sodium Chloride (Normal Saline Flush) 3 ml QSHIFT PRN IV AFTER MEDS AND BLOOD DRAWS; Start 04/26/19 at 18:00 Ondansetron HCl (Zofran) 4 mg PRN Q4HRS PRN IV NAUSEA/VOMITING; Start 04/26/19 at 18:00 Acetaminophen (Tylenol) 650 mg PRN Q4HRS PRN PO TEMP OVER 100.4F OR MILD PAIN; Start 04/26/19 at 18:00 Docusate Sodium (Colace) 100 mg PRN BID PRN PO CONSTIPATION; Start 04/26/19 at 18:00 Albuterol Sulfate (Ventolin Neb Soln) 2.5 mg PRN Q4HRS PRN NEB SHORTNESS OF BREATH; Start 04/26/19 at 18:00 Lorazepam (Ativan) 0.5 mg PRN Q4HRS PRN PO ANXIETY / AGITATION; Start 04/26/19 at 18:00 Heparin Sodium (Porcine) (Heparin Sodium) 5,000 unit Q8HRS SQ Last administered on 04/28/19at 06:07; Start 04/26/19 at 22:00 Insulin Glargine (Lantus Syringe) 10 unit QHS SQ Last administered on 04/27/19at 20:59; Start 04/27/19 at 21:00 Insulin Human Lispro (HumaLOG) 0-9 UNITS TIDWMEALS SQ ; Start 04/28/19 at 12:00 Dextrose (Dextrose 50%-Water Syringe) 12.5 gm PRN Q15MIN PRN IV SEE COMMENTS; Start 04/28/19 at 08:15 Insulin Human Lispro (HumaLOG) 10 units TIDWMEALS SQ ; Start 04/28/19 at 12:00 Active Scripts Active No Active Prescriptions or Reported Medications Vitals/I & O Vital Sign - Last 24 Hours 04/27/19 04/27/19 04/27/19 04/27/19 11:00 14:48 19:45 20:00 Temp 98.6 97.7 98.6 98.6 97.7 98.6 Pulse 97 101 91 Resp 16 16 20 B/P (MAP) 119/79 (92) 114/69 (84) 116/73 (87) Pulse Ox 92 97 96 O2 Delivery Room Air Room Air Room Air Room Air 04/27/19 04/28/19 04/28/19 22:55 07:00 07:57 Temp 97.8 97.7 97.8 97.7 Pulse 97 89 Resp 18 18 B/P (MAP) 112/70 (84) 110/74 (86) Pulse Ox 98 100 O2 Delivery Room Air Room Air Room Air Intake and Output 04/27/19 04/27/19 04/28/19 15:00 23:00 07:00 Intake Total 240 ml 250 ml 300 ml Balance 240 ml 250 ml 300 ml ROSI THOMPSON MD Apr 28, 2019 09:53
[2019-04-28] MEDS: glyBURIDE 5 MG TABLET PO SCH ×2 (10:26→16:44)
--- NOTE | 2019-04-28 11:06 | PDOC ---
SUBJECTIVE ROS No complaints, No n/v. No SOB, good appetite OBJECTIVE Vital Signs Vital Signs Date Time Temp Pulse Resp B/P (MAP) Pulse Ox O2 Delivery O2 Flow Rate FiO2 04/28/19 07:57 Room Air 04/28/19 07:00 97.7 89 18 110/74 (86) 100 97.7 I & 0 Intake and Output 04/28/19 07:00 Intake Total 790 ml Balance 790 ml Intake Oral 790 ml PHYSICAL EXAM Physical Exam GENERAL: NAD HEENT: OM moist NECK: Supple. LUNGS: CTA, nonlabored. HEART: S1 and S2. ABDOMEN: Nondistended, soft, EXTREMITIES: No gross edema SKIN: No rash. NEUROLOGIC: Alert and oriented x 3 No [place] DIAGNOSIS/ASSESSMENT Assessment & Plan Possibly recovering SARAH/ATN Has been on hd mwf since last admission in Feb Last HD on Sunday , renal function stable with eGFR cw stage 3 , Clinically euvolemic , E-Lytes satble Hold off replacing HDC- may not need Dialysis , get 24 Ur collection for Cr cl Avoid Nephrotoxins Hx of SARAH - At last admission (Feb 2019) presented with BUN/Cr 200/20 Was initiated on HD with No improvement in renal function Anemia- No indication of BRAD HTN - stable DM II- per primary DW RN and pt at bedside COMMENT/RELEVANT DATA Meds Current Medications Medications (Trade) Dose Ordered Sig/Ismael Start Time Stop Time Status Last Admin Dose Admin Acetaminophen (Tylenol) 650 mg PRN Q4HRS PRN 04/26/19 18:00 Albuterol Sulfate (Ventolin Neb Soln) 2.5 mg PRN Q4HRS PRN 04/26/19 18:00 Dextrose (Dextrose 50%-Water Syringe) 12.5 gm PRN Q15MIN PRN 04/28/19 08:15 Docusate Sodium (Colace) 100 mg PRN BID PRN 04/26/19 18:00 Glyburide (Diabeta) 5 mg BIDWMEALS 04/28/19 10:15 04/28/19 10:26 5 MG Heparin Sodium (Porcine) (Heparin Sodium) 5,000 unit Q8HRS 04/26/19 22:00 04/28/19 06:07 5,000 UNIT Insulin Glargine (Lantus Syringe) 15 unit QHS 04/28/19 21:00 Insulin Human Lispro (HumaLOG) 10 units TIDWMEALS 04/28/19 12:00 04/28/19 09:51 DC Insulin Human Regular (HumuLIN R VIAL) 5 unit 1X ONCE 04/26/19 15:45 04/26/19 15:46 DC 04/26/19 16:14 5 UNIT Lorazepam (Ativan) 0.5 mg PRN Q4HRS PRN 04/26/19 18:00 Ondansetron HCl (Zofran) 4 mg PRN Q4HRS PRN 04/26/19 18:00 Sodium Chloride (Normal Saline Flush) 3 ml QSHIFT PRN 04/26/19 18:00 Lab Laboratory Tests Test 04/27/19 11:29 04/27/19 16:11 04/27/19 20:46 04/28/19 08:02 Glucose (Fingerstick) 248 mg/dL (70-99) 240 mg/dL (70-99) 251 mg/dL (70-99) 210 mg/dL (70-99) Test 04/28/19 08:18 04/28/19 10:50 Sodium Level 140 mmol/L (136-145) Potassium Level 3.6 mmol/L (3.5-5.1) Chloride Level 102 mmol/L (98-107) Carbon Dioxide Level 28 mmol/L (21-32) Anion Gap 10 (6-14) Blood Urea Nitrogen 27 mg/dL (8-26) Creatinine 1.8 mg/dL (0.7-1.3) Estimated GFR (Cockcroft-Gault) 40.0 Glucose Level 214 mg/dL (70-99) Calcium Level 9.1 mg/dL (8.5-10.1) Glucose (Fingerstick) 245 mg/dL (70-99) Results All relevant outside records, renal labs, imaging studies, telemetry/EKG's were reviewed. ROHIT KNOWLES MD Apr 28, 2019 11:06
[2019-04-28 11:09] VITALS: BP 126/76
--- NOTE | 2019-04-28 11:16 | NUR ---
SS following for discharge planning. SS reviewed pt chart. Pt is self pay pt. [facility] following for self pay status. Pt is from home and is currently on room air. Pt has [facility] chair time at [facility], ; fax [phone], Sunday, Sunday, and Sunday. SS will continue to follow for discharge planning.
[2019-04-28] MEDS: INSULIN LISPRO 300 UNITS/3 ML VIAL. SQ SCH ×2 (11:39→16:44)
[2019-04-28] MEDS ORDERED: INSULIN LISPRO 300 UNITS/3 ML VIAL. SQ SCH (12:00)
[2019-04-28 14:43] VITALS: BP 123/83
[2019-04-28 19:00] VITALS: BP 124/73
[2019-04-28] MEDS ORDERED: INSULIN GLARGINE SYRINGE. SQ SCH (21:00)
[2019-04-28 23:04] VITALS: BP 117/74
--- NOTE | 2019-04-29 00:45 | NUR ---
Report rcvd. from SHANTE Rodriguez and assumed care of patient at this time.
[2019-04-29 03:00] VITALS: BP 109/66
[2019-04-29] MEDS: HEPARIN for SUB-Q USE 5,000 UNIT/ML VIAL. SQ SCH ×2 (05:38→14:00)
[2019-04-29 05:41] LABS: CREATININE 1.9 mg/dL (0.7-1.3); GFR 37.6; POTASSIUM 3.8 mmol/L (3.5-5.1)
[2019-04-29 07:00] VITALS: BP 118/77
[2019-04-29] MEDS: glyBURIDE 5 MG TABLET PO SCH (09:28)
[2019-04-29] MEDS: INSULIN LISPRO 300 UNITS/3 ML VIAL. SQ SCH ×2 (09:36→12:15)
--- NOTE | 2019-04-29 09:37 | PDOC ---
SUBJECTIVE ROS No complaints, No n/v. No SOB, good appetite OBJECTIVE Vital Signs Vital Signs Date Time Temp Pulse Resp B/P (MAP) Pulse Ox O2 Delivery O2 Flow Rate FiO2 04/29/19 07:00 97.7 86 16 118/77 (91) 96 Room Air 97.7 I & 0 Intake and Output 04/29/19 07:00 Intake Total 480 ml Output Total 700 ml Balance -220 ml Intake Oral 480 ml Output Urine Total 700 ml PHYSICAL EXAM Physical Exam GENERAL: NAD HEENT: OM moist NECK: Supple. LUNGS: CTA, nonlabored. HEART: S1 and S2. ABDOMEN: Nondistended, soft, EXTREMITIES: No gross edema SKIN: No rash. NEUROLOGIC: Alert and oriented x 3 No [place] DIAGNOSIS/ASSESSMENT Assessment & Plan Possibly recovering SARAH/ATN Has been on hd mwf since last admission in Feb 2019 Last HD on Sunday , renal function stable with eGFR cw stage 3 , Clinically euvolemic , E-Lytes satble 24 Ur collection for Cr cl pending, No indication for HD Avoid Nephrotoxins Hx of SARAH - At last admission (Feb 2019) presented with BUN/Cr 200/20 Was initiated on HD with No improvement in renal function Anemia- No indication of BRAD HTN - stable DM II- per primary DW RN and pt at bedside COMMENT/RELEVANT DATA Meds Current Medications Medications (Trade) Dose Ordered Sig/Ismael Start Time Stop Time Status Last Admin Dose Admin Acetaminophen (Tylenol) 650 mg PRN Q4HRS PRN 04/26/19 18:00 Albuterol Sulfate (Ventolin Neb Soln) 2.5 mg PRN Q4HRS PRN 04/26/19 18:00 Dextrose (Dextrose 50%-Water Syringe) 12.5 gm PRN Q15MIN PRN 04/28/19 08:15 Docusate Sodium (Colace) 100 mg PRN BID PRN 04/26/19 18:00 Glyburide (Diabeta) 5 mg BIDWMEALS 04/28/19 10:15 04/28/19 16:44 5 MG Heparin Sodium (Porcine) (Heparin Sodium) 5,000 unit Q8HRS 04/26/19 22:00 04/29/19 05:38 5,000 UNIT Insulin Glargine (Lantus Syringe) 15 unit QHS 04/28/19 21:00 04/28/19 21:16 15 UNIT Insulin Human Lispro (HumaLOG) 10 units TIDWMEALS 04/28/19 12:00 04/28/19 09:51 DC Insulin Human Regular (HumuLIN R VIAL) 5 unit 1X ONCE 04/26/19 15:45 04/26/19 15:46 DC 04/26/19 16:14 5 UNIT Lorazepam (Ativan) 0.5 mg PRN Q4HRS PRN 04/26/19 18:00 Ondansetron HCl (Zofran) 4 mg PRN Q4HRS PRN 04/26/19 18:00 Sodium Chloride (Normal Saline Flush) 3 ml QSHIFT PRN 04/26/19 18:00 Lab Laboratory Tests Test 04/28/19 10:50 04/28/19 16:43 04/28/19 20:35 04/29/19 04:20 Glucose (Fingerstick) 245 mg/dL (70-99) 136 mg/dL (70-99) 314 mg/dL (70-99) Sodium Level 141 mmol/L (136-145) Potassium Level 3.8 mmol/L (3.5-5.1) Chloride Level 104 mmol/L (98-107) Carbon Dioxide Level 29 mmol/L (21-32) Anion Gap 8 (6-14) Blood Urea Nitrogen 27 mg/dL (8-26) Creatinine 1.9 mg/dL (0.7-1.3) Estimated GFR (Cockcroft-Gault) 37.6 Glucose Level 259 mg/dL (70-99) Calcium Level 9.0 mg/dL (8.5-10.1) Test 04/29/19 07:45 Glucose (Fingerstick) 195 mg/dL (70-99) Results All relevant outside records, renal labs, imaging studies, telemetry/EKG's were reviewed. ROHIT KNOWLES MD Apr 29, 2019 09:37
[2019-04-29 11:00] VITALS: BP 144/90
--- NOTE | 2019-04-29 11:11 | PDOC ---
SUBJECTIVE ROS No complaints, No n/v. No SOB, good appetite OBJECTIVE Vital Signs Vital Signs Date Time Temp Pulse Resp B/P (MAP) Pulse Ox O2 Delivery O2 Flow Rate FiO2 04/29/19 07:00 97.7 86 16 118/77 (91) 96 Room Air 97.7 I & 0 Intake and Output 04/29/19 06:59 Intake Total 480 ml Output Total 700 ml Balance -220 ml Intake Oral 480 ml Output Urine Total 700 ml PHYSICAL EXAM Physical Exam GENERAL: NAD HEENT: OM moist NECK: Supple. LUNGS: CTA, nonlabored. HEART: S1 and S2. ABDOMEN: Nondistended, soft, EXTREMITIES: No gross edema SKIN: No rash. NEUROLOGIC: Alert and oriented x 3 No [place] DIAGNOSIS/ASSESSMENT Assessment & Plan Possibly recovering SARAH/ATN Has been on hd mwf since last admission in Feb 2019 Last HD on Sunday , renal function stable with eGFR cw stage 3 , Clinically euvolemic , E-Lytes satble 24 Ur collection for Cr cl pending, No indication for HD Avoid Nephrotoxins Hx of SARAH - At last admission (Feb 2019) presented with BUN/Cr 200/20 Was initiated on HD with No improvement in renal function Anemia- No indication of BRAD HTN - stable DM II- per primary DW RN and pt at bedside Can be dced home from renal standpoint after he completes 24 Hr Ur Collection(will be send to lab for Cr Cl ) Follow up with our office as op COMMENT/RELEVANT DATA Meds Current Medications Medications (Trade) Dose Ordered Sig/Ismael Start Time Stop Time Status Last Admin Dose Admin Acetaminophen (Tylenol) 650 mg PRN Q4HRS PRN 04/26/19 18:00 Albuterol Sulfate (Ventolin Neb Soln) 2.5 mg PRN Q4HRS PRN 04/26/19 18:00 Dextrose (Dextrose 50%-Water Syringe) 12.5 gm PRN Q15MIN PRN 04/28/19 08:15 Docusate Sodium (Colace) 100 mg PRN BID PRN 04/26/19 18:00 Glyburide (Diabeta) 5 mg BIDWMEALS 04/28/19 10:15 04/29/19 09:28 5 MG Heparin Sodium (Porcine) (Heparin Sodium) 5,000 unit Q8HRS 04/26/19 22:00 04/29/19 05:38 5,000 UNIT Insulin Glargine (Lantus Syringe) 15 unit QHS 04/28/19 21:00 04/28/19 21:16 15 UNIT Insulin Human Lispro (HumaLOG) 10 units TIDWMEALS 04/28/19 12:00 04/28/19 09:51 DC Insulin Human Regular (HumuLIN R VIAL) 5 unit 1X ONCE 04/26/19 15:45 04/26/19 15:46 DC 04/26/19 16:14 5 UNIT Lorazepam (Ativan) 0.5 mg PRN Q4HRS PRN 04/26/19 18:00 Ondansetron HCl (Zofran) 4 mg PRN Q4HRS PRN 04/26/19 18:00 Sodium Chloride (Normal Saline Flush) 3 ml QSHIFT PRN 04/26/19 18:00 Lab Laboratory Tests Test 04/28/19 16:43 04/28/19 20:35 04/29/19 04:20 04/29/19 07:45 Glucose (Fingerstick) 136 mg/dL (70-99) 314 mg/dL (70-99) 195 mg/dL (70-99) Sodium Level 141 mmol/L (136-145) Potassium Level 3.8 mmol/L (3.5-5.1) Chloride Level 104 mmol/L (98-107) Carbon Dioxide Level 29 mmol/L (21-32) Anion Gap 8 (6-14) Blood Urea Nitrogen 27 mg/dL (8-26) Creatinine 1.9 mg/dL (0.7-1.3) Estimated GFR (Cockcroft-Gault) 37.6 Glucose Level 259 mg/dL (70-99) Calcium Level 9.0 mg/dL (8.5-10.1) Hepatitis B Surface Antigen Nonreactive (Nonreactive) Results All relevant outside records, renal labs, imaging studies, telemetry/EKG's were reviewed. ROHIT KNOWLES MD Apr 29, 2019 11:11
[2019-04-29] MEDS ORDERED: GLYB5TAB3 PO (12:02)
--- NOTE | 2019-04-29 13:33 | PDOC3 ---
Discharge Summary Visit Information Date of Admission: Apr 26, 2019 Date of Discharge: Apr 29, 2019 Final Diagnosis HTN,stable - not on any meds DM 2 - on unrecalled 1 pill, uncontrolled, unknown hgba1c SARAH, ESRD prev on HD Good UO HD cath, malfunction(fell off) History of Present Illness History of Present Illness NO sxs HD cath fell off intact MAkes good UO REnal has ordered to hold off re insertion HD cath by IGNACIO pollock do 24 hr urine BP ok, but BS high! HE tells me an unrecalled 1 pill for DM that he takes Problems Medical Problems: (1) Complication, dialysis catheter clot or failure Status: Acute (2) Hyperglycemia Status: Acute Brief Hospital Course Allergies Allergies Coded Allergies Type Severity Reaction Last Updated Verified No Known Drug Allergies 02/11/19 No Vital Signs Vital Signs Date Time Temp Pulse Resp B/P (MAP) Pulse Ox O2 Delivery O2 Flow Rate FiO2 04/29/19 11:15 97 Room Air 04/29/19 11:00 98.2 97 16 144/90 (108) 98.2 Lab Results Laboratory Tests Test 04/27/19 16:11 04/27/19 20:46 04/28/19 08:02 04/28/19 08:18 Glucose (Fingerstick) 240 mg/dL (70-99) 251 mg/dL (70-99) 210 mg/dL (70-99) Sodium Level 140 mmol/L (136-145) Potassium Level 3.6 mmol/L (3.5-5.1) Chloride Level 102 mmol/L (98-107) Carbon Dioxide Level 28 mmol/L (21-32) Anion Gap 10 (6-14) Blood Urea Nitrogen 27 mg/dL (8-26) Creatinine 1.8 mg/dL (0.7-1.3) Estimated GFR (Cockcroft-Gault) 40.0 Glucose Level 214 mg/dL (70-99) Calcium Level 9.1 mg/dL (8.5-10.1) Test 04/28/19 10:50 04/28/19 16:43 04/28/19 20:35 04/29/19 04:20 Glucose (Fingerstick) 245 mg/dL (70-99) 136 mg/dL (70-99) 314 mg/dL (70-99) Sodium Level 141 mmol/L (136-145) Potassium Level 3.8 mmol/L (3.5-5.1) Chloride Level 104 mmol/L (98-107) Carbon Dioxide Level 29 mmol/L (21-32) Anion Gap 8 (6-14) Blood Urea Nitrogen 27 mg/dL (8-26) Creatinine 1.9 mg/dL (0.7-1.3) Estimated GFR (Cockcroft-Gault) 37.6 Glucose Level 259 mg/dL (70-99) Calcium Level 9.0 mg/dL (8.5-10.1) Hepatitis B Surface Antigen Nonreactive (Nonreactive) Test 04/29/19 07:45 04/29/19 11:21 Glucose (Fingerstick) 195 mg/dL (70-99) 176 mg/dL (70-99) Laboratory Tests Test 04/28/19 16:43 04/28/19 20:35 04/29/19 04:20 04/29/19 07:45 Glucose (Fingerstick) 136 mg/dL (70-99) 314 mg/dL (70-99) 195 mg/dL (70-99) Sodium Level 141 mmol/L (136-145) Potassium Level 3.8 mmol/L (3.5-5.1) Chloride Level 104 mmol/L (98-107) Carbon Dioxide Level 29 mmol/L (21-32) Anion Gap 8 (6-14) Blood Urea Nitrogen 27 mg/dL (8-26) Creatinine 1.9 mg/dL (0.7-1.3) Estimated GFR (Cockcroft-Gault) 37.6 Glucose Level 259 mg/dL (70-99) Calcium Level 9.0 mg/dL (8.5-10.1) Hepatitis B Surface Antigen Nonreactive (Nonreactive) Test 04/29/19 11:21 Glucose (Fingerstick) 176 mg/dL (70-99) Brief Hospital Course Mr. Ramírez is a 53 old male, admit renal failure, DM2, poor control, Inc lantus to 15 qhs from 10 (started by colleague) Start glyburide BID NO metformin Check hgba1c 24 hr urine Avoid nephrotoxins, NO PT needs Discharge Information Scheduled Glyburide (Glyburide) 5 Mg Tablet, 5 MG PO BIDWMEALS for DM2, #60 Ref 1 Prescribed by: GABY JENKINS on 04/29/19 1202 GABY JENKINS MD Apr 29, 2019 13:33
--- NOTE | 2019-04-29 15:17 | NUR ---
Pt. discharged to home with Rx, verbalized understanding of discharge instructions. 24hr urine walked down to lab. Addendum: 04/29/19 at 1518 by WADE PASCUAL RN wrong patient Addendum: 04/29/19 at 1519 by WADE PASCUAL RN Corrected, note was charted on correct patient.
[2019-04-29 23:07] LABS: HEMOGLOBIN A1C 10.2 % (4.8-5.6)
== END 2019-04-29 15:20 | disposition home or self-care (01) | DRG 314 ==
LOC: ER 12:41 → 4 NORTH 16:36
PROVIDERS: ADMIT Family Medicine; ATTEND Family Medicine
DX: T82.41XA Breakdown (mechanical) of vascular dialysis catheter, initial encounter (principal); N18.6 End stage renal disease; I12.0 Hypertensive chronic kidney disease with stage 5 chronic kidney disease or end stage renal disease; N17.9 Acute kidney failure, unspecified; E11.22 Type 2 diabetes mellitus with diabetic chronic kidney disease; E11.65 Type 2 diabetes mellitus with hyperglycemia; E78.5 Hyperlipidemia, unspecified; Z99.2 Dependence on renal dialysis; Z83.3 Family history of diabetes mellitus; Z82.49 Family history of ischemic heart disease and other diseases of the circulatory system; D64.9 Anemia, unspecified; Z79.84 Long term (current) use of oral hypoglycemic drugs; Y82.8 Other medical devices associated with adverse incidents; Y92.89 Other specified places as the place of occurrence of the external cause
CPT/HCPCS: 36415; 71045; 80048; 80053; 80069; 82962; 83036; 83880; 84484; 85007; 85025; 85610; 87340; 93005; 96374; J1644; J1815; 99285-25; G0378

== ENCOUNTER 2021-07-21 11:57 | Inpatient (IN) | payer MEDICAID ==
[~2021-07-21] VITALS: Ht 177.8 cm; Wt 105.9 kg
[~2021-07-21 11:57] MED LIST changes: +DULA0.75 SQ; +EMPA10TA PO; +GLYB5TAB3 PO; +INSU100I11 SQ; +INSU100I32 SQ; +PIOG1TAB38 PO
[2021-07-21] MEDS ORDERED: IV NORMAL SALINE 1000ML BAG 1,000 ML IV SCH (12:45)
[2021-07-21] MEDS ORDERED: fentaNYL PF VIAL 100 MCG/2 ML VIAL IVP ONE (12:45)
[2021-07-21] MEDS ORDERED: ONDANSETRON PF 4 MG/2 ML VIAL. IVP ONE (12:45)
[2021-07-21] MEDS ORDERED: FAMOTIDINE 20 MG/2 ML VIAL IVP ONE (12:45)
--- NOTE | 2021-07-21 12:52 | RAD ---
XR CHEST 1V CLINICAL INDICATIONS: Reason: chest pain, shortness of air. COMPARISON: July 27, 2019 Findings: Elevation of the right hemidiaphragm is unchanged. Small bilateral nodular lung infiltrates are seen. No pleural effusion or pneumothorax is evident. The heart size, pulmonary vasculature, med iastinum and both natalya are unremarkable. IMPRESSION: Small bilateral nodular lung infiltrates. Electronically signed by: Adrien Corrigan MD (07/21/2021 12:50 PM) [id number]
--- NOTE | 2021-07-21 13:01 | EKG ---
[facility] [address] [place] [address] Test Date: 2021-07-21 Test Time: 12:53:39 Pat Name: BK BUTT Department: Room: Gender: M Medical Doctor Md/Medical Director: [id number] : 1965 Requested By: KAHLIL NÚÑEZ Order Number: [id number] Reading MD: Sascha Aguilar Measurements Intervals Marshall Rate: 84 P: 51 NV: 140 QRS: 21 QRSD: 74 T: 26 QT: 352 QTc: 419 Interpretive Statements SINUS RHYTHM Electronically Signed On 07-23-2021 16:07:19 BILLING COORDINATOR by Sascha Aguilar
[2021-07-21 13:14] LABS: BASO % 1 % (0-3); EOS % 0 % (0-3); HEMATOCRIT 38.1 % (39.0-53.0); HEMOGLOBIN 12.6 g/dL (13.0-17.5); LYMPH # 0.5 x10^3/uL (1.0-4.8); LYMPH % 12 % (24-48); MEAN CORPUSCULAR HEMOGLOBIN 31 pg (25-35); MEAN CORPUSCULAR HGB CONC 33 g/dL (31-37); MEAN CORPUSCULAR VOLUME 93 fL (79-100); MONO # 0.4 x10^3/uL (0.0-1.1); MONO % 11 % (0-9); NEUT # 2.9 x10^3/uL (1.8-7.7); NEUT % 76 % (31-73); PLATELET COUNT 158 x10^3/uL (140-400); RED BLOOD COUNT 4.12 x10^6/uL (4.30-5.70); RED CELL DISTRIBUTION WIDTH 12.5 % (11.5-14.5); WHITE BLOOD COUNT 3.8 x10^3/uL (4.0-11.0)
--- NOTE | 2021-07-21 13:36 | PHYS DOC ---
Past Medical History Past Medical History: Diabetes-Type II, Renal Failure Past Surgical History: No Surgical History Smoking Status: Never Smoker Alcohol Use: None Drug Use: None General Adult EDM: Chief Complaint: FLU SYMPTOM HPI: HPI: Patient is a 56 year old male who presents with 10 days of nausea, vomiting, diarrhea, shortness of breath, cough, chest tightness and body aches. He states he has not taken any Tylenol or ibuprofen because he does not have good kidneys. He states that he had been on dialysis but then got taken off of dialysis. He states that his primary care doctor called and told him that his kidneys are failing again. Patient states he has not been tested for COVID. Rates his overall discomfort at a 7 out of 10 at this time. Denies syncope, dizziness, headache, vision change, numbness or tingling, focal weakness. Review of Systems: Review of Systems: Constitutional: Denies fever or +chills. [] Eyes: Denies change in visual acuity. [] HENT: Denies nasal congestion or sore throat. [] Respiratory: +cough or +shortness of breath. [] Cardiovascular: +chest pain or denies edema. [] GI: + abdominal pain, +nausea, +vomiting, denies bloody stools or +diarrhea. [] : Denies dysuria. [] Musculoskeletal: Denies back pain or joint pain. [] Integument: Denies rash. [] Neurologic: Denies headache, focal weakness or sensory changes. [] Endocrine: Denies polyuria or polydipsia. [] Lymphatic: Denies swollen glands. [] Psychiatric: Denies depression or anxiety. [] Heart Score: C/O Chest Pain: No HEART Score for Chest Pain: HEART Score for Chest Pain Response (Comments) Value History Slighlty/Non-Suspicious 0 ECG Normal 0 Age >45 - < 65 1 Risk Factors 1 or 2 Risk Factors 1 Troponin < Normal Limit 0 Total 2 Risk Factors: Risk Factors: DM, Current or recent (<one month) smoker, HTN, HLP, family history of CAD, obesity. Risk Scores: Score 0 - 3: 2.5% MACE over next 6 weeks - Discharge Home Score 4 - 6: 20.3% MACE over next 6 weeks - Admit for Clinical Observation Score 7 - 10: 72.7% MACE over next 6 weeks - Early Invasive Strategies Current Medications: Current Medications Medications (Trade) Dose Ordered Sig/Ismael Start Time Stop Time Status Last Admin Dose Admin Famotidine (Pepcid Vial) 20 mg 1X ONCE 07/21/21 12:45 07/21/21 12:46 DC 07/21/21 13:04 20 MG Fentanyl Citrate (Fentanyl 2ml Vial) 25 mcg 1X ONCE 07/21/21 12:45 07/21/21 12:46 DC 07/21/21 13:08 25 MCG Ondansetron HCl (Zofran) 4 mg 1X ONCE 07/21/21 12:45 07/21/21 12:46 DC 07/21/21 13:02 4 MG Sodium Chloride 1,000 ml @ 1,000 mls/hr Q1H 07/21/21 12:45 07/21/21 13:44 07/21/21 13:04 1,000 MLS/HR Allergies: Allergies: Allergies Coded Allergies Type Severity Reaction Last Updated Verified No Known Drug Allergies 02/11/19 No Physical Exam: PE: Constitutional: Well developed, well nourished, no acute distress, non-toxic appearance. [] HENT: Normocephalic, atraumatic, bilateral external ears normal, oropharynx moist, no oral exudates, nose normal. [] Eyes: PERRLA, EOMI, conjunctiva normal, no discharge. [] Neck: Normal range of motion, no tenderness, supple, no stridor. [] Cardiovascular:Heart rate regular rhythm, no murmur [] Lungs & Thorax: Bilateral breath sounds clear to auscultation [] Abdomen: Bowel sounds normal, soft, no tenderness, no masses, no pulsatile masses. [] Skin: Warm, dry, no erythema, no rash. [] Back: No tenderness, no CVA tenderness. [] Extremities: No tenderness, no cyanosis, no clubbing, ROM intact, no edema. [] Neurologic: Alert and oriented X 3, normal motor function, normal sensory function, no focal deficits noted. [] Psychologic: Affect normal, judgement normal, mood normal. [] Current Patient Data: Labs: Laboratory Tests Test 07/21/21 13:02 White Blood Count 3.8 x10^3/uL (4.0-11.0) L Red Blood Count 4.12 x10^6/uL (4.30-5.70) L Hemoglobin 12.6 g/dL (13.0-17.5) L Hematocrit 38.1 % (39.0-53.0) L Mean Corpuscular Volume 93 fL (79-100) Mean Corpuscular Hemoglobin 31 pg (25-35) Mean Corpuscular Hemoglobin Concent 33 g/dL (31-37) Red Cell Distribution Width 12.5 % (11.5-14.5) Platelet Count 158 x10^3/uL (140-400) Neutrophils (%) (Auto) 76 % (31-73) H Lymphocytes (%) (Auto) 12 % (24-48) L Monocytes (%) (Auto) 11 % (0-9) H Eosinophils (%) (Auto) 0 % (0-3) Basophils (%) (Auto) 1 % (0-3) Neutrophils # (Auto) 2.9 x10^3/uL (1.8-7.7) Lymphocytes # (Auto) 0.5 x10^3/uL (1.0-4.8) L Monocytes # (Auto) 0.4 x10^3/uL (0.0-1.1) Eosinophils # (Auto) 0.0 x10^3/uL (0.0-0.7) Basophils # (Auto) 0.0 x10^3/uL (0.0-0.2) Laboratory Tests 07/21/21 13:02 Vital Signs: Vital Signs Date Time Temp Pulse Resp B/P (MAP) Pulse Ox O2 Delivery O2 Flow Rate FiO2 07/21/21 12:28 98.8 93 20 133/99 (110) 97 Room Air 98.8 EKG: EK and read by Dr. Ocampo as sinus rhythm and no STEMI Radiology/Procedures: Radiology/Procedures: [] Impression: [facility] [address] [place] [address] IMAGING REPORT Signed PATIENT: BK BUTT ACCOUNT: [id number] : 1965 LOCATION: ER AGE: 56 SEX: M EXAM STATUS: REG ER ORD. PHYSICIAN: KAHLIL NÚÑEZ APRN REASON: chest pain, soa PROCEDURE: PORTABLE CHEST 1V XR CHEST 1V CLINICAL INDICATIONS: Reason: chest pain, shortness of air. COMPARISON: July 27, 2019 Findings: Elevation of the right hemidiaphragm is unchanged. Small bilateral nodular lung infiltrates are seen. No pleural effusion or pneumothorax is evident. The heart size, pulmonary vasculature, mediastinum and both natalya are unremarkable. IMPRESSION: Small bilateral nodular lung infiltrates. Electronically signed by: Nely Corrigan MD (07/21/2021 12:50 PM) [id number] DICTATED and SIGNED BY: NELY CORRIGAN MD DATE: 07/21/21 [id number] [facility] [address] [place] [address] IMAGING REPORT Signed PATIENT: BK BUTT ACCOUNT: [id number] : 1965 LOCATION: ER AGE: 56 SEX: M EXAM STATUS: REG ER ORD. PHYSICIAN: KAHLIL NÚÑEZ APRN REASON: vomiting, diarrhea, abdominal pain PROCEDURE: CT ABDOMEN PELVIS WO CONTRAST CT ABDOMEN+PELVIS WO History: Vomiting, diarrhea, abdominal pain Comparison: None. Technique: CT of the abdomen and pelvis without contrast. Findings: Patchy right greater than left basilar airspace opacities. Minimal coronary artery calcification. The liver, gallbladder and adrenal glands are unremarkable. Fatty atrophy of the pancreas. Granulomatous calcifications of the spleen. Bilateral kidneys demonstrate perinephric adipose stranding. No nephrolithiasis or hydronephrosis. Unremarkable bladder and prostate. The stomach is within normal limits. Mild fatty infiltration noted at the second portion of the duodenum. Mild proximal jejunal while thickening and minimal distention. No evidence of small bowel obstruction. Mural fatty infiltration is noted in the ileum. The colon is unremarkable. No intra-abdominal free air or free fluid. Unremarkable vasculature. No adenopathy. Moderate fat-containing umbilical hernia. Transitional lumbosacral anatomy with partial sacralization of L5. No acute osseous abnormality. Severe left psoas muscle atrophy. Impression: 1. Mild wall thickening and minimal distention of the proximal jejunum may represent enteritis. 2. Right greater than left basilar airspace opacity opacities concerning for infectious process. 3. Nonspecific fatty mural infiltration at the duodenum and ileum. This can be seen in inflammatory bowel disease and clinical correlation is recommended. ------ Exposure: One or more of the following individualized dose reduction techniques were utilized for this examination: 1. Automated exposure control 2. Adjustment of the mA and/or kV according to patient size 3. Use of iterative reconstruction technique. Electronically signed by: Joo Gilman MD (07/21/2021 1:38 PM) [facility] DICTATED and SIGNED BY: JOO GILMAN MD DATE: 07/21/21 [id number] 0 Course & Med Decision Making: Course & Med Decision Making Pertinent Labs and Imaging studies reviewed. (See chart for details) COVID-19 CRITERIA: The patient was evaluated during the global COVID-19 pandemic, and that diagnosis was suspected/considered upon their initial presentation. Their evaluation, treatment and testing was consistent with current guidelines for patients who present with complaints or symptoms that may be related to COVID-19. See HPI. Alert and oriented x4. Ambulatory steady gait. Speaks in full clear sentences. Skin pink warm and dry. Lungs are clear in upper lobes and dimin ished in lower lobes. Abdomen soft and nontender. Vital signs are within normal limits. No peripheral edema. [] Dragon Disclaimer: Dragon Disclaimer: This electronic medical record was generated, in whole or in part, using a voice recognition dictation system. COVID-19 Patient Risks: Age 65 or older: No Sign of co-morbidity: Yes Exp to person + for COVID: No Exp to PUI: No Travel from affected area: No Lower respiratory symptoms: Yes Fever: Yes Other: Yes (N,V,D) PPE Use: Full PPE with N95 mask or PAPR: Yes Departure Departure Impression: Primary Impression: SARAH (acute kidney injury) Additional Impression: Pneumonia due to COVID-19 virus Disposition: ADMITTED INPATIENT Admitting Physician: HIMS Condition: STABLE Referrals: SVEN JANE MD (PCP) KAHLIL NÚÑEZ APRN Jul 21, 2021 13:36
[2021-07-21 13:39] LABS: CREATININE 3.6 mg/dL (0.7-1.3); GFR 17.8; POTASSIUM 4.8 mmol/L (3.5-5.1)
--- NOTE | 2021-07-21 13:41 | RAD ---
CT ABDOMEN+PELVIS WO History: Vomiting, diarrhea, abdominal pain Comparison: None. Technique: CT of the abdomen and pelvis without contrast. Findings: Patchy right greater than left basilar airspace opacities. Minimal coronary artery calcification. The liver, gallbladder and adrenal glands are unremarkable. Fatty atrophy of the pancreas. Granulomat ous calcifications of the spleen. Bilateral kidneys demonstrate perinephric adipose stranding. No nep hrolithiasis or hydronephrosis. Unremarkable bladder and prostate. The stomach is within normal limits. Mild fatty infiltration noted at the second portion of the duode num. Mild proximal jejunal while thickening and minimal distention. No evidence of small bowel obstru ction. Mural fatty infiltration is noted in the ileum. The colon is unremarkable. No intra-abdominal free air or free fluid. Unremarkable vasculature. No adenopathy. Moderate fat-cont aining umbilical hernia. Transitional lumbosacral anatomy with partial sacralization of L5. No acute osseous abnormality. Severe left psoas muscle atrophy. Impression: 1. Mild wall thickening and minimal distention of the proximal jejunum may represent enteritis. 2. Right greater than left basilar airspace opacity opacities concerning for infectious process. 3. Nonspecific fatty mural infiltration at the duodenum and ileum. This can be seen in inflammatory bowel disease and clinical correlation is recommended. ------ Exposure: One or more of the following individualized dose reduction techniques were utilized for thi s examination: 1. Automated exposure control 2. Adjustment of the mA and/or kV according to patient size 3. Use of iterative reconstruction technique. Electronically signed by: Joo Santos MD (07/21/2021 1:38 PM) [facility]
[2021-07-21 13:43] LABS: INFLUENZA A PATIENT NEGATIVE (NEGATIVE); INFLUENZA B PATIENT NEGATIVE (NEGATIVE)
[2021-07-21 13:45] LABS: ALBUMIN/GLOBULIN RATIO 0.7 (1.0-1.7); TOTAL BILIRUBIN 0.4 mg/dL (0.2-1.0); TOTAL PROTEIN 7.6 g/dL (6.4-8.2)
[2021-07-21] MEDS ORDERED: PIPERACILLIN/TAZOBACTAM 3.375 GM in IV NORMAL SALINE 50ML 50 ML IV ONE (13:45)
[2021-07-21] MEDS ORDERED: PIPERACILLIN/TAZOBACTAM 2.25 GM in IV NORMAL SALINE 50ML 50 ML IV ONE (14:00)
[2021-07-21] MEDS ORDERED: INSULIN REGULAR 100 UNIT/ML 3ML VIAL. IV ONE (14:00)
[2021-07-21] MEDS ORDERED: ONDANSETRON PF 4 MG/2 ML VIAL. IVP PRN (14:30)
[2021-07-21] MEDS ORDERED: ACETAMINOPHEN 325 MG TABLET. PO PRN (14:30)
[2021-07-21 15:10] LABS: BASE EXCESS ABG -9 mmol/L (-3-3); HCO3 ABG 16 mmol/L (21-28); PCO2 ABG 30 mmHg (35-46); PO2 ABG 72 mmHg (75-108); SAT O2 ABG 93 % (92-99)
[2021-07-21 15:17] LABS: FIO2 ABG 3L NC
[2021-07-21 16:00] VITALS: BP 155/77
[2021-07-21] MEDS ORDERED: INSU3INS2 SQ (16:36)
[2021-07-21] MEDS ORDERED: PRAV40TA2 PO (16:36)
[2021-07-21] MEDS ORDERED: LOSA100T14 PO (16:36)
[2021-07-21] MEDS ORDERED: INSU100I11 SQ (16:36)
[2021-07-21] MEDS ORDERED: PIP/TAZO PER PHARMACY MC PRN (17:45)
[2021-07-21] MEDS: DEXAMETHASONE SOD PHOS 4 MG/ML VIAL IVP SCH (17:45)
[2021-07-21] MEDS ORDERED: DEXTROSE 50% 25 GM / 50ML DISP.SYRIN. IV PRN (17:45)
[2021-07-21] MEDS: ASCORBIC ACID 1,000 MG TABLET PO SCH (17:49)
[2021-07-21] MEDS: ZINC SULFATE 220 MG CAPSULE. PO SCH (17:49)
[2021-07-21] MEDS: LOSARTAN POTASSIUM 50 MG TABLET. PO SCH (17:49)
[2021-07-21] MEDS: PIPERACILLIN/TAZOBACTAM 2.25 GM in IV NORMAL SALINE 50ML 50 ML IV SCH ×2 (18:00→23:25)
[2021-07-21] MEDS ORDERED: FLU VACC QUAD 21-22 (6MOS+) PF 0.5 ML SYRINGE. VAX IM ONE (18:00)
[2021-07-21] MEDS: IV NORMAL SALINE 1000ML BAG 1,000 ML IV SCH (18:01)
[2021-07-21] MEDS: INSULIN LISPRO 300 UNITS/3 ML VIAL. SQ SCH ×3 (18:02→22:15)
--- NOTE | 2021-07-21 18:09 | PDOC1 ---
History and Physical Date of Admission Date of Admission DATE: 07/21/21 TIME: 18:03 Source Source: Chart review, Patient History of Present Illness History of Present Illness MR. Ramírez is a 56 year old male, admit from ER, with hypxoia. He complains of 10 days of nausea, vomiting, diarrhea, shortness of breath with cough. He says he has eaten almost no food in 10 days.not taking pain meds, but has pain and myalgias and weakness, he does have COVID exposure. Previously had been on dialysis but improved. Pain 7 out of 10 in the ER, btter now, meds given. . Denies syncope, dizziness, headache, vision change, numbness or tingling, focal weakness. Past Medical History Cardiovascular: HTN, Hyperlipidemia Pulmonary: No pertinent hx Heme/Onc: No pertinent hx Renal/: Chronic renal insuff, Acute renal failure Endocrine: Diabetes Past Surgical History Past Surgical History: No pertinent history Family History Family History: Diabetes, Hypertension Social History Smoke: No ALCOHOL: none Drugs: None Current Problem List Problem List Problems Medical Problems: (1) SARAH (acute kidney injury) Status: Acute (2) Pneumonia due to COVID-19 virus Status: Acute Current Medications Current Medications Current Medications Sodium Chloride 1,000 ml @ 1,000 mls/hr Q1H IV Last administered on 07/21/21at 13:04; Start 07/21/21 at 12:45; Stop 07/21/21 at 13:44; Status DC Fentanyl Citrate (Fentanyl 2ml Vial) 25 mcg 1X ONCE IVP Last administered on 07/21/21at 13:08; Start 07/21/21 at 12:45; Stop 07/21/21 at 12:46; Status DC Ondansetron HCl (Zofran) 4 mg 1X ONCE IVP Last administered on 07/21/21at 13:02; Start 07/21/21 at 12:45; Stop 07/21/21 at 12:46; Status DC Famotidine (Pepcid Vial) 20 mg 1X ONCE IVP Last administered on 07/21/21at 13:04; Start 07/21/21 at 12:45; Stop 07/21/21 at 12:46; Status DC Piperacillin Sod/ Tazobactam Sod 3.375 gm/Sodium Chloride 50 ml @ 100 mls/hr 1X ONCE IV ; Start 07/21/21 at 13:45; Stop 07/21/21 at 14:14; Status UNV Piperacillin Sod/ Tazobactam Sod 2.25 gm/Sodium Chloride 50 ml @ 100 mls/hr 1X ONCE IV Last administered on 07/21/21at 14:20; Start 07/21/21 at 14:00; Stop 07/21/21 at 14:29; Status DC Insulin Human Regular (HumuLIN R VIAL) 5 unit 1X ONCE IV Last administered on 07/21/21at 14:30; Start 07/21/21 at 14:00; Stop 07/21/21 at 14:01; Status DC Ondansetron HCl (Zofran) 4 mg PRN Q8HRS PRN IVP NAUSEA/VOMITING; Start 07/21/21 at 14:30; Stop 07/22/21 at 14:29 Acetaminophen (Tylenol) 650 mg PRN Q4HRS PRN PO FEVER > 100.3'F; Start 07/21/21 at 14:30; Stop 07/22/21 at 14:29 Influenza Virus Vaccine Quadrival (Flulaval Quad Syringe) 0.5 ml ONCE ONCE VAX IM Last administered on 07/21/21at 17:06; Start 07/21/21 at 18:00; Stop 07/21/21 at 18:01; Status DC Losartan Potassium (Cozaar) 100 mg DAILY PO ; Start 07/21/21 at 18:00 Atorvastatin Calcium (Lipitor) 10 mg QHS PO ; Start 07/21/21 at 21:00 Insulin Human Lispro (HumaLOG) 30 units TIDWMEALS SQ ; Start 07/21/21 at 18:00 Insulin Human Lispro (HumaLOG) 0-9 UNITS QIDACHS SQ ; Start 07/21/21 at 21:00 Dextrose (Dextrose 50%-Water Syringe) 12.5 gm PRN Q15MIN PRN IV SEE COMMENTS; Start 07/21/21 at 17:45 Insulin Glargine (Lantus Syringe) 40 unit BID SQ ; Start 07/21/21 at 21:00 Piperacillin Sod/ Tazobactam Sod (Zosyn Per Pharmacy) 1 each PRN DAILY PRN MC SEE COMMENTS; Start 07/21/21 at 17:45 Dexamethasone Sodium Phosphate (Decadron) 6 mg DAILY IVP ; Start 07/21/21 at 17:45 Ascorbic Acid (Vitamin C) 1,000 mg DAILY PO ; Start 07/21/21 at 18:00 Zinc Sulfate (Orazinc) 220 mg DAILY PO ; Start 07/21/21 at 18:00 Sodium Chloride 1,000 ml @ 100 mls/hr Q10H IV ; Start 07/21/21 at 18:00 Piperacillin Sod/ Tazobactam Sod 2.25 gm/Sodium Chloride 50 ml @ 100 mls/hr Q6HRS IV ; Start 07/21/21 at 19:00 Active Scripts Active Reported Pravastatin Sodium 40 Mg Tablet 1 Tab PO QHS Losartan Potassium 100 Mg Tablet 100 Mg PO DAILY Soliqua 100 Unit-33 Mcg/ml Pen (Insulin Glargine/Lixisenatide) 3 Ml Insuln.pen 40 Units SQ HS Humalog (Insulin Lispro) 100 Unit/1 Ml Insuln.pen 20 Unit SQ TIDAC Allergies Allergies: Coded Allergies: No Known Drug Allergies (Unverified , 02/11/19) ROS General: YES: Chills, Fatigue, Malaise PSYCHOLOGICAL ROS: No: Anxiety, Behavioral Disorder, Concentration difficultie, Decreased libido, Depression, Disorientation, Hallucinations, Hostility, Irritablity, Memory difficulties, Mood Swings, Obsessive thoughts, Physical abuse, Sexual abuse, Sleep disturbances, Suicidal ideation, Other Eyes: No Blurry vision, No Decreased vision, No Double vision, No Dry eyes, No Excessive tearing, No Eye Pain, No Itchy Eyes, No Loss of vision, No Photophobia , No Scotomata, No Uses contacts, No Uses glasses, No Other HEENT: YES: Heacaches; No: Visual Changes, Hearing change, Nasal congestion, Nasal discharge, Oral lesions, Sinus pain, Sore Throat, Epistaxis, Sneezing, Snoring, Tinnitus, Vertigo, Vocal changes, Other Respiratory: YES: Cough, Shortness of breath, SOB with excertion, Tachypnea; No: Hemoptysis, Orthopnea, Pleuritic Pain, Sputum Changes, Stridor, Wheezing, Other Cardiovascular: yes Chest Pain Gastrointestinal: Yes Nausea, Yes Abdominal Pain, Yes Diarrhea; No Vomiting, No Constipation, No Melena, No Hematochezia, No Other Genitourinary: No Dysuria, No Frequency, No Incontinence, No Hematuria, No Retention, No Discharge, No Urgency, No Pain, No Flank Pain, No Other, No , No , No , No , No , No , No Musculoskeletal: No Gait Disturbance, No Joint Pain, No Joint Stiffness, No Joint Swelling, No Muscle Pain, No Muscular Weakness, No Pain In:, No Swelling In:, No Other Neurological: No Behavorial Changes, No Bowel/Bladder ControlChng, No Confusion, No Dizziness, No Gait Disturbance, No Headaches, No Impaired Strategic Planning Manager rd/balance, No Memory Loss, No Numbness/Tingling, No Seizures, No Speech Problems, No Tremors, No Visual Changes, No Weakness, No Other Skin: Yes Dry Skin; No Eczema, No Hair Changes, No Lumps, No Mole Changes, No Mottling, No Nail Changes, No Pruritus, No Rash, No Skin Lesion Changes, No Other, No Acne Physical Exam General: Alert, Oriented X3, Cooperative, mild distress HEENT: Atraumatic Lungs: Clear to auscultation Heart: S1S2, no murmurs, other Abdomen: Soft (mild tender, ) Rectal Exam: not examined Extremities: No clubbing, Normal pulses Skin: No breakdown Neuro: Normal speech, Normal tone, Sensation intact Psych/Mental Status: Mental status NL, Mood NL Vitals Vitals Vital Signs Date Time Temp Pulse Resp B/P (MAP) Pulse Ox O2 Delivery O2 Flow Rate FiO2 07/21/21 16:52 Nasal Cannula 2.0 07/21/21 16:00 98.4 83 20 155/77 (103) 95 98.4 Labs Labs Laboratory Tests Test 07/21/21 12:53 07/21/21 13:00 07/21/21 13:02 07/21/21 15:10 Influenza Type A Antigen Negative (NEGATIVE) Influenza Type B Antigen Negative (NEGATIVE) SARS-CoV-2 Antigen (Rapid) Positive (NEGATIVE) Acetone Level Neg (NEG) White Blood Count 3.8 x10^3/uL (4.0-11.0) Red Blood Count 4.12 x10^6/uL (4.30-5.70) Hemoglobin 12.6 g/dL (13.0-17.5) Hematocrit 38.1 % (39.0-53.0) Mean Corpuscular Volume 93 fL (79-100) Mean Corpuscular Hemoglobin 31 pg (25-35) Mean Corpuscular Hemoglobin Concent 33 g/dL (31-37) Red Cell Distribution Width 12.5 % (11.5-14.5) Platelet Count 158 x10^3/uL (140-400) Neutrophils (%) (Auto) 76 % (31-73) Lymphocytes (%) (Auto) 12 % (24-48) Monocytes (%) (Auto) 11 % (0-9) Eosinophils (%) (Auto) 0 % (0-3) Basophils (%) (Auto) 1 % (0-3) Neutrophils # (Auto) 2.9 x10^3/uL (1.8-7.7) Lymphocytes # (Auto) 0.5 x10^3/uL (1.0-4.8) Monocytes # (Auto) 0.4 x10^3/uL (0.0-1.1) Eosinophils # (Auto) 0.0 x10^3/uL (0.0-0.7) Basophils # (Auto) 0.0 x10^3/uL (0.0-0.2) Sodium Level 131 mmol/L (136-145) Potassium Level 4.8 mmol/L (3.5-5.1) Chloride Level 97 mmol/L (98-107) Carbon Dioxide Level 21 mmol/L (21-32) Anion Gap 13 (6-14) Blood Urea Nitrogen 67 mg/dL (8-26) Creatinine 3.6 mg/dL (0.7-1.3) Estimated GFR (Cockcroft-Gault) 17.8 BUN/Creatinine Ratio 19 (6-20) Glucose Level 426 mg/dL (70-99) Lactic Acid Level 1.7 mmol/L (0.4-2.0) Calcium Level 7.0 mg/dL (8.5-10.1) Total Bilirubin 0.4 mg/dL (0.2-1.0) Aspartate Amino Transf (AST/SGOT) 38 U/L (15-37) Alanine Aminotransferase (ALT/SGPT) 45 U/L (16-63) Alkaline Phosphatase 129 U/L (46-116) Troponin I High Sensitivity 19 ng/L (4-75) Total Protein 7.6 g/dL (6.4-8.2) Albumin 3.0 g/dL (3.4-5.0) Albumin/Globulin Ratio 0.7 (1.0-1.7) Lipase 48 U/L (73-393) O2 Saturation 93 % (92-99) Arterial Blood pH 7.35 (7.35-7.45) Arterial Blood pCO2 at Patient Temp 30 mmHg (35-46) Arterial Blood pO2 at Patient Temp 72 mmHg (75-108) Arterial Blood HCO3 16 mmol/L (21-28) Arterial Blood Base Excess -9 mmol/L (-3-3) FiO2 3l nc Test 07/21/21 16:53 Glucose (Fingerstick) 353 mg/dL (70-99) Laboratory Tests Test 07/21/21 12:53 07/21/21 13:00 07/21/21 13:02 07/21/21 15:10 Influenza Type A Antigen Negative (NEGATIVE) Influenza Type B Antigen Negative (NEGATIVE) SARS-CoV-2 Antigen (Rapid) Positive (NEGATIVE) Acetone Level Neg (NEG) White Blood Count 3.8 x10^3/uL (4.0-11.0) Red Blood Count 4.12 x10^6/uL (4.30-5.70) Hemoglobin 12.6 g/dL (13.0-17.5) Hematocrit 38.1 % (39.0-53.0) Mean Corpuscular Volume 93 fL (79-100) Mean Corpuscular Hemoglobin 31 pg (25-35) Mean Corpuscular Hemoglobin Concent 33 g/dL (31-37) Red Cell Distribution Width 12.5 % (11.5-14.5) Platelet Count 158 x10^3/uL (140-400) Neutrophils (%) (Auto) 76 % (31-73) Lymphocytes (%) (Auto) 12 % (24-48) Monocytes (%) (Auto) 11 % (0-9) Eosinophils (%) (Auto) 0 % (0-3) Basophils (%) (Auto) 1 % (0-3) Neutrophils # (Auto) 2.9 x10^3/uL (1.8-7.7) Lymphocytes # (Auto) 0.5 x10^3/uL (1.0-4.8) Monocytes # (Auto) 0.4 x10^3/uL (0.0-1.1) Eosinophils # (Auto) 0.0 x10^3/uL (0.0-0.7) Basophils # (Auto) 0.0 x10^3/uL (0.0-0.2) Sodium Level 131 mmol/L (136-145) Potassium Level 4.8 mmol/L (3.5-5.1) Chloride Level 97 mmol/L (98-107) Carbon Dioxide Level 21 mmol/L (21-32) Anion Gap 13 (6-14) Blood Urea Nitrogen 67 mg/dL (8-26) Creatinine 3.6 mg/dL (0.7-1.3) Estimated GFR (Cockcroft-Gault) 17.8 BUN/Creatinine Ratio 19 (6-20) Glucose Level 426 mg/dL (70-99) Lactic Acid Level 1.7 mmol/L (0.4-2.0) Calcium Level 7.0 mg/dL (8.5-10.1) Total Bilirubin 0.4 mg/dL (0.2-1.0) Aspartate Amino Transf (AST/SGOT) 38 U/L (15-37) Alanine Aminotransferase (ALT/SGPT) 45 U/L (16-63) Alkaline Phosphatase 129 U/L (46-116) Troponin I High Sensitivity 19 ng/L (4-75) Total Protein 7.6 g/dL (6.4-8.2) Albumin 3.0 g/dL (3.4-5.0) Albumin/Globulin Ratio 0.7 (1.0-1.7) Lipase 48 U/L (73-393) O2 Saturation 93 % (92-99) Arterial Blood pH 7.35 (7.35-7.45) Arterial Blood pCO2 at Patient Temp 30 mmHg (35-46) Arterial Blood pO2 at Patient Temp 72 mmHg (75-108) Arterial Blood HCO3 16 mmol/L (21-28) Arterial Blood Base Excess -9 mmol/L (-3-3) FiO2 3l nc Test 07/21/21 16:53 Glucose (Fingerstick) 353 mg/dL (70-99) VTE Prophylaxis Ordered VTE Prophylaxis Devices: No VTE Pharmacological Prophylaxi: Yes Assessment/Plan Assessment/Plan sepsis acute COVID infection COVID pneumonia, zosyn, steroid, vitamins acute hypoxia, he is 10 days out from symptoms onset, outside of [facility] acute renal failiure, dry with acute vasomotor nephropathy - and ATN, consult Renal if not better in AM, COVId related Dm2, with marked hyperglycmeia, increase doses and SSI Justifications for Admission Other Justification GABY JENKINS MD Jul 21, 2021 18:09
[2021-07-21 19:00] VITALS: BP 130/63
[2021-07-21] MEDS: ATORVASTATIN CALCIUM 10 MG TABLET. PO SCH (22:12)
[2021-07-21] MEDS: HEPARIN for SUB-Q USE 5,000 UNIT/ML VIAL. SQ SCH (22:14)
[2021-07-21] MEDS: INSULIN GLARGINE SYRINGE. SQ SCH (22:15)
[2021-07-21 23:32] VITALS: BP 129/64
[2021-07-22 02:38] LABS: BASO % 1 % (0-3); EOS % 0 % (0-3); HEMATOCRIT 34.8 % (39.0-53.0); HEMOGLOBIN 11.4 g/dL (13.0-17.5); LYMPH # 0.6 x10^3/uL (1.0-4.8); LYMPH % 12 % (24-48); MEAN CORPUSCULAR HEMOGLOBIN 30 pg (25-35); MEAN CORPUSCULAR HGB CONC 33 g/dL (31-37); MEAN CORPUSCULAR VOLUME 92 fL (79-100); MONO # 0.4 x10^3/uL (0.0-1.1); MONO % 7 % (0-9); NEUT # 3.9 x10^3/uL (1.8-7.7); NEUT % 80 % (31-73); PLATELET COUNT 153 x10^3/uL (140-400); RED BLOOD COUNT 3.76 x10^6/uL (4.30-5.70); RED CELL DISTRIBUTION WIDTH 12.8 % (11.5-14.5); WHITE BLOOD COUNT 4.9 x10^3/uL (4.0-11.0)
[2021-07-22 02:49] LABS: CALCIUM 6.6 mg/dL (8.5-10.1); CREATININE 3.1 mg/dL (0.7-1.3); GFR 21.1; POTASSIUM 4.1 mmol/L (3.5-5.1)
[2021-07-22 03:23] VITALS: BP 119/61
[2021-07-22] MEDS: IV NORMAL SALINE 1000ML BAG 1,000 ML IV SCH ×2 (04:35→16:51)
[2021-07-22] MEDS: HEPARIN for SUB-Q USE 5,000 UNIT/ML VIAL. SQ SCH ×3 (05:57→21:07)
[2021-07-22] MEDS: PIPERACILLIN/TAZOBACTAM 2.25 GM in IV NORMAL SALINE 50ML 50 ML IV SCH ×3 (05:57→17:54)
[2021-07-22 07:00] VITALS: BP 147/72
[2021-07-22] MEDS: INSULIN LISPRO 300 UNITS/3 ML VIAL. SQ SCH ×7 (07:30→21:00)
[2021-07-22] MEDS: ZINC SULFATE 220 MG CAPSULE. PO SCH (08:23)
[2021-07-22] MEDS: DEXAMETHASONE SOD PHOS 4 MG/ML VIAL IVP SCH (08:24)
[2021-07-22] MEDS: ASCORBIC ACID 1,000 MG TABLET PO SCH (08:24)
[2021-07-22] MEDS: LOSARTAN POTASSIUM 50 MG TABLET. PO SCH (08:24)
[2021-07-22] MEDS: INSULIN GLARGINE SYRINGE. SQ SCH ×3 (08:58→21:07)
--- NOTE | 2021-07-22 10:27 | NUR ---
SW following. Discussed with RN, pt from home, 3L (does not use oxygen at home), ada diet, COVID-19 positive. RN advised no SW needs at this time. SW will continue to follow.
[2021-07-22 11:00] VITALS: BP 113/69
--- NOTE | 2021-07-22 11:43 | PDOC ---
[employer] PROGRESS NOTE Date of Service DOS: DATE: 07/22/21 TIME: 11:43 Chief Complaint Chief Complaint Shortness of breath, nausea, vomiting, diarrhea, Hypertension, Hyperlipidemia, Diabetes, Acute kidney injury, chronic renal insufficiency History of Present Illness History of Present Illness 07/22 Patient seen and examined Patient sitting comfortable in chair Discussed with RN Chart reviewed Patient Mr. Ramírez is a 56 year old male who was admitted from ER, with hypoxia. Per discussion with patient and chart review, at the time of his admission, he complained of 10 days of nausea, vomiting, diarrhea, shortness of breath with cough. He had eaten almost no food in 10 days leading up to admission and during that time he was not taking pain meds, but had pain, myalgias, and weakness, he tested positive for COVID-19 Previously had been on dialysis but improved. Vitals/I&O Vitals/I&O: Vital Signs Date Time Temp Pulse Resp B/P (MAP) Pulse Ox O2 Delivery O2 Flow Rate FiO2 07/22/21 08:24 83 147/72 07/22/21 08:00 Nasal Cannula 3.0 07/22/21 07:00 98.1 18 93 98.1 I & O0 07/21/21 07/21/21 07/22/21 15:00 23:00 07:00 Intake Total 260 ml Output Total 700 ml Balance 260 ml -700 ml Physical Exam General: Alert, Oriented X3, Cooperative, mild distress Heart: Regular rate, No murmurs Lungs: Clear Abdomen: Soft (mild tender, ) Extremities: No clubbing, Normal pulses Skin: No breakdown Labs Labs: Laboratory Tests Test 07/21/21 12:53 07/21/21 13:00 07/21/21 13:02 07/21/21 15:10 Influenza Type A Antigen Negative (NEGATIVE) Influenza Type B Antigen Negative (NEGATIVE) SARS-CoV-2 Antigen (Rapid) Positive (NEGATIVE) Acetone Level Neg (NEG) White Blood Count 3.8 x10^3/uL (4.0-11.0) Red Blood Count 4.12 x10^6/uL (4.30-5.70) Hemoglobin 12.6 g/dL (13.0-17.5) Hematocrit 38.1 % (39.0-53.0) Mean Corpuscular Volume 93 fL (79-100) Mean Corpuscular Hemoglobin 31 pg (25-35) Mean Corpuscular Hemoglobin Concent 33 g/dL (31-37) Red Cell Distribution Width 12.5 % (11.5-14.5) Platelet Count 158 x10^3/uL (140-400) Neutrophils (%) (Auto) 76 % (31-73) Lymphocytes (%) (Auto) 12 % (24-48) Monocytes (%) (Auto) 11 % (0-9) Eosinophils (%) (Auto) 0 % (0-3) Basophils (%) (Auto) 1 % (0-3) Neutrophils # (Auto) 2.9 x10^3/uL (1.8-7.7) Lymphocytes # (Auto) 0.5 x10^3/uL (1.0-4.8) Monocytes # (Auto) 0.4 x10^3/uL (0.0-1.1) Eosinophils # (Auto) 0.0 x10^3/uL (0.0-0.7) Basophils # (Auto) 0.0 x10^3/uL (0.0-0.2) Sodium Level 131 mmol/L (136-145) Potassium Level 4.8 mmol/L (3.5-5.1) Chloride Level 97 mmol/L (98-107) Carbon Dioxide Level 21 mmol/L (21-32) Anion Gap 13 (6-14) Blood Urea Nitrogen 67 mg/dL (8-26) Creatinine 3.6 mg/dL (0.7-1.3) Estimated GFR (Cockcroft-Gault) 17.8 BUN/Creatinine Ratio 19 (6-20) Glucose Level 426 mg/dL (70-99) Lactic Acid Level 1.7 mmol/L (0.4-2.0) Calcium Level 7.0 mg/dL (8.5-10.1) Total Bilirubin 0.4 mg/dL (0.2-1.0) Aspartate Amino Transf (AST/SGOT) 38 U/L (15-37) Alanine Aminotransferase (ALT/SGPT) 45 U/L (16-63) Alkaline Phosphatase 129 U/L (46-116) Troponin I High Sensitivity 19 ng/L (4-75) Total Protein 7.6 g/dL (6.4-8.2) Albumin 3.0 g/dL (3.4-5.0) Albumin/Globulin Ratio 0.7 (1.0-1.7) Lipase 48 U/L (73-393) O2 Saturation 93 % (92-99) Arterial Blood pH 7.35 (7.35-7.45) Arterial Blood pCO2 at Patient Temp 30 mmHg (35-46) Arterial Blood pO2 at Patient Temp 72 mmHg (75-108) Arterial Blood HCO3 16 mmol/L (21-28) Arterial Blood Base Excess -9 mmol/L (-3-3) FiO2 3l nc Test 07/21/21 16:53 07/21/21 19:35 07/22/21 01:30 07/22/21 08:05 Glucose (Fingerstick) 353 mg/dL (70-99) 312 mg/dL (70-99) 139 mg/dL (70-99) White Blood Count 4.9 x10^3/uL (4.0-11.0) Red Blood Count 3.76 x10^6/uL (4.30-5.70) Hemoglobin 11.4 g/dL (13.0-17.5) Hematocrit 34.8 % (39.0-53.0) Mean Corpuscular Volume 92 fL (79-100) Mean Corpuscular Hemoglobin 30 pg (25-35) Mean Corpuscular Hemoglobin Concent 33 g/dL (31-37) Red Cell Distribution Width 12.8 % (11.5-14.5) Platelet Count 153 x10^3/uL (140-400) Neutrophils (%) (Auto) 80 % (31-73) Lymphocytes (%) (Auto) 12 % (24-48) Monocytes (%) (Auto) 7 % (0-9) Eosinophils (%) (Auto) 0 % (0-3) Basophils (%) (Auto) 1 % (0-3) Neutrophils # (Auto) 3.9 x10^3/uL (1.8-7.7) Lymphocytes # (Auto) 0.6 x10^3/uL (1.0-4.8) Monocytes # (Auto) 0.4 x10^3/uL (0.0-1.1) Eosinophils # (Auto) 0.0 x10^3/uL (0.0-0.7) Basophils # (Auto) 0.0 x10^3/uL (0.0-0.2) Sodium Level 142 mmol/L (136-145) Potassium Level 4.1 mmol/L (3.5-5.1) Chloride Level 106 mmol/L (98-107) Carbon Dioxide Level 23 mmol/L (21-32) Anion Gap 13 (6-14) Blood Urea Nitrogen 60 mg/dL (8-26) Creatinine 3.1 mg/dL (0.7-1.3) Estimated GFR (Cockcroft-Gault) 21.1 Glucose Level 105 mg/dL (70-99) Calcium Level 6.6 mg/dL (8.5-10.1) Review of Systems Review of Systems: Denies change in vision, change in hearing, change in bowel pattern, change in bladder pattern. Affirms cough and chest congestion. Assessment and Plan Assessmemt and Plan Problems Medical Problems: (1) SARAH (acute kidney injury) Status: Acute (2) Pneumonia due to COVID-19 virus Status: Acute ASSESSMENT Covid-19 Pneumonia Shortness of breath Hypertension Hyperlipidemia Diabetes Acute kidney injury chronic renal insufficiency PLAN continue current antibiotic and steroid management Patient on 3L oxygen DVT prophylaxis Home meds Trend labs Continue current diabetes management Hope to discharge soon Comment Review of Relevant I have reviewed the following items mindy (where applicable) has been applied. Medications: Current Medications Medications (Trade) Dose Ordered Sig/Ismael Route PRN Reason Start Time Stop Time Status Last Admin Dose Admin Sodium Chloride 1,000 ml @ 1,000 mls/hr Q1H IV 07/21/21 12:45 07/21/21 13:44 DC 07/21/21 13:04 Fentanyl Citrate (Fentanyl 2ml Vial) 25 mcg 1X ONCE IVP 07/21/21 12:45 07/21/21 12:46 DC 07/21/21 13:08 Ondansetron HCl (Zofran) 4 mg 1X ONCE IVP 07/21/21 12:45 07/21/21 12:46 DC 07/21/21 13:02 Famotidine (Pepcid Vial) 20 mg 1X ONCE IVP 07/21/21 12:45 07/21/21 12:46 DC 07/21/21 13:04 Piperacillin Sod/ Tazobactam Sod 2.25 gm/Sodium Chloride 50 ml @ 100 mls/hr 1X ONCE IV 07/21/21 14:00 07/21/21 14:29 DC 07/21/21 14:20 Insulin Human Regular (HumuLIN R VIAL) 5 unit 1X ONCE IV 07/21/21 14:00 07/21/21 14:01 DC 07/21/21 14:30 Influenza Virus Vaccine Quadrival (Flulaval Quad Syringe) 0.5 ml ONCE ONCE VAX IM 07/21/21 18:00 07/21/21 18:01 DC 07/21/21 17:06 Losartan Potassium (Cozaar) 100 mg DAILY PO 07/21/21 18:00 07/22/21 08:24 Atorvastatin Calcium (Lipitor) 10 mg QHS PO 07/21/21 21:00 07/21/21 22:12 Insulin Human Lispro (HumaLOG) 30 units TIDWMEALS SQ 07/21/21 18:00 07/22/21 08:57 Insulin Human Lispro (HumaLOG) 0-9 UNITS QIDACHS SQ 07/21/21 21:00 07/21/21 22:15 Insulin Glargine (Lantus Syringe) 40 unit BID SQ 07/21/21 21:00 07/22/21 08:58 Dexamethasone Sodium Phosphate (Decadron) 6 mg DAILY IVP 07/21/21 17:45 07/22/21 08:24 Ascorbic Acid (Vitamin C) 1,000 mg DAILY PO 07/21/21 18:00 07/22/21 08:24 Zinc Sulfate (Orazinc) 220 mg DAILY PO 07/21/21 18:00 07/22/21 08:23 Sodium Chloride 1,000 ml @ 100 mls/hr Q10H IV 07/21/21 18:00 07/22/21 04:35 Piperacillin Sod/ Tazobactam Sod 2.25 gm/Sodium Chloride 50 ml @ 100 mls/hr Q6HRS IV 07/21/21 19:00 07/22/21 05:57 Heparin Sodium (Porcine) (Heparin Sodium) 5,000 unit Q8HRS SQ 07/21/21 22:00 07/22/21 05:57 Justifications for Admission Other Justification MONIQUE SIERRA III DO Jul 22, 2021 11:43
[2021-07-22 15:00] VITALS: BP 107/61
--- NOTE | 2021-07-22 15:29 | NUR ---
Assumed patient care at 1330- patient A&O x 3, no distress on 3L of O2 per NC, lungs sounds diminished, IV patent with IV NS infusing at 100. Patient resting in bed. Will continue to monitor.
[2021-07-22 19:00] VITALS: BP 113/59
[2021-07-22] MEDS: ATORVASTATIN CALCIUM 10 MG TABLET. PO SCH (21:05)
[2021-07-22 23:00] VITALS: BP 101/69
[2021-07-23] MEDS: IV NORMAL SALINE 1000ML BAG 1,000 ML IV SCH ×3 (00:51→20:00)
[2021-07-23] MEDS: PIPERACILLIN/TAZOBACTAM 2.25 GM in IV NORMAL SALINE 50ML 50 ML IV SCH ×4 (00:52→17:30)
[2021-07-23 03:30] VITALS: BP 117/69
[2021-07-23] MEDS: HEPARIN for SUB-Q USE 5,000 UNIT/ML VIAL. SQ SCH ×3 (06:27→21:18)
[2021-07-23 07:00] VITALS: BP 124/70
[2021-07-23 07:30] LABS: CALCIUM 6.6 mg/dL (8.5-10.1); CREATININE 2.8 mg/dL (0.7-1.3); GFR 23.7; POTASSIUM 4.6 mmol/L (3.5-5.1)
[2021-07-23] MEDS: INSULIN LISPRO 300 UNITS/3 ML VIAL. SQ SCH ×7 (07:30→20:21)
[2021-07-23 07:39] LABS: BASO % 0 % (0-3); EOS % 0 % (0-3); HEMATOCRIT 31.9 % (39.0-53.0); HEMOGLOBIN 10.9 g/dL (13.0-17.5); LYMPH # 0.4 x10^3/uL (1.0-4.8); LYMPH % 12 % (24-48); MEAN CORPUSCULAR HEMOGLOBIN 31 pg (25-35); MEAN CORPUSCULAR HGB CONC 34 g/dL (31-37); MEAN CORPUSCULAR VOLUME 91 fL (79-100); MONO # 0.4 x10^3/uL (0.0-1.1); MONO % 11 % (0-9); NEUT # 2.8 x10^3/uL (1.8-7.7); NEUT % 77 % (31-73); PLATELET COUNT 128 x10^3/uL (140-400); RED BLOOD COUNT 3.51 x10^6/uL (4.30-5.70); RED CELL DISTRIBUTION WIDTH 12.8 % (11.5-14.5); WHITE BLOOD COUNT 3.7 x10^3/uL (4.0-11.0)
[2021-07-23] MEDS: ZINC SULFATE 220 MG CAPSULE. PO SCH (08:30)
[2021-07-23] MEDS: ASCORBIC ACID 1,000 MG TABLET PO SCH (08:31)
[2021-07-23] MEDS: DEXAMETHASONE SOD PHOS 4 MG/ML VIAL IVP SCH (08:31)
[2021-07-23] MEDS: LOSARTAN POTASSIUM 50 MG TABLET. PO SCH (08:31)
[2021-07-23] MEDS: INSULIN GLARGINE SYRINGE. SQ SCH ×2 (10:30→21:00)
[2021-07-23 10:58] VITALS: BP 140/74
--- NOTE | 2021-07-23 12:16 | PDOC ---
[employer] PROGRESS NOTE Date of Service DOS: DATE: 07/23/21 TIME: 12:13 Chief Complaint Chief Complaint Shortness of breath, nausea, vomiting, diarrhea, Hypertension, Hyperlipidemia, Diabetes, Acute kidney injury, chronic renal insufficiency History of Present Illness History of Present Illness 07/23 Patient seen and examined Chart reviewed Discussed with RN Patient affirms cough and requests cough medicine Patient sitting comfortably in chair and is in no apparent distress 07/22 Patient seen and examined Patient sitting comfortable in chair Discussed with RN Chart reviewed Mr. Ramírez is a 56 year old male who was admitted from ER, with hypoxia. Per discussion with patient and chart review, at the time of his admission, he complained of 10 days of nausea, vomiting, diarrhea, shortness of breath with cough. He had eaten almost no food in 10 days leading up to admission and during that time he was not taking pain meds, but had pain, myalgias, and weakness, he tested positive for COVID-19 Previously had been on dialysis but improved. Vitals/I&O Vitals/I&O: Vital Signs Date Time Temp Pulse Resp B/P (MAP) Pulse Ox O2 Delivery O2 Flow Rate FiO2 07/23/21 10:58 97.3 70 20 140/74 (96) 95 Nasal Cannula 3.0 97.3 I & O 07/22/21 07/22/21 07/23/21 15:00 23:00 07:00 Intake Total 310 ml 1425 ml 640 ml Output Total 200 ml Balance 110 ml 1425 ml 640 ml Physical Exam General: Alert, Oriented X3, Cooperative, mild distress Heart: Regular rate, No murmurs Lungs: Clear Abdomen: Soft (mild tender, ) Extremities: No clubbing, Normal pulses Skin: No breakdown Labs Labs: Laboratory Tests Test 07/22/21 16:06 07/22/21 21:13 07/23/21 06:50 07/23/21 07:54 Glucose (Fingerstick) 81 mg/dL (70-99) 96 mg/dL (70-99) 141 mg/dL (70-99) White Blood Count 3.7 x10^3/uL (4.0-11.0) Red Blood Count 3.51 x10^6/uL (4.30-5.70) Hemoglobin 10.9 g/dL (13.0-17.5) Hematocrit 31.9 % (39.0-53.0) Mean Corpuscular Volume 91 fL (79-100) Mean Corpuscular Hemoglobin 31 pg (25-35) Mean Corpuscular Hemoglobin Concent 34 g/dL (31-37) Red Cell Distribution Width 12.8 % (11.5-14.5) Platelet Count 128 x10^3/uL (140-400) Neutrophils (%) (Auto) 77 % (31-73) Lymphocytes (%) (Auto) 12 % (24-48) Monocytes (%) (Auto) 11 % (0-9) Eosinophils (%) (Auto) 0 % (0-3) Basophils (%) (Auto) 0 % (0-3) Neutrophils # (Auto) 2.8 x10^3/uL (1.8-7.7) Lymphocytes # (Auto) 0.4 x10^3/uL (1.0-4.8) Monocytes # (Auto) 0.4 x10^3/uL (0.0-1.1) Eosinophils # (Auto) 0.0 x10^3/uL (0.0-0.7) Basophils # (Auto) 0.0 x10^3/uL (0.0-0.2) Sodium Level 142 mmol/L (136-145) Potassium Level 4.6 mmol/L (3.5-5.1) Chloride Level 109 mmol/L (98-107) Carbon Dioxide Level 22 mmol/L (21-32) Anion Gap 11 (6-14) Blood Urea Nitrogen 46 mg/dL (8-26) Creatinine 2.8 mg/dL (0.7-1.3) Estimated GFR (Cockcroft-Gault) 23.7 Glucose Level 136 mg/dL (70-99) Calcium Level 6.6 mg/dL (8.5-10.1) Test 07/23/21 11:30 Glucose (Fingerstick) 148 mg/dL (70-99) Review of Systems Review of Systems: Denies abdominal pain, change in vision, change in hearing, chills, fever. Affirms cough and chest congestion. Assessment and Plan Assessmemt and Plan Problems Medical Problems: (1) SARAH (acute kidney injury) Status: Acute (2) Pneumonia due to COVID-19 virus Status: Acute ASSESSMENT Covid-19 Pneumonia Shortness of breath Hypertension Hyperlipidemia Diabetes Acute kidney injury chronic renal insufficiency PLAN continue current antibiotic and steroid management Patient on 3L oxygen DVT prophylaxis Home meds Trend labs Continue current diabetes management Hope to discharge soon Comment Review of Relevant I have reviewed the following items mindy (where applicable) has been applied. Justifications for Admission Other Justification MONIQUE SIERRA III DO Jul 23, 2021 12:16
[2021-07-23 14:53] VITALS: BP_SYST 114; BP_SYST 163; BP_DIAS 62; BP_DIAS 87
[2021-07-23] MEDS: guaiFENesin/CODEINE 100mg/10mg 5 ML LIQUID PO PRN (15:28)
[2021-07-23] MEDS: CALCIUM CARBONATE 500 MG TAB.CHEW PO SCH (17:30)
--- NOTE | 2021-07-23 18:15 | CONS ---
DATE OF CONSULTATION: 07/23/2021 REQUESTING PHYSICIAN: Hospitalist. REASON FOR CONSULTATION: Renal failure. HISTORY OF PRESENT ILLNESS: This is a 56-year-old gentleman with history of hypertension, hyperlipidemia, and possibly chronic kidney disease. The patient presented to the hospital with nausea, vomiting, diarrhea, increasing shortness of breath as well as cough for over 10 days' duration. He was found to be hypoxemic. He was also found to be COVID-19 positive, being evaluated and managed for the same. In this setting, his renal function is noted to be altered and as such, Nephrology evaluation requested. The patient's BUN currently 46, creatinine 2.8, GFR is 23.7. Baseline is unknown. PAST MEDICAL HISTORY: Hypertension, hyperlipidemia, diabetes mellitus, possible chronic kidney disease. ALLERGIES: None. MEDICATIONS: Reviewed per medication list. FAMILY HISTORY: Noncontributory. SOCIAL HISTORY: The patient resides with assistance from family. REVIEW OF SYSTEMS: Other than above per HPI, is unremarkable. PHYSICAL EXAMINATION: Due to COVID-19 positive status, bedside examination not pursued. LABORATORY DATA: Sodium 142, potassium 4.6, chloride 109, CO2 of 22, BUN 46, creatinine 2.8, GFR 23.7, calcium 6.6. Hemoglobin 10.9, hematocrit 31.9, white count 3.7 and platelets are 128. IMPRESSION: 1. Renal failure -- acute versus chronic and/or acute and chronic -- currently in the setting of acute COVID-19 pneumonitis. 2. Hypertension. 3. Diabetes mellitus. 4. Hypocalcemia. RECOMMENDATIONS: 1. Treatment of COVID-19 infection, pneumonitis. 2. Maintain fluid balance. 3. Calcium supplementation. We will follow. JUAN LUIS DR: April TID: [id number]
[2021-07-23 19:28] VITALS: BP 142/72
[2021-07-23] MEDS: ATORVASTATIN CALCIUM 10 MG TABLET. PO SCH (21:14)
[2021-07-23 22:40] VITALS: BP 158/69
[2021-07-24] MEDS: guaiFENesin/CODEINE 100mg/10mg 5 ML LIQUID PO PRN ×3 (01:21→20:29)
[2021-07-24 03:07] VITALS: BP 134/75
[2021-07-24] MEDS: HEPARIN for SUB-Q USE 5,000 UNIT/ML VIAL. SQ SCH ×3 (05:49→20:35)
[2021-07-24] MEDS: PIPERACILLIN/TAZOBACTAM 2.25 GM in IV NORMAL SALINE 50ML 50 ML IV SCH ×4 (05:50→17:34)
--- NOTE | 2021-07-24 05:56 | NUR ---
Patient has been on 15L NC and 15L Venti-mask for 24 hours. O2 Sats were consistently in the low to mid nineties until early this morning. O2 sats now from 84% to 88%. 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 Bi-pap would be our first option. Spoke with RT who advised to call back if patient consistently at 80% and Bi-pap would be applied.
[2021-07-24] MEDS: IV NORMAL SALINE 1000ML BAG 1,000 ML IV SCH ×2 (06:00→17:06)
[2021-07-24 06:10] LABS: CALCIUM 6.7 mg/dL (8.5-10.1); CREATININE 2.3 mg/dL (0.7-1.3); GFR 29.8; POTASSIUM 4.7 mmol/L (3.5-5.1)
[2021-07-24 06:33] LABS: BASO % 0 % (0-3); EOS % 0 % (0-3); HEMATOCRIT 32.4 % (39.0-53.0); HEMOGLOBIN 11.2 g/dL (13.0-17.5); LYMPH # 0.4 x10^3/uL (1.0-4.8); LYMPH % 9 % (24-48); MEAN CORPUSCULAR HEMOGLOBIN 32 pg (25-35); MEAN CORPUSCULAR HGB CONC 35 g/dL (31-37); MEAN CORPUSCULAR VOLUME 92 fL (79-100); MONO # 0.5 x10^3/uL (0.0-1.1); MONO % 11 % (0-9); NEUT # 3.6 x10^3/uL (1.8-7.7); NEUT % 81 % (31-73); PLATELET COUNT 141 x10^3/uL (140-400); RED BLOOD COUNT 3.51 x10^6/uL (4.30-5.70); WHITE BLOOD COUNT 4.5 x10^3/uL (4.0-11.0)
[2021-07-24 07:00] VITALS: BP 143/76
[2021-07-24] MEDS: INSULIN LISPRO 300 UNITS/3 ML VIAL. SQ SCH ×7 (07:30→21:00)
[2021-07-24] MEDS: DEXAMETHASONE SOD PHOS 4 MG/ML VIAL IVP SCH (08:33)
[2021-07-24] MEDS: ASCORBIC ACID 1,000 MG TABLET PO SCH (08:33)
[2021-07-24] MEDS: ZINC SULFATE 220 MG CAPSULE. PO SCH (08:33)
[2021-07-24] MEDS: LOSARTAN POTASSIUM 50 MG TABLET. PO SCH (08:33)
[2021-07-24] MEDS: CALCIUM CARBONATE 500 MG TAB.CHEW PO SCH ×3 (08:33→17:35)
[2021-07-24] MEDS: INSULIN GLARGINE SYRINGE. SQ SCH ×2 (08:34→21:00)
[2021-07-24 11:00] VITALS: BP 199/90
[2021-07-24] MEDS: PROCHLORPERAZINE 10 MG/2 ML VIAL. IV PRN ×2 (12:19→20:29)
--- NOTE | 2021-07-24 12:47 | PDOC ---
[facility] PROGRESS NOTE Date of Service DOS: DATE: 07/24/21 TIME: 12:40 Chief Complaint Chief Complaint Shortness of breath, nausea, vomiting, diarrhea, Hypertension, Hyperlipidemia, Diabetes, Acute kidney injury, chronic renal insufficiency History of Present Illness History of Present Illness 07/24 Patient seen and examined Discussed with RN Chart reviewed Patient sitting in bed comfortably Patient complained of nausea earlier in the day Patient feels cough and chest congestion is improved from earlier 07/23 Patient seen and examined Chart reviewed Discussed with RN Patient affirms cough and requests cough medicine Patient sitting comfortably in chair and is in no apparent distress 07/22 Patient seen and examined Patient sitting comfortable in chair Discussed with RN Chart reviewed Mr. Ramírez is a 56 year old male who was admitted from ER, with hypoxia. Per discussion with patient and chart review, at the time of his admission, he complained of 10 days of nausea, vomiting, diarrhea, shortness of breath with cough. He had eaten almost no food in 10 days leading up to admission and during that time he was not taking pain meds, but had pain, myalgias, and weakness, he tested positive for COVID-19 Previously had been on dialysis but improved. Vitals/I&O Vitals/I&O: Vital Signs Date Time Temp Pulse Resp B/P (MAP) Pulse Ox O2 Delivery O2 Flow Rate FiO2 07/24/21 11:00 97.8 72 18 199/90 (126) 96 Nasal Cannula 3.0 97.8 I & O 07/23/21 07/23/21 07/24/21 15:00 23:00 07:00 Intake Total 1050 ml 290 ml 0 ml Output Total 1050 ml 950 ml Balance 0 ml -660 ml 0 ml Physical Exam General: Alert, Oriented X3, Cooperative, mild distress Heart: Regular rate, No murmurs Lungs: Clear Abdomen: Soft (mild tender, ) Extremities: No clubbing, Normal pulses Skin: No breakdown Labs Labs: Laboratory Tests Test 07/23/21 16:40 07/23/21 20:15 07/24/21 04:10 07/24/21 07:32 Glucose (Fingerstick) 113 mg/dL (70-99) 138 mg/dL (70-99) 145 mg/dL (70-99) White Blood Count 4.5 x10^3/uL (4.0-11.0) Red Blood Count 3.51 x10^6/uL (4.30-5.70) Hemoglobin 11.2 g/dL (13.0-17.5) Hematocrit 32.4 % (39.0-53.0) Mean Corpuscular Volume 92 fL (79-100) Mean Corpuscular Hemoglobin 32 pg (25-35) Mean Corpuscular Hemoglobin Concent 35 g/dL (31-37) Red Cell Distribution Width 13.0 % (11.5-14.5) Platelet Count 141 x10^3/uL (140-400) Neutrophils (%) (Auto) 81 % (31-73) Lymphocytes (%) (Auto) 9 % (24-48) Monocytes (%) (Auto) 11 % (0-9) Eosinophils (%) (Auto) 0 % (0-3) Basophils (%) (Auto) 0 % (0-3) Neutrophils # (Auto) 3.6 x10^3/uL (1.8-7.7) Lymphocytes # (Auto) 0.4 x10^3/uL (1.0-4.8) Monocytes # (Auto) 0.5 x10^3/uL (0.0-1.1) Eosinophils # (Auto) 0.0 x10^3/uL (0.0-0.7) Basophils # (Auto) 0.0 x10^3/uL (0.0-0.2) Sodium Level 144 mmol/L (136-145) Potassium Level 4.7 mmol/L (3.5-5.1) Chloride Level 111 mmol/L (98-107) Carbon Dioxide Level 21 mmol/L (21-32) Anion Gap 12 (6-14) Blood Urea Nitrogen 36 mg/dL (8-26) Creatinine 2.3 mg/dL (0.7-1.3) Estimated GFR (Cockcroft-Gault) 29.8 Glucose Level 129 mg/dL (70-99) Calcium Level 6.7 mg/dL (8.5-10.1) Test 07/24/21 11:59 Glucose (Fingerstick) 108 mg/dL (70-99) Review of Systems Review of Systems: Affirmed nausea, chest congestion, and shortness of air. Denied fever, abdominal pain, and changes in bowel or bladder patterns. Assessment and Plan Assessmemt and Plan Problems Medical Problems: (1) SARAH (acute kidney injury) Status: Acute (2) Pneumonia due to COVID-19 virus Status: Acute ASSESSMENT Covid-19 Pneumonia Shortness of breath Hypertension Hyperlipidemia Diabetes Nausea Acute kidney injury chronic renal insufficiency PLAN Continue current antibiotic and steroid management Compazine 10 milligrams every six hours IV as needed for nausea/vomiting DVT prophylaxis Home meds Trend labs Continue current diabetes management Hope to discharge soon Comment Review of Relevant I have reviewed the following items mindy (where applicable) has been applied. Medications: Current Medications Medications (Trade) Dose Ordered Sig/Ismael Route PRN Reason Start Time Stop Time Status Last Admin Dose Admin Calcium Carbonate/ Glycine (Tums) 1,000 mg TIDWMEALS PO 07/23/21 17:00 07/24/21 08:33 Prochlorperazine Edisylate (Compazine) 10 mg PRN Q6HRS PRN IV NAUSEA/VOMITING 07/24/21 12:15 07/24/21 12:19 Justifications for Admission Other Justification MONIQUE SIERRA III DO Jul 24, 2021 12:47
[2021-07-24 15:00] VITALS: BP 114/89
[2021-07-24 19:00] VITALS: BP 174/86
[2021-07-24] MEDS: ATORVASTATIN CALCIUM 10 MG TABLET. PO SCH (20:29)
[2021-07-24 23:00] VITALS: BP 157/81
[2021-07-25] MEDS: IV NORMAL SALINE 1000ML BAG 1,000 ML IV SCH ×3 (02:00→23:31)
[2021-07-25 03:15] VITALS: BP 188/91
[2021-07-25] MEDS: HEPARIN for SUB-Q USE 5,000 UNIT/ML VIAL. SQ SCH ×3 (05:10→21:30)
[2021-07-25] MEDS: PIPERACILLIN/TAZOBACTAM 2.25 GM in IV NORMAL SALINE 50ML 50 ML IV SCH ×2 (05:10)
[2021-07-25 07:00] VITALS: BP 159/89
[2021-07-25] MEDS: INSULIN LISPRO 300 UNITS/3 ML VIAL. SQ SCH ×8 (07:30→21:00)
[2021-07-25 07:58] LABS: BASO % 0 % (0-3); EOS % 0 % (0-3); HEMATOCRIT 36.3 % (39.0-53.0); HEMOGLOBIN 12.1 g/dL (13.0-17.5); LYMPH # 0.5 x10^3/uL (1.0-4.8); LYMPH % 7 % (24-48); MEAN CORPUSCULAR HEMOGLOBIN 31 pg (25-35); MEAN CORPUSCULAR HGB CONC 33 g/dL (31-37); MEAN CORPUSCULAR VOLUME 92 fL (79-100); MONO # 0.9 x10^3/uL (0.0-1.1); MONO % 12 % (0-9); NEUT # 6.1 x10^3/uL (1.8-7.7); NEUT % 81 % (31-73); PLATELET COUNT 191 x10^3/uL (140-400); RED BLOOD COUNT 3.94 x10^6/uL (4.30-5.70); RED CELL DISTRIBUTION WIDTH 13.1 % (11.5-14.5); WHITE BLOOD COUNT 7.5 x10^3/uL (4.0-11.0)
[2021-07-25] MEDS: CALCIUM CARBONATE 500 MG TAB.CHEW PO SCH ×3 (08:00→17:43)
[2021-07-25] MEDS: LOSARTAN POTASSIUM 50 MG TABLET. PO SCH (08:17)
[2021-07-25] MEDS: ASCORBIC ACID 1,000 MG TABLET PO SCH (08:17)
[2021-07-25] MEDS: ZINC SULFATE 220 MG CAPSULE. PO SCH (08:17)
[2021-07-25] MEDS: DEXAMETHASONE SOD PHOS 4 MG/ML VIAL IVP SCH (08:19)
[2021-07-25] MEDS: PROCHLORPERAZINE 10 MG/2 ML VIAL. IV PRN ×2 (08:24→23:35)
[2021-07-25] MEDS: INSULIN GLARGINE SYRINGE. SQ SCH ×2 (09:57→21:00)
[2021-07-25 10:05] LABS: ALBUMIN 2.4 g/dL (3.4-5.0); ALBUMIN/GLOBULIN RATIO 0.6 (1.0-1.7); CALCIUM 7.2 mg/dL (8.5-10.1); CREATININE 2.1 mg/dL (0.7-1.3); GFR 33.1; TOTAL BILIRUBIN 0.4 mg/dL (0.2-1.0); TOTAL PROTEIN 6.2 g/dL (6.4-8.2)
--- NOTE | 2021-07-25 10:23 | NUR ---
SW following. Discussed with RN, pt from home, 3L (does not use oxygen at home), COVID-19 positive. Pt very nauseated today, not eating. Dr. Torres not comfortable discharging pt yet. SW will continue to follow.
[2021-07-25 10:24] LABS: POTASSIUM 4.1 mmol/L (3.5-5.1)
[2021-07-25 11:00] VITALS: BP 165/82
--- NOTE | 2021-07-25 11:36 | PDOC ---
DATE OF SERVICE DATE: 07/25/21 TIME: 11:23 SUBJECTIVE ROS Mild Nausea , Vomiting earlier today Currently states feeling better OBJECTIVE Vital Signs Vital Signs Date Time Temp Pulse Resp B/P (MAP) Pulse Ox O2 Delivery O2 Flow Rate FiO2 07/25/21 08:17 71 159/89 07/25/21 08:00 Nasal Cannula 3.0 07/25/21 07:00 97.0 17 98 97.0 I & 0 Intake and Output 07/25/21 06:59 Intake Total 1040 ml Output Total 250 ml Balance 790 ml Intake Oral 940 ml IV Total 100 ml Output Urine Total 250 ml PHYSICAL EXAM Physical Exam General: Alert, Oriented X3, Cooperative,NAD HEENT: Atraumatic, OM moist Lungs: Clear to auscultation, decreased at bases Heart: S1S2, no murmurs, Abdomen: Soft Extremities: No edema Skin: No breakdown, no rash Neuro: Normal speech, Normal tone, Sensation intact Psych/Mental Status: Mental status NL, Mood NL No [place] DIAGNOSIS/ASSESSMENT Assessment & Plan SARAH - Creat trending down , Non Oliguric . Supportive care , avoid nephrotoxins , maintain fluid balance and hydration CKD stage 3 - Hx of SARAH/ATN in 2019 -was on HD since Feb 2019, came off Apr 2019 with eGFR cw CKD 3 . Follows with me as OP. Will review records Hypocalcemia- Ca Improved, today 8.5 after correcting for low Albumin . Continue TUMS. No indication for IV Ca replacement currently COVID-19 infection, pneumonitis.O2 Requirements improved Anemia- No indication of BRAD HTN - stable DM II- per primary COMMENT/RELEVANT DATA Meds Current Medications Medications (Trade) Dose Ordered Sig/Ismael Start Time Stop Time Status Last Admin Dose Admin Acetaminophen (Tylenol) 650 mg PRN Q4HRS PRN 07/21/21 14:30 07/22/21 14:29 DC Ascorbic Acid (Vitamin C) 1,000 mg DAILY 07/21/21 18:00 07/25/21 08:17 1,000 MG Atorvastatin Calcium (Lipitor) 10 mg QHS 07/21/21 21:00 07/24/21 20:29 10 MG Calcium Carbonate/ Glycine (Tums) 1,000 mg TIDWMEALS 07/23/21 17:00 07/24/21 17:35 1,000 MG Dexamethasone Sodium Phosphate (Decadron) 6 mg DAILY 07/21/21 17:45 07/25/21 08:19 6 MG Dextrose (Dextrose 50%-Water Syringe) 12.5 gm PRN Q15MIN PRN 07/21/21 17:45 Famotidine (Pepcid Vial) 20 mg 1X ONCE 07/21/21 12:45 07/21/21 12:46 DC 07/21/21 13:04 20 MG Fentanyl Citrate (Fentanyl 2ml Vial) 25 mcg 1X ONCE 07/21/21 12:45 07/21/21 12:46 DC 07/21/21 13:08 25 MCG Guaifenesin/ Codeine Phosphate (Robitussin Ac) 5 ml PRN Q6HRS PRN 07/23/21 12:15 07/24/21 20:29 5 ML Heparin Sodium (Porcine) (Heparin Sodium) 5,000 unit Q8HRS 07/21/21 22:00 07/25/21 05:10 5,000 UNIT Influenza Virus Vaccine Quadrival (Flulaval Quad [id number] Syringe) 0.5 ml ONCE ONCE 07/21/21 18:00 07/21/21 18:01 DC 07/21/21 17:06 0.5 ML Insulin Glargine (Lantus Syringe) 40 unit BID 07/21/21 21:00 07/25/21 09:57 40 UNIT Insulin Human Lispro (HumaLOG) 0-9 UNITS QIDACHS 07/21/21 21:00 07/21/21 22:15 5 UNITS Insulin Human Regular (HumuLIN R VIAL) 5 unit 1X ONCE 07/21/21 14:00 07/21/21 14:01 DC 07/21/21 14:30 5 UNIT Lactobacillus Rhamnosus (Culturelle) 1 cap BID 07/25/21 21:00 Losartan Potassium (Cozaar) 100 mg DAILY 07/21/21 18:00 07/25/21 08:17 100 MG Ondansetron HCl (Zofran) 4 mg PRN Q8HRS PRN 07/21/21 14:30 07/22/21 14:29 DC Piperacillin Sod/ Tazobactam Sod (Zosyn Per Pharmacy) 1 each PRN DAILY PRN 07/21/21 17:45 Piperacillin Sod/ Tazobactam Sod 2.25 gm/Sodium Chloride 50 ml @ 100 mls/hr Q6HRS 07/21/21 19:00 07/25/21 11:01 DC 07/25/21 05:10 100 MLS/HR Piperacillin Sod/ Tazobactam Sod 3.375 gm/Sodium Chloride 50 ml @ 100 mls/hr Q6HRS 07/25/21 12:00 Prochlorperazine Edisylate (Compazine) 10 mg PRN Q6HRS PRN 07/24/21 12:15 07/25/21 08:24 10 MG Sodium Chloride 1,000 ml @ 100 mls/hr Q10H 07/21/21 18:00 07/25/21 02:00 100 MLS/HR Zinc Sulfate (Orazinc) 220 mg DAILY 07/21/21 18:00 07/25/21 08:17 220 MG Lab Laboratory Tests Test 07/24/21 11:59 07/24/21 16:52 07/24/21 20:06 07/25/21 06:15 Glucose (Fingerstick) 108 mg/dL (70-99) 110 mg/dL (70-99) 109 mg/dL (70-99) White Blood Count 7.5 x10^3/uL (4.0-11.0) Red Blood Count 3.94 x10^6/uL (4.30-5.70) Hemoglobin 12.1 g/dL (13.0-17.5) Hematocrit 36.3 % (39.0-53.0) Mean Corpuscular Volume 92 fL (79-100) Mean Corpuscular Hemoglobin 31 pg (25-35) Mean Corpuscular Hemoglobin Concent 33 g/dL (31-37) Red Cell Distribution Width 13.1 % (11.5-14.5) Platelet Count 191 x10^3/uL (140-400) Neutrophils (%) (Auto) 81 % (31-73) Lymphocytes (%) (Auto) 7 % (24-48) Monocytes (%) (Auto) 12 % (0-9) Eosinophils (%) (Auto) 0 % (0-3) Basophils (%) (Auto) 0 % (0-3) Neutrophils # (Auto) 6.1 x10^3/uL (1.8-7.7) Lymphocytes # (Auto) 0.5 x10^3/uL (1.0-4.8) Monocytes # (Auto) 0.9 x10^3/uL (0.0-1.1) Eosinophils # (Auto) 0.0 x10^3/uL (0.0-0.7) Basophils # (Auto) 0.0 x10^3/uL (0.0-0.2) Sodium Level 143 mmol/L (136-145) Potassium Level 4.1 mmol/L (3.5-5.1) Chloride Level 109 mmol/L (98-107) Carbon Dioxide Level 22 mmol/L (21-32) Anion Gap 12 (6-14) Blood Urea Nitrogen 32 mg/dL (8-26) Creatinine 2.1 mg/dL (0.7-1.3) Estimated GFR (Cockcroft-Gault) 33.1 BUN/Creatinine Ratio 15 (6-20) Glucose Level 102 mg/dL (70-99) Calcium Level 7.2 mg/dL (8.5-10.1) Total Bilirubin 0.4 mg/dL (0.2-1.0) Aspartate Amino Transf (AST/SGOT) 36 U/L (15-37) Alanine Aminotransferase (ALT/SGPT) 49 U/L (16-63) Alkaline Phosphatase 78 U/L (46-116) Total Protein 6.2 g/dL (6.4-8.2) Albumin 2.4 g/dL (3.4-5.0) Albumin/Globulin Ratio 0.6 (1.0-1.7) Test 07/25/21 07:48 Glucose (Fingerstick) 122 mg/dL (70-99) Results All relevant outside records, renal labs, imaging studies, telemetry/EKG's were reviewed. Justicifation of Admission Dx: Justifications for Admission: Justification of Admission Dx: N/A ROHIT KNOWLES MD Jul 25, 2021 11:36
[2021-07-25] MEDS: PIPERACILLIN/TAZOBACTAM 3.375 GM in IV NORMAL SALINE 50ML 50 ML IV SCH ×3 (11:56→23:31)
[2021-07-25 15:00] VITALS: BP 143/78
[2021-07-25 19:00] VITALS: BP 157/89
[2021-07-25] MEDS: ATORVASTATIN CALCIUM 10 MG TABLET. PO SCH (21:26)
[2021-07-25] MEDS: guaiFENesin/CODEINE 100mg/10mg 5 ML LIQUID PO PRN (21:26)
[2021-07-25] MEDS: LACTOBACILLUS RHAMNOSUS GG 1 CAPSULE. PO SCH (21:26)
[2021-07-25 23:00] VITALS: BP 147/83
--- NOTE | 2021-07-25 23:46 | PDOC ---
[facility] [facility] PROGRESS NOTE Date of Service DOS: DATE: 07/25/21 TIME: 23:45 Chief Complaint Chief Complaint Shortness of breath, nausea, vomiting, diarrhea, Hypertension, Hyperlipidemia, Diabetes, Acute kidney injury, chronic renal insufficiency History of Present Illness History of Present Illness 07/25 Patient eval and examined at bedside. c/o vomiting, will treat symptomatically.Nephro following. continue covid treatment. 07/24 Patient seen and examined Discussed with RN Chart reviewed Patient sitting in bed comfortably Patient complained of nausea earlier in the day Patient feels cough and chest congestion is improved from earlier 07/23 Patient seen and examined Chart reviewed Discussed with RN Patient affirms cough and requests cough medicine Patient sitting comfortably in chair and is in no apparent distress 07/22 Patient seen and examined Patient sitting comfortable in chair Discussed with RN Chart reviewed Mr. Ramírez is a 56 year old male who was admitted from ER, with hypoxia. Per discussion with patient and chart review, at the time of his admission, he complained of 10 days of nausea, vomiting, diarrhea, shortness of breath with cough. He had eaten almost no food in 10 days leading up to admission and during that time he was not taking pain meds, but had pain, myalgias, and weakness, he tested positive for COVID-19 Previously had been on dialysis but improved. Vitals/I&O Vitals/I&O: Vital Signs Date Time Temp Pulse Resp B/P (MAP) Pulse Ox O2 Delivery O2 Flow Rate FiO2 07/25/21 19:15 Nasal Cannula 3.0 07/25/21 19:00 97.5 73 20 157/89 (111) 98 97.5 I & O 07/24/21 07/24/21 07/25/21 15:00 23:00 07:00 Intake Total 350 ml 390 ml 300 ml Output Total 250 ml Balance 350 ml 390 ml 50 ml Physical Exam General: Alert, Oriented X3, Cooperative, mild distress Heart: Regular rate, No murmurs Lungs: Clear Abdomen: Soft (mild tender, ) Extremities: No clubbing, Normal pulses Skin: No breakdown Labs Labs: Laboratory Tests Test 07/25/21 06:15 07/25/21 07:48 07/25/21 11:39 07/25/21 16:14 White Blood Count 7.5 x10^3/uL (4.0-11.0) Red Blood Count 3.94 x10^6/uL (4.30-5.70) Hemoglobin 12.1 g/dL (13.0-17.5) Hematocrit 36.3 % (39.0-53.0) Mean Corpuscular Volume 92 fL (79-100) Mean Corpuscular Hemoglobin 31 pg (25-35) Mean Corpuscular Hemoglobin Concent 33 g/dL (31-37) Red Cell Distribution Width 13.1 % (11.5-14.5) Platelet Count 191 x10^3/uL (140-400) Neutrophils (%) (Auto) 81 % (31-73) Lymphocytes (%) (Auto) 7 % (24-48) Monocytes (%) (Auto) 12 % (0-9) Eosinophils (%) (Auto) 0 % (0-3) Basophils (%) (Auto) 0 % (0-3) Neutrophils # (Auto) 6.1 x10^3/uL (1.8-7.7) Lymphocytes # (Auto) 0.5 x10^3/uL (1.0-4.8) Monocytes # (Auto) 0.9 x10^3/uL (0.0-1.1) Eosinophils # (Auto) 0.0 x10^3/uL (0.0-0.7) Basophils # (Auto) 0.0 x10^3/uL (0.0-0.2) Sodium Level 143 mmol/L (136-145) Potassium Level 4.1 mmol/L (3.5-5.1) Chloride Level 109 mmol/L (98-107) Carbon Dioxide Level 22 mmol/L (21-32) Anion Gap 12 (6-14) Blood Urea Nitrogen 32 mg/dL (8-26) Creatinine 2.1 mg/dL (0.7-1.3) Estimated GFR (Cockcroft-Gault) 33.1 BUN/Creatinine Ratio 15 (6-20) Glucose Level 102 mg/dL (70-99) Calcium Level 7.2 mg/dL (8.5-10.1) Total Bilirubin 0.4 mg/dL (0.2-1.0) Aspartate Amino Transf (AST/SGOT) 36 U/L (15-37) Alanine Aminotransferase (ALT/SGPT) 49 U/L (16-63) Alkaline Phosphatase 78 U/L (46-116) Total Protein 6.2 g/dL (6.4-8.2) Albumin 2.4 g/dL (3.4-5.0) Albumin/Globulin Ratio 0.6 (1.0-1.7) Glucose (Fingerstick) 122 mg/dL (70-99) 132 mg/dL (70-99) 97 mg/dL (70-99) Assessment and Plan Assessmemt and Plan Problems Medical Problems: (1) SARAH (acute kidney injury) Status: Acute (2) Pneumonia due to COVID-19 virus Status: Acute Comment Review of Relevant I have reviewed the following items mindy (where applicable) has been applied. Medications: Current Medications Medications (Trade) Dose Ordered Sig/Ismael Route PRN Reason Start Time Stop Time Status Last Admin Dose Admin Piperacillin Sod/ Tazobactam Sod 3.375 gm/Sodium Chloride 50 ml @ 100 mls/hr Q6HRS IV 07/25/21 12:00 07/25/21 23:31 Lactobacillus Rhamnosus (Culturelle) 1 cap BID PO 07/25/21 21:00 07/25/21 21:26 Justifications for Admission Other Justification VON SAAB MD Jul 25, 2021 23:46
[2021-07-26 03:18] VITALS: BP 149/86
[2021-07-26 04:21] LABS: BASO % 0 % (0-3); EOS % 0 % (0-3); HEMATOCRIT 32.9 % (39.0-53.0); HEMOGLOBIN 10.9 g/dL (13.0-17.5); LYMPH # 0.6 x10^3/uL (1.0-4.8); LYMPH % 8 % (24-48); MEAN CORPUSCULAR HEMOGLOBIN 30 pg (25-35); MEAN CORPUSCULAR HGB CONC 33 g/dL (31-37); MEAN CORPUSCULAR VOLUME 92 fL (79-100); MONO % 13 % (0-9); NEUT # 6.2 x10^3/uL (1.8-7.7); NEUT % 79 % (31-73); PLATELET COUNT 192 x10^3/uL (140-400); RED BLOOD COUNT 3.59 x10^6/uL (4.30-5.70); WHITE BLOOD COUNT 7.8 x10^3/uL (4.0-11.0)
[2021-07-26 04:36] LABS: CALCIUM 7.1 mg/dL (8.5-10.1); POTASSIUM 3.7 mmol/L (3.5-5.1)
[2021-07-26] MEDS: PIPERACILLIN/TAZOBACTAM 3.375 GM in IV NORMAL SALINE 50ML 50 ML IV SCH ×3 (05:14→17:27)
[2021-07-26] MEDS: HEPARIN for SUB-Q USE 5,000 UNIT/ML VIAL. SQ SCH ×2 (05:15→14:20)
[2021-07-26 07:00] VITALS: BP 158/80
[2021-07-26] MEDS: INSULIN LISPRO 300 UNITS/3 ML VIAL. SQ SCH ×6 (07:30→17:30)
[2021-07-26] MEDS: CALCIUM CARBONATE 500 MG TAB.CHEW PO SCH ×3 (09:32→17:00)
[2021-07-26] MEDS: LACTOBACILLUS RHAMNOSUS GG 1 CAPSULE. PO SCH (09:32)
[2021-07-26] MEDS: ZINC SULFATE 220 MG CAPSULE. PO SCH (09:33)
[2021-07-26] MEDS: ASCORBIC ACID 1,000 MG TABLET PO SCH (09:33)
[2021-07-26] MEDS: LOSARTAN POTASSIUM 50 MG TABLET. PO SCH (09:35)
[2021-07-26] MEDS: DEXAMETHASONE SOD PHOS 4 MG/ML VIAL IVP SCH (09:35)
--- NOTE | 2021-07-26 09:41 | PDOC ---
DATE OF SERVICE DATE: 07/26/21 TIME: 09:41 SUBJECTIVE ROS States feeling better, wants to go home OBJECTIVE Vital Signs Vital Signs Date Time Temp Pulse Resp B/P (MAP) Pulse Ox O2 Delivery O2 Flow Rate FiO2 07/26/21 09:35 81 158/80 07/26/21 07:00 97.4 17 98 Nasal Cannula 3.0 97.4 I & 0 Intake and Output 07/26/21 06:59 Intake Total 300 ml Output Total 1300 ml Balance -1000 ml Intake Oral 300 ml Output Urine Total 1300 ml # Voids 1 PHYSICAL EXAM Physical Exam General: Alert, Oriented X3, Cooperative,NAD HEENT: Atraumatic, OM moist Lungs: Clear to auscultation, decreased at bases Heart: S1S2, no murmurs, Abdomen: Soft Extremities: No edema Skin: No breakdown, no rash Neuro: Normal speech, Normal tone, Sensation intact Psych/Mental Status: Mental status NL, Mood NL No [place] DIAGNOSIS/ASSESSMENT Assessment & Plan SARAH - Labs drawn at PCP's office- 07/19 Creat was 3.28, hospitalized, Cr peaked at 3.6 - Improving -->2.0 , Non Oliguric . Supportive care , avoid nephrotoxi ns , maintain fluid balance and hydration . Keep FU appt in our office - scheduled for CKD stage 3B - Hx of SARAH/ATN was on HD since Feb 2019, presented with BUN/Cr 200/20 and DKA . Was off HD in Apr 2019 with eGFR cw CKD 3B . Follows with me as OP. last seen in the office Apr 2021 , stable renal function Hypocalcemia- Ca Improved, today 8.5 after correcting for low Albumin . Continue TUMS. No indication for IV Ca replacement currently . Was Vit D deficient. Completed Ergocalciferol for 16 weeks in 2020 ; recommended to continue D3 5000 U QD COVID-19 infection, pneumonitis.O2 Requirements improved Anemia- No indication of BRAD HTN - stable DM II- per primary DC per primary COMMENT/RELEVANT DATA Meds Current Medications Medications (Trade) Dose Ordered Sig/Ismael Start Time Stop Time Status Last Admin Dose Admin Acetaminophen (Tylenol) 650 mg PRN Q4HRS PRN 07/21/21 14:30 07/22/21 14:29 DC Ascorbic Acid (Vitamin C) 1,000 mg DAILY 07/21/21 18:00 07/26/21 09:33 1,000 MG Atorvastatin Calcium (Lipitor) 10 mg QHS 07/21/21 21:00 07/25/21 21:26 10 MG Calcium Carbonate/ Glycine (Tums) 1,000 mg TIDWMEALS 07/23/21 17:00 07/26/21 09:32 1,000 MG Dexamethasone Sodium Phosphate (Decadron) 6 mg DAILY 07/21/21 17:45 07/26/21 09:35 6 MG Dextrose (Dextrose 50%-Water Syringe) 12.5 gm PRN Q15MIN PRN 07/21/21 17:45 Famotidine (Pepcid Vial) 20 mg 1X ONCE 07/21/21 12:45 07/21/21 12:46 DC 07/21/21 13:04 20 MG Fentanyl Citrate (Fentanyl 2ml Vial) 25 mcg 1X ONCE 07/21/21 12:45 07/21/21 12:46 DC 07/21/21 13:08 25 MCG Guaifenesin/ Codeine Phosphate (Robitussin Ac) 5 ml PRN Q6HRS PRN 07/23/21 12:15 07/25/21 21:26 5 ML Heparin Sodium (Porcine) (Heparin Sodium) 5,000 unit Q8HRS 07/21/21 22:00 07/26/21 05:15 5,000 UNIT Influenza Virus Vaccine Quadrival (Flulaval Quad [id number] Syringe) 0.5 ml ONCE ONCE 07/21/21 18:00 07/21/21 18:01 DC 07/21/21 17:06 0.5 ML Insulin Glargine (Lantus Syringe) 40 unit BID 07/21/21 21:00 07/25/21 09:57 40 UNIT Insulin Human Lispro (HumaLOG) 0-9 UNITS QIDACHS 07/21/21 21:00 07/21/21 22:15 5 UNITS Insulin Human Regular (HumuLIN R VIAL) 5 unit 1X ONCE 07/21/21 14:00 07/21/21 14:01 DC 07/21/21 14:30 5 UNIT Lactobacillus Rhamnosus (Culturelle) 1 cap BID 07/25/21 21:00 07/26/21 09:32 1 CAP Losartan Potassium (Cozaar) 100 mg DAILY 07/21/21 18:00 07/26/21 09:35 100 MG Ondansetron HCl (Zofran) 4 mg PRN Q8HRS PRN 07/21/21 14:30 07/22/21 14:29 DC Piperacillin Sod/ Tazobactam Sod (Zosyn Per Pharmacy) 1 each PRN DAILY PRN 07/21/21 17:45 Piperacillin Sod/ Tazobactam Sod 2.25 gm/Sodium Chloride 50 ml @ 100 mls/hr Q6HRS 07/21/21 19:00 07/25/21 11:01 DC 07/25/21 05:10 100 MLS/HR Piperacillin Sod/ Tazobactam Sod 3.375 gm/Sodium Chloride 50 ml @ 100 mls/hr Q6HRS 07/25/21 12:00 07/26/21 05:14 100 MLS/HR Prochlorperazine Edisylate (Compazine) 10 mg PRN Q6HRS PRN 07/24/21 12:15 07/25/21 23:35 10 MG Sodium Chloride 1,000 ml @ 100 mls/hr Q10H 07/21/21 18:00 07/25/21 23:31 100 MLS/HR Zinc Sulfate (Orazinc) 220 mg DAILY 07/21/21 18:00 07/26/21 09:33 220 MG Lab Laboratory Tests Test 07/25/21 11:39 07/25/21 16:14 07/26/21 04:05 07/26/21 08:02 Glucose (Fingerstick) 132 mg/dL (70-99) 97 mg/dL (70-99) 84 mg/dL (70-99) White Blood Count 7.8 x10^3/uL (4.0-11.0) Red Blood Count 3.59 x10^6/uL (4.30-5.70) Hemoglobin 10.9 g/dL (13.0-17.5) Hematocrit 32.9 % (39.0-53.0) Mean Corpuscular Volume 92 fL (79-100) Mean Corpuscular Hemoglobin 30 pg (25-35) Mean Corpuscular Hemoglobin Concent 33 g/dL (31-37) Red Cell Distribution Width 13.0 % (11.5-14.5) Platelet Count 192 x10^3/uL (140-400) Neutrophils (%) (Auto) 79 % (31-73) Lymphocytes (%) (Auto) 8 % (24-48) Monocytes (%) (Auto) 13 % (0-9) Eosinophils (%) (Auto) 0 % (0-3) Basophils (%) (Auto) 0 % (0-3) Neutrophils # (Auto) 6.2 x10^3/uL (1.8-7.7) Lymphocytes # (Auto) 0.6 x10^3/uL (1.0-4.8) Monocytes # (Auto) 1.0 x10^3/uL (0.0-1.1) Eosinophils # (Auto) 0.0 x10^3/uL (0.0-0.7) Basophils # (Auto) 0.0 x10^3/uL (0.0-0.2) Sodium Level 143 mmol/L (136-145) Potassium Level 3.7 mmol/L (3.5-5.1) Chloride Level 109 mmol/L (98-107) Carbon Dioxide Level 24 mmol/L (21-32) Anion Gap 10 (6-14) Blood Urea Nitrogen 26 mg/dL (8-26) Creatinine 2.0 mg/dL (0.7-1.3) Estimated GFR (Cockcroft-Gault) 35.0 Glucose Level 85 mg/dL (70-99) Calcium Level 7.1 mg/dL (8.5-10.1) Results All relevant outside records, renal labs, imaging studies, telemetry/EKG's were reviewed. Justicifation of Admission Dx: Justifications for Admission: Justification of Admission Dx: N/A ROHIT KNOWLES MD Jul 26, 2021 09:41
[2021-07-26] MEDS: INSULIN GLARGINE SYRINGE. SQ SCH (09:46)
--- NOTE | 2021-07-26 10:37 | NUR ---
SS following up with discharge planning. SS reviewed pt chart and discussed with pt RN. Pt is from home and is currently requiring oxygen at three liters nasal canula. COVID19 positive. Pt has no home oxygen. Pt on IV Zosyn and IV Decadron. Not ready. SS will continue to follow for discharge planning.
[2021-07-26 11:00] VITALS: BP 164/85
[2021-07-26] MEDS: IV NORMAL SALINE 1000ML BAG 1,000 ML IV SCH (12:28)
[2021-07-26 15:00] VITALS: BP 165/84
--- NOTE | 2021-07-26 19:20 | NUR ---
Discharge Note: B[facility]T Discharge instructions and discharge home medications reviewed with Patient and a copy given. All questions have been answered and understanding verbalized. The following instructions and handouts were given: follow up information, medication education, worsening symptoms, pneumonia and COVID education. Discontinued lines and drains: IV was discontinued from LAC, and telemetry removed, skin intact. Patient discharged to home with self care accompanied by family member via private vehicle, all belongings sent with patient. Patient verbalized understanding of discharge instructions.
== END 2021-07-26 19:26 | disposition home or self-care (01) | DRG 871 ==
LOC: ER 11:57 → 5 NORTH 14:21
PROVIDERS: ADMIT Internal Medicine; ATTEND Internal Medicine
DX: A41.89 Other specified sepsis (principal); U07.1 COVID-19; J12.82 Pneumonia due to coronavirus disease 2019; N17.0 Acute kidney failure with tubular necrosis; E11.22 Type 2 diabetes mellitus with diabetic chronic kidney disease; E78.5 Hyperlipidemia, unspecified; E83.51 Hypocalcemia; I12.9 Hypertensive chronic kidney disease with stage 1 through stage 4 chronic kidney disease, or unspecified chronic kidney disease; N18.9 Chronic kidney disease, unspecified; R09.02 Hypoxemia; Z82.49 Family history of ischemic heart disease and other diseases of the circulatory system; Z83.3 Family history of diabetes mellitus; R07.89 Other chest pain; E11.65 Type 2 diabetes mellitus with hyperglycemia; Z79.4 Long term (current) use of insulin; D64.9 Anemia, unspecified; N18.32 Chronic kidney disease, stage 3b
CPT/HCPCS: 36415; 36600; 71045; 74176; 80048; 80053; 82010; 82805; 82962; 83605; 83690; 84484; 85025; 87040; 87426; 87804; 90471; 90686; 93005; 96365; 96375; J0780; J1100; J1644; J1815; J2405; J2543; J3010; J3490; J7030; 99285-25; G0378